=== PATIENT | female | born 1945 | race Caucasian/White ===

== ENCOUNTER 2016-07-29 09:40 | Emergency (ER) | payer OTHER ==
[~2016-07-29] VITALS: Ht 160 cm; Wt 66.3 kg
[~2016-07-29 09:40] MED LIST changes: -ACET-1256 PO; -ASPI81TA28 PO; -ATV5X PO; -CALC0.2510 PO; -CALC1TAB23 PO; -CARV25TA2 PO; -CEPH500C PO; -CHOL2000 PO; -CRD200 PO; -CTP1CL PO; -CYAN100020 PO; -DMD20 PO; -HYDR100T3 PO; -INSDGIPEN SQ; -LORA10TA5 PO; -LPT40 PO; -LXP10 PO; -MULT-603 PO; -NVLGI/PEN SC; -POLY335019 PO; -PROB1TAB16 PO; -PYRI100T4 PO; -RANI150T2 PO; -WARF-283 PO
[2016-07-29 09:44] VITALS: TEMP 36.5; Ht 160 cm; Wt 66.3 kg
[2016-07-29] MEDS ORDERED: SODIUM CHLORIDE 0.9% 1000ML 500 ML IV STA (10:21)
[2016-07-29 11:09] VITALS: O2SAT 96
--- NOTE | 2016-07-29 11:10 | DIAGNOSTIC IMAGING REPORT ---
CT HEAD WITHOUT CONTRAST (CT) CLINICAL HISTORY: Altered mental status. Weakness. COMPARISON STUDY: 07/16/2015 TECHNIQUE: Axial CT of the brain is performed from the vertex to the skull base. IV contrast was not administered for this examination. CT DOSE: 720.95 mGycm FINDINGS: No intra or extra-axial mass lesions are visualized. There is no CT evidence of acute cortical infarction. There is no evidence of midline shift. There is no acute hemorrhage. No calvarial fractures are visualized. There are moderate white matter hypodensities likely on a small vessel basis. There is no evidence of pathologic ventricular dilatation. There is no evidence of acute sinusitis Bilateral basal ganglia calcifications and cerebellar calcifications remain stable. IMPRESSION: No acute intracranial findings Electronically signed by: Tex Sanders M.D. 07/29/2016 11:08 AM Dictated Date/Time: 07/29/2016 11:07 AM
--- NOTE | 2016-07-29 11:21 | DIAGNOSTIC IMAGING REPORT ---
CT OF THE CERVICAL SPINE CLINICAL HISTORY: Neck pain status post trauma COMPARISON STUDY: 07/16/2015 CT DOSE: 518.47 mGycm TECHNIQUE: CT scan of the cervical spine was performed from the skull base to the thoracic inlet. Images are reviewed in the axial, sagittal, and coronal planes. IV contrast was not administered for this examination. FINDINGS: There is a multinodular thyroid gland with nodules measuring up to 5 mm in diameter. There is no pneumothorax. There is a small chronic right mastoid effusion. The prevertebral soft tissues are normal. No fractures or subluxations are visualized. There are moderate multilevel degenerative changes. There is a stable sclerotic lesion within the base of the T1 spinous process. IMPRESSION: No evidence of acute fracture or traumatic subluxation. Electronically signed by: Tex Sanders M.D. 07/29/2016 11:20 AM Dictated Date/Time: 07/29/2016 11:14 AM
[2016-07-29 11:36] LABS: BASO % 0.6 %; BASO ABS # 0.03 K/uL (0-0.2); COMPLETE YES; EOS % 3.6 %; HEMATOCRIT 36.5 % (37-47); IG% 0.2 %; LYMPH % 14.2 %; LYMPH ABS # 0.68 K/uL (1.2-3.4); MEAN CELL VOLUME 92.2 fL (80-100); MEAN CORPUSCULAR HEMOGLOBIN 31.8 pg (25-34); MEAN CORPUSCULAR HGB CONC 34.5 g/dl (32-36); MEAN PLATELET VOLUME 10.9 fL (7.4-10.4); MONO % 12.8 %; NEUT % 68.6 %; PLATELET COUNT 105 K/uL (130-400); RED BLOOD COUNT 3.96 M/uL (4.2-5.4); WHITE BLOOD COUNT 4.78 K/uL (4.8-10.8)
[2016-07-29 11:46] LABS: INR 1.8 (0.9-1.1); PARTIAL THROMBOPLASTIN RATIO 1.2; PROTHROMBIN TIME (PATIENT) 19.4 SECONDS (9.0-12.0)
[2016-07-29 11:56] LABS: ALT/SGPT 28 U/L (12-78); AST/SGOT 26 U/L (15-37); BLOOD UREA NITROGEN 25 mg/dl (7-18); BUN/CREATININE RATIO 8.3 (10-20); CALCIUM 9.5 mg/dl (8.5-10.1); CARBON DIOXIDE 28 mmol/L (21-32); CHLORIDE 101 mmol/L (98-107); GLUCOSE 238 mg/dl (70-99); POTASSIUM 4.3 mmol/L (3.5-5.1); SODIUM 137 mmol/L (136-145)
[2016-07-29 12:01] LABS: ALB/GLOB RATIO 1.2 (0.9-2); ALKALINE PHOSPHATASE 93 U/L (45-117)
[2016-07-29 12:33] VITALS: BP 195/85; PULSE 60; O2SAT 96
--- NOTE | 2016-07-29 14:19 | EMERGENCY ROOM VISIT NOTE ---
History Report prepared by Maurisio: Sharee Emery Under the Supervision of: Dr. Colten Mckenna M.D. First contact with patient: 10:14 Chief Complaint: FALL Stated Complaint: FALL, HEAD PAIN History of Present Illness The patient is a 71 year old female who presents to the Emergency Room with complaints of increased pain to the back of her head and neck since suffering a fall last evening. Currently, she has a mild headache, but she states that she feels the most pain in the back of her neck, and she rates her discomfort as a 7 /10. At the time of onset, the patient was helping her in the shower when she turned around to get something and tripped, hitting the back of her head and neck on the door as she fell to the ground. The patient did not lose consciousness during the episode, but she states that she has had a mild headache since that time. Patient denies suffering pain or injuries to her back , chest, abdomen, pelvis or lower extremities, however, she noticed that her bilateral arms felt weak and painful this morning. The patient states that she has been prepping for a colonoscopy procedure this morning, and she was unsure if her arm pain/weakness was secondary to not eating anything in preparation for the procedure, or due to the position she landed in when she fell last evening. The patient did go to her colonoscopy appointment this morning, but was then referred to the ED for further evaluation as her blood pressure was found to be elevated, and they wanted to make sure that there were no other complications before continuing with the procedure. Patient states does have a history of hypertension and took her Coreg, clonidine and amiodarone as prescribed this morning, but did not take her normal dose of Hydralazine yet this morning as GI instructed her not to take it before the procedure. She currently has a pacemaker in place. Patient denies recent fevers, chills, chest pain, shortness of breath, abdominal pain, nausea, vomiting, diarrhea or urinary symptoms above baseline. Patient is currently on dialysis (Friday, , Friday), but still makes urine. Source of History: patient Onset: last evening Position: head, neck Symptom Intensity: 7/10 Timing: other (current) Associated Symptoms: + headache, + weakness (bilateral arms), No LOC, No SOB , No abdominal pain, No chest pain, No chills, No diarrhea, No fevers, No nausea , No urinary symptoms, No vomiting Review of Systems See HPI for pertinent positives & negatives. A total of 10 systems reviewed and were otherwise negative. 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 (13) Gastroesophageal reflux disease (14) Gram-positive bacteremia (15) Heart failure (16) Hematoma of arm (17) Hypertensive urgency (18) Hypertensive urgency (19) Hypertensive urgency (20) Hysterectomy (21) ICD (22) Left bundle branch block (23) Weakness Family History Diabetes mellitus Heart disease Social History Smoking Status: Never Smoker Alcohol Use: none Drug Use: none Marital Status: Housing Status: lives with family Occupation Status: retired Current/Historical Medications Scheduled Amiodarone Hcl (Cordarone), 200 MG PO QAM Aspirin (Aspirin Ec), 81 MG PO QAM Carvedilol (Carvedilol), 50 MG PO BID Cholecalciferol (Vitamin D3), 4,000 UNITS PO QAM Clonidine HCl (Clonidine HCl), 0.1 MG PO BID Cyanocobalamin (Vitamin B12 500MCG), 1,000 MCG PO QAM Escitalopram (Lexapro), 10 MG PO QAM Hydralazine HCl (Hydralazine HCl), 100 MG PO Q8 Insulin Aspart (Novolog Flexpen), 1 DOSE SC DIRECTED Insulin Glargine (Lantus Solostar), 10 UNITS SQ HS Loratadine (Claritin), 10 MG PO QAM Multiple Vitamin (Multivitamin), 1 TAB PO QAM Probiotic Product (Probiotic), 1 TAB PO QAM Ranitidine (Zantac), 150 MG PO BID Torsemide (Demadex), 10 MG PO QAM Warfarin Sod (Coumadin), 4 MG PO DAILY Allergies Coded Allergies: Diphenhydramine (Verified Allergy, Mild, VERY WEAK, CHF, 07/29/16) Sulfa Antibiotics (Verified Allergy, Mild, "KNOCKS ME OUT", 07/29/16) Adhesives (Verified Allergy, Unknown, RXN TO ADHESIVE ON NITRO PATCH, 07/29) [place] (Verified Allergy, Unknown, UNKNOWN, 07/29/16) DESIREE Inhibitors (Verified Adverse Reaction, Mild, COUGH, 07/29/16) CAUSES COUGH Lisinopril (Verified Adverse Reaction, Mild, COUGH, 07/29/16) Nitroglycerin (Verified Adverse Reaction, Mild, HEADACHE/NAUSEA, 07/29/16) Amlodipine (Verified Adverse Reaction, Unknown, RETAIN FLUID , 07/29/16) Physical Exam Vital Signs Date Time Temp Pulse Resp B/P Pulse Ox O2 Delivery O2 Flow Rate FiO2 07/29/16 12:33 60 16 195/85 96 Room Air 07/29/16 11:09 96 Room Air 07/29/16 11:09 60 16 204/85 95 Room Air 07/29/16 10:38 60 07/29/16 09:44 36.5 60 18 206/91 98 Room Air Physical Exam GENERAL: Patient is in no acute distress. HEENT: No acute trauma, normocephalic atraumatic, mucous membranes moist, no nasal congestion, no scleral icterus. NECK: Stiff collar in place. LUNGS: Clear to auscultation bilaterally, no wheeze, no rhonchi, breath sounds equal. HEART: 3/6 systolic murmur with a regular rate and rhythm. ABDOMEN: Soft, nontender, bowel sounds positive, no hernias, no peritonitis. EXTREMITIES: No cyanosis or edema, full range of motion of all the joints without pain or difficulty, no signs for acute trauma. NEUROLOGIC: Oriented x 3, no acute motor or sensory deficits, no focal weakness. SKIN: No rash, no jaundice, no diaphoresis. Medical Decision & Procedures ER Provider Diagnostic Interpretation: CT results as stated below per my review and radiologist interpretation: CT HEAD WITHOUT CONTRAST (CT) CLINICAL HISTORY: Altered mental status. Weakness. COMPARISON STUDY: 07/16/2015 TECHNIQUE: Axial CT of the brain is performed from the vertex to the skull base. IV contrast was not administered for this examination. CT DOSE: 720.95 mGycm FINDINGS: No intra or extra-axial mass lesions are visualized. There is no CT evidence of acute cortical infarction. There is no evidence of midline shift. There is no acute hemorrhage. No calvarial fractures are visualized. There are moderate white matter hypodensities likely on a small vessel basis. There is no evidence of pathologic ventricular dilatation. There is no evidence of acute sinusitis Bilateral basal ganglia calcifications and cerebellar calcifications remain stable. IMPRESSION: No acute intracranial findings Electronically signed by: Tex Sanders M.D. 07/29/2016 11:08 AM Dictated Date/Time: 07/29/2016 11:[address] OF THE CERVICAL SPINE CLINICAL HISTORY: Neck pain status post trauma COMPARISON STUDY: 07/16/2015 CT DOSE: 518.47 mGycm TECHNIQUE: CT scan of the cervical spine was performed from the skull base to the thoracic inlet. Images are reviewed in the axial, sagittal, and coronal planes. IV contrast was not administered for this examination. FINDINGS: There is a multinodular thyroid gland with nodules measuring up to 5 mm in diameter. There is no pneumothorax. There is a small chronic right mastoid effusion. The prevertebral soft tissues are normal. No fractures or subluxations are visualized. There are moderate multilevel degenerative changes. There is a stable sclerotic lesion within the base of the T1 spinous process. IMPRESSION: No evidence of acute fracture or traumatic subluxation. Electronically signed by: Tex Sanders M.D. 07/29/2016 11:20 AM Dictated Date/Time: 07/29/2016 11:14 AM Laboratory Results 07/29/16 11:20 Red Blood Count 3.96, Mean Corpuscular Volume 92.2, Mean Corpuscular Hemoglobin 31.8, Mean Corpuscular Hemoglobin Concent 34.5, Mean Platelet Volume 10.9, Neutrophils (%) (Auto) 68.6, Lymphocytes (%) (Auto) 14.2, Monocytes (%) (Auto) 12.8, Eosinophils (%) (Auto) 3.6, Basophils (%) (Auto) 0.6, Neutrophils # (Auto ) 3.28, Lymphocytes # (Auto) 0.68, Monocytes # (Auto) 0.61, Eosinophils # (Auto ) 0.17, Basophils # (Auto) 0.03 07/29/16 11:20 Test 07/29/16 11:20 White Blood Count 4.78 K/uL (4.8-10.8) Red Blood Count 3.96 M/uL (4.2-5.4) Hemoglobin 12.6 g/dL (12.0-16.0) Hematocrit 36.5 % (37-47) Mean Corpuscular Volume 92.2 fL (80-100) Mean Corpuscular Hemoglobin 31.8 pg (25-34) Mean Corpuscular Hemoglobin Concent 34.5 g/dl (32-36) Platelet Count 105 K/uL (130-400) Mean Platelet Volume 10.9 fL (7.4-10.4) Neutrophils (%) (Auto) 68.6 % Lymphocytes (%) (Auto) 14.2 % Monocytes (%) (Auto) 12.8 % Eosinophils (%) (Auto) 3.6 % Basophils (%) (Auto) 0.6 % Neutrophils # (Auto) 3.28 K/uL (1.4-6.5) Lymphocytes # (Auto) 0.68 K/uL (1.2-3.4) Monocytes # (Auto) 0.61 K/uL (0.11-0.59) Eosinophils # (Auto) 0.17 K/uL (0-0.5) Basophils # (Auto) 0.03 K/uL (0-0.2) RDW Standard Deviation 49.1 fL (36.4-46.3) RDW Coefficient of Variation 14.5 % (11.5-14.5) Immature Granulocyte % (Auto) 0.2 % Immature Granulocyte # (Auto) 0.01 K/uL (0.00-0.02) Prothrombin Time 19.4 SECONDS (9.0-12.0) Prothromb Time International Ratio 1.8 (0.9-1.1) Activated Partial Thromboplast Time 31.3 SECONDS (21.0-31.0) Partial Thromboplastin Ratio 1.2 Anion Gap 8.0 mmol/L (3-11) Est Creatinine Clear Calc Drug Dose 15.7 ml/min Estimated GFR () 17.4 Estimated GFR (Non- 15.0 BUN/Creatinine Ratio 8.3 (10-20) Calcium Level 9.5 mg/dl (8.5-10.1) Total Bilirubin 0.8 mg/dl (0.2-1) Aspartate Amino Transf (AST/SGOT) 26 U/L (15-37) Alanine Aminotransferase (ALT/SGPT) 28 U/L (12-78) Alkaline Phosphatase 93 U/L (45-117) Troponin I < 0.015 ng/ml (0-0.045) Total Protein 6.9 gm/dl (6.4-8.2) Albumin 3.7 gm/dl (3.4-5.0) Globulin 3.2 gm/dl (2.5-4.0) Albumin/Globulin Ratio 1.2 (0.9-2) Laboratory results reviewed by me. Medications Administered Medications (Trade) Dose Ordered Sig/Rayna Route Start Time Stop Time Status Last Admin Dose Admin Hydralazine HCl (Apresoline Tab) 100 mg NOW STAT PO 07/29/16 10:21 07/29/16 10:29 DC 07/29/16 10:44 100 MG ECG Indication: weakness Rate (beats per minute): 60 Rhythm: other (AV dual paced) Findings: no acute ischemic change Change: no significant change (when compared to EKG from 04/08/16.) ED Course 1016: The patient was evaluated in room C9. A complete history and physical exam was performed. 1021: Hydralazine HCl 100 mg PO and NSS bolus IV were ordered. 1216: Upon reevaluation, the patient was doing well and appeared to be resting comfortably. I updated her on the results of her radiology reports and lab tests. Stiff c-collar was removed without complications. Discharge instructions were also discussed. She verbalized her understanding and agreement with the treatment plan, and she is now ready for disposition. Medical Decision The patient is a 71 year old female who presents to the ED with complaints of increased pain to the back of her head and neck since suffering a fall last evening. Differential diagnoses considered include intracranial bleeding, skull fracture, cervical spine fracture, cervical cord contusion, cervical strain, anemia, electrolyte imbalance, infection. There is no leukocytosis or worrisome anemia. Renal panel testing shows a high creatinine consistent with her dialysis use. No significant electrolyte abnormality requiring correction. There was no hepatitis. INR is elevated at 1.8 consistent with her Coumadin use. Brain CT shows no skull fracture or acute bleeding. C-spine CT shows no acute fracture. On exam, the patient had no focal neurologic deficits. Her collar was eventually removed, she felt better with the cervical collar off, her neck motion was full without significant pain. The patient received IV saline, as she had not received her oral hydralazine this morning, this dose was given. The patient was reassured by her findings. She has suffered some head trauma and a cervical strain. She can be discharged. She will return for worsening symptoms. Impression Primary Impression: Head pain Additional Impressions: Head trauma Neck pain Fall Scribe Attestation The scribe's documentation has been prepared under my direction and personally reviewed by me in its entirety. I confirm that the note above accurately reflects all work, treatment, procedures, and medical decision making performed by me. Departure Information Dispostion Home / Self-Care Referrals Luh Hargrove M.D. (PCP) Forms HOME CARE DOCUMENTATION FORM, IMPORTANT VISIT INFORMATION Patient Instructions My [facility] Additional Instructions tylenol for pain ice to the sore areas return for worsening symptoms or weakness imaging today was all ok Problem Qualifiers
[2016-12-24] MEDS ORDERED: INSDGIPEN SQ (17:00)
[2017-02-28] MEDS ORDERED: CHOL2000 PO (14:46)
== END 2016-07-29 12:45 | disposition home or self-care (01) ==
LOC: EDBD 09:40 → C.EDC 09:41
DX: R51 Headache (principal); S09.90XA Unspecified injury of head, initial encounter; M54.2 Cervicalgia; W01.0XXA Fall on same level from slipping, tripping and stumbling without subsequent striking against object, initial encounter; Y92.012 Bathroom of single-family (private) house as the place of occurrence of the external cause; I12.9 Hypertensive chronic kidney disease with stage 1 through stage 4 chronic kidney disease, or unspecified chronic kidney disease; N18.3 Chronic kidney disease, stage 3 (moderate); E11.9 Type 2 diabetes mellitus without complications; I48.91 Unspecified atrial fibrillation; E78.5 Hyperlipidemia, unspecified; I50.9 Heart failure, unspecified; Z95.0 Presence of cardiac pacemaker; D64.9 Anemia, unspecified; K21.9 Gastro-esophageal reflux disease without esophagitis; F32.9 Major depressive disorder, single episode, unspecified; Z79.82 Long term (current) use of aspirin; Z79.4 Long term (current) use of insulin; Z79.899 Other long term (current) drug therapy; Z12.11 Encounter for screening for malignant neoplasm of colon; Z53.8 Procedure and treatment not carried out for other reasons; Z79.01 Long term (current) use of 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; Z86.73 Personal history of transient ischemic attack (TIA), and cerebral infarction without residual deficits; G40.909 Epilepsy, unspecified, not intractable, without status epilepticus

== ENCOUNTER → 2016-07-29 | Day surgery (SDC) | payer OTHER ==
[2016-07-25 14:48] VITALS: Ht 162.6 cm; Wt 68.2 kg
[~2016-07-29] VITALS: Ht 162.6 cm; Wt 68.2 kg
[~2016-07-29] MED LIST: ACET-1256 PO; AMIO200T4 PO; APR50 PO; ASPI81TA28 PO; ATV5X PO; CALC0.2510 PO; CALC1TAB23 PO; CARV25TA2 PO; CEPH500C PO; CHOL2000 PO; CMD4 PO; CRD200 PO; CRG25 PO; CTP1 PO; CTP1CL PO; CYAN100020 PO; CYAN500T13 PO; DMD20 PO; ESCI10TA17 PO; HYDR100T3 PO; INSDGIPEN SQ; LORA10TA5 PO; LPT40 PO; LXP10 PO; MULT-603 PO; MULTTAB58 PO; NVLGI/PEN SC; POLY335019 PO; PROB1TAB16 PO; PYRI100T4 PO; RANI150T2 PO; TORS20TA2 PO; WARF-283 PO; ZNTT/150 PO
[2016-07-29 09:32] VITALS: BP 205/92; PULSE 60; TEMP 36.5; O2SAT 99
--- NOTE | 2016-07-29 09:39 | Endo History and Physical ---
History & Physical Date of Service: Jul 29, 2016. Chief Complaint: Screening Referring Physician: Dr. Sallei Hargrove History of Present Illness Patient here for screening colonoscopy. Patient fell today helping her and hit her head. She is on Coumadin and her BP is significantly elevated. After discussion with Anesthesia, the case was cancelled and patient was sent to ER for evaluation. Message was sent to reschedule at a later date. Past Medical History Diabetes, Arthritis, Pacemaker, Anxiety, Seizure Disorder, CHF, Hypertension, CVA/TIA, Depression Past Surgical History Hx Cardiac Surgery: Yes (HEART CATH (AT LEAST 2 TIMES)-NO STENTS) Hx Internal Defibrillator: Yes (PACEMAKER/DEFIB) Hx Pacemaker: Yes (PACEMAKER/DEFIB) Hx Abdominal Surgery: Yes (APPY, PARTIAL HYSTERECTOMY, D&C) Hx of Implantable Prosthesis: No Hx Post-Op Nausea and Vomiting: Yes Hx Cancer Surgery: No Hx Thoracic Surgery: Yes (PERICARDIAL WINDOW (INCISION OF HEART SAC FOR FLUID IN HEART)) Hx Orthopedic: No Hx Urinary Tract Surgery: No Family History None Social History Smoking Status: Never Smoker Hx Substance Use: No Hx Alcohol Use: No Allergies Coded Allergies: Diphenhydramine (Verified Allergy, Mild, VERY WEAK, CHF, 07/29/16) Sulfa Antibiotics (Verified Allergy, Mild, "KNOCKS ME OUT", 07/29/16) Adhesives (Verified Allergy, Unknown, RXN TO ADHESIVE ON NITRO PATCH, 07/29) [place] (Verified Allergy, Unknown, UNKNOWN, 07/29/16) DESIREE Inhibitors (Verified Adverse Reaction, Mild, COUGH, 07/29/16) CAUSES COUGH Lisinopril (Verified Adverse Reaction, Mild, COUGH, 07/29/16) Nitroglycerin (Verified Adverse Reaction, Mild, HEADACHE/NAUSEA, 07/29/16) Amlodipine (Verified Adverse Reaction, Unknown, RETAIN FLUID , 07/29/16) Current Medications Reported Home Medications Medications Dose Route/Sig Max Daily Dose Days Date Category Dose Instructions Vitamin B12 500MCG (Cyanocobalamin) 500 Mcg Tab 2 Tab PO QAM 07/25/16 Reported Vitamin D3 (Cholecalciferol) 2,000 Unit Cap 2 Cap PO QAM 90 07/25/16 Reported Cordarone (Amiodarone Hcl) 200 Mg Tab 200 Mg PO QAM 07/25/16 Reported Demadex (Torsemide) 20 Mg Tab 10 Mg PO QAM 07/25/16 Reported Probiotic (Probiotic Product) 1 Tab Tab 1 Tab PO QAM 04/08/16 Reported Lantus Solostar (Insulin Glargine) 100 Unit/Ml Inj 10 Units SQ HS 04/08/16 Reported Lexapro (Escitalopram Oxalate) 10 Mg Tab 10 Mg PO QAM 04/08/16 Reported Hydralazine HCl 50 Mg Tab 100 Mg PO Q8 30 07/26/15 Rx Clonidine HCl 0.1 Mg Tab 0.1 Mg PO BID 30 07/26/15 Rx Carvedilol 25 Mg Tab 50 Mg PO BID 30 07/26/15 Rx Zantac (Ranitidine HCl) 150 Mg Tab 150 Mg PO BID 07/16/15 Reported Coumadin (Warfarin Sod) 4 Mg Tab 4 Mg PO DAILY 07/16/15 Reported Aspirin Ec (Aspirin) 81 Mg Tab 81 Mg PO QAM 05/29/15 Reported Novolog Flexpen (Insulin Aspart) 100 Units/Ml Inj 1 Dose SC DIRECTED 07/06/14 Reported SLIDING SCALE Multivitamin (Multiple Vitamin) 1 Tab Tab 1 Tab PO QAM 04/28/12 Reported Claritin (Loratadine) 10 Mg Tab 10 Mg PO QAM 11/07/11 Reported Vital Signs Weight (Kilograms): 68.18 Height (Feet): 5 Height (Inches): 4 Date Time Temp Pulse Resp B/P Pulse Ox O2 Delivery O2 Flow Rate FiO2 07/29/16 09:32 36.5 60 20 205/92 99 Room Air Physical Exam General Appearance: no apparent distress (several small bruises on body) Respiratory/Chest: Auscultation: breath sounds normal Cardiovascular: Heart Auscultation: RRR (with ectopy) Abdomen: Inspection & Palpation: soft, no masses Assessment and Plan colonoscopy cancelled.
--- NOTE | 2016-07-29 10:32 | Anesthesiology Progress Note ---
Anesthesia Progress Note Date of Service Jul 29, 2016. Progress Notes Patient presented this am for colonoscopy.Pt is taking warfarin.Pt admitted to having a fall last evening of07/28/2015 and hitting her head.I have discussed this with Dr Luther. He agrees that the patient should go to ER and be evaluated. We both feel that it's best to cancel the procedure as the risks outweigh the benefits.
== END | disposition home or self-care (01) ==
LOC: C.GI 08:39
PROVIDERS: ATTEND Internal Medicine Gastroenterology
DX: Z12.11 Encounter for screening for malignant neoplasm of colon (principal); I10 Essential (primary) hypertension; Z53.8 Procedure and treatment not carried out for other reasons; Z79.01 Long term (current) use of 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; E11.9 Type 2 diabetes mellitus without complications; Z86.73 Personal history of transient ischemic attack (TIA), and cerebral infarction without residual deficits; G40.909 Epilepsy, unspecified, not intractable, without status epilepticus; Z95.810 Presence of automatic (implantable) cardiac defibrillator

== ENCOUNTER 2016-12-24 21:52 | Emergency (ER) | payer OTHER ==
[~2016-12-24] VITALS: Ht 160 cm; Wt 48.0 kg
[~2016-12-24 21:52] MED LIST changes: +INSDGIPEN SQ
[2016-12-24 21:56] VITALS: TEMP 36.6; Ht 160 cm; Wt 48.0 kg
--- NOTE | 2016-12-24 22:54 | DIAGNOSTIC IMAGING REPORT ---
CHEST ONE VIEW PORTABLE CLINICAL HISTORY: Atypical chest pain. COMPARISON STUDY: 04/09/2016 FINDINGS: There is a left subclavian pacer/defibrillator present. There is a dual-lumen left subclavian central venous catheter. The heart is enlarged. There is no overt failure. There is no lobar consolidation. There are linear atelectatic changes within the left lower lung zone.[ IMPRESSION: Cardiomegaly. Left middle and lower lung zone atelectatic change. Electronically signed by: Tex Sanders M.D. 12/24/2016 10:52 PM Dictated Date/Time: 12/24/2016 10:52 PM
--- NOTE | 2016-12-24 22:55 | DIAGNOSTIC IMAGING REPORT ---
LEFT HAND MIN 3 VIEWS ROUTINE CLINICAL HISTORY: Left hand pain status post trauma COMPARISON: None. DISCUSSION: The bones are osteopenic. There are no acute fractures or dislocations. There are osteoarthritic changes most pronounced the level the first carpometacarpal joint, and distal interphalangeal joint of the index finger. IMPRESSION: Degenerative change. No acute fractures are visualized. Electronically signed by: Tex Sanders M.D. 12/24/2016 10:53 PM Dictated Date/Time: 12/24/2016 10:53 PM
--- NOTE | 2016-12-24 22:56 | DIAGNOSTIC IMAGING REPORT ---
RIGHT KNEE 1 OR 2 VIEWS ROUTINE CLINICAL HISTORY: RIGHT KNEE PAIN STATUS POST TRAUMA COMPARISON: None. DISCUSSION: There are moderate degenerative changes with moderate medial joint compartment narrowing. There are medial and lateral joint compartment osteophytic spurs. There is a dorsal patellar spur. No acute fractures or dislocations are visualized. There is no radiographic evidence of a significant joint effusion. IMPRESSION: Moderate osteoarthritic change. No acute fractures. Electronically signed by: Tex Sanders M.D. 12/24/2016 10:55 PM Dictated Date/Time: 12/24/2016 10:54 PM
[2016-12-24 23:17] LABS: BASO % 0.3 %; BASO ABS # 0.02 K/uL (0-0.2); COMPLETE YES; EOS % 1.9 %; HEMATOCRIT 33.4 % (37-47); IG% 0.6 %; LYMPH ABS # 1.02 K/uL (1.2-3.4); MEAN CELL VOLUME 95.2 fL (80-100); MEAN CORPUSCULAR HEMOGLOBIN 30.8 pg (25-34); MEAN CORPUSCULAR HGB CONC 32.3 g/dl (32-36); MEAN PLATELET VOLUME 10.7 fL (7.4-10.4); NEUT % 71.2 %; PLATELET COUNT 117 K/uL (130-400); RED BLOOD COUNT 3.51 M/uL (4.2-5.4); WHITE BLOOD COUNT 6.82 K/uL (4.8-10.8)
[2016-12-24 23:33] LABS: INR 2.3 (0.9-1.1); PARTIAL THROMBOPLASTIN RATIO 1.3; PROTHROMBIN TIME (PATIENT) 25.9 SECONDS (9.0-12.0)
[2016-12-24 23:41] LABS: BUN/CREATININE RATIO 11.2 (10-20); CALCIUM 8.6 mg/dl (8.5-10.1); CREATININE 3.1 mg/dl (0.60-1.20); POTASSIUM 4.4 mmol/L (3.5-5.1)
[2016-12-24 23:50] LABS: BETA-HYDROXYBUTYRATE 1.66 mg/dL (0.2-2.81)
[2016-12-25 01:01] VITALS: BP 189/76; PULSE 60; O2SAT 96
--- NOTE | 2016-12-25 01:07 | EMERGENCY ROOM VISIT NOTE ---
History Report prepared by Maurisio: Linda Wray Under the Supervision of: Dr. Rodolfo Bo M.D. First contact with patient: 22:21 Chief Complaint: FALL Stated Complaint: FELL, HAVE BUMP ON HEAD History of Present Illness The patient is a 71 year old female who presents to the Emergency Room with complaints of a fall at 1930 today. She was walking back into her house and was not looking where she was going when she fell. She hit her head on a post, injured her right knee, and cut her finger. She could feel a bump forming on her head right after she fell. She has a headache. Her cousin reports no confusion after the fall. She denies any bloody stools, vision changes, chest pain, SOB, numbness, weakness, abdominal pain, neck pain, or face pain. She has been feeling well recently. She has a history of diabetes and her sugars have been running high recently. She is on Coumadin. She is a dialysis patient. Source of History: patient Onset: 1929 today Position: other (global) Quality: other (fall) Timing: other (episodic) Associated Symptoms: + headache, No neck pain, No chest pain, No SOB, No abdominal pain, No hematochezia, No weakness, No numbness Note: Pt reports finger pain, right knee pain. Pt denies vision changes. Review of Systems See HPI for pertinent positives & negatives. A total of 10 systems reviewed and were otherwise negative. 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 Nurse's notes were reviewed and I agree with. She gets dialysis on Friday and received dialysis today. Family History Diabetes mellitus Heart disease Social History Smoking Status: Never Smoker Alcohol Use: none Drug Use: none Marital Status: Housing Status: lives with family Occupation Status: retired Current/Historical Medications Scheduled Amiodarone HCl (Amiodarone HCl), 200 MG PO DAILY Aspirin (Aspirin Ec), 81 MG PO QAM Carvedilol (Coreg), 50 MG PO BIDM Cholecalciferol (Vitamin D3), 4,000 INTER.UNIT PO QAM Clonidine Hcl (Catapres), 0.1 MG PO BID Cyanocobalamin (Vitamin B12), 1,000 MCG PO QAM Escitalopram Oxalate (Escitalopram Oxalate), 10 MG PO QAM Hydralazine HCl (Hydralazine HCl), 100 MG PO Q8 Insulin Aspart (Novolog Flexpen), 1 DOSE SC UD Insulin Glargine (Lantus Solostar), 20 UNITS SQ HS Multiple Vitamins W/ Minerals (Womens Multi Vitamin & Mi), 1 TAB PO DAILY Probiotic Product (Probiotic), 1 TAB PO QAM Pyridoxine (Vitamin B6), 100 MG PO DAILY Ranitidine HCl (Ranitidine HCl), 150 MG PO BID Torsemide (Torsemide), 10 MG PO QAM Warfarin Sodium (Warfarin Sodium), 4 MG PO 5XWK Warfarin Sodium (Warfarin Sodium), 6 MG PO 2XWK Scheduled PRN Acetaminophen (Tylenol), 500 MG PO UD PRN for Pain or Fever Loratadine (Claritin), 10 MG PO QAM PRN for Allergy Symptoms Allergies Coded Allergies: Diphenhydramine (Verified Allergy, Mild, VERY WEAK, CHF, 07/29/16) Sulfa Antibiotics (Verified Allergy, Mild, "KNOCKS ME OUT", 07/29/16) Adhesives (Verified Allergy, Unknown, RXN TO ADHESIVE ON NITRO PATCH, 07/29) [place] (Verified Allergy, Unknown, UNKNOWN, 07/29/16) DESIREE Inhibitors (Verified Adverse Reaction, Mild, COUGH, 07/29/16) CAUSES COUGH Lisinopril (Verified Adverse Reaction, Mild, COUGH, 07/29/16) Nitroglycerin (Verified Adverse Reaction, Mild, HEADACHE/NAUSEA, 07/29/16) Amlodipine (Verified Adverse Reaction, Unknown, RETAIN FLUID , 07/29/16) Physical Exam Vital Signs Date Time Temp Pulse Resp B/P (MAP) Pulse Ox O2 Delivery O2 Flow Rate FiO2 12/25/16 01:01 60 20 189/76 96 Room Air 12/24/16 23:23 60 20 189/66 93 Room Air 12/24/16 21:56 36.6 61 18 180/69 97 Room Air Physical Exam General: Non ill appearing older female. Well developed well nourished in no acute distress, breathing comfortably on room air. Normal speech. HEENT: Large hematoma in right forehead, no laceration. Pupils are equal round and reactive to light. Extraocular movements are intact. Oropharynx is pink with moist mucous membranes. No swelling of the mouth lips or tongue. Neck: Supple with a midline trachea. No meningeal signs or stiffness, no JVD or bruits. No Stridor. Chest: Clear to auscultation bilaterally. No wheezes or rhonchi. No increased work of breathing. Catheter in left chest. Heart: regular rate and rhythm. Abdomen: Soft nontender, nondistended without rebound guarding or rigidity. Extremities: No cyanosis clubbing or edema. No calf tenderness or assymetry. Fistula in left arm. Minimal bruising of the left thumb. Mild bruising of the right knee. Spine/Back. Non tender to palpation. No CVA tenderness Skin: Good turgor without rashes. Neurologic exam: Cranial nerves two through 12 are intact. Motor and sensation are intact and symmetrical throughout. GCS of 15. Medical Decision & Procedures ER Provider Diagnostic Interpretation: X-ray results as stated below per interpretation by me and the radiologist. Radiology results as stated below per my review and [facility] radiologist interpretation: RIGHT KNEE 1 OR 2 VIEWS ROUTINE CLINICAL HISTORY: RIGHT KNEE PAIN STATUS POST TRAUMA COMPARISON: None. DISCUSSION: There are moderate degenerative changes with moderate medial joint compartment narrowing. There are medial and lateral joint compartment osteophytic spurs. There is a dorsal patellar spur. No acute fractures or dislocations are visualized. There is no radiographic evidence of a significant joint effusion. IMPRESSION: Moderate osteoarthritic change. No acute fractures. Electronically signed by: Tex Sanders M.D. 12/24/2016 10:55 PM Dictated Date/Time: 12/24/2016 10:54 PM CHEST ONE VIEW PORTABLE CLINICAL HISTORY: Atypical chest pain. COMPARISON STUDY: 04/09/2016 FINDINGS: There is a left subclavian pacer/defibrillator present. There is a dual-lumen left subclavian central venous catheter. The heart is enlarged. There is no overt failure. There is no lobar consolidation. There are linear atelectatic changes within the left lower lung zone.[ IMPRESSION: Cardiomegaly. Left middle and lower lung zone atelectatic change. Electronically signed by: Tex Sanders M.D. 12/24/2016 10:52 PM Dictated Date/Time: 12/24/2016 10:52 PM LEFT HAND MIN 3 VIEWS ROUTINE CLINICAL HISTORY: Left hand pain status post trauma COMPARISON: None. DISCUSSION: The bones are osteopenic. There are no acute fractures or dislocations. There are osteoarthritic changes most pronounced the level the first carpometacarpal joint, and distal interphalangeal joint of the index finger. IMPRESSION: Degenerative change. No acute fractures are visualized. Electronically signed by: Tex Sanders M.D. 12/24/2016 10:53 PM Dictated Date/Time: 12/24/2016 10:[address] Head: Comparison: 07/29/2016 No evidence of acute infarct, hemorrhage, mass, or edema. Chronic small vessel ischemic disease and senescent changes. Moderate-sized frontal right scalp hematoma. The sinuses are patent. Laboratory Results 12/24/16 23:00 Red Blood Count 3.51, Mean Corpuscular Volume 95.2, Mean Corpuscular Hemoglobin 30.8, Mean Corpuscular Hemoglobin Concent 32.3, Mean Platelet Volume 10.7, Neutrophils (%) (Auto) 71.2, Lymphocytes (%) (Auto) 15.0, Monocytes (%) (Auto) 11.0, Eosinophils (%) (Auto) 1.9, Basophils (%) (Auto) 0.3, Neutrophils # (Auto ) 4.86, Lymphocytes # (Auto) 1.02, Monocytes # (Auto) 0.75, Eosinophils # (Auto ) 0.13, Basophils # (Auto) 0.02 12/24/16 23:00 Test 12/24/16 23:00 White Blood Count 6.82 K/uL (4.8-10.8) Red Blood Count 3.51 M/uL (4.2-5.4) Hemoglobin 10.8 g/dL (12.0-16.0) Hematocrit 33.4 % (37-47) Mean Corpuscular Volume 95.2 fL (80-100) Mean Corpuscular Hemoglobin 30.8 pg (25-34) Mean Corpuscular Hemoglobin Concent 32.3 g/dl (32-36) Platelet Count 117 K/uL (130-400) Mean Platelet Volume 10.7 fL (7.4-10.4) Neutrophils (%) (Auto) 71.2 % Lymphocytes (%) (Auto) 15.0 % Monocytes (%) (Auto) 11.0 % Eosinophils (%) (Auto) 1.9 % Basophils (%) (Auto) 0.3 % Neutrophils # (Auto) 4.86 K/uL (1.4-6.5) Lymphocytes # (Auto) 1.02 K/uL (1.2-3.4) Monocytes # (Auto) 0.75 K/uL (0.11-0.59) Eosinophils # (Auto) 0.13 K/uL (0-0.5) Basophils # (Auto) 0.02 K/uL (0-0.2) RDW Standard Deviation 49.6 fL (36.4-46.3) RDW Coefficient of Variation 14.4 % (11.5-14.5) Immature Granulocyte % (Auto) 0.6 % Immature Granulocyte # (Auto) 0.04 K/uL (0.00-0.02) Prothrombin Time 25.9 SECONDS (9.0-12.0) Prothromb Time International Ratio 2.3 (0.9-1.1) Activated Partial Thromboplast Time 34.8 SECONDS (21.0-31.0) Partial Thromboplastin Ratio 1.3 Anion Gap 10.0 mmol/L (3-11) Est Creatinine Clear Calc Drug Dose 12.6 ml/min Estimated GFR () 16.7 Estimated GFR (Non- 14.4 BUN/Creatinine Ratio 11.2 (10-20) Calcium Level 8.6 mg/dl (8.5-10.1) Total Bilirubin 0.5 mg/dl (0.2-1) Direct Bilirubin 0.1 mg/dl (0-0.2) Aspartate Amino Transf (AST/SGOT) 20 U/L (15-37) Alanine Aminotransferase (ALT/SGPT) 29 U/L (12-78) Alkaline Phosphatase 111 U/L (45-117) Total Protein 7.0 gm/dl (6.4-8.2) Albumin 3.7 gm/dl (3.4-5.0) Lipase 150 U/L (73-393) Beta-Hydroxybutyric Acid 1.66 mg/dL (0.2-2.81) Laboratory studies as stated above per my review. ECG Indication: other (fall) Rate (beats per minute): 60 Rhythm: other (dual paced AV pacemaker) Findings: no acute ischemic change Comparison ECG Date: 29-Jul-2016 Change: no significant change ED Course 2222: Past medical records reviewed. The patient was evaluated in room C11B, and a complete history and physical examination were performed. 0055: Upon reevaluation, the patient is resting comfortably. I discussed the results and treatment plan with her. I offered her admission for observation, but she declines and would like to go home. She verbalized agreement of the treatment plan. The patient was discharged home. Medical Decision Differentials include, but are not limited to; intracranial hemorrhage, skull fracture, arrhythmia, anticoagulated, orthopedic injury, electrolyte or metabolic abnormality. Medication Reconciliation: I attest that I have personally reviewed the patient' s current medication list. Blood pressure Screening: Patient was found to have an elevated blood pressure, likely related to trauma, and was referred to their primary doctor for recheck and further treatment. This patient comes in as described above. She was placed room C 11. She suffered mechanical fall and has a large hematoma to her right forehead. She looks well besides this however. She has a normal neurologic exam and besides having a mild headache, she has no other complaints. She denies syncope but says this was a mechanical fall. She does have significant medical history however with the fact that she is on Coumadin and she's also dialysis patient. Multiple blood testing was obtained. IV access was established and she has no acute electrolyte or metabolic abnormality. She does have baseline renal failure but no issues with her potassium acutely. CAT scan of her head was unremarkable. Her INR is in the low 2 range. EKG does not suggest acute coronary syndrome or arrhythmia. She looks good and desires to go home. I talked to the patient as well as her family member about possibly observing her given the fact that she hit her head has a large hematoma and is on Coumadin and dialysis. I told her there is a small chance she could have a delayed bleed. She aknowledges but does not want to stay in the hospital. Given her negative CAT scan is reasonable follow-up with her doctor tomorrow and return to ER in the meantime if she has headache, vomiting, not acting like self, worsening of symptoms, any new problems or concerns. Should ice this intermittently. She was happy with the plan and will be discharged to home. Impression Primary Impression: Concussion Additional Impressions: Forehead contusion Anticoagulated on Coumadin ESRD (end stage renal disease) Scribe Attestation The scribe's documentation has been prepared under my direction and personally reviewed by me in its entirety. I confirm that the note above accurately reflects all work, treatment, procedures, and medical decision making performed by me. Departure Information Dispostion Home / Self-Care Referrals Luh Hargrove M.D. (PCP) Forms HOME CARE DOCUMENTATION FORM, IMPORTANT VISIT INFORMATION Patient Instructions My [facility] Additional Instructions Rest. Ice intermittently. Follow-up with your doctor tomorrow for recheck Return if: increasing pain, headache, worsening of symptoms, not acting like self, numbness or weakness, any new problems or concerns Problem Qualifiers
--- NOTE | 2016-12-25 07:16 | DIAGNOSTIC IMAGING REPORT ---
HEAD CT NONCONTRAST CT DOSE: 537.48 mGy.cm HISTORY: eval for trauma TECHNIQUE: Multiaxial CT images of the head were performed without the use of intravenous contrast. Automated exposure control was utilized for this study. Comparison: Head CT 07/29/2016. Findings: The paranasal sinuses and mastoid air cells are clear. The calvarium and skull base are intact. There is no mass, hematoma, midline shift, acute infarct. White matter hypodensity is nonspecific but suggestive of microvascular ischemic change. The ventricles and sulci are within normal limits. Bilateral basal ganglia calcifications and cerebellar calcifications are again noted. Right frontal scalp hematoma. Impression: No acute intracranial abnormality. Right frontal scalp injury. Electronically signed by: Cristian Renteria M.D. 12/25/2016 7:14 AM Dictated Date/Time: 12/25/2016 7:13 AM
[2017-02-28] MEDS ORDERED: CHOL2000 PO (14:46)
== END 2016-12-25 01:13 | disposition home or self-care (01) ==
LOC: C.EDB 21:52 → C.EDC 12-25 01:13
DX: S06.0X0A Concussion without loss of consciousness, initial encounter (principal); S00.83XA Contusion of other part of head, initial encounter; W19.XXXA Unspecified fall, initial encounter; Y92.019 Unspecified place in single-family (private) house as the place of occurrence of the external cause; N18.6 End stage renal disease; Z79.01 Long term (current) use of 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; Z99.2 Dependence on renal dialysis; E11.9 Type 2 diabetes mellitus without complications; I48.91 Unspecified atrial fibrillation; F32.9 Major depressive disorder, single episode, unspecified; E78.5 Hyperlipidemia, unspecified; K21.9 Gastro-esophageal reflux disease without esophagitis; I50.9 Heart failure, unspecified; Z83.3 Family history of diabetes mellitus; Z82.49 Family history of ischemic heart disease and other diseases of the circulatory system; Z79.82 Long term (current) use of aspirin; Z79.4 Long term (current) use of insulin; Z79.899 Other long term (current) drug therapy

== ENCOUNTER 2017-02-28 15:42 | Emergency (ER) | payer OTHER ==
[~2017-02-28 15:42] MED LIST changes: -AMIO200T4 PO; -APR50 PO; +CHOL2000 PO; -CMD4 PO; -CRG25 PO; -CTP1 PO; -CYAN500T13 PO; -ESCI10TA17 PO; -MULTTAB58 PO; -TORS20TA2 PO; -ZNTT/150 PO
[2017-02-28 15:53] VITALS: TEMP 36.6
--- NOTE | 2017-02-28 16:36 | DIAGNOSTIC IMAGING REPORT ---
SINGLE VIEW CHEST CLINICAL HISTORY: Generalized weakness. FINDINGS: An AP, portable, upright chest radiograph is compared to study dated 12/24/2016. The examination is degraded by portable technique and patient rotation. A left subclavian central venous catheter is unchanged in position, as is a 3-lead cardiac AICD which largely obscures the left upper chest. The heart is enlarged and there is atherosclerotic calcification of the thoracic aorta. The pulmonary vascular is noncongested. Chronic interstitial thickening is similar to previous. Linear atelectasis versus scarring is seen in the left lower lung. No airspace consolidation, large pleural effusion, or pneumothorax is seen. The skeletal structures are osteopenic. The bony thorax is grossly intact. IMPRESSION: 1. Cardiomegaly and AICD. There is no radiographic evidence of congestive failure. 2. There is no airspace consolidation or large pleural effusion. Electronically signed by: Colten Jacinto M.D. 02/28/2017 4:35 PM Dictated Date/Time: 02/28/2017 4:34 PM
[2017-02-28 16:41] LABS: BASO % 0.4 %; BASO ABS # 0.03 K/uL (0-0.2); COMPLETE YES; EOS % 1.9 %; HEMATOCRIT 37.8 % (37-47); IG% 0.4 %; LYMPH % 12.9 %; LYMPH ABS # 0.89 K/uL (1.2-3.4); MEAN CELL VOLUME 96.9 fL (80-100); MEAN CORPUSCULAR HEMOGLOBIN 33.6 pg (25-34); MEAN CORPUSCULAR HGB CONC 34.7 g/dl (32-36); MEAN PLATELET VOLUME 10.8 fL (7.4-10.4); MONO % 7.7 %; NEUT % 76.7 %; PLATELET COUNT 120 K/uL (130-400); WHITE BLOOD COUNT 6.89 K/uL (4.8-10.8)
[2017-02-28] MEDS ORDERED: POLY335019 PO (16:43)
[2017-02-28] MEDS ORDERED: LPT40 PO (16:43)
[2017-02-28] MEDS ORDERED: CALC0.2510 PO (16:43)
[2017-02-28] MEDS ORDERED: ATV5X PO (16:43)
[2017-02-28] MEDS ORDERED: CALC1TAB23 PO (16:43)
--- NOTE | 2017-02-28 16:49 | EMERGENCY ROOM VISIT NOTE ---
History Report prepared by Maurisio: Todd Pardo Under the Supervision of: Dr. Guanakito Sanchez D.O. 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 At this time, the patient was sitting in her chair and got up to go to her bedroom. She was walking down her hallway when she suddenly felt weak, miss judged her footing, and fell forward. She did not hit her head or lose consciousness. She experienced one episode of vomiting after the fall. This sudden feeling of weakness has happened to her in the past , 3 times in the past two weeks. Her doctor believes that it is from her blood pressure being low at times. 1 month ago the patient had her Clonidine cut back from 1 pill twice a day to 0.5 pill twice a day. She also receives dialysis on Friday, , Friday. She notes that she does not take her medications on those days. Pt denies headache, change in vision, fevers, chest pain, shortness of breath, nausea, diarrhea, pain with urination, melena, or weakness/ numbness in her extremities. She has a pacemaker/defibrillator in place. She is on Coumadin for a past medical history of atrial fibrillation. 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 A total of 10 systems reviewed and were otherwise negative. 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 (13) Gastroesophageal reflux disease (14) Gram-positive bacteremia (15) Heart failure (16) Hematoma of arm (17) Hypertensive urgency (18) Hypertensive urgency (19) Hypertensive urgency (20) Hysterectomy (21) ICD (22) Left bundle branch block (23) Weakness Family History Diabetes mellitus Heart disease Social History Smoking Status: Never Smoker Alcohol Use: none Drug Use: none Marital Status: Housing Status: lives with family Occupation Status: retired Current/Historical Medications Scheduled Amiodarone HCl (Amiodarone HCl), 200 MG PO DAILY Aspirin (Aspirin Ec), 81 MG PO QAM Atorvastatin (Atorvastatin Calcium), 40 MG PO DAILY Calcitriol (Rocaltrol Cap), 0.25 MCG PO MWF Calcium Acetate (Phosphate Bin (Calcium Acetate), 1 TAB PO TID Carvedilol (Coreg), 50 MG PO BIDM Cephalexin Monohydrate (Keflex), 500 MG PO TID Cholecalciferol (Vitamin D3), 2,000 INTER.UNIT PO QAM Clonidine Hcl (Catapres), 0.1 MG PO BID Cyanocobalamin (Vitamin B12), 1,000 MCG PO QAM Escitalopram Oxalate (Escitalopram Oxalate), 10 MG PO QAM Hydralazine HCl (Hydralazine HCl), 100 MG PO Q8 Insulin Aspart (Novolog Flexpen), 1 DOSE SC TIDM Insulin Glargine (Lantus Solostar), 24 UNITS SQ HS Multiple Vitamins W/ Minerals (Womens Multi Vitamin & Mi), 1 TAB PO DAILY Polyethylene Glycol 3350 (Miralax), 17 GM PO BID Probiotic Product (Probiotic), 1 TAB PO QAM Pyridoxine (Vitamin B6), 100 MG PO DAILY Ranitidine HCl (Ranitidine HCl), 150 MG PO BID Torsemide (Torsemide), 10 MG PO QAM Warfarin Sodium (Warfarin Sodium), 4 MG PO 5XWK Warfarin Sodium (Warfarin Sodium), 6 MG PO 2XWK Scheduled PRN Acetaminophen (Tylenol), 500 MG PO UD PRN for Pain or Fever Loratadine (Claritin), 10 MG PO QAM PRN for Allergy Symptoms Lorazepam (Lorazepam), 0.5 MG PO TID PRN for Anxiety Allergies Coded Allergies: Diphenhydramine (Verified Allergy, Mild, VERY WEAK, CHF, 07/29/16) Sulfa Antibiotics (Verified Allergy, Mild, "KNOCKS ME OUT", 07/29/16) Adhesives (Verified Allergy, Unknown, RXN TO ADHESIVE ON NITRO PATCH, 07/29) Pettus (Verified Allergy, Unknown, UNKNOWN, 07/29/16) DESIREE Inhibitors (Verified Adverse Reaction, Mild, COUGH, 07/29/16) CAUSES COUGH Lisinopril (Verified Adverse Reaction, Mild, COUGH, 07/29/16) Nitroglycerin (Verified Adverse Reaction, Mild, HEADACHE/NAUSEA, 07/29/16) Amlodipine (Verified Adverse Reaction, Unknown, RETAIN FLUID , 07/29/16) Physical Exam Vital Signs Date Time Temp Pulse Resp B/P (MAP) Pulse Ox O2 Delivery O2 Flow Rate FiO2 02/28/17 20:00 207/95 02/28/17 19:59 195/82 02/28/17 19:55 60 12 97 02/28/17 19:40 60 17 98 02/28/17 19:30 202/80 02/28/17 19:27 194/81 02/28/17 19:25 60 16 99 02/28/17 19:10 61 12 98 02/28/17 19:09 60 97 02/28/17 19:05 207/83 02/28/17 18:22 60 20 184/81 100 Room Air 02/28/17 17:13 60 20 138/74 99 02/28/17 16:26 60 166/72 70 130/65 60 132/85 02/28/17 16:16 Room Air 02/28/17 15:53 36.6 60 12 108/84 99 Room Air Physical Exam GENERAL: alert, well appearing, well nourished, no distress, non-toxic, sitting up in bed HEAD: normal cephalic, old contusion to the right forehead. EYE EXAM: normal conjunctiva, PERRL and EOM's grossly intact OROPHARYNX: no exudate, no erythema, lips, buccal mucosa, and tongue normal and mucous membranes are moist EARS: TMs clear b/l NECK: supple, no nuchal rigidity, no adenopathy, non-tender CHEST: stable to compression anteriorly and posteriorly, central line in left chest wall with pacemaker in place. LUNGS: clear to auscultation. Normal chest wall mechanics HEART: no murmurs, S1 normal and S2 normal ABDOMEN: abdomen soft, non-tender, normo-active bowel sounds, no masses, no rebound or guarding. PELVIS: stable to compression anteriorly and posteriorly BACK: Back is symmetrical on inspection and there is no deformity, no midline tenderness, no CVA tenderness. UPPER EXTREMITIES: full active and passive range of motion of all joints without tenderness to palpation LOWER EXTREMITIES: full active and passive range of motion of all joints without tenderness to palpation NEURO EXAM: Normal sensorium, cranial nerves II-XII intact, normal speech, no weakness of arms, no weakness of legs. GCS: 15. No pronator drift. Finger to nose intact. Medical Decision & Procedures ER Provider Diagnostic Interpretation: Radiology results as stated below per my review and the radiologist's interpretation: HEAD WITHOUT CONTRAST (CT) CLINICAL HISTORY: 71 years-old Female presenting with fall, neck pain . TECHNIQUE: Multidetector CT imaging of the head was performed without the use of intravenous contrast. IV contrast: None. A dose lowering technique was used consistent with the principles of ALARA (as low as reasonably achievable). COMPARISON: 12/24/2016. CT DOSE (mGy.cm): The estimated cumulative dose is 911.89 mGy.cm. FINDINGS: [employer] topogram: Unremarkable. Ventricles and sulci normal in size. Periventricular and subcortical white matter hypoattenuation similar to prior exam, nonspecific but likely chronic small vessel ischemic change. Basal ganglia calcification noted. Calcification in the cerebellar folia also noted. No mass effect or midline shift. No hemorrhage or acute territorial infarct. No extra-axial fluid collection. Paranasal sinuses and mastoid air cells clear. Interval resolution of right frontal contusion and subgaleal hematoma. Likely surgical material noted at the lateral aspect of the globes bilaterally. Calvarium intact. IMPRESSION: 1. No acute intracranial pathology. Electronically signed by: Enrrique Davies M.D. 02/28/2017 4:52 PM Dictated Date/Time: 02/28/2017 4:49 PM SINGLE VIEW CHEST CLINICAL HISTORY: Generalized weakness. FINDINGS: An AP, portable, upright chest radiograph is compared to study dated 12/24/2016. The examination is degraded by portable technique and patient rotation. A left subclavian central venous catheter is unchanged in position, as is a 3-lead cardiac AICD which largely obscures the left upper chest. The heart is enlarged and there is atherosclerotic calcification of the thoracic aorta. The pulmonary vascular is noncongested. Chronic interstitial thickening is similar to previous. Linear atelectasis versus scarring is seen in the left lower lung. No airspace consolidation, large pleural effusion, or pneumothorax is seen. The skeletal structures are osteopenic. The bony thorax is grossly intact. IMPRESSION: 1. Cardiomegaly and AICD. There is no radiographic evidence of congestive failure. 2. There is no airspace consolidation or large pleural effusion. Electronically signed by: Colten Jacinto M.D. 02/28/2017 4:35 PM Dictated Date/Time: 02/28/2017 4:[address] SCAN OF THE CERVICAL SPINE CLINICAL HISTORY: Fall. Neck pain. COMPARISON STUDY: CT scan of the cervical spine dated 07/29/2016. TECHNIQUE: CT scan of the cervical spine is performed from the skull base to the upper thoracic spine. Images are reviewed in the axial, sagittal, and coronal planes. IV contrast was not administered for this examination. A dose lowering technique was utilized adhering to the principles of ALARA. FINDINGS: Skeletal structures: The skeletal structures are osteopenic. There is no evidence of fracture or subluxation involving the cervical spine. Vertebral body height and alignment are maintained. The odontoid process and lateral masses are intact. The atlantoaxial articulation is preserved noting productive degenerative change. The spinous processes appear intact. Large anterior osteophytes are seen throughout. A bone island is incidentally noted in the spinous process of T1. There is moderate to advanced multilevel cervical spondylosis. Uncovertebral and facet arthropathy contribute to neural foraminal narrowing at most levels. Intervertebral discs: There is advanced disc space narrowing seen at C6-C7. Mild to moderate disc space narrowing is seen at the remaining cervical levels. Central canal: Large posterior disc osteophyte complexes at C2-C3, C3-C4, and C6-C7 likely contribute to acquired compromise of the central canal. Soft tissues: The prevertebral and paraspinous soft tissues are within normal limits. There is atherosclerotic calcification of the carotid bulbs. Pacemaker leads and a central venous catheter are partially imaged in the left axillary region. Subcentimeter nodules are noted in the left thyroid lobe. Calvarium: The visualized calvarium at the skull base appears intact. Brain parenchyma: Partially visualized brain parenchyma the skull base is within normal limits. Sinuses and mastoids: The visualized paranasal sinuses are clear. There is a large right mastoid effusion. The left mastoid air cells are well pneumatized. Lung apices: Clear as visualized. IMPRESSION: 1. There is no evidence of fracture or subluxation involving the cervical spine. 2. Osteopenia and spondylotic change as above. 3. Right mastoid effusion. Electronically signed by: Colten Jacinto M.D. 02/28/2017 4:55 PM Dictated Date/Time: 02/28/2017 4:51 PM Laboratory Results 02/28/17 16:26 Red Blood Count 3.90, Mean Corpuscular Volume 96.9, Mean Corpuscular Hemoglobin 33.6, Mean Corpuscular Hemoglobin Concent 34.7, Mean Platelet Volume 10.8, Neutrophils (%) (Auto) 76.7, Lymphocytes (%) (Auto) 12.9, Monocytes (%) (Auto) 7.7, Eosinophils (%) (Auto) 1.9, Basophils (%) (Auto) 0.4, Neutrophils # (Auto) 5.28, Lymphocytes # (Auto) 0.89, Monocytes # (Auto) 0.53, Eosinophils # (Auto) 0.13, Basophils # (Auto) 0.03 02/28/17 16:26 Test 02/28/17 16:15 02/28/17 16:26 02/28/17 17:20 02/28/17 18:31 Bedside Glucose 125 mg/dl (70-90) White Blood Count 6.89 K/uL (4.8-10.8) Red Blood Count 3.90 M/uL (4.2-5.4) Hemoglobin 13.1 g/dL (12.0-16.0) Hematocrit 37.8 % (37-47) Mean Corpuscular Volume 96.9 fL (80-100) Mean Corpuscular Hemoglobin 33.6 pg (25-34) Mean Corpuscular Hemoglobin Concent 34.7 g/dl (32-36) Platelet Count 120 K/uL (130-400) Mean Platelet Volume 10.8 fL (7.4-10.4) Neutrophils (%) (Auto) 76.7 % Lymphocytes (%) (Auto) 12.9 % Monocytes (%) (Auto) 7.7 % Eosinophils (%) (Auto) 1.9 % Basophils (%) (Auto) 0.4 % Neutrophils # (Auto) 5.28 K/uL (1.4-6.5) Lymphocytes # (Auto) 0.89 K/uL (1.2-3.4) Monocytes # (Auto) 0.53 K/uL (0.11-0.59) Eosinophils # (Auto) 0.13 K/uL (0-0.5) Basophils # (Auto) 0.03 K/uL (0-0.2) RDW Standard Deviation 50.1 fL (36.4-46.3) RDW Coefficient of Variation 14.3 % (11.5-14.5) Immature Granulocyte % (Auto) 0.4 % Immature Granulocyte # (Auto) 0.03 K/uL (0.00-0.02) Prothrombin Time 26.5 SECONDS (9.0-12.0) Prothromb Time International Ratio 2.4 (0.9-1.1) Anion Gap 4.0 mmol/L (3-11) Estimated GFR () 16.1 Estimated GFR (Non- 13.9 BUN/Creatinine Ratio 13.0 (10-20) Calcium Level 9.4 mg/dl (8.5-10.1) Total Bilirubin 0.7 mg/dl (0.2-1) Direct Bilirubin mg/dl (0-0.2) Aspartate Amino Transf (AST/SGOT) 27 U/L (15-37) Alanine Aminotransferase (ALT/SGPT) 31 U/L (12-78) Alkaline Phosphatase 128 U/L (45-117) Total Protein 7.8 gm/dl (6.4-8.2) Albumin 3.9 gm/dl (3.4-5.0) Thyroid Stimulating Hormone (TSH) 1.360 uIu/ml (0.300-4.500) Chemistry Specimen Hemolysis Urine Color YELLOW Urine Appearance CLOUDY (CLEAR) Urine pH 6.0 (4.5-7.5) Urine Specific [place] 1.016 (1.000-1.030) Urine Protein 3+ (NEG) Urine Glucose (UA) TRACE (NEG) Urine Ketones NEG (NEG) Urine Occult Blood TRACE (NEG) Urine Nitrite NEG (NEG) Urine Bilirubin NEG (NEG) Urine Urobilinogen NEG (NEG) Urine Leukocyte Esterase MODERATE (NEG) Urine WBC (Auto) >30 /hpf (0-5) Urine RBC (Auto) 0-4 /hpf (0-4) Urine Hyaline Casts (Auto) 5-10 /lpf (0-5) Urine Epithelial Cells (Auto) >30 /lpf (0-5) Urine Bacteria (Auto) NEG (NEG) Troponin I < 0.015 ng/ml (0-0.045) Laboratory results per my review. Medications Administered Medications (Trade) Dose Ordered Sig/Rayna Route Start Time Stop Time Status Last Admin Dose Admin Clonidine HCl (Catapres Tab) 0.1 mg NOW ONCE PO 02/28/17 19:30 02/28/17 19:31 DC 02/28/17 19:54 0.1 MG Carvedilol (Coreg Tab) 50 mg NOW ONCE PO 02/28/17 19:30 02/28/17 19:31 DC 02/28/17 19:55 50 MG Cephalexin Monohydrate (Keflex Cap) 500 mg NOW ONCE PO 02/28/17 19:45 02/28/17 19:46 DC 02/28/17 19:57 500 MG ECG Indication: weakness Rate (beats per minute): 60 Rhythm: other (AV paced) Findings: LBBB, left axis deviation Comparison ECG Date: 24 December 2016 Change: no significant change ED Course ED COURSE: Vital signs were reviewed and showed normal vitals. The patients medical record was reviewed The above diagnostic studies were performed and reviewed. ED treatments and interventions as stated above. 1550: The patient was evaluated in room A11B. A complete history and physical examination was performed. 1620: I reevaluated the patient at this time. We will do orthostatic testing. I also told her that her pacemaker is from [employer]. She has no complaints at this time. 1710: [employer] analyzed the pacemaker and said she has no abnormal rhythms. 1738: She is feeling better at this time. 1929: She did not take her night time medications. At this time, I also spoke with Dr. Campos of Cardiology. We discussed the patient's case. He agrees that the patient can be discharged and follow up with him in the near future. 1930: Ordered Coreg Tab 50 mg PO, Catapres Tab 0.1 mg PO 5: Ordered Keflex Cap 500 mg PO 1999: Upon reevaluation, the patient is resting. I discussed my findings with the patient and she understands and agrees with the treatment plan. Based on the patients age, coexisting illnesses, exam and lab findings the decision to treat as an outpatient was made. The patient remained stable while under my care. The patient appeared well at the time of discharge. Medical Decision Differential Diagnosis includes but is not limited to dehydration, stroke, anemia, hypoglycemia, hyponatremia, hypernatremia, urinary tract infection, pneumonia, bronchitis, sepsis, gastroenteritis, additional abdominal pathology, metabolic abnormalities and infections. Patient is a 71-year-old female who presents the ER following feeling very weak and tripping on the walkway. Patient was brought in by EMS. She feels completely back to baseline. Patient has no other complaints at this time. She has a history of nonischemic cardiomyopathy with previous cath last in 2005 per report was unremarkable, clots on long-term warfarin, diabetes and dialysis dependent on Friday, , Friday. Patient currently feels at her baseline. Vitals were unremarkable. She is in fact hypertensive on the ER and believe this is secondary to her not taking her p.m. medications which she was given. She has no other complaints. EKG unremarkable. Troponins were negative 2. INR was therapeutic and consequently I did not obtain a d-dimer. Creatinine was around her baseline at 3.2. UA did suggest a possible UTI and since she does urinate about 3 times a day did feel is reasonable to treat her for this with Keflex. Recommended checking INR in 4 days with antibiotics. Interrogation of pacemaker shows no abnormal events. It did show that her heart rate never goes above 70 and question if she needs a rate responsive this could be the reason why she feels very weak when moving. I discussed the case with cardiology and they agree with follow-up as an outpatient. Discussed with Pt concerning signs and symptoms to watch out for. Pt was instructed to follow up with their PCP and discussed with the patient their option to return to the ED at anytime for persistent or worsening symptoms. The appropriate anticipatory guidance and out-patient management, including indications for return to the emergency department, were explained at length to the patient and understood. Head Trauma GCS Score: 15 Medication Reconcilliation Current Medication List: was personally reviewed by me Blood Pressure Screening Patient's blood pressure: Normal blood pressure Blood pressure disposition: Did not require urgent referral Consults Time Called: 1924 Consulting Physician: Dr. Campos - Cardiology Returned Call: 1928 We discussed the patient's case. He agrees that the patient can be discharged and follow up with him in the near future. Impression Primary Impression: Fall Additional Impressions: Weakness CKD (chronic kidney disease) UTI (urinary tract infection) Scribe Attestation The scribe's documentation has been prepared under my direction and personally reviewed by me in its entirety. I confirm that the note above accurately reflects all work, treatment, procedures, and medical decision making performed by me. Departure Information Dispostion Home / Self-Care Prescriptions Cephalexin Monohydrate (Keflex) 500 Mg Cap 500 MG PO TID for 7 Days, CAP Prov: Guanakito Sanchez, DO 02/28/17 Referrals Luh Hargrove M.D. (PCP) Forms HOME CARE DOCUMENTATION FORM, IMPORTANT VISIT INFORMATION Patient Instructions ED HTN Established, ED Weakness [facility], My [facility] Additional Instructions Please follow up with your primary care doctor with in the next 24 hours. Any worsening of your symptoms, please return to the ED immediately. This includes any fevers greater than 100.4, worsening pain, chest pain, shortness breath, persistent nausea, vomiting, unable to eat or drink, or any other concerning signs or symptoms from your standpoint. You were found to have a blood pressure greater than 120 systolic over 90 diastolic. Due to the new Medicare guidelines, we are now recommending that you follow up with your primary care doctor in regards to this elevated blood pressure. Problem Qualifiers Primary Impression: Fall Encounter type: initial encounter Qualified Codes: W19.XXXA - Unspecified fall, initial encounter Additional Impressions: CKD (chronic kidney disease) Chronic kidney disease stage: on chronic dialysis Qualified Codes: N18.6 - End stage renal disease; Z99.2 - Dependence on renal dialysis UTI (urinary tract infection) Urinary tract infection type: acute cystitis Hematuria presence: with hematuria Qualified Codes: N30.01 - Acute cystitis with hematuria
--- NOTE | 2017-02-28 16:53 | DIAGNOSTIC IMAGING REPORT ---
HEAD WITHOUT CONTRAST (CT) CLINICAL HISTORY: 71 years-old Female presenting with fall, neck pain . TECHNIQUE: Multidetector CT imaging of the head was performed without the use of intravenous contrast. IV contrast: None. A dose lowering technique was used consistent with the principles of ALARA (as low as reasonably achievable). COMPARISON: 12/24/2016. CT DOSE (mGy.cm): The estimated cumulative dose is 911.89 mGy.cm. FINDINGS: [employer] Benefits [employer] topogram: Unremarkable. Ventricles and sulci normal in size. Periventricular and subcortical white matter hypoattenuation similar to prior exam, nonspecific but likely chronic small vessel ischemic change. Basal ganglia calcification noted. Calcification in the cerebellar folia also noted. No mass effect or midline shift. No hemorrhage or acute territorial infarct. No extra-axial fluid collection. Paranasal sinuses and mastoid air cells clear. Interval resolution of right frontal contusion and subgaleal hematoma. Likely surgical material noted at the lateral aspect of the globes bilaterally. Calvarium intact. IMPRESSION: 1. No acute intracranial pathology. Electronically signed by: Enrrique Davies M.D. 02/28/2017 4:52 PM Dictated Date/Time: 02/28/2017 4:49 PM
[2017-02-28 16:54] LABS: INR 2.4 (0.9-1.1); PROTHROMBIN TIME (PATIENT) 26.5 SECONDS (9.0-12.0)
--- NOTE | 2017-02-28 16:57 | DIAGNOSTIC IMAGING REPORT ---
CT SCAN OF THE CERVICAL SPINE CLINICAL HISTORY: Fall. Neck pain. COMPARISON STUDY: CT scan of the cervical spine dated 07/29/2016. TECHNIQUE: CT scan of the cervical spine is performed from the skull base to the upper thoracic spine. Images are reviewed in the axial, sagittal, and coronal planes. IV contrast was not administered for this examination. A dose lowering technique was utilized adhering to the principles of ALARA. FINDINGS: Skeletal structures: The skeletal structures are osteopenic. There is no evidence of fracture or subluxation involving the cervical spine. Vertebral body height and alignment are maintained. The odontoid process and lateral masses are intact. The atlantoaxial articulation is preserved noting productive degenerative change. The spinous processes appear intact. Large anterior osteophytes are seen throughout. A bone island is incidentally noted in the spinous process of T1. There is moderate to advanced multilevel cervical spondylosis. Uncovertebral and facet arthropathy contribute to neural foraminal narrowing at most levels. Intervertebral discs: There is advanced disc space narrowing seen at C6-C7. Mild to moderate disc space narrowing is seen at the remaining cervical levels. Central canal: Large posterior disc osteophyte complexes at C2-C3, C3-C4, and C6-C7 likely contribute to acquired compromise of the central canal. Soft tissues: The prevertebral and paraspinous soft tissues are within normal limits. There is atherosclerotic calcification of the carotid bulbs. Pacemaker leads and a central venous catheter are partially imaged in the left axillary region. Subcentimeter nodules are noted in the left thyroid lobe. Calvarium: The visualized calvarium at the skull base appears intact. Brain parenchyma: Partially visualized brain parenchyma the skull base is within normal limits. Sinuses and mastoids: The visualized paranasal sinuses are clear. There is a large right mastoid effusion. The left mastoid air cells are well pneumatized. Lung apices: Clear as visualized. IMPRESSION: 1. There is no evidence of fracture or subluxation involving the cervical spine. 2. Osteopenia and spondylotic change as above. 3. Right mastoid effusion. Electronically signed by: Colten Jacinto M.D. 02/28/2017 4:55 PM Dictated Date/Time: 02/28/2017 4:51 PM
[2017-02-28] MEDS ORDERED: PROB1TAB16 PO (17:00)
[2017-02-28 17:30] LABS: ALKALINE PHOSPHATASE 128 U/L (45-117); ALT/SGPT 31 U/L (12-78); AST/SGOT 27 U/L (15-37); BLOOD UREA NITROGEN 42 mg/dl (7-18); CALCIUM 9.4 mg/dl (8.5-10.1); CARBON DIOXIDE 31 mmol/L (21-32); CHLORIDE 102 mmol/L (98-107); GLUCOSE 120 mg/dl (70-99); POTASSIUM 4.2 mmol/L (3.5-5.1); SODIUM 137 mmol/L (136-145)
[2017-02-28 18:08] LABS: URINE APPEARANCE CLOUDY (CLEAR); URINE BILIRUBIN NEG (NEG); URINE COLOR YELLOW; URINE EPITHELIAL CELL AUTO >30 /lpf (0-5); URINE NITRITE NEG (NEG); URINE SPECIFIC GRAVITY 1.016 (1.000-1.030); UROBILINOGEN NEG (NEG)
[2017-02-28 18:11] LABS: MANUAL MICROSCOPIC REQUIRED? NO; REVIEW REQ? NO
[2017-02-28] MEDS ORDERED: ASPI81TA28 PO (19:04)
[2017-02-28] MEDS ORDERED: CLONIDINE HCL 0.1 MG TAB PO ONE (19:30)
[2017-02-28] MEDS ORDERED: CARVEDILOL 25 MG TAB PO ONE (19:30)
[2017-02-28] MEDS ORDERED: CEPH500C PO (19:41)
[2017-02-28] MEDS ORDERED: CEPHALEXIN MONOHYDRATE 250 MG CAP PO ONE (19:45)
[2017-02-28 19:55] VITALS: PULSE 60; O2SAT 97
[2017-02-28 20:00] VITALS: BP 207/95
[2017-02-28] MEDS ORDERED: LORA10TA5 PO (20:12)
[2017-02-28] MEDS ORDERED: NVLGI/PEN SC (22:01)
[2017-02-28] MEDS ORDERED: CTP1CL PO (22:30)
[2017-02-28] MEDS ORDERED: HYDR100T3 PO (22:30)
[2017-02-28] MEDS ORDERED: RANI150T2 PO (22:30)
[2017-02-28] MEDS ORDERED: LXP10 PO (22:30)
[2017-02-28] MEDS ORDERED: CRD200 PO (22:30)
[2017-02-28] MEDS ORDERED: DMD20 PO (22:30)
[2017-02-28] MEDS ORDERED: CARV25TA2 PO (22:30)
[2017-02-28] MEDS ORDERED: MULT-603 PO (22:35)
[2017-02-28] MEDS ORDERED: CYAN100020 PO (22:35)
[2017-02-28] MEDS ORDERED: WARF-283 PO ×2 (22:40)
[2017-02-28] MEDS ORDERED: PYRI100T4 PO (22:42)
[2017-02-28] MEDS ORDERED: ACET-1256 PO (22:42)
== END 2017-02-28 20:05 | disposition home or self-care (01) ==
LOC: EDBD 15:42 → C.EDA 15:43
DX: R29.6 Repeated falls (principal); R53.1 Weakness; N18.6 End stage renal disease; N30.01 Acute cystitis with hematuria; I48.91 Unspecified atrial fibrillation; D64.9 Anemia, unspecified; J30.9 Allergic rhinitis, unspecified; I51.7 Cardiomegaly; F32.9 Major depressive disorder, single episode, unspecified; E11.9 Type 2 diabetes mellitus without complications; E78.5 Hyperlipidemia, unspecified; K21.9 Gastro-esophageal reflux disease without esophagitis; I44.7 Left bundle-branch block, unspecified; Z99.2 Dependence on renal dialysis; Z79.01 Long term (current) use of 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; Z79.82 Long term (current) use of aspirin; Z79.4 Long term (current) use of insulin; Z90.710 Acquired absence of both cervix and uterus; Z95.0 Presence of cardiac pacemaker; Z83.3 Family history of diabetes mellitus

== ENCOUNTER 2017-06-15 14:59 | Inpatient (IN) | payer OTHER ==
[~2017-06-15] VITALS: Ht 160 cm; Wt 71.7 kg
[~2017-06-15 14:59] MED LIST changes: +ACET-1256 PO; +ASPI81TA28 PO; +ATV5X PO; +CALC0.2510 PO; +CALC1TAB23 PO; +CARV25TA2 PO; +CRD200 PO; +CTP1CL PO; +CYAN100020 PO; +DMD20 PO; +HYDR100T3 PO; +LORA10TA6 PO; +LPT40 PO; +LXP10 PO; +MULT-603 PO; +NVLGI/PEN SC; +POLY335019 PO; +PROB1TAB16 PO; +PYRI100T4 PO; +RANI150T2 PO; +WARF-283 PO
[2017-06-15] MEDS ORDERED: FENTANYL CITRATE INJ 50 MCG/1 ML 2 ML VIAL IV ONE ×2 (15:30→17:15)
--- NOTE | 2017-06-15 16:06 | EMERGENCY ROOM VISIT NOTE ---
History Report prepared by Maurisio: Edouard Diaz Under the Supervision of: Dr. Bhargav Mccarthy M.D. First contact with patient: 15:03 Stated Complaint: FALL/ L-HIP PAIN History of Present Illness The patient is a 71 year old white female with a past medical history of MARGOT, anemia, Diabetes, who presents to the ED with a cc of a constant left hip pain starting prior to arrival. She rates her pain as a 10/10 in severity. Positive left hip pain. Negative syncope, chest pain, abdominal pain. The patient states that she went to turn around on her left side when she suddenly fell and landed on her left side. She states that she landed on a carpet, but reports that she hit her head on a chair. The patient admits that she is on Coumadin and her last Coumadin check showed that her blood was too thin. She reports that she also noticed an odor to her urine and blood in her stool recently. The patient states that she is on dialysis, with her last one done yesterday. 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 A total of ten systems were reviewed and were otherwise negative. 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 (13) Gastroesophageal reflux disease (14) Gram-positive bacteremia (15) Heart failure (16) Hematoma of arm (17) Hip fracture, left (18) Hip fracture, left (19) Hypertensive urgency (20) Hypertensive urgency (21) Hypertensive urgency (22) Hysterectomy (23) ICD (24) Left bundle branch block (25) Weakness Family History Diabetes mellitus Heart disease Social History Smoking Status: Never Smoker Alcohol Use: none Drug Use: none Marital Status: Housing Status: lives with family Occupation Status: retired Current/Historical Medications Scheduled Amiodarone HCl (Amiodarone HCl), 200 MG PO QAM Aspirin (Aspirin Ec), 81 MG PO QAM Atorvastatin (Atorvastatin Calcium), 40 MG PO DAILY Calcium Acetate (Phosphate Bin (Calcium Acetate), 1 TAB PO TIDM Carvedilol (Coreg), 50 MG PO BIDM Cholecalciferol (Vitamin D3), 2,000 INTER.UNIT PO QAM Cyanocobalamin (Vitamin B12), 1,000 MCG PO QAM Escitalopram Oxalate (Lexapro), 1 TAB PO DAILY Insulin Aspart (Novolog Flexpen), 1 DOSE SC TIDM Insulin Glargine (Lantus Solostar), 24 UNITS SQ HS Multiple Vitamins W/ Minerals (Womens Multi Vitamin & Mi), 1 TAB PO DAILY Probiotic Product (Probiotic), 1 TAB PO QAM Pyridoxine (Vitamin B6), 100 MG PO DAILY Ranitidine HCl (Ranitidine HCl), 150 MG PO BID Torsemide (Torsemide), 10 MG PO QAM Warfarin Sodium (Warfarin Sodium), 4 MG PO 6XWK Warfarin Sodium (Warfarin Sodium), 6 MG PO WK Scheduled PRN Acetaminophen (Tylenol), 500 MG PO UD PRN for Pain or Fever Loratadine (Claritin), 10 MG PO QAM PRN for Allergy Symptoms Lorazepam (Ativan), 0.5 MG PO TID PRN for Anxiety/Agitation Allergies Coded Allergies: Diphenhydramine (Verified Allergy, Mild, VERY WEAK, CHF, 06/15/17) Sulfa Antibiotics (Verified Allergy, Mild, "KNOCKS ME OUT", 06/15/17) Adhesives (Verified Allergy, Unknown, RXN TO ADHESIVE ON NITRO PATCH, 06/15) [place] (Verified Allergy, Unknown, UNKNOWN, 06/15/17) DESIREE Inhibitors (Verified Adverse Reaction, Mild, COUGH, 06/15/17) CAUSES COUGH Lisinopril (Verified Adverse Reaction, Mild, COUGH, 06/15/17) Nitroglycerin (Verified Adverse Reaction, Mild, HEADACHE/NAUSEA, 06/15/17) Amlodipine (Verified Adverse Reaction, Unknown, RETAIN FLUID , 06/15/17) Physical Exam Vital Signs Date Time Temp Pulse Resp B/P (MAP) Pulse Ox O2 Delivery O2 Flow Rate FiO2 06/15/17 17:00 60 18 163/69 100 Room Air 06/15/17 15:34 63 06/15/17 15:11 36.6 61 20 147/59 100 Room Air Physical Exam GENERAL: Awake, alert, well-appearing, NAD HENT: Normocephalic, atraumatic. EYES: Normal conjunctiva. Sclera non-icteric. NECK: Supple. No nuchal rigidity. FROM. RESPIRATORY: CTAB, no rhonchi, wheezing, crackles CARDIAC: RRR, no MRG CHEST: PermCath on left side. Site looks CDI. ABDOMEN: Soft, NTND, BS+ MSK: No chest wall TTP, no LE edema, significant proximal thigh pain but is NVI distally. SP/DP/tib nerves and DP pulse present. Complains of mild left frontal head pain but no obvious ecchymosis. No midline C spine tenderness. Enlarged left upper extremity. NEURO: GCS 15, CN 2-12 intact, moves all 4s on command SKIN: No rash or jaundice noted. Bruising to the right hand. Prior surgical scars consistent with prior fistulas. Medical Decision & Procedures ER Provider Diagnostic Interpretation: Radiology results as stated below per my review and radiologist interpretation: SINGLE VIEW PELVIS; 2 VIEWS RIGHT FEMUR CLINICAL HISTORY: Fall with left hip pain. FINDINGS: 2 AP pelvic radiographs with AP and crosstable lateral views of the left femur are correlated with pelvic radiograph dated 07/17/2015. The skeletal structures are osteopenic. There is an impacted subcapital fracture of the left femur. The remainder of the left femur appears intact. The bony pelvis and the right hip appear intact. Mild arthritic change and joint space narrowing is seen in the hips. Lumbosacral spondylosis is partially visualized. Soft tissue edema is noted in the left upper thigh. There is a nonobstructed abdominal bowel gas pattern. Pelvic phleboliths are observed. There is atherosclerotic calcification of the left femoral artery. IMPRESSION: 1. Osteopenia with an impacted fracture of the subcapital left femur. 2. The remainder of the left femur appears intact. 3. The bony pelvis and right hip appear preserved. Electronically signed by: Colten Jacinto M.D. 06/15/2017 4:44 PM Dictated Date/Time: 06/15/2017 4:[address] SCAN OF THE BRAIN WITHOUT IV CONTRAST CLINICAL HISTORY: Fall. Anticoagulated patient. COMPARISON STUDY: Prior CT scans of the brain, most recently dated 02/28/2017. TECHNIQUE: Unenhanced axial CT scan of the brain is performed from the vertex to the skull base. FINDINGS: Brain parenchyma: There are age-related involutional changes noting moderate to advanced subcortical and periventricular microangiopathic change. There is no hemorrhage, mass effect, or evidence of acute territorial ischemia by CT criteria. Cutler-white matter is preserved. No extra-axial fluid collection is seen. Mineralization is noted in the basal ganglia. This is similar to previous. Ventricles, sulci, cisterns: Prominent secondary to involutional change. Intracranial vasculature: There is atherosclerotic calcification of the cavernous carotid and vertebral arteries. Calvarium: The skeletal structures are osteopenic. No depressed calvarial fracture is seen. Sinuses and mastoids: The visualized paranasal sinuses are clear. The mastoid air cells are well pneumatized. Orbits: The bony orbits are grossly intact. There are bilateral ocular lens implants. IMPRESSION: Senescent changes as above with no hemorrhage, mass effect, or evidence of acute territorial ischemia by CT criteria. Electronically signed by: Colten Jacinto M.D. 06/15/2017 4:14 PM Dictated Date/Time: 06/15/2017 4:12 PM SINGLE VIEW PELVIS; 2 VIEWS RIGHT FEMUR CLINICAL HISTORY: Fall with left hip pain. FINDINGS: 2 AP pelvic radiographs with AP and crosstable lateral views of the left femur are correlated with pelvic radiograph dated 07/17/2015. The skeletal structures are osteopenic. There is an impacted subcapital fracture of the left femur. The remainder of the left femur appears intact. The bony pelvis and the right hip appear intact. Mild arthritic change and joint space narrowing is seen in the hips. Lumbosacral spondylosis is partially visualized. Soft tissue edema is noted in the left upper thigh. There is a nonobstructed abdominal bowel gas pattern. Pelvic phleboliths are observed. There is atherosclerotic calcification of the left femoral artery. IMPRESSION: 1. Osteopenia with an impacted fracture of the subcapital left femur. 2. The remainder of the left femur appears intact. 3. The bony pelvis and right hip appear preserved. Electronically signed by: Colten Jacinto M.D. 06/15/2017 4:44 PM Dictated Date/Time: 06/15/2017 4:[address] SCAN OF THE CERVICAL SPINE CLINICAL HISTORY: Fall. COMPARISON STUDY: CT scan of the cervical spine dated 02/28/2017. TECHNIQUE: CT scan of the cervical spine is performed from the skull base to the upper thoracic spine. Images are reviewed in the axial, sagittal, and coronal planes. IV contrast was not administered for this examination. A dose lowering technique was utilized adhering to the principles of ALARA. CT DOSE: 976.23 mGy.cm FINDINGS: Skeletal structures: The skeletal structures are osteopenic. There is no evidence of fracture or subluxation involving the cervical spine. Vertebral body height and alignment are maintained. There is straightening of the cervical lordosis. The odontoid process and lateral masses are intact. The atlantoaxial articulation is preserved noting productive degenerative change. The spinous processes appear intact. Large anterior osteophytes are seen throughout. A bone island is incidentally noted in the spinous process of T1. There is moderate to advanced multilevel cervical spondylosis. Uncovertebral and facet arthropathy contribute to neural foraminal narrowing at most levels. Intervertebral discs: There is advanced disc space narrowing seen at C6-C7. Mild to moderate disc space narrowing is seen at the remaining cervical levels. Central canal: Large posterior disc osteophyte complexes at C2-C3, C3-C4, and C6-C7 likely contribute to acquired compromise of the central canal. Soft tissues: The prevertebral and paraspinous soft tissues are within normal limits. There is atherosclerotic calcification of the carotid bulbs. Pacemaker leads and a central venous catheter are partially imaged in the left axillary region. Subcentimeter nodules are noted in the left thyroid lobe. Calvarium: The visualized calvarium at the skull base appears intact. Brain parenchyma: Partially visualized brain parenchyma the skull base is within normal limits. Sinuses and mastoids: The visualized paranasal sinuses are clear. There is a large right mastoid effusion. The left mastoid air cells are well pneumatized. Lung apices: Clear as visualized. IMPRESSION: 1. There is no evidence of fracture or subluxation involving the cervical spine. 2. Osteopenia and spondylotic change as above. 3. Right mastoid effusion. Electronically signed by: Colten Jacinto M.D. 06/15/2017 4:20 PM Dictated Date/Time: 06/15/2017 4:18 PM Laboratory Results 06/15/17 15:45 Red Blood Count 3.20, Mean Corpuscular Volume 98.1, Mean Corpuscular Hemoglobin 33.1, Mean Corpuscular Hemoglobin Concent 33.8, Mean Platelet Volume 11.8, Neutrophils (%) (Auto) 78.9, Lymphocytes (%) (Auto) 10.0, Monocytes (%) (Auto) 9.5, Eosinophils (%) (Auto) 0.8, Basophils (%) (Auto) 0.1, Neutrophils # (Auto) 6.84, Lymphocytes # (Auto) 0.87, Monocytes # (Auto) 0.82, Eosinophils # (Auto) 0.07, Basophils # (Auto) 0.01 06/15/17 15:45 Test 06/15/17 15:05 06/15/17 15:45 White Blood Count 8.67 K/uL (4.8-10.8) Red Blood Count 3.20 M/uL (4.2-5.4) Hemoglobin 10.6 g/dL (12.0-16.0) Hematocrit 31.4 % (37-47) Mean Corpuscular Volume 98.1 fL (80-100) Mean Corpuscular Hemoglobin 33.1 pg (25-34) Mean Corpuscular Hemoglobin Concent 33.8 g/dl (32-36) Platelet Count 99 K/uL (130-400) Mean Platelet Volume 11.8 fL (7.4-10.4) Neutrophils (%) (Auto) 78.9 % Lymphocytes (%) (Auto) 10.0 % Monocytes (%) (Auto) 9.5 % Eosinophils (%) (Auto) 0.8 % Basophils (%) (Auto) 0.1 % Neutrophils # (Auto) 6.84 K/uL (1.4-6.5) Lymphocytes # (Auto) 0.87 K/uL (1.2-3.4) Monocytes # (Auto) 0.82 K/uL (0.11-0.59) Eosinophils # (Auto) 0.07 K/uL (0-0.5) Basophils # (Auto) 0.01 K/uL (0-0.2) RDW Standard Deviation 49.6 fL (36.4-46.3) RDW Coefficient of Variation 13.9 % (11.5-14.5) Immature Granulocyte % (Auto) 0.7 % Immature Granulocyte # (Auto) 0.06 K/uL (0.00-0.02) Dohle Bodies 1+ Platelet Estimate DECREASED Prothrombin Time 30.6 SECONDS (9.0-12.0) Prothromb Time International Ratio 2.7 (0.9-1.1) Activated Partial Thromboplast Time 45.7 SECONDS (21.0-31.0) Partial Thromboplastin Ratio 1.8 Anion Gap 8.0 mmol/L (3-11) Estimated GFR () 11.8 Estimated GFR (Non- 10.2 BUN/Creatinine Ratio 7.5 (10-20) Calcium Level 9.1 mg/dl (8.5-10.1) Magnesium Level 2.1 mg/dl (1.8-2.4) Total Bilirubin 0.8 mg/dl (0.2-1) Direct Bilirubin 0.2 mg/dl (0-0.2) Aspartate Amino Transf (AST/SGOT) 15 U/L (15-37) Alanine Aminotransferase (ALT/SGPT) 24 U/L (12-78) Alkaline Phosphatase 133 U/L (45-117) Total Protein 7.2 gm/dl (6.4-8.2) Albumin 3.6 gm/dl (3.4-5.0) Lipase 134 U/L (73-393) Beta-Hydroxybutyric Acid 0.76 mg/dL (0.2-2.81) Laboratory results reviewed by me Medications Administered Medications (Trade) Dose Ordered Sig/Rayna Route Start Time Stop Time Status Last Admin Dose Admin Fentanyl Citrate (Fentanyl Inj) 25 mcg NOW ONCE IV 06/15/17 15:30 06/15/17 15:31 DC 06/15/17 15:47 25 MCG ECG Indication: other (fall) Rate (beats per minute): 60 Rhythm: other (AV dual paced rhythm) Findings: LBBB, Q waves (inferior, anterior, lateral), other (Wide WRS, Prolong QTC) ED Course 1509: The patient was evaluated in room B11A. A complete history and physical exam was performed. 1707: I discussed the patient's case with Dr. Ricketts, [facility] Hospitalist. She understands the patient's condition and agrees to accept the patient. The patient will be further evaluated. 1720: I discussed the patient's case with Dr. Mars, [facility] Orthoped[facility]. He agrees with the plan. Medical Decision Triage Nursing notes reviewed. The patient is a 71 year old white female with a past medical history of MARGOT, anemia, Diabetes, ESRD T/Th/Sa last HD Sa (yesterday) for full length of time ( 3.5 hrs) who presents to the ED with a cc of a constant left hip pain starting prior to arrival. The patient's presentation and history were concerning for fracture, strain, sprain, dislocation, coagulopathy, ICH, and UTI. Patient was seen and evaluated the bedside. Patient does have a lengthy medical history and does take Coumadin for A. fib. Of note the patient had a mechanical fall earlier today. Patient states that she turned felt to her left side and had pain in the left hip. Patient also states that she did strike the left forehead. Patient denies any numbness, tingling, or weakness. Patient is a and O 3 although somewhat hard of hearing. Patient has a GCS of 15 and follows commands properly. Patient's left lower extremity is a limited second to pain but is otherwise neurovascularly intact. Patient did have blood work that was completed along with a urinalysis and CTs of the head and neck and plain films of the left lower extremity and a plain pelvis. Patient CTs of the head and neck were negative acute. Patient urinalysis negative for infection. Patient Coumadin 2.7. Patient does have noted pseudohyponatremia secondary to elevated glucose. I did speak with the hospitalist who agreed to admit and further evaluate the patient. Also discuss case with the orthopedist stated that she may be able to be operatively fixated tomorrow pending medical clearance. Medication Reconcilliation Current Medication List: was personally reviewed by me Blood Pressure Screening Patient's blood pressure: Elevated blood pressure Blood pressure disposition: Referred to PCP Consults Time Called: 1707 Consulting Physician: Viviane Herrmann Hospitalist Returned Call: 1707 I discussed the patient's case with Viviane Herrmann Hospitalist. She understands the patient's condition and agrees to accept the patient. The patient will be further evaluated. Additional Consults: Time Called: 1720 Consulted Physician: Dr. Mars, [facility] Returned Call: 1720 Additional Comments: I discussed the patient's case with Dr. Mars, [facility]. He agrees with the plan. Impression Primary Impression: Hip fracture, left Additional Impressions: Fall Hyperglycemia Anticoagulated on Coumadin Scribe Attestation The scribe's documentation has been prepared under my direction and personally reviewed by me in its entirety. I confirm that the note above accurately reflects all work, treatment, procedures, and medical decision making performed by me. Departure Information Dispostion Being Evaluated By Hospitalist Referrals Luh Hargrove M.D. (PCP) Problem Qualifiers Primary Impression: Hip fracture, left Encounter type: initial encounter Fracture type: closed Qualified Codes: S72.002A - Fracture of unspecified part of neck of left femur, initial encounter for closed fracture Additional Impressions: Fall Encounter type: initial encounter Qualified Codes: W19.XXXA - Unspecified fall, initial encounter
--- NOTE | 2017-06-15 16:15 | DIAGNOSTIC IMAGING REPORT ---
CT SCAN OF THE BRAIN WITHOUT IV CONTRAST CLINICAL HISTORY: Fall. Anticoagulated patient. COMPARISON STUDY: Prior CT scans of the brain, most recently dated 02/28/2017. TECHNIQUE: Unenhanced axial CT scan of the brain is performed from the vertex to the skull base. FINDINGS: Brain parenchyma: There are age-related involutional changes noting moderate to advanced subcortical and periventricular microangiopathic change. There is no hemorrhage, mass effect, or evidence of acute territorial ischemia by CT criteria. Cutler-white matter is preserved. No extra-axial fluid collection is seen. Mineralization is noted in the basal ganglia. This is similar to previous. Ventricles, sulci, cisterns: Prominent secondary to involutional change. Intracranial vasculature: There is atherosclerotic calcification of the cavernous carotid and vertebral arteries. Calvarium: The skeletal structures are osteopenic. No depressed calvarial fracture is seen. Sinuses and mastoids: The visualized paranasal sinuses are clear. The mastoid air cells are well pneumatized. Orbits: The bony orbits are grossly intact. There are bilateral ocular lens implants. IMPRESSION: Senescent changes as above with no hemorrhage, mass effect, or evidence of acute territorial ischemia by CT criteria. Electronically signed by: Colten Jacinto M.D. 06/15/2017 4:14 PM Dictated Date/Time: 06/15/2017 4:12 PM
--- NOTE | 2017-06-15 16:21 | DIAGNOSTIC IMAGING REPORT ---
CT SCAN OF THE CERVICAL SPINE CLINICAL HISTORY: Fall. COMPARISON STUDY: CT scan of the cervical spine dated 02/28/2017. TECHNIQUE: CT scan of the cervical spine is performed from the skull base to the upper thoracic spine. Images are reviewed in the axial, sagittal, and coronal planes. IV contrast was not administered for this examination. A dose lowering technique was utilized adhering to the principles of ALARA. CT DOSE: 976.23 mGy.cm FINDINGS: Skeletal structures: The skeletal structures are osteopenic. There is no evidence of fracture or subluxation involving the cervical spine. Vertebral body height and alignment are maintained. There is straightening of the cervical lordosis. The odontoid process and lateral masses are intact. The atlantoaxial articulation is preserved noting productive degenerative change. The spinous processes appear intact. Large anterior osteophytes are seen throughout. A bone island is incidentally noted in the spinous process of T1. There is moderate to advanced multilevel cervical spondylosis. Uncovertebral and facet arthropathy contribute to neural foraminal narrowing at most levels. Intervertebral discs: There is advanced disc space narrowing seen at C6-C7. Mild to moderate disc space narrowing is seen at the remaining cervical levels. Central canal: Large posterior disc osteophyte complexes at C2-C3, C3-C4, and C6-C7 likely contribute to acquired compromise of the central canal. Soft tissues: The prevertebral and paraspinous soft tissues are within normal limits. There is atherosclerotic calcification of the carotid bulbs. Pacemaker leads and a central venous catheter are partially imaged in the left axillary region. Subcentimeter nodules are noted in the left thyroid lobe. Calvarium: The visualized calvarium at the skull base appears intact. Brain parenchyma: Partially visualized brain parenchyma the skull base is within normal limits. Sinuses and mastoids: The visualized paranasal sinuses are clear. There is a large right mastoid effusion. The left mastoid air cells are well pneumatized. Lung apices: Clear as visualized. IMPRESSION: 1. There is no evidence of fracture or subluxation involving the cervical spine. 2. Osteopenia and spondylotic change as above. 3. Right mastoid effusion. Electronically signed by: Colten Jacinto M.D. 06/15/2017 4:20 PM Dictated Date/Time: 06/15/2017 4:18 PM
[2017-06-15 16:25] LABS: ALKALINE PHOSPHATASE 133 U/L (45-117); ALT/SGPT 24 U/L (12-78); AST/SGOT 15 U/L (15-37); BLOOD UREA NITROGEN 31 mg/dl (7-18); BUN/CREATININE RATIO 7.5 (10-20); CALCIUM 9.1 mg/dl (8.5-10.1); CARBON DIOXIDE 29 mmol/L (21-32); CHLORIDE 92 mmol/L (98-107); CREATININE 4.13 mg/dl (0.60-1.20); MAGNESIUM 2.1 mg/dl (1.8-2.4); POTASSIUM 3.9 mmol/L (3.5-5.1); SODIUM 129 mmol/L (136-145)
[2017-06-15 16:26] LABS: GLUCOSE 433 mg/dl (70-99); HEMATOCRIT 31.4 % (37-47); MEAN CELL VOLUME 98.1 fL (80-100); MEAN CORPUSCULAR HEMOGLOBIN 33.1 pg (25-34); MEAN CORPUSCULAR HGB CONC 33.8 g/dl (32-36); WHITE BLOOD COUNT 8.67 K/uL (4.8-10.8)
[2017-06-15 16:34] LABS: BASO % 0.1 %; BASO ABS # 0.01 K/uL (0-0.2); COMPLETE YES; DOHLE BODIES 1+; EOS % 0.8 %; IG% 0.7 %; INR 2.7 (0.9-1.1); LYMPH ABS # 0.87 K/uL (1.2-3.4); MEAN PLATELET VOLUME 11.8 fL (7.4-10.4); MONO % 9.5 %; NEUT % 78.9 %; PARTIAL THROMBOPLASTIN RATIO 1.8; PLATELET COUNT 99 K/uL (130-400); PLT ESTIMATE DECREASED; PROTHROMBIN TIME (PATIENT) 30.6 SECONDS (9.0-12.0)
[2017-06-15 16:38] LABS: BETA-HYDROXYBUTYRATE 0.76 mg/dL (0.2-2.81)
--- NOTE | 2017-06-15 16:45 | DIAGNOSTIC IMAGING REPORT ---
SINGLE VIEW PELVIS; 2 VIEWS RIGHT FEMUR CLINICAL HISTORY: Fall with left hip pain. FINDINGS: 2 AP pelvic radiographs with AP and crosstable lateral views of the left femur are correlated with pelvic radiograph dated 07/17/2015. The skeletal structures are osteopenic. There is an impacted subcapital fracture of the left femur. The remainder of the left femur appears intact. The bony pelvis and the right hip appear intact. Mild arthritic change and joint space narrowing is seen in the hips. Lumbosacral spondylosis is partially visualized. Soft tissue edema is noted in the left upper thigh. There is a nonobstructed abdominal bowel gas pattern. Pelvic phleboliths are observed. There is atherosclerotic calcification of the left femoral artery. IMPRESSION: 1. Osteopenia with an impacted fracture of the subcapital left femur. 2. The remainder of the left femur appears intact. 3. The bony pelvis and right hip appear preserved. Electronically signed by: Colten Jacinto M.D. 06/15/2017 4:44 PM Dictated Date/Time: 06/15/2017 4:41 PM
[2017-06-15 18:00] VITALS: BP 163/90; PULSE 18; PULSE 61; TEMP 37.4; O2SAT 95; BMI 26.9
[2017-06-15] MEDS ORDERED: SODIUM CHLORIDE 0.9% 1000ML 1,000 ML IV SCH (18:45)
[2017-06-15] MEDS ORDERED: PHARMACY GLYCEMIC MGMT CONSULT PRN (18:56)
[2017-06-15] MEDS ORDERED: SODIUM CHLORIDE 0.9% 500ML 500 ML IV SCH (19:00)
[2017-06-15] MEDS ORDERED: ONDANSETRON INJ 2 MG/ML 2 ML VIAL IV PRN (19:15)
[2017-06-15] MEDS ORDERED: BISACODYL 10 MG SUPP PR PRN (19:15)
[2017-06-15] MEDS ORDERED: POLYETHYLENE (MIRALAX) 17 GM PACK PO PRN (19:15)
[2017-06-15] MEDS ORDERED: DEXTROSE 50% 50 ML SYR IV PRN (19:30)
[2017-06-15] MEDS ORDERED: GLUCOSE 10 TABS/TUBE PO PRN (19:30)
[2017-06-15] MEDS ORDERED: GLUCOSE 40% GEL 15 GM TUBE PO PRN (19:30)
[2017-06-15] MEDS ORDERED: GLUCAGON FOR INJ 1 MG VIAL SQ PRN (19:30)
[2017-06-15] MEDS ORDERED: LORA-741 PO (19:35)
[2017-06-15] MEDS ORDERED: ESCI1TAB18 PO (19:35)
[2017-06-15] MEDS ORDERED: HYDROmorphone INJ 0.5 MG/0.5 ML SYR IV ONE (19:45)
[2017-06-15] MEDS ORDERED: LORATADINE 10 MG TAB PO PRN (19:45)
[2017-06-15] MEDS ORDERED: LORAZEPAM 0.5 MG TAB PO PRN (19:45)
--- NOTE | 2017-06-15 20:06 | History and Physical ---
History & Physical Date & Time of Service: Jun 15, 2017 at 19:37 Chief Complaint: Hip Fracture, Left Primary Care Physician: No Doctor, Assigned History of Present Illness Source: patient, clinic records, hospital records 71 yo diabetic female s/p ICD on hemodialysis presents to the ER with L hip pain after a mechanical fall earlier this evening. She turned quickly to sit on her couch and landed on the floor on her left side instead. Workup in the ER reveals an impacted L subcapital femoral fracture. She reports that at baseline she can ambulate without a cane or walker, and states that she has not had any chest pain or shortness of breath with exertion recently. She is able to wash her dishes and reports that she can climb a flight of stairs without stopping she just has to move sideways. She denies any fevers, chills, cough, congestion, headaches. She reports some dysuria a few days ago and some gross hematuria was noticed by her in the last few days which has seemed to lighten up somewhat. She has suprapubic discomfort on exam. She was noted to have an blood sugar 433 in the ER. She states that she didn't take her insulin last night after coming home from dialysis as she didn't feel well. She then forgot to take it prior to going to [place] this morning and shortly after had the fall so missed her insulin today, too. She reports uncontrolled pain in the hip right now. She denies any numbness or tingling, denies blood in her stool and denies nausea, vomiting or diarrhea. She does report loose stool a few days ago but this was in response to a laxative and has since cleared up. She has a history of atrial fibrillation on coumadin and amiodarone and Coreg. She reports having a blood clot just after delivering her son 50 years ago that was in her leg. She has a h/o idiopathic cardiomyopathy with NYHA Class III systolic CHF s/p Bi-V ICD, h/o pericardial effusion s/p window Mar 2015, vegetation on pacemaker lead seeded from [employer] viridans s/p IV ceftriaxone and oral amoxicillin (post-treatment blood cultures were negative), cardiac cath in January 2006 with normal coronary arteries, h/o of apical LV thrombus, h /o TIA, and h/o MINAL with refusal of CPAP therapy. Past Medical/Surgical History Medical Problems: (1) Anxiety Status: Chronic (2) AV graft malfunction Status: Chronic (3) Biventricular ICD (implantable cardioverter-defibrillator) in place Status: Chronic (4) CHF NYHA class III Status: Chronic (5) Degenerative cervical disc Status: Chronic (6) Depression Status: Chronic (7) Diabetes mellitus type 2 Status: Chronic (8) ESRD (end stage renal disease) on dialysis Status: Chronic (9) Facial palsy Status: Resolved (10) H/O TIA (transient ischemic attack) and stroke Status: Chronic (11) Hyperparathyroidism Status: Chronic (12) Hysterectomy Status: Resolved (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: 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 (14) Pericardial effusion Status: Chronic (15) Proteinuria Status: Chronic (16) PVD (peripheral vascular disease) Status: Chronic (17) Slow transit constipation Status: Chronic Surgical Problems: (1) H/O dilation and curettage Status: Chronic (2) S/P appy Status: Chronic (3) S/P pericardial surgery Status: Chronic Family History Diabetes mellitus Heart disease Social History Smoking Status: Never Smoker Smokeless Tobacco Use: No Alcohol Use: none Drug Use: none Marital Status: Housing status: lives with family Occupational Status: retired Immunizations History of Influenza Vaccine: Yes Influenza Vaccine Date: Apr 08, 2017 History of Tetanus Vaccine?: utd Tetanus Immunization Date: Feb 16, 2008 History of Pneumococcal: Yes Pneumococcal Date: November 23, 2015 History of Hepatitis B Vaccine: No Multi-Drug Resistant Organisms History of MDRO: No Allergies Coded Allergies: Diphenhydramine (Verified Allergy, Mild, VERY WEAK, CHF, 06/15/17) Sulfa Antibiotics (Verified Allergy, Mild, "KNOCKS ME OUT", 06/15/17) Adhesives (Verified Allergy, Unknown, RXN TO ADHESIVE ON NITRO PATCH, 06/15) [place] (Verified Allergy, Unknown, UNKNOWN, 06/15/17) DESIREE Inhibitors (Verified Adverse Reaction, Mild, COUGH, 06/15/17) CAUSES COUGH Lisinopril (Verified Adverse Reaction, Mild, COUGH, 06/15/17) Nitroglycerin (Verified Adverse Reaction, Mild, HEADACHE/NAUSEA, 06/15/17) Amlodipine (Verified Adverse Reaction, Unknown, RETAIN FLUID , 06/15/17) Home Medications Scheduled Amiodarone HCl (Amiodarone HCl), 200 MG PO QAM Aspirin (Aspirin Ec), 81 MG PO QAM Atorvastatin (Atorvastatin Calcium), 40 MG PO DAILY Calcium Acetate (Phosphate Bin (Calcium Acetate), 1 TAB PO TIDM Carvedilol (Coreg), 50 MG PO BIDM Cholecalciferol (Vitamin D3), 2,000 INTER.UNIT PO QAM Cyanocobalamin (Vitamin B12), 1,000 MCG PO QAM Escitalopram Oxalate (Lexapro), 1 TAB PO DAILY Insulin Aspart (Novolog Flexpen), 1 DOSE SC TIDM Insulin Glargine (Lantus Solostar), 24 UNITS SQ HS Multiple Vitamins W/ Minerals (Womens Multi Vitamin & Mi), 1 TAB PO DAILY Probiotic Product (Probiotic), 1 TAB PO QAM Pyridoxine (Vitamin B6), 100 MG PO DAILY Ranitidine HCl (Ranitidine HCl), 150 MG PO BID Torsemide (Torsemide), 10 MG PO QAM Warfarin Sodium (Warfarin Sodium), 4 MG PO [id number] Warfarin Sodium (Warfarin Sodium), 6 MG PO WK Scheduled PRN Acetaminophen (Tylenol), 500 MG PO UD PRN for Pain or Fever Loratadine (Claritin), 10 MG PO QAM PRN for Allergy Symptoms Lorazepam (Ativan), 0.5 MG PO TID PRN for Anxiety/Agitation Review of Systems At least ten systems reviewed and negative except as indicated in HPI. Physical Exam Vital Signs Date Time Temp Pulse Resp B/P (MAP) Pulse Ox O2 Delivery O2 Flow Rate FiO2 06/15/17 17:42 61 18 164/63 100 06/15/17 17:00 60 18 163/69 100 Room Air 06/15/17 15:34 63 06/15/17 15:11 36.6 61 20 147/59 100 Room Air General Appearance: WD/WN, + moderate distress Head: normocephalic, atraumatic Eyes: normal inspection, PERRL, sclerae normal ENT: hearing grossly normal, pharynx normal Neck: supple, no JVD, trachea midline Respiratory/Chest: lungs clear, normal breath sounds, no respiratory distress, no accessory muscle use, + pertinent finding (tunneled catheter in place just above ICD -L anterior chest wall) Cardiovascular: regular rate, rhythm, no edema, no gallop, no JVD, no murmur Abdomen/GI: normal bowel sounds, soft, + tenderness (suprapubic) Back: + pertinent finding (could not be examined 2/2 severe pain with minimal movement. ) Extremities/Musculoskelatal: normal inspection, no pedal edema, + pertinent finding (decreased ROM of lower extremities 2/2 pain from fracture. 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 ) Skin: normal color, warm/dry, no rash Diagnostics Laboratory Results 06/15/17 15:45 Red Blood Count 3.20, Mean Corpuscular Volume 98.1, Mean Corpuscular Hemoglobin 33.1, Mean Corpuscular Hemoglobin Concent 33.8, Mean Platelet Volume 11.8, Neutrophils (%) (Auto) 78.9, Lymphocytes (%) (Auto) 10.0, Monocytes (%) (Auto) 9.5, Eosinophils (%) (Auto) 0.8, Basophils (%) (Auto) 0.1, Neutrophils # (Auto) 6.84, Lymphocytes # (Auto) 0.87, Monocytes # (Auto) 0.82, Eosinophils # (Auto) 0.07, Basophils # (Auto) 0.01 06/15/17 15:45 Test 06/15/17 15:05 06/15/17 15:45 06/15/17 18:18 White Blood Count 8.67 K/uL (4.8-10.8) Red Blood Count 3.20 M/uL (4.2-5.4) Hemoglobin 10.6 g/dL (12.0-16.0) Hematocrit 31.4 % (37-47) Mean Corpuscular Volume 98.1 fL (80-100) Mean Corpuscular Hemoglobin 33.1 pg (25-34) Mean Corpuscular Hemoglobin Concent 33.8 g/dl (32-36) Platelet Count 99 K/uL (130-400) Mean Platelet Volume 11.8 fL (7.4-10.4) Neutrophils (%) (Auto) 78.9 % Lymphocytes (%) (Auto) 10.0 % Monocytes (%) (Auto) 9.5 % Eosinophils (%) (Auto) 0.8 % Basophils (%) (Auto) 0.1 % Neutrophils # (Auto) 6.84 K/uL (1.4-6.5) Lymphocytes # (Auto) 0.87 K/uL (1.2-3.4) Monocytes # (Auto) 0.82 K/uL (0.11-0.59) Eosinophils # (Auto) 0.07 K/uL (0-0.5) Basophils # (Auto) 0.01 K/uL (0-0.2) RDW Standard Deviation 49.6 fL (36.4-46.3) RDW Coefficient of Variation 13.9 % (11.5-14.5) Immature Granulocyte % (Auto) 0.7 % Immature Granulocyte # (Auto) 0.06 K/uL (0.00-0.02) Dohle Bodies 1+ Platelet Estimate DECREASED Prothrombin Time 30.6 SECONDS (9.0-12.0) Prothromb Time International Ratio 2.7 (0.9-1.1) Activated Partial Thromboplast Time 45.7 SECONDS (21.0-31.0) Partial Thromboplastin Ratio 1.8 Anion Gap 8.0 mmol/L (3-11) Estimated GFR () 11.8 Estimated GFR (Non- 10.2 BUN/Creatinine Ratio 7.5 (10-20) Calcium Level 9.1 mg/dl (8.5-10.1) Magnesium Level 2.1 mg/dl (1.8-2.4) Total Bilirubin 0.8 mg/dl (0.2-1) Direct Bilirubin 0.2 mg/dl (0-0.2) Aspartate Amino Transf (AST/SGOT) 15 U/L (15-37) Alanine Aminotransferase (ALT/SGPT) 24 U/L (12-78) Alkaline Phosphatase 133 U/L (45-117) Total Protein 7.2 gm/dl (6.4-8.2) Albumin 3.6 gm/dl (3.4-5.0) Lipase 134 U/L (73-393) Beta-Hydroxybutyric Acid 0.76 mg/dL (0.2-2.81) Bedside Glucose 387 mg/dl (70-90) Results Past 24 Hours Test 06/15/17 15:05 06/15/17 15:45 Range/Units White Blood Count 8.67 4.8-10.8 K/uL Red Blood Count 3.20 4.2-5.4 M/uL Hemoglobin 10.6 12.0-16.0 g/dL Hematocrit 31.4 37-47 % Mean Corpuscular Volume 98.1 80-100 fL Mean Corpuscular Hemoglobin 33.1 25-34 pg Mean Corpuscular Hemoglobin Concent 33.8 32-36 g/dl Platelet Count 99 130-400 K/uL Mean Platelet Volume 11.8 7.4-10.4 fL Neutrophils (%) (Auto) 78.9 % Lymphocytes (%) (Auto) 10.0 % Monocytes (%) (Auto) 9.5 % Eosinophils (%) (Auto) 0.8 % Basophils (%) (Auto) 0.1 % Neutrophils # (Auto) 6.84 1.4-6.5 K/uL Lymphocytes # (Auto) 0.87 1.2-3.4 K/uL Monocytes # (Auto) 0.82 0.11-0.59 K/uL Eosinophils # (Auto) 0.07 0-0.5 K/uL Basophils # (Auto) 0.01 0-0.2 K/uL RDW Standard Deviation 49.6 36.4-46.3 fL RDW Coefficient of Variation 13.9 11.5-14.5 % Immature Granulocyte % (Auto) 0.7 % Immature Granulocyte # (Auto) 0.06 0.00-0.02 K/uL Dohle Bodies 1+ Platelet Estimate DECREASED Prothrombin Time 30.6 9.0-12.0 SECONDS Prothromb Time International Ratio 2.7 0.9-1.1 Activated Partial Thromboplast Time 45.7 21.0-31.0 SECONDS Partial Thromboplastin Ratio 1.8 Sodium Level 129 136-145 mmol/L Potassium Level 3.9 3.5-5.1 mmol/L Chloride Level 92 98-107 mmol/L Carbon Dioxide Level 29 21-32 mmol/L Anion Gap 8.0 3-11 mmol/L Blood Urea Nitrogen 31 7-18 mg/dl Creatinine 4.13 0.60-1.20 mg/dl Estimated GFR () 11.8 Estimated GFR (Non- 10.2 BUN/Creatinine Ratio 7.5 10-20 Random Glucose 433 70-99 mg/dl Calcium Level 9.1 8.5-10.1 mg/dl Magnesium Level 2.1 1.8-2.4 mg/dl Total Bilirubin 0.8 0.2-1 mg/dl Direct Bilirubin 0.2 0-0.2 mg/dl Aspartate Amino Transf (AST/SGOT) 15 15-37 U/L Alanine Aminotransferase (ALT/SGPT) 24 12-78 U/L Alkaline Phosphatase 133 45-117 U/L Total Protein 7.2 6.4-8.2 gm/dl Albumin 3.6 3.4-5.0 gm/dl Lipase 134 73-393 U/L Beta-Hydroxybutyric Acid 0.76 0.2-2.81 mg/dL Diagnostic Radiology CT SCAN OF THE CERVICAL SPINE CLINICAL HISTORY: Fall. COMPARISON STUDY: CT scan of the cervical spine dated 02/28/2017. TECHNIQUE: CT scan of the cervical spine is performed from the skull base to the upper thoracic spine. Images are reviewed in the axial, sagittal, and coronal planes. IV contrast was not administered for this examination. A dose lowering technique was utilized adhering to the principles of ALARA. CT DOSE: 976.23 mGy.cm FINDINGS: Skeletal structures: The skeletal structures are osteopenic. There is no evidence of fracture or subluxation involving the cervical spine. Vertebral body height and alignment are maintained. There is straightening of the cervical lordosis. The odontoid process and lateral masses are intact. The atlantoaxial articulation is preserved noting productive degenerative change. The spinous processes appear intact. Large anterior osteophytes are seen throughout. A bone island is incidentally noted in the spinous process of T1. There is moderate to advanced multilevel cervical spondylosis. Uncovertebral and facet arthropathy contribute to neural foraminal narrowing at most levels. Intervertebral discs: There is advanced disc space narrowing seen at C6-C7. Mild to moderate disc space narrowing is seen at the remaining cervical levels. Central canal: Large posterior disc osteophyte complexes at C2-C3, C3-C4, and C6-C7 likely contribute to acquired compromise of the central canal. Soft tissues: The prevertebral and paraspinous soft tissues are within normal limits. There is atherosclerotic calcification of the carotid bulbs. Pacemaker leads and a central venous catheter are partially imaged in the left axillary region. Subcentimeter nodules are noted in the left thyroid lobe. Calvarium: The visualized calvarium at the skull base appears intact. Brain parenchyma: Partially visualized brain parenchyma the skull base is within normal limits. Sinuses and mastoids: The visualized paranasal sinuses are clear. There is a large right mastoid effusion. The left mastoid air cells are well pneumatized. Lung apices: Clear as visualized. IMPRESSION: 1. There is no evidence of fracture or subluxation involving the cervical spine. 2. Osteopenia and spondylotic change as above. 3. Right mastoid effusion. SINGLE VIEW PELVIS; 2 VIEWS RIGHT FEMUR CLINICAL HISTORY: Fall with left hip pain. FINDINGS: 2 AP pelvic radiographs with AP and crosstable lateral views of the left femur are correlated with pelvic radiograph dated 07/17/2015. The skeletal structures are osteopenic. There is an impacted subcapital fracture of the left femur. The remainder of the left femur appears intact. The bony pelvis and the right hip appear intact. Mild arthritic change and joint space narrowing is seen in the hips. Lumbosacral spondylosis is partially visualized. Soft tissue edema is noted in the left upper thigh. There is a nonobstructed abdominal bowel gas pattern. Pelvic phleboliths are observed. There is atherosclerotic calcification of the left femoral artery. IMPRESSION: 1. Osteopenia with an impacted fracture of the subcapital left femur. 2. The remainder of the left femur appears intact. 3. The bony pelvis and right hip appear preserved CT SCAN OF THE BRAIN WITHOUT IV CONTRAST CLINICAL HISTORY: Fall. Anticoagulated patient. COMPARISON STUDY: Prior CT scans of the brain, most recently dated 02/28/2017. TECHNIQUE: Unenhanced axial CT scan of the brain is performed from the vertex to the skull base. FINDINGS: Brain parenchyma: There are age-related involutional changes noting moderate to advanced subcortical and periventricular microangiopathic change. There is no hemorrhage, mass effect, or evidence of acute territorial ischemia by CT criteria. Cutler-white matter is preserved. No extra-axial fluid collection is seen. Mineralization is noted in the basal ganglia. This is similar to previous. Ventricles, sulci, cisterns: Prominent secondary to involutional change. Intracranial vasculature: There is atherosclerotic calcification of the cavernous carotid and vertebral arteries. Calvarium: The skeletal structures are osteopenic. No depressed calvarial fracture is seen. Sinuses and mastoids: The visualized paranasal sinuses are clear. The mastoid air cells are well pneumatized. Orbits: The bony orbits are grossly intact. There are bilateral ocular lens implants. IMPRESSION: Senescent changes as above with no hemorrhage, mass effect, or evidence of acute territorial ischemia by CT criteria. SINGLE VIEW PELVIS; 2 VIEWS RIGHT FEMUR CLINICAL HISTORY: Fall with left hip pain. FINDINGS: 2 AP pelvic radiographs with AP and crosstable lateral views of the left femur are correlated with pelvic radiograph dated 07/17/2015. The skeletal structures are osteopenic. There is an impacted subcapital fracture of the left femur. The remainder of the left femur appears intact. The bony pelvis and the right hip appear intact. Mild arthritic change and joint space narrowing is seen in the hips. Lumbosacral spondylosis is partially visualized. Soft tissue edema is noted in the left upper thigh. There is a nonobstructed abdominal bowel gas pattern. Pelvic phleboliths are observed. There is atherosclerotic calcification of the left femoral artery. IMPRESSION: 1. Osteopenia with an impacted fracture of the subcapital left femur. 2. The remainder of the left femur appears intact. 3. The bony pelvis and right hip appear preserved. EKG AV dual paced rhythm, 60 bpm Impression Assessment and Plan 71 yo F with multiple chronic medical problems presents with L hip fracture s/p mechanical fall at home. 1. L hip pain 2/2 impacted subcapital fracture s/p mechanical fall at home. Ortho was consulted. Pain control including scheduled Tylenol and PRN IV narcotics. Preop consultation requested from Cardiology service. 2. Hyperglycemia in setting of diabetic on insulin with reported noncompliance- pt reports not taking her insulin in last 24 hours for various reasons and BS was 433. Small amount of IVF was given with repeat BS 358. She was started on ISS with carb coverage and BID Lantus. Pharmacy consult was initiated and case with discussed with glycemic pharmacist cotton washer overnight. 3. ESRD on HD-recent HD session was yesterday. She is a T/R/Sat schedule. She has an accessed tunneled catheter as a prior fistula and AV graft are malfunctioning. She was scheduled for a fistulogram on 06/20 as an outpatient by Vascular Surgery. Consulted Nephrology for assistance with inpatient HD while admitted. 4. Pseudohyponatremia-likely 2/2 hyperglycemia. Corrected sodium is 137 5. Gross hematuria-poss 2/2 infection vs stone vs malignancy as a few possible causes. With some suprapubic tenderness on exam will screen urine to start. Sher is in place. She is also notable on coumadin with an INR at goal. 6. PAF-amio, Coreg. Coumadin held in light of possible procedure 7. NYHA Class III chronic heart failure-compensated. No evidence of volume overload. Cardiology for preop assessment. Cont torsemide, Coreg, ASA 81, Lipitor. 8. Depression-Lexapro recently increased from 10mg to 20mg in the last month. Stable symptoms. 9. Anemia of chronic disease- chronic, at baseline. DVT proph: SCDs in light of upcoming procedure. Pt is therapeutic on coumadin at this time. Coum held. Full Code Dispo-inpatient, med/surg DO [facility] Hospitalist Level of Care Med/Surg Resuscitation Status FULL RESUSCITATION VTE Prophylaxis VTE Risk Assessment Done? Y/N: Yes Risk Level: Moderate Given or contraindicated: SCD's
[2017-06-15] MEDS ORDERED: NURSING VERBAL MED ORDER ONE (20:30)
[2017-06-15] MEDS: CARVEDILOL 25 MG TAB PO SCH (21:00)
[2017-06-15] MEDS ORDERED: INSULIN ASPART 100 UNITS/ML 3 ML PEN SC SCH (21:00)
[2017-06-15] MEDS: DOCUSATE SODIUM/SENNA 50/8.6MG TAB PO SCH (21:00)
[2017-06-15] MEDS ORDERED: INSULIN GLARGINE SOLOSTAR 100 UNITS/ML 3 ML PEN SC SCH ×2 (21:00)
--- NOTE | 2017-06-15 21:37 | Anesthesiology Progress Note ---
Anesthesia Progress Note Date of Service Jun 15, 2017. Progress Notes Patient on coumadin due to A Fib hx - will need to correct prior to surgery. Also she has a pacer/ICD due to an idiopathic cardiomyopathy - please obtain the info for her AICD prior to surgery. Blood sugars very high on arrival and should be corrected before surgery. She is on dialysis and her sodium is low if that can be slowly corrected as well.
[2017-06-15 21:49] VITALS: BP 121/58; PULSE 60
[2017-06-15] MEDS: ESCITALOPRAM OXALATE 20 MG TAB PO SCH (21:52)
[2017-06-15] MEDS: ATORVASTATIN 40 MG TAB PO SCH (21:52)
[2017-06-15] MEDS: RANITIDINE HCL 150 MG TAB PO SCH (21:52)
[2017-06-15 23:05] LABS: URINE APPEARANCE CLOUDY (CLEAR); URINE BILIRUBIN NEG (NEG); URINE EPITHELIAL CELL AUTO >30 /lpf (0-5); URINE NITRITE NEG (NEG); URINE PH 5.5 (4.5-7.5); URINE SPECIFIC GRAVITY 1.019 (1.000-1.030); UROBILINOGEN NEG (NEG)
[2017-06-15 23:07] LABS: MANUAL MICROSCOPIC REQUIRED? NO; REVIEW REQ? YES; ZZURINE CULT IF INDIC CATH YES
[2017-06-15 23:08] LABS: URINE COLOR RED
[2017-06-15 23:45] VITALS: BP 128/62; PULSE 65; TEMP 37.2; O2SAT 96
[2017-06-16] VITALS (22 sets, daily range): BP systolic 87–133; BP diastolic 42–71; PULSE 59–63; TEMP 36.3–37.5; O2SAT 92–100; BMI 27.9
[2017-06-16] MEDS ORDERED: INSULIN HUMAN REGULAR IV BOLUS 5 UNIT in SYRINGE 0 ML IV SCH
[2017-06-16] MEDS ORDERED: INSULIN ASPART 100 UNITS/ML 3 ML PEN SC SCH ×2
[2017-06-16] MEDS: MoRPHine SULFATE 4 MG/ML 1 ML CARP\\VIAL IV PRN ×5 (02:12→12:17)
[2017-06-16] MEDS: INSULIN ASPART 100 UNITS/ML 3 ML PEN SC SCH ×4 (05:58→23:48)
[2017-06-16] MEDS ORDERED: CEFAZOLIN IV 2,000 MG in DEXTROSE 5% 50ML 50 ML IV SCH (06:00)
[2017-06-16] MEDS ORDERED: CEFAZOLIN 2000MG IV PUSH 10 ML IV SCH (06:00)
--- NOTE | 2017-06-16 07:16 | ORTHOPEDIC CONSULTATION ---
Patient requested [facility] MTDD
[2017-06-16 08:00] LABS: HEMATOCRIT 30.3 % (37-47); MEAN CELL VOLUME 98.1 fL (80-100); MEAN CORPUSCULAR HEMOGLOBIN 31.4 pg (25-34); RED BLOOD COUNT 3.09 M/uL (4.2-5.4); WHITE BLOOD COUNT 7.69 K/uL (4.8-10.8)
[2017-06-16 08:05] LABS: INR 2.9 (0.9-1.1); PROTHROMBIN TIME (PATIENT) 32.8 SECONDS (9.0-12.0)
[2017-06-16 08:28] LABS: BUN/CREATININE RATIO 8.6 (10-20); CALCIUM 8.8 mg/dl (8.5-10.1); CREATININE 4.42 mg/dl (0.60-1.20); POTASSIUM 3.8 mmol/L (3.5-5.1)
[2017-06-16] MEDS ORDERED: CARVEDILOL 25 MG TAB PO SCH (08:30)
[2017-06-16] MEDS: CALCIUM ACETATE 667MG GELCAP PO SCH ×3 (08:30→19:23)
[2017-06-16] MEDS: CARVEDILOL 25 MG TAB PO SCH ×2 (08:31→21:00)
[2017-06-16] MEDS: AMIODARONE 200 MG TAB PO SCH (08:32)
[2017-06-16] MEDS: TORSEMIDE 20 MG TAB PO SCH (08:32)
[2017-06-16] MEDS: RANITIDINE HCL 150 MG TAB PO SCH ×2 (08:32→21:52)
[2017-06-16] MEDS: CHOLECALCIFEROL 1000 INTER.UNIT TAB PO SCH (08:33)
[2017-06-16] MEDS: CYANOCOBALAMIN 500 MCG TAB (VIT B-12) PO SCH (08:34)
[2017-06-16 08:44] LABS: ESTIMATED AVERAGE GLUCOSE 183 mg/dl; HA1C FLAG Normal (Normal)
[2017-06-16 08:50] LABS: MEAN PLATELET VOLUME 11.7 fL (7.4-10.4); PLATELET COUNT 92 K/uL (130-400)
[2017-06-16] MEDS ORDERED: ASPIRIN 81 MG ECTAB PO SCH (09:00)
[2017-06-16] MEDS ORDERED: ESCITALOPRAM OXALATE 20 MG TAB PO SCH (09:00)
[2017-06-16] MEDS ORDERED: EPOETIN ALFA 10,000 UNITS/ML VIAL IV. SCH (09:00)
[2017-06-16] MEDS ORDERED: ATORVASTATIN 40 MG TAB PO SCH (09:00)
--- NOTE | 2017-06-16 09:13 | NEPHROLOGY CONSULTATION ---
DATE OF CONSULTATION: 06/16/2017 ATTENDING OF RECORD: Dr. Ricketts. REASON FOR CONSULTATION: ESRD. HISTORY OF PRESENT ILLNESS: This is a 71-year-old female who dialyzes Tuesdays, , Saturdays at the [facility], last dialysis treatment was Friday. The patient was at home and fell onto her left side and ended up having a left femoral fracture. The patient did have a fistula placed recently by vascular surgery in [place] and was scheduled this week for repeat fistulogram to help with the patient's chronic lymphedema of her left arm. The patient's pain is well controlled on morphine and otherwise doing well. PAST MEDICAL HISTORY: Cervical disc disease, type 2 diabetes, end-stage renal disease, peripheral vascular disease. PAST SURGICAL HISTORY: Fistula placement, tunnel dialysis catheter placement, appendectomy and D&C. SOCIAL HISTORY: No smoking, no alcohol, no drugs. Lives at home. FAMILY HISTORY: No renal disease in family CURRENT MEDICATIONS: 1. Amiodarone 200 mg a day. 2. Aspirin 81 mg a day. 3. Torsemide 10 mg daily. 4. Vitamin D 2000 units daily. 5. Vitamin B12 1000 mcg daily. 6. PhosLo 1 p.o. t.i.d. with meals. 7. Senna 2 tabs at night. 8. Zantac 150 mg p.o. b.i.d. 9. Coreg 50 mg p.o. b.i.d. 10. Lipitor 40 mg at night. 11. Lexapro 20 mg at night. 12. Lantus 25 units at night. REVIEW OF SYSTEMS: No headaches, no blurry vision. Positive shortness of breath with over exertion. No chest pain. No nausea or vomiting, no diarrhea or constipation. Does still urinate some. Does suffer from chronic left arm lymphedema following fistula placement. Currently with left hip pain which is well controlled. All other review of systems otherwise negative. PHYSICAL EXAMINATION: VITAL SIGNS: Temperature 36.6, pulse 60, respiratory rate 16, blood pressure is 122/63, satting 96% on room air. GENERAL: Awake, alert, oriented x3. EYES: No scleral icterus. ENT: Moist mucous membranes. NECK: Supple. PULMONARY: Clear to auscultation. CARDIAC: [place]. ABDOMEN: Bowel sounds positive, soft, nontender. EXTREMITIES: Left arm lymphedema, left hip pain. NEUROLOGICAL: Nonfocal. DERMATOLOGIC: No rash or ulcers noted. LABORATORY DATA: White count 7, H&H 9.7 and 30.3, platelet count is pending, yesterday's was 99. Sodium level is 134, potassium 3.8, chloride is 97, bicarb is 29, BUN is 38, creatinine is 4.4, glucose is 100, calcium is 8.8. INR is 2.9. UA with a pH of 5.5, specific gravity 1.019, 3+ protein, 2+ glucose, greater than 30 WBCs, greater than 30 RBCs. Urine culture is pending. IMPRESSION AND PLAN: 1. End-stage renal disease. Volume status and electrolytes are stable. The patient tentatively scheduled for surgery tomorrow morning, so we will proactively do dialysis today on a 3K bath with an attempt to remove 2 liters as blood pressure tolerates. 2. Anemia of renal failure. Hemoglobin level goal is 10-11. We will go ahead and re-dose Procrit today on dialysis. 3. Renal osteodystrophy. The patient is currently on vitamin D 2000 units a day as well as PhosLo 1 p.o. t.i.d. with meals. We will continue the current meds and follow phosphorus levels intermittently while in-house. 4. Access. The patient was scheduled as an outpatient for a fistulogram secondary to chronic lymphedema after fistula placement. We will discuss with our in-house vascular surgeon to see if possible to do it as an inpatient since transportation is difficult. I appreciate consultation. ISSA
--- NOTE | 2017-06-16 10:10 | DIAGNOSTIC IMAGING REPORT ---
CHEST ONE VIEW PORTABLE HISTORY: 71 years-old Female pre-op evaluation preoperative exam. Left hip fracture. COMPARISON: Chest radiograph 02/28/2017 TECHNIQUE: Portable AP view of the chest FINDINGS: Cardiac silhouette is moderately enlarged, unchanged. Left pectoral pacer/AICD appears unchanged. Left subclavian dual lumen hemodialysis catheter is unchanged with distal tip in the region of the right atrium. Atherosclerosis of the aorta. There are calcifications of the tracheobronchial tree. No pneumothorax or pleural effusion. Linear subsegmental left basilar opacities are unchanged compatible with scarring/atelectasis. No lobar airspace consolidations. Degenerative changes are seen within the spine and shoulders. IMPRESSION: Cardiomegaly without acute cardiopulmonary process. The above report was generated using voice recognition software. It may contain grammatical, syntax or spelling errors. Electronically signed by: Elvis Camacho M.D. 06/16/2017 10:09 AM Dictated Date/Time: 06/16/2017 10:07 AM
--- NOTE | 2017-06-16 10:14 | Progress Note ---
Medicine Progress Note Date & Time of Visit: Jun 16, 2017 at 10:04. Subjective seen resting in bed, comfortable pleasant states left hip is sore, pain medications relieving the anderson denies chest pain, dyspnea, dizziness, nausea had 1-2 episodes of hematuria at home, hazel cath output this morning is yellow , no abdominal pain denies other symptoms Objective Last 8 Hrs Date Time Temp Pulse Resp B/P (MAP) Pulse Ox O2 Delivery O2 Flow Rate FiO2 06/16/17 07:31 36.6 60 16 122/63 (82) 96 Room Air Physical Exam: General- oriented x3, not in distress, speaks in sentences with no efforgt Head- atraumatic Eyes- PERRL, EOMI, anicteric ENT- oropharynx clear Neck- supple, no JVD, no adenopathy, no thyromegaly; carotids +2/2 Lungs- clear breath sounds bilaterally, no rales/wheezes Heart- regular rhythm; no murmur, normal rate Abdomen- normal bowel sounds, soft, nontender Extremities- (+) edema on the left arm- chronic as per patient left lower extremity: externally rotated no pretibial edema, no calf tenderness; peripheral pulses intact Neuro- alert, oriented x 3; PERRL, EOMI; no facial palsy; no dysarthria; motor 5 /5 bilaterally; sensation 100% no other gross focal deficits Skin- warm & dry Laboratory Results: Last 24 Hours Test 06/15/17 15:45 06/15/17 18:18 06/15/17 20:35 06/15/17 21:24 White Blood Count 8.67 K/uL Red Blood Count 3.20 M/uL Hemoglobin 10.6 g/dL Hematocrit 31.4 % Mean Corpuscular Volume 98.1 fL Mean Corpuscular Hemoglobin 33.1 pg Mean Corpuscular Hemoglobin Concent 33.8 g/dl Platelet Count 99 K/uL Mean Platelet Volume 11.8 fL Neutrophils (%) (Auto) 78.9 % Lymphocytes (%) (Auto) 10.0 % Monocytes (%) (Auto) 9.5 % Eosinophils (%) (Auto) 0.8 % Basophils (%) (Auto) 0.1 % Neutrophils # (Auto) 6.84 K/uL Lymphocytes # (Auto) 0.87 K/uL Monocytes # (Auto) 0.82 K/uL Eosinophils # (Auto) 0.07 K/uL Basophils # (Auto) 0.01 K/uL RDW Standard Deviation 49.6 fL RDW Coefficient of Variation 13.9 % Immature Granulocyte % (Auto) 0.7 % Immature Granulocyte # (Auto) 0.06 K/uL Dohle Bodies 1+ Platelet Estimate DECREASED Prothrombin Time 30.6 SECONDS Prothromb Time International Ratio 2.7 Activated Partial Thromboplast Time 45.7 SECONDS Partial Thromboplastin Ratio 1.8 Sodium Level 129 mmol/L Potassium Level 3.9 mmol/L Chloride Level 92 mmol/L Carbon Dioxide Level 29 mmol/L Anion Gap 8.0 mmol/L Blood Urea Nitrogen 31 mg/dl Creatinine 4.13 mg/dl Estimated GFR () 11.8 Estimated GFR (Non- 10.2 BUN/Creatinine Ratio 7.5 Random Glucose 433 mg/dl Calcium Level 9.1 mg/dl Magnesium Level 2.1 mg/dl Total Bilirubin 0.8 mg/dl Direct Bilirubin 0.2 mg/dl Aspartate Amino Transf (AST/SGOT) 15 U/L Alanine Aminotransferase (ALT/SGPT) 24 U/L Alkaline Phosphatase 133 U/L Total Protein 7.2 gm/dl Albumin 3.6 gm/dl Lipase 134 U/L Beta-Hydroxybutyric Acid 0.76 mg/dL Bedside Glucose 387 mg/dl 358 mg/dl Urine Color RED Urine Appearance CLOUDY Urine pH 5.5 Urine Specific [place] 1.019 Urine Protein 3+ Urine Glucose (UA) 2+ Urine Ketones TRACE Urine Occult Blood 3+ Urine Nitrite NEG Urine Bilirubin NEG Urine Urobilinogen NEG Urine Leukocyte Esterase LARGE Urine WBC (Auto) >30 /hpf Urine RBC (Auto) >30 /hpf Urine Hyaline Casts (Auto) 0 /lpf Urine Epithelial Cells (Auto) >30 /lpf Urine Bacteria (Auto) 3+ Urine Renal Epithelial Cells 5-10 /lpf Urine Pathogenic Casts /lpf Urine Yeast (Auto) Test 06/15/17 23:45 06/16/17 02:08 06/16/17 05:39 06/16/17 07:09 Bedside Glucose 314 mg/dl 117 mg/dl 84 mg/dl White Blood Count 7.69 K/uL Red Blood Count 3.09 M/uL Hemoglobin 9.7 g/dL Hematocrit 30.3 % Mean Corpuscular Volume 98.1 fL Mean Corpuscular Hemoglobin 31.4 pg Mean Corpuscular Hemoglobin Concent 32.0 g/dl RDW Standard Deviation 49.6 fL RDW Coefficient of Variation 14.0 % Platelet Count 92 K/uL Mean Platelet Volume 11.7 fL Prothrombin Time 32.8 SECONDS Prothromb Time International Ratio 2.9 Sodium Level 134 mmol/L Potassium Level 3.8 mmol/L Chloride Level 97 mmol/L Carbon Dioxide Level 29 mmol/L Anion Gap 8.0 mmol/L Blood Urea Nitrogen 38 mg/dl Creatinine 4.42 mg/dl Est Creatinine Clear Calc Drug Dose 10.9 ml/min Estimated GFR () 10.9 Estimated GFR (Non- 9.4 BUN/Creatinine Ratio 8.6 Random Glucose 100 mg/dl Estimated Average Glucose 183 mg/dl Hemoglobin A1c 8.0 % Calcium Level 8.8 mg/dl 25-Hydroxy Vitamin D Total 38.0 ng/ml Date/Time Source Procedure Growth Status 06/15/17 20:15 Nasal MRSA DNA Surveillance Screen - Final Specimen Negative for MRSA by DNA Probe Complete 06/15/17 21:24 Urine,Catheterized Urine Culture Pending Received Assessment & Plan 71 yo F with multiple chronic medical problems presents with L hip fracture s/p mechanical fall at home. 1. Impacted subcapital fracture s/p mechanical fall at home - Ortho on board plan for hemiarthroplasty after medical pre-op evaluation possible Spinal vs. General Anesthesia pending Anesthesia eval - Pre Op eval: Cardiac: history of CHF, A fib on coumadin denies cardiac symptoms, euvolemic, INR 2.9 - on coumadin for A fib Cont torsemide, Coreg, ASA 81, Lipitor. awaiting Cardiology evaluation Renal: history of ESRD for HD today as per Dr. Cynthia Marie will discuss with Dr. العراقي re: possible Fistulogram while admitted (previously scheduled 06/20 in [place]) Endo: history of DM 2 hyperglycemia resolved, now on Insulin and Lantus Gross hematuria-poss 2/2 infection vs stone vs malignancy as a few possible causes. - in the setting of Aspirin and Coumadin use - states episodes started last Friday Hazel inserted on admission, now clear - urine culture: pending UA: possible UTI - will start Ceftriaxone IV pending urine cultures will consult Urology Depression-Lexapro recently increased from 10mg to 20mg in the last month. Anemia of chronic disease- chronic, at baseline. DVT proph: SCDs in light of upcoming procedure. Pt is therapeutic on coumadin at this time. Coum held. Full Code Dispo pending transition to Rehab when cleared medically and by Ortho Current Inpatient Medications: Current Inpatient Medications Medications (Trade) Dose Ordered Sig/Rayna Route Start Time Stop Time Status Last Admin Dose Admin Miscellaneous Information (Consult Glycemic Management Pharmacy) 1 ea UD PRN N/A 06/15/17 18:56 07/15/17 18:55 Ondansetron HCl (Zofran Inj) 4 mg Q6H PRN IV 06/15/17 19:15 07/15/17 19:14 Acetaminophen (Tylenol Tab) 650 mg Q6H PRN PO 06/15/17 19:15 07/15/17 19:14 Oxycodone HCl (Roxicodone Immediate Rel Tab) 5 mg Q4H PRN PO 06/15/17 19:15 06/29/17 19:14 Morphine Sulfate (MoRPHine SULFATE INJ) 4 mg Q2H PRN IV 06/15/17 19:15 06/29/17 19:14 06/16/17 09:41 4 MG Naloxone HCl (Narcan Inj) 0.1 mg PRN PRN IV 06/15/17 19:15 07/15/17 19:14 Senna/Docusate Sodium (Senokot S Tab) 2 tab HS PO 06/15/17 21:00 07/15/17 20:59 Polyethylene (Miralax Powder Packet) 17 gm DAILY PRN PO 06/15/17 19:15 07/15/17 19:14 Bisacodyl (Dulcolax Supp) 10 mg DAILY PRN NE 06/15/17 19:15 07/15/17 19:14 Glucose (Glucose 40% Gel) 15-30 GRAMS 15 GRAMS... UD PRN PO 06/15/17 19:30 07/15/17 19:29 Glucose (Glucose Chew Tab) 4-8 Tablets 4 Tabl... UD PRN PO 06/15/17 19:30 07/15/17 19:29 Dextrose (Dextrose 50% 50ML Syringe) 25-50ML OF 50% DW IV FOR... UD PRN IV 06/15/17 19:30 07/15/17 19:29 Glucagon (Glucagon Inj) 1 mg UD PRN SQ 06/15/17 19:30 07/15/17 19:29 Amiodarone HCl (Cordarone Tab) 200 mg QAM PO 06/16/17 09:00 07/16/17 08:59 06/16/17 08:32 200 MG Aspirin (Ecotrin Tab) 81 mg QAM PO 06/16/17 09:00 07/16/17 08:59 Loratadine (Claritin Tab) 10 mg QAM PRN PO 06/15/17 19:45 07/15/17 19:44 06/16/17 08:32 10 MG Lorazepam (Ativan Tab) 0.5 mg TID PRN PO 06/15/17 19:45 07/15/17 19:44 Ranitidine HCl (zANTac TAB) 150 mg BID PO 06/15/17 21:00 07/15/17 20:59 06/16/17 08:32 150 MG Torsemide (Demadex Tab) 10 mg QAM PO 06/16/17 09:00 07/16/17 08:59 06/16/17 08:32 10 MG Calcium Acetate (Phoslo Cap) 667 mg TIDM PO 06/16/17 08:30 07/16/17 08:29 Cholecalciferol (Vitamin D Tab) 2,000 inter.unit QAM PO 06/16/17 09:00 07/16/17 08:59 06/16/17 08:33 2,000 INTER.UNIT Cyanocobalamin (Vitamin B-12 Tab) 1,000 mcg QAM PO 06/16/17 09:00 07/16/17 08:59 Cefazolin Sodium 10 ml @ 2.5 mls/min PREOP IV 06/16/17 06:00 06/16/17 18:00 Carvedilol (Coreg Tab) 50 mg BID PO 06/15/17 21:00 07/15/17 20:59 06/16/17 08:31 50 MG Atorvastatin Calcium (Lipitor Tab) 40 mg HS PO 06/15/17 21:00 07/15/17 20:59 06/15/17 21:52 40 MG Escitalopram Oxalate (Lexapro Tab) 20 mg HS PO 06/15/17 21:00 07/15/17 20:59 06/15/17 21:52 20 MG Insulin Glargine (Lantus Solostar Pen) 25 units HS SC 06/15/17 21:00 07/15/17 20:59 06/15/17 21:46 25 UNITS Insulin Aspart (novoLOG ASPART) SLIDING SCALE If C... Q6 SC 06/16/17 06:00 07/16/17 05:59 Epoetin Aubrey (Procrit Inj) 10,000 units TODAY@0900 IV. 06/16/17 09:00 06/16/17 18:00
[2017-06-16] MEDS ORDERED: ROCEPHIN~PHARMACY CONSULT IN PROGRESS PRN (10:30)
--- NOTE | 2017-06-16 11:10 | Cardiology Consultation ---
Cardiology Consultation Date of Service Jun 16, 2017. (Starr Hannon, MUKUL) Cardiology Consultation Requesting Physician: Dr. Ricketts Attending Production Recorder: Dr. Campos History of Present Illness: Ellie Villar is a markedly complex 71 year old female who is well known to [facility] Cardiology service, history described below. She states she was in normal state of health yesterday when she was re- arranging pictures on a table/desk. She turned around to go across the room and reports she lost her balance, falling onto her right side. She states fall was mechanical in nature. She denies associated dizziness, syncope or near syncope with the fall. No ICD therapies. IN ER she was found to have acute left hip fracture. She was admitted for plans for ORIF of the left hip At time of consult, patient slightly drowsy from pain therapy. She is currently in dialysis. She offers no acute cardiac complaints. No recent episodes of chest pain at rest or with exertion, fluid status has been well controlled with dialysis, no recent concerns of worsening SOB. No dizziness, syncope or near syncope. No orthopnea, PND or edema. No cough, fever, chills. Other than feeling "tired" and mild left hip discomfort, she has no complaints. Past Medical/Surgical History: 1. Idiopathic cardiomyopathy with NYHA Class III systolic congestive heart failure status post Bi-ventricular ICD implantation. EF 40-45%. 2. History of pericardial effusion status post window in March 2015, post procedure pleuritis, resolved. 3. Hospitalization in Aug 2015 with sepsis, gram-positive bacteremia, Aerococcus Viridans. Resting echocardiography performed on August 30, 2015 demonstrated a normal size left ventricle with moderate concentric LVH, mild to moderate global hypokinesis, apical wall motion abnormality possibly reflecting pacemaker activation, EF 40 to 45%. The aortic valve was described as mildly sclerotic without significant stenosis. The mitral valve leaflets were noted to be thickened but opened well. On September 04, 2015 she underwent transesophageal echocardiography by Dr. Donovan Avlies which revealed a long, thin, linear lesion attached to the pacemaker lead in the atrium that was described as highly mobile, consistent with vegetation. A right upper extremity PICC line was placed with patient discharged to complete 4 weeks of IV ceftriaxone followed by a course of oral amoxicillin until January. 4. Diagnostic cardiac catheterization in [place] ~ 2002 as well as January 2006 at [facility] both documented normal epicardial coronary arteries. 5. History of LV apical thrombus. 6. Supraventricular tachycardia and paroxysmal atrial fibrillation, prescribed amiodarone and chronic Coumadin anticoagulation. 7. Hypertension, hypertensive heart disease 8. Multiple admission with hypertensive urgency 9. Type II diabetes mellitus 10. Anemia of chronic disease and iron deficiency 11. Stage IV chronic renal insufficiency. 12. History of TIA. 13. Hyperlipidemia 14. Obstructive sleep apnea with prior sleep testing many years ago in [place] with refusal of CPAP therapy 15. [place] Palsy 16. Depression 17. Anxiety 18. Degenerative cervical disc 19. Slow transit constipation 20. Peripheral vascular disease 21. Hyperparathyroidism, secondary renal 22. Removal of appendix 23. Breast biopsy, fibroid 24. Total hysterectomy 25. Bilateral cataract extractions Family History: Father with lung cancer, CAD. Mother with CAD and DM. Brother with throat cancer. Social History: Nonsmoker. No smokeless tobacco abuse. No alcohol. No illegal drug use. Two children. Review of patient's allergies indicates: Allergen Reactions Strawberries [Food (See Comments)] Edema face/lips/tongue Quan Inhibitors Other (Please comment) SOB,weakness,nausea Diphenhydramine Hcl Neuro complications (Please comment) " I get very weak and I went into CHF" Norvasc [Amlodipine Besylate] Other (Please comment) "I retained too much fluid" Current Outpatient Prescriptions Reported Home Medications Medications Dose Route/Sig Max Daily Dose Days Date Category Dose Instructions Ativan (Lorazepam) 0.5 Mg Tab 0.5 Mg PO TID PRN 06/15/17 Reported Lexapro (Escitalopram Oxalate) 20 Mg Tab 1 Tab PO DAILY 90 06/15/17 Reported Atorvastatin Calcium (Atorvastatin) 40 Mg Tab 40 Mg PO DAILY 02/28/17 Reported Calcium Acetate (Calcium Acetate (Phosphate Bin) 667 Mg Tab 1 Tab PO TIDM 02/28/17 Reported Tylenol (Acetaminophen) 500 Mg Tab 500 Mg PO UD PRN 12/24/16 Reported TAKE PER PACKAGE DIRECTIONS Vitamin B6 (Pyridoxine HCl) 100 Mg Tab 100 Mg PO DAILY 12/24/16 Reported Warfarin Sodium 4 Mg Tab 6 Mg PO WK 12/24/16 Reported TAKES ON SATURDAYS ONLY, OR OTHERWISE DIRECTED TO TAKE BY ANTICOAGULATION CLINIC/MD Warfarin Sodium 4 Mg Tab 4 Mg PO 6XWK 12/24/16 Reported TAKES EVERY DAY EXCEPT SATURDAYS, OR OTHERWISE DIRECTED TO TAKE BY ANTICOAGULATION CLINIC/MD Vitamin B12 (Cyanocobalamin) 1,000 Mcg Tab 1,000 Mcg PO QAM 12/24/16 Reported Womens Multi Vitamin & Mi (Multiple Vitamins W/ Minerals) 1 Tab Tab 1 Tab PO DAILY 12/24/16 Reported Ranitidine HCl 150 Mg Tab 150 Mg PO BID 12/24/16 Reported Torsemide 20 Mg Tab 10 Mg PO QAM 12/24/16 Reported TAKE HALF A TABLET (10 MG) DAILY, MAY INCREASE TO WHOLE TABLET (20 MG) FOR INCREASED EDEMA Coreg (Carvedilol) 25 Mg Tab 50 Mg PO BIDM 12/24/16 Reported TAKE THIS MEDICATION WITH MORNING AND EVENING MEALS Amiodarone HCl 200 Mg Tab 200 Mg PO QAM 12/24/16 Reported Vitamin D3 (Cholecalciferol) 2,000 Unit Cap 2,000 Inter.unit PO QAM 07/25/16 Reported Probiotic (Probiotic Product) 1 Tab Tab 1 Tab PO QAM 04/08/16 Reported Lantus Solostar (Insulin Glargine) 100 Unit/Ml Inj 24 Units SQ HS 04/08/16 Reported Aspirin Ec (Aspirin) 81 Mg Tab 81 Mg PO QAM 05/29/15 Reported Novolog Flexpen (Insulin Aspart) 100 Units/Ml Inj 1 Dose SC TIDM 07/06/14 Reported COVERAGE DIRECTED BY SLIDING SCALE Claritin (Loratadine) 10 Mg Tab 10 Mg PO QAM PRN 11/07/11 Reported PHYSICAL EXAMINATION: Last 8 Hrs Date Time Temp Pulse Resp B/P (MAP) Pulse Ox O2 Delivery O2 Flow Rate FiO2 06/16/17 07:31 36.6 60 16 122/63 (82) 96 Room Air GEN: A+Ox3. NAD HEENT: Normocephalic. Atraumatic. Conjunctiva pink, no scleral icterus. Neck: No carotid bruits. Normal JVP. Chest: There is a tunneled catheter just superior and lateral to the device pocket. Heart: RRR. Grade II/ holosystolic murmur at the apex and LLSB. S3 gallop. No rub. Lungs: Clear. Abdomen: +BS. Soft. No obvious mass or organomegaly. Extremities: No edema. No clubbing. No cyanosis. Pulses: Radial 2/4, posterior tibial 1/4. Data: Chest xray on admission - no acute cardiopulmonary process EKG on admission - AV sequential pacing Prior DATA: Device interrogation 06/02/17 demonstrates appropriate function. Battery voltage was 2.64 V with a LUCAS of 2.63 V. Biventricular paced 99.9% of the time. No arrhythmias. Device interrogation to be performed on 06/23/17 July 24, 2016 TTE Interpretation Summary (as per Dr. Trujillo): The left ventricular cavity size is normal. The LV wall thickness is severely increased ( concentric). The septal motion is abnormal consistent with right ventricular pacemaker. There is mild diffuse left ventricular hypokinesis. Calculated LV ejection Fraction = 45% (biplane method of discs). The left ventricular diastolic function is abnormal. The left atrium is moderately enlarged (4248 ml/ m^2). The right atrium is moderately enlarged. Moderate tricuspid regurgitation is present. Mild pulmonary hypertension is present. No pericardial effusion is noted. Labs: Last 24 Hours Test 06/15/17 15:45 06/15/17 18:18 06/15/17 20:35 06/15/17 21:24 White Blood Count 8.67 K/uL Red Blood Count 3.20 M/uL Hemoglobin 10.6 g/dL Hematocrit 31.4 % Mean Corpuscular Volume 98.1 fL Mean Corpuscular Hemoglobin 33.1 pg Mean Corpuscular Hemoglobin Concent 33.8 g/dl Platelet Count 99 K/uL Mean Platelet Volume 11.8 fL Neutrophils (%) (Auto) 78.9 % Lymphocytes (%) (Auto) 10.0 % Monocytes (%) (Auto) 9.5 % Eosinophils (%) (Auto) 0.8 % Basophils (%) (Auto) 0.1 % Neutrophils # (Auto) 6.84 K/uL Lymphocytes # (Auto) 0.87 K/uL Monocytes # (Auto) 0.82 K/uL Eosinophils # (Auto) 0.07 K/uL Basophils # (Auto) 0.01 K/uL RDW Standard Deviation 49.6 fL RDW Coefficient of Variation 13.9 % Immature Granulocyte % (Auto) 0.7 % Immature Granulocyte # (Auto) 0.06 K/uL Dohle Bodies 1+ Platelet Estimate DECREASED Prothrombin Time 30.6 SECONDS Prothromb Time International Ratio 2.7 Activated Partial Thromboplast Time 45.7 SECONDS Partial Thromboplastin Ratio 1.8 Sodium Level 129 mmol/L Potassium Level 3.9 mmol/L Chloride Level 92 mmol/L Carbon Dioxide Level 29 mmol/L Anion Gap 8.0 mmol/L Blood Urea Nitrogen 31 mg/dl Creatinine 4.13 mg/dl Estimated GFR () 11.8 Estimated GFR (Non- 10.2 BUN/Creatinine Ratio 7.5 Random Glucose 433 mg/dl Calcium Level 9.1 mg/dl Magnesium Level 2.1 mg/dl Total Bilirubin 0.8 mg/dl Direct Bilirubin 0.2 mg/dl Aspartate Amino Transf (AST/SGOT) 15 U/L Alanine Aminotransferase (ALT/SGPT) 24 U/L Alkaline Phosphatase 133 U/L Total Protein 7.2 gm/dl Albumin 3.6 gm/dl Lipase 134 U/L Beta-Hydroxybutyric Acid 0.76 mg/dL Bedside Glucose 387 mg/dl 358 mg/dl Urine Color RED Urine Appearance CLOUDY Urine pH 5.5 Urine Specific Craig 1.019 Urine Protein 3+ Urine Glucose (UA) 2+ Urine Ketones TRACE Urine Occult Blood 3+ Urine Nitrite NEG Urine Bilirubin NEG Urine Urobilinogen NEG Urine Leukocyte Esterase LARGE Urine WBC (Auto) >30 /hpf Urine RBC (Auto) >30 /hpf Urine Hyaline Casts (Auto) 0 /lpf Urine Epithelial Cells (Auto) >30 /lpf Urine Bacteria (Auto) 3+ Urine Renal Epithelial Cells 5-10 /lpf Urine Pathogenic Casts /lpf Urine Yeast (Auto) Test 06/15/17 23:45 06/16/17 02:08 06/16/17 05:39 06/16/17 07:09 Bedside Glucose 314 mg/dl 117 mg/dl 84 mg/dl White Blood Count 7.69 K/uL Red Blood Count 3.09 M/uL Hemoglobin 9.7 g/dL Hematocrit 30.3 % Mean Corpuscular Volume 98.1 fL Mean Corpuscular Hemoglobin 31.4 pg Mean Corpuscular Hemoglobin Concent 32.0 g/dl RDW Standard Deviation 49.6 fL RDW Coefficient of Variation 14.0 % Platelet Count 92 K/uL Mean Platelet Volume 11.7 fL Prothrombin Time 32.8 SECONDS Prothromb Time International Ratio 2.9 Sodium Level 134 mmol/L Potassium Level 3.8 mmol/L Chloride Level 97 mmol/L Carbon Dioxide Level 29 mmol/L Anion Gap 8.0 mmol/L Blood Urea Nitrogen 38 mg/dl Creatinine 4.42 mg/dl Est Creatinine Clear Calc Drug Dose 10.9 ml/min Estimated GFR () 10.9 Estimated GFR (Non- 9.4 BUN/Creatinine Ratio 8.6 Random Glucose 100 mg/dl Estimated Average Glucose 183 mg/dl Hemoglobin A1c 8.0 % Calcium Level 8.8 mg/dl 25-Hydroxy Vitamin D Total 38.0 ng/ml ASSESSMENT 1. Preoperative cardiology evaluation and risk assessment prior to planned ORIF of the left hip, possibly later today. -Stable cardiac signs/symptoms -Appears euvolemic -No recent arrhythmias -no recent chest pain -continue home medications including Amiodarone 200 mg daily with carvedilol , atorvastatin. ASA 81 mg on hold this AM for surgery. 2. Idiopathic cardiomyopathy with NYHA Class III systolic congestive heart failure status post Bi-ventricular ICD implantation. EF 45% Normal epicardial coronary arteries by cardiac catheterization in 2002 and January 2006 Volume status controlled on hemodialysis. No acute CHF concerns Two episodes of ventricular tachycardia on May 18, 2016 treated with ATP and one 25J shock. No recurrent arrhythmias on recent device interrogation Dwindling battery longevity noted on device interrogation, completed 06/02/17 and next scheduled device check on 06/23/17. Monthly checks recommended. 2. Supraventricular tachycardia and paroxysmal atrial fibrillation Amiodarone initiated 05/2015 Continue amiodarone 200 mg/day for the supraventricular as well as ventricular arrhythmias (See #1). Anticoagulation on hold for surgery. 3. Status post March 2015 pericardial window. Stable. No recurrence per last echo in 2016 4. Possible infected pacemaker lead wire noted in 08/2015. Patient completed 4 weeks of IV ceftriaxone via RUE PICC line followed by a course of oral amoxicillin Follow-up blood cultures negative on 04/03/2016 and 2015 5. Labile hypertension. Stable. -continue home medications Patient with past intolerance to ACEI, ARB, nitrates ( headaches), and amlodipine (fluid retention). 6. Chronic kidney disease, end stage, on hemodialysis, followed by Dr. Verena Marie. Case discussed with Dr. Campos. Stable cardiac signs/symptoms. No further cardiac testing warranted prior to planned ORIF. Continue amiodarone and carvedilol without interruption to control atrial arrhythmias in the perioperative period. Resume coumadin in the post op setting. Fluid status monitored with dialysis. Will follow. (Starr Hannon, PA-C) Cardiology attending physician: Patient seen and examined at the bedside. She is somewhat sleepy after hemodialysis and narcotic pain medication. Answers questions appropriately. Consuming her midday meal. Reports hip discomfort. Denies chest pain or unusual shortness of breath. No recent change in functional capacity, orthopnea , PND, or lower extremity edema. Eyes palpitations, lightheaded, dizziness, syncope or near-syncope. Fracture related to mechanical fall. She offers no other complaints at this time. PE: VSS. Gen: NAD, AAO x 3. Heart: Regular, Normal S1S2. 2/6 holosystolic murmur heard best at the apex. Lungs: Clear bilateral, no rales, rhonchi, wheeze. Abdomen: Soft, nontender, no rebound or guarding. Extremity: No clubbing, cyanosis, or edema. Neurologic: No focal motor deficit. A/P: Agree with above MUKUL history, physical exam, assessment and plan. Patient appears euvolemic, compensated without recent unstable dysrhythmia or acute coronary syndrome. She is considered moderate perioperative cardiovascular risk. No further cardiac testing or intervention would lower her risk at this time. Recommend amiodarone, beta martine, and statin therapy be continued uninterrupted perioperatively. Anticoagulation and aspirin on hold with plans for surgery in the a.m. We will continue to follow during hospitalization. Thank you for allow me to participate in the care of your patient. Cristian Campos DO, [facility] (Jase Campos DO)
--- NOTE | 2017-06-16 11:28 | ORTHOPEDIC CONSULTATION REPORT ---
DATE OF CONSULTATION: 06/16/2017 REASON FOR CONSULT: Left displaced femoral neck fracture. HISTORY OF PRESENT ILLNESS: The patient is a 71-year-old white female who resides at home and lives with family. Apparently, she was trying to arrange a picture frame,turned quickly and she lost her balance and fell on to her left side. She had immediate pain in the hip and groin and was brought to the Emergency Room. She had x-rays taken and it was found that she had a left displaced femoral neck fracture and was admitted by the medical service for further care. PAST MEDICAL HISTORY: Anxiety, biventricular ICD implantation, CHF, cervical disc disease, depression, diabetes mellitus type 2, end-stage renal disease on dialysis, history of TIA in the past, hyperparathyroidism, history of atrial fibrillation and chronic anticoagulation with Coumadin, history of pericardial effusion, peripheral vascular disease, history of DVT in the lower extremity after delivering her son 50 years ago, history of idiopathic cardiomyopathy, history of apical LV thrombus, obstructive sleep apnea with refusal of CPAP therapy, history of vegetations on pacemaker lead in the past treated with ceftriaxone. PAST SURGICAL HISTORY: As noted above biventricular ICD implantation, pericardial window in 2014. She has had multiple surgeries on both right and left upper extremities for fistula formation for dialysis, history D&C, appendectomy in the past. FAMILY HISTORY: Diabetes mellitus, heart disease. SOCIAL HISTORY: The patient is a nonsmoker, does not use alcohol and is and lives with family. MEDICATIONS: Amiodarone 200 mg p.o. q.a.m., aspirin 81 mg p.o. q.a.m., atorvastatin 40 mg p.o. every day, calcium acetate 1 tab p.o. t.i.d. at meals, carvedilol 50 mg p.o. b.i.d., vitamin D3 2000 international units p.o. q.a.m., vitamin B12 1000 mcg p.o. q.a.m., Lexapro 1 tab p.o. daily, insulin aspartame 1 dose subQ t.i.d., insulin glargine 24 units subQ at bedtime, multivitamin 1 tab p.o. daily, probiotic 1 tab p.o. q.a.m., pyridoxine 100 mg p.o. daily, ranitidine 150 mg p.o. b.i.d., torsemide 10 mg p.o. q.a.m., warfarin 4 mg p.o. 6 times a week and 6 mg on the 7th day, acetaminophen 500 mg p.o. as directed p.r.n., Claritin 10 mg p.o. q.a.m. p.r.n. and lorazepam 0.5 mg p.o. t.i.d. p.r.n. ALLERGIES: DIPHENHYDRAMINE; SULFA ANTIBIOTICS; ADHESIVES; STRAWBERRY; DESIREE INHIBITORS, WHICH CAUSE COUGH; NITROGLYCERIN; AMLODIPINE; LISINOPRIL. REVIEW OF SYSTEMS: As per admitting history and physical. PHYSICAL EXAMINATION: VITAL SIGNS: This morning 36.6, pulse 60, respirations 16, BP 122/63 and pulse ox 96 on room air. GENERAL: The patient is a well-developed, well-nourished white female who is alert and oriented x3 in no acute distress, pleasant and cooperative. EXTREMITIES: On examination of her left lower extremity, it is shortened and externally rotated compared to the right. She does have pain with attempted movement of the left hip just with even gentle log rolling. She is nontender at the left knee and ankle. Right lower extremity is essentially benign and has a good range of motion. There is no pain in the right hip, knee and ankle. She has no areas of abrasions, lacerations, or bruising over the left hip, but is tender on palpation. Upper extremities are essentially benign at this time other than she does have chronic swelling of the left upper extremity due to previous graft placement of the forearm and previous fistula formation in the past. She is nontender in the shoulders, elbows and wrists and has good range of motion at this time. She is nontender on palpation of her neck and has good range of motion of the neck at this time as well. She denies any thoracic or low back pain at this time. She has no gross motor or sensory loss at this time other than not moving her left hip due to fracture. ASSESSMENT: Left displaced femoral neck fracture. PLAN: I have spoken to Dr. Mccarthy this morning. The patient's INR is 2.9. She will need to have that brought down to at least 1.5 for general anesthesia and less for spinal anesthesia more than likely. She has been slated for dialysis this morning. She is yet to be seen by cardiology for their input as well. Dr. Mccarthy and I discussed whether they will decide to bring her INR down slowly versus more quickly with vitamin K depending on her history. Of note, the patient is a household ambulator. She states that she does have a walker at home that she does not use it very often due to the fact that she has a narrow space that she ambulates through and is able to hold on to many things. She no longer drives and is not a community ambulator per se. She will go out and do some shopping trips and either uses a scooter or sometimes she is able to ambulate with a shopping cart. She will likely be slated for either bipolar hemiarthroplasty and/or total hip arthroplasty, pending surgeon's choice and discussion with the patient. We will await medical clearance from nephrology, cardiology and medicine service and plan for the above noted surgery when they feel she is ready. ISSA
--- NOTE | 2017-06-16 11:53 | Pharmacy Progress Note ---
Glycemic Control Intl Consult Date of Service Jun 16, 2017. Scope Glycemic Pharmacist consulted by Dr Ricketts on 06/15/17 for glycemic control and to write orders per [facility] inpatient glycemic control protocol Objective Weight (Kilograms): 72.300 Accuchecks BSG (last 24hrs): Test 06/15/17 15:45 06/15/17 18:18 06/15/17 20:35 06/15/17 23:45 Random Glucose 433 mg/dl (70-99) Bedside Glucose 387 mg/dl (70-90) 358 mg/dl (70-90) 314 mg/dl (70-90) Test 06/16/17 02:08 06/16/17 05:39 06/16/17 07:09 Bedside Glucose 117 mg/dl (70-90) 84 mg/dl (70-90) Random Glucose 100 mg/dl (70-99) Laboratory Data (last 24hrs) Test 06/15/17 15:45 06/16/17 07:09 Anion Gap 8.0 mmol/L 8.0 mmol/L BUN/Creatinine Ratio 7.5 8.6 Blood Urea Nitrogen 31 mg/dl 38 mg/dl Creatinine 4.13 mg/dl 4.42 mg/dl Potassium Level 3.9 mmol/L 3.8 mmol/L Sodium Level 129 mmol/L 134 mmol/L White Blood Count 8.67 K/uL 7.69 K/uL Red Blood Count 3.20 M/uL Hemoglobin 10.6 g/dL Hematocrit 31.4 % Mean Corpuscular Volume 98.1 fL Mean Corpuscular Hemoglobin 33.1 pg Mean Corpuscular Hemoglobin Concent 33.8 g/dl Platelet Count 99 K/uL Mean Platelet Volume 11.8 fL Neutrophils (%) (Auto) 78.9 % Lymphocytes (%) (Auto) 10.0 % Monocytes (%) (Auto) 9.5 % Eosinophils (%) (Auto) 0.8 % Basophils (%) (Auto) 0.1 % Neutrophils # (Auto) 6.84 K/uL Lymphocytes # (Auto) 0.87 K/uL Monocytes # (Auto) 0.82 K/uL Eosinophils # (Auto) 0.07 K/uL Basophils # (Auto) 0.01 K/uL Hemoglobin A1c 8.0 % HbA1c Test 06/16/17 07:09 Hemoglobin A1c 8.0 % (4.5-5.6) H Recent Pertinent Medications Outpatient Anti-diabetic Regimen: * Lantus 24 units HS * Novolog 10 units with breakfast, 14 units with lunch and dinner * A1c = 7.8 % date The patient is currently receiving: * Basal insulin: Lantus 25 units every 24 hours * Correctional Insulin: Novolog Correction per scale ACHS Goal Range: Low 110 mg/dL - High 140 mg/dL Correction Factor: 30 mg/dL/unit * Prandial insulin: Per carb ratio of 1 unit per 10 grams CHO consumed Risk Factors for Insulin Resistance: * Recent Surgery: will go to ortho surgery for hip fx * Diet:NPO Assessment & Plan ASSESSMENT: * Patient is a 71 YO ESRD patient admitted for hip fracture after fall. * Blood sugars elevated on admission, but noted that patient missed last 2 dose of insulin. * Patient was started on lantus 25 units HS and a weight based stress of 3 correction factor/carb ratio, but this was later loosened. * Given pre-prandial level of 84 this morning and NPO status, will implement a lantus scale for tonight's dose based on sugar * Will continue correction factor/carb ratio as patient is NPO but required about 60% of total daily insulin dose as bolus as an outpatient. PLAN FOR INPATIENT GLYCEMIC CONTROL: * Basal insulin with LANTUS 25 units SQ (IF BSG >100) and 15 units (IF BSG < 100 ) * Correctional Insulin with NOVOLOG / REGULAR per scale ACHS or Q6hrs while NPO * Goal Range: Low 110 mg/dL - High 140 mg/dL * Correction Factor: 30 mg/dL/unit * Nutritional / Prandial insulin per carb ratio of 1 unit per 10 grams CHO consumed * Please note that the plan above was derived based on current level of insulin resistance and hospital stress. These recommendations are appropriate for inpatient admission only. Plan of care upon discharge will need to be reassessed to avoid potential outpatient hypo/hyperglycemia. Thank you.
[2017-06-16] MEDS: CEFTRIAXONE SOD INJ 1000 MG in DEXTROSE 5% 50ML IV SCH (13:53)
[2017-06-16] MEDS: NALOXONE HCL 0.4 MG/1 ML VIAL/CARP IV PRN ×2 (16:06→16:43)
[2017-06-16] MEDS ORDERED: PHYTONADIONE 5 MG TAB PO STA (18:48)
[2017-06-16] MEDS ORDERED: PHYTONADIONE INJ 5 MG in SODIUM CHLORIDE 0.9% 50ML 50 ML IV ONE (19:45)
[2017-06-16] MEDS ORDERED: INSULIN GLARGINE SOLOSTAR 100 UNITS/ML 3 ML PEN SC SCH ×2 (21:00)
[2017-06-16] MEDS: DOCUSATE SODIUM/SENNA 50/8.6MG TAB PO SCH (21:00)
--- NOTE | 2017-06-16 21:41 | Urology Consultation ---
History General Date of Service: Jun 16, 2017. Chief Complaint: gross hematuria Primary Care Physician: No Doctor, Assigned Pt seen a urologist before?: No History of Present Illness I am asked by Dr Ricketts to evaluate and treat patient for gross hematuria. She notes gross blood in urine at dialysis Friday 2 days ago. She makes little urine about 2 voids per day both small. She had a fall and a left hip fracture and currently has a hazel as the nurses did not think she could tolerate a bedpan. She has made hardly any urine since hazel was placed. She never smoked. I do not see any recent renal or bladder imaging. Laboratory Results Past 24 Hours Test 06/15/17 23:45 06/16/17 02:08 06/16/17 05:39 06/16/17 07:09 Range/Units Bedside Glucose 314 117 84 70-90 mg/dl White Blood Count 7.69 4.8-10.8 K/uL Red Blood Count 3.09 4.2-5.4 M/uL Hemoglobin 9.7 12.0-16.0 g/dL Hematocrit 30.3 37-47 % Mean Corpuscular Volume 98.1 80-100 fL Mean Corpuscular Hemoglobin 31.4 25-34 pg Mean Corpuscular Hemoglobin Concent 32.0 32-36 g/dl RDW Standard Deviation 49.6 36.4-46.3 fL RDW Coefficient of Variation 14.0 11.5-14.5 % Platelet Count 92 130-400 K/uL Mean Platelet Volume 11.7 7.4-10.4 fL Prothrombin Time 32.8 9.0-12.0 SECONDS Prothromb Time International Ratio 2.9 0.9-1.1 Sodium Level 134 136-145 mmol/L Potassium Level 3.8 3.5-5.1 mmol/L Chloride Level 97 98-107 mmol/L Carbon Dioxide Level 29 21-32 mmol/L Anion Gap 8.0 3-11 mmol/L Blood Urea Nitrogen 38 7-18 mg/dl Creatinine 4.42 0.60-1.20 mg/dl Est Creatinine Clear Calc Drug Dose 10.9 ml/min Estimated GFR () 10.9 Estimated GFR (Non- 9.4 BUN/Creatinine Ratio 8.6 10-20 Random Glucose 100 70-99 mg/dl Estimated Average Glucose 183 mg/dl Hemoglobin A1c 8.0 4.5-5.6 % Calcium Level 8.8 8.5-10.1 mg/dl 25-Hydroxy Vitamin D Total 38.0 30-100 ng/ml Test 06/16/17 11:48 06/16/17 16:55 06/16/17 20:35 Range/Units Bedside Glucose 100 125 114 70-90 mg/dl Labs were reviewed and are within normal limits unless listed below. Labs are available in the chart and at [facility] Problem List Medical Problems: (1) Acute renal failure Status: Acute (2) Anticoagulated on Coumadin Status: Acute (3) Anticoagulated on Coumadin Status: Acute (4) CKD (chronic kidney disease) Status: Acute (5) Concussion Status: Acute (6) Dehydration Status: Acute (7) ESRD (end stage renal disease) Status: Acute (8) Fall Status: Acute (9) Febrile illness Status: Acute (10) Forehead contusion Status: Acute (11) Head pain Status: Acute (12) Headache Status: Acute (13) Hyperglycemia Status: Acute (14) Hyperglycemia Status: Acute (15) Hyperglycemia Status: Acute (16) Malignant hypertension Status: Acute (17) Right arm cellulitis Status: Acute (18) Vomiting Status: Acute (19) Weakness Status: Acute (20) Weakness Status: Acute (21) Worsening renal function Status: Acute Past History A Fib, congestive heart failure, coronary artery disease, diabetes, dialysis, heart disease, high cholesterol, hypertension, PSVT, renal disease Past Surgical History: appendectomy, vasectomy (many fistulas grafts and interventions for access), other (D and C, has icd) Family History Diabetes mellitus Heart disease Social History Hx Tobacco Use In Past Year?: No Smoking: non-smoker Alcohol: never Drug use: none Marital status: , Housing status: lives with family Occupation status: retired Immunizations History of Influenza Vaccine: Yes Influenza Vaccine Date: Apr 08, 2017 History of Tetanus Vaccine?: utd Tetanus Immunization Date: Feb 16, 2008 History of Pneumococcal: Yes Pneumococcal Date: November 23, 2015 History of Hepatitis B Vaccine: No History of MDRO No Allergies Coded Allergies: Adhesives (Verified Allergy, Unknown, RXN TO ADHESIVE ON NITRO PATCH, 06/15) [place] (Verified Allergy, Unknown, UNKNOWN, 06/15/17) DESIREE Inhibitors (Verified Adverse Reaction, Mild, COUGH, 06/15/17) CAUSES COUGH Diphenhydramine (Verified Adverse Reaction, Mild, VERY WEAK, CHF, 06/16/17) Lisinopril (Verified Adverse Reaction, Mild, COUGH, 06/15/17) Nitroglycerin (Verified Adverse Reaction, Mild, HEADACHE/NAUSEA, 06/15/17) Sulfa Antibiotics (Verified Adverse Reaction, Mild, "KNOCKS ME OUT", ) Amlodipine (Verified Adverse Reaction, Unknown, RETAIN FLUID , 06/15/17) Medications Home Medications: Home Meds and Scripts Medications Dose Route/Sig Max Daily Dose Days Date Category Dose Instructions Ativan (Lorazepam) 0.5 Mg Tab 0.5 Mg PO TID PRN 06/15/17 Reported Lexapro (Escitalopram Oxalate) 20 Mg Tab 1 Tab PO DAILY 90 06/15/17 Reported Atorvastatin Calcium (Atorvastatin) 40 Mg Tab 40 Mg PO DAILY 02/28/17 Reported Calcium Acetate (Calcium Acetate (Phosphate Bin) 667 Mg Tab 1 Tab PO TIDM 02/28/17 Reported Tylenol (Acetaminophen) 500 Mg Tab 500 Mg PO UD PRN 12/24/16 Reported TAKE PER PACKAGE DIRECTIONS Vitamin B6 (Pyridoxine HCl) 100 Mg Tab 100 Mg PO DAILY 12/24/16 Reported Warfarin Sodium 4 Mg Tab 6 Mg PO WK 12/24/16 Reported TAKES ON SATURDAYS ONLY, OR OTHERWISE DIRECTED TO TAKE BY ANTICOAGULATION CLINIC/MD Warfarin Sodium 4 Mg Tab 4 Mg PO 6XWK 12/24/16 Reported TAKES EVERY DAY EXCEPT SATURDAYS, OR OTHERWISE DIRECTED TO TAKE BY ANTICOAGULATION CLINIC/MD Vitamin B12 (Cyanocobalamin) 1,000 Mcg Tab 1,000 Mcg PO QAM 12/24/16 Reported Womens Multi Vitamin & Mi (Multiple Vitamins W/ Minerals) 1 Tab Tab 1 Tab PO DAILY 12/24/16 Reported Ranitidine HCl 150 Mg Tab 150 Mg PO BID 12/24/16 Reported Torsemide 20 Mg Tab 10 Mg PO QAM 12/24/16 Reported TAKE HALF A TABLET (10 MG) DAILY, MAY INCREASE TO WHOLE TABLET (20 MG) FOR INCREASED EDEMA Coreg (Carvedilol) 25 Mg Tab 50 Mg PO BIDM 12/24/16 Reported TAKE THIS MEDICATION WITH MORNING AND EVENING MEALS Amiodarone HCl 200 Mg Tab 200 Mg PO QAM 12/24/16 Reported Vitamin D3 (Cholecalciferol) 2,000 Unit Cap 2,000 Inter.unit PO QAM 07/25/16 Reported Probiotic (Probiotic Product) 1 Tab Tab 1 Tab PO QAM 04/08/16 Reported Lantus Solostar (Insulin Glargine) 100 Unit/Ml Inj 24 Units SQ HS 04/08/16 Reported Aspirin Ec (Aspirin) 81 Mg Tab 81 Mg PO QAM 05/29/15 Reported Novolog Flexpen (Insulin Aspart) 100 Units/Ml Inj 1 Dose SC TIDM 07/06/14 Reported COVERAGE DIRECTED BY SLIDING SCALE Claritin (Loratadine) 10 Mg Tab 10 Mg PO QAM PRN 11/07/11 Reported Inpatient Medications: Current Inpatient Medications Medications (Trade) Dose Ordered Sig/Rayna Route Start Time Stop Time Status Last Admin Dose Admin Miscellaneous Information (Consult Glycemic Management Pharmacy) 1 ea UD PRN N/A 06/15/17 18:56 07/15/17 18:55 Ondansetron HCl (Zofran Inj) 4 mg Q6H PRN IV 06/15/17 19:15 07/15/17 19:14 Acetaminophen (Tylenol Tab) 650 mg Q6H PRN PO 06/15/17 19:15 07/15/17 19:14 Oxycodone HCl (Roxicodone Immediate Rel Tab) 5 mg Q4H PRN PO 06/15/17 19:15 06/29/17 19:14 Naloxone HCl (Narcan Inj) 0.1 mg PRN PRN IV 06/15/17 19:15 07/15/17 19:14 06/16/17 16:43 0.1 MG Senna/Docusate Sodium (Senokot S Tab) 2 tab HS PO 06/15/17 21:00 07/15/17 20:59 Polyethylene (Miralax Powder Packet) 17 gm DAILY PRN PO 06/15/17 19:15 07/15/17 19:14 Bisacodyl (Dulcolax Supp) 10 mg DAILY PRN KS 06/15/17 19:15 07/15/17 19:14 Glucose (Glucose 40% Gel) 15-30 GRAMS 15 GRAMS... UD PRN PO 06/15/17 19:30 07/15/17 19:29 Glucose (Glucose Chew Tab) 4-8 Tablets 4 Tabl... UD PRN PO 06/15/17 19:30 07/15/17 19:29 Dextrose (Dextrose 50% 50ML Syringe) 25-50ML OF 50% DW IV FOR... UD PRN IV 06/15/17 19:30 07/15/17 19:29 Glucagon (Glucagon Inj) 1 mg UD PRN SQ 06/15/17 19:30 07/15/17 19:29 Amiodarone HCl (Cordarone Tab) 200 mg QAM PO 06/16/17 09:00 07/16/17 08:59 06/16/17 08:32 200 MG Loratadine (Claritin Tab) 10 mg QAM PRN PO 06/15/17 19:45 07/15/17 19:44 06/16/17 08:32 10 MG Lorazepam (Ativan Tab) 0.5 mg TID PRN PO 06/15/17 19:45 07/15/17 19:44 Ranitidine HCl (zANTac TAB) 150 mg BID PO 06/15/17 21:00 07/15/17 20:59 06/16/17 08:32 150 MG Torsemide (Demadex Tab) 10 mg QAM PO 06/16/17 09:00 07/16/17 08:59 06/16/17 08:32 10 MG Calcium Acetate (Phoslo Cap) 667 mg TIDM PO 06/16/17 08:30 07/16/17 08:29 06/16/17 19:23 667 MG Cholecalciferol (Vitamin D Tab) 2,000 inter.unit QAM PO 06/16/17 09:00 07/16/17 08:59 06/16/17 08:33 2,000 INTER.UNIT Cyanocobalamin (Vitamin B-12 Tab) 1,000 mcg QAM PO 06/16/17 09:00 07/16/17 08:59 Carvedilol (Coreg Tab) 50 mg BID PO 06/15/17 21:00 07/15/17 20:59 06/16/17 08:31 50 MG Atorvastatin Calcium (Lipitor Tab) 40 mg HS PO 06/15/17 21:00 07/15/17 20:59 06/15/17 21:52 40 MG Escitalopram Oxalate (Lexapro Tab) 20 mg HS PO 06/15/17 21:00 07/15/17 20:59 06/15/17 21:52 20 MG Insulin Aspart (novoLOG ASPART) SLIDING SCALE If C... Q6 SC 06/16/17 06:00 07/16/17 05:59 06/16/17 14:15 2 UNITS Miscellaneous Information 1 ea UD PRN N/A 06/16/17 10:30 07/16/17 10:29 Ceftriaxone Sodium 1 gm/ Dextrose 50 ml @ 100 mls/hr Q24H IV 06/16/17 11:00 06/26/17 10:59 06/16/17 13:53 100 MLS/HR Insulin Glargine (Lantus Solostar Pen) SEE PROTOCOL HS SC 06/16/17 21:00 07/16/17 20:59 Tramadol HCl (Ultram Tab) 50 mg Q12H PRN PO 06/16/17 14:30 07/16/17 14:29 Review of Systems Review of Systems Constitutional: No fever, No chills Neurological: + dizzy, No passing out Gastrointestinal: No abdominal pain, No indigestion, No nausea, No vomiting, No constipation Cardiovascular: + swelling ankles/feet, No chest pain, No palpitations Respiratory: No chronic cough Musculoskeletal: + joint pain, + problem reported (thigh pain ) Female : + blood in urine Physical Exam Vital Signs: Vital Signs Past 12 Hours Date Time Temp Pulse Resp B/P (MAP) Pulse Ox O2 Delivery O2 Flow Rate FiO2 06/16/17 20:31 37.5 60 16 133/71 (91) 100 Nasal Cannula 2.0 06/16/17 15:45 92 Nasal Cannula 2.0 06/16/17 15:27 36.3 63 18 102/55 (71) 92 Nasal Cannula 2.0 06/16/17 13:56 37.1 63 16 117/54 (75) 94 Room Air 06/16/17 13:54 36.6 60 116/51 (72) 06/16/17 13:00 60 105/44 06/16/17 12:45 60 114/52 06/16/17 12:15 60 96/42 06/16/17 12:00 60 87/43 06/16/17 11:45 60 95/45 06/16/17 11:30 61 91/49 06/16/17 11:15 60 89/45 06/16/17 11:00 60 89/44 06/16/17 10:45 60 94/44 06/16/17 10:30 60 95/45 06/16/17 10:16 60 113/51 06/16/17 10:07 37.0 63 110/51 (70) Physical Exam: General Appearance: WD/WN, no apparent distress, + obese Eyes: bilateral eyes normal inspection ENT: hearing grossly normal Neck: no adenopathy, no JVD, trachea midline Respiratory/Chest: no respiratory distress, no accessory muscle use Cardiovascular: + irregularly irregular Extremities: + pedal edema, + pertinent finding (left thigh deformed by fracture) Neurologic/Psychiatric: alert, normal mood/affect, oriented x 3 Assessment & Plan Assessment & Plan gross hematuria non smoker so doubt bladder pathology suggest hazel be removed aviva after surgery she makes hardly any urine so she does not need it and it is a nidus for infection SHe needs a renal and bladder ultrasound as outpatient she will get a cysto in about 3 moths once she is recovered from the hip surgery
[2017-06-16] MEDS: ATORVASTATIN 40 MG TAB PO SCH (21:52)
[2017-06-16] MEDS: ESCITALOPRAM OXALATE 20 MG TAB PO SCH (21:52)
[2017-06-17] VITALS (8 sets, daily range): BP systolic 100–145; BP diastolic 53–72; PULSE 59–71; TEMP 36.5–37.1; O2SAT 94–100
[2017-06-17] MEDS: INSULIN ASPART 100 UNITS/ML 3 ML PEN SC SCH ×4 (05:58→21:39)
[2017-06-17] MEDS ORDERED: ROPIVACAINE 5MG/ML 30 ML 150 MG, BUPIVACAINE 0.5% MPF INJ 30 ML, EpINEphrine HCL INJ 0.... INFIL SCH ×8 (06:00)
--- NOTE | 2017-06-17 07:24 | Orthopedic Progress Note ---
Orthopedic Progress Note Date of Service Jun 17, 2017. Subjective Additional Notes: Patient seen at bedside this morning, comfortably, pain controlled, no acute issues overnight Objective AOx3, NAD LLE NVSI +EHL/FHL/TA/GS SILT grossly, CR< 2 seconds, compartments soft, skin intact, leg short and externally rotated. Date Time Temp Pulse Resp B/P (MAP) Pulse Ox O2 Delivery O2 Flow Rate FiO2 06/16/17 23:53 Nasal Cannula 2.0 06/16/17 23:35 36.7 60 18 128/58 (81) 100 Nasal Cannula 2.0 06/16/17 21:48 59 122/56 (78) 06/16/17 21:20 37.2 62 16 122/60 (80) 100 Nasal Cannula 2.0 06/16/17 20:46 36.7 61 16 124/60 (81) 100 Nasal Cannula 2.0 06/16/17 20:31 37.5 60 16 133/71 (91) 100 Nasal Cannula 2.0 06/16/17 15:45 92 Nasal Cannula 2.0 06/16/17 15:27 36.3 63 18 102/55 (71) 92 Nasal Cannula 2.0 06/16/17 13:56 37.1 63 16 117/54 (75) 94 Room Air 06/16/17 13:54 36.6 60 116/51 (72) 06/16/17 13:00 60 105/44 06/16/17 12:45 60 114/52 06/16/17 12:15 60 96/42 06/16/17 12:00 60 87/43 06/16/17 11:45 60 95/45 06/16/17 11:30 61 91/49 06/16/17 11:15 60 89/45 06/16/17 11:00 60 89/44 06/16/17 10:45 60 94/44 06/16/17 10:30 60 95/45 06/16/17 10:16 60 113/51 06/16/17 10:07 37.0 63 110/51 (70) 06/16/17 07:31 36.6 60 16 122/63 (82) 96 Room Air 06/16/17 07:30 Room Air Laboratory Results 24 Hours: Test 06/17/17 07:09 Assessment & Plan Assessment: Left displaced femoral neck fracture Elevated INR Plan: 71 yo Female with displaced left femoral neck fracture sustained after a fall. The patient was medically stabilized on 06/17/17. I indicated the patient for left hip hemiarthroplasty. The patient was informed of the risks and benefits of surgery, which included but not limited to infection, bleeding, blood clots, damage to nerves, vessels, bone and soft tissue, dislocation, leg length discrepancy, need for additional surgery and . The patient chose to move forward with surgical intervention and informed consent was obtained. Will plan for left hip hemiarthroplasty today. Medical clearance Follow up am INR NPO Bedrest Pain controlled
[2017-06-17] MEDS ORDERED: BUPIVACAINE 0.5 % 5 MG/1 ML PF 10ML VIAL ONE (07:30)
[2017-06-17 07:36] LABS: MEAN CORPUSCULAR HEMOGLOBIN 32.4 pg (25-34); RED BLOOD COUNT 3.06 M/uL (4.2-5.4); WHITE BLOOD COUNT 8.96 K/uL (4.8-10.8)
[2017-06-17 07:38] LABS: PLATELET COUNT 95 K/uL (130-400)
[2017-06-17 07:42] LABS: INR 1.3 (0.9-1.1); PROTHROMBIN TIME (PATIENT) 13.8 SECONDS (9.0-12.0)
[2017-06-17 08:06] LABS: BUN/CREATININE RATIO 7.5 (10-20); CREATININE 4.19 mg/dl (0.60-1.20); POTASSIUM 4.4 mmol/L (3.5-5.1)
[2017-06-17 08:17] LABS: HEPATITIS B AB POS
[2017-06-17] MEDS: CALCIUM ACETATE 667MG GELCAP PO SCH ×3 (08:30→18:44)
[2017-06-17] MEDS: AMIODARONE 200 MG TAB PO SCH (08:35)
[2017-06-17] MEDS: CARVEDILOL 25 MG TAB PO SCH ×2 (08:36→20:49)
[2017-06-17] MEDS: CYANOCOBALAMIN 500 MCG TAB (VIT B-12) PO SCH (08:37)
[2017-06-17] MEDS: TORSEMIDE 20 MG TAB PO SCH (08:37)
[2017-06-17] MEDS: CHOLECALCIFEROL 1000 INTER.UNIT TAB PO SCH (08:38)
[2017-06-17] MEDS: RANITIDINE HCL 150 MG TAB PO SCH ×2 (08:38→20:45)
[2017-06-17] MEDS ORDERED: PROPOFOL IV EMULSION 10 MG/ML 20 ML VIAL IV ONE ×2 (09:11→12:14)
[2017-06-17] MEDS ORDERED: MIDAZOLAM HCL 1 MG/ML 2ML VIAL ONE (09:12)
[2017-06-17] MEDS ORDERED: FENTANYL CITRATE INJ 50 MCG/1 ML 2 ML VIAL ONE (09:12)
[2017-06-17] MEDS ORDERED: ATROPINE SULFATE 0.1 MG/ML 5ML SYR IV PRN ×2 (10:00→11:00)
[2017-06-17] MEDS ORDERED: ONDANSETRON INJ 2 MG/ML 2 ML VIAL IV PRN ×3 (10:00→12:45)
[2017-06-17] MEDS ORDERED: EpHEDrine SULFATE INJ 50 MG/ML AMP IV PRN ×2 (10:00→11:00)
[2017-06-17] MEDS ORDERED: FENTANYL CITRATE INJ 50 MCG/1 ML 2 ML VIAL IV PRN ×2 (10:00→11:00)
[2017-06-17] MEDS ORDERED: BACITRACIN 50000 UNIT VIAL ONE (10:05)
[2017-06-17] MEDS ORDERED: POVIDONE-IODINE OP SOLN 30 ML BTL ONE (10:06)
[2017-06-17] MEDS ORDERED: CEFAZOLIN SOD 1 GM VIAL ONE (12:14)
[2017-06-17] MEDS ORDERED: OXYCODONE HCL IR 5 MG TAB (IMMEDIATE RELEASE) PO PRN (12:45)
[2017-06-17] MEDS ORDERED: NALOXONE HCL 0.4 MG/1 ML VIAL/CARP IV PRN (12:45)
[2017-06-17] MEDS ORDERED: COUGH DROP (SUGAR FREE) LOZ 24 LOZ/1 BOX PO PRN (12:45)
[2017-06-17] MEDS ORDERED: ACETAMINOPHEN 325 MG TAB PO PRN (12:45)
--- NOTE | 2017-06-17 13:09 | [facility] Operative Report ---
Operative Report Operative Date Jun 17, 2017. Pre-Operative Diagnosis Left displaced femoral neck fracture Post-Operative Diagnosis Same as preoperative diagnosis Procedure(s) Performed Left hip hemiarthroplasty, cemented, with cable Surgeon Dr. Culver Dramatic Teacher Surgeon(s) Torin Carlos PA-C Estimated Blood Loss 75 cc Findings see dictated op note Specimens A: left femoral head Drains none Anesthesia spinal Complication(s) None Disposition Recovery Room / PACU Indications 71 yo Female with displaced left femoral neck fracture sustained after a fall. The patient was medically stabilized on 06/17/2017. I indicated the patient for left hip hemiarthroplasty. The patient was informed of the risks and benefits of surgery, which included but not limited to infection, bleeding, blood clots, damage to nerves, vessels, bone and soft tissue, dislocation, leg length discrepancy, need for additional surgery and . The patient collectively chose to move forward with surgical intervention and informed consent was obtained. Description of Procedure Following induction of adequate anesthesia, the patient was transferred to the OR table and placed in the lateral decubitus position with right hip down. The left hip was prepped and draped in usual sterile manner. A posterior incision was made. Subcutaneous tissue was sharply dissected. Electro cautery was used for hemostasis. Fascia was incised throughout the length of the wound and the piriformis was identified. A #1 Vicryl suture was used to tage the piriformis. The short external rotators were divided from the posterior aspect of the femur and a capsulotomy was performed. A second #1 Vicryl suture was used to tag the capsule. Next, I turned my attention to the femoral neck fracture. The fracture was relatively low on the calcar and decision was made to proceed with the oscillating saw and create the calcar osteotomy. This bone fragment was removed. Prophylactically a cable was placed around the medial calcar. Following this, tenaculum and cob elevater was utilized to remove the femoral head. The head was measured on the back table and the 45 mm femoral head was chosen as the size to be used. Next, attention was turned to the acetabulum which was found to have no significant arthritis. All bony debris was removed. A sponge was placed in the acetabulum. Attention was then turned to the proximal femur where box osteotome was used to gain access to the femoral canal. A canal finder and power lateralizing reamer were utilized to further open. Sequential reaming was performed starting at size 9 mm and carried up to a 14mm and sequential raspings were taken up to a size 14, which was sunk completely and trial reduction was carried out and a 28 mm femoral head was chosen the size to be used with the 45 bipolar cup. Following a trial reduction, the hip was found to be stable to 45 degrees of internal rotation and 90 degrees of flexion with equal leg lengths. The calcar reamer was utilized to smooth the calcar and the instruments and trial components were removed. The hip was thoroughly irrigated with pulsatile irrigation. The canal was irrigated and dried, cement restrictor was placed and [place] cement was mixed. The size 14 low demand fracture stem was placed with a large centralizer and this was held in position well. All excess cement was removed and cement hardened. Following insertion of final stem component another trial reduction was carried out and again a +3.5 neck size was chosen as the size to be used. The final head and neck was impacted into position and the hip was reduced and stablity assess and was found to be stable to 45 degrees of internal rotation and 90 degrees of flexion. The wound was again irrigated. The [facility] joint mix was injected throughout the hip and the capsule was repaired using 5 fiberwire sutures through drill holes. Following this, the short external rotators were reapproximated to the posterior aspect of the femur also through drill holes and these were tied. Once again the wound was copiously irrigated with sterile saline solution. Fascia was closed using #1 Vicryl [id number] sutures, subcutaneous tissue was closed using 2- 0 vicryl, and skin was closed with lbiia. Sterile dressings xeroform, 4x4's, abd's, foam tape were applied and abduction pillow placed between the legs. The patient tolerated the procedure well and was taken to recovery room in stable condition. Due to the complex nature of the procedure, the entire surgery was performed with the operational assistance of Aby Carlos PA-C. The ssn/ssbn assistant navigator, under direct supervision, was involved in the actual performance of all aspects of the surgical procedure including hemostasis, tissue retraction and incision, instrument management, patient positioning, and wound closure. I attest to the content of the Intraoperative Record and any orders documented therein. Any exceptions are noted below. I attest to the content of the Intraoperative Record and any orders documented therein. Any exceptions are noted below.
--- NOTE | 2017-06-17 13:47 | Anesthesiology Progress Note ---
Anesthesia Post Op Note Date & Time Jun 17, 2017 at 13:46 Vital Signs Pain Intensity: 0 Vital Signs Past 12 Hours Date Time Temp Pulse Resp B/P (MAP) Pulse Ox O2 Delivery O2 Flow Rate FiO2 06/17/17 13:40 37.2 60 16 111/58 96 Nasal Cannula 2 06/17/17 13:30 37.2 60 16 117/51 99 Nasal Cannula 2 06/17/17 13:20 60 16 116/42 97 Nasal Cannula 2 06/17/17 13:10 60 16 129/53 97 Nasal Cannula 2 06/17/17 13:00 60 16 130/48 97 Nasal Cannula 2 06/17/17 12:51 36.5 61 16 123/53 94 Nasal Cannula 2 06/17/17 07:30 100 Nasal Cannula 2.0 06/17/17 07:13 37.1 60 16 145/67 (93) 100 2.0 Notes Mental Status: alert / awake / arousable, participated in evaluation Pt Amnestic to Procedure: Yes Nausea / Vomiting: adequately controlled Pain: adequately controlled Airway Patency, RR, SpO2: stable & adequate BP & HR: stable & adequate Hydration State: stable & adequate Neuraxial Anesthesia: was administered, sensory block is resolving Anesthetic Complications: no major complications apparent
--- NOTE | 2017-06-17 13:50 | DIAGNOSTIC IMAGING REPORT ---
L HIP UNILATERAL 2 VIEWS CLINICAL HISTORY: Post op left hip hemiarthroplasty COMPARISON: Pelvis and left femur radiographs June 15, 2017 2 FINDINGS: Alignment of the left hip arthroplasty is anatomic. There is no periprosthetic fracture or unexpected radiopaque foreign body. A cerclage wire of the proximal left femur is noted as well as skin libia. IMPRESSION: Expected findings following left hip arthroplasty. Electronically signed by: Orlando Patterson M.D. 06/17/2017 1:49 PM Dictated Date/Time: 06/17/2017 1:48 PM
[2017-06-17] MEDS: CEFTRIAXONE SOD INJ 1000 MG in DEXTROSE 5% 50ML IV SCH (14:21)
--- NOTE | 2017-06-17 15:03 | PROGRESS NOTE ---
DATE: 06/17/2017 SUBJECTIVE: The patient is seen and examined at the bedside. The patient underwent hip surgery earlier today without complication. She is feeling much better. Pain is well controlled. Denies chest pain or shortness of breath. Tolerating her evening meal. Offers no complaints at this time. REVIEW OF SYSTEMS: Pertinent positives noted above. A 4-system review including cardiovascular, pulmonary, gastroenterology, neurologic system is otherwise negative. TELEMETRY: The patient is currently not on telemetry. LABORATORY DATA: White blood cell count 8.96, hemoglobin is 9.9, platelet count 95. INR 1.3. Sodium 132, potassium 4.4, chloride 99, CO2 22, BUN 31, creatinine 4.19. MEDICATIONS: Reviewed via EMR. Please see list for details. PHYSICAL EXAMINATION: VITAL SIGNS: Temperature is 37.2 degrees centigrade, pulse 59 beats per minute and regular, respiratory rate is 16 breaths per minute, blood pressure 109/53, SaO2 98% on 2 liters. GENERAL: NAD, awake, alert and oriented x3. HEENT: Mucous membranes moist. No scleral icterus. Conjunctivae pink. NECK: Supple without JVD or HJR. No carotid bruit. HEART: Regular with a normal S1 and S2; 1-2/6 holosystolic murmur heard best at the apex. LUNGS: Clear without rales, rhonchi or wheeze. ABDOMEN: Soft, nontender. No rebound or guarding. Normal bowel sounds. EXTREMITIES: Warm and dry. There is no clubbing, cyanosis, or edema. NEUROLOGIC: Demonstrates no focal motor deficit. FINAL IMPRESSION: 1. Postoperative day 0, left hip open reduction and internal fixation. No complications reported. 2. Chronic compensated heart failure with mild left ventricular systolic dysfunction. 3. Paroxysmal atrial fibrillation maintained in sinus rhythm on amiodarone and chronically anticoagulated with warfarin. 4. History of normal epicardial coronary arteries in the past. 5. History of pericardial effusion status post window in 2014. 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 6. Labile hypertension -- controlled. 7. End-stage renal disease on hemodialysis followed by Dr. Marie. PLAN AND RECOMMENDATIONS: Coumadin will be restarted today. Continue amiodarone and carvedilol without interruptions. Monitor H&H postoperatively. The patient may participate in physical therapy. No further cardiac testing at this time. We will continue to follow during hospitalization.
--- NOTE | 2017-06-17 16:45 | Orthopedic Progress Note ---
Orthopedic Progress Note Date of Service Jun 17, 2017. Subjective Additional Notes: Post op progress note Patient seen at bedside eating lunch, comfortable, lower extremities still have decreased sensation from spinal block. Denies pain, N/V/SOB/CP Objective NAD, AOX3 LLE Compartments soft NT, dressing cdi, +2 DP pulse, SCDs in place. +spinal block, limiting exam Date Time Temp Pulse Resp B/P (MAP) Pulse Ox O2 Delivery O2 Flow Rate FiO2 06/17/17 15:52 36.5 61 18 103/65 (78) 98 Nasal Cannula 2.0 06/17/17 14:27 59 16 109/53 (71) 98 2.0 06/17/17 14:00 Nasal Cannula 2.0 06/17/17 13:40 37.2 60 16 111/58 96 Nasal Cannula 2 06/17/17 13:30 37.2 60 16 117/51 99 Nasal Cannula 2 06/17/17 13:20 60 16 116/42 97 Nasal Cannula 2 06/17/17 13:10 60 16 129/53 97 Nasal Cannula 2 06/17/17 13:00 60 16 130/48 97 Nasal Cannula 2 06/17/17 12:51 36.5 61 16 123/53 94 Nasal Cannula 2 06/17/17 07:30 100 Nasal Cannula 2.0 06/17/17 07:13 37.1 60 16 145/67 (93) 100 2.0 06/16/17 23:53 Nasal Cannula 2.0 06/16/17 23:35 36.7 60 18 128/58 (81) 100 Nasal Cannula 2.0 06/16/17 21:48 59 122/56 (78) 06/16/17 21:20 37.2 62 16 122/60 (80) 100 Nasal Cannula 2.0 06/16/17 20:46 36.7 61 16 124/60 (81) 100 Nasal Cannula 2.0 06/16/17 20:31 37.5 60 16 133/71 (91) 100 Nasal Cannula 2.0 Laboratory Results 24 Hours: Test 06/17/17 07:09 Hematocrit 30.0 % Hemoglobin 9.9 g/dL Prothromb Time International Ratio 1.3 Prothrombin Time 13.8 SECONDS Assessment & Plan Assessment: s/p Left Hip Hemiarthroplasty for Left displaced femoral neck fracture Plan: -Ancef x 24 -Restart patient's home dose Warfarin for DVT PPX, first dose tonight -Pain controlled -IV fluids x 24 -PO XR - well aligned, well fixed cemented hip hemiarthroplasty, no fracture/ dislocation. -WBAT LLE -Posterior hip precautions -PT/OT -Am labs
--- NOTE | 2017-06-17 18:52 | Progress Note ---
Medicine Progress Note Date & Time of Visit: Jun 17, 2017 at 18:31. Subjective Pt was seen and examined Lying in bed with no distress Pt said that she feels fine Denies any chest pain, palpitation and SOB Objective Last 8 Hrs Date Time Temp Pulse Resp B/P (MAP) Pulse Ox O2 Delivery O2 Flow Rate FiO2 06/17/17 17:00 36.5 60 18 100/53 (69) 99 Nasal Cannula 2.0 06/17/17 15:52 36.5 61 18 103/65 (78) 98 Nasal Cannula 2.0 06/17/17 15:40 Room Air 06/17/17 14:27 59 16 109/53 (71) 98 2.0 06/17/17 14:00 Nasal Cannula 2.0 06/17/17 13:40 37.2 60 16 111/58 96 Nasal Cannula 2 06/17/17 13:30 37.2 60 16 117/51 99 Nasal Cannula 2 06/17/17 13:20 60 16 116/42 97 Nasal Cannula 2 06/17/17 13:10 60 16 129/53 97 Nasal Cannula 2 06/17/17 13:00 60 16 130/48 97 Nasal Cannula 2 06/17/17 12:51 36.5 61 16 123/53 94 Nasal Cannula 2 Physical Exam: General- No acute distress Head- atraumatic Eyes- PERRL, EOMI ENT- oropharynx Neck- supple, no JVD Lungs-No wheezing Heart- regular rhythm; +murmur Abdomen- normal bowel sounds, soft Extremities- no calf tenderness Neuro- alert, oriented x 3; PERRL, EOMI Skin- warm & dry Laboratory Results: Last 24 Hours Test 06/16/17 20:35 06/16/17 23:38 06/17/17 05:51 06/17/17 07:09 Bedside Glucose 114 mg/dl 132 mg/dl 129 mg/dl White Blood Count 8.96 K/uL Red Blood Count 3.06 M/uL Hemoglobin 9.9 g/dL Hematocrit 30.0 % Mean Corpuscular Volume 98.0 fL Mean Corpuscular Hemoglobin 32.4 pg Mean Corpuscular Hemoglobin Concent 33.0 g/dl RDW Standard Deviation 51.3 fL RDW Coefficient of Variation 14.3 % Platelet Count 95 K/uL Mean Platelet Volume 11.0 fL Prothrombin Time 13.8 SECONDS Prothromb Time International Ratio 1.3 Sodium Level 132 mmol/L Potassium Level 4.4 mmol/L Chloride Level 99 mmol/L Carbon Dioxide Level 22 mmol/L Anion Gap 11.0 mmol/L Blood Urea Nitrogen 31 mg/dl Creatinine 4.19 mg/dl Est Creatinine Clear Calc Drug Dose 11.7 ml/min Estimated GFR () 11.6 Estimated GFR (Non- 10.0 BUN/Creatinine Ratio 7.5 Random Glucose 133 mg/dl Calcium Level 9.0 mg/dl Hepatitis B Surface Antigen NEG Hepatitis B Surface Antibody POS Test 06/17/17 08:22 06/17/17 13:00 Bedside Glucose 131 mg/dl 135 mg/dl Assessment & Plan 71 yo F with multiple chronic medical problems presents with L hip fracture s/p mechanical fall at home. Left Hip fracture Pelvis xray showed Impacted subcapital fracture due to mechanical fall Was medically cleared by Cardio S/P Left hip hemiarthroplasty, cemented, with cable Ortho on board Pain control Monitor H/H Incentive spirometry Will need placement PT/OT A fib Rate is controlled Coumadin resumed today Continue coreg and amiodarone stable ESRD ON HD Had HD done yesterday Plan to have Fistulogram while admitting (previously scheduled 06/20 in [facility]) stable DM 2 Recent Hba1c 8 on 06/16 On lantus Insulin coverage Gross hematuria poss 2/2 infection vs stone vs malignancy as a few possible causes. Urology on board Recommended to D/C Sher aviva Will need a cysto in about 3 moths once stable UTI Urine cx grew Ecoli Received IV Ceftriaxone On Ancef now Afebrile, No leukocytosis Depression On Lexapro 20mg stable Anemia of chronic disease hgb stable Continue monitor cbc DVT px SCDs Coumadin resume Full Code Disposition Will need Rehab when cleared medically and by Ortho Consultants: Ortho Cardio Current Inpatient Medications: Current Inpatient Medications Medications (Trade) Dose Ordered Sig/Rayna Route Start Time Stop Time Status Last Admin Dose Admin Miscellaneous Information (Consult Glycemic Management Pharmacy) 1 ea UD PRN N/A 06/15/17 18:56 07/15/17 18:55 Ondansetron HCl (Zofran Inj) 4 mg Q6H PRN IV 06/15/17 19:15 07/15/17 19:14 Acetaminophen (Tylenol Tab) 650 mg Q6H PRN PO 06/15/17 19:15 07/15/17 19:14 Oxycodone HCl (Roxicodone Immediate Rel Tab) 5 mg Q4H PRN PO 06/15/17 19:15 06/29/17 19:14 Senna/Docusate Sodium (Senokot S Tab) 2 tab HS PO 06/15/17 21:00 07/15/17 20:59 Polyethylene (Miralax Powder Packet) 17 gm DAILY PRN PO 06/15/17 19:15 07/15/17 19:14 Bisacodyl (Dulcolax Supp) 10 mg DAILY PRN MD 06/15/17 19:15 07/15/17 19:14 Glucose (Glucose 40% Gel) 15-30 GRAMS 15 GRAMS... UD PRN PO 06/15/17 19:30 07/15/17 19:29 Glucose (Glucose Chew Tab) 4-8 Tablets 4 Tabl... UD PRN PO 06/15/17 19:30 07/15/17 19:29 Dextrose (Dextrose 50% 50ML Syringe) 25-50ML OF 50% DW IV FOR... UD PRN IV 06/15/17 19:30 07/15/17 19:29 Glucagon (Glucagon Inj) 1 mg UD PRN SQ 06/15/17 19:30 07/15/17 19:29 Amiodarone HCl (Cordarone Tab) 200 mg QAM PO 06/16/17 09:00 07/16/17 08:59 06/17/17 08:35 200 MG Loratadine (Claritin Tab) 10 mg QAM PRN PO 06/15/17 19:45 07/15/17 19:44 06/16/17 08:32 10 MG Lorazepam (Ativan Tab) 0.5 mg TID PRN PO 06/15/17 19:45 07/15/17 19:44 Ranitidine HCl (zANTac TAB) 150 mg BID PO 06/15/17 21:00 07/15/17 20:59 06/17/17 08:38 150 MG Torsemide (Demadex Tab) 10 mg QAM PO 06/16/17 09:00 07/16/17 08:59 06/17/17 08:37 10 MG Calcium Acetate (Phoslo Cap) 667 mg TIDM PO 06/16/17 08:30 07/16/17 08:29 06/17/17 14:10 667 MG Cholecalciferol (Vitamin D Tab) 2,000 inter.unit QAM PO 06/16/17 09:00 07/16/17 08:59 06/17/17 08:38 2,000 INTER.UNIT Cyanocobalamin (Vitamin B-12 Tab) 1,000 mcg QAM PO 06/16/17 09:00 07/16/17 08:59 06/17/17 08:37 1,000 MCG Carvedilol (Coreg Tab) 50 mg BID PO 06/15/17 21:00 07/15/17 20:59 06/17/17 08:36 50 MG Atorvastatin Calcium (Lipitor Tab) 40 mg HS PO 06/15/17 21:00 07/15/17 20:59 06/16/17 21:52 40 MG Escitalopram Oxalate (Lexapro Tab) 20 mg HS PO 06/15/17 21:00 07/15/17 20:59 06/16/17 21:52 20 MG Miscellaneous Information 1 ea UD PRN N/A 06/16/17 10:30 07/16/17 10:29 Ceftriaxone Sodium 1 gm/ Dextrose 50 ml @ 100 mls/hr Q24H IV 06/16/17 11:00 06/26/17 10:59 06/17/17 14:21 100 MLS/HR Tramadol HCl (Ultram Tab) 50 mg Q12H PRN PO 06/16/17 14:30 07/16/17 14:29 Cefazolin Sodium 1000 mg/Syringe 5 ml @ 100 mls/hr Q8H IV 06/17/17 20:00 06/18/17 04:02 Morphine Sulfate (MoRPHine SULFATE INJ) 4 mg Q4 PRN IV 06/17/17 12:45 07/01/17 12:44 Naloxone HCl (Narcan Inj) 0.4 mg Q1M PRN IV 06/17/17 12:45 07/17/17 12:44 Menthol (Nice Linwood) 1 linwood Q2H PRN PO 06/17/17 12:45 07/17/17 12:44 Warfarin Sodium (Coumadin Tab) 5 mg DAILY@16 PO 06/17/17 20:00 07/17/17 19:59 Insulin Aspart (novoLOG ASPART) SLIDING SCALE If C... ACHS DE 06/17/17 13:15 07/17/17 13:14 06/17/17 14:20 4 UNITS Insulin Glargine (Lantus Solostar Pen) 25 units HS DE 06/17/17 21:00 07/17/17 20:59
[2017-06-17] MEDS ORDERED: WARFARIN SOD 5 MG TAB PO SCH (20:00)
[2017-06-17] MEDS: DOCUSATE SODIUM/SENNA 50/8.6MG TAB PO SCH (20:45)
[2017-06-17] MEDS: ESCITALOPRAM OXALATE 20 MG TAB PO SCH (20:45)
[2017-06-17] MEDS: ATORVASTATIN 40 MG TAB PO SCH (20:45)
[2017-06-17] MEDS ORDERED: INSULIN GLARGINE SOLOSTAR 100 UNITS/ML 3 ML PEN SC SCH (21:00)
[2017-06-17] MEDS ORDERED: DOCUSATE SODIUM/SENNA 50/8.6MG TAB PO SCH (21:00)
[2017-06-17] MEDS: CEFAZOLIN IV 1,000 MG in SYRINGE 0 ML IV SCH (21:31)
[2017-06-17] MEDS: ACETAMINOPHEN 325 MG TAB PO PRN (22:36)
[2017-06-18] MEDS: CEFAZOLIN IV 1,000 MG in SYRINGE 0 ML IV SCH (03:55)
[2017-06-18 04:00] VITALS: BP 127/66; PULSE 60; TEMP 36.9; O2SAT 94
[2017-06-18] MEDS ORDERED: INSULIN ASPART 100 UNITS/ML 3 ML PEN SC SCH ×2 (04:00)
[2017-06-18] MEDS ORDERED: ROPIVACAINE 5MG/ML 30 ML 150 MG, BUPIVACAINE/EPINEPHR 0.5% MPF 30 ML, KETOROLAC TROMETH... INFIL SCH ×7 (06:00)
[2017-06-18 06:38] VITALS: BP 136/70; PULSE 60; TEMP 36.7; O2SAT 97
[2017-06-18 07:26] VITALS: BP 154/69; PULSE 60; TEMP 36.5; O2SAT 95
[2017-06-18] MEDS: CALCIUM ACETATE 667MG GELCAP PO SCH ×3 (07:59→17:56)
[2017-06-18] MEDS: INSULIN ASPART 100 UNITS/ML 3 ML PEN SC SCH ×4 (08:04→22:15)
[2017-06-18 08:15] LABS: HEMATOCRIT 28.6 % (37-47); MEAN CELL VOLUME 97.3 fL (80-100); MEAN CORPUSCULAR HEMOGLOBIN 32.3 pg (25-34); MEAN CORPUSCULAR HGB CONC 33.2 g/dl (32-36); MEAN PLATELET VOLUME 10.9 fL (7.4-10.4); PLATELET COUNT 114 K/uL (130-400); RED BLOOD COUNT 2.94 M/uL (4.2-5.4); WHITE BLOOD COUNT 14.66 K/uL (4.8-10.8)
[2017-06-18 08:24] LABS: INR 1.1 (0.9-1.1)
[2017-06-18] MEDS ORDERED: INSULIN GLARGINE SOLOSTAR 100 UNITS/ML 3 ML PEN SC ONE (08:30)
[2017-06-18] MEDS: AMIODARONE 200 MG TAB PO SCH (08:31)
[2017-06-18] MEDS: CARVEDILOL 25 MG TAB PO SCH ×2 (08:32→22:11)
[2017-06-18] MEDS: TORSEMIDE 20 MG TAB PO SCH (08:32)
[2017-06-18] MEDS: CYANOCOBALAMIN 500 MCG TAB (VIT B-12) PO SCH (08:33)
[2017-06-18] MEDS: CHOLECALCIFEROL 1000 INTER.UNIT TAB PO SCH (08:33)
[2017-06-18] MEDS: RANITIDINE HCL 150 MG TAB PO SCH ×2 (08:33→22:11)
[2017-06-18] MEDS: ACETAMINOPHEN 325 MG TAB PO PRN ×2 (08:36→22:42)
--- NOTE | 2017-06-18 08:40 | Nephrology Progress Note ---
Nephrology Progress Note Date of Service: Jun 18, 2017. Subjective 71 yo female who dialyzes t/h/s-had dialysis on friday since had surgery on her hip yesterday. went well. pt did have gross hematuria with the hazel and urology was consulted. recommended removing hazel as soon as possible and plan on cysto in 3 months. pt doing well. no complaints. pain is well controlled. in good spirits. Objective Date Time Temp Pulse Resp B/P (MAP) Pulse Ox O2 Delivery O2 Flow Rate FiO2 06/18/17 07:26 36.5 60 16 154/69 (97) 95 Room Air 06/18/17 06:38 36.7 60 18 136/70 (92) 97 Room Air 06/18/17 04:00 36.9 60 16 127/66 (86) 94 Room Air 06/18/17 00:10 Room Air 06/17/17 23:35 36.7 60 20 108/56 (73) 94 Room Air 06/17/17 21:00 71 109/62 (78) 06/17/17 20:12 123/72 (89) 06/17/17 17:00 36.5 60 18 100/53 (69) 99 Nasal Cannula 2.0 06/17/17 15:52 36.5 61 18 103/65 (78) 98 Nasal Cannula 2.0 06/17/17 15:40 Room Air 06/17/17 14:27 59 16 109/53 (71) 98 2.0 06/17/17 14:00 Nasal Cannula 2.0 06/17/17 13:40 37.2 60 16 111/58 96 Nasal Cannula 2 06/17/17 13:30 37.2 60 16 117/51 99 Nasal Cannula 2 06/17/17 13:20 60 16 116/42 97 Nasal Cannula 2 06/17/17 13:10 60 16 129/53 97 Nasal Cannula 2 06/17/17 13:00 60 16 130/48 97 Nasal Cannula 2 06/17/17 12:51 36.5 61 16 123/53 94 Nasal Cannula 2 Physical Exam: General-aaox3 Eyes-no scleral icterus ENT-mmm Neck-supple Lungs-cta Heart-rrr Abdomen-bs+ s/nt/nd Extremities-no c/c/e Neuro-nonfocal Current Inpatient Medications Medications (Trade) Dose Ordered Sig/Rayna Route Start Time Stop Time Status Last Admin Dose Admin Miscellaneous Information (Consult Glycemic Management Pharmacy) 1 ea UD PRN N/A 06/15/17 18:56 07/15/17 18:55 Ondansetron HCl (Zofran Inj) 4 mg Q6H PRN IV 06/15/17 19:15 07/15/17 19:14 Acetaminophen (Tylenol Tab) 650 mg Q6H PRN PO 06/15/17 19:15 07/15/17 19:14 06/17/17 22:36 650 MG Oxycodone HCl (Roxicodone Immediate Rel Tab) 5 mg Q4H PRN PO 06/15/17 19:15 06/29/17 19:14 Senna/Docusate Sodium (Senokot S Tab) 2 tab HS PO 06/15/17 21:00 07/15/17 20:59 06/17/17 20:45 2 TAB Polyethylene (Miralax Powder Packet) 17 gm DAILY PRN PO 06/15/17 19:15 07/15/17 19:14 Bisacodyl (Dulcolax Supp) 10 mg DAILY PRN NM 06/15/17 19:15 07/15/17 19:14 Glucose (Glucose 40% Gel) 15-30 GRAMS 15 GRAMS... UD PRN PO 06/15/17 19:30 07/15/17 19:29 Glucose (Glucose Chew Tab) 4-8 Tablets 4 Tabl... UD PRN PO 06/15/17 19:30 07/15/17 19:29 Dextrose (Dextrose 50% 50ML Syringe) 25-50ML OF 50% DW IV FOR... UD PRN IV 06/15/17 19:30 07/15/17 19:29 Glucagon (Glucagon Inj) 1 mg UD PRN SQ 06/15/17 19:30 07/15/17 19:29 Amiodarone HCl (Cordarone Tab) 200 mg QAM PO 06/16/17 09:00 07/16/17 08:59 06/17/17 08:35 200 MG Loratadine (Claritin Tab) 10 mg QAM PRN PO 06/15/17 19:45 07/15/17 19:44 06/16/17 08:32 10 MG Lorazepam (Ativan Tab) 0.5 mg TID PRN PO 06/15/17 19:45 07/15/17 19:44 Ranitidine HCl (zANTac TAB) 150 mg BID PO 06/15/17 21:00 07/15/17 20:59 06/17/17 20:45 150 MG Torsemide (Demadex Tab) 10 mg QAM PO 06/16/17 09:00 07/16/17 08:59 06/17/17 08:37 10 MG Calcium Acetate (Phoslo Cap) 667 mg TIDM PO 06/16/17 08:30 07/16/17 08:29 06/18/17 07:59 667 MG Cholecalciferol (Vitamin D Tab) 2,000 inter.unit QAM PO 06/16/17 09:00 07/16/17 08:59 06/17/17 08:38 2,000 INTER.UNIT Cyanocobalamin (Vitamin B-12 Tab) 1,000 mcg QAM PO 06/16/17 09:00 07/16/17 08:59 06/17/17 08:37 1,000 MCG Carvedilol (Coreg Tab) 50 mg BID PO 06/15/17 21:00 07/15/17 20:59 06/17/17 08:36 50 MG Atorvastatin Calcium (Lipitor Tab) 40 mg HS PO 06/15/17 21:00 07/15/17 20:59 06/17/17 20:45 40 MG Escitalopram Oxalate (Lexapro Tab) 20 mg HS PO 06/15/17 21:00 07/15/17 20:59 06/17/17 20:45 20 MG Miscellaneous Information 1 ea UD PRN N/A 06/16/17 10:30 07/16/17 10:29 Ceftriaxone Sodium 1 gm/ Dextrose 50 ml @ 100 mls/hr Q24H IV 06/16/17 11:00 06/26/17 10:59 06/17/17 14:21 100 MLS/HR Tramadol HCl (Ultram Tab) 50 mg Q12H PRN PO 06/16/17 14:30 07/16/17 14:29 Morphine Sulfate (MoRPHine SULFATE INJ) 4 mg Q4 PRN IV 06/17/17 12:45 07/01/17 12:44 Naloxone HCl (Narcan Inj) 0.4 mg Q1M PRN IV 06/17/17 12:45 07/17/17 12:44 Menthol (Nice Linwood) 1 linwood Q2H PRN PO 06/17/17 12:45 07/17/17 12:44 06/17/17 22:36 1 LINWOOD Warfarin Sodium (Coumadin Tab) 5 mg DAILY@16 PO 06/17/17 20:00 07/17/17 19:59 06/17/17 20:45 5 MG Insulin Aspart (novoLOG ASPART) SLIDING SCALE If C... ACHS SC 06/17/17 13:15 07/17/17 13:14 06/18/17 08:04 14 UNITS Insulin Glargine (Lantus Solostar Pen) 30 units HS SC 06/18/17 21:00 07/18/17 20:59 Last 24 Hours Test 06/17/17 13:00 06/17/17 17:04 06/17/17 20:53 06/17/17 23:35 Bedside Glucose 135 mg/dl 188 mg/dl 348 mg/dl 381 mg/dl Test 06/18/17 03:49 06/18/17 06:31 06/18/17 07:51 Bedside Glucose 274 mg/dl 282 mg/dl White Blood Count 14.66 K/uL Red Blood Count 2.94 M/uL Hemoglobin 9.5 g/dL Hematocrit 28.6 % Mean Corpuscular Volume 97.3 fL Mean Corpuscular Hemoglobin 32.3 pg Mean Corpuscular Hemoglobin Concent 33.2 g/dl RDW Standard Deviation 50.7 fL RDW Coefficient of Variation 14.3 % Platelet Count 114 K/uL Mean Platelet Volume 10.9 fL Prothrombin Time 12.0 SECONDS Prothromb Time International Ratio 1.1 Assessment & Plan ESRD-had dialysis on friday. usually t/h/s. electrolytes are stable. volume status acceptable. plan on dialysis again on . Access-will consult rosalind for possible fistulagram. hold on restarting coumadin. did get one dose last night.
[2017-06-18 09:03] LABS: CREATININE 5.81 mg/dl (0.60-1.20)
[2017-06-18 09:04] LABS: BUN/CREATININE RATIO 9.4 (10-20); CALCIUM 8.8 mg/dl (8.5-10.1); POTASSIUM 4.8 mmol/L (3.5-5.1)
--- NOTE | 2017-06-18 09:41 | Pharmacy Progress Note ---
Pharmacy Glycemic Short Note 2 Date of Service Jun 18, 2017. OUTPATIENT ANTIDIABETIC REGIMEN: * Lantus 24 units qHS * Novolog 12-14 units with meals ASSESSMENT: * Ms. Villar's BSGs have increased significantly over the past 24 hours. I suspect this is due to increased po intake and not enough carb coverage. * She received 56 units of insulin yesterday, including 16 units of correctional insulin overnight, with a fasting BSG of 298 mg/dL this AM * CF/CR just tightened last evening so I will continue with this for now * Since her outpatient regimen is ~60 units/day, will increase the current basal dose to be more of a 50/50 split. Will give extra this AM since we are dosing it in the evening. PLAN FOR INPATIENT GLYCEMIC CONTROL: * Increase Lantus to 30 units qHS, give 5 additional this AM for elevated fasting * Continue Novolog ACHS - will tighten parameters later today if BSGs do not improve * Goal 110-140 * CF 25 * CR 8 PLAN FOR DISCHARGE: * Continue outpatient regimen and f/u with [facility] clinic as appropriate
--- NOTE | 2017-06-18 10:05 | Surgery Consultation ---
Consultation Date of Service Jun 18, 2017. Chief Complaint ESRD on HD, LUE AVG History of Present Illness The patient is a 71 year old female with multiple medical problems, including ESRD on HD, admitted for L hip fx which underwent surgical repair yesterday in OR, seen in consultation today for LUE edema and difficulty with HD. Pt states she had L forearm AV graft placed at [place] by Dr العراقي about 4 months ago and has had edema in L arm since that time. Was scheduled to undergo fistulagram at [place], however, has difficulty with transportation there. Also noted to have L chest pacemaker/defibrillator. Denies LIMA, fever, chills, chest pain, SOB, abd pain, N/V, rest pain, claudication, other complaints. Vitals Vital Signs Past 12 Hours Date Time Temp Pulse Resp B/P (MAP) Pulse Ox O2 Delivery O2 Flow Rate FiO2 06/18/17 07:26 36.5 60 16 154/69 (97) 95 Room Air 06/18/17 06:38 36.7 60 18 136/70 (92) 97 Room Air 06/18/17 04:00 36.9 60 16 127/66 (86) 94 Room Air 06/18/17 00:10 Room Air 06/17/17 23:35 36.7 60 20 108/56 (73) 94 Room Air Allergies Coded Allergies: Adhesives (Verified Allergy, Unknown, RXN TO ADHESIVE ON NITRO PATCH, 06/15) [place] (Verified Allergy, Unknown, UNKNOWN, 06/15/17) DESIREE Inhibitors (Verified Adverse Reaction, Mild, COUGH, 06/15/17) CAUSES COUGH Diphenhydramine (Verified Adverse Reaction, Mild, VERY WEAK, CHF, 06/16/17) Lisinopril (Verified Adverse Reaction, Mild, COUGH, 06/15/17) Nitroglycerin (Verified Adverse Reaction, Mild, HEADACHE/NAUSEA, 06/15/17) Sulfa Antibiotics (Verified Adverse Reaction, Mild, "KNOCKS ME OUT", ) Amlodipine (Verified Adverse Reaction, Unknown, RETAIN FLUID , 06/17/17) Home Medications Scheduled Amiodarone HCl (Amiodarone HCl), 200 MG PO QAM Aspirin (Aspirin Ec), 81 MG PO QAM Atorvastatin (Atorvastatin Calcium), 40 MG PO DAILY Calcium Acetate (Phosphate Bin (Calcium Acetate), 1 TAB PO TIDM Carvedilol (Coreg), 50 MG PO BIDM Cholecalciferol (Vitamin D3), 2,000 INTER.UNIT PO QAM Cyanocobalamin (Vitamin B12), 1,000 MCG PO QAM Escitalopram Oxalate (Lexapro), 1 TAB PO DAILY Insulin Aspart (Novolog Flexpen), 12-14 UNITS SC TIDM Insulin Glargine (Lantus Solostar), 24 UNITS SQ HS Multiple Vitamins W/ Minerals (Womens Multi Vitamin & Mi), 1 TAB PO DAILY Probiotic Product (Probiotic), 1 TAB PO QAM Pyridoxine (Vitamin B6), 100 MG PO DAILY Ranitidine HCl (Ranitidine HCl), 150 MG PO BID Torsemide (Torsemide), 10 MG PO QAM Warfarin Sodium (Warfarin Sodium), 4 MG PO [id number] Warfarin Sodium (Warfarin Sodium), 6 MG PO WK Scheduled PRN Acetaminophen (Tylenol), 500 MG PO UD PRN for Pain or Fever Loratadine (Claritin), 10 MG PO QAM PRN for Allergy Symptoms Lorazepam (Ativan), 0.5 MG PO TID PRN for Anxiety/Agitation Problem List Medical Problems: (1) MARGOT (acute kidney injury) (2) Allergic rhinitis (3) Anemia (4) Anxiety (5) Atrial fibrillation (6) AV graft malfunction (7) Bacteremia (8) Biventricular ICD (implantable cardioverter-defibrillator) in place (9) Cardiomegaly (10) CHF NYHA class III (11) Chronic kidney disease stage 3 (12) Degenerative cervical disc (13) Depression (14) Depressive disorder (15) Diabetes mellitus type 2 (16) Dyslipidemia (17) Elevated troponin (18) ESRD (end stage renal disease) on dialysis (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 (20) Gastroesophageal reflux disease (21) Gram-positive bacteremia (22) H/O TIA (transient ischemic attack) and stroke (23) Heart failure (24) Hematoma of arm (25) Hip fracture, left (26) Hip fracture, left (27) Hyperparathyroidism (28) Hypertensive urgency (29) Hypertensive urgency (30) Hypertensive urgency (31) Hysterectomy (32) ICD (33) Left bundle branch block (34) emt intermediate (current) use of 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 (35) Pericardial effusion (36) Proteinuria (37) PVD (peripheral vascular disease) (38) Slow transit constipation (39) Weakness Surgical Problems: (1) H/O dilation and curettage (2) S/P appy (3) S/P pericardial surgery Surgical / Medical History Hx Cardiac Surgery: Yes (HEART CATH (AT LEAST 2 TIMES)-NO STENTS) Hx Abdominal Surgery: Yes (APPY, PARTIAL HYSTERECTOMY, D&C) Hx Cancer Surgery: No Hx Thoracic Surgery: Yes (PERICARDIAL WINDOW (INCISION OF HEART SAC FOR FLUID IN HEART)) Hx Orthopedic: No Hx Urinary Tract Surgery: No Past Medical/Surgical History: CHF, Diabetes, Heart Disease, High Cholesterol, Hypertension, Kidney Disease Family History Diabetes mellitus Heart disease Social History Smoking Status: Never Smoker Hx Tobacco Use In Past Year?: No Hx Alcohol Use - Type & Amnt: No Hx Substance Use -Type & Amnt: No Review of Systems Constitutional: No chills, No fever, No malaise Skin: No change in color Eyes: No visual changes ENMT: No throat swelling Respiratory: No HARRIS, No hemoptysis, No short of breath Cardiovascular: + edema (L arm), No chest pain, No palpitations, No syncope, No intermittent claudication Gastrointestinal: No abdominal pain, No diarrhea, No nausea, No vomiting Genitourinary - Female: No dysuria, No hematuria Neurologic: No headache, No lethargy Physical Exam Constitutional: General Apperance: well-nourished, well-developed Level of Distress: NAD, chronically ill Psychiatric: Mental Status: active & alert, normal mood, normal affect Orientation: oriented except where noted, to time, to place, to person Memory: recent memory normal, remote memory normal Head: normocephalic, atraumatic Eyes: EOM: EOMI ENMT: normal ENT inspection, hearing grossly normal Neck: supple, trachea midline Lungs: Respiratory effort: no dyspnea Auscultation: no rales/crackles, no rhonchi Cardiovascular: Apical Impulse: not displaced Heart Auscultation: no rubs, no gallops, pertinent finding (irregular) Peripheral Pulses: Pulses: full and equal, in all extremities except if noted Bruits: none appreciated, pertinent finding (L forearm AV graft with + thrill/bruit, weaker than vein AVF d/t it being a graft) Carotid Pulse: normal on the left, normal on the right Brachial Pulses: normal on the left, normal on the right Radial Pulse: normal on the left, normal on the right Femoral Pulse: pertinent finding (Not checked d/t recent L hip surgery and sitting in chair) Posterior Tibialis Pulse: decreased on the left, decreased on the right Dorsalis Pedis Pulse: decreased on the left, decreased on the right Abdomen: Bowel Sounds: normal Inspection & Palpation: soft, non-distended, no tenderness, guarding & rebound Musculoskeletal: normal strength (5/5 throughout), normal tone Extremities: Upper Right: no cyanosis, no edema, no varicosities Upper Left: no cyanosis, no varicosities, no palpable cord, edema Lower Right: no cyanosis, no varicosities, no palpable cord Lower Left: no cyanosis, no varicosities, no palpable cord, edema Neurologic: Cranial Nerves: grossly intact Sensation: grossly intact Assessment and Plan ASSESSMENT and PLAN: ESRD on HD L arm edema/ L forearm AV graft Pt for fistulagram by Dr De La Paz, timing TBD. Could possibly have central venous stenosis contributing to the edema. Per pt, has already undergone unsuccessful AVF creation in past in R arm as well as L upper arm.
[2017-06-18] MEDS: CEFTRIAXONE SOD INJ 1000 MG in DEXTROSE 5% 50ML IV SCH (10:40)
--- NOTE | 2017-06-18 14:23 | Anesthesiology Progress Note ---
Anesthesia Post Op Note Date & Time Jun 18, 2017 at 14:22 Vital Signs Vital Signs Past 12 Hours Date Time Temp Pulse Resp B/P (MAP) Pulse Ox O2 Delivery O2 Flow Rate FiO2 06/18/17 07:50 Room Air 06/18/17 07:26 36.5 60 16 154/69 (97) 95 Room Air 06/18/17 06:38 36.7 60 18 136/70 (92) 97 Room Air 06/18/17 04:00 36.9 60 16 127/66 (86) 94 Room Air Notes Mental Status: alert / awake / arousable, participated in evaluation Pt Amnestic to Procedure: Yes Nausea / Vomiting: adequately controlled Pain: adequately controlled Airway Patency, RR, SpO2: stable & adequate BP & HR: stable & adequate Hydration State: stable & adequate Neuraxial Anesthesia: was administered, sensory block resolved Anesthetic Complications: no major complications apparent
[2017-06-18 15:36] VITALS: BP 119/64; PULSE 66; TEMP 36.7; O2SAT 96
--- NOTE | 2017-06-18 15:39 | Cardiology Follow-Up ---
Subjective General Date of Service: Jun 18, 2017. Chief Complaint: gross hematuria Pt evaluation today including: conversation w/ patient, physical exam, chart review, lab review, review of studies, review of inpatient medication list History of Present Illness The patient is a 71 year old female seen in follow-up. Left upper extremity swelling noted. Patient was seen by vascular surgery earlier today regarding fistulogram. Denies chest pain or shortness of breath. Hip pain is controlled. Offers no other complaints at this time. Allergies Coded Allergies: Adhesives (Verified Allergy, Unknown, RXN TO ADHESIVE ON NITRO PATCH, 06/15) [place] (Verified Allergy, Unknown, UNKNOWN, 06/15/17) DESIREE Inhibitors (Verified Adverse Reaction, Mild, COUGH, 06/15/17) CAUSES COUGH Diphenhydramine (Verified Adverse Reaction, Mild, VERY WEAK, CHF, 06/16/17) Lisinopril (Verified Adverse Reaction, Mild, COUGH, 06/15/17) Nitroglycerin (Verified Adverse Reaction, Mild, HEADACHE/NAUSEA, 06/15/17) Sulfa Antibiotics (Verified Adverse Reaction, Mild, "KNOCKS ME OUT", ) Amlodipine (Verified Adverse Reaction, Unknown, RETAIN FLUID , 06/17/17) Social History Smoking Status: Never Smoker Hx Tobacco Use In Past Year?: No Hx Alcohol Use - Type And Amou: No Hx Substance Use - Type And Am: No Problem List Medical Problems: (1) Acute renal failure Status: Acute (2) Anticoagulated on Coumadin Status: Acute (3) Anticoagulated on Coumadin Status: Acute (4) CKD (chronic kidney disease) Status: Acute (5) Concussion Status: Acute (6) Dehydration Status: Acute (7) ESRD (end stage renal disease) Status: Acute (8) Fall Status: Acute (9) Febrile illness Status: Acute (10) Forehead contusion Status: Acute (11) Head pain Status: Acute (12) Headache Status: Acute (13) Hyperglycemia Status: Acute (14) Hyperglycemia Status: Acute (15) Hyperglycemia Status: Acute (16) Malignant hypertension Status: Acute (17) Right arm cellulitis Status: Acute (18) Vomiting Status: Acute (19) Weakness Status: Acute (20) Weakness Status: Acute (21) Worsening renal function Status: Acute Review of Systems Respiratory: No cough, No sputum, No wheezing, No shortness of breath, No dyspnea on exertion, No dyspnea at rest, No hemoptysis Cardiac: + edema, No chest pain, No orthopnea, No PND, No claudication, No palpitations Physical Exam Vital Signs Last Vital Signs Documentation Date Time Temp Pulse Resp B/P (MAP) Pulse Ox O2 Delivery O2 Flow Rate FiO2 06/18/17 07:50 Room Air 06/18/17 07:26 36.5 60 16 154/69 (97) 95 06/17/17 17:00 2.0 Physical Exam Constitutional: General Apperance: well-nourished, well-developed Level of Distress: NAD, chronically ill Psychiatric: Mental Status: active & alert, normal mood, normal affect Orientation: oriented except where noted, to time, to place, to person Memory: recent memory normal, remote memory normal Head: normocephalic, atraumatic Eyes: EOM: EOMI Neck: supple, trachea midline Lungs: Respiratory effort: no dyspnea Auscultation: no rales/crackles, no rhonchi Cardiovascular: Apical Impulse: not displaced Peripheral Pulses: Bruits: none appreciated, pertinent finding (L forearm AV graft with + thrill/bruit, weaker than vein AVF d/t it being a graft) Carotid Pulse: normal on the left, normal on the right Radial Pulse: normal on the left, normal on the right Femoral Pulse: pertinent finding (Not checked d/t recent L hip surgery and sitting in chair) Dorsalis Pedis Pulse: decreased on the left, decreased on the right Abdomen: Bowel Sounds: normal Inspection & Palpation: soft, non-distended, no tenderness, guarding & rebound Musculoskeletal: normal strength (5/5 throughout), normal tone Extremities: edema (left upper extremity edema. No palpable thrill) Neurologic: Cranial Nerves: grossly intact Sensation: grossly intact Assessment and Plan Assessment and Plan FINAL IMPRESSION: 1. Postoperative day 1, left hip open reduction and internal fixation. 2. Chronic compensated heart failure with mild left ventricular systolic dysfunction. 3. Paroxysmal atrial fibrillation maintained in sinus rhythm on amiodarone and chronically anticoagulated with warfarin. -Coumadin on hold pending fistulogram tomorrow 4. History of normal epicardial coronary arteries 5. History of pericardial effusion status post window in 2015. 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 6. Labile hypertension -- controlled. 7. End-stage renal disease on hemodialysis followed by Dr. Marie. PLAN AND RECOMMENDATIONS: Coumadin will remain on hold pending vascular surgery recommendations. Resume Coumadin when able. No need for heparin or Lovenox bridging at this time. Continue other cardiovascular medications as listed above. PT/OT as tolerated. Will continue to follow during hospitalization. Laboratory Results Last 24 Hours Test 06/17/17 17:04 06/17/17 20:53 06/17/17 23:35 06/18/17 03:49 Bedside Glucose 188 mg/dl 348 mg/dl 381 mg/dl 274 mg/dl Test 06/18/17 06:31 06/18/17 07:51 Bedside Glucose 282 mg/dl White Blood Count 14.66 K/uL Red Blood Count 2.94 M/uL Hemoglobin 9.5 g/dL Hematocrit 28.6 % Mean Corpuscular Volume 97.3 fL Mean Corpuscular Hemoglobin 32.3 pg Mean Corpuscular Hemoglobin Concent 33.2 g/dl RDW Standard Deviation 50.7 fL RDW Coefficient of Variation 14.3 % Platelet Count 114 K/uL Mean Platelet Volume 10.9 fL Prothrombin Time 12.0 SECONDS Prothromb Time International Ratio 1.1 Sodium Level 126 mmol/L Potassium Level 4.8 mmol/L Chloride Level 94 mmol/L Carbon Dioxide Level 20 mmol/L Anion Gap 12.0 mmol/L Blood Urea Nitrogen 54 mg/dl Creatinine 5.81 mg/dl Est Creatinine Clear Calc Drug Dose 8.4 ml/min Estimated GFR () 7.8 Estimated GFR (Non- 6.7 BUN/Creatinine Ratio 9.4 Random Glucose 298 mg/dl Calcium Level 8.8 mg/dl
[2017-06-18] MEDS ORDERED: INSULIN GLARGINE SOLOSTAR 100 UNITS/ML 3 ML PEN SC SCH ×2 (17:15→21:00)
--- NOTE | 2017-06-18 20:08 | Progress Note ---
Medicine Progress Note Date & Time of Visit: Jun 18, 2017 at 19:55. Subjective Pt was seen and examined Lying in bed with no distress Pt said that she feels good Denies any chest pain, palpitation, dizziness and SOB Objective Last 8 Hrs Date Time Temp Pulse Resp B/P (MAP) Pulse Ox O2 Delivery O2 Flow Rate FiO2 06/18/17 15:36 36.7 66 16 119/64 (82) 96 Room Air Physical Exam: General- No acute distress Head- atraumatic Eyes- PERRL, EOMI ENT- oropharynx Neck- supple, no JVD Lungs-No wheezing Heart- regular rhythm; +murmur Abdomen- normal bowel sounds, soft Extremities- no calf tenderness Neuro- alert, oriented x 3; PERRL, EOMI Skin- warm & dry Laboratory Results: Last 24 Hours Test 06/17/17 20:53 06/17/17 23:35 06/18/17 03:49 06/18/17 06:31 Bedside Glucose 348 mg/dl 381 mg/dl 274 mg/dl 282 mg/dl Test 06/18/17 07:51 06/18/17 12:09 06/18/17 17:00 White Blood Count 14.66 K/uL Red Blood Count 2.94 M/uL Hemoglobin 9.5 g/dL Hematocrit 28.6 % Mean Corpuscular Volume 97.3 fL Mean Corpuscular Hemoglobin 32.3 pg Mean Corpuscular Hemoglobin Concent 33.2 g/dl RDW Standard Deviation 50.7 fL RDW Coefficient of Variation 14.3 % Platelet Count 114 K/uL Mean Platelet Volume 10.9 fL Prothrombin Time 12.0 SECONDS Prothromb Time International Ratio 1.1 Sodium Level 126 mmol/L Potassium Level 4.8 mmol/L Chloride Level 94 mmol/L Carbon Dioxide Level 20 mmol/L Anion Gap 12.0 mmol/L Blood Urea Nitrogen 54 mg/dl Creatinine 5.81 mg/dl Est Creatinine Clear Calc Drug Dose 8.4 ml/min Estimated GFR () 7.8 Estimated GFR (Non- 6.7 BUN/Creatinine Ratio 9.4 Random Glucose 298 mg/dl Calcium Level 8.8 mg/dl Bedside Glucose 365 mg/dl 315 mg/dl Assessment & Plan 71 yo F with multiple chronic medical problems presents with L hip fracture s/p mechanical fall at home. Left Hip fracture Pelvis xray showed Impacted subcapital fracture due to mechanical fall Was medically cleared by Cardio S/P day 1 Left hip hemiarthroplasty, cemented, with cable Ortho on board Pain control Hbg stable Monitor H/H Incentive spirometry Will need placement PT/OT A fib Rate is controlled Coumadin on hold for the fistulogram Continue coreg and amiodarone stable ESRD ON HD Had HD done on Friday Plan to get HD tomorrow Vascular on board Scheduled for Fistulogram on 06/20 in [facility] Plan to have Fistulogram during this admission DM 2 Recent Hba1c 8 on 06/16 Elevated BS Lantus increase to 30 units Insulin coverage continue monitor BS Gross hematuria poss 2/2 infection vs stone vs malignancy as a few possible causes. Urology on board Recommended to D/C Sher aviva Will need a cysto in about 3 moths once stable UTI Urine cx grew Ecoli Received IV Ceftriaxone On Ancef now Afebrile, No leukocytosis Depression On Lexapro 20mg stable Anemia of chronic disease hgb stable Continue monitor cbc DVT px SCDs Coumadin on hold Consider to start on subq heparin Full Code Disposition Will need Rehab when cleared medically and by Ortho Consultants: Ortho Cardio Current Inpatient Medications: Current Inpatient Medications Medications (Trade) Dose Ordered Sig/Rayna Route Start Time Stop Time Status Last Admin Dose Admin Miscellaneous Information (Consult Glycemic Management Pharmacy) 1 ea UD PRN N/A 06/15/17 18:56 07/15/17 18:55 Ondansetron HCl (Zofran Inj) 4 mg Q6H PRN IV 06/15/17 19:15 07/15/17 19:14 Acetaminophen (Tylenol Tab) 650 mg Q6H PRN PO 06/15/17 19:15 07/15/17 19:14 06/18/17 08:36 650 MG Oxycodone HCl (Roxicodone Immediate Rel Tab) 5 mg Q4H PRN PO 06/15/17 19:15 06/29/17 19:14 Senna/Docusate Sodium (Senokot S Tab) 2 tab HS PO 06/15/17 21:00 07/15/17 20:59 06/17/17 20:45 2 TAB Polyethylene (Miralax Powder Packet) 17 gm DAILY PRN PO 06/15/17 19:15 07/15/17 19:14 Bisacodyl (Dulcolax Supp) 10 mg DAILY PRN IA 06/15/17 19:15 07/15/17 19:14 Glucose (Glucose 40% Gel) 15-30 GRAMS 15 GRAMS... UD PRN PO 06/15/17 19:30 07/15/17 19:29 Glucose (Glucose Chew Tab) 4-8 Tablets 4 Tabl... UD PRN PO 06/15/17 19:30 07/15/17 19:29 Dextrose (Dextrose 50% 50ML Syringe) 25-50ML OF 50% DW IV FOR... UD PRN IV 06/15/17 19:30 07/15/17 19:29 Glucagon (Glucagon Inj) 1 mg UD PRN SQ 06/15/17 19:30 07/15/17 19:29 Amiodarone HCl (Cordarone Tab) 200 mg QAM PO 06/16/17 09:00 07/16/17 08:59 06/18/17 08:31 200 MG Loratadine (Claritin Tab) 10 mg QAM PRN PO 06/15/17 19:45 07/15/17 19:44 06/16/17 08:32 10 MG Lorazepam (Ativan Tab) 0.5 mg TID PRN PO 06/15/17 19:45 07/15/17 19:44 Ranitidine HCl (zANTac TAB) 150 mg BID PO 06/15/17 21:00 07/15/17 20:59 06/18/17 08:33 150 MG Torsemide (Demadex Tab) 10 mg QAM PO 06/16/17 09:00 07/16/17 08:59 06/18/17 08:32 10 MG Calcium Acetate (Phoslo Cap) 667 mg TIDM PO 06/16/17 08:30 07/16/17 08:29 06/18/17 17:56 667 MG Cholecalciferol (Vitamin D Tab) 2,000 inter.unit QAM PO 06/16/17 09:00 07/16/17 08:59 06/18/17 08:33 2,000 INTER.UNIT Cyanocobalamin (Vitamin B-12 Tab) 1,000 mcg QAM PO 06/16/17 09:00 07/16/17 08:59 06/18/17 08:33 1,000 MCG Carvedilol (Coreg Tab) 50 mg BID PO 06/15/17 21:00 07/15/17 20:59 06/18/17 08:32 50 MG Atorvastatin Calcium (Lipitor Tab) 40 mg HS PO 06/15/17 21:00 07/15/17 20:59 06/17/17 20:45 40 MG Escitalopram Oxalate (Lexapro Tab) 20 mg HS PO 06/15/17 21:00 07/15/17 20:59 06/17/17 20:45 20 MG Miscellaneous Information 1 ea UD PRN N/A 06/16/17 10:30 07/16/17 10:29 Ceftriaxone Sodium 1 gm/ Dextrose 50 ml @ 100 mls/hr Q24H IV 06/16/17 11:00 06/26/17 10:59 06/18/17 10:40 100 MLS/HR Tramadol HCl (Ultram Tab) 50 mg Q12H PRN PO 06/16/17 14:30 07/16/17 14:29 Morphine Sulfate (MoRPHine SULFATE INJ) 4 mg Q4 PRN IV 06/17/17 12:45 07/01/17 12:44 Naloxone HCl (Narcan Inj) 0.4 mg Q1M PRN IV 06/17/17 12:45 07/17/17 12:44 Menthol ([place]) 1 [place] Q2H PRN PO 06/17/17 12:45 07/17/17 12:44 06/17/17 22:36 1 LINWOOD Insulin Aspart (novoLOG ASPART) SLIDING SCALE If C... ACHS SC 06/17/17 13:15 07/17/17 13:14 06/18/17 19:38 23 UNITS Cefazolin Sodium 5 ml @ 1.667 mls/ min PREOP IV 06/19/17 06:00 06/19/17 18:00 Insulin Glargine (Lantus Solostar Pen) 30 units HS SC 06/18/17 17:15 07/18/17 17:14 06/18/17 17:56 30 UNITS
[2017-06-18] MEDS: DOCUSATE SODIUM/SENNA 50/8.6MG TAB PO SCH (21:00)
[2017-06-18 22:06] VITALS: BP 128/66; PULSE 62
[2017-06-18] MEDS: ESCITALOPRAM OXALATE 20 MG TAB PO SCH (22:11)
[2017-06-18] MEDS: ATORVASTATIN 40 MG TAB PO SCH (22:11)
[2017-06-18 23:04] VITALS: BP 122/67; PULSE 59; TEMP 36.8; O2SAT 95
[2017-06-19] VITALS (19 sets, daily range): BP systolic 114–152; BP diastolic 40–74; PULSE 60–68; TEMP 36.5–37.5; O2SAT 93–95; BMI 29.2
[2017-06-19] MEDS ORDERED: INSULIN ASPART 100 UNITS/ML 3 ML PEN SC SCH
[2017-06-19] MEDS: MoRPHine SULFATE 4 MG/ML 1 ML CARP\\VIAL IV PRN (05:27)
[2017-06-19] MEDS ORDERED: CEFAZOLIN 1000MG IV PUSH 5 ML IV SCH (06:00)
[2017-06-19] MEDS: INSULIN ASPART 100 UNITS/ML 3 ML PEN SC SCH ×4 (06:00→21:00)
[2017-06-19 06:09] LABS: HEMATOCRIT 26.3 % (37-47); MEAN CORPUSCULAR HEMOGLOBIN 32.8 pg (25-34); MEAN CORPUSCULAR HGB CONC 34.2 g/dl (32-36); RED BLOOD COUNT 2.74 M/uL (4.2-5.4)
[2017-06-19 06:22] LABS: INR 1.4 (0.9-1.1); PROTHROMBIN TIME (PATIENT) 14.3 SECONDS (9.0-12.0)
[2017-06-19 06:45] LABS: MEAN PLATELET VOLUME 11.1 fL (7.4-10.4); PLATELET COUNT 96 K/uL (130-400)
[2017-06-19 07:10] LABS: BUN/CREATININE RATIO 10.9 (10-20); CALCIUM 8.6 mg/dl (8.5-10.1); CREATININE 6.41 mg/dl (0.60-1.20); POTASSIUM 4.3 mmol/L (3.5-5.1)
--- NOTE | 2017-06-19 07:44 | Orthopedic Progress Note ---
Orthopedic Progress Note Date of Service Jun 19, 2017. Subjective Additional Notes: Patient seen at bedside, comfortable, had complaints of acid reflux this morning. Currently denies symptoms, denies CP/SOB/F/Chills/N/V Objective NAD, AO x3 LLE NVSI +EHL/FHL/TA/GS SILT grossly, CR< 2 seconds, compartments soft NT, dressing cdi Date Time Temp Pulse Resp B/P (MAP) Pulse Ox O2 Delivery O2 Flow Rate FiO2 06/19/17 00:23 Room Air 06/18/17 23:04 36.8 59 16 122/67 (85) 95 Room Air 06/18/17 22:06 62 128/66 (86) 06/18/17 16:30 Room Air 06/18/17 15:36 36.7 66 16 119/64 (82) 96 Room Air 06/18/17 07:50 Room Air Laboratory Results 24 Hours: Test 06/18/17 07:51 06/19/17 05:57 Hematocrit 28.6 % 26.3 % Hemoglobin 9.5 g/dL 9.0 g/dL Prothromb Time International Ratio 1.1 1.4 Prothrombin Time 12.0 SECONDS 14.3 SECONDS Assessment & Plan Assessment: s/p Left Hip Hemiarthroplasty for Left displaced femoral neck fracture Plan: -Dressing change today -Restart patient's home dose Warfarin for DVT PPX -Pain controlled -WBAT LLE -Posterior hip precautions -PT/OT -Am labs
[2017-06-19] MEDS: CYANOCOBALAMIN 500 MCG TAB (VIT B-12) PO SCH (07:55)
[2017-06-19] MEDS: CHOLECALCIFEROL 1000 INTER.UNIT TAB PO SCH (07:56)
[2017-06-19] MEDS: RANITIDINE HCL 150 MG TAB PO SCH ×2 (07:56→21:12)
[2017-06-19] MEDS: AMIODARONE 200 MG TAB PO SCH (07:57)
[2017-06-19] MEDS: CALCIUM ACETATE 667MG GELCAP PO SCH ×3 (07:59→18:31)
[2017-06-19] MEDS ORDERED: EPOETIN ALFA 10,000 UNITS/ML VIAL IV. ONE (09:00)
--- NOTE | 2017-06-19 09:00 | Consultant Recommendations ---
Overlock Elastic Attacher Recommendations Date of Service Jun 19, 2017. Overlock Elastic Attacher Recommendations ACTIVITY RECOMMENDATIONS: SELF CARE INSTRUCTIONS AFTER BIPOLAR HEMIARTHROPLASTY HIP REPLACEMENT Until the incision and soft tissues around your hip have healed, there is a possibility that the hip prosthesis could dislocate. A. Observe the following precautions to prevent dislocation: 1. Don't bend your hip greater than 90 degrees. 2. Avoid crossing your legs or ankles while standing or lying. 3. Sit with your feet placed 6 inches apart. 4. When sitting, keep your knees below your hips. Sit on a firm surface, avoid deep, soft chairs and couches. Use an elevated toilet seat in the bathroom. 5. Don't bend over at the waist. Use a long handled shoehorn and a sock aid to help you put on your shoes and socks. A administrative assistant receptionist can help you leaf size picker objects that are too high or too low to reach. 6. Keep car riding to a minimum for at least one month after surgery. B. Your balance may be shaky for a while. Use crutches or a walker until directed by your doctor. C. Use hand rails when walking on stairs. D. Wear low heeled shoes with non-slip soles. E. Be sure that your floors are free of things that could trip you - throw rugs , electrical cords, small objects. Avoid wet and waxed floors, especially with crutches and canes. F. Try to walk several times a day with rest periods between. G. Continue with all the exercises taught to you in the hospital. Again, make walking a part of your daily routine. SPECIAL CARE INSTRUCTIONS: VERY IMPORTANT TO READ AND REVIEW A. You may still be at risk for phlebitis and blood clots. 1. Wear surgical stockings (JENNIE hose) for 2 weeks after surgery to improve circulation and reduce swelling. 2. Take Aspirin 81mg twice daily for 4 weeks or as directed by your doctor. This is your blood thinner. 3. High risk patients may be prescribed a stronger blood thinner if necessary. 4. If you are on Coumadin normally, your family doctor/humidifier maintenance worker should monitor your blood work. Expect a phone call the day of or the day after bloodwork is drawn to adjust your dosage. B. You must take antibiotics before having dental work, bladder, bowel and other surgery. Your doctor will provide you with a permanent card to carry describing precautions. C. Call [facility] if you have a fever, redness or swelling around the incision, cloudy drainage from incision, or sudden increase in pain in your hip, not relieved by your regular pain medication. D. Please call the office at if you have any concerns or questions about your operation or recovery. * YOU MAY SHOWER, NO TUB BATHS UNTIL CLEARED BY YOUR DOCTOR. * WEAR JENNIE HOSE 20 HOURS PER DAY FOR 2 WEEKS. * YOU SHOULD USE A WALKER OR CRUTCHES FOR 2-4 WEEKS. THIS WILL HELP PREVENT STRAIN ON YOUR HIP MUSCLE AND ALLOW IT TO HEAL PROPERLY. YOU MAY WEAN TO A CANE TOLERATED. * MOST PATIENTS WILL HAVE HOME NURSING FOR THERAPY. IF YOU DECIDE TO DO OUTPATIENT PHYSICAL THERAPY, PLEASE SCHEDULE THIS 3 TIMES PER WEEK. * CHANGE DRESSING DAILY. KEEP WOUND COVERED UNTIL SEEN BACK IN THE OFFICE. CALL WITH ANY QUESTIONS ABOUT THE WOUND . FOLLOW UP VISIT: If appointment is not already scheduled: Please call [facility] to make a follow-up appointment for 2 weeks after your surgery at .
--- NOTE | 2017-06-19 10:20 | Pharmacy Progress Note ---
Pharmacy Glycemic Short Note 2 Date of Service Jun 19, 2017. OUTPATIENT ANTIDIABETIC REGIMEN: * Lantus 24 units qHS * Novolog 12-14 units with meals ASSESSMENT: 06/18/17 * Ms. Villar's BSGs have increased significantly over the past 24 hours. I suspect this is due to increased po intake and not enough carb coverage. * She received 56 units of insulin yesterday, including 16 units of correctional insulin overnight, with a fasting BSG of 298 mg/dL this AM * CF/CR just tightened last evening so I will continue with this for now * Since her outpatient regimen is ~60 units/day, will increase the current basal dose to be more of a 50/50 split. Will give extra this AM since we are dosing it in the evening. 06/19/17 * Ms. Villar received 105 units of insulin yesterday with BSGs improving significantly this AM, however, she is now NPO for a fistulogram * I believe her BSGs were so elevated yesterday because her po intake had improved and she was just not getting enough prandial coverage * Anticipating TDD is about 60-75 units/day - similar to her outpatient TDD * Will plan to continue the tightened CF/CR but order a smaller dose of Lantus tonight if BSGs are below goal, in case her being NPO and having dialysis today lowers her BSGs PLAN FOR INPATIENT GLYCEMIC CONTROL: * Continue Lantus 30 units qHS (25 units if BSG less than 140) * Continue Novolog q6h or ACHS once eating * Goal 110-140 * CF 10 * CR 4
--- NOTE | 2017-06-19 10:26 | Procedure Note ---
Pre-Mod Sedation Assessment General Date of Moderate Sedation: Jun 19, 2017. Vital Signs: Vital Signs Past 12 Hours Date Time Temp Pulse Resp B/P (MAP) Pulse Ox O2 Delivery O2 Flow Rate FiO2 06/19/17 10:15 60 135/62 06/19/17 10:00 60 142/59 06/19/17 09:45 60 131/60 06/19/17 09:30 60 125/57 06/19/17 09:15 60 125/55 06/19/17 09:00 60 130/53 06/19/17 08:45 60 123/58 06/19/17 08:37 60 136/66 06/19/17 08:30 37.1 63 140/65 (90) 06/19/17 07:45 36.8 62 16 130/69 (89) 93 Room Air 06/19/17 00:23 Room Air 06/18/17 23:04 36.8 59 16 122/67 (85) 95 Room Air Pre-Sedation Airway Assessment Oral Cavity: Dentures Smoking Status: Never Smoker Mallampati Classification: Class I ASA Classification: Class III Notes The planned sedation has been discussed with the patient and consent obtained. I have identified the patient, determined the appropriateness of sedation and have assessed the patient immediately prior to the procedure. All medicine(s) and interventions are by my order.
--- NOTE | 2017-06-19 10:26 | Progress Note ---
Progress Note Date of Service Jun 19, 2017. Progress Note Patient for fistulogram with possible intervention today. I have discussed the risks options and benefits of the procedure with the patient. The patient understands the risks options and benefits and agrees to the procedure. I have examined the patient, reviewed the History & Physical and in the interval since the performance of the History & Physical I have noted the following changes of clinical significance: No changes noted
[2017-06-19] MEDS ORDERED: CEFAZOLIN IV 1,000 MG in DEXTROSE 5% 50ML 50 ML IV ONE (12:00)
[2017-06-19] MEDS: CEFTRIAXONE SOD INJ 1000 MG in DEXTROSE 5% 50ML IV SCH (12:08)
[2017-06-19] MEDS: TORSEMIDE 20 MG TAB PO SCH (12:14)
[2017-06-19] MEDS: CARVEDILOL 25 MG TAB PO SCH ×2 (12:15→21:12)
--- NOTE | 2017-06-19 13:15 | Procedure Note ---
Pre-Mod Sedation Assessment General Date of Moderate Sedation: Jun 19, 2017. Vital Signs: Vital Signs Past 12 Hours Date Time Temp Pulse Resp B/P (MAP) Pulse Ox O2 Delivery O2 Flow Rate FiO2 06/19/17 12:00 36.7 68 18 144/74 (97) 94 Room Air 06/19/17 11:56 37.1 60 152/62 (92) 06/19/17 11:15 61 147/61 06/19/17 11:00 61 143/63 06/19/17 10:45 60 132/40 06/19/17 10:30 60 143/63 06/19/17 10:15 60 135/62 06/19/17 10:00 60 142/59 06/19/17 09:45 60 131/60 06/19/17 09:30 60 125/57 06/19/17 09:15 60 125/55 06/19/17 09:00 60 130/53 06/19/17 08:45 60 123/58 06/19/17 08:37 60 136/66 06/19/17 08:30 37.1 63 140/65 (90) 06/19/17 07:50 Room Air 06/19/17 07:45 36.8 62 16 130/69 (89) 93 Room Air Pre-Sedation Airway Assessment Oral Cavity: Dentures Smoking Status: Never Smoker Mallampati Classification: Class I ASA Classification: Class III Notes The planned sedation has been discussed with the patient and consent obtained. I have identified the patient, determined the appropriateness of sedation and have assessed the patient immediately prior to the procedure. All medicine(s) and interventions are by my order.
[2017-06-19] MEDS ORDERED: FENTANYL CITRATE INJ 50 MCG/1 ML 2 ML VIAL ONE (13:39)
[2017-06-19] MEDS ORDERED: MIDAZOLAM HCL 1 MG/ML 2ML VIAL ONE (13:39)
[2017-06-19] MEDS ORDERED: LIDOCAINE HCL 1% 20 ML VIAL INJ ONE (14:12)
[2017-06-19] MEDS ORDERED: FENTANYL CITRATE INJ 50 MCG/1 ML 2 ML VIAL IV ONE (14:23)
--- NOTE | 2017-06-19 15:22 | [facility] Operative Report ---
Operative Report Operative Date Jun 19, 2017. Pre-Operative Diagnosis Malfunctioning Fistula Post-Operative Diagnosis Same Procedure(s) Performed Fistulogram Percutaneous Transluminal Angioplasty Central Venous 6x8 and 7x8 Percutaneous Transluminal Angioplasty Peripheral Venous 7x8 Surgeon Malcom Chipping Machine Operator Surgeon(s) None Estimated Blood Loss 3 Findings stenosis of venous anastomosis and occluded subclavian and innominate veins Specimens None Anesthesia Local Complication(s) None Disposition Indications This is a 71-year-old female had a left forearm loop fistula created. She developed swelling of the entire left arm. She does have an ACD and PermCath on the left side. A fistulogram and intervention was recommended. I have discussed the risks options and benefits of the procedure with the patient. The patient understands the risks options and benefits and agrees to the procedure. Description of Procedure The patient was taken to the angiogram suite and placed in the supine position. The left arm was then prepped and draped in a sterile manner. Local anesthetic was administered and a percutaneous puncture was then made of the proximal portion of the left arm AV fistula using micropuncture technique. Micropuncture wire and sheath were then inserted. A fistulogram was then performed. Fistulogram showed a tight stenosis at the venous anastomosis of the forearm loop fistula. There is also occlusion of the subclavian and innominate vein at the entrance site of the PermCath and leads for the ACD. We then placed a wire and exchanged the micropuncture sheath to a 6 Colombian sheath. Using an 035 angled glidewire and catheter the lesion of the occluded subclavian and innominate veins was crossed. We then exchanged the wire to an 035 stiffened Glidewire. 6 x 8 balloon was used to dialte the venous anastomosis. There was no residual stenosis seen. We then used the 6 x 8 followed by a 7 x 80 balloon on the innominate and subclavian vein on the left side. We did get flow through the vein seen. Being that it was a total occlusion in the area of the leads and the PermCath insertion site into these veins, I decided not to stretch to any further at this time. I was a concerned about possible rupture if we overdistended the veins. Most likely she will need re-angioplasty in the near future. The sheath was then pulled and pressure was applied. Adequate hemostasis was obtained. The patient left the angiogram suite in good condition and tolerated the procedure well. I attest to the content of the Intraoperative Record and any orders documented therein. Any exceptions are noted below.
--- NOTE | 2017-06-19 15:24 | Nephrology Progress Note ---
Nephrology Progress Note Date of Service: Jun 19, 2017. Subjective 71 yo female who dialyzes t/h/s-underwent hip surgery on friday. seen this am prior to dialysis. plan was dialysis and then to have fistulagram. did have chest pain this morning but troponins are negative. Objective Date Time Temp Pulse Resp B/P (MAP) Pulse Ox O2 Delivery O2 Flow Rate FiO2 06/19/17 14:58 59 18 144/71 100 Mask 4 06/19/17 13:39 36.7 68 18 144/74 94 Room Air 2.0 06/19/17 12:00 36.7 68 18 144/74 (97) 94 Room Air 06/19/17 11:56 37.1 60 152/62 (92) 06/19/17 11:15 61 147/61 06/19/17 11:00 61 143/63 06/19/17 10:45 60 132/40 06/19/17 10:30 60 143/63 06/19/17 10:15 60 135/62 06/19/17 10:00 60 142/59 06/19/17 09:45 60 131/60 06/19/17 09:30 60 125/57 06/19/17 09:15 60 125/55 06/19/17 09:00 60 130/53 06/19/17 08:45 60 123/58 06/19/17 08:37 60 136/66 06/19/17 08:30 37.1 63 140/65 (90) 06/19/17 07:50 Room Air 06/19/17 07:45 36.8 62 16 130/69 (89) 93 Room Air 06/19/17 00:23 Room Air 06/18/17 23:04 36.8 59 16 122/67 (85) 95 Room Air 06/18/17 22:06 62 128/66 (86) 06/18/17 16:30 Room Air 06/18/17 15:36 36.7 66 16 119/64 (82) 96 Room Air Physical Exam: General-aaox3 Eyes-no scleral icterus ENT-mmm Neck-supple Lungs-clear Heart-regular Abdomen-bs+ s/nt/nd Extremities-no c/c/e Neuro-nonfocal Current Inpatient Medications Medications (Trade) Dose Ordered Sig/Rayna Route Start Time Stop Time Status Last Admin Dose Admin Miscellaneous Information (Consult Glycemic Management Pharmacy) 1 ea UD PRN N/A 06/15/17 18:56 07/15/17 18:55 Ondansetron HCl (Zofran Inj) 4 mg Q6H PRN IV 06/15/17 19:15 07/15/17 19:14 Acetaminophen (Tylenol Tab) 650 mg Q6H PRN PO 06/15/17 19:15 07/15/17 19:14 06/18/17 22:42 650 MG Oxycodone HCl (Roxicodone Immediate Rel Tab) 5 mg Q4H PRN PO 06/15/17 19:15 06/29/17 19:14 Senna/Docusate Sodium (Senokot S Tab) 2 tab HS PO 06/15/17 21:00 07/15/17 20:59 06/17/17 20:45 2 TAB Polyethylene (Miralax Powder Packet) 17 gm DAILY PRN PO 06/15/17 19:15 07/15/17 19:14 Bisacodyl (Dulcolax Supp) 10 mg DAILY PRN UT 06/15/17 19:15 07/15/17 19:14 Glucose (Glucose 40% Gel) 15-30 GRAMS 15 GRAMS... UD PRN PO 06/15/17 19:30 07/15/17 19:29 Glucose (Glucose Chew Tab) 4-8 Tablets 4 Tabl... UD PRN PO 06/15/17 19:30 07/15/17 19:29 Dextrose (Dextrose 50% 50ML Syringe) 25-50ML OF 50% DW IV FOR... UD PRN IV 06/15/17 19:30 07/15/17 19:29 Glucagon (Glucagon Inj) 1 mg UD PRN SQ 06/15/17 19:30 07/15/17 19:29 Amiodarone HCl (Cordarone Tab) 200 mg QAM PO 06/16/17 09:00 07/16/17 08:59 06/19/17 07:57 200 MG Loratadine (Claritin Tab) 10 mg QAM PRN PO 06/15/17 19:45 07/15/17 19:44 06/16/17 08:32 10 MG Lorazepam (Ativan Tab) 0.5 mg TID PRN PO 06/15/17 19:45 07/15/17 19:44 Ranitidine HCl (zANTac TAB) 150 mg BID PO 06/15/17 21:00 07/15/17 20:59 06/19/17 07:56 150 MG Torsemide (Demadex Tab) 10 mg QAM PO 06/16/17 09:00 07/16/17 08:59 06/19/17 12:14 10 MG Calcium Acetate (Phoslo Cap) 667 mg TIDM PO 06/16/17 08:30 07/16/17 08:29 06/18/17 17:56 667 MG Cholecalciferol (Vitamin D Tab) 2,000 inter.unit QAM PO 06/16/17 09:00 07/16/17 08:59 06/19/17 07:56 2,000 INTER.UNIT Cyanocobalamin (Vitamin B-12 Tab) 1,000 mcg QAM PO 06/16/17 09:00 07/16/17 08:59 06/19/17 07:55 1,000 MCG Carvedilol (Coreg Tab) 50 mg BID PO 06/15/17 21:00 07/15/17 20:59 06/19/17 12:15 50 MG Atorvastatin Calcium (Lipitor Tab) 40 mg HS PO 06/15/17 21:00 07/15/17 20:59 06/18/17 22:11 40 MG Escitalopram Oxalate (Lexapro Tab) 20 mg HS PO 06/15/17 21:00 07/15/17 20:59 06/18/17 22:11 20 MG Miscellaneous Information 1 ea UD PRN N/A 06/16/17 10:30 07/16/17 10:29 Ceftriaxone Sodium 1 gm/ Dextrose 50 ml @ 100 mls/hr Q24H IV 06/16/17 11:00 06/26/17 10:59 06/19/17 12:08 100 MLS/HR Tramadol HCl (Ultram Tab) 50 mg Q12H PRN PO 06/16/17 14:30 07/16/17 14:29 Morphine Sulfate (MoRPHine SULFATE INJ) 4 mg Q4 PRN IV 06/17/17 12:45 07/01/17 12:44 06/19/17 05:27 4 MG Naloxone HCl (Narcan Inj) 0.4 mg Q1M PRN IV 06/17/17 12:45 07/17/17 12:44 Menthol (Nice Shavonne) 1 shavonne Q2H PRN PO 06/17/17 12:45 07/17/17 12:44 06/17/17 22:36 1 SHAVONNE Cefazolin Sodium 5 ml @ 1.667 mls/ min PREOP IV 06/19/17 06:00 06/19/17 18:00 06/19/17 13:50 1.667 MLS/MIN Insulin Aspart (novoLOG ASPART) SLIDING SCALE If C... Q6 SC 06/19/17 06:00 07/19/17 05:59 Insulin Glargine (Lantus Solostar Pen) SEE PROTOCOL TEXT HS OR 06/19/17 21:00 07/19/17 20:59 Last 24 Hours Test 06/18/17 17:00 06/18/17 21:32 06/19/17 00:04 06/19/17 02:01 Bedside Glucose 315 mg/dl 260 mg/dl 109 mg/dl 105 mg/dl Test 06/19/17 05:39 06/19/17 05:57 06/19/17 12:10 06/19/17 13:15 Bedside Glucose 141 mg/dl 127 mg/dl White Blood Count 11.70 K/uL Red Blood Count 2.74 M/uL Hemoglobin 9.0 g/dL Hematocrit 26.3 % Mean Corpuscular Volume 96.0 fL Mean Corpuscular Hemoglobin 32.8 pg Mean Corpuscular Hemoglobin Concent 34.2 g/dl RDW Standard Deviation 49.3 fL RDW Coefficient of Variation 14.3 % Platelet Count 96 K/uL Mean Platelet Volume 11.1 fL Prothrombin Time 14.3 SECONDS Prothromb Time International Ratio 1.4 Sodium Level 128 mmol/L Potassium Level 4.3 mmol/L Chloride Level 94 mmol/L Carbon Dioxide Level 22 mmol/L Anion Gap 11.0 mmol/L Blood Urea Nitrogen 69 mg/dl Creatinine 6.41 mg/dl Est Creatinine Clear Calc Drug Dose 7.6 ml/min Estimated GFR () 6.9 Estimated GFR (Non- 6.0 BUN/Creatinine Ratio 10.9 Random Glucose 139 mg/dl Calcium Level 8.6 mg/dl Troponin I 0.015 ng/ml < 0.015 ng/ml Assessment & Plan ESRD-had dialysis on friday. for dialysis this morning to help improve hyponatremia and clear toxins. pt will then go for fistulagram. anemia-hg below goal and continue procrit on dialysis to help optimize hg with a goal of 10 to 11.
[2017-06-19] MEDS ORDERED: NURSING DECISION MEDICATION ORDER SCH (16:15)
[2017-06-19] MEDS: ACETAMINOPHEN 325 MG TAB PO PRN (17:19)
--- NOTE | 2017-06-19 18:18 | Progress Note ---
Medicine Progress Note Date & Time of Visit: Jun 19, 2017 at 18:05. Subjective Pt was seen and examined Sitting in chair comfortable with no distress Pt had the fistulogram done today She said that she feels good Denies any chest pain, palpitation, dizziness and SOB Objective Last 8 Hrs Date Time Temp Pulse Resp B/P (MAP) Pulse Ox O2 Delivery O2 Flow Rate FiO2 06/19/17 15:25 95 Room Air 06/19/17 15:25 37.5 62 18 148/51 (83) 95 Room Air 06/19/17 14:58 59 18 144/71 100 Mask 4 06/19/17 13:39 36.7 68 18 144/74 94 Room Air 2.0 06/19/17 12:00 36.7 68 18 144/74 (97) 94 Room Air 06/19/17 11:56 37.1 60 152/62 (92) 06/19/17 11:15 61 147/61 06/19/17 11:00 61 143/63 06/19/17 10:45 60 132/40 06/19/17 10:30 60 143/63 06/19/17 10:15 60 135/62 Physical Exam: General- No acute distress Head- atraumatic Eyes- PERRL, EOMI ENT- oropharynx Neck- supple, no JVD Lungs-No wheezing Heart- regular rhythm; +murmur Abdomen- normal bowel sounds, soft Extremities- no calf tenderness Neuro- alert, oriented x 3; PERRL, EOMI Skin- warm & dry Laboratory Results: Last 24 Hours Test 06/18/17 21:32 06/19/17 00:04 06/19/17 02:01 06/19/17 05:39 Bedside Glucose 260 mg/dl 109 mg/dl 105 mg/dl 141 mg/dl Test 06/19/17 05:57 06/19/17 12:10 06/19/17 13:15 06/19/17 15:08 White Blood Count 11.70 K/uL Red Blood Count 2.74 M/uL Hemoglobin 9.0 g/dL Hematocrit 26.3 % Mean Corpuscular Volume 96.0 fL Mean Corpuscular Hemoglobin 32.8 pg Mean Corpuscular Hemoglobin Concent 34.2 g/dl RDW Standard Deviation 49.3 fL RDW Coefficient of Variation 14.3 % Platelet Count 96 K/uL Mean Platelet Volume 11.1 fL Prothrombin Time 14.3 SECONDS Prothromb Time International Ratio 1.4 Sodium Level 128 mmol/L Potassium Level 4.3 mmol/L Chloride Level 94 mmol/L Carbon Dioxide Level 22 mmol/L Anion Gap 11.0 mmol/L Blood Urea Nitrogen 69 mg/dl Creatinine 6.41 mg/dl Est Creatinine Clear Calc Drug Dose 7.6 ml/min Estimated GFR () 6.9 Estimated GFR (Non- 6.0 BUN/Creatinine Ratio 10.9 Random Glucose 139 mg/dl Calcium Level 8.6 mg/dl Troponin I 0.015 ng/ml < 0.015 ng/ml Bedside Glucose 127 mg/dl 186 mg/dl Assessment & Plan 71 yo F with multiple chronic medical problems presents with L hip fracture s/p mechanical fall at home. Left Hip fracture Pelvis xray showed Impacted subcapital fracture due to mechanical fall Was medically cleared by Cardio S/P day 2 Left hip hemiarthroplasty, cemented, with cable Ortho on board Pain control Hbg stable Incentive spirometry Continue PT/OT has been accepted to [facility] Will discharge tomorrow A fib Rate is controlled Coumadin on hold for the fistulogram Continue Coreg and amiodarone stable ESRD ON HD Had HD done on Friday HD done today Vascular on board Had Fistulogram done today by Dr. 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 Urology on board Recommended to D/C Sher aviva Will need a cysto in about 3 moths once stable UTI Urine cx grew Ecoli Received IV Ceftriaxone On Ancef now and day 5 IV abx will change to PO Afebrile, No leukocytosis Depression On Lexapro 20mg stable Anemia of chronic disease hgb stable Continue monitor cbc DVT px SCDs Will resume coumadin Full Code Disposition Will discharge to [facility] tomorrow Consultants: Ortho Cardio Current Inpatient Medications: Current Inpatient Medications Medications (Trade) Dose Ordered Sig/Rayna Route Start Time Stop Time Status Last Admin Dose Admin Miscellaneous Information (Consult Glycemic Management Pharmacy) 1 ea UD PRN N/A 06/15/17 18:56 07/15/17 18:55 Ondansetron HCl (Zofran Inj) 4 mg Q6H PRN IV 06/15/17 19:15 07/15/17 19:14 Acetaminophen (Tylenol Tab) 650 mg Q6H PRN PO 06/15/17 19:15 07/15/17 19:14 06/19/17 17:19 650 MG Oxycodone HCl (Roxicodone Immediate Rel Tab) 5 mg Q4H PRN PO 06/15/17 19:15 06/29/17 19:14 Senna/Docusate Sodium (Senokot S Tab) 2 tab HS PO 06/15/17 21:00 07/15/17 20:59 06/17/17 20:45 2 TAB Polyethylene (Miralax Powder Packet) 17 gm DAILY PRN PO 06/15/17 19:15 07/15/17 19:14 Bisacodyl (Dulcolax Supp) [address] 06/15/17 19:15 07/15/17 19:14 Glucose (Glucose 40% Gel) 15-30 GRAMS 15 GRAMS... UD PRN PO 06/15/17 19:30 07/15/17 19:29 Glucose (Glucose Chew Tab) 4-8 Tablets 4 Tabl... UD PRN PO 06/15/17 19:30 07/15/17 19:29 Dextrose (Dextrose 50% 50ML Syringe) 25-50ML OF 50% DW IV FOR... UD PRN IV 06/15/17 19:30 07/15/17 19:29 Glucagon (Glucagon Inj) 1 mg UD PRN SQ 06/15/17 19:30 07/15/17 19:29 Amiodarone HCl (Cordarone Tab) 200 mg QAM PO 06/16/17 09:00 07/16/17 08:59 06/19/17 07:57 200 MG Loratadine (Claritin Tab) 10 mg QAM PRN PO 06/15/17 19:45 07/15/17 19:44 06/16/17 08:32 10 MG Lorazepam (Ativan Tab) 0.5 mg TID PRN PO 06/15/17 19:45 07/15/17 19:44 Ranitidine HCl (zANTac TAB) 150 mg BID PO 06/15/17 21:00 07/15/17 20:59 06/19/17 07:56 150 MG Torsemide (Demadex Tab) 10 mg QAM PO 06/16/17 09:00 07/16/17 08:59 06/19/17 12:14 10 MG Calcium Acetate (Phoslo Cap) 667 mg TIDM PO 06/16/17 08:30 07/16/17 08:29 06/18/17 17:56 667 MG Cholecalciferol (Vitamin D Tab) 2,000 inter.unit QAM PO 06/16/17 09:00 07/16/17 08:59 06/19/17 07:56 2,000 INTER.UNIT Cyanocobalamin (Vitamin B-12 Tab) 1,000 mcg QAM PO 06/16/17 09:00 07/16/17 08:59 06/19/17 07:55 1,000 MCG Carvedilol (Coreg Tab) 50 mg BID PO 06/15/17 21:00 07/15/17 20:59 06/19/17 12:15 50 MG Atorvastatin Calcium (Lipitor Tab) 40 mg HS PO 06/15/17 21:00 07/15/17 20:59 06/18/17 22:11 40 MG Escitalopram Oxalate (Lexapro Tab) 20 mg HS PO 06/15/17 21:00 07/15/17 20:59 06/18/17 22:11 20 MG Miscellaneous Information 1 ea UD PRN N/A 06/16/17 10:30 07/16/17 10:29 Ceftriaxone Sodium 1 gm/ Dextrose 50 ml @ 100 mls/hr Q24H IV 06/16/17 11:00 06/26/17 10:59 06/19/17 12:08 100 MLS/HR Tramadol HCl (Ultram Tab) 50 mg Q12H PRN PO 06/16/17 14:30 07/16/17 14:29 Morphine Sulfate (MoRPHine SULFATE INJ) 4 mg Q4 PRN IV 06/17/17 12:45 07/01/17 12:44 06/19/17 05:27 4 MG Naloxone HCl (Narcan Inj) 0.4 mg Q1M PRN IV 06/17/17 12:45 07/17/17 12:44 Menthol (Nice [place]) 1 linwood Q2H PRN PO 06/17/17 12:45 07/17/17 12:44 06/17/17 22:36 1 LINWOOD Insulin Glargine (Lantus Solostar Pen) SEE PROTOCOL TEXT HS SC 06/19/17 21:00 07/19/17 20:59 Insulin Aspart (novoLOG ASPART) SLIDING SCALE If C... ACHS SC 06/19/17 17:15 07/19/17 05:59
[2017-06-19] MEDS ORDERED: WARFARIN SOD 4 MG TAB PO ONE (18:30)
[2017-06-19] MEDS: TRAMADOL HCL 50 MG TAB PO PRN (19:23)
[2017-06-19] MEDS: DOCUSATE SODIUM/SENNA 50/8.6MG TAB PO SCH (21:00)
[2017-06-19] MEDS: ESCITALOPRAM OXALATE 20 MG TAB PO SCH (21:12)
[2017-06-19] MEDS: ATORVASTATIN 40 MG TAB PO SCH (21:12)
[2017-06-19] MEDS: INSULIN GLARGINE SOLOSTAR 100 UNITS/ML 3 ML PEN SC SCH (21:20)
[2017-06-20 03:31] VITALS: BP 111/54; PULSE 63; TEMP 36.8; O2SAT 96
[2017-06-20] MEDS: ACETAMINOPHEN 325 MG TAB PO PRN (07:01)
[2017-06-20 07:16] VITALS: BP 144/53; PULSE 61; TEMP 36.6; O2SAT 96
[2017-06-20] MEDS: CALCIUM ACETATE 667MG GELCAP PO SCH ×3 (07:41→17:57)
[2017-06-20] MEDS: CHOLECALCIFEROL 1000 INTER.UNIT TAB PO SCH (07:41)
[2017-06-20] MEDS: CYANOCOBALAMIN 500 MCG TAB (VIT B-12) PO SCH (07:42)
[2017-06-20] MEDS: CARVEDILOL 25 MG TAB PO SCH ×2 (07:42→20:57)
[2017-06-20] MEDS: RANITIDINE HCL 150 MG TAB PO SCH ×2 (07:42→20:59)
[2017-06-20] MEDS: AMIODARONE 200 MG TAB PO SCH (07:42)
[2017-06-20] MEDS: TORSEMIDE 20 MG TAB PO SCH (07:43)
[2017-06-20 08:26] LABS: INR 1.4 (0.9-1.1); PROTHROMBIN TIME (PATIENT) 14.4 SECONDS (9.0-12.0)
--- NOTE | 2017-06-20 08:26 | Orthopedic Progress Note ---
Orthopedic Progress Note Date of Service Jun 20, 2017. Subjective Post OP Day: 3 Reports: feeling well, Denies: chest pain, SOB, nausea / vomiting, light headedness, calf pain Additional Notes: States her hip is tender when getting OOB etc. No other complaints. Objective calves soft nontender, N/V intact, hip located, incision C/D/I, toes mobile Date Time Temp Pulse Resp B/P (MAP) Pulse Ox O2 Delivery O2 Flow Rate FiO2 06/20/17 07:16 36.6 61 18 144/53 (83) 96 Room Air 06/20/17 03:31 36.8 63 15 111/54 (73) 96 Room Air 06/20/17 00:00 Room Air 06/19/17 23:06 36.5 61 16 114/57 (76) 95 Room Air 06/19/17 15:25 95 Room Air 06/19/17 15:25 37.5 62 18 148/51 (83) 95 Room Air 06/19/17 14:58 59 18 144/71 100 Mask 4 06/19/17 13:39 36.7 68 18 144/74 94 Room Air 2.0 06/19/17 12:00 36.7 68 18 144/74 (97) 94 Room Air 06/19/17 11:56 37.1 60 152/62 (92) 06/19/17 11:15 61 147/61 06/19/17 11:00 61 143/63 06/19/17 10:45 60 132/40 06/19/17 10:30 60 143/63 06/19/17 10:15 60 135/62 06/19/17 10:00 60 142/59 06/19/17 09:45 60 131/60 06/19/17 09:30 60 125/57 06/19/17 09:15 60 125/55 06/19/17 09:00 60 130/53 06/19/17 08:45 60 123/58 06/19/17 08:37 60 136/66 06/19/17 08:30 37.1 63 140/65 (90) Laboratory Results 24 Hours: Test 06/20/17 08:03 Assessment & Plan Assessment: POD 3 s/p Left Hip Hemiarthroplasty for Left displaced femoral neck fracture Plan: -WBAT LLE -Posterior hip precautions -PT/OT Ortho will sign off for now. Please call with any questions. [place] to be dc' d in 14 days from surgery. Hip instructions placed in EMR. Inhouse Planning Pain Management: Ultram, Morphine, Oxy IR DVT Prophylaxis: TEDs, SCDs, Coumadin
[2017-06-20 08:44] LABS: CREATININE 5.14 mg/dl (0.60-1.20)
[2017-06-20 08:45] LABS: BUN/CREATININE RATIO 9.7 (10-20); CALCIUM 8.4 mg/dl (8.5-10.1); POTASSIUM 3.9 mmol/L (3.5-5.1)
[2017-06-20] MEDS: INSULIN ASPART 100 UNITS/ML 3 ML PEN SC SCH ×4 (09:12→21:08)
[2017-06-20] MEDS: MoRPHine SULFATE 4 MG/ML 1 ML CARP\\VIAL IV PRN (09:49)
[2017-06-20] MEDS: CEFTRIAXONE SOD INJ 1000 MG in DEXTROSE 5% 50ML IV SCH (10:26)
[2017-06-20] MEDS: OXYCODONE HCL IR 5 MG TAB (IMMEDIATE RELEASE) PO PRN ×2 (10:27→20:10)
[2017-06-20 10:52] VITALS: BP 109/57; PULSE 60; TEMP 36.5; O2SAT 96
[2017-06-20 12:12] LABS: HEMATOCRIT 27.4 % (37-47); MEAN CELL VOLUME 97.5 fL (80-100); MEAN CORPUSCULAR HEMOGLOBIN 32.7 pg (25-34); MEAN CORPUSCULAR HGB CONC 33.6 g/dl (32-36); MEAN PLATELET VOLUME 11.4 fL (7.4-10.4); PLATELET COUNT 126 K/uL (130-400); RED BLOOD COUNT 2.81 M/uL (4.2-5.4); WHITE BLOOD COUNT 9.75 K/uL (4.8-10.8)
--- NOTE | 2017-06-20 14:39 | Cardiology Follow-Up ---
Subjective General Date of Service: Jun 20, 2017. Chief Complaint: gross hematuria Pt evaluation today including: conversation w/ patient, physical exam, chart review, lab review, review of studies, review of inpatient medication list History of Present Illness The patient is a 71 year old female seen in follow-up. Denies chest pain or shortness of breath. Pain controlled. Offers no complaints this time. Allergies Coded Allergies: Adhesives (Verified Allergy, Unknown, RXN TO ADHESIVE ON NITRO PATCH, 06/15) [place] (Verified Allergy, Unknown, UNKNOWN, 06/15/17) DESIREE Inhibitors (Verified Adverse Reaction, Mild, COUGH, 06/15/17) CAUSES COUGH Diphenhydramine (Verified Adverse Reaction, Mild, VERY WEAK, CHF, 06/16/17) Lisinopril (Verified Adverse Reaction, Mild, COUGH, 06/15/17) Nitroglycerin (Verified Adverse Reaction, Mild, HEADACHE/NAUSEA, 06/15/17) Sulfa Antibiotics (Verified Adverse Reaction, Mild, "KNOCKS ME OUT", ) Amlodipine (Verified Adverse Reaction, Unknown, RETAIN FLUID , 06/17/17) Social History Smoking Status: Never Smoker Hx Tobacco Use In Past Year?: No Hx Alcohol Use - Type And Amou: No Hx Substance Use - Type And Am: No Problem List Medical Problems: (1) Acute renal failure Status: Acute (2) Anticoagulated on Coumadin Status: Acute (3) Anticoagulated on Coumadin Status: Acute (4) CKD (chronic kidney disease) Status: Acute (5) Concussion Status: Acute (6) Dehydration Status: Acute (7) ESRD (end stage renal disease) Status: Acute (8) Fall Status: Acute (9) Febrile illness Status: Acute (10) Forehead contusion Status: Acute (11) Head pain Status: Acute (12) Headache Status: Acute (13) Hyperglycemia Status: Acute (14) Hyperglycemia Status: Acute (15) Hyperglycemia Status: Acute (16) Malignant hypertension Status: Acute (17) Right arm cellulitis Status: Acute (18) Vomiting Status: Acute (19) Weakness Status: Acute (20) Weakness Status: Acute (21) Worsening renal function Status: Acute Review of Systems Respiratory: No cough, No sputum, No wheezing, No shortness of breath, No dyspnea at rest Cardiac: No chest pain, No orthopnea, No PND, No edema, No palpitations Physical Exam Vital Signs Last Vital Signs Documentation Date Time Temp Pulse Resp B/P (MAP) Pulse Ox O2 Delivery O2 Flow Rate FiO2 06/20/17 10:52 36.5 60 16 109/57 (74) 96 Room Air 06/19/17 14:58 4 Physical Exam Constitutional: General Apperance: well-nourished, well-developed Level of Distress: NAD, chronically ill Psychiatric: Mental Status: active & alert, normal mood, normal affect Orientation: oriented except where noted, to time, to place, to person Memory: recent memory normal, remote memory normal Head: normocephalic, atraumatic Eyes: EOM: EOMI Neck: supple, trachea midline Lungs: Respiratory effort: no dyspnea Auscultation: no rales/crackles, no rhonchi Cardiovascular: Apical Impulse: not displaced Peripheral Pulses: Bruits: none appreciated, pertinent finding (L forearm AV graft with + thrill/bruit, weaker than vein AVF d/t it being a graft) Carotid Pulse: normal on the left, normal on the right Radial Pulse: normal on the left, normal on the right Femoral Pulse: pertinent finding (Not checked d/t recent L hip surgery and sitting in chair) Dorsalis Pedis Pulse: decreased on the left, decreased on the right Abdomen: Bowel Sounds: normal Inspection & Palpation: soft, non-distended, no tenderness, guarding & rebound Musculoskeletal: normal strength (5/5 throughout), normal tone Extremities: no edema, no clubbing, no ulcers Neurologic: Cranial Nerves: grossly intact Sensation: grossly intact Assessment and Plan Assessment and Plan FINAL IMPRESSION: 1. Postoperative day 3, left hip open reduction and internal fixation. 2. Chronic compensated heart failure with mild left ventricular systolic dysfunction. 3. Paroxysmal atrial fibrillation maintained in sinus rhythm on amiodarone and chronically anticoagulated with warfarin. -Coumadin restarted -INR subtherapeutic 4. History of normal epicardial coronary arteries 5. History of pericardial effusion status post window in 2014. 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 6. Labile hypertension -- controlled. 7. End-stage renal disease on hemodialysis followed by Dr. Marie. -Recent vascular procedure uncomplicated PLAN AND RECOMMENDATIONS: Dose of Coumadin daily for goal INR of 2.0-3.0. Continue current cardiovascular medications. No further inpatient cardiac testing at this time. PT/OT as tolerated. Cardiology will sign off. Please call with questions. Laboratory Results Last 24 Hours Test 06/19/17 15:08 06/19/17 17:03 06/19/17 20:49 06/20/17 08:03 Bedside Glucose 186 mg/dl 185 mg/dl 131 mg/dl White Blood Count 9.75 K/uL Red Blood Count 2.81 M/uL Hemoglobin 9.2 g/dL Hematocrit 27.4 % Mean Corpuscular Volume 97.5 fL Mean Corpuscular Hemoglobin 32.7 pg Mean Corpuscular Hemoglobin Concent 33.6 g/dl RDW Standard Deviation 50.8 fL RDW Coefficient of Variation 14.4 % Platelet Count 126 K/uL Mean Platelet Volume 11.4 fL Nucleated RBC Absolute Count (auto) 0.07 K/uL Nucleated Red Blood Cells % 0.8 % Prothrombin Time 14.4 SECONDS Prothromb Time International Ratio 1.4 Sodium Level 129 mmol/L Potassium Level 3.9 mmol/L Chloride Level 95 mmol/L Carbon Dioxide Level 25 mmol/L Anion Gap 10.0 mmol/L Blood Urea Nitrogen 50 mg/dl Creatinine 5.14 mg/dl Est Creatinine Clear Calc Drug Dose 9.9 ml/min Estimated GFR () 9.1 Estimated GFR (Non- 7.8 BUN/Creatinine Ratio 9.7 Random Glucose 130 mg/dl Calcium Level 8.4 mg/dl Test 06/20/17 08:06 06/20/17 09:45 Bedside Glucose 126 mg/dl 193 mg/dl
--- NOTE | 2017-06-20 14:39 | Pharmacy Progress Note ---
Glycemic Control Progress Note Date of Service Jun 20, 2017. Scope Glycemic Pharmacist consulted for glycemic control to write orders per [facility] inpatient glycemic control protocol. Objective Accuchecks BSG (last 24hrs): Test 06/19/17 15:08 06/19/17 17:03 06/19/17 20:49 06/20/17 08:03 Bedside Glucose 186 mg/dl (70-90) 185 mg/dl (70-90) 131 mg/dl (70-90) Random Glucose 130 mg/dl (70-99) Test 06/20/17 08:06 06/20/17 09:45 Bedside Glucose 126 mg/dl (70-90) 193 mg/dl (70-90) HbA1c: Test 06/16/17 07:09 Hemoglobin A1c 8.0 % (4.5-5.6) H Recent Pertinent Medications The patient is currently receiving: * Basal insulin: Lantus Q HS; 25 units if BSG 140 or less, 30 units if BSG above 140 * Correctional Insulin: Novolog Correction per scale ACHS Goal Range: Low 110 mg/dL - High 140 mg/dL Correction Factor: 10 mg/dL/unit * Prandial insulin: Per carb ratio of 1 unit per 4 grams CHO consumed * Oral Agents: None Outpatient Anti-Diabetic Meds Lantus 24 units qHS Novolog 12-14 units with meals Assessment & Plan ASSESSMENT: 06/20/17 * Fasting BSG at goal this AM, 126 with 25 units of Lantus on board * Post-prandial BSGs mostly at goal yesterday using current CR. Pre-lunch BSG elevated today however. Given current pattern, will not react to the single post-prandial elevation. * Patient's BSGs did look much better overall yesterday, however she had also received a larger dose of Lantus yesterday and was dialyzed which often improves insulin sensitivity. She may benefit from a slightly larger dosed of Lantus. Will adjust the Lantus scale to allow for a larger HS dose. PLAN FOR INPATIENT GLYCEMIC CONTROL: * Changing Lantus SQ Q HS to: * 25 units if BSG 110 or less * 30 units if BSG above 110 * Continuing correction factor of 10 mg/dl/unit * Continuing carb ratio of 1 unit per 4 grams CHO consumed * Continuing goal range of Low 110 mg/dL - High 140 mg/dL RECOMMENDATIONS FOR DISCHARGE: * * Please note that the plan above was derived based on current level of insulin resistance and hospital stress. These recommendations are appropriate for inpatient admission only. Plan of care upon discharge will need to be reassessed to avoid potential outpatient hypo/hyperglycemia. Thank you.
[2017-06-20 15:02] VITALS: BP 110/75; PULSE 61; TEMP 36.7; O2SAT 97
--- NOTE | 2017-06-20 15:49 | Progress Note ---
Medicine Progress Note Date & Time of Visit: Jun 20, 2017 at 15:38. Subjective Pt was seen and examined Sitting in bed with no distress Pt said that she felt dizzy this morning when pt came to work with her She said that she is not feeling good today Talked to foster care case manager, pt will need update PT for insurance authorization Since pt was not able to participate with physical therapy today, would not be able to get ins authorization for discharge today denies any chest pain, palpitation, dizziness and SOB Objective Last 8 Hrs Date Time Temp Pulse Resp B/P (MAP) Pulse Ox O2 Delivery O2 Flow Rate FiO2 06/20/17 15:02 36.7 61 18 110/75 (87) 97 Room Air 06/20/17 10:52 36.5 60 16 109/57 (74) 96 Room Air 06/20/17 08:00 Room Air Physical Exam: General- No acute distress Head- atraumatic Eyes- PERRL, EOMI ENT- oropharynx Neck- supple, no JVD Lungs-No wheezing Heart- regular rhythm; +murmur Abdomen- normal bowel sounds, soft Extremities- no calf tenderness Neuro- alert, oriented x 3; PERRL, EOMI Skin- warm & dry Laboratory Results: Last 24 Hours Test 06/19/17 17:03 06/19/17 20:49 06/20/17 08:03 06/20/17 08:06 Bedside Glucose 185 mg/dl 131 mg/dl 126 mg/dl White Blood Count 9.75 K/uL Red Blood Count 2.81 M/uL Hemoglobin 9.2 g/dL Hematocrit 27.4 % Mean Corpuscular Volume 97.5 fL Mean Corpuscular Hemoglobin 32.7 pg Mean Corpuscular Hemoglobin Concent 33.6 g/dl RDW Standard Deviation 50.8 fL RDW Coefficient of Variation 14.4 % Platelet Count 126 K/uL Mean Platelet Volume 11.4 fL Nucleated RBC Absolute Count (auto) 0.07 K/uL Nucleated Red Blood Cells % 0.8 % Prothrombin Time 14.4 SECONDS Prothromb Time International Ratio 1.4 Sodium Level 129 mmol/L Potassium Level 3.9 mmol/L Chloride Level 95 mmol/L Carbon Dioxide Level 25 mmol/L Anion Gap 10.0 mmol/L Blood Urea Nitrogen 50 mg/dl Creatinine 5.14 mg/dl Est Creatinine Clear Calc Drug Dose 9.9 ml/min Estimated GFR () 9.1 Estimated GFR (Non- 7.8 BUN/Creatinine Ratio 9.7 Random Glucose 130 mg/dl Calcium Level 8.4 mg/dl Test 06/20/17 09:45 Bedside Glucose 193 mg/dl Assessment & Plan 71 yo F with multiple chronic medical problems presents with L hip fracture s/p mechanical fall at home. Left Hip fracture Pelvis xray showed Impacted subcapital fracture due to mechanical fall Was medically cleared by Cardio S/P day 2 Left hip hemiarthroplasty, cemented, with cable Ortho on board Pain control Hbg stable Incentive spirometry Continue PT/OT has been accepted to [facility] Stable from ortho standpoint will need update PT for ins authorization waiting for placement for discharge A fib Rate is controlled Coumadin resumed Continue Coreg and amiodarone stable ESRD ON HD Had HD done on Friday HD on Fri//Fri Vascular on board Had Fistulogram done yesterday by Dr. 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 Urology on board Recommended to D/C [facility] Will need a cysto in about 3 moths once stable UTI Urine cx grew Ecoli Received IV Ceftriaxone On Ancef now and day 6 IV abx Will complete course tomorrow Afebrile, No leukocytosis Depression On Lexapro 20mg stable Anemia of chronic disease hgb stable Continue monitor cbc DVT px SCDs On coumadin (INR 1.4 Full Code Disposition Waiting for ins authorization to discharge to [facility] Consultants: Ortho Cardio Current Inpatient Medications: Current Inpatient Medications Medications (Trade) Dose Ordered Sig/Rayna Route Start Time Stop Time Status Last Admin Dose Admin Miscellaneous Information (Consult Glycemic Management Pharmacy) 1 ea UD PRN N/A 06/15/17 18:56 07/15/17 18:55 Ondansetron HCl (Zofran Inj) 4 mg Q6H PRN IV 06/15/17 19:15 07/15/17 19:14 Acetaminophen (Tylenol Tab) 650 mg Q6H PRN PO 06/15/17 19:15 07/15/17 19:14 06/20/17 07:01 650 MG Oxycodone HCl (Roxicodone Immediate Rel Tab) 5 mg Q4H PRN PO 06/15/17 19:15 06/29/17 19:14 06/20/17 10:27 5 MG Senna/Docusate Sodium (Senokot S Tab) 2 tab HS PO 06/15/17 21:00 07/15/17 20:59 06/17/17 20:45 2 TAB Polyethylene (Miralax Powder Packet) 17 gm DAILY PRN PO 06/15/17 19:15 07/15/17 19:14 06/20/17 09:12 17 GM Bisacodyl (Dulcolax Supp) 10 mg DAILY PRN [place] 06/15/17 19:15 07/15/17 19:14 Glucose (Glucose 40% Gel) 15-30 GRAMS 15 GRAMS... UD PRN PO 06/15/17 19:30 07/15/17 19:29 Glucose (Glucose Chew Tab) 4-8 Tablets 4 Tabl... UD PRN PO 06/15/17 19:30 07/15/17 19:29 Dextrose (Dextrose 50% 50ML Syringe) 25-50ML OF 50% DW IV FOR... UD PRN IV 06/15/17 19:30 07/15/17 19:29 Glucagon (Glucagon Inj) 1 mg UD PRN SQ 06/15/17 19:30 07/15/17 19:29 Amiodarone HCl (Cordarone Tab) 200 mg QAM PO 06/16/17 09:00 07/16/17 08:59 06/20/17 07:42 200 MG Loratadine (Claritin Tab) 10 mg QAM PRN PO 06/15/17 19:45 07/15/17 19:44 06/16/17 08:32 10 MG Lorazepam (Ativan Tab) 0.5 mg TID PRN PO 06/15/17 19:45 07/15/17 19:44 Ranitidine HCl (zANTac TAB) 150 mg BID PO 06/15/17 21:00 07/15/17 20:59 06/20/17 07:42 150 MG Torsemide (Demadex Tab) 10 mg QAM PO 06/16/17 09:00 07/16/17 08:59 06/20/17 07:43 10 MG Calcium Acetate (Phoslo Cap) 667 mg TIDM PO 06/16/17 08:30 07/16/17 08:29 06/20/17 12:02 667 MG Cholecalciferol (Vitamin D Tab) 2,000 inter.unit QAM PO 06/16/17 09:00 07/16/17 08:59 06/20/17 07:41 2,000 INTER.UNIT Cyanocobalamin (Vitamin B-12 Tab) 1,000 mcg QAM PO 06/16/17 09:00 07/16/17 08:59 06/20/17 07:42 1,000 MCG Carvedilol (Coreg Tab) 50 mg BID PO 06/15/17 21:00 07/15/17 20:59 06/20/17 07:42 50 MG Atorvastatin Calcium (Lipitor Tab) 40 mg HS PO 06/15/17 21:00 07/15/17 20:59 06/19/17 21:12 40 MG Escitalopram Oxalate (Lexapro Tab) 20 mg HS PO 06/15/17 21:00 07/15/17 20:59 06/19/17 21:12 20 MG Miscellaneous Information 1 ea UD PRN N/A 06/16/17 10:30 07/16/17 10:29 Ceftriaxone Sodium 1 gm/ Dextrose 50 ml @ 100 mls/hr Q24H IV 06/16/17 11:00 06/26/17 10:59 06/20/17 10:26 100 MLS/HR Tramadol HCl (Ultram Tab) 50 mg Q12H PRN PO 06/16/17 14:30 07/16/17 14:29 06/19/17 19:23 50 MG Morphine Sulfate (MoRPHine SULFATE INJ) 4 mg Q4 PRN IV 06/17/17 12:45 07/01/17 12:44 06/20/17 09:49 4 MG Naloxone HCl (Narcan Inj) 0.4 mg Q1M PRN IV 06/17/17 12:45 07/17/17 12:44 Menthol (Nice [place]) 1 [place] Q2H PRN PO 06/17/17 12:45 07/17/17 12:44 06/17/17 22:36 1 LINWOOD Insulin Glargine (Lantus Solostar Pen) SEE PROTOCOL TEXT HS [place] 06/19/17 21:00 07/19/17 20:59 06/19/17 21:20 25 UNITS Insulin Aspart (novoLOG ASPART) SLIDING SCALE If C... ACHS [place] 06/19/17 17:15 07/19/17 05:59 06/20/17 13:05 11 UNITS
[2017-06-20] MEDS: WARFARIN SOD 5 MG TAB PO SCH (16:56)
--- NOTE | 2017-06-20 18:30 | Nephrology Progress Note ---
Nephrology Progress Note Date of Service: Jun 20, 2017. Subjective 71 yo female who dialyzes t/h/s-underwent hip surgery on friday. underwent fistulagram on . had dialysis on . pt is tired and sleepy from the pain meds. Objective Date Time Temp Pulse Resp B/P (MAP) Pulse Ox O2 Delivery O2 Flow Rate FiO2 06/20/17 15:02 36.7 61 18 110/75 (87) 97 Room Air 06/20/17 10:52 36.5 60 16 109/57 (74) 96 Room Air 06/20/17 08:00 Room Air 06/20/17 07:16 36.6 61 18 144/53 (83) 96 Room Air 06/20/17 03:31 36.8 63 15 111/54 (73) 96 Room Air 06/20/17 00:00 Room Air 06/19/17 23:06 36.5 61 16 114/57 (76) 95 Room Air Physical Exam: General-aaox3, sleepy Eyes-no scleral icterus ENT-mmm Neck-supple Lungs-cta Heart-rrr Abdomen-bs+ s/nt/nd Extremities-no c/c/, +significant edema in the left arm Neuro-nonfocal Current Inpatient Medications Medications (Trade) Dose Ordered Sig/Rayna Route Start Time Stop Time Status Last Admin Dose Admin Miscellaneous Information (Consult Glycemic Management Pharmacy) 1 ea UD PRN N/A 06/15/17 18:56 07/15/17 18:55 Ondansetron HCl (Zofran Inj) 4 mg Q6H PRN IV 06/15/17 19:15 07/15/17 19:14 Acetaminophen (Tylenol Tab) 650 mg Q6H PRN PO 06/15/17 19:15 07/15/17 19:14 06/20/17 07:01 650 MG Oxycodone HCl (Roxicodone Immediate Rel Tab) 5 mg Q4H PRN PO 06/15/17 19:15 06/29/17 19:14 06/20/17 10:27 5 MG Senna/Docusate Sodium (Senokot S Tab) 2 tab HS PO 06/15/17 21:00 07/15/17 20:59 06/17/17 20:45 2 TAB Polyethylene (Miralax Powder Packet) 17 gm DAILY PRN PO 06/15/17 19:15 07/15/17 19:14 06/20/17 09:12 17 GM Bisacodyl (Dulcolax Supp) 10 mg DAILY PRN [place] 06/15/17 19:15 07/15/17 19:14 Glucose (Glucose 40% Gel) 15-30 GRAMS 15 GRAMS... UD PRN PO 06/15/17 19:30 07/15/17 19:29 Glucose (Glucose Chew Tab) 4-8 Tablets 4 Tabl... UD PRN PO 06/15/17 19:30 07/15/17 19:29 Dextrose (Dextrose 50% 50ML Syringe) 25-50ML OF 50% DW IV FOR... UD PRN IV 06/15/17 19:30 07/15/17 19:29 Glucagon (Glucagon Inj) 1 mg UD PRN SQ 06/15/17 19:30 07/15/17 19:29 Amiodarone HCl (Cordarone Tab) 200 mg QAM PO 06/16/17 09:00 07/16/17 08:59 06/20/17 07:42 200 MG Loratadine (Claritin Tab) 10 mg QAM PRN PO 06/15/17 19:45 07/15/17 19:44 06/16/17 08:32 10 MG Lorazepam (Ativan Tab) 0.5 mg TID PRN PO 06/15/17 19:45 07/15/17 19:44 Ranitidine HCl (zANTac TAB) 150 mg BID PO 06/15/17 21:00 07/15/17 20:59 06/20/17 07:42 150 MG Torsemide (Demadex Tab) 10 mg QAM PO 06/16/17 09:00 07/16/17 08:59 06/20/17 07:43 10 MG Calcium Acetate (Phoslo Cap) 667 mg TIDM PO 06/16/17 08:30 07/16/17 08:29 06/20/17 17:57 667 MG Cholecalciferol (Vitamin D Tab) 2,000 inter.unit QAM PO 06/16/17 09:00 07/16/17 08:59 06/20/17 07:41 2,000 INTER.UNIT Cyanocobalamin (Vitamin B-12 Tab) 1,000 mcg QAM PO 06/16/17 09:00 07/16/17 08:59 06/20/17 07:42 1,000 MCG Carvedilol (Coreg Tab) 50 mg BID PO 06/15/17 21:00 07/15/17 20:59 06/20/17 07:42 50 MG Atorvastatin Calcium (Lipitor Tab) 40 mg HS PO 06/15/17 21:00 07/15/17 20:59 06/19/17 21:12 40 MG Escitalopram Oxalate (Lexapro Tab) 20 mg HS PO 06/15/17 21:00 07/15/17 20:59 06/19/17 21:12 20 MG Miscellaneous Information 1 ea UD PRN N/A 06/16/17 10:30 07/16/17 10:29 Ceftriaxone Sodium 1 gm/ Dextrose 50 ml @ 100 mls/hr Q24H IV 06/16/17 11:00 06/26/17 10:59 06/20/17 10:26 100 MLS/HR Tramadol HCl (Ultram Tab) 50 mg Q12H PRN PO 06/16/17 14:30 07/16/17 14:29 06/19/17 19:23 50 MG Morphine Sulfate (MoRPHine SULFATE INJ) 4 mg Q4 PRN IV 06/17/17 12:45 07/01/17 12:44 06/20/17 09:49 4 MG Naloxone HCl (Narcan Inj) 0.4 mg Q1M PRN IV 06/17/17 12:45 07/17/17 12:44 Menthol (Nice [place]) 1 [place]avonne Q2H PRN PO 06/17/17 12:45 07/17/17 12:44 06/17/17 22:36 1 [place] Insulin Glargine (Lantus Solostar Pen) SEE PROTOCOL TEXT HS [place] 06/19/17 21:00 07/19/17 20:59 06/19/17 21:20 25 UNITS Insulin Aspart (novoLOG ASPART) SLIDING SCALE If C... ACHS [place] 06/19/17 17:15 07/19/17 05:59 06/20/17 13:05 11 UNITS Warfarin Sodium (Coumadin Tab) 5 mg DAILY@16 PO 06/20/17 16:00 07/20/17 15:59 06/20/17 16:56 5 MG Last 24 Hours Test 06/19/17 20:49 06/20/17 08:03 06/20/17 08:06 06/20/17 09:45 Bedside Glucose 131 mg/dl 126 mg/dl 193 mg/dl White Blood Count 9.75 K/uL Red Blood Count 2.81 M/uL Hemoglobin 9.2 g/dL Hematocrit 27.4 % Mean Corpuscular Volume 97.5 fL Mean Corpuscular Hemoglobin 32.7 pg Mean Corpuscular Hemoglobin Concent 33.6 g/dl RDW Standard Deviation 50.8 fL RDW Coefficient of Variation 14.4 % Platelet Count 126 K/uL Mean Platelet Volume 11.4 fL Nucleated RBC Absolute Count (auto) 0.07 K/uL Nucleated Red Blood Cells % 0.8 % Prothrombin Time 14.4 SECONDS Prothromb Time International Ratio 1.4 Sodium Level 129 mmol/L Potassium Level 3.9 mmol/L Chloride Level 95 mmol/L Carbon Dioxide Level 25 mmol/L Anion Gap 10.0 mmol/L Blood Urea Nitrogen 50 mg/dl Creatinine 5.14 mg/dl Est Creatinine Clear Calc Drug Dose 9.9 ml/min Estimated GFR () 9.1 Estimated GFR (Non- 7.8 BUN/Creatinine Ratio 9.7 Random Glucose 130 mg/dl Calcium Level 8.4 mg/dl Test 06/20/17 11:58 Bedside Glucose 205 mg/dl Assessment & Plan ESRD-continue dialysis on t/h/s. plan on dialysis again tomorrow. anemia-hg below goal and continue procrit on dialysis to help optimize hg with a goal of 10 to 11. access-had edema in the left arm, underwent fistulagram to help with stenosis.
[2017-06-20] MEDS: ATORVASTATIN 40 MG TAB PO SCH (20:59)
[2017-06-20] MEDS: ESCITALOPRAM OXALATE 20 MG TAB PO SCH (20:59)
[2017-06-20] MEDS: DOCUSATE SODIUM/SENNA 50/8.6MG TAB PO SCH (20:59)
[2017-06-20] MEDS: INSULIN GLARGINE SOLOSTAR 100 UNITS/ML 3 ML PEN SC SCH (21:09)
[2017-06-20 23:02] VITALS: BP 130/81; PULSE 70; TEMP 37.3; O2SAT 95
[2017-06-21] VITALS (18 sets, daily range): BP systolic 95–119; BP diastolic 43–67; PULSE 60–64; TEMP 36.9–37.7; O2SAT 92–99
[2017-06-21 06:36] LABS: INR 1.6 (0.9-1.1); PROTHROMBIN TIME (PATIENT) 16.2 SECONDS (9.0-12.0)
[2017-06-21 07:13] LABS: BUN/CREATININE RATIO 9.6 (10-20); CALCIUM 8.3 mg/dl (8.5-10.1); CREATININE 6.57 mg/dl (0.60-1.20); POTASSIUM 4.1 mmol/L (3.5-5.1)
[2017-06-21] MEDS: CARVEDILOL 25 MG TAB PO SCH ×2 (07:37→20:58)
[2017-06-21] MEDS: CALCIUM ACETATE 667MG GELCAP PO SCH ×3 (07:38→18:49)
[2017-06-21] MEDS: CYANOCOBALAMIN 500 MCG TAB (VIT B-12) PO SCH (07:38)
[2017-06-21] MEDS: TORSEMIDE 20 MG TAB PO SCH (07:38)
[2017-06-21] MEDS: AMIODARONE 200 MG TAB PO SCH (07:38)
[2017-06-21] MEDS: CHOLECALCIFEROL 1000 INTER.UNIT TAB PO SCH (07:38)
[2017-06-21] MEDS: RANITIDINE HCL 150 MG TAB PO SCH ×2 (07:39→21:07)
[2017-06-21] MEDS: INSULIN ASPART 100 UNITS/ML 3 ML PEN SC SCH ×4 (08:17→21:00)
[2017-06-21] MEDS: OXYCODONE HCL IR 5 MG TAB (IMMEDIATE RELEASE) PO PRN (09:36)
[2017-06-21] MEDS: CEFTRIAXONE SOD INJ 1000 MG in DEXTROSE 5% 50ML IV SCH ×2 (11:00→17:04)
[2017-06-21] MEDS ORDERED: EPOETIN ALFA 10,000 UNITS/ML VIAL IV. SCH (11:00)
--- NOTE | 2017-06-21 12:19 | Dialysis Progress Note ---
Nephrology Dialysis Note Date of Service: Jun 21, 2017. Subjective c/o hip pain >> pain med en route to dialysis; no n/v, no dypsnea Objective Date Time Temp Pulse Resp B/P (MAP) Pulse Ox O2 Delivery O2 Flow Rate FiO2 06/21/17 11:30 60 118/52 06/21/17 11:15 60 119/49 06/21/17 11:00 60 107/52 06/21/17 10:45 60 110/64 06/21/17 10:30 61 99/43 06/21/17 10:15 60 113/45 06/21/17 10:00 60 112/50 06/21/17 09:45 60 119/51 06/21/17 09:30 60 96/45 06/21/17 09:15 60 106/46 06/21/17 09:05 37.7 60 118/60 (79) 06/21/17 09:00 60 112/49 06/21/17 08:46 60 119/58 06/21/17 07:59 37.5 60 17 105/54 (71) 92 Room Air 06/21/17 07:20 Room Air 06/21/17 00:50 Room Air 06/20/17 23:02 37.3 70 15 130/81 (97) 95 Room Air 06/20/17 19:45 Room Air 06/20/17 15:02 36.7 61 18 110/75 (87) 97 Room Air Physical Exam: General-aaox3, sleepy, on RA Eyes-no scleral icterus; healing/old ecchymosis R brow ENT-mmm Neck-supple Lungs-cta Heart-rrr Abdomen-bs+ s/nt/nd Extremities-no c/c/, +significant edema in the left arm Neuro-bustamante, fluent speech Current Inpatient Medications Medications (Trade) Dose Ordered Sig/Rayna Route Start Time Stop Time Status Last Admin Dose Admin Miscellaneous Information (Consult Glycemic Management Pharmacy) 1 ea UD PRN N/A 06/15/17 18:56 07/15/17 18:55 Ondansetron HCl (Zofran Inj) 4 mg Q6H PRN IV 06/15/17 19:15 07/15/17 19:14 Acetaminophen (Tylenol Tab) 650 mg Q6H PRN PO 06/15/17 19:15 07/15/17 19:14 06/20/17 07:01 650 MG Oxycodone HCl (Roxicodone Immediate Rel Tab) 5 mg Q4H PRN PO 06/15/17 19:15 06/29/17 19:14 06/21/17 09:36 5 MG Senna/Docusate Sodium (Senokot S Tab) 2 tab HS PO 06/15/17 21:00 07/15/17 20:59 06/20/17 20:59 2 TAB Polyethylene (Miralax Powder Packet) 17 gm DAILY PRN PO 06/15/17 19:15 07/15/17 19:14 06/20/17 09:12 17 GM Bisacodyl (Dulcolax Supp) 10 mg DAILY PRN ND 06/15/17 19:15 07/15/17 19:14 Glucose (Glucose 40% Gel) 15-30 GRAMS 15 GRAMS... UD PRN PO 06/15/17 19:30 07/15/17 19:29 Glucose (Glucose Chew Tab) 4-8 Tablets 4 Tabl... UD PRN PO 06/15/17 19:30 07/15/17 19:29 Dextrose (Dextrose 50% 50ML Syringe) 25-50ML OF 50% DW IV FOR... UD PRN IV 06/15/17 19:30 07/15/17 19:29 Glucagon (Glucagon Inj) 1 mg UD PRN SQ 06/15/17 19:30 07/15/17 19:29 Amiodarone HCl (Cordarone Tab) 200 mg QAM PO 06/16/17 09:00 07/16/17 08:59 06/21/17 07:38 200 MG Loratadine (Claritin Tab) 10 mg QAM PRN PO 06/15/17 19:45 07/15/17 19:44 06/16/17 08:32 10 MG Lorazepam (Ativan Tab) 0.5 mg TID PRN PO 06/15/17 19:45 07/15/17 19:44 Ranitidine HCl (zANTac TAB) 150 mg BID PO 06/15/17 21:00 07/15/17 20:59 06/21/17 07:39 150 MG Torsemide (Demadex Tab) 10 mg QAM PO 06/16/17 09:00 07/16/17 08:59 06/21/17 07:38 10 MG Calcium Acetate (Phoslo Cap) 667 mg TIDM PO 06/16/17 08:30 07/16/17 08:29 06/21/17 07:38 667 MG Cholecalciferol (Vitamin D Tab) 2,000 inter.unit QAM PO 06/16/17 09:00 07/16/17 08:59 06/21/17 07:38 2,000 INTER.UNIT Cyanocobalamin (Vitamin B-12 Tab) 1,000 mcg QAM PO 06/16/17 09:00 07/16/17 08:59 06/21/17 07:38 1,000 MCG Carvedilol (Coreg Tab) 50 mg BID PO 06/15/17 21:00 07/15/17 20:59 06/21/17 07:37 50 MG Atorvastatin Calcium (Lipitor Tab) 40 mg HS PO 06/15/17 21:00 07/15/17 20:59 06/20/17 20:59 40 MG Escitalopram Oxalate (Lexapro Tab) 20 mg HS PO 06/15/17 21:00 07/15/17 20:59 06/20/17 20:59 20 MG Miscellaneous Information 1 ea UD PRN N/A 06/16/17 10:30 07/16/17 10:29 Ceftriaxone Sodium 1 gm/ Dextrose 50 ml @ 100 mls/hr Q24H IV 06/16/17 11:00 06/26/17 10:59 06/20/17 10:26 100 MLS/HR Tramadol HCl (Ultram Tab) 50 mg Q12H PRN PO 06/16/17 14:30 07/16/17 14:29 06/19/17 19:23 50 MG Morphine Sulfate (MoRPHine SULFATE INJ) 4 mg Q4 PRN IV 06/17/17 12:45 07/01/17 12:44 06/20/17 09:49 4 MG Naloxone HCl (Narcan Inj) 0.4 mg Q1M PRN IV 06/17/17 12:45 07/17/17 12:44 Menthol (Nice Linwood) 1 linwood Q2H PRN PO 06/17/17 12:45 07/17/17 12:44 06/17/17 22:36 1 LINWOOD Insulin Glargine (Lantus Solostar Pen) SEE PROTOCOL TEXT HS NE 06/19/17 21:00 07/19/17 20:59 06/20/17 21:09 30 UNITS Insulin Aspart (novoLOG ASPART) SLIDING SCALE If C... ACHS NE 06/19/17 17:15 07/19/17 05:59 06/21/17 08:17 9 UNITS Warfarin Sodium (Coumadin Tab) 5 mg DAILY@16 PO 06/20/17 16:00 07/20/17 15:59 06/20/17 16:56 5 MG Epoetin Aubrey (Procrit Inj) 10,000 units TODAY@1100 IV. 06/21/17 11:00 06/21/17 18:00 06/21/17 10:48 10,000 UNITS Last 24 Hours Test 06/20/17 17:00 06/20/17 20:21 06/21/17 05:44 06/21/17 07:45 Bedside Glucose 161 mg/dl 186 mg/dl 109 mg/dl Prothrombin Time 16.2 SECONDS Prothromb Time International Ratio 1.6 Sodium Level 127 mmol/L Potassium Level 4.1 mmol/L Chloride Level 93 mmol/L Carbon Dioxide Level 24 mmol/L Anion Gap 10.0 mmol/L Blood Urea Nitrogen 63 mg/dl Creatinine 6.57 mg/dl Est Creatinine Clear Calc Drug Dose 7.7 ml/min Estimated GFR () 6.7 Estimated GFR (Non- 5.8 BUN/Creatinine Ratio 9.6 Random Glucose 105 mg/dl Calcium Level 8.3 mg/dl Test 06/21/17 12:06 Bedside Glucose 113 mg/dl Assessment & Plan 71 yo female who dialyzes t/h/s-underwent hip surgery on friday. underwent fistulagram on . pt is tired and sleepy from the pain meds; still working on pain control. ESRD-continue dialysis on t/h/s. next HD on 06/24 or as clinical condition dictates anemia-hg below goal and continue procrit on dialysis to help optimize hg with a goal of 10 to 11. access-had edema in the left arm, underwent fistulagram to help with stenosis.
[2017-06-21] MEDS: TRAMADOL HCL 50 MG TAB PO PRN (14:10)
[2017-06-21] MEDS: WARFARIN SOD 5 MG TAB PO SCH (16:01)
--- NOTE | 2017-06-21 19:11 | Progress Note ---
Medicine Progress Note Date & Time of Visit: Jun 21, 2017 at 14:03. Subjective Pt was seen and examined Lying in bed with no distress Pt said that she feels tired since she just got back from HD Denies any chest pain, palpitation dizziness and SOB Objective Last 8 Hrs Date Time Temp Pulse Resp B/P (MAP) Pulse Ox O2 Delivery O2 Flow Rate FiO2 06/21/17 15:05 Room Air 06/21/17 14:53 37.2 64 18 108/51 (70) 99 Room Air 06/21/17 12:15 36.9 60 112/44 (66) 06/21/17 11:30 60 118/52 06/21/17 11:15 60 119/49 Physical Exam: General- No acute distress Head- atraumatic Eyes- PERRL, EOMI ENT- oropharynx Neck- supple, no JVD Lungs-No wheezing Heart- regular rhythm; +murmur Abdomen- normal bowel sounds, soft Extremities- no calf tenderness Neuro- alert, oriented x 3; PERRL, EOMI Skin- warm & dry Laboratory Results: Last 24 Hours Test 06/20/17 20:21 06/21/17 05:44 06/21/17 07:45 06/21/17 12:06 Bedside Glucose 186 mg/dl 109 mg/dl 113 mg/dl Prothrombin Time 16.2 SECONDS Prothromb Time International Ratio 1.6 Sodium Level 127 mmol/L Potassium Level 4.1 mmol/L Chloride Level 93 mmol/L Carbon Dioxide Level 24 mmol/L Anion Gap 10.0 mmol/L Blood Urea Nitrogen 63 mg/dl Creatinine 6.57 mg/dl Est Creatinine Clear Calc Drug Dose 7.7 ml/min Estimated GFR () 6.7 Estimated GFR (Non- 5.8 BUN/Creatinine Ratio 9.6 Random Glucose 105 mg/dl Calcium Level 8.3 mg/dl Test 06/21/17 16:59 Bedside Glucose 195 mg/dl Assessment & Plan 71 yo F with multiple chronic medical problems presents with L hip fracture s/p mechanical fall at home. Left Hip fracture Pelvis xray showed Impacted subcapital fracture due to mechanical fall Was medically cleared by Cardio S/P day 2 Left hip hemiarthroplasty, cemented, with cable Ortho on board Pain control Hbg stable Incentive spirometry Continue PT/OT has been accepted to [facility] Stable from ortho standpoint will need update PT for ins authorization waiting for placement for discharge A fib Rate is controlled Coumadin resumed Continue Coreg and amiodarone stable ESRD ON HD Had HD done on Friday HD on Fri//Sat Vascular on board Had Fistulogram done yesterday by Dr. 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 العراقي, the perm-cath can be removed Will need re-angioplasty in the next few weeks as per Vascular ( will need to arrange as an outpatient in [place]) DM 2 Recent Hba1c 8 on 06/16 Continue Lantus 30 units Insulin coverage continue monitor BS Hyponatremia Na 127 today Monitor BMP Gross hematuria poss 2/2 infection vs stone vs malignancy as a few possible causes. Urology on board [facility] as per urology recommendation Will need a cysto in about 3 moths once stable UTI Urine cx grew Ecoli Will complete IV abx course tomorrow Afebrile, No leukocytosis Depression On Lexapro 20mg stable Anemia of chronic disease hgb stable Continue monitor cbc DVT px SCDs On coumadin (INR 1.6) Full Code Disposition Waiting for ins authorization to discharge to [facility] Consultants: Ortho Cardio Procedures: Fistulogram done by vascular surgeon Dr. العراقي Current Inpatient Medications: Current Inpatient Medications Medications (Trade) Dose Ordered Sig/Rayna Route Start Time Stop Time Status Last Admin Dose Admin Miscellaneous Information (Consult Glycemic Management Pharmacy) 1 ea UD PRN N/A 06/15/17 18:56 07/15/17 18:55 Ondansetron HCl (Zofran Inj) 4 mg Q6H PRN IV 06/15/17 19:15 07/15/17 19:14 Acetaminophen (Tylenol Tab) 650 mg Q6H PRN PO 06/15/17 19:15 07/15/17 19:14 06/20/17 07:01 650 MG Oxycodone HCl (Roxicodone Immediate Rel Tab) 5 mg Q4H PRN PO 06/15/17 19:15 06/29/17 19:14 06/21/17 09:36 5 MG Senna/Docusate Sodium (Senokot S Tab) 2 tab HS PO 06/15/17 21:00 07/15/17 20:59 06/20/17 20:59 2 TAB Polyethylene (Miralax Powder Packet) 17 gm DAILY PRN PO 06/15/17 19:15 07/15/17 19:14 06/20/17 09:12 17 GM Bisacodyl (Dulcolax Supp) 10 mg DAILY PRN ND 06/15/17 19:15 07/15/17 19:14 Glucose (Glucose 40% Gel) 15-30 GRAMS 15 GRAMS... UD PRN PO 06/15/17 19:30 07/15/17 19:29 Glucose (Glucose Chew Tab) 4-8 Tablets 4 Tabl... UD PRN PO 06/15/17 19:30 07/15/17 19:29 Dextrose (Dextrose 50% 50ML Syringe) 25-50ML OF 50% DW IV FOR... UD PRN IV 06/15/17 19:30 07/15/17 19:29 Glucagon (Glucagon Inj) 1 mg UD PRN SQ 06/15/17 19:30 07/15/17 19:29 Amiodarone HCl (Cordarone Tab) 200 mg QAM PO 06/16/17 09:00 07/16/17 08:59 06/21/17 07:38 200 MG Loratadine (Claritin Tab) 10 mg QAM PRN PO 06/15/17 19:45 07/15/17 19:44 06/16/17 08:32 10 MG Lorazepam (Ativan Tab) 0.5 mg TID PRN PO 06/15/17 19:45 07/15/17 19:44 Ranitidine HCl (zANTac TAB) 150 mg BID PO 06/15/17 21:00 07/15/17 20:59 06/21/17 07:39 150 MG Torsemide (Demadex Tab) 10 mg QAM PO 06/16/17 09:00 07/16/17 08:59 06/21/17 07:38 10 MG Calcium Acetate (Phoslo Cap) 667 mg TIDM PO 06/16/17 08:30 07/16/17 08:29 06/21/17 18:49 667 MG Cholecalciferol (Vitamin D Tab) 2,000 inter.unit QAM PO 06/16/17 09:00 07/16/17 08:59 06/21/17 07:38 2,000 INTER.UNIT Cyanocobalamin (Vitamin B-12 Tab) 1,000 mcg QAM PO 06/16/17 09:00 07/16/17 08:59 06/21/17 07:38 1,000 MCG Carvedilol (Coreg Tab) 50 mg BID PO 06/15/17 21:00 07/15/17 20:59 06/21/17 07:37 50 MG Atorvastatin Calcium (Lipitor Tab) 40 mg HS PO 06/15/17 21:00 07/15/17 20:59 06/20/17 20:59 40 MG Escitalopram Oxalate (Lexapro Tab) 20 mg HS PO 06/15/17 21:00 07/15/17 20:59 06/20/17 20:59 20 MG Miscellaneous Information 1 ea UD PRN N/A 06/16/17 10:30 07/16/17 10:29 Ceftriaxone Sodium 1 gm/ Dextrose 50 ml @ 100 mls/hr Q24H IV 06/16/17 11:00 06/22/17 23:59 06/21/17 17:04 100 MLS/HR Tramadol HCl (Ultram Tab) 50 mg Q12H PRN PO 06/16/17 14:30 07/16/17 14:29 06/21/17 14:10 50 MG Morphine Sulfate (MoRPHine SULFATE INJ) 4 mg Q4 PRN IV 06/17/17 12:45 07/01/17 12:44 06/20/17 09:49 4 MG Naloxone HCl (Narcan Inj) 0.4 mg Q1M PRN IV 06/17/17 12:45 07/17/17 12:44 Menthol (Nice Linwood) 1 linwood Q2H PRN PO 06/17/17 12:45 07/17/17 12:44 06/17/17 22:36 1 LINWOOD Insulin Glargine (Lantus Solostar Pen) SEE PROTOCOL TEXT HS SC 06/19/17 21:00 07/19/17 20:59 06/20/17 21:09 30 UNITS Insulin Aspart (novoLOG ASPART) SLIDING SCALE If C... ACHS SC 06/19/17 17:15 07/19/17 05:59 06/21/17 18:51 11 UNITS Warfarin Sodium (Coumadin Tab) 5 mg DAILY@16 PO 06/20/17 16:00 07/20/17 15:59 06/21/17 16:01 5 MG
[2017-06-21] MEDS: ESCITALOPRAM OXALATE 20 MG TAB PO SCH (21:07)
[2017-06-21] MEDS: ATORVASTATIN 40 MG TAB PO SCH (21:07)
[2017-06-21] MEDS: DOCUSATE SODIUM/SENNA 50/8.6MG TAB PO SCH (21:07)
[2017-06-21] MEDS: INSULIN GLARGINE SOLOSTAR 100 UNITS/ML 3 ML PEN SC SCH (21:14)
[2017-06-21] MEDS: ACETAMINOPHEN 325 MG TAB PO PRN (22:17)
[2017-06-22 07:00] LABS: INR 1.5 (0.9-1.1); PROTHROMBIN TIME (PATIENT) 15.7 SECONDS (9.0-12.0)
[2017-06-22 07:15] VITALS: BP 97/59; PULSE 59; TEMP 36.7; O2SAT 99
[2017-06-22 07:44] LABS: BUN/CREATININE RATIO 7.6 (10-20); CALCIUM 8.3 mg/dl (8.5-10.1); CREATININE 5.27 mg/dl (0.60-1.20)
[2017-06-22] MEDS: CALCIUM ACETATE 667MG GELCAP PO SCH ×3 (08:46→17:59)
[2017-06-22] MEDS: TORSEMIDE 20 MG TAB PO SCH (08:49)
[2017-06-22] MEDS: INSULIN ASPART 100 UNITS/ML 3 ML PEN SC SCH ×4 (08:49→20:52)
[2017-06-22] MEDS: CHOLECALCIFEROL 1000 INTER.UNIT TAB PO SCH (08:50)
[2017-06-22] MEDS: CARVEDILOL 25 MG TAB PO SCH ×2 (08:50→20:51)
[2017-06-22] MEDS: AMIODARONE 200 MG TAB PO SCH (08:50)
[2017-06-22] MEDS: CYANOCOBALAMIN 500 MCG TAB (VIT B-12) PO SCH (08:50)
[2017-06-22] MEDS: RANITIDINE HCL 150 MG TAB PO SCH ×2 (08:50→20:54)
[2017-06-22] MEDS: CEFTRIAXONE SOD INJ 1000 MG in DEXTROSE 5% 50ML IV SCH (10:50)
--- NOTE | 2017-06-22 14:36 | Pharmacy Progress Note ---
Pharmacy Glycemic Short Note 2 Date of Service Jun 22, 2017. OUTPATIENT ANTIDIABETIC REGIMEN: * Lantus 24 units qHS * Novolog 12-14 units with meals ASSESSMENT: * Patient received 50 units of insulin on 06/21 with BSGs of 109, 113, 195, 136 mg/dL * Last HD session was 06/21. Next HD is scheduled for Friday. * Current insulin regimen appropriate PLAN FOR INPATIENT GLYCEMIC CONTROL: * Basal insulin * Lantus 30 units SQ qHS * Bolus insulin * Novolog ACHS * Continuing correction factor of 10 mg/dl/unit * Continuing carb ratio of 1 unit per 4 grams CHO consumed * Continuing goal range of Low 110 mg/dL - High 140 mg/dL thank you.
[2017-06-22] MEDS: ACETAMINOPHEN 325 MG TAB PO PRN (15:03)
[2017-06-22 15:21] VITALS: BP 126/56; PULSE 62; TEMP 37.2; O2SAT 100
[2017-06-22] MEDS: WARFARIN SOD 5 MG TAB PO SCH (16:07)
--- NOTE | 2017-06-22 17:46 | Progress Note ---
Medicine Progress Note Date & Time of Visit: Jun 22, 2017 at 15:41. Subjective Pt was seen and examined Sitting in bed with no distress Pt said that she feels bored She denies any chest pain, palpitation, dizziness and sob Objective Last 8 Hrs Date Time Temp Pulse Resp B/P (MAP) Pulse Ox O2 Delivery O2 Flow Rate FiO2 06/22/17 15:21 37.2 62 16 126/56 (79) 100 Room Air 06/22/17 15:00 Room Air Physical Exam: General- No acute distress Head- atraumatic Eyes- PERRL, EOMI ENT- oropharynx Neck- supple, no JVD Lungs-No wheezing Heart- regular rhythm; +murmur Abdomen- normal bowel sounds, soft Extremities- no calf tenderness Neuro- alert, oriented x 3; PERRL, EOMI Skin- warm & dry Laboratory Results: Last 24 Hours Test 06/21/17 20:47 06/22/17 06:35 06/22/17 08:09 06/22/17 12:04 Bedside Glucose 136 mg/dl 83 mg/dl 127 mg/dl Prothrombin Time 15.7 SECONDS Prothromb Time International Ratio 1.5 Sodium Level 133 mmol/L Potassium Level 4.0 mmol/L Chloride Level 98 mmol/L Carbon Dioxide Level 26 mmol/L Anion Gap 9.0 mmol/L Blood Urea Nitrogen 40 mg/dl Creatinine 5.27 mg/dl Est Creatinine Clear Calc Drug Dose 9.3 ml/min Estimated GFR () 8.8 Estimated GFR (Non- 7.6 BUN/Creatinine Ratio 7.6 Random Glucose 82 mg/dl Calcium Level 8.3 mg/dl Test 06/22/17 17:03 Bedside Glucose 240 mg/dl Assessment & Plan 71 yo F with multiple chronic medical problems presents with L hip fracture s/p mechanical fall at home. Left Hip fracture Pelvis xray showed Impacted subcapital fracture due to mechanical fall Was medically cleared by Cardio S/P day 5 Left hip hemiarthroplasty, cemented, with cable Ortho on board Pain control Hbg stable Incentive spirometry Continue PT/OT has been accepted to [facility] Stable from ortho standpoint will need update PT for ins authorization waiting for placement for discharge A fib Rate is controlled Continue Coumadin Continue Coreg and amiodarone stable ESRD ON HD Had HD done on Friday HD on Fri//Sat Vascular on board Had Fistulogram done yesterday by Dr. 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 العراقي, the perm-cath can be removed Will need re-angioplasty in the next few weeks as per Vascular ( will need to arrange as an outpatient in [place]) DM 2 Recent Hba1c 8 on 06/16 Continue Lantus 30 units Insulin coverage continue monitor BS Hyponatremia Na 130 today Monitor BMP Gross hematuria poss 2/2 infection vs stone vs malignancy as a few possible causes. Urology on board [facility] as per urology recommendation Will need a cysto in about 3 moths once stable UTI Urine cx grew Ecoli Completed course of Abx Afebrile, No leukocytosis Depression On Lexapro 20mg stable Anemia of chronic disease hgb stable Continue monitor cbc DVT px SCDs On coumadin (INR 1.5) Full Code Disposition Waiting for ins authorization to discharge to [facility] Consultants: Ortho Cardio Procedures: Fistulogram done by vascular surgeon Dr. العراقي Current Inpatient Medications: Current Inpatient Medications Medications (Trade) Dose Ordered Sig/Rayna Route Start Time Stop Time Status Last Admin Dose Admin Miscellaneous Information (Consult Glycemic Management Pharmacy) 1 ea UD PRN N/A 06/15/17 18:56 07/15/17 18:55 Ondansetron HCl (Zofran Inj) 4 mg Q6H PRN IV 06/15/17 19:15 07/15/17 19:14 Acetaminophen (Tylenol Tab) 650 mg Q6H PRN PO 06/15/17 19:15 07/15/17 19:14 06/22/17 15:03 650 MG Oxycodone HCl (Roxicodone Immediate Rel Tab) 5 mg Q4H PRN PO 06/15/17 19:15 06/29/17 19:14 06/21/17 09:36 5 MG Senna/Docusate Sodium (Senokot S Tab) 2 tab HS PO 06/15/17 21:00 07/15/17 20:59 06/21/17 21:07 2 TAB Polyethylene (Miralax Powder Packet) 17 gm DAILY PRN PO 06/15/17 19:15 07/15/17 19:14 06/20/17 09:12 17 GM Bisacodyl (Dulcolax Supp) 10 mg DAILY PRN LA 06/15/17 19:15 07/15/17 19:14 Glucose (Glucose 40% Gel) 15-30 GRAMS 15 GRAMS... UD PRN PO 06/15/17 19:30 07/15/17 19:29 Glucose (Glucose Chew Tab) 4-8 Tablets 4 Tabl... UD PRN PO 06/15/17 19:30 07/15/17 19:29 Dextrose (Dextrose 50% 50ML Syringe) 25-50ML OF 50% DW IV FOR... UD PRN IV 06/15/17 19:30 07/15/17 19:29 Glucagon (Glucagon Inj) 1 mg UD PRN SQ 06/15/17 19:30 07/15/17 19:29 Amiodarone HCl (Cordarone Tab) 200 mg QAM PO 06/16/17 09:00 07/16/17 08:59 06/22/17 08:50 200 MG Loratadine (Claritin Tab) 10 mg QAM PRN PO 06/15/17 19:45 07/15/17 19:44 06/16/17 08:32 10 MG Lorazepam (Ativan Tab) 0.5 mg TID PRN PO 06/15/17 19:45 07/15/17 19:44 06/22/17 00:32 0.5 MG Ranitidine HCl (zANTac TAB) 150 mg BID PO 06/15/17 21:00 07/15/17 20:59 06/22/17 08:50 150 MG Torsemide (Demadex Tab) 10 mg QAM PO 06/16/17 09:00 07/16/17 08:59 06/22/17 08:49 10 MG Calcium Acetate (Phoslo Cap) 667 mg TIDM PO 06/16/17 08:30 07/16/17 08:29 06/22/17 13:01 667 MG Cholecalciferol (Vitamin D Tab) 2,000 inter.unit QAM PO 06/16/17 09:00 07/16/17 08:59 06/22/17 08:50 2,000 INTER.UNIT Cyanocobalamin (Vitamin B-12 Tab) 1,000 mcg QAM PO 06/16/17 09:00 07/16/17 08:59 06/22/17 08:50 1,000 MCG Carvedilol (Coreg Tab) 50 mg BID PO 06/15/17 21:00 07/15/17 20:59 06/21/17 07:37 50 MG Atorvastatin Calcium (Lipitor Tab) 40 mg HS PO 06/15/17 21:00 07/15/17 20:59 06/21/17 21:07 40 MG Escitalopram Oxalate (Lexapro Tab) 20 mg HS PO 06/15/17 21:00 07/15/17 20:59 06/21/17 21:07 20 MG Miscellaneous Information 1 ea UD PRN N/A 06/16/17 10:30 07/16/17 10:29 Ceftriaxone Sodium 1 gm/ Dextrose 50 ml @ 100 mls/hr Q24H IV 06/16/17 11:00 06/22/17 23:59 06/22/17 10:50 100 MLS/HR Tramadol HCl (Ultram Tab) 50 mg Q12H PRN PO 06/16/17 14:30 07/16/17 14:29 06/21/17 14:10 50 MG Morphine Sulfate (MoRPHine SULFATE INJ) 4 mg Q4 PRN IV 06/17/17 12:45 07/01/17 12:44 06/20/17 09:49 4 MG Naloxone HCl (Narcan Inj) 0.4 mg Q1M PRN IV 06/17/17 12:45 07/17/17 12:44 Menthol (Nice Linwood) 1 linwood Q2H PRN PO 06/17/17 12:45 07/17/17 12:44 06/17/17 22:36 1 LINWOOD Insulin Aspart (novoLOG ASPART) SLIDING SCALE If C... ACHS SC 06/19/17 17:15 07/19/17 05:59 06/22/17 13:04 6 UNITS Warfarin Sodium (Coumadin Tab) 5 mg DAILY@16 PO 06/20/17 16:00 07/20/17 15:59 06/22/17 16:07 5 MG Insulin Glargine (Lantus Solostar Pen) 30 units HS SC 06/22/17 21:00 07/22/17 20:59
[2017-06-22 20:49] VITALS: BP 117/63; PULSE 60; O2SAT 97
[2017-06-22] MEDS: DOCUSATE SODIUM/SENNA 50/8.6MG TAB PO SCH (20:50)
[2017-06-22] MEDS: ESCITALOPRAM OXALATE 20 MG TAB PO SCH (20:54)
[2017-06-22] MEDS: ATORVASTATIN 40 MG TAB PO SCH (20:56)
[2017-06-22] MEDS ORDERED: INSULIN GLARGINE SOLOSTAR 100 UNITS/ML 3 ML PEN SC SCH (21:00)
[2017-06-22 22:54] VITALS: BP 104/60; PULSE 60; TEMP 36.5; O2SAT 96
[2017-06-23 06:49] VITALS: BP 113/69; PULSE 63; TEMP 36.6; O2SAT 94
[2017-06-23 07:53] VITALS: BP 120/70; PULSE 65; TEMP 36.3; O2SAT 100
[2017-06-23 07:57] VITALS: O2SAT 100
[2017-06-23 08:05] LABS: INR 1.9 (0.9-1.1); PROTHROMBIN TIME (PATIENT) 19.7 SECONDS (9.0-12.0)
[2017-06-23 08:46] VITALS: BP 109/61; PULSE 73; O2SAT 100
[2017-06-23 08:47] LABS: BUN/CREATININE RATIO 9.1 (10-20); CALCIUM 8.7 mg/dl (8.5-10.1); CREATININE 6.44 mg/dl (0.60-1.20); POTASSIUM 3.9 mmol/L (3.5-5.1)
[2017-06-23] MEDS: INSULIN ASPART 100 UNITS/ML 3 ML PEN SC SCH ×2 (09:20→13:15)
[2017-06-23] MEDS: CYANOCOBALAMIN 500 MCG TAB (VIT B-12) PO SCH (09:22)
[2017-06-23] MEDS: CARVEDILOL 25 MG TAB PO SCH (09:22)
[2017-06-23] MEDS: ACETAMINOPHEN 325 MG TAB PO PRN ×2 (09:22→16:26)
[2017-06-23] MEDS: CALCIUM ACETATE 667MG GELCAP PO SCH ×2 (09:22→13:12)
[2017-06-23] MEDS: CHOLECALCIFEROL 1000 INTER.UNIT TAB PO SCH (09:23)
[2017-06-23] MEDS: AMIODARONE 200 MG TAB PO SCH (09:23)
[2017-06-23] MEDS: TORSEMIDE 20 MG TAB PO SCH (09:23)
[2017-06-23] MEDS: RANITIDINE HCL 150 MG TAB PO SCH (09:23)
--- NOTE | 2017-06-23 10:59 | Pharmacy Progress Note ---
Pharmacy Glycemic Short Note 2 Date of Service Jun 23, 2017. OUTPATIENT ANTIDIABETIC REGIMEN: * Lantus 24 units qHS * Novolog 12-14 units with meals ASSESSMENT: * Pt with LOW BSG last evening of 58 mg/dl d/t insulin stacking/over-correcting BSG. Dinner insulin and HS insulin given too close together. NovoLog from dinnertime coverage did not have enough time to work and therefore HS BSG was over-corrected. * Time; Event * 1703; BSG = 240mg/dl {pre-dinner BSG} * 1911; NovoLog, 19 units, dinner coverage administered (this is almost 2 hrs after the initial BSG taken) * 2024; BSG = 243mg/dl {HS BSG} * 2051; NovoLog, 11 units of correctional insulin coverage administered * 6; BSG = 58mg/dl * AM fasting BSG in goal range. No changes need to basal insulin * Other than insulin stacking, NovoLog parameters are appropriate when given at correct intervals PLAN FOR INPATIENT GLYCEMIC CONTROL: No changes needed at this time * Basal insulin * Lantus 30 units SQ HS * Bolus insulin * NovoLog per scale ACHS or Q6hrs while NPO * Goal Range: Low 110 mg/dL - High 140 mg/dL * Correction Factor: 10 mg/dL/unit * Nutritional / Prandial insulin per carb ratio of 1 unit per 4 grams CHO consumed
[2017-06-23 15:26] VITALS: BP 103/63; PULSE 60; TEMP 36.9; O2SAT 99
[2017-06-23 16:00] VITALS: Ht 160 cm; Wt 71.7 kg
[2017-06-23] MEDS: WARFARIN SOD 5 MG TAB PO SCH (16:25)
--- NOTE | 2017-06-23 16:29 | Progress Note ---
Medicine Progress Note Date & Time of Visit: Jun 23, 2017 at 16:23. Subjective Pt was seen and examined Sitting in chair comfortable already dressed and getting ready to leave Pt said that she is still having some pain in the left hip Denies any chest pain, palpitation, dizziness and SOB Objective Last 8 Hrs Date Time Temp Pulse Resp B/P (MAP) Pulse Ox O2 Delivery O2 Flow Rate FiO2 06/23/17 15:26 36.9 60 18 103/63 (76) 99 Room Air 06/23/17 08:46 73 100 Physical Exam: General- No acute distress Head- atraumatic Eyes- PERRL, EOMI ENT- oropharynx Neck- supple, no JVD Lungs-No wheezing Heart- regular rhythm; +murmur Abdomen- normal bowel sounds, soft Extremities- no calf tenderness, left hip tenderness Neuro- alert, oriented x 3; PERRL, EOMI Skin- warm & dry Laboratory Results: Last 24 Hours Test 06/22/17 17:03 06/22/17 20:25 06/22/17 23:54 06/23/17 00:16 Bedside Glucose 240 mg/dl 243 mg/dl 55 mg/dl 58 mg/dl Test 06/23/17 00:44 06/23/17 03:03 06/23/17 06:18 06/23/17 07:33 Bedside Glucose 123 mg/dl 82 mg/dl 114 mg/dl Prothrombin Time 19.7 SECONDS Prothromb Time International Ratio 1.9 Sodium Level 133 mmol/L Potassium Level 3.9 mmol/L Chloride Level 97 mmol/L Carbon Dioxide Level 25 mmol/L Anion Gap 11.0 mmol/L Blood Urea Nitrogen 59 mg/dl Creatinine 6.44 mg/dl Est Creatinine Clear Calc Drug Dose 7.6 ml/min Estimated GFR () 6.9 Estimated GFR (Non- 6.0 BUN/Creatinine Ratio 9.1 Random Glucose 121 mg/dl Calcium Level 8.7 mg/dl Test 06/23/17 11:47 Bedside Glucose 135 mg/dl Assessment & Plan 71 yo F with multiple chronic medical problems presents with L hip fracture s/p mechanical fall at home. Left Hip fracture Pelvis xray showed Impacted subcapital fracture due to mechanical fall Was medically cleared by Cardio S/P day 6 Left hip hemiarthroplasty, cemented, with cable by Dr. Culver Ortho on board Pain control Hbg stable Incentive spirometry Continue PT/OT has been accepted to [facility] Stable from ortho standpoint Follow up with orthopedic [place] to be removed in 14 days from surgery. A fib Rate is controlled Continue Coumadin INR 1.9 today Continue Coreg and amiodarone stable ESRD ON HD HD on Fri//Fri Vascular on board Had Fistulogram done by Dr. 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 العراقي and ok to use the fistula If fistula is working fine as per Dr. العراقي, the perm-cath can be removed Will need re-angioplasty in the next few weeks as per Vascular (Please call to arrange as an outpatient in [place]) DM 2 Recent Hba1c 8 on 06/16 Continue Lantus 30 units Insulin coverage continue monitor BS Hyponatremia Na 133 today Monitor BMP Gross hematuria poss 2/2 infection vs stone vs malignancy as a few possible causes. Urology on board [facility] as per urology recommendation Will need a renal and bladder U/S pelvis as an outpatient Will need a cysto in about 3 moths once stable UTI Urine cx grew Ecoli Completed course of Abx Afebrile, No leukocytosis Depression On Lexapro 20mg stable Anemia of chronic disease hgb stable Continue monitor cbc DVT px SCDs On coumadin (INR 1.9) Full Code Disposition Discharge to [facility] today Consultants: Ortho Cardio Procedures: Fistulogram done by vascular surgeon Dr. العراقي Current Inpatient Medications: Current Inpatient Medications Medications (Trade) Dose Ordered Sig/Rayna Route Start Time Stop Time Status Last Admin Dose Admin Miscellaneous Information (Consult Glycemic Management Pharmacy) 1 ea UD PRN N/A 06/15/17 18:56 07/15/17 18:55 Ondansetron HCl (Zofran Inj) 4 mg Q6H PRN IV 06/15/17 19:15 07/15/17 19:14 Acetaminophen (Tylenol Tab) 650 mg Q6H PRN PO 06/15/17 19:15 07/15/17 19:14 06/23/17 09:22 650 MG Oxycodone HCl (Roxicodone Immediate Rel Tab) 5 mg Q4H PRN PO 06/15/17 19:15 06/29/17 19:14 06/21/17 09:36 5 MG Senna/Docusate Sodium (Senokot S Tab) 2 tab HS PO 06/15/17 21:00 07/15/17 20:59 06/22/17 20:50 2 TAB Polyethylene (Miralax Powder Packet) 17 gm DAILY PRN PO 06/15/17 19:15 07/15/17 19:14 06/20/17 09:12 17 GM Bisacodyl (Dulcolax Supp) 10 mg DAILY PRN TN 06/15/17 19:15 07/15/17 19:14 Glucose (Glucose 40% Gel) 15-30 GRAMS 15 GRAMS... UD PRN PO 06/15/17 19:30 07/15/17 19:29 06/23/17 00:00 15 GM Glucose (Glucose Chew Tab) 4-8 Tablets 4 Tabl... UD PRN PO 06/15/17 19:30 07/15/17 19:29 Dextrose (Dextrose 50% 50ML Syringe) 25-50ML OF 50% DW IV FOR... UD PRN IV 06/15/17 19:30 07/15/17 19:29 06/23/17 00:24 25 ML Glucagon (Glucagon Inj) 1 mg UD PRN SQ 06/15/17 19:30 07/15/17 19:29 Amiodarone HCl (Cordarone Tab) 200 mg QAM PO 06/16/17 09:00 07/16/17 08:59 06/23/17 09:23 200 MG Loratadine (Claritin Tab) 10 mg QAM PRN PO 06/15/17 19:45 07/15/17 19:44 06/16/17 08:32 10 MG Lorazepam (Ativan Tab) 0.5 mg TID PRN PO 06/15/17 19:45 07/15/17 19:44 06/22/17 00:32 0.5 MG Ranitidine HCl (zANTac TAB) 150 mg BID PO 06/15/17 21:00 07/15/17 20:59 06/23/17 09:23 150 MG Torsemide (Demadex Tab) 10 mg QAM PO 06/16/17 09:00 07/16/17 08:59 06/23/17 09:23 10 MG Calcium Acetate (Phoslo Cap) 667 mg TIDM PO 06/16/17 08:30 07/16/17 08:29 06/23/17 13:12 667 MG Cholecalciferol (Vitamin D Tab) 2,000 inter.unit QAM PO 06/16/17 09:00 07/16/17 08:59 06/23/17 09:23 2,000 INTER.UNIT Cyanocobalamin (Vitamin B-12 Tab) 1,000 mcg QAM PO 06/16/17 09:00 07/16/17 08:59 06/23/17 09:22 1,000 MCG Carvedilol (Coreg Tab) 50 mg BID PO 06/15/17 21:00 07/15/17 20:59 06/23/17 09:22 50 MG Atorvastatin Calcium (Lipitor Tab) 40 mg HS PO 06/15/17 21:00 07/15/17 20:59 06/22/17 20:56 40 MG Escitalopram Oxalate (Lexapro Tab) 20 mg HS PO 06/15/17 21:00 07/15/17 20:59 06/22/17 20:54 20 MG Tramadol HCl (Ultram Tab) 50 mg Q12H PRN PO 06/16/17 14:30 07/16/17 14:29 06/21/17 14:10 50 MG Morphine Sulfate (MoRPHine SULFATE INJ) 4 mg Q4 PRN IV 06/17/17 12:45 07/01/17 12:44 06/20/17 09:49 4 MG Naloxone HCl (Narcan Inj) 0.4 mg Q1M PRN IV 06/17/17 12:45 07/17/17 12:44 Menthol (Nice Linwood) 1 linwood Q2H PRN PO 06/17/17 12:45 07/17/17 12:44 06/17/17 22:36 1 LINWOOD Insulin Aspart (novoLOG ASPART) SLIDING SCALE If C... ACHS SC 06/19/17 17:15 07/19/17 05:59 06/23/17 13:15 12 UNITS Warfarin Sodium (Coumadin Tab) 5 mg DAILY@16 PO 06/20/17 16:00 07/20/17 15:59 06/22/17 16:07 5 MG Insulin Glargine (Lantus Solostar Pen) 30 units HS SC 06/22/17 21:00 07/22/17 20:59 06/22/17 20:53 30 UNITS Heparin Sodium (Porcine) (Heparin Iv Bolus) 1,000 unit TODAY@0800 IV 06/24/17 08:00 06/24/17 08:01 Heparin Sodium (Porcine) (Heparin Iv Bolus) 400 unit Q1H IV 06/24/17 08:00 06/24/17 10:01 Epoetin Aubrey (Procrit Inj) 10,000 units TODAY@0800 IV. 06/24/17 08:00 06/24/17 13:59
[2017-06-23] MEDS ORDERED: ULT50X PO ×2 (16:37→16:54)
--- NOTE | 2017-06-23 16:47 | Discharge Instructions ---
Discharge Instructions Date of Service Jun 23, 2017. Admission Reason for Admission: Hip Fracture, Left Discharge Discharge Diagnosis / Problem: Left Hip fracture, Afib, DM type 2, ESRD on HD, Hematuria, UTI Discharge Goals Goal(s): Decrease discomfort, Improve function, Improve disease control Activity Recommendations Activity Limitations: resume your previous activity (as tolerated) . Instructions / Follow-Up Instructions / Follow-Up Please follow up with your primary care provider once discharge from rehab Call to schedule follow up appointment with Ortho in 2 weeks from the day of the surgery (Surgery date was 06/17) Schedule follow up appointment with urology for the hematuria Will need renal and bladder ultrasound as outpatient in the next few months Will need to get a cysto in about 3 moths once she is recovered from the hip surgery Follow orthopedic recommendations Ok to removed the suture after 14 days from the date of the surgery CHANGE DRESSING DAILY. KEEP WOUND COVERED UNTIL SEEN BACK IN THE OFFICE. CALL WITH ANY QUESTIONS ABOUT THE WOUND . Continue physical therapy Fall precaution Continue dialysis on //Sat Ok to use the fistula in the left arm for dialysis ( If fistula is working fine , please arrange for the perm-cath to remove) Will need re-angioplasty in the next few weeks as per Vascular (Please call to arrange as an outpatient in [place]) Continue monitor INR Follow up with speech if continue to have sore throat Monitor Blood sugar closely Current Hospital Diet Patient's current hospital diet: Diabetes Type 2 Diet, Renal Diet Discharge Diet Recommended Diet: Diabetes Type 2 Diet, Renal Diet Procedures Procedures Performed: Fistulogram Percutaneous Transluminal Angioplasty Central Venous 6x8 and 7x8 Percutaneous Transluminal Angioplasty Peripheral Venous 7x8 Pending Studies Studies pending at discharge: no Laboratory Results Hemoglobin A1c Test 06/16/17 07:09 Range/Units Estimated Average Glucose 183 mg/dl Hemoglobin A1c 8.0 H 4.5-5.6 % Medical Emergencies . Who to Call and When: Medical Emergencies: If at any time you feel your situation is an emergency, please call 911 immediately. . Non-Emergent Contact Non-Emergency issues call your: Primary Care Provider Call Non-Emergent contact if: your pain is not controlled, your pain is worsening, wound has increased drainage, wound has increased redness, you have any medication questions . . "Provider Documentation" section prepared by [employer]. . Mobility Architect Manager Recommendations Mobility Architect Manager Recommendations: ACTIVITY RECOMMENDATIONS: SELF CARE INSTRUCTIONS AFTER BIPOLAR HEMIARTHROPLASTY HIP REPLACEMENT Until the incision and soft tissues around your hip have healed, there is a possibility that the hip prosthesis could dislocate. A. Observe the following precautions to prevent dislocation: 1. Don't bend your hip greater than 90 degrees. 2. Avoid crossing your legs or ankles while standing or lying. 3. Sit with your feet placed 6 inches apart. 4. When sitting, keep your knees below your hips. Sit on a firm surface, avoid deep, soft chairs and couches. Use an elevated toilet seat in the bathroom. 5. Don't bend over at the waist. Use a long handled shoehorn and a sock aid to help you put on your shoes and socks. A shoe parts caser can help you pick pulling machine tender objects that are too high or too low to reach. 6. Keep car riding to a minimum for at least one month after surgery. B. Your balance may be shaky for a while. Use crutches or a walker until directed by your doctor. C. Use hand rails when walking on stairs. D. Wear low heeled shoes with non-slip soles. E. Be sure that your floors are free of things that could trip you - throw rugs , electrical cords, small objects. Avoid wet and waxed floors, especially with crutches and canes. F. Try to walk several times a day with rest periods between. G. Continue with all the exercises taught to you in the hospital. Again, make walking a part of your daily routine. SPECIAL CARE INSTRUCTIONS: VERY IMPORTANT TO READ AND REVIEW A. You may still be at risk for phlebitis and blood clots. 1. Wear surgical stockings (JENNIE hose) for 2 weeks after surgery to improve circulation and reduce swelling. 2. Take Aspirin 81mg twice daily for 4 weeks or as directed by your doctor. This is your blood thinner. 3. High risk patients may be prescribed a stronger blood thinner if necessary. 4. If you are on Coumadin normally, your family doctor/world language teacher should monitor your blood work. Expect a phone call the day of or the day after bloodwork is drawn to adjust your dosage. B. You must take antibiotics before having dental work, bladder, bowel and other surgery. Your doctor will provide you with a permanent card to carry describing precautions. C. Call [facility] [place] if you have a fever, redness or swelling around the incision, cloudy drainage from incision, or sudden increase in pain in your hip, not relieved by your regular pain medication. D. Please call the office at if you have any concerns or questions about your operation or recovery. * YOU MAY SHOWER, NO TUB BATHS UNTIL CLEARED BY YOUR DOCTOR. * WEAR JENNIE HOSE 20 HOURS PER DAY FOR 2 WEEKS. * YOU SHOULD USE A WALKER OR CRUTCHES FOR 2-4 WEEKS. THIS WILL HELP PREVENT STRAIN ON YOUR HIP MUSCLE AND ALLOW IT TO HEAL PROPERLY. YOU MAY WEAN TO A CANE TOLERATED. * MOST PATIENTS WILL HAVE HOME NURSING FOR THERAPY. IF YOU DECIDE TO DO OUTPATIENT PHYSICAL THERAPY, PLEASE SCHEDULE THIS 3 TIMES PER WEEK. * CHANGE DRESSING DAILY. KEEP WOUND COVERED UNTIL SEEN BACK IN THE OFFICE. CALL WITH ANY QUESTIONS ABOUT THE WOUND . FOLLOW UP VISIT: If appointment is not already scheduled: Please call [facility] to make a follow-up appointment for 2 weeks after your surgery at . VTE Core Measure Inpt VTE Proph given/why not?: Warfarin (Coumadin), SCD's [place] Drug Monitoring Program Search Results: no issues identified
[2017-06-23 16:49] VITALS: BP 103/63; PULSE 60; TEMP 36.9; O2SAT 99
--- NOTE | 2017-06-23 17:04 | Discharge Summary ---
Discharge Summary Date of Service Jun 23, 2017. Discharge Summary Admission Date: Jun 15, 2017 at 17:13 Discharge Date: Jun 23, 2017 Discharge Disposition: care home facility Principal Diagnosis: Left Hip fracture Secondary Diagnoses/Problems: A fib ESRD on HD DM type 2 UTI Hematuria Anemia of chronic disease Hyponatremia Depression Procedures: S/P Fistulogram done by vascular surgeon Dr. العراقي S/P Left hip hemiarthroplasty, cemented, with cable Consultations: Ortho Cardio Medication Reconciliation New Medications: Tramadol HCl (Tramadol HCl) 50 Mg Tab 25-50 MG PO Q12H PRN for Pain for 5 Days, #10 TAB hold for drowsiness Continued Medications: Acetaminophen (Tylenol) 500 Mg Tab 500 MG PO UD PRN for Pain or Fever, TAB TAKE PER PACKAGE DIRECTIONS Amiodarone HCl (Amiodarone HCl) 200 Mg Tab 200 MG PO QAM Aspirin (Aspirin Ec) 81 Mg Tab 81 MG PO QAM Atorvastatin (Atorvastatin Calcium) 40 Mg Tab 40 MG PO DAILY, #30 Calcium Acetate (Phosphate Bin (Calcium Acetate) 667 Mg Tab 1 TAB PO TIDM, #360 Carvedilol (Coreg) 25 Mg Tab 50 MG PO BIDM, TAB TAKE THIS MEDICATION WITH MORNING AND EVENING MEALS Cholecalciferol (Vitamin D3) 2,000 Unit Cap 2000 INTER.UNIT PO QAM, CAP Cyanocobalamin (Vitamin B12) 1,000 Mcg Tab 1000 MCG PO QAM Escitalopram Oxalate (Lexapro) 20 Mg Tab 1 TAB PO DAILY for 90 Days, #90 TAB 3 Refills Insulin Aspart (Novolog Flexpen) 100 Units/Ml Inj 12-14 UNITS SC TIDM COVERAGE DIRECTED BY SLIDING SCALE Insulin Glargine (Lantus Solostar) 100 Unit/Ml Inj 24 UNITS SQ HS Loratadine (Claritin) 10 Mg Tab 10 MG PO QAM PRN for Allergy Symptoms Lorazepam (Ativan) 0.5 Mg Tab 0.5 MG PO TID PRN for Anxiety/Agitation, TAB Multiple Vitamins W/ Minerals (Womens Multi Vitamin & Mi) 1 Tab Tab 1 TAB PO DAILY Probiotic Product (Probiotic) 1 Tab Tab 1 TAB PO QAM Pyridoxine (Vitamin B6) 100 Mg Tab 100 MG PO DAILY, TAB Ranitidine HCl (Ranitidine HCl) 150 Mg Tab 150 MG PO BID Torsemide (Torsemide) 20 Mg Tab 10 MG PO QAM TAKE HALF A TABLET (10 MG) DAILY, MAY INCREASE TO WHOLE TABLET (20 MG) FOR INCREASED EDEMA Warfarin Sodium (Warfarin Sodium) 4 Mg Tab 4 MG PO 6XWK, TAB TAKES EVERY DAY EXCEPT SATURDAYS, OR OTHERWISE DIRECTED TO TAKE BY ANTICOAGULATION CLINIC/MD Warfarin Sodium (Warfarin Sodium) 4 Mg Tab 6 MG PO WK, TAB TAKES ON SATURDAYS ONLY, OR OTHERWISE DIRECTED TO TAKE BY ANTICOAGULATION CLINIC/MD Admission Information HPI (per Admitting provider): 71 yo diabetic female s/p ICD on hemodialysis presents to the ER with L hip pain after a mechanical fall earlier this evening. She turned quickly to sit on her couch and landed on the floor on her left side instead. Workup in the ER reveals an impacted L subcapital femoral fracture. She reports that at baseline she can ambulate without a cane or walker, and states that she has not had any chest pain or shortness of breath with exertion recently. She is able to wash her dishes and reports that she can climb a flight of stairs without stopping she just has to move sideways. She denies any fevers, chills, cough, congestion, headaches. She reports some dysuria a few days ago and some gross hematuria was noticed by her in the last few days which has seemed to lighten up somewhat. She has suprapubic discomfort on exam. She was noted to have an blood sugar 433 in the ER. She states that she didn't take her insulin last night after coming home from dialysis as she didn't feel well. She then forgot to take it prior to going to [employer]ondoism this morning and shortly after had the fall so missed her insulin today, too. She reports uncontrolled pain in the hip right now. She denies any numbness or tingling, denies blood in her stool and denies nausea, vomiting or diarrhea. She does report loose stool a few days ago but this was in response to a laxative and has since cleared up. She has a history of atrial fibrillation on coumadin and amiodarone and Coreg. She reports having a blood clot just after delivering her son 50 years ago that was in her leg. She has a h/o idiopathic cardiomyopathy with NYHA Class III systolic CHF s/p Bi-V ICD, h/o pericardial effusion s/p window Mar 2015, vegetation on pacemaker lead seeded from [employer] viridans s/p IV ceftriaxone and oral amoxicillin (post-treatment blood cultures were negative), cardiac cath in January 2006 with normal coronary arteries, h/o of apical LV thrombus, h /o TIA, and h/o MINAL with refusal of CPAP therapy. Physical Exam (per Admitting): General Appearance: WD/WN, + moderate distress Head: normocephalic, atraumatic Eyes: normal inspection, PERRL, sclerae normal ENT: hearing grossly normal, pharynx normal Neck: supple, no JVD, trachea midline Respiratory/Chest: lungs clear, normal breath sounds, no respiratory distress, no accessory muscle use, + pertinent finding (tunneled catheter in place just above ICD -L anterior chest wall) Cardiovascular: regular rate, rhythm, no edema, no gallop, no JVD, no murmur Abdomen/GI: normal bowel sounds, soft, + tenderness (suprapubic) Back: + pertinent finding (could not be examined 2/2 severe pain with minimal movement. ) Extremities/Musculoskelatal: normal inspection, no pedal edema, + pertinent finding (decreased ROM of lower extremities 2/2 pain from fracture. 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 ) Skin: normal color, warm/dry, no rash Hospital Course 71 yo F with multiple chronic medical problems presents with L hip fracture s/p mechanical fall at home. Left Hip fracture Pelvis xray showed Impacted subcapital fracture due to mechanical fall Was medically cleared by Cardio S/P day 6 Left hip hemiarthroplasty, cemented, with cable by Dr. Culver Ortho on board Pain control Hbg stable Incentive spirometry Continue PT/OT has been accepted to [facility] Stable from ortho standpoint Follow up with orthopedic Liguori to be removed in 14 days from surgery. A fib Rate is controlled Continue Coumadin INR 1.9 today Continue Coreg and amiodarone stable ESRD ON HD HD on Fri//Fri Vascular on board Had Fistulogram done by Dr. 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 العراقي and ok to use the fistula If fistula is working fine as per Dr. العراقي, the perm-cath can be removed Will need re-angioplasty in the next few weeks as per Vascular (Please call to arrange as an outpatient in [place]) DM 2 Recent Hba1c 8 on 06/16 Continue Lantus 30 units Insulin coverage continue monitor BS Hyponatremia Na 133 today Monitor BMP Gross hematuria poss 2/2 infection vs stone vs malignancy as a few possible causes. Urology on board Sher D/Sky as per urology recommendation Will need a renal and bladder U/S pelvis as an outpatient Will need a cysto in about 3 moths once stable UTI Urine cx grew Ecoli Completed course of Abx Afebrile, No leukocytosis Depression On Lexapro 20mg stable Anemia of chronic disease hgb stable Continue monitor cbc DVT px SCDs On coumadin (INR 1.9) Full Code Disposition Discharge to [facility] today Total time spent on discharge = 40 minutes This includes examination of the patient, discharge planning, medication reconciliation, and communication with other providers. Discharge Instructions Discharge Instructions Date of Service Jun 23, 2017. Admission Reason for Admission: Hip Fracture, Left Discharge Discharge Diagnosis / Problem: Left Hip fracture, Afib, DM type 2, ESRD on HD, Hematuria, UTI Discharge Goals Goal(s): Decrease discomfort, Improve function, Improve disease control Activity Recommendations Activity Limitations: resume your previous activity (as tolerated) . Instructions / Follow-Up Instructions / Follow-Up Please follow up with your primary care provider once discharge from rehab Call [phone] to schedule follow up appointment with Ortho in 2 weeks from the day of the surgery (Surgery date was 06/17) Schedule follow up appointment with urology for the hematuria Will need renal and bladder ultrasound as outpatient in the next few months Will need to get a cysto in about 3 moths once she is recovered from the hip surgery Follow orthopedic recommendations Ok to removed the suture after 14 days from the date of the surgery CHANGE DRESSING DAILY. KEEP WOUND COVERED UNTIL SEEN BACK IN THE OFFICE. CALL WITH ANY QUESTIONS ABOUT THE WOUND . Continue physical therapy Fall precaution Continue dialysis on //Sat Ok to use the fistula in the left arm for dialysis ( If fistula is working fine , please arrange for the perm-cath to remove) Will need re-angioplasty in the next few weeks as per Vascular (Please call to arrange as an outpatient in [place]) Continue monitor INR Follow up with speech if continue to have sore throat Monitor Blood sugar closely Current Hospital Diet Patient's current hospital diet: Diabetes Type 2 Diet, Renal Diet Discharge Diet Recommended Diet: Diabetes Type 2 Diet, Renal Diet Procedures Procedures Performed: Fistulogram Percutaneous Transluminal Angioplasty Central Venous 6x8 and 7x8 Percutaneous Transluminal Angioplasty Peripheral Venous 7x8 Pending Studies Studies pending at discharge: no Laboratory Results Hemoglobin A1c Test 06/16/17 07:09 Range/Units Estimated Average Glucose 183 mg/dl Hemoglobin A1c 8.0 H 4.5-5.6 % Medical Emergencies . Who to Call and When: Medical Emergencies: If at any time you feel your situation is an emergency, please call 911 immediately. . Non-Emergent Contact Non-Emergency issues call your: Primary Care Provider Call Non-Emergent contact if: your pain is not controlled, your pain is worsening, wound has increased drainage, wound has increased redness, you have any medication questions . . "Provider Documentation" section prepared by Nico Mclaughlin. . Licensed Tax Consultant Recommendations Licensed Tax Consultant Recommendations: ACTIVITY RECOMMENDATIONS: SELF CARE INSTRUCTIONS AFTER BIPOLAR HEMIARTHROPLASTY HIP REPLACEMENT Until the incision and soft tissues around your hip have healed, there is a possibility that the hip prosthesis could dislocate. A. Observe the following precautions to prevent dislocation: 1. Don't bend your hip greater than 90 degrees. 2. Avoid crossing your legs or ankles while standing or lying. 3. Sit with your feet placed 6 inches apart. 4. When sitting, keep your knees below your hips. Sit on a firm surface, avoid deep, soft chairs and couches. Use an elevated toilet seat in the bathroom. 5. Don't bend over at the waist. Use a long handled shoehorn and a sock aid to help you put on your shoes and socks. A program/music director can help you order picker/assembler objects that are too high or too low to reach. 6. Keep car riding to a minimum for at least one month after surgery. B. Your balance may be shaky for a while. Use crutches or a walker until directed by your doctor. C. Use hand rails when walking on stairs. D. Wear low heeled shoes with non-slip soles. E. Be sure that your floors are free of things that could trip you - throw rugs , electrical cords, small objects. Avoid wet and waxed floors, especially with crutches and canes. F. Try to walk several times a day with rest periods between. G. Continue with all the exercises taught to you in the hospital. Again, make walking a part of your daily routine. SPECIAL CARE INSTRUCTIONS: VERY IMPORTANT TO READ AND REVIEW A. You may still be at risk for phlebitis and blood clots. 1. Wear surgical stockings (JENNIE hose) for 2 weeks after surgery to improve circulation and reduce swelling. 2. Take Aspirin 81mg twice daily for 4 weeks or as directed by your doctor. This is your blood thinner. 3. High risk patients may be prescribed a stronger blood thinner if necessary. 4. If you are on Coumadin normally, your family doctor/crinkling machine operator should monitor your blood work. Expect a phone call the day of or the day after bloodwork is drawn to adjust your dosage. B. You must take antibiotics before having dental work, bladder, bowel and other surgery. Your doctor will provide you with a permanent card to carry describing precautions. C. Call [facility] if you have a fever, redness or swelling around the incision, cloudy drainage from incision, or sudden increase in pain in your hip, not relieved by your regular pain medication. D. Please call the office at if you have any concerns or questions about your operation or recovery. * YOU MAY SHOWER, NO TUB BATHS UNTIL CLEARED BY YOUR DOCTOR. * WEAR JENNIE HOSE 20 HOURS PER DAY FOR 2 WEEKS. * YOU SHOULD USE A WALKER OR CRUTCHES FOR 2-4 WEEKS. THIS WILL HELP PREVENT STRAIN ON YOUR HIP MUSCLE AND ALLOW IT TO HEAL PROPERLY. YOU MAY WEAN TO A CANE TOLERATED. * MOST PATIENTS WILL HAVE HOME NURSING FOR THERAPY. IF YOU DECIDE TO DO OUTPATIENT PHYSICAL THERAPY, PLEASE SCHEDULE THIS 3 TIMES PER WEEK. * CHANGE DRESSING DAILY. KEEP WOUND COVERED UNTIL SEEN BACK IN THE OFFICE. CALL WITH ANY QUESTIONS ABOUT THE WOUND . FOLLOW UP VISIT: If appointment is not already scheduled: Please call [facility] to make a follow-up appointment for 2 weeks after your surgery at . VTE Core Measure Inpt VTE Proph given/why not?: Warfarin (Coumadin), SCD's [place] Drug Monitoring Program Search Results: no issues identified
[2017-06-24] MEDS ORDERED: HEPARIN SOD (PORCINE) 1000 UNIT/ML 10 ML VIAL IV SCH ×2 (08:00)
[2017-06-24] MEDS ORDERED: EPOETIN ALFA 10,000 UNITS/ML VIAL IV. SCH (08:00)
== END 2017-06-23 17:20 | DRG 469 ==
LOC: EDBD 14:59 → C.EDB 15:00 → C.MSN 17:13 → ENRESERV 17:26
PROVIDERS: ADMIT Hospitalist; ATTEND Internal Medicine
PROC: 0SRS0J9 Replacement of Left Hip Joint, Femoral Surface with Synthetic Substitute, Cemented, Open Approach (ICD-10-PCS; principal; 2017-06-17 09:45)
PROC: 03W Upper Arteries, Revision (ICD-10-PCS; 2017-06-19)
DX: S72.012A Unspecified intracapsular fracture of left femur, initial encounter for closed fracture (principal); N18.6 End stage renal disease; I42.9 Cardiomyopathy, unspecified; I50.22 Chronic systolic (congestive) heart failure; N39.0 Urinary tract infection, site not specified; I13.2 Hypertensive heart and chronic kidney disease with heart failure and with stage 5 chronic kidney disease, or end stage renal disease; T82.858A Stenosis of other vascular prosthetic devices, implants and grafts, initial encounter; E87.1 Hypo-osmolality and hyponatremia; I48.0 Paroxysmal atrial fibrillation; E11.22 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 diabetic chronic kidney disease; E78.5 Hyperlipidemia, unspecified; F32.9 Major depressive disorder, single episode, unspecified; K21.9 Gastro-esophageal reflux disease without esophagitis; E11.65 Type 2 diabetes mellitus with hyperglycemia; R31.0 Gross hematuria; D63.1 Anemia in chronic kidney disease; B96.20 Unspecified Escherichia coli [E. coli] as the cause of diseases classified elsewhere; Z79.01 Long term (current) use of 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; Z79.4 Long term (current) use of insulin; Z79.82 Long term (current) use of aspirin; Z79.899 Other long term (current) drug therapy; Z83.3 Family history of diabetes mellitus; Z88.2 Allergy status to sulfonamides; Z99.2 Dependence on renal dialysis; Z86.73 Personal history of transient ischemic attack (TIA), and cerebral infarction without residual deficits; W18.30XA Fall on same level, unspecified, initial encounter; Z95.0 Presence of cardiac pacemaker; Y83.2 Surgical operation with anastomosis, bypass or graft as the cause of abnormal reaction of the patient, or of later complication, without mention of misadventure at the time of the procedure

== ENCOUNTER 2017-07-12 14:26 | Emergency (ER) | payer OTHER ==
[~2017-07-12] VITALS: Ht 162.6 cm; Wt 76.0 kg
[~2017-07-12 14:26] MED LIST changes: -ATV5X PO; -CALC0.2510 PO; -CTP1CL PO; -DMD20 PO; +ESCI1TAB18 PO; -HYDR100T3 PO; +LORA-741 PO; -LXP10 PO; -POLY335019 PO; +TORS20TA3 PO; +ULT50X PO
[2017-07-12] MEDS ORDERED: GELATIN SPONGE 12-7MM ONE ×2 (14:33)
[2017-07-12 14:57] VITALS: Ht 162.6 cm; Wt 76.0 kg
[2017-07-12] MEDS ORDERED: MOUTLIQ83 PO (15:04)
[2017-07-12] MEDS ORDERED: TRAM-10 PO (15:24)
[2017-07-12] MEDS ORDERED: BENZ1LOZ PO (15:26)
[2017-07-12] MEDS ORDERED: IPRA-64 INH (15:29)
[2017-07-12] MEDS ORDERED: SACC250C PO (16:00)
[2017-07-12] MEDS ORDERED: MED PASS SUPPLEMENT PO (16:05)
[2017-07-12] MEDS ORDERED: ZINC40OI13 TOP (16:15)
[2017-07-12 16:28] LABS: CALCIUM 8.9 mg/dl (8.5-10.1); CREATININE 3.13 mg/dl (0.60-1.20)
[2017-07-12 16:53] LABS: BASO % 0.6 %; BASO ABS # 0.04 K/uL (0-0.2); EOS % 2.3 %; EOS ABS # 0.15 K/uL (0-0.5); HEMATOCRIT 28.4 % (37-47); HEMOGLOBIN 9.3 g/dL (12.0-16.0); IG# 0.03 K/uL (0.00-0.02); LYMPH ABS # 0.85 K/uL (1.2-3.4); MEAN CELL VOLUME 95.6 fL (80-100); MEAN CORPUSCULAR HEMOGLOBIN 31.3 pg (25-34); MEAN CORPUSCULAR HGB CONC 32.7 g/dl (32-36); MONO % 10.4 %; MONO ABS # 0.68 K/uL (0.11-0.59); NEUT % 73.2 %; NEUT ABS # 4.78 K/uL (1.4-6.5); PLATELET COUNT 180 K/uL (130-400); RED CELL DISTRIBUTION WIDTH CV 14.8 % (11.5-14.5); RED CELL DISTRIBUTION WIDTH SD 51.5 fL (36.4-46.3); WHITE BLOOD COUNT 6.53 K/uL (4.8-10.8)
[2017-07-12 18:07] LABS: INR 2.4 (0.9-1.1)
[2017-07-12 18:11] LABS: PTT PATIENT 80.7 SECONDS (21.0-31.0)
--- NOTE | 2017-07-12 20:11 | DIAGNOSTIC IMAGING REPORT ---
DUPLEX HEMODIALYSIS ACCESS CLINICAL HISTORY: 71 years-old Female presenting with LUE bleeding from graft . TECHNIQUE: Real-time grayscale ultrasound imaging of the left upper extremity dialysis graft was performed. Color and spectral Doppler were also performed. COMPARISON: 04/08/2016. FINDINGS: A dialysis graft is noted in the left upper extremity. The graft is patent. The arterial inflow vessel is patent beyond the anastomosis. The venous outflow is patent. At the arterial inflow, peak systolic velocity within the graft measures 422 cm/s. In the midportion of the graft, peak systolic velocity measures 172-179 cm/s. In the distal portion of the graft, peak systolic velocity measures 137-160 cm/s. At the venous outflow velocity measures 46-74 cm/s with arterialized waveforms. In the antecubital fossa immediately superficial to the graft is a complex partially hypoechoic partially anechoic collection. The anechoic portion does not demonstrate color Doppler flow. This avascular collection extends into the proximal forearm and is consistent with hematoma. IMPRESSION: 1. Hematoma in the antecubital fossa superficial to the graft. No pseudoaneurysm. 2. Mild arterial inflow stenosis, which is of uncertain significance. No significant venous outflow stenosis. Electronically signed by: Enrrique Davies M.D. 07/12/2017 8:10 PM Dictated Date/Time: 07/12/2017 7:51 PM
[2017-07-12 20:40] VITALS: BP 125/58; PULSE 60; TEMP 37.1; O2SAT 96
--- NOTE | 2017-07-12 20:52 | EMERGENCY ROOM VISIT NOTE ---
History Report prepared by Maurisio: Nuris Singh Under the Supervision of: Dr. Guanakito Sanchez D.O. First contact with patient: 14:29 Stated Complaint: BLEEDING FROM DIALYSIS PORT History of Present Illness The patient is a 71 year old female who presents to the Emergency Room with complaints of persistent bleeding from the dialysis port on her left arm that began a little over an hour ago. She notes that she had been receiving dialysis prior to her bleeding. The patient states that she had a graft put in place 5 months ago, noting she started using it 2 weeks ago. She has no pain. She notes she gets on dialysis and had just got home from the halfway. The bleeding started at that point. She placed a bandage over top and called 911. EMS arrived and placed a pressure dressing and transferred her to the ER. Pt denies headache, change in vision, fevers, chest pain, shortness of breath, nausea, vomiting, diarrhea, pain with urination, and melena. Source of History: patient Onset: a little over an hour Position: arm (left) Quality: other (bleeding) Timing: other (persistent) Review of Systems See HPI for pertinent positives & negatives. A total of 10 systems reviewed and were otherwise negative. 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 (20) Gastroesophageal reflux disease (21) Gram-positive bacteremia (22) H/O TIA (transient ischemic attack) and stroke (23) Heart failure (24) Hematoma of arm (25) Hip fracture, left (26) Hip fracture, left (27) Hyperparathyroidism (28) Hypertensive urgency (29) Hypertensive urgency (30) Hypertensive urgency (31) Hysterectomy (32) ICD (33) Left bundle branch block (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 (35) Pericardial effusion (36) Proteinuria (37) PVD (peripheral vascular disease) (38) Slow transit constipation (39) Weakness Surgical Problems: (1) H/O dilation and curettage (2) S/P appy (3) S/P pericardial surgery Family History Diabetes mellitus Heart disease Social History Smoking Status: Never Smoker Alcohol Use: none Drug Use: none Marital Status: , Housing Status: lives with family Occupation Status: retired Current/Historical Medications Scheduled Amiodarone HCl (Amiodarone HCl), 200 MG PO QAM Aspirin (Aspirin Ec), 81 MG PO QAM Atorvastatin (Atorvastatin Calcium), 40 MG PO DAILY Calcium Acetate (Phosphate Bin (Calcium Acetate), 1 TAB PO TID Carvedilol (Coreg), 50 MG PO BIDM Cholecalciferol (Vitamin D3), 2,000 INTER.UNIT PO QAM Cyanocobalamin (Vitamin B12), 1,000 MCG PO QAM Escitalopram Oxalate (Lexapro), 20 MG PO DAILY Insulin Aspart (Novolog Flexpen), 12 UNITS SC TIDM Insulin Glargine (Lantus Solostar), 24 UNITS SQ HS Mouthwashes (Biotene Dry Mouth Oral Ri), 15 ML PO QID Multiple Vitamins W/ Minerals (Womens Multi Vitamin & Mi), 1 TAB PO DAILY Pyridoxine (Vitamin B6), 100 MG PO DAILY Ranitidine HCl (Ranitidine HCl), 150 MG PO BID Saccharomyces Boulardii (Florastor), 250 MG PO DAILY Torsemide (Torsemide), 10 MG PO QAM Warfarin Sodium (Warfarin Sodium), 4 MG PO DAILY Zinc Oxide (Topical) (Desitin), 1 APPLN TOP UD [Med Pass Supplement], 90 ML PO UD Scheduled PRN Acetaminophen (Tylenol), 500 MG PO Q6H PRN for Pain or Fever Ipratropium-Albuterol (Duoneb), 1 TREATMENT INH Q4H PRN for Wheezing Lorazepam (Ativan), 0.5 MG PO TID PRN for Anxiety/Agitation Tramadol (Ultram), 25-75 MG PO Q12 PRN for Pain Allergies Coded Allergies: Adhesives (Verified Allergy, Unknown, RXN TO ADHESIVE ON NITRO PATCH, ) Bell Buckle (Verified Allergy, Unknown, UNKNOWN, 07/12/17) DESIREE Inhibitors (Verified Adverse Reaction, Mild, COUGH, 07/12/17) CAUSES COUGH Diphenhydramine (Verified Adverse Reaction, Mild, VERY WEAK, CHF, 07/12/17 ) Lisinopril (Verified Adverse Reaction, Mild, COUGH, 07/12/17) Nitroglycerin (Verified Adverse Reaction, Mild, HEADACHE/NAUSEA, 07/12/17) Sulfa Antibiotics (Verified Adverse Reaction, Mild, "KNOCKS ME OUT", 07/12) Amlodipine (Verified Adverse Reaction, Unknown, RETAIN FLUID , 07/12/17) Physical Exam Vital Signs Date Time Temp Pulse Resp B/P (MAP) Pulse Ox O2 Delivery O2 Flow Rate FiO2 07/12/17 20:40 37.1 60 14 125/58 96 07/12/17 20:09 60 14 125/58 96 Room Air 07/12/17 18:33 66 20 121/50 94 Room Air 07/12/17 16:58 61 20 121/49 96 Room Air 07/12/17 14:57 37.1 66 20 138/62 100 Room Air Physical Exam GENERAL: Sitting up in bed, covered in blood on left side, alert, chronically ill- appearing, well nourished, no distress, non-toxic EYE EXAM: normal conjunctiva. OROPHARYNX: no exudate, no erythema, lips, buccal mucosa, and tongue normal and mucous membranes are moist NECK: supple, no nuchal rigidity, no adenopathy, non-tender LUNGS: Clear to auscultation. Normal chest wall mechanics HEART: no murmurs, S1 normal and S2 normal CHEST: Central access over left subclavian is clean, dry, and intact. ABDOMEN: abdomen soft, non-tender, normo-active bowel sounds, no masses, no rebound or guarding. BACK: Back is symmetrical on inspection and there is no deformity, no midline tenderness, no CVA tenderness. SKIN: no rashes and no bruising UPPER EXTREMITIES: Left forearm with large bandage in place was removed, pulsatile bleeding from local spot. No bleeding with pressure. Upper extremities are grossly normal. Positive thrill. Positive bruit. LOWER EXTREMITIES: No pitting edema. NEURO EXAM: Normal sensorium, cranial nerves II-XII grossly intact, normal speech, no gross weakness of arms, no gross weakness of legs. Medical Decision & Procedures ER Provider Diagnostic Interpretation: Radiology results as stated below per my review and the radiologist's interpretation: DUPLEX HEMODIALYSIS ACCESS CLINICAL HISTORY: 71 years-old Female presenting with LUE bleeding from graft . TECHNIQUE: Real-time grayscale ultrasound imaging of the left upper extremity dialysis graft was performed. Color and spectral Doppler were also performed. COMPARISON: 04/08/2016. FINDINGS: A dialysis graft is noted in the left upper extremity. The graft is patent. The arterial inflow vessel is patent beyond the anastomosis. The venous outflow is patent. At the arterial inflow, peak systolic velocity within the graft measures 422 cm/s. In the midportion of the graft, peak systolic velocity measures 172-179 cm/s. In the distal portion of the graft, peak systolic velocity measures 137-160 cm/s. At the venous outflow velocity measures 46-74 cm/s with arterialized waveforms. In the antecubital fossa immediately superficial to the graft is a complex partially hypoechoic partially anechoic collection. The anechoic portion does not demonstrate color Doppler flow. This avascular collection extends into the proximal forearm and is consistent with hematoma. IMPRESSION: 1. Hematoma in the antecubital fossa superficial to the graft. No pseudoaneurysm. 2. Mild arterial inflow stenosis, which is of uncertain significance. No significant venous outflow stenosis. Electronically signed by: Enrrique Davies M.D. 07/12/2017 8:10 PM Dictated Date/Time: 07/12/2017 7:51 PM Laboratory Results 07/12/17 16:43 Red Blood Count 2.97, Mean Corpuscular Volume 95.6, Mean Corpuscular Hemoglobin 31.3, Mean Corpuscular Hemoglobin Concent 32.7, Mean Platelet Volume 10.0, Neutrophils (%) (Auto) 73.2, Lymphocytes (%) (Auto) 13.0, Monocytes (%) (Auto) 10.4, Eosinophils (%) (Auto) 2.3, Basophils (%) (Auto) 0.6, Neutrophils # (Auto ) 4.78, Lymphocytes # (Auto) 0.85, Monocytes # (Auto) 0.68, Eosinophils # (Auto ) 0.15, Basophils # (Auto) 0.04 07/12/17 15:19 07/12/17 16:43 Test 07/12/17 15:19 07/12/17 16:43 07/12/17 17:32 Anion Gap 8.0 mmol/L (3-11) Est Creatinine Clear Calc Drug Dose 16.5 ml/min Estimated GFR () 16.5 Estimated GFR (Non- 14.3 BUN/Creatinine Ratio 10.3 (10-20) Calcium Level 8.9 mg/dl (8.5-10.1) White Blood Count 6.53 K/uL (4.8-10.8) Red Blood Count 2.97 M/uL (4.2-5.4) Hemoglobin 9.3 g/dL (12.0-16.0) Hematocrit 28.4 % (37-47) Mean Corpuscular Volume 95.6 fL (80-100) Mean Corpuscular Hemoglobin 31.3 pg (25-34) Mean Corpuscular Hemoglobin Concent 32.7 g/dl (32-36) Platelet Count 180 K/uL (130-400) Mean Platelet Volume 10.0 fL (7.4-10.4) Neutrophils (%) (Auto) 73.2 % Lymphocytes (%) (Auto) 13.0 % Monocytes (%) (Auto) 10.4 % Eosinophils (%) (Auto) 2.3 % Basophils (%) (Auto) 0.6 % Neutrophils # (Auto) 4.78 K/uL (1.4-6.5) Lymphocytes # (Auto) 0.85 K/uL (1.2-3.4) Monocytes # (Auto) 0.68 K/uL (0.11-0.59) Eosinophils # (Auto) 0.15 K/uL (0-0.5) Basophils # (Auto) 0.04 K/uL (0-0.2) RDW Standard Deviation 51.5 fL (36.4-46.3) RDW Coefficient of Variation 14.8 % (11.5-14.5) Immature Granulocyte % (Auto) 0.5 % Immature Granulocyte # (Auto) 0.03 K/uL (0.00-0.02) Prothrombin Time 24.5 SECONDS (9.0-12.0) Prothromb Time International Ratio 2.4 (0.9-1.1) Activated Partial Thromboplast Time 80.7 SECONDS (21.0-31.0) Partial Thromboplastin Ratio 3.1 Laboratory results per my review. ED Course ED COURSE: Vital signs were reviewed and showed normal vitals. The patients medical record was reviewed The above diagnostic studies were performed and reviewed. ED treatments and interventions as stated above. 1428: The patient was evaluated in room C5. A complete history and physical examination was performed. 1433: Ordered Gelatin 2ea. 1517: I reevaluated the patient, who was resting with no active bleeding. 1547: I reviewed the patient's case with Dr.Oncu [facility] [place]. He will evaluate the patient for further management. 1627: I reevaluated the patient, who is resting with no active bleeding. Removed dressing completely. Left hand is slightly larger and swollen than right , was redressed with non-constrictive dressing. 1730: I reevaluated the patient, she started bleeding again. 1833: I reevaluated the patient, who was resting. Her bleeding stopped. 1950: I reevaluated the patient, she is no longer bleeding and is feeling significantly better. 2014: Upon reevaluation, the patient is resting.I discussed my findings with the patient and she understands and agrees with the treatment plan. She was discharged home. Medical Decision The patient is a 71 year old female who presents to the ED with complaints of persistent bleeding from dialysis port. Patient had dialysis earlier this morning and around 1 PM her access site started bleeding. Upon my evaluation she is bleeding from the needle insertion site. Pressure was held. Dressing was placed and we initially obtained hemostasis. Just prior to discharge she did start bleeding again. Dressing was replaced. Labs resulted and she has a therapeutic INR 2.2. PTT was elevated. Hemoglobin stable with previous. Ultrasound shows no significant abnormality of the graft site. She rested in the ER for an additional 2 hours without any active bleeding following the ultrasound. I did leave the quick clot in place with a loose dressing. Patient was discharged following strict instructions on how to take this off tomorrow and the follow-up as an outpatient with her PCP. Discussed with Pt concerning signs and symptoms to watch out for. Pt was instructed to follow up with their PCP and discussed with the patient their option to return to the ED at anytime for persistent or worsening symptoms. The appropriate anticipatory guidance and out-patient management, including indications for return to the emergency department, were explained at length to the patient and understood. Medication Reconcilliation Current Medication List: was personally reviewed by me Impression Primary Impression: Bleeding from dialysis shunt Scribe Attestation The scribe's documentation has been prepared under my direction and personally reviewed by me in its entirety. I confirm that the note above accurately reflects all work, treatment, procedures, and medical decision making performed by me. Departure Information Dispostion Home / Self-Care Referrals No Doctor, Assigned (PCP) Forms HOME CARE DOCUMENTATION FORM, IMPORTANT VISIT INFORMATION, WORK / SCHOOL INSTRUCTIONS Additional Instructions Please follow up with your primary care doctor with in the next 24 hours. Any worsening of your symptoms, please return to the ED immediately. This includes any recurrence of bleeding, redness around the site, numbness in your arm, increased swelling in your arm, passing out, dizziness, lightheadedness, fevers greater than 100.4, worsening pain, or any other concerning signs or symptoms from your standpoint. Tomorrow midday please remove the dressing on her left arm slowly. He can apply a little water if it is sticking to your arm. If this does rebleed please hold pressure at the site where it is bleeding. At that time please return immediately to the ER if you're unable to control the bleeding. Problem Qualifiers Primary Impression: Bleeding from dialysis shunt Encounter type: initial encounter Qualified Codes: T82.838A - Hemorrhage due to vascular prosthetic devices, implants and grafts, initial encounter
== END 2017-07-12 20:41 | disposition home or self-care (01) ==
LOC: EDBD 14:26 → C.EDC 14:27
DX: T82.838A Hemorrhage due to vascular prosthetic devices, implants and grafts, initial encounter (principal); X58.XXXA Exposure to other specified factors, initial encounter; N17.9 Acute kidney failure, unspecified; D64.9 Anemia, unspecified; F41.9 Anxiety disorder, unspecified; I48.91 Unspecified atrial fibrillation; I50.9 Heart failure, unspecified; N18.3 Chronic kidney disease, stage 3 (moderate); F32.9 Major depressive disorder, single episode, unspecified; E11.9 Type 2 diabetes mellitus without complications; E78.5 Hyperlipidemia, unspecified; N18.6 End stage renal disease; Z99.2 Dependence on renal dialysis; K21.9 Gastro-esophageal reflux disease without esophagitis; I10 Essential (primary) hypertension; E21.3 Hyperparathyroidism, unspecified; Z79.01 Long term (current) use of 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; Z51.81 Encounter for therapeutic drug level monitoring; I73.9 Peripheral vascular disease, unspecified; Z83.3 Family history of diabetes mellitus; Z82.49 Family history of ischemic heart disease and other diseases of the circulatory system; Z79.82 Long term (current) use of aspirin; Z79.4 Long term (current) use of insulin

== ENCOUNTER 2017-07-19 14:11 | Emergency (ER) | payer OTHER ==
[~2017-07-19] VITALS: Ht 160 cm; Wt 69.2 kg
[~2017-07-19 14:11] MED LIST changes: +DMD20 PO; +IPRASOL4 INH; -LORA10TA6 PO; +MED PASS SUPPLEMENT PO; +MOUTLIQ83 PO; -PROB1TAB16 PO; +SACC250C PO; -TORS20TA3 PO; +TRAM-10 PO; -ULT50X PO; +ZINC40OI13 TOP
[2017-07-19 14:27] VITALS: Ht 160 cm; Wt 69.2 kg
--- NOTE | 2017-07-19 14:53 | EMERGENCY ROOM VISIT NOTE ---
History Report prepared by Maurisio: Loraine Price Under the Supervision of: Dr. Zeyad Spear M.D. First contact with patient: 14:35 Chief Complaint: ABNORMAL LABS Stated Complaint: BLOOD COUNT LOW History of Present Illness The patient is a 72 year old female who presents to the Emergency Room with complaints of an episode of abnormal labs occurring yesterday. The patient states she was at dialysis yesterday when she had her normal labs checked and was told her hemoglobin level was low. The patient reports her hemoglobin level was 7.2 yesterday. The patient's hemoglobin was 6.5 today, per emergency department referral sheet from the patient's dialysis call in sheet. The patient reports feeling fatigued and weak. She also notes some abdominal pain but denies any lightheadedness or blood in urine. She reports having her full dialysis today. The patient reports she was given a "hemoglobin shot" yesterday. The patient reports she was in the ED last week because her fistula graft was bleeding. She states the bleeding eventually stopped by putting pressure on it. She reports a history of a broken hip. She notes she is currently going through in-home rehab for her broken hip. Source of History: patient Position: other (generalized) Quality: other (abnormal labs) Timing: other (episode) Modifying Factors (Relieving): other (none) Associated Symptoms: + abdominal pain, + fatigue, + weakness, No urinary symptoms Review of Systems See HPI for pertinent positives and negatives. A total of ten systems were reviewed and were otherwise negative. 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 (20) Gastroesophageal reflux disease (21) Gram-positive bacteremia (22) H/O TIA (transient ischemic attack) and stroke (23) Heart failure (24) Hematoma of arm (25) Hip fracture, left (26) Hip fracture, left (27) Hyperparathyroidism (28) Hypertensive urgency (29) Hypertensive urgency (30) Hypertensive urgency (31) Hysterectomy (32) ICD (33) Left bundle branch block (34) shelter (current) use of 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 (35) Pericardial effusion (36) Proteinuria (37) PVD (peripheral vascular disease) (38) Slow transit constipation (39) Weakness Surgical Problems: (1) H/O dilation and curettage (2) S/P appy (3) S/P pericardial surgery Family History Diabetes mellitus Heart disease Social History Smoking Status: Never Smoker Alcohol Use: none Drug Use: none Marital Status: , Housing Status: lives with family Occupation Status: retired Current/Historical Medications Scheduled Amiodarone HCl (Amiodarone HCl), 200 MG PO QAM Aspirin (Aspirin Ec), 81 MG PO QAM Atorvastatin (Atorvastatin Calcium), 40 MG PO DAILY Calcium Acetate (Phosphate Bin (Calcium Acetate), 1 TAB PO TID Carvedilol (Coreg), 50 MG PO BIDM Cholecalciferol (Vitamin D3), 2,000 INTER.UNIT PO QAM Cyanocobalamin (Vitamin B12), 1,000 MCG PO QAM Enteral Nutrition Formula (Boost Breeze), 1 CAN PO DIRECTED Escitalopram Oxalate (Lexapro), 20 MG PO DAILY Insulin Aspart (Novolog Flexpen), 12 UNITS SC TIDM Insulin Glargine (Lantus Solostar), 24 UNITS SQ HS Mouthwashes (Biotene Dry Mouth Oral Ri), 15 ML PO QID Multiple Vitamins W/ Minerals (Womens Multi Vitamin & Mi), 1 TAB PO DAILY Pyridoxine (Vitamin B6), 100 MG PO DAILY Ranitidine HCl (Ranitidine HCl), 150 MG PO BID Saccharomyces Boulardii (Florastor), 250 MG PO DAILY Torsemide (Torsemide), 10 MG PO QAM Warfarin Sodium (Warfarin Sodium), 4 MG PO DAILY Zinc Oxide (Topical) (Desitin), 1 APPLN TOP UD Scheduled PRN Acetaminophen (Tylenol), 500 MG PO Q6H PRN for Pain or Fever Ipratropium-Albuterol (Duoneb), 1 TREATMENT INH Q4H PRN for Wheezing Lorazepam (Ativan), 0.5 MG PO TID PRN for Anxiety/Agitation Tramadol (Ultram), 25-75 MG PO Q12 PRN for Pain Allergies Coded Allergies: Adhesives (Verified Allergy, Unknown, RXN TO ADHESIVE ON NITRO PATCH, ) [place] (Verified Allergy, Unknown, UNKNOWN, 07/19/17) DESIREE Inhibitors (Verified Adverse Reaction, Mild, COUGH, 07/19/17) CAUSES COUGH Diphenhydramine (Verified Adverse Reaction, Mild, VERY WEAK, CHF, 07/19/17) Lisinopril (Verified Adverse Reaction, Mild, COUGH, 07/19/17) Nitroglycerin (Verified Adverse Reaction, Mild, HEADACHE/NAUSEA, 07/19/17) Sulfa Antibiotics (Verified Adverse Reaction, Mild, "KNOCKS ME OUT", ) Amlodipine (Verified Adverse Reaction, Unknown, RETAIN FLUID , 07/19/17) Physical Exam Vital Signs Date Time Temp Pulse Resp B/P (MAP) Pulse Ox O2 Delivery O2 Flow Rate FiO2 07/19/17 19:11 60 18 140/58 98 Room Air 07/19/17 18:49 60 18 164/65 98 Room Air 07/19/17 18:12 36.8 60 18 170/70 99 07/19/17 17:39 37.2 60 18 157/56 98 07/19/17 17:25 37.4 60 18 150/64 98 07/19/17 17:09 37.3 60 20 157/57 98 07/19/17 16:16 60 22 159/60 95 Room Air 07/19/17 14:46 71 07/19/17 14:27 37.1 64 20 182/96 100 Room Air Physical Exam GENERAL: Awake, alert, well-appearing, in no distress HENT: Normocephalic, atraumatic. Dry MM. Oropharynx unremarkable. EYES: Normal conjunctiva. Sclera non-icteric. NECK: Supple. No nuchal rigidity. FROM. No JVD. RESPIRATORY: Clear to auscultation. CARDIAC: Regular rate, normal rhythm. Extremities warm and well perfused. Pulses equal. ABDOMEN: Soft, non-distended. No tenderness to palpation. No rebound or guarding. No masses. RECTAL: Brown stool, guaiac negative. MUSCULOSKELETAL: Left forearm AV fistula with palpable bruit. Chest examination reveals no tenderness. The back is symmetrical on inspection without obvious abnormality. There is no CVA tenderness to palpation. No joint edema. LOWER EXTREMITIES: Calves are equal size bilaterally and non-tender. No edema. No discoloration. NEURO: Normal sensorium. No sensory or motor deficits noted. SKIN: Pale, no rash or jaundice noted. Medical Decision & Procedures Laboratory Results 07/19/17 15:11 Red Blood Count 2.39, Mean Corpuscular Volume 98.7, Mean Corpuscular Hemoglobin 32.2, Mean Corpuscular Hemoglobin Concent 32.6, Mean Platelet Volume 9.1, Neutrophils (%) (Auto) 75.5, Lymphocytes (%) (Auto) 12.8, Monocytes (%) (Auto) 7.7, Eosinophils (%) (Auto) 3.2, Basophils (%) (Auto) 0.3, Neutrophils # (Auto) 4.91, Lymphocytes # (Auto) 0.83, Monocytes # (Auto) 0.50, Eosinophils # (Auto) 0.21, Basophils # (Auto) 0.02 07/19/17 15:10 Test 07/19/17 15:10 07/19/17 15:11 07/19/17 15:25 Prothrombin Time 29.5 SECONDS (9.0-12.0) Prothromb Time International Ratio 2.9 (0.9-1.1) Activated Partial Thromboplast Time 35.2 SECONDS (21.0-31.0) Partial Thromboplastin Ratio 1.4 Anion Gap 5.0 mmol/L (3-11) Est Creatinine Clear Calc Drug Dose 20.9 ml/min Estimated GFR () 24.2 Estimated GFR (Non- 20.9 BUN/Creatinine Ratio 5.6 (10-20) Calcium Level 8.7 mg/dl (8.5-10.1) Phosphorus Level 2.0 mg/dl (2.5-4.9) Magnesium Level 2.0 mg/dl (1.8-2.4) Total Bilirubin 0.6 mg/dl (0.2-1) Direct Bilirubin 0.2 mg/dl (0-0.2) Aspartate Amino Transf (AST/SGOT) 14 U/L (15-37) Alanine Aminotransferase (ALT/SGPT) 17 U/L (12-78) Alkaline Phosphatase 136 U/L (45-117) Lactate Dehydrogenase 249 U/L (84-246) Total Protein 6.8 gm/dl (6.4-8.2) Albumin 3.1 gm/dl (3.4-5.0) Lipase 95 U/L (73-393) White Blood Count 6.50 K/uL (4.8-10.8) Red Blood Count 2.39 M/uL (4.2-5.4) Hemoglobin 7.7 g/dL (12.0-16.0) Hematocrit 23.6 % (37-47) Mean Corpuscular Volume 98.7 fL (80-100) Mean Corpuscular Hemoglobin 32.2 pg (25-34) Mean Corpuscular Hemoglobin Concent 32.6 g/dl (32-36) Platelet Count 151 K/uL (130-400) Mean Platelet Volume 9.1 fL (7.4-10.4) Neutrophils (%) (Auto) 75.5 % Lymphocytes (%) (Auto) 12.8 % Monocytes (%) (Auto) 7.7 % Eosinophils (%) (Auto) 3.2 % Basophils (%) (Auto) 0.3 % Neutrophils # (Auto) 4.91 K/uL (1.4-6.5) Lymphocytes # (Auto) 0.83 K/uL (1.2-3.4) Monocytes # (Auto) 0.50 K/uL (0.11-0.59) Eosinophils # (Auto) 0.21 K/uL (0-0.5) Basophils # (Auto) 0.02 K/uL (0-0.2) RDW Standard Deviation 55.1 fL (36.4-46.3) RDW Coefficient of Variation 16.4 % (11.5-14.5) Immature Granulocyte % (Auto) 0.5 % Immature Granulocyte # (Auto) 0.03 K/uL (0.00-0.02) Polychromasia 1+ Anisocytosis PRESENT Tear Drop Cells OCCASIONAL Urine Color DK YELLOW Urine Appearance CLEAR (CLEAR) Urine pH >= 9.0 (4.5-7.5) Urine Specific Bruno 1.015 (1.000-1.030) Urine Protein 2+ (NEG) Urine Glucose (UA) NEG (NEG) Urine Ketones NEG (NEG) Urine Occult Blood NEG (NEG) Urine Nitrite NEG (NEG) Urine Bilirubin NEG (NEG) Urine Urobilinogen NEG (NEG) Urine Leukocyte Esterase TRACE (NEG) Urine WBC (Auto) 1-5 /hpf (0-5) Urine RBC (Auto) 0-4 /hpf (0-4) Urine Hyaline Casts (Auto) 5-10 /lpf (0-5) Urine Epithelial Cells (Auto) >30 /lpf (0-5) Urine Bacteria (Auto) NEG (NEG) Laboratory results reviewed by me ED Course 1437: The patient was evaluated in room C7. A complete history and physical exam was performed. 162: The patient is resting comfortably. 1626: I discussed the patient with Dr. Zaragoza-Scientific Specialist - He recommends giving the patient a unit of blood and sending her home. 1911:I reevaluated the patient. Discussed results and discharge instructions: She verbalized understanding and agreement. The patient is ready for discharge. Medical Decision I reviewed the patient's past medical history, medications, and the nursing notes as described above. Differential diagnoses include: anemia, chronic disease, hemolytic anemia, anemia due to blood loss. The patient is a 70-year-old woman with a past medical history of end-stage renal disease on HD who presents emergency department after having labs after completing dialysis showing a hemoglobin of 6.5 which is down from 7.2 last week per history of present illness. Patient reports fatigue denies any lightheadedness chest pain or shortness of breath. Patient arrives afebrile with stable vital signs. Rectal exam with brown stool guaiac negative. Labs here notable for hemoglobin of 7.7, likely related to hemoconcentration postdialysis. I discussed with Dr. Zaragoza, nephrology high school admissions representative, who agrees that patient would benefit from a transfusion of 1 unit given that she likely is hovering around a hemoglobin of 7 waxing and waning with dialysis. Patient successfully transfused one unit PRBC. Findings and plan for follow-up reviewed with patient. Patient agreeable and d/c'd per discharge instructions. Medication Reconcilliation Current Medication List: was personally reviewed by me Blood Pressure Screening Patient's blood pressure: Elevated blood pressure Blood pressure disposition: Elevated BP felt to be situational Consults Time Called: 1624 Consulting Physician: Dr. Zaragoza-Scientific Specialist Returned Call: 1626 I discussed the patient with Dr. Zaragoza-Scientific Specialist - He recommends giving the patient a unit of blood and sending her home. Impression Primary Impression: Anemia Scribe Attestation The scribe's documentation has been prepared under my direction and personally reviewed by me in its entirety. I confirm that the note above accurately reflects all work, treatment, procedures, and medical decision making performed by me. Departure Information Dispostion Home / Self-Care Referrals No Doctor, Assigned (PCP) Forms HOME CARE DOCUMENTATION FORM, IMPORTANT VISIT INFORMATION, WORK / SCHOOL INSTRUCTIONS Patient Instructions Anemia, Anemia and Kidney Disease, My [facility] Additional Instructions Please follow up with your primary care physician on Friday for re-evaluation. You were transfused 1 unit of packed red blood cells 4 your low hemoglobin which has been fluctuating between 6.5 and 7.7. Otherwise, your exam, EKG, and lab results did not show signs of an emergent condition at this time. Return to the emergency department for worsening symptoms as described in the accompanying instructions.
[2017-07-19] MEDS ORDERED: NUTR-1197 PO (15:18)
[2017-07-19 15:22] LABS: BASO % 0.3 %; BASO ABS # 0.02 K/uL (0-0.2); EOS % 3.2 %; EOS ABS # 0.21 K/uL (0-0.5); HEMATOCRIT 23.6 % (37-47); HEMOGLOBIN 7.7 g/dL (12.0-16.0); IG# 0.03 K/uL (0.00-0.02); LYMPH % 12.8 %; LYMPH ABS # 0.83 K/uL (1.2-3.4); MEAN CELL VOLUME 98.7 fL (80-100); MEAN CORPUSCULAR HEMOGLOBIN 32.2 pg (25-34); MEAN CORPUSCULAR HGB CONC 32.6 g/dl (32-36); MEAN PLATELET VOLUME 9.1 fL (7.4-10.4); MONO % 7.7 %; NEUT % 75.5 %; NEUT ABS # 4.91 K/uL (1.4-6.5); PLATELET COUNT 151 K/uL (130-400); RED CELL DISTRIBUTION WIDTH CV 16.4 % (11.5-14.5); RED CELL DISTRIBUTION WIDTH SD 55.1 fL (36.4-46.3)
[2017-07-19 15:31] LABS: INR 2.9 (0.9-1.1); PTT PATIENT 35.2 SECONDS (21.0-31.0)
[2017-07-19 15:39] LABS: ALBUMIN 3.1 gm/dl (3.4-5.0); CALCIUM 8.7 mg/dl (8.5-10.1); CREATININE 2.27 mg/dl (0.60-1.20)
[2017-07-19 15:43] LABS: TOTAL PROTEIN 6.8 gm/dl (6.4-8.2)
[2017-07-19 17:09] VITALS: BP 157/57; PULSE 60; TEMP 37.3; O2SAT 98
[2017-07-19 17:25] VITALS: BP 150/64; PULSE 60; TEMP 37.4; O2SAT 98
[2017-07-19 17:39] VITALS: BP 157/56; PULSE 60; TEMP 37.2; O2SAT 98
[2017-07-19 18:12] VITALS: BP 170/70; PULSE 60; TEMP 36.8; O2SAT 99
[2017-07-19 19:11] VITALS: BP 140/58; PULSE 60; O2SAT 98
== END 2017-07-19 19:29 | disposition home or self-care (01) ==
LOC: C.EDB 14:12 → C.EDC 19:29
DX: D64.9 Anemia, unspecified (principal); I12.0 Hypertensive chronic kidney disease with stage 5 chronic kidney disease or end stage renal disease; N18.6 End stage renal disease; I48.91 Unspecified atrial fibrillation; E11.9 Type 2 diabetes mellitus without complications; E78.5 Hyperlipidemia, unspecified; K21.9 Gastro-esophageal reflux disease without esophagitis; I51.9 Heart disease, unspecified; E21.3 Hyperparathyroidism, unspecified; I73.9 Peripheral vascular disease, unspecified; F41.9 Anxiety disorder, unspecified; Z86.73 Personal history of transient ischemic attack (TIA), and cerebral infarction without residual deficits; Z90.710 Acquired absence of both cervix and uterus; Z98.890 Other specified postprocedural states; Z79.4 Long term (current) use of insulin; Z79.01 Long term (current) use of 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; Z79.82 Long term (current) use of aspirin; Z79.899 Other long term (current) drug therapy; Z83.3 Family history of diabetes mellitus; Z82.49 Family history of ischemic heart disease and other diseases of the circulatory system

== ENCOUNTER 2017-08-19 05:39 | Day surgery (SDC) | payer OTHER ==
[~2017-08-19] VITALS: Ht 160 cm; Wt 70.0 kg
[2017-08-19] VITALS (9 sets, daily range): BP systolic 145–171; BP diastolic 53–68; PULSE 60–63; TEMP 36.5–36.7; O2SAT 93–98; Ht 160 cm; Wt 70.0 kg
[~2017-08-19 05:39] MED LIST changes: -MED PASS SUPPLEMENT PO; +NUTR-1197 PO
[2017-08-19] MEDS ORDERED: CEFAZOLIN 2000MG IV PUSH 15 ML IV SCH (06:00)
[2017-08-19] MEDS ORDERED: LACTATED RINGER'S 1000ML IV SCH (06:00)
[2017-08-19] MEDS ORDERED: NURSING VERBAL MED ORDER ONE (07:15)
[2017-08-19 07:42] LABS: HEMATOCRIT 32.8 % (37-47); HEMOGLOBIN 10.9 g/dL (12.0-16.0); MEAN CELL VOLUME 96.8 fL (80-100); MEAN CORPUSCULAR HEMOGLOBIN 32.2 pg (25-34); RED CELL DISTRIBUTION WIDTH CV 16.4 % (11.5-14.5); RED CELL DISTRIBUTION WIDTH SD 57.3 fL (36.4-46.3); WHITE BLOOD COUNT 4.46 K/uL (4.8-10.8)
[2017-08-19 07:50] LABS: INR 1.9 (0.9-1.1)
[2017-08-19 08:06] LABS: MEAN CORPUSCULAR HGB CONC 32.1 g/dl (32-36); MEAN PLATELET VOLUME 10.8 fL (7.4-10.4); PLATELET COUNT 106 K/uL (130-400)
[2017-08-19 08:07] LABS: CALCIUM 9.1 mg/dl (8.5-10.1); CREATININE 2.72 mg/dl (0.60-1.20); POTASSIUM 3.7 mmol/L (3.5-5.1)
--- NOTE | 2017-08-19 08:39 | History & Physical Bridge Note ---
H&P Re-Evaluation Bridge Note: I have examined the patient, reviewed the History & Physical and in the interval since the performance of the History & Physical I have noted the following changes of clinical significance: No changes noted
--- NOTE | 2017-08-19 08:40 | Pre Sedation Assessment ---
Pre Sedation Assessment General Date of Sedation: Aug 19, 2017. Vital Signs Past 12 Hours Date Time Temp Pulse Resp B/P (MAP) Pulse Ox O2 Delivery O2 Flow Rate FiO2 08/19/17 07:36 36.7 63 20 171/68 (102) 98 Room Air Review Cardiovascular: regular rate, rhythm Lungs: lungs clear Pre-Sedation Airway Assessment Smoking Status: Never Smoker Hx of Sleep Apnea: No Hx of difficult intubation: No Short Thick Neck: No Thyro-mental Distance: < or =3 Finger Breadths Oral Cavity: WNL Mallampati Classification: Class II ASA Classification: Class II NPO Status Date of Last Intake of Fluids: Aug 19, 2017 Time of Last Intake of Fluids: 0445 Date of Last Intake of Solids: Aug 18, 2017 Time of Last Intake of Solids: 1700 Procedure Planning Contraindications for Sedation: None Current Medications Reviewed: Yes Notes The planned sedation has been discussed with the patient. Informed Consent was obtained. I have identified the patient, determined the appropriateness of sedation and have assessed the patient immediately prior to the procedure. All medicine(s) and interventions are by my order.
[2017-08-19] MEDS ORDERED: BUPIVACAINE 0.5 % 5 MG/1 ML MPF 30ML VIAL ONE (08:49)
[2017-08-19] MEDS ORDERED: LIDOCAINE HCL 1% 20 ML VIAL ONE (08:49)
[2017-08-19] MEDS ORDERED: BACITRACIN 50000 UNIT VIAL ONE (08:49)
[2017-08-19] MEDS ORDERED: FENTANYL CITRATE INJ 50 MCG/1 ML 2 ML VIAL ONE (09:00)
[2017-08-19] MEDS ORDERED: MIDAZOLAM HCL 5 MG/ML 1 ML VIAL ONE (09:00)
--- NOTE | 2017-08-19 10:08 | Post Sedation Assessment ---
Post Sedation Assessment General Date of Sedation Aug 19, 2017. Vital Signs: Vital Signs Past 12 Hours Date Time Temp Pulse Resp B/P (MAP) Pulse Ox O2 Delivery O2 Flow Rate FiO2 08/19/17 09:55 60 15 131/57 (81) 98 Room Air 08/19/17 07:36 36.7 63 20 171/68 (102) 98 Room Air Post Procedure Recovery Score Activity: (2) Moves 4 extremities * Respiration: (2) Deep breath/cough Circulation: (2) +/-20% PreAnes Value Consciousness: (2) Fully Awake Oxygen Saturation: (2) > 92% On Room Air Post Anesthesia Score: 10 Discharge Sedation Level of Care: Fast Track Phase II Post Sedation Plan On clinical assessment, the patient appears to have tolerated the sedation without complications. Patient is recovering as anticipated. Patient will continue to be monitored by nursing and may be discharged when sedation discharge criteria are met per below protocol. Upon Completions of procedure and additional 15 minutes continue every 5 minute vital signs and the P.A.R. score; then discharge to a Phase I or Fast Track to Phase II per the following guidelines: * Discharge Patient to appropriate Phase II area if PAR is 8 or greater or return to pre- procedure baseline. The post - procedure orders will be as directed. * If PAR score is less than 8 or not return to pre-procedure baseline then patient will follow Phase I monitoring till PAR is reached for Phase II. The Phase I may be done in procedure room or may call to secure a Phase I area. * If naloxone or flumazenil are used for reversal, hold in Phase I for an additional 60 -120 minutes before discharge to Phase II. Please call the Sedation Physician to re-evaluate and complete post-note for discharge to Phase II area. Do NOT discharge from procedure sedation or Phase 1 until post- sedation evaluation note is complete by procedure /sedation MD Sedation Discharge Instructions to be given to the patient at discharge to home.
--- NOTE | 2017-08-19 10:10 | [facility] Post Operative Brief Note ---
Immediate Operative Summary Operative Date Aug 19, 2017. Pre-Operative Diagnosis [facility] Post-Operative Diagnosis same Procedure(s) Performed biventricular defibrillator generator change Surgeon renetta rodriguez Fire Investigation Lieutenant Surgeon(s) none Estimated Blood Loss <5cc Findings See Below see offiical report Fluids (cc crystalloids) 100cc Specimens none Drains None Anesthesia Type IV Sedat Cons RN Only Complication(s) none Disposition Disposition: same day surgery
--- NOTE | 2017-08-19 10:12 | Discharge Instructions ---
Discharge Instructions Date of Service Aug 19, 2017. Visit Reason for Visit: Cardiomyopathy Discharge Discharge Diagnosis / Problem: BIV ICD at [facility] Discharge Goals Goal(s): Improve function Activity Recommendations Activity Limitations: as noted below Lifting Limitations: no more than 10 pounds (do not lift more than 10 pounds with the left arm for 2 weeks) Shower/Bathe: may shower/bathe in 3 days Driving or Machine Use: resume 3 days after discharge leave pressure dressing on for 2 days Anesthesia . Post Anesthesia Instructions: If you have had General Anesthesia or IV Sedation: * Do not drive today. * Resume driving when surgeon permits. * Do not make important decisions or sign legal documents today. * Call surgeon for: 1. Temperature elevations greater than 101 degrees F. 2. Uncontrollable pain. 3. Excessive bleeding. 4. Persistent nausea and vomiting. 5. Medication intolerance (nausea, vomiting or rash). * For nausea and vomiting use only clear liquids such as: tea, soda, bouillon until nausea subsides, then gradually increase diet as tolerated. * If you have any concerns or questions, call your surgeon's office. If physician is unavailable and it is an emergency, call 911 or go to the nearest emergency room. . Instructions / Follow-Up Instructions / Follow-Up ACTIVITY RECOMMENDATIONS: * Do not lift more than 10 pounds with the left arm for 2 weeks SPECIAL CARE INSTRUCTIONS: * If bleeding occurs, apply direct pressure to area for 5 minutes. * Call your doctor if you have severe pain, fever, drainage or bleeding at site. * Keep dressing on and dry for 48 hours then remove. * Keep any scheduled doctor's appointment. * Implant Card - hand held device with website information given. SKIN IRRITATION: * You may experience some redness and/or swelling in the area where radiation was administered. If any skin irritation occurs, please contact your family physician. FOLLOW UP VISIT: Keep any scheduled doctor appointments. Diet Recommendations Recommended Home Diet: resume previous diet Procedures Procedures Performed: biventricular defibrillator generator change Pending Studies Studies pending at discharge: no Medical Emergencies . Who to Call and When: Medical Emergencies: If at any time you feel your situation is an emergency, please call 911 immediately. . Non-Emergent Contact Non-Emergency issues call your: W[employer] Molder . . "Provider Documentation" section prepared by Trish Arellano. .
--- NOTE | 2017-08-19 11:26 | OPERATIVE REPORT ---
DATE OF OPERATION: 08/19/2017 PREOPERATIVE DIAGNOSES: Biventricular defibrillator at elective replacement interval, nonischemic cardiomyopathy, ventricular tachycardia. POSTOPERATIVE DIAGNOSES: Same. PROCEDURE: Biventricular rate responsive implantable cardiac defibrillator generator change. SURGEON: Dr. Trish Arellano. MARKETING CO OP: None. ANESTHESIA: Monitored conscious sedation administered under my supervision by Michell Le. Start time 9:10 and end time 9:55 with a total of 3 mg of Versed and 75 mcg of fentanyl. INTRAVENOUS FLUIDS: 100 mL. ANTIBIOTICS: Two grams of Ancef. ESTIMATED BLOOD LOSS: Less than 5 mL. COMPLICATIONS: None. FINDINGS: See below. URINE OUTPUT: Not applicable. SPECIMENS: None. INDICATIONS: This is a 72-year-old female with past medical history for nonischemic cardiomyopathy. 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 At her most recent generator change, she was found to hit LUCAS and was recommended a generator change. CONSENT: Consent was obtained prior to the patient going into the electrophysiology lab. The patient was informed of risks, benefits, alternatives to the procedure. Risks include but not limited to sudden cardiac , cardiac arrhythmias, cerebrovascular accident, myocardial infarction, bleeding and infection. The patient understood these risks and agreed to the procedure as planned. DESCRIPTION OF PROCEDURE: The patient was brought into the electrophysiology lab in a fasting state. She was connected to continuous monitor and storage bin tender. A timeout was performed to ensure patient's identity and procedure correctly. The patient was prepped and draped over the left infraclavicular space in normal surgical center fashion. Moderate conscious sedation was given throughout the procedure for patient's comfort level. [place] precautions were maintained throughout the procedure. 20 mL of 1% lidocaine, bupivacaine mixture were given over the prior surgical incision. An incision was made over the prior surgical incision and blunt dissection was performed down to the prior generator. The capsule was then disrupted using iris scissors and the generator was ultimately freed from the capsule and removed from the body. The leads were tested intraoperatively, see below for results. The leads were then attached to the new generator making sure that the pins were in appropriate position, passed the set screw and the set screws were all tightened. The capsule was disrupted inferiorly and caudally to allow for new blood flow. The pocket was then flushed with copious amounts of bacitracin saline wash and inspected for hemostasis. The device was then placed in an antibiotic pouch and then placed in the pocket, making sure that the leads were lying flat beneath the device. Roni stat was placed in the pocket as the patient is on Coumadin and we did not want to have any further bleeding problems. The incision was then closed in a 3-layer fashion using a 2-0 Vicryl interrupted suture followed by a 3-0 Vicryl interrupted suture followed by a 4-0 Monocryl running stitch and Dermabond was applied. EQUIPMENT: 1. Explanted generator is a [employer] [id number], serial #[id number], implanted 01/13/2012. Voltage of 2.62 volts, LUCAS 07/19/2017. 2. The new device generator is a [employer] MRI CERTIFIED OPTICIAN-D SureScan, [id number], serial #[id number]. 3. Right atrial lead - model #5076 - 45 cm, serial number [id number] - implanted 01/13/2012. 4. Right ventricular lead - model #6935 - 58 cm, serial #[id number]. 5. Left ventricular lead - model #4296 - 88 cm, serial [id number], implanted 01/13/2012. INTRAOPERATIVE TESTIN. Right atrial lead: P-wave 2.1 millivolts, impedance 390 ohms, threshold 0.6 volts at 1.3 milliamps. 2. Right ventricular lead: R-wave 27.2 millivolts, impedance 505 ohms, threshold 0.6 volts at 1 milliamp. 3. Left ventricular lead programmed LV ring to RV coil, impedance 372 ohms, threshold 0.9 volts at 2.4 milliamps. FINAL MEASUREMENTS THROUGH THE DEVICE: 1. Right atrial lead: P-wave 1.9 millivolts, impedance 342 ohms, threshold 0.75 volts at 0.4 milliseconds. 2. Right ventricular lead: R-wave 20 millivolts, impedance 456 ohms, threshold 0.75 volts at 0.4 milliseconds. 3. Left ventricular lead programmed LV ring to RV coil, impedance 342 ohms, threshold 1.25 volts at 0.4 milliseconds. 4. RV coil 56 ohms. FINAL PARAMETERS: DDDR 60/130, right atrial and right ventricular amplitude 1.5 volts, pulse width 0.4 milliseconds, sensitivity 0.3 millivolts. The left ventricular amplitude 1.75 volts, pulse width 0.4 milliseconds. The VF zone at 188 for 24 at 32 detections, a VT monitor zone at 140, 28 detection intervals, ET and ES therapies were turned on. IMPRESSION: Successful biventricular rate responsive implantable cardiac defibrillator generator change secondary to nonischemic cardiomyopathy and device at elective replacement interval. PLAN: Monitor patient post-sedation. She can continue her home medications. She should lave the pressure dressing on for 2 days. She should not do any heavy lifting with the left arm for 2 weeks. She should follow up in our [facility] device clinic in 7-10 days for device and wound check. I attest to the content of the Intraoperative Record and any orders documented therein. Any exception s are noted below.
== END 2017-08-19 12:45 | disposition home or self-care (01) ==
LOC: C.ACU 05:39
PROVIDERS: ATTEND Internal Medicine
DX: Z95.810 Presence of automatic (implantable) cardiac defibrillator (principal); I13.2 Hypertensive heart and chronic kidney disease with heart failure and with stage 5 chronic kidney disease, or end stage renal disease; N18.6 End stage renal disease; I42.9 Cardiomyopathy, unspecified; I50.22 Chronic systolic (congestive) heart failure; I47.2 Ventricular tachycardia; D69.6 Thrombocytopenia, unspecified; E78.5 Hyperlipidemia, unspecified; I44.7 Left bundle-branch block, unspecified; F33.1 Major depressive disorder, recurrent, moderate; K21.9 Gastro-esophageal reflux disease without esophagitis; I73.9 Peripheral vascular disease, unspecified; G47.33 Obstructive sleep apnea (adult) (pediatric); E11.9 Type 2 diabetes mellitus without complications; Z99.2 Dependence on renal dialysis; Z86.718 Personal history of other venous thrombosis and embolism; Z86.73 Personal history of transient ischemic attack (TIA), and cerebral infarction without residual deficits; Z79.4 Long term (current) use of insulin; Z79.01 Long term (current) use of 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; Z90.49 Acquired absence of other specified parts of digestive tract; Z90.710 Acquired absence of both cervix and uterus; Z88.2 Allergy status to sulfonamides; Z83.3 Family history of diabetes mellitus; Z82.49 Family history of ischemic heart disease and other diseases of the circulatory system

== ENCOUNTER 2017-10-14 14:05 | Emergency (ER) | payer OTHER ==
[~2017-10-14] VITALS: Ht 160 cm; Wt 70.4 kg
[2017-10-14 14:05] VITALS: TEMP 36.8; Ht 160 cm; Wt 70.4 kg
[~2017-10-14 14:05] MED LIST changes: -MOUTLIQ83 PO
[2017-10-14] MEDS ORDERED: ACETAMINOPHEN 500 MG TAB PO STA (14:15)
[2017-10-14] MEDS ORDERED: SODIUM CHLORIDE 0.9% 500ML 500 ML IV STA (14:15)
--- NOTE | 2017-10-14 14:37 | DIAGNOSTIC IMAGING REPORT ---
SINGLE VIEW CHEST CLINICAL HISTORY: Weakness. Change in mental status. FINDINGS: An AP, portable, upright chest radiograph is compared to study dated 06/16/2017. The examination is degraded by portable technique and patient rotation. A 3-lead cardiac AICD is unchanged in position and largely obscures the left upper chest. The heart is enlarged and there is atherosclerotic calcification of the thoracic aorta. The pulmonary vascular is noncongested. Chronic interstitial thickening is similar to previous. Linear atelectasis versus scarring is again seen in the left lower lung. No airspace consolidation, large pleural effusion, or pneumothorax is identified. The skeletal structures are osteopenic. The bony thorax is grossly intact. IMPRESSION: 1. Cardiomegaly and AICD. There is no radiographic evidence of congestive failure. 2. There is no airspace consolidation or large pleural effusion. Electronically signed by: Colten Jacinto M.D. 10/14/2017 2:35 PM Dictated Date/Time: 10/14/2017 2:34 PM
[2017-10-14] MEDS ORDERED: WARF-283 PO (14:41)
[2017-10-14 14:47] VITALS: O2SAT 96
[2017-10-14 15:07] LABS: HEMATOCRIT 34.8 % (37-47); HEMOGLOBIN 11.8 g/dL (12.0-16.0); MEAN CELL VOLUME 93.3 fL (80-100); MEAN CORPUSCULAR HEMOGLOBIN 31.6 pg (25-34); MEAN CORPUSCULAR HGB CONC 33.9 g/dl (32-36); RED CELL DISTRIBUTION WIDTH CV 15.2 % (11.5-14.5); RED CELL DISTRIBUTION WIDTH SD 51.7 fL (36.4-46.3); WHITE BLOOD COUNT 5.12 K/uL (4.8-10.8)
[2017-10-14 15:14] LABS: INR 3.1 (0.9-1.1); PTT PATIENT 34.8 SECONDS (21.0-31.0)
--- NOTE | 2017-10-14 15:33 | DIAGNOSTIC IMAGING REPORT ---
CT SCAN OF THE BRAIN WITHOUT IV CONTRAST CLINICAL HISTORY: Weakness. Change in mental status. COMPARISON STUDY: CT of the brain dated 06/15/2017. TECHNIQUE: Unenhanced axial CT scan of the brain is performed from the vertex to the skull base. A dose lowering technique was utilized adhering to the principles of ALARA. CT DOSE: 690.05 mGycm FINDINGS: Brain parenchyma: There are age-related involutional changes noting moderate subcortical and periventricular microangiopathic change. There is no hemorrhage, mass effect, or evidence of acute territorial ischemia by CT criteria. Cutler-white matter is preserved. No extra-axial fluid collection is seen. Calcifications are noted in the nasal ganglia and cerebellar hemispheres. Ventricles, sulci, cisterns: Prominent secondary to involutional change. Intracranial vasculature: There is atherosclerotic calcification of the cavernous carotid and vertebral arteries. Calvarium: Unremarkable. Sinuses and mastoids: The visualized paranasal sinuses are clear. There is a trace right mastoid effusion. The left mastoid air cells are well pneumatized. Orbits: The bony orbits are grossly intact. There are bilateral ocular lens implants. IMPRESSION: There is no hemorrhage, mass effect, or evidence of acute territorial ischemia by CT criteria. Electronically signed by: Colten Jacinto M.D. 10/14/2017 3:32 PM Dictated Date/Time: 10/14/2017 3:30 PM
[2017-10-14 15:37] LABS: BASO % 0.4 %; BASO ABS # 0.02 K/uL (0-0.2); EOS % 2.7 %; EOS ABS # 0.14 K/uL (0-0.5); IG# 0.02 K/uL (0.00-0.02); LYMPH % 17.2 %; LYMPH ABS # 0.88 K/uL (1.2-3.4); MEAN PLATELET VOLUME 11.8 fL (7.4-10.4); MONO % 6.4 %; MONO ABS # 0.33 K/uL (0.11-0.59); NEUT % 72.9 %; NEUT ABS # 3.73 K/uL (1.4-6.5); PLATELET COUNT 97 K/uL (130-400)
[2017-10-14 15:39] LABS: ALBUMIN 3.8 gm/dl (3.4-5.0); CALCIUM 8.8 mg/dl (8.5-10.1); CREATININE 1.46 mg/dl (0.60-1.20); POTASSIUM 3.3 mmol/L (3.5-5.1)
[2017-10-14 16:12] VITALS: BP 197/73; PULSE 60; O2SAT 93
--- NOTE | 2017-10-14 16:15 | EMERGENCY ROOM VISIT NOTE ---
History Report prepared by Maurisio: Mg Abdi Under the Supervision of: Dr. Toro Xavier D.O. First contact with patient: 14:08 Stated Complaint: NEAR SYNCOPE History of Present Illness The patient is a 72 year old female who presents to the Emergency Room by EMS with complaints of a near syncopal episode occurring just prior to arrival. Her episode occurred while at dialysis today. The patent received the full treatment before her episode occurred. She states that the episode involved her left arm shaking. She states that she was laid down, and her symptoms improved. The patient notes that her blood pressure was 200/90 at this time. Her blood pressure lowered while en route. She also complains of fatigue and intermittent headaches. The patient denies any abdominal pain. She has been eating and drinking normally. She notes her knees began aching en route. Source of History: patient Onset: Just prior to arrival Quality: other (near-syncope) Timing: other (episode) Modifying Factors (Relieving): other (laying down) Associated Symptoms: + headache (intermittent), + fatigue, No abdominal pain Review of Systems See HPI for pertinent positives & negatives. A total of 10 systems reviewed and were otherwise negative. 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 (20) Gastroesophageal reflux disease (21) Gram-positive bacteremia (22) H/O TIA (transient ischemic attack) and stroke (23) Heart failure (24) Hematoma of arm (25) Hip fracture, left (26) Hip fracture, left (27) Hyperparathyroidism (28) Hypertensive urgency (29) Hypertensive urgency (30) Hypertensive urgency (31) Hysterectomy (32) ICD (33) Left bundle branch block (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 (35) Pericardial effusion (36) Proteinuria (37) PVD (peripheral vascular disease) (38) Slow transit constipation (39) Weakness Surgical Problems: (1) H/O dilation and curettage (2) S/P appy (3) S/P pericardial surgery Family History Diabetes mellitus Heart disease Social History Smoking Status: Never Smoker Alcohol Use: none Drug Use: none Marital Status: , Housing Status: lives with family Occupation Status: retired Current/Historical Medications Scheduled Amiodarone HCl (Amiodarone HCl), 200 MG PO QAM Aspirin (Aspirin Ec), 81 MG PO QAM Atorvastatin (Lipitor), 40 MG PO DAILY Calcium Acetate (Phosphate Bin (Calcium Acetate), 1 TAB PO TID Carvedilol (Coreg), 50 MG PO BIDM Cholecalciferol (Vitamin D3), 2,000 INTER.UNIT PO QAM Cyanocobalamin (Vitamin B12), 1,000 MCG PO QAM Enteral Nutrition Formula (Boost Breeze), 1 CAN PO DIRECTED Escitalopram Oxalate (Lexapro), 20 MG PO DAILY Insulin Aspart (Novolog Flexpen), UNITS SC TIDM Insulin Glargine (Lantus Solostar), 24 UNITS SQ HS Multiple Vitamins W/ Minerals (Womens Multi Vitamin & Mi), 1 TAB PO DAILY Pyridoxine (Vitamin B6), 100 MG PO DAILY Ranitidine HCl (Ranitidine HCl), 150 MG PO BID Saccharomyces Boulardii (Florastor), 250 MG PO DAILY Torsemide (Torsemide), 10 MG PO QAM Warfarin Sodium (Warfarin Sodium), 4 MG PO DIRECTED Warfarin Sodium (Warfarin Sodium), 6 MG PO DAILY ON FRIDAY Zinc Oxide (Topical) (Desitin), 1 APPLN TOP UD Scheduled PRN Acetaminophen (Tylenol), 500 MG PO Q6H PRN for Pain or Fever Ipratropium-Albuterol (Duoneb), 1 TREATMENT INH Q4H PRN for Wheezing Lorazepam (Ativan), 0.5 MG PO TID PRN for Anxiety/Agitation Allergies Coded Allergies: Adhesives (Verified Allergy, Unknown, RXN TO ADHESIVE ON NITRO PATCH, ) [place] (Verified Allergy, Unknown, UNKNOWN, 08/19/17) DESIREE Inhibitors (Verified Adverse Reaction, Mild, COUGH, 08/19/17) CAUSES COUGH Diphenhydramine (Verified Adverse Reaction, Mild, VERY WEAK, CHF, 08/19/17) Lisinopril (Verified Adverse Reaction, Mild, COUGH, 08/19/17) Nitroglycerin (Verified Adverse Reaction, Mild, HEADACHE/NAUSEA, 08/19/17) Sulfa Antibiotics (Verified Adverse Reaction, Mild, "KNOCKS ME OUT", ) Amlodipine (Verified Adverse Reaction, Unknown, RETAIN FLUID , 08/19/17) Physical Exam Vital Signs Date Time Temp Pulse Resp B/P (MAP) Pulse Ox O2 Delivery O2 Flow Rate FiO2 10/14/17 16:12 60 16 197/73 93 Room Air 10/14/17 15:07 60 16 204/78 96 Room Air 59 202/77 67 183/74 10/14/17 15:05 60 16 183/74 96 Room Air 10/14/17 14:47 Room Air 10/14/17 14:47 96 Room Air 10/14/17 14:19 64 10/14/17 14:05 98 Room Air 10/14/17 14:05 36.8 64 15 186/77 98 Room Air Physical Exam GENERAL: Patient is awake, alert, and in no acute distress. Patient is resting comfortably and showing no signs of anxiety EYES: The conjunctivae are clear. The pupils are round and reactive. EARS, NOSE, MOUTH AND THROAT: The nose is without any evidence of any deformity. Mucous membranes are moist tongue is midline NECK: The neck is nontender and supple. RESPIRATORY: Rales at both bases but no tachypnea or conversational dyspnea noted. CARDIOVASCULAR: Regular rate and rhythm. Systolic murmur suggested. GASTROINTESTINAL: The abdomen is soft. Bowel sounds are present in all quadrants. Abdomen is nontender PELVIS: The Pelvis is stable. No tenderness to palpation is noted. BACK: No midline tenderness or or step-off noted range of motion in flexion extension as well as rotation no signs of muscle spasm noted MUSCULOSKELETAL/EXTREMITIES: There is no evidence of gross deformity full range of motion is noted in the hips and shoulders SKIN: There is no obvious evidence of any rash. There are no petechiae, pallor or cyanosis noted. Pedal edema bilaterally. Dialysis fistula in left forearm. Bruit noted to auscultation. Palpable thrill. NEUROLOGIC: Patient is awake alert and oriented x3 strength is symmetric patellar reflexes are 2+ bilaterally Medical Decision & Procedures ER Provider Diagnostic Interpretation: Radiology results as stated below per my review and radiologist interpretation: CT SCAN OF THE BRAIN WITHOUT IV CONTRAST FINDINGS: Brain parenchyma: There are age-related involutional changes noting moderate subcortical and periventricular microangiopathic change. There is no hemorrhage, mass effect, or evidence of acute territorial ischemia by CT criteria. Cutler-white matter is preserved. No extra-axial fluid collection is seen. Calcifications are noted in the nasal ganglia and cerebellar hemispheres. Ventricles, sulci, cisterns: Prominent secondary to involutional change. Intracranial vasculature: There is atherosclerotic calcification of the cavernous carotid and vertebral arteries. Calvarium: Unremarkable. Sinuses and mastoids: The visualized paranasal sinuses are clear. There is a trace right mastoid effusion. The left mastoid air cells are well pneumatized. Orbits: The bony orbits are grossly intact. There are bilateral ocular lens implants. IMPRESSION: There is no hemorrhage, mass effect, or evidence of acute territorial ischemia by CT criteria. Electronically signed by: Colten Jacinto M.D. 10/14/2017 3:32 PM SINGLE VIEW CHEST FINDINGS: An AP, portable, upright chest radiograph is compared to study dated 06/16/2017. The examination is degraded by portable technique and patient rotation. A 3-lead cardiac AICD is unchanged in position and largely obscures the left upper chest. The heart is enlarged and there is atherosclerotic calcification of the thoracic aorta. The pulmonary vascular is noncongested. Chronic interstitial thickening is similar to previous. Linear atelectasis versus scarring is again seen in the left lower lung. No airspace consolidation, large pleural effusion, or pneumothorax is identified. The skeletal structures are osteopenic. The bony thorax is grossly intact. IMPRESSION: 1. Cardiomegaly and AICD. There is no radiographic evidence of congestive failure. 2. There is no airspace consolidation or large pleural effusion. Electronically signed by: Colten Jacinto M.D. 10/14/2017 2:35 PM Laboratory Results 10/14/17 14:50 Red Blood Count 3.73, Mean Corpuscular Volume 93.3, Mean Corpuscular Hemoglobin 31.6, Mean Corpuscular Hemoglobin Concent 33.9, Mean Platelet Volume 11.8, Neutrophils (%) (Auto) 72.9, Lymphocytes (%) (Auto) 17.2, Monocytes (%) (Auto) 6.4, Eosinophils (%) (Auto) 2.7, Basophils (%) (Auto) 0.4, Neutrophils # (Auto) 3.73, Lymphocytes # (Auto) 0.88, Monocytes # (Auto) 0.33, Eosinophils # (Auto) 0.14, Basophils # (Auto) 0.02 10/14/17 14:50 Test 10/14/17 14:50 White Blood Count 5.12 K/uL (4.8-10.8) Red Blood Count 3.73 M/uL (4.2-5.4) Hemoglobin 11.8 g/dL (12.0-16.0) Hematocrit 34.8 % (37-47) Mean Corpuscular Volume 93.3 fL (80-100) Mean Corpuscular Hemoglobin 31.6 pg (25-34) Mean Corpuscular Hemoglobin Concent 33.9 g/dl (32-36) Platelet Count 97 K/uL (130-400) Mean Platelet Volume 11.8 fL (7.4-10.4) Neutrophils (%) (Auto) 72.9 % Lymphocytes (%) (Auto) 17.2 % Monocytes (%) (Auto) 6.4 % Eosinophils (%) (Auto) 2.7 % Basophils (%) (Auto) 0.4 % Neutrophils # (Auto) 3.73 K/uL (1.4-6.5) Lymphocytes # (Auto) 0.88 K/uL (1.2-3.4) Monocytes # (Auto) 0.33 K/uL (0.11-0.59) Eosinophils # (Auto) 0.14 K/uL (0-0.5) Basophils # (Auto) 0.02 K/uL (0-0.2) RDW Standard Deviation 51.7 fL (36.4-46.3) RDW Coefficient of Variation 15.2 % (11.5-14.5) Immature Granulocyte % (Auto) 0.4 % Immature Granulocyte # (Auto) 0.02 K/uL (0.00-0.02) Platelet Estimate DECREASED Red Blood Cell Morphology Unremarkable Prothrombin Time 32.2 SECONDS (9.0-12.0) Prothromb Time International Ratio 3.1 (0.9-1.1) Activated Partial Thromboplast Time 34.8 SECONDS (21.0-31.0) Partial Thromboplastin Ratio 1.3 Anion Gap 6.0 mmol/L (3-11) Est Creatinine Clear Calc Drug Dose 32.8 ml/min Estimated GFR () 41.2 Estimated GFR (Non- 35.6 BUN/Creatinine Ratio 7.7 (10-20) Calcium Level 8.8 mg/dl (8.5-10.1) Magnesium Level 2.1 mg/dl (1.8-2.4) Total Bilirubin 0.8 mg/dl (0.2-1) Direct Bilirubin 0.2 mg/dl (0-0.2) Aspartate Amino Transf (AST/SGOT) 20 U/L (15-37) Alanine Aminotransferase (ALT/SGPT) 27 U/L (12-78) Alkaline Phosphatase 103 U/L (45-117) Troponin I 0.025 ng/ml (0-0.045) Total Protein 7.0 gm/dl (6.4-8.2) Albumin 3.8 gm/dl (3.4-5.0) Thyroid Stimulating Hormone (TSH) 2.840 uIu/ml (0.300-4.500) Laboratory results per my review. Medications Administered Medications (Trade) Dose Ordered Sig/Rayna Route Start Time Stop Time Status Last Admin Dose Admin Sodium Chloride 500 ml @ 999 mls/hr Q31M STAT IV 10/14/17 14:15 10/14/17 14:45 DC 10/14/17 15:02 999 MLS/HR Acetaminophen (Tylenol Tab) 1,000 mg NOW STAT PO 10/14/17 14:15 10/14/17 14:17 DC 10/14/17 15:02 1,000 MG ECG Per My Interpretation Indication: syncope (near) Rate (beats per minute): 60 Rhythm: other (Dual Chamber Pacemaker) Findings: other (No [place] beats. No PVCs. ) Comparison ECG Date: 07/19/2017 Change: no significant change ED Course 1412: The patient was evaluated in room C11A. A complete history and physical examination were performed. 1415: Ordered Tylenol Tab 1000 mg PO, NSS 500 ml @ 999 mls/hr IV. 1607: Upon reevaluation, the patient is resting comfortably. I discussed the results and treatment plan with her. She verbalized agreement of the treatment plan. The patient was discharged home. Medical Decision Differential diagnosis: Etiologies such as vasovagal event, infection, hypoglycemia, electrolyte abnormalities, cardiac sources, intracerebral event, toxicologic, neurologic, as well as others were entertained. Nursing notes reviewed. The patient is a 72-year-old female who had a near syncopal episode after dialysis. Initially her blood pressure was reported as low but upon evaluation her blood pressure was found to be elevated. The patient was treated with a small fluid bolus in the emergency department. At this time I feel her presentation is most likely consistent with fluid shifting related to her dialysis. I discussed patient's laboratory and radiographic studies with her. She was encouraged to rest and avoid any strenuous activity. She is also encouraged to continue all medications as prescribed and follow-up with her family doctor this week for reevaluation. Otherwise she was encouraged to return to the emergency department immediately if symptoms change worsen or the need arises. Medication Reconcilliation Current Medication List: was personally reviewed by me Blood Pressure Screening Patient's blood pressure: Elevated blood pressure Blood pressure disposition: Referred to PCP Impression Primary Impression: Near syncope Scribe Attestation The scribe's documentation has been prepared under my direction and personally reviewed by me in its entirety. I confirm that the note above accurately reflects all work, treatment, procedures, and medical decision making performed by me. Departure Information Dispostion Home / Self-Care Referrals Isabel Amezcua D.O. (PCP) Forms HOME CARE DOCUMENTATION FORM, IMPORTANT VISIT INFORMATION Patient Instructions My [facility], Syncope Additional Instructions Continue all medications as prescribed. Rest and avoid any strenuous activity. Follow-up with your family doctor this week for reevaluation.
== END 2017-10-14 16:43 | disposition home or self-care (01) ==
LOC: EDBD 14:05 → C.EDC 14:06
DX: R55 Syncope and collapse (principal); N17.9 Acute kidney failure, unspecified; D64.9 Anemia, unspecified; J30.9 Allergic rhinitis, unspecified; F41.9 Anxiety disorder, unspecified; I48.91 Unspecified atrial fibrillation; Z95.810 Presence of automatic (implantable) cardiac defibrillator; I51.7 Cardiomegaly; N18.3 Chronic kidney disease, stage 3 (moderate); E11.9 Type 2 diabetes mellitus without complications; F32.9 Major depressive disorder, single episode, unspecified; Z99.2 Dependence on renal dialysis; E78.5 Hyperlipidemia, unspecified; N18.6 End stage renal disease; K21.9 Gastro-esophageal reflux disease without esophagitis; Z86.73 Personal history of transient ischemic attack (TIA), and cerebral infarction without residual deficits; I50.9 Heart failure, unspecified; I73.9 Peripheral vascular disease, unspecified; Z83.3 Family history of diabetes mellitus; Z82.49 Family history of ischemic heart disease and other diseases of the circulatory system; Z79.82 Long term (current) use of aspirin; Z79.4 Long term (current) use of insulin; Z79.01 Long term (current) use of 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; Z79.899 Other long term (current) drug therapy; Z91.048 Other nonmedicinal substance allergy status; Z91.018 Allergy to other foods; Z88.8 Allergy status to other drugs, medicaments and biological substances; Z88.2 Allergy status to sulfonamides

== ENCOUNTER 2017-11-04 17:43 | Emergency (ER) | payer OTHER ==
[~2017-11-04] VITALS: Ht 160 cm; Wt 69.0 kg
[~2017-11-04 17:43] MED LIST changes: -TRAM-10 PO
[2017-11-04 17:57] VITALS: TEMP 36.9; Ht 160 cm; Wt 69.0 kg
[2017-11-04] MEDS ORDERED: THROMBIN 5000 UNITS KIT EXT ONE (18:15)
[2017-11-04 18:54] LABS: BASO % 0.2 %; BASO ABS # 0.01 K/uL (0-0.2); EOS % 2.5 %; EOS ABS # 0.13 K/uL (0-0.5); HEMATOCRIT 33.3 % (37-47); HEMOGLOBIN 11.1 g/dL (12.0-16.0); IG# 0.02 K/uL (0.00-0.02); LYMPH % 17.8 %; LYMPH ABS # 0.94 K/uL (1.2-3.4); MEAN CELL VOLUME 94.3 fL (80-100); MEAN CORPUSCULAR HEMOGLOBIN 31.4 pg (25-34); MEAN CORPUSCULAR HGB CONC 33.3 g/dl (32-36); MEAN PLATELET VOLUME 11.4 fL (7.4-10.4); MONO % 7.6 %; NEUT % 71.5 %; NEUT ABS # 3.79 K/uL (1.4-6.5); PLATELET COUNT 102 K/uL (130-400); RED CELL DISTRIBUTION WIDTH SD 51.6 fL (36.4-46.3); WHITE BLOOD COUNT 5.29 K/uL (4.8-10.8)
[2017-11-04 19:10] LABS: ALBUMIN 3.5 gm/dl (3.4-5.0); CALCIUM 8.9 mg/dl (8.5-10.1); CREATININE 1.71 mg/dl (0.60-1.20); POTASSIUM 3.7 mmol/L (3.5-5.1)
[2017-11-04 19:12] LABS: INR 2.5 (0.9-1.1); PTT PATIENT 33.2 SECONDS (21.0-31.0)
[2017-11-04 19:13] LABS: TOTAL PROTEIN 6.8 gm/dl (6.4-8.2)
[2017-11-04 19:43] VITALS: BP 197/79; PULSE 66; O2SAT 98
--- NOTE | 2017-11-04 19:52 | EMERGENCY ROOM VISIT NOTE ---
History Report prepared by Maurisio: Mg Abdi Under the Supervision of: Dr. Bhargav Mccarthy M.D. First contact with patient: 17:47 Chief Complaint: BLEEDING Stated Complaint: BLEEDING History of Present Illness The patient is a 72 year old white female with a past medical history of A-fib, cardiomegaly, ICD placement, ESRD (on dialysis), CHF, HLD, diabetes, GERD, TIA, CVA, hyperparathyroidism, HTN, hysterectomy, PVD, anxiety and depression who presents to the ED with a cc of constant left forearm bleeding beginning 2.5 hours ago. Patient was seen today for her dialysis treatment. Her bleeding began when her IV was removed from her fistula after completion of dialysis. She is on Warfarin. Patient has a history of similar episodes of bleeding occurring multiple times in the past. Positive: headache. Source of History: patient Onset: 2.5 hours ago Position: arm (left forearm) Quality: other (bleeding) Timing: constant Review of Systems See HPI for pertinent positives and negatives. A total of ten systems were reviewed and were otherwise negative. 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 (20) Gastroesophageal reflux disease (21) Gram-positive bacteremia (22) H/O TIA (transient ischemic attack) and stroke (23) Heart failure (24) Hematoma of arm (25) Hip fracture, left (26) Hip fracture, left (27) Hyperparathyroidism (28) Hypertensive urgency (29) Hypertensive urgency (30) Hypertensive urgency (31) Hysterectomy (32) ICD (33) Left bundle branch block (34) long term (current) use of 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 (35) Pericardial effusion (36) Proteinuria (37) PVD (peripheral vascular disease) (38) Slow transit constipation (39) Weakness Surgical Problems: (1) H/O dilation and curettage (2) S/P appy (3) S/P pericardial surgery Family History Diabetes mellitus Heart disease Social History Smoking Status: Never Smoker Alcohol Use: none Drug Use: none Marital Status: , Housing Status: lives with family Occupation Status: retired Current/Historical Medications Scheduled Amiodarone HCl (Amiodarone HCl), 200 MG PO QAM Aspirin (Aspirin Ec), 81 MG PO QAM Atorvastatin (Lipitor), 40 MG PO DAILY Calcium Acetate (Phosphate Bin (Calcium Acetate), 1 TAB PO TID Carvedilol (Coreg), 50 MG PO BIDM Cholecalciferol (Vitamin D3), 2,000 INTER.UNIT PO QAM Cyanocobalamin (Vitamin B12), 1,000 MCG PO QAM Enteral Nutrition Formula (Boost Breeze), 1 CAN PO DIRECTED Escitalopram Oxalate (Lexapro), 20 MG PO DAILY Insulin Aspart (Novolog Flexpen), UNITS SC TIDM Insulin Glargine (Lantus Solostar), 24 UNITS SQ HS Multiple Vitamins W/ Minerals (Womens Multi Vitamin & Mi), 1 TAB PO DAILY Pyridoxine (Vitamin B6), 100 MG PO DAILY Ranitidine HCl (Ranitidine HCl), 150 MG PO BID Saccharomyces Boulardii (Florastor), 250 MG PO DAILY Torsemide (Torsemide), 10 MG PO QAM Warfarin Sodium (Warfarin Sodium), 4 MG PO DIRECTED Warfarin Sodium (Warfarin Sodium), 6 MG PO DAILY ON FRIDAY Zinc Oxide (Topical) (Desitin), 1 APPLN TOP UD Scheduled PRN Acetaminophen (Tylenol), 500 MG PO Q6H PRN for Pain or Fever Ipratropium-Albuterol (Duoneb), 1 TREATMENT INH Q4H PRN for Wheezing Lorazepam (Ativan), 0.5 MG PO TID PRN for Anxiety/Agitation Allergies Coded Allergies: Adhesives (Verified Allergy, Unknown, RXN TO ADHESIVE ON NITRO PATCH, ) [place] (Verified Allergy, Unknown, UNKNOWN, 08/19/17) DESIREE Inhibitors (Verified Adverse Reaction, Mild, COUGH, 08/19/17) CAUSES COUGH Diphenhydramine (Verified Adverse Reaction, Mild, VERY WEAK, CHF, 08/19/17) Lisinopril (Verified Adverse Reaction, Mild, COUGH, 08/19/17) Nitroglycerin (Verified Adverse Reaction, Mild, HEADACHE/NAUSEA, 08/19/17) Sulfa Antibiotics (Verified Adverse Reaction, Mild, "KNOCKS ME OUT", ) Amlodipine (Verified Adverse Reaction, Unknown, RETAIN FLUID , 08/19/17) Physical Exam Vital Signs Date Time Temp Pulse Resp B/P (MAP) Pulse Ox O2 Delivery O2 Flow Rate FiO2 11/04/17 19:43 66 18 197/79 98 Room Air 11/04/17 18:38 61 20 197/79 98 Room Air 11/04/17 17:57 36.9 69 20 205/97 98 Room Air Physical Exam GENERAL: Awake, alert, well-appearing, NAD HENT: Normocephalic, atraumatic. EYES: Normal conjunctiva. Sclera non-icteric. PERRL. No anisocoria. NECK: Supple. No nuchal rigidity. FROM. RESPIRATORY: CTAB, no rhonchi, wheezing, crackles CARDIAC: RRR, no MRG ABDOMEN: Soft, NTND, BS+ MSK: No chest wall TTP, no LE edema. LUE swelling. Pulsatile bleeding over the fistula site. NVI distally. Compression bandage was applied. NEURO: GCS 15, CN 2-12 intact, moves all 4s on command SKIN: No rash or jaundice noted. Medical Decision & Procedures Laboratory Results 11/04/17 18:36 Red Blood Count 3.53, Mean Corpuscular Volume 94.3, Mean Corpuscular Hemoglobin 31.4, Mean Corpuscular Hemoglobin Concent 33.3, Mean Platelet Volume 11.4, Neutrophils (%) (Auto) 71.5, Lymphocytes (%) (Auto) 17.8, Monocytes (%) (Auto) 7.6, Eosinophils (%) (Auto) 2.5, Basophils (%) (Auto) 0.2, Neutrophils # (Auto) 3.79, Lymphocytes # (Auto) 0.94, Monocytes # (Auto) 0.40, Eosinophils # (Auto) 0.13, Basophils # (Auto) 0.01 11/04/17 18:36 Test 11/04/17 18:36 White Blood Count 5.29 K/uL (4.8-10.8) Red Blood Count 3.53 M/uL (4.2-5.4) Hemoglobin 11.1 g/dL (12.0-16.0) Hematocrit 33.3 % (37-47) Mean Corpuscular Volume 94.3 fL (80-100) Mean Corpuscular Hemoglobin 31.4 pg (25-34) Mean Corpuscular Hemoglobin Concent 33.3 g/dl (32-36) Platelet Count 102 K/uL (130-400) Mean Platelet Volume 11.4 fL (7.4-10.4) Neutrophils (%) (Auto) 71.5 % Lymphocytes (%) (Auto) 17.8 % Monocytes (%) (Auto) 7.6 % Eosinophils (%) (Auto) 2.5 % Basophils (%) (Auto) 0.2 % Neutrophils # (Auto) 3.79 K/uL (1.4-6.5) Lymphocytes # (Auto) 0.94 K/uL (1.2-3.4) Monocytes # (Auto) 0.40 K/uL (0.11-0.59) Eosinophils # (Auto) 0.13 K/uL (0-0.5) Basophils # (Auto) 0.01 K/uL (0-0.2) RDW Standard Deviation 51.6 fL (36.4-46.3) RDW Coefficient of Variation 15.0 % (11.5-14.5) Immature Granulocyte % (Auto) 0.4 % Immature Granulocyte # (Auto) 0.02 K/uL (0.00-0.02) Prothrombin Time 25.3 SECONDS (9.0-12.0) Prothromb Time International Ratio 2.5 (0.9-1.1) Activated Partial Thromboplast Time 33.2 SECONDS (21.0-31.0) Partial Thromboplastin Ratio 1.3 Anion Gap 3.0 mmol/L (3-11) Est Creatinine Clear Calc Drug Dose 27.7 ml/min Estimated GFR () 34.1 Estimated GFR (Non- 29.4 BUN/Creatinine Ratio 9.2 (10-20) Calcium Level 8.9 mg/dl (8.5-10.1) Total Bilirubin 1.0 mg/dl (0.2-1) Direct Bilirubin 0.2 mg/dl (0-0.2) Aspartate Amino Transf (AST/SGOT) 17 U/L (15-37) Alanine Aminotransferase (ALT/SGPT) 26 U/L (12-78) Alkaline Phosphatase 103 U/L (45-117) Total Protein 6.8 gm/dl (6.4-8.2) Albumin 3.5 gm/dl (3.4-5.0) Laboratory results reviewed by me ED Course 1747: The patient was evaluated in room A4B. A complete history and physical exam was performed. 1931: I reevaluated the patient. Discussed results and discharge instructions: she verbalized understanding and agreement. The patient is ready for discharge. Medical Decision Nursing notes reviewed. Ancillary studies and prior records reviewed. The patient is a 72 year old white female with a past medical history of A-fib, cardiomegaly, ICD placement, ESRD (on dialysis), CHF, HLD, diabetes, GERD, TIA, CVA, hyperparathyroidism, HTN, hysterectomy, PVD, anxiety and depression who presents to the ED with a cc of constant left forearm bleeding beginning 2.5 hours ago. Differential diagnosis: Etiologies such as coagulopathy, medication side effect, post-dialysis complication, anemia, as well as others were entertained. Patient was seen and evaluated the bedside. Patient does have a history of ESRD Friday and Friday and recently completed her hemodialysis but has had some persistent bleeding for her HD site in her left upper extremity. Patient does take Coumadin for A. fib. The patient states that she completed her full session. On exam the patient does have some pulsatile bleeding from the left forearm. The patient is neuro intact distally. She did have blood work completed and a compression bandage is placed over the site of bleeding. I initially did discuss topical thrombin with the pharmacy which was sent up. Decided to continue compression and then to reevaluate. Upon reevaluation the pressure bandage was removed and the patient had no evidence of any bleeding. This was hemostatic. Patient still did have a palpable thrill over the left upper extremity. The patient was neurovascularly intact distally. I did place 2 small dabs of skin glue over possible sites that had been bleeding prior. Patient otherwise is well-appearing. The patient 's blood work showed that she has some chronic kidney disease but was fairly unchanged from prior. Patient has some chronic but stable anemia. Patient does have some relative thrombocytopenia but this is chronic. Patient's INR is therapeutic. Given that the patient is hemodynamically stable without acute changes in lab abnormalities and the bleeding is now controlled the patient was told she may follow-up as needed as an outpatient. A light bandage was placed over the site. The patient was told that she can use gentle soap and water which not pick the skin glue. Patient was told to return if she any worsening symptoms. Medication Reconcilliation Current Medication List: was personally reviewed by me Blood Pressure Screening Patient's blood pressure: Elevated blood pressure Blood pressure disposition: Referred to PCP Impression Primary Impression: Bleeding from dialysis shunt Additional Impressions: Elevated INR Anemia ESRD (end stage renal disease) on dialysis Scribe Attestation The scribe's documentation has been prepared under my direction and personally reviewed by me in its entirety. I confirm that the note above accurately reflects all work, treatment, procedures, and medical decision making performed by me. Departure Information Dispostion Home / Self-Care Referrals Isabel Amezcua D.O. (PCP) Patient Instructions First Aid Bleeding, My [facility] Additional Instructions Please return to the emergency department if you have worsening or recurrent symptoms not amenable to at-home treatment. Please call for a follow-up appointment with her primary care physician. Please take your medications as prescribed. If you have other concerns and/or complaints please feel free to also call your primary care physician's office or return the ED for further evaluation, management, and treatment. You were found to have an elevated blood pressure today (>120 sytolic or >90 diastolic). Per medicare guidelines, you need to follow up with this blood pressure screening with your Primary Care Physician (PCP). For a new PCP call [phone]. Take your medications as prescribed. Please follow-up with your specialist as well as her PCP as needed. Please continue to keep your site wrapped with a light bandage. Please do not pick at the skin glue. Please return if you have worsening bleeding. You may apply gentle soap and water to the area when bathing. You have been examined and treated today on an emergency basis only. This is not a substitute for, or an effort to provide, complete comprehensive medical care. It is impossible to recognize and treat all injuries or illnesses in a single emergency department visit. It is therefore important that you follow up closely with [facility], your PCP, and/or your specialist(s). Call as soon as possible for an appointment. Thank you for your time and consideration. I look forward to speaking with you again soon. Please don't hesitate to call us if you have any questions. Problem Qualifiers Primary Impression: Bleeding from dialysis shunt Encounter type: initial encounter Qualified Codes: T82.838A - Hemorrhage due to vascular prosthetic devices, implants and grafts, initial encounter Additional Impressions: Anemia Anemia type: due to chronic kidney disease Chronic kidney disease stage: on chronic dialysis Qualified Codes: N18.6 - End stage renal disease; D63.1 - Anemia in chronic kidney disease; Z99.2 - Dependence on renal dialysis
== END 2017-11-04 20:14 | disposition home or self-care (01) ==
LOC: EDBD 17:43 → C.EDA 17:45
DX: T82.9XXA Unspecified complication of cardiac and vascular prosthetic device, implant and graft, initial encounter (principal); Y82.8 Other medical devices associated with adverse incidents; R58 Hemorrhage, not elsewhere classified; R79.1 Abnormal coagulation profile; D64.9 Anemia, unspecified; I13.2 Hypertensive heart and chronic kidney disease with heart failure and with stage 5 chronic kidney disease, or end stage renal disease; E11.22 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 diabetic chronic kidney disease; N18.6 End stage renal disease; F41.9 Anxiety disorder, unspecified; I48.91 Unspecified atrial fibrillation; Z95.810 Presence of automatic (implantable) cardiac defibrillator; Z99.2 Dependence on renal dialysis; Z86.73 Personal history of transient ischemic attack (TIA), and cerebral infarction without residual deficits; Z82.49 Family history of ischemic heart disease and other diseases of the circulatory system; Z79.82 Long term (current) use of aspirin; Z79.4 Long term (current) use of insulin; Z79.01 Long term (current) use of 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; Z79.899 Other long term (current) drug therapy; Z91.018 Allergy to other foods; Z88.8 Allergy status to other drugs, medicaments and biological substances

== ENCOUNTER 2018-10-30 12:28 | Inpatient (IN) ==
[2018-10-30] MEDS ORDERED: SODIUM CHLORIDE 0.9% 1000ML 1,000 ML IV SCH (13:00)
[2018-10-30] MEDS ORDERED: SODIUM CHLORIDE 0.9% 500 ML IV SCH (13:00)
[2018-10-30 13:28] LABS: Albumin Globulin Ratio 1.2 (0.9-2); Albumin Level 3.6 gm/dl (3.4-5.0); BUN Creatinine Ratio 9.8 (10-20); Bilirubin,Total 1.3 mg/dl (0.2-1); Creatinine Clr Calc Pharmacy 6.5 ml/min; Est GFR (African American) 6.1; Est GFR (Non-African American) 5.3; Magnesium 2.2 mg/dl (1.8-2.4); Potassium 4.1 mmol/L (3.5-5.1); Total Protein 6.6 gm/dl (6.4-8.2); Troponin I 0.124 ng/ml (0-0.045)
[2018-10-30 13:36] LABS: Hematocrit (blood only) 30.6 % (37-47); Hemoglobin 10.5 g/dL (12.0-16.0); Immature Granulocytes # (auto) 0.02 K/uL (0.00-0.02); Immature Granulocytes % (auto) 0.2 %; Lymphocytes # (auto) 0.42 K/uL (1.2-3.4); Lymphocytes % (auto) 4.9 %; Mean Corpuscular Hgb Conc 34.3 g/dL (32-36); Mean Corpuscular Volume 94.7 fL (80-100); Mean Platelet Volume 13.7 fL (7.4-10.4); Monocytes # (auto) 0.57 K/uL (0.11-0.59); Monocytes % (auto) 6.6 %; Neutrophils # (auto) 7.57 K/uL (1.4-6.5); Neutrophils % (auto) 88.3 %; Platelet Count 50 K/uL (130-400); Platelet Estimate Decreased (Normal); RDW Coefficient of Variation 13.8 % (11.5-14.5); RDW Standard Deviation 48.2 fL (36.4-46.3); Red Blood Count 3.23 M/uL (4.2-5.4); White Blood Count 8.58 K/uL (4.8-10.8)
[2018-10-30] MEDS ORDERED: ONDANSETRON INJ 2 MG/ML 2 ML VIAL IV STA (13:46)
--- NOTE | 2018-10-30 15:19 | CT Scan Report ---
CT abd pelvis wo con CT DOSE: 669.01 mGycm HISTORY: Nausea. Vomiting. vomiting, elevated LFTs TECHNIQUE: Multiaxial CT images of the abdomen and pelvis were performed without contrast. A dose lo wering technique was utilized adhering to the principles of ALARA. COMPARISON STUDY: 05/23/2012 FINDINGS: Scattered bibasilar atelectatic change. Trace pleural fluid right lung base. Small amount o f perihepatic ascites. Gravel and/or small gallstones within the gallbladder lumen. Trace ascites wit hin the paracolic gutter regions bilaterally. Moderate free fluid within the pelvic cul-de-sac. Bladder is midline. Small fat-containing nonobstruc tive periumbilical hernia. Slight increase in perinephric infiltrative changes bilaterally. Kidneys a re negative for hydronephrosis. IMPRESSION: 1. Mild scattered bibasilar atelectatic and/or infiltrative change. 2. Trace pleural fluid right base. 3. Small amount of abdominal and pelvic ascites. 4. Several gallstones. 5. Nonobstructive bowel pattern. The above report was generated using voice recognition software. It may contain grammatical, syntax or spelling errors. Electronically signed by: Isaac Marr M.D. 10/30/2018 3:17 PM
[2018-10-30 17:28] LABS: INR 2.3 (0.9-1.1); Prothrombin Time 21.9 Seconds (9.0-12.0)
--- NOTE | 2018-10-30 17:29 | History & Physical Report ---
Date of Service October 30, 2018 Assessment & Plan (1) Nausea, vomiting and diarrhea: (2) Abdominal pain: Pt is 73 y/o F with PMH idiopathic cardiomyopathy, systolic heart failure s/p ICD, SVT and paroxysmal atrial fibrillation on amiodarone and Coumadin, h/o pericardial window in 2014, h/o paroxysmal VT/torsades in setting of sepsis, insulin-dependent DM II, ESRD on HD, labile HTN, HLD, h/o TIA, MINAL refused CPAP, PVD, hyperparathyroidism, depression, anxiety not currently on medication, GERD presented to ER with complaints of N/V/D. Pt presented to ER with c/o vomiting and diarrhea x 3 days. Reports black color stools. Also complaining of lower abdominal pain described as constant aching. In ER pt afebrile, P: 74, R: 18, BP: 140/95, 98% on RA. WBC: 8, Hgb: 10.5 (at baseline), Na: 125, K: 4.1, Cl: 8.9, CO2: 24, glucose: 276, INR: 2.3, procalcitonin: 17, TSH: 2.9 -In ER received zofran, total of 1L NSS CT ABD/PELVIS: 1. Mild scattered bibasilar atelectatic and/or infiltrative change. 2. Trace pleural fluid right base. 3. Small amount of abdominal and pelvic ascites. 4. Several gallstones. 5. Nonobstructive bowel pattern. -pending lactic acid -pending c-diff, stool cultures -melena, pending hemoccult stool -monitor H&H -consult GI if Hgb dropping -will hold on further IVF at this time, as BP and pulse stable and pt on HD and missed yesterday, try to avoid fluid overload. Discussed IVF with application performance engineer nephro -monitor CBC, BMP (3) Ascites: (4) Elevated LFTs: CT ABD/PELVIS: Small amount of abdominal and pelvic ascites -pt is on amiodarone -repeat LFTs in am -U/S liver -may need to consider GI consult (5) Weakness: Reported generalized weakness Probable secondary to illness as above -monitor -PT/OT when appropriate (6) Cough: Reported non-productive cough x 1 week Negative influenza PCR CXR:1. Mild interstitial pulmonary edema and trace bilateral pleural effusions. 2. Cardiomegaly. -pt will need HD (7) Elevated troponin: Troponin: 0.124 Denies CP. Chronic renal disease. Paced rhythm on EKG -trend troponin -resting echo -continue statin, carvedilol (8) End-stage renal disease (ESRD): On HD on , Sat Missed Dialysis yesterday 10/29/18 -nephrology consult, assistance with HD (9) Idiopathic cardiomyopathy: S/P ICD Echo: 04/2018: EF: 40%, mild concentric LVH, moderate dilated RV, severely dilated R atrium, moderate tricupsid regurgitation (10) Paroxysmal atrial fibrillation: (11) Hx of supraventricular tachycardia: INR: 2.3 -continue amiodarone, coumadin, carvedilol -monitor INR (12) Diabetes mellitus, type II: Insulin dependent A1c: 8.7 on 03/2018 -Lantus, Novolog sliding scale -glycemic pharmacy consult (13) HTN (hypertension): Hx labile HTN Currently BP stable -continue carvedilol, hydralazine with holding parameters, torsemide (14) GERD (gastroesophageal reflux disease): -hold oral H2 martine and converted to IV for now with GI symptoms DVT Prophylaxis -On couamdin, INR therapeutic Full Code as per discussion with pt, however she reports would not want on prolonged life support if poor prognosis Follows with Dr Amezcua for routine care Pt was seen with Dr Dougherty. See addendum History of Present Illness Chief Complaint: N/V/D Primary Care Provider: Isabel Amezcua, DO Pt is 73 y/o F with PMH idiopathic cardiomyopathy, systolic heart failure s/p ICD, SVT and paroxysmal atrial fibrillation on amiodarone and Coumadin, h/o pericardial window in 2014, h/o paroxysmal VT/torsades in setting of sepsis, insulin-dependent DM II, ESRD on HD, labile HTN, HLD, h/o TIA, MINAL refused CPAP, PVD, hyperparathyroidism, depression, anxiety not currently on medication, GERD presented to ER with complaints of N/V/D. Patient states 2 days ago started with vomiting a couple of times a day and vomiting with any attempt of eating. Also reports multiple episodes of diarrhea which she describes as initially soft then liquid and reports it is black in color. Patient also complaining of lower abdominal pain described as aching which is constant. She states was producing small amount of urine however does not believe she has been urinating past 2 days. Patient states past couple days has been feeling very lethargic and generalized weakness. Patient states her blood sugar this morning was 574. Patient on Friday, , Friday dialysis schedule. Reports missed dialysis yesterday secondary to feeling ill. Patient states past week has had a nonproductive cough. States today noticed when she laid flat in the ambulance she became short of breath. Also noted orthopnea today while in ER when he was lying supine for CT abdomen. States has been sleeping in recliner past couple of days secondary to GI illness. Patient denies chest pain, palpitations, ICD firing. Denies ill contacts with similar symptoms. Denies recent antibiotic use, recent travel. Denies hematemesis. Feeling chills, unsure if she has had a fever. Patient states 2 days ago was trying to get out of bed and lost her balance and was able to slide herself to the floor. She denies hitting her head or any loss of consciousness. Denies diaphoresis, LIMA, dizziness, syncope, vision changes, neck pain, palpitations, hemoptysis, sore throat, choking, otalgia, rhinorrhea, paresthesias, extremity edema, rashes. History echo 04/2018: EF 40%, mild concentric LVH, moderate dilated RV, severely dilated right atrium, moderate tricuspid regurgitation Allergies Allergy/AdvReac Type Severity Reaction Status Date / Time adhesive Allergy Unknown RXN TO Verified 10/30/18 14:04 ADHESIVE ON NITRO PATCH strawberry Allergy Unknown UNKNOWN Verified 10/30/18 14:04 DESIREE Inhibitors AdvReac Mild COUGH Verified 10/30/18 14:04 diphenhydramine AdvReac Mild VERY WEAK, Verified 10/30/18 14:04 CHF lisinopril AdvReac Mild COUGH Verified 10/30/18 14:04 nitroglycerin AdvReac Mild HEADACHE/NA Verified 10/30/18 14:04 USEA Sulfa (Sulfonamide AdvReac Mild "KNOCKS ME Verified 10/30/18 14:04 Antibiotics) OUT" amlodipine AdvReac Unknown RETAIN Verified 10/30/18 14:04 FLUID Home Medications Home Medications Medication Instructions Recorded Confirmed Type amiodarone 200 mg PO DAILY 10/30/18 10/30/18 History aspirin 81 mg PO DAILY 10/30/18 10/30/18 History atorvastatin 40 mg PO HS 10/30/18 10/30/18 History calcium acetate 2 cap PO UD 10/30/18 10/30/18 History carvedilol 50 mg PO BID 10/30/18 10/30/18 History hydralazine 25 mg PO BID 10/30/18 10/30/18 History insulin aspart U-100 [Novolog 0 unit SUBCUT UD 10/30/18 10/30/18 History Flexpen U-100 Insulin] insulin glargine [Lantus Solostar 20 units SUBCUT PM 10/30/18 10/30/18 History U-100 Insulin] ranitidine HCl 150 mg PO BID 10/30/18 10/30/18 History torsemide 20 mg PO DAILY 10/30/18 10/30/18 History warfarin 4 mg PO PM 10/30/18 10/30/18 History Past Med/Surg History Medical History GERD (gastroesophageal reflux disease) (Chronic) Diabetes mellitus, type II (Chronic) Hx of supraventricular tachycardia (Chronic) Paroxysmal atrial fibrillation (Chronic) Idiopathic cardiomyopathy (Chronic) History of hysterectomy (Chronic) 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) Hypothermia (Resolved 07/24/13) Hypertensive urgency (Resolved) Bacteremia (Resolved) CHF NYHA class III (Chronic) Gram-positive bacteremia (Resolved) Depression (Chronic) Anxiety (Chronic) jail (current) use of 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 (Chronic) Degenerative cervical disc (Chronic) Slow transit constipation (Chronic) PVD (peripheral vascular disease) (Chronic) Proteinuria (Chronic) Hyperparathyroidism (Chronic) Biventricular ICD (implantable cardioverter-defibrillator) in place (Chronic) H/O TIA (transient ischemic attack) and stroke (Chronic) ESRD (end stage renal disease) on dialysis (Chronic) Hip fracture, left (Resolved) AV graft malfunction (Resolved) Bleeding from dialysis shunt (Resolved) Cardiomegaly (Chronic 11/07/11) MARGOT (acute kidney injury) (Acute) CKD (chronic kidney disease) (Chronic) HTN (hypertension) (Chronic) Surgical History History of appendectomy (Chronic) S/P pericardial surgery (Chronic) H/O dilation and curettage (Chronic) Family History Other Coronary heart disease Diabetes Social History Preferred Language: Bhutanese Mri Tech Required: No Beliefs That Will Affect Care: None Current Living Situation: Family Current Living Situation Comment: Cousin lives with her-Guillaume Other Information That Helps Us Care for You: Yes (see note) Feels Safe at Home: Yes Safety Concerns: Feels Safe At This Time Smoking Status: Never smoker Hx Alcohol Use: No Hx Substance Use: No Review of Systems Review of Systems: All systems reviewed & are unremarkable except as noted in HPI & below Physical Exam Physical Exam: General: no acute distress, overweight, chronic ill appearance, non-toxic appearing Head: normocephalic, atraumatic Eyes: PERRL, EOM's intact, conjunctiva non-injected, anicteric ENT: normal inspection external ears, nose, mucous membranes mildly dry Neck: supple, trachea midline Lungs: clear, no respiratory distress, no wheezing/rhonchi/rales CV: RRR, systolic murmur, no JVD, no pretibial edema Abd: hypoactive BS, soft, diffuse tenderness to palpation entire abdomen without rebound or guarding Ext: no cyanosis, no calf tenderness, +thrill left arm Neuro: A&O x 3, no focal deficits noted, normal affect Skin: warm, dry Results & Data Vital Signs (Past 12 Hours) Vital Signs Temp Pulse Pulse Resp BP BP Pulse Ox 10/30/18 17:01 63 18 120/55 L 95 10/30/18 15:28 63 18 108/53 L 94 10/30/18 14:17 60 18 109/55 L 94 10/30/18 12:50 96 10/30/18 12:43 36.7 C 74 18 140/95 98 Laboratory Results Short CBC 10/30/18 Range/Units 12:40 WBC 8.58 (4.8-10.8) K/uL Hgb 10.5 L (12.0-16.0) g/dL Hct 30.6 L (37-47) % Plt Count 50 L (130-400) K/uL BMP 10/30/18 12:40 Sodium 125 L Potassium 4.1 Chloride 89 L Carbon Dioxide 24 BUN 69 H Creatinine 7.05 H* Glucose 276 H Calcium 9.0 Cardiac Enzymes 10/30/18 Range/Units 12:40 Troponin I 0.124 H* (0-0.045) ng/ml Liver Function 10/30/18 Range/Units 12:40 Total Bilirubin 1.3 H (0.2-1) mg/dl AST 158 H (15-37) U/L ALT 135 H (12-78) U/L Alkaline Phosphatase 115 (45-117) U/L Albumin 3.6 (3.4-5.0) gm/dl Diagnostic Findings CT ABD/PELVIS: IMPRESSION: 1. Mild scattered bibasilar atelectatic and/or infiltrative change. 2. Trace pleural fluid right base. 3. Small amount of abdominal and pelvic ascites. 4. Several gallstones. 5. Nonobstructive bowel pattern. CXR: IMPRESSION: 1. Mild interstitial pulmonary edema and trace bilateral pleural effusions. This has progressed. 2. Cardiomegaly. ECG Findings: + paced rhythm Supervising Physician Co-Signing Physician Notes Attending addendum: Patient seen and examined care coordinated with Heather Ornelas PA-C This is a 73-year-old female with complicated past medical history of end-stage renal disease on dialysis, idiopathic cardiomyopathy, systolic heart failure EF of 40%, status post AICD, history of SVT and paroxysmal A. fib on amiodarone and Coumadin, history of pericardial window in 2014, history of paroxysmal VT torsade in the setting of sepsis, insulin-dependent type 2 diabetes, labile hypertension, Presented to ER today with complaint of ongoing nausea vomiting diarrhea, with black stool, and constant lower abdominal aching pain Her symptoms has been ongoing for the past 3-4 days, Unable to keep any food down, Missed dialysis today secondary to severe illness In the ER noted to have a chronically ill-appearing female, appears to be dehydrated, dry oral mucosa poor skin turgor Able to answer questions appropriately Blood work revealed pro-calcitonin elevated at 17, lactic acid 2.1, CT abdomen pelvis shows no evidence of acute pathology Patient is admitted to telemetry, started on broad-spectrum antibiotic with IV Vanco, cefepime, renally dosed Patient was given 1 L IV fluid in ER, will continue with gentle hydration as patient appears to be clinically dehydrated Nephrology consult placed for dialysis management Abnormal LFTs, Has ongoing nausea, poor appetite, no complaint of vomiting, No right upper quadrant tenderness Will hold amiodarone, statin, order for liver ultrasound Given the findings will consider GI consult if needed CODE STATUS: Discussed with patient, full code DVT prophylaxis: On Coumadin INR therapeutic Disposition: Presents with generalized weakness fatigue, also reports of falling at home/ patient uses walker at baseline PT OT evaluation will be ordered Social service consulted for discharge planning assistance Please refer to further documentation by Tory Ornelas PA-C for discussion of other chronic issues Kateryna Dougherty MD
[2018-10-30 17:59] LABS: Influenza A virus by PCR Neg for Influ A (Neg); Influenza B virus by PCR Neg for Influ B (Neg)
--- NOTE | 2018-10-30 17:59 | Emergency Department Note ---
Entered by Ivone Meek acting as a scribe for Phil Hearn MD ED Provider Note CHIEF COMPLAINT: Nausea and Vomiting HISTORY OF PRESENT ILLNESS: The patient is a 73 year old female who presents to the Emergency Room with complaints of nausea and vomiting the last 2 days. She states that she been vo miting right after she eats. She also reports having diarrhea. She states that she was supposed to have dialysis yesterday but was unable to go. The patient states that she has not eaten anything unusual and has not been around anyone sick. No medication taken for her symptoms. Family states that she has not been doing well at home. Nursing staff states that the patient's BSG was in the 500s en route per EMS but states that the patient's BSG was in the 200s here. Pt denies LOC, headache, fevers, chills, diaphoresis, visual changes, neck pain, chest pain, breathing difficulties, back pain, melena, hematochezia, urinary symptoms, numbness, lymphadenopathy, rash, or other complaints. REVIEW OF SYSTEMS: See HPI for pertinent positives and negatives. A total of ten systems were reviewed and were otherwise negative. PMHx/PSHx: ESRD, UTI, CKD, TIA, Appendectomy, Depression SOCIAL HISTORY: Patient lives at home with cousin. PHYSICAL EXAM: GENERAL: Awake, alert, uncomfortable-appearing, in no distress HENT: Normocephalic, atraumatic. Oropharynx unremarkable. Dry mucous membranes. EYES: Normal conjunctiva. Sclera non-icteric. NECK: Inspection normal. Non-tender. Supple. No nuchal rigidity. FROM. No masses. RESPIRATORY: Clear to auscultation. No wheezes. No rales. Normal respiratory effort. CARDIAC: Normal rate. Normal rhythm. No murmurs. No rubs. Extremities warm and well perfused. Pulses equal. No JVD. GI: Soft, non-distended. No tenderness to palpation. No rebound or guarding. No masses. RECTAL: Deferred. MUSCULOSKELETAL: Atraumatic. Chest examination reveals no tenderness. The back is symmetrical on inspection without obvious abnormality. There is no CVA te nderness to palpation. No joint edema. LOWER EXTREMITIES: Calves are equal size bilaterally and non-tender. No edema. No discoloration. NEURO: Normal sensorium. No sensory or motor deficits noted. SKIN: No rash or jaundice noted. EMERGENCY DEPARTMENT COURSE: 1301: The patient was evaluated in room A4A, and a complete history and physical examination were performed. 1518: I updated the patient who verbalized agreement and understanding of the treatment plan. 1539: I discussed the patient's case with Nataly Pan who will evaluate the patient for further management. MEDICAL DECISION MAKING: Triage Nursing notes reviewed. The patient's presentation and history were concerning for nausea, vomiting, and diarrhea with a history of end-stage renal disease. Etiologies such as gastroenteritis, food borne illness, infections, obstruction, pancreatitis, appendicitis, diverticulitis, inflammatory bowel disease, GI bleed, biliary pathology, toxicologic as well as others were entertained. the patient was evaluated. She was examined as above. An IV was established and she was gently hydrated. She was given Zofran and feels somewhat better with this. Her blood work revealed elevated LFTs, hyponatremia, and an elevated troponin. The patient's creatinine is significantly elevated compared to prior. She did miss dialysis. Patient has had a normal troponin in the past. ECG showed a paced rhythm. She had a CT imaging performed and this did show that she had cholelithiasis but no clear evidence of cholecystitis by CT criteria. No other pathology was noted. A consultation was made with the [facility] service. The patient was evaluated in the ER for further management. IMPRESSION: Nausea/Vomiting/Diarrhea, hyponatremia, ESRD, elevated trop, elevated LFTs PLAN: Admitted The scribe's documentation has been prepared under my direction and personally reviewed by me in its entirety. I confirm that the note above accurately reflects all work, treatment, procedures, and medical decision making performed by me. Impression & Plan Nausea, vomiting and diarrhea, End-stage renal disease (ESRD), Elevated troponin, Hyponatremia, Elevated LFTs Past Med/Surg History Medical History MARGOT (acute kidney injury) (Acute) CKD (chronic kidney disease) (Chronic) HTN (hypertension) (Chronic) Social History Feels Safe at Home: Yes Smoking Status: Former smoker Results & Data Vital Signs Vital Signs - 24 hr 10/30/18 12:43 10/30/18 12:50 10/30/18 14:17 Temperature 36.7 C Temperature Source Oral Sepsis Recent Fever Within 48 Hours No Sepsis Action Taken by Nursing No Action Required Pulse Rate 74 Pulse Rate [Left Finger] 60 Respiratory Rate 18 18 Blood Pressure 140/95 Blood Pressure [Right Arm] 109/55 L Blood Pressure Mean 110 Blood Pressure Mean [Right Arm] 73 Pulse Oximetry 98 96 94 Oxygen Delivery Method Room Air 10/30/18 15:28 10/30/18 17:01 Temperature Temperature Source Sepsis Recent Fever Within 48 Hours Sepsis Action Taken by Nursing Pulse Rate Pulse Rate [Left Finger] 63 63 Respiratory Rate 18 18 Blood Pressure Blood Pressure [Right Arm] 108/53 L 120/55 L Blood Pressure Mean Blood Pressure Mean [Right Arm] 71 76 Pulse Oximetry 94 95 Oxygen Delivery Method Home Medications Current Medication List: was personally reviewed by me Laboratory Data Attestation: I reviewed the patient's lab results. Result diagrams: 10/30/18 12:40 10/30/18 12:40 Lab Results 10/30/18 10/30/18 10/30/18 Range/Units 12:40 12:40 12:40 WBC 8.58 (4.8-10.8) K/uL RBC 3.23 L (4.2-5.4) M/uL Hgb 10.5 L (12.0-16.0) g/dL Hct 30.6 L (37-47) % MCV 94.7 (80-100) fL MCH 32.5 (25-34) pg MCHC 34.3 (32-36) g/dL RDW Std Deviation 48.2 H (36.4-46.3) fL RDW Coeff of Jacobo 13.8 (11.5-14.5) % Plt Count 50 L (130-400) K/uL MPV 13.7 H (7.4-10.4) fL Immature Gran % (Auto) 0.2 % Neut % (Auto) 88.3 % Lymph % (Auto) 4.9 % Meade % (Auto) 6.6 % Eos % (Auto) 0.0 % Baso % (Auto) 0.0 % Immature Gran # (Auto) 0.02 (0.00-0.02) K/uL Neut # (Auto) 7.57 H (1.4-6.5) K/uL Lymph # (Auto) 0.42 L (1.2-3.4) K/uL Meade # (Auto) 0.57 (0.11-0.59) K/uL Eos # (Auto) 0.00 (0-0.5) K/uL Baso # (Auto) 0.00 (0-0.2) K/uL Platelet Estimate Decreased (Normal) PT (9.0-12.0) Seconds INR (0.9-1.1) Sodium 125 L (136-145) mmol/L Potassium 4.1 (3.5-5.1) mmol/L Chloride 89 L (98-107) mmol/L Carbon Dioxide 24 (21-32) mmol/L Anion Gap 12.0 H (3-11) BUN 69 H (7-18) mg/dl Creatinine 7.05 H* (0.6-1.2) mg/dl Est Cr Clr Drug Dosing 6.5 ml/min Est GFR ( Amer) 6.1 Est GFR (Non-Af Amer) 5.3 BUN/Creatinine Ratio 9.8 L (10-20) Glucose 276 H (70-99) mg/dl Calcium 9.0 (8.5-10.1) mg/dl Magnesium 2.2 (1.8-2.4) mg/dl Total Bilirubin 1.3 H (0.2-1) mg/dl AST 158 H (15-37) U/L ALT 135 H (12-78) U/L Alkaline Phosphatase 115 (45-117) U/L Troponin I 0.124 H* (0-0.045) ng/ml Total Protein 6.6 (6.4-8.2) gm/dl Albumin 3.6 (3.4-5.0) gm/dl Globulin 3.0 (2.5-4.0) gm/dl Albumin/Globulin Ratio 1.2 (0.9-2) Procalcitonin 17.92 H (0-0.5) ng/ml TSH 2.950 (0.300-4.500) uIu/ml Influenza Type A Ag Influenza Type B Ag 10/30/18 10/30/18 Range/Units 12:40 17:04 WBC (4.8-10.8) K/uL RBC (4.2-5.4) M/uL Hgb (12.0-16.0) g/dL Hct (37-47) % MCV (80-100) fL MCH (25-34) pg MCHC (32-36) g/dL RDW Std Deviation (36.4-46.3) fL RDW Coeff of Jacobo (11.5-14.5) % Plt Count (130-400) K/uL MPV (7.4-10.4) fL Immature Gran % (Auto) % Neut % (Auto) % Lymph % (Auto) % Meade % (Auto) % Eos % (Auto) % Baso % (Auto) % Immature Gran # (Auto) (0.00-0.02) K/uL Neut # (Auto) (1.4-6.5) K/uL Lymph # (Auto) (1.2-3.4) K/uL Meade # (Auto) (0.11-0.59) K/uL Eos # (Auto) (0-0.5) K/uL Baso # (Auto) (0-0.2) K/uL Platelet Estimate (Normal) PT 21.9 H (9.0-12.0) Seconds INR 2.3 H (0.9-1.1) Sodium (136-145) mmol/L Potassium (3.5-5.1) mmol/L Chloride (98-107) mmol/L Carbon Dioxide (21-32) mmol/L Anion Gap (3-11) BUN (7-18) mg/dl Creatinine (0.6-1.2) mg/dl Est Cr Clr Drug Dosing ml/min Est GFR ( Amer) Est GFR (Non-Af Amer) BUN/Creatinine Ratio (10-20) Glucose (70-99) mg/dl Calcium (8.5-10.1) mg/dl Magnesium (1.8-2.4) mg/dl Total Bilirubin (0.2-1) mg/dl AST (15-37) U/L ALT (12-78) U/L Alkaline Phosphatase (45-117) U/L Troponin I (0-0.045) ng/ml Total Protein (6.4-8.2) gm/dl Albumin (3.4-5.0) gm/dl Globulin (2.5-4.0) gm/dl Albumin/Globulin Ratio (0.9-2) Procalcitonin (0-0.5) ng/ml TSH (0.300-4.500) uIu/ml Influenza Type A Ag Cancelled Influenza Type B Ag Cancelled Administered Medications Sodium Chloride (Nss 1000ml) 1,000 mls @ 125 mls/hr IV .Q8H DANY Stop: 10/30/18 20:59 Last Admin: 10/30/18 13:31 Dose: 125 mls/hr Documented by: [id number] Discontinued Medications Sodium Chloride (Nss) 500 mls @ 999 mls/hr IV .Q31M DANY Stop: 10/30/18 13:30 Last Infusion: 10/30/18 14:05 Dose: 0 mls/hr Documented by: [id number] Admin: 10/30/18 13:31 Dose: 999 mls/hr Documented by: [id number] Ondansetron HCl (Zofran) 4 mg IV NOW STA Stop: 10/30/18 13:47 Last Admin: 10/30/18 15:00 Dose: Not Given Documented by: [id number] Imaging Data Radiologist's Impression: Radiology results as stated below per my review and the radiologist's interpretation: CT abd pelvis wo con CT DOSE: 669.01 mGycm HISTORY: Nausea. Vomiting. vomiting, elevated LFTs TECHNIQUE: Multiaxial CT images of the abdomen and pelvis were performed without contrast. A dose lowering technique was utilized adhering to the principles of ALARA. COMPARISON STUDY: 05/23/2012 FINDINGS: Scattered bibasilar atelectatic change. Trace pleural fluid right lung base. Small amount of perihepatic ascites. Gravel and/or small gallstones within the gallbladder lumen. Trace ascites within the paracolic gutter regions bilaterally. Moderate free fluid within the pelvic cul-de-sac. Bladder is midline. Small fat-containing nonobstructive periumbilical hernia. Slight increase in perinephric infiltrative changes bilaterally. Kidneys are negative for hydronephrosis. IMPRESSION: 1. Mild scattered bibasilar atelectatic and/or infiltrative change. 2. Trace pleural fluid right base. 3. Small amount of abdominal and pelvic ascites. 4. Several gallstones. 5. Nonobstructive bowel pattern. The above report was generated using voice recognition software. It may contain grammatical, syntax or spelling errors. Electronically signed by: Isaac Marr M.D. 10/30/2018 3:17 PM ECG Data Attestation: I personally reviewed and interpreted this ECG as follows: Indication: vomiting Rate (beats per minute): 61 Rhythm: other (paced rhythm) Findings: no PVC and no ST elevation Blood Pressure Blood Pressure Findings: Normal blood pressure Discharge Plan Visit Data Chief Complaint: Hyperglycemia Other Complaint: Illness ED Provider: Phil Hearn Discharge Problem: Nausea, vomiting and diarrhea, End-stage renal disease (ESRD), Elevated troponin, Hyponatremia, Elevated LFTs Patient Disposition: Being Evaluated by Hospitalist Discharge Instructions Interventions: ED Discharge Assessment Last Done: 10/30/18 17:38 Forms Stand Alone Forms: My [facility] [employer] Prescriptions Prescriptions: No Action atorvastatin 40 mg tablet 40 mg PO HS RF: 0 carvedilol 25 mg tablet 50 mg PO BID RF: 0 torsemide 20 mg tablet 20 mg PO DAILY RF: 0 amiodarone 200 mg tablet 200 mg PO DAILY RF: 0 hydralazine 25 mg tablet 25 mg PO BID RF: 0 warfarin 4 mg tablet 4 mg PO PM RF: 0 ranitidine HCl 150 mg tablet 150 mg PO BID RF: 0 Novolog Flexpen U-100 Insulin 100 unit/mL (3 mL) Insulin Pen SUBCUT UD RF: 0 calcium acetate 667 mg capsule 2 cap PO UD RF: 0 Lantus Solostar U-100 Insulin 100 unit/mL (3 mL) insulin pen 20 units subcut PM RF: 0 aspirin 81 mg Tablet,Delayed Release (Dr/Ec) 81 mg PO DAILY RF: 0 Referrals Referrals: Isabel Amezcua DO [Primary Care Provider] - The scribe's documentation has been prepared under my direction and personally reviewed by me in its entirety. I confirm that the note above accurately reflects all work, treatment, procedures, and medical decision making performed by me.
--- NOTE | 2018-10-30 18:10 | XRay Report ---
XR chest 2V routine HISTORY: cough COMPARISON: Chest 10/14/2017. FINDINGS: Left-sided pacemaker/defibrillator. The heart remains enlarged. There is progressive inters titial and basilar thickening consistent with mild pulmonary edema. No pneumothorax. Trace bilateral pleural effusions. Mild elevation of the right hemidiaphragm, unchanged. Nodular density within the r ight lung base persists and favors a pulmonary vessel. No significant abnormality on the same day abd omen and pelvis CT at this location. Bibasilar linear densities favor scarring or atelectasis. IMPRESSION: 1. Mild interstitial pulmonary edema and trace bilateral pleural effusions. This has progressed. 2. Cardiomegaly. Electronically signed by: Cristian Renteria M.D. 10/30/2018 6:09 PM
[2018-10-30] MEDS ORDERED: LIDOCAINE/PRILOCAINE 2.5% EA CRM EXT PRN (18:21)
[2018-10-30] MEDS ORDERED: POLYETHYLENE (MIRALAX) 17 GM PACK PO PRN (18:21)
[2018-10-30] MEDS ORDERED: PHARMACY GLYCEMIC MGMT CONSULT PRN (18:53)
[2018-10-30] MEDS ORDERED: FAMOTIDINE 20MG/5ML IV PUSH IV SCH (19:00)
[2018-10-30] MEDS ORDERED: CALCIUM ACETATE 667 MG CAP PO SCH (19:00)
[2018-10-30] MEDS ORDERED: DEXTROSE 50% 50 ML SYRINGE IV PRN (19:15)
[2018-10-30] MEDS ORDERED: GLUCAGON FOR INJ 1 MG VIAL IM PRN (19:15)
[2018-10-30] MEDS ORDERED: GLUCOSE 40% GEL 15 GM TUBE PO PRN (19:15)
[2018-10-30] MEDS ORDERED: CARBOHYDRATES FOR HYPOGLYCEMIA PO PRN (19:15)
[2018-10-30] MEDS ORDERED: GLUCOSE 10 TABS/TUBE PO PRN (19:15)
[2018-10-30] MEDS ORDERED: INSULIN GLARGINE SOLOSTAR 100 UNITS/ML 3 ML PEN SQ SCH (19:30)
[2018-10-30 19:38] LABS: Troponin I 0.095 ng/ml (0-0.045)
[2018-10-30] MEDS ORDERED: LACTATED RINGER'S 500 ML IV ONE (20:05)
[2018-10-30] MEDS ORDERED: VANCOMYCIN CONSULT ACTIVE PRN (20:06)
[2018-10-30] MEDS ORDERED: CEFEPIME CONSULT ACTIVE PRN (20:40)
[2018-10-30] MEDS ORDERED: ATORVASTATIN 40 MG TAB PO SCH (21:00)
[2018-10-30] MEDS ORDERED: CEFEPIME 1,000 MG in SYRINGE 0 ML IV ONE (21:00)
[2018-10-30] MEDS ORDERED: VANCOMYCIN HCL 1,500 MG in SODIUM CHLORIDE 0.9% 500 ML IV ONE (21:00)
[2018-10-30] MEDS: WARFARIN SOD 4 MG TAB PO SCH (21:41)
[2018-10-30] MEDS: INSULIN ASPART 100 UNITS/ML 3 ML PEN SC SCH ×3 (21:45→23:43)
[2018-10-30] MEDS: CARVEDILOL 25 MG TAB PO SCH (21:46)
[2018-10-30] MEDS: FAMOTIDINE 20 MG in SYRINGE 3 ML IV SCH (21:51)
[2018-10-30] MEDS: ACETAMINOPHEN 325 MG TAB PO PRN (21:51)
[2018-10-30] MEDS: LACTATED RINGER'S 1,000 ML IV SCH (21:55)
[2018-10-31 00:55] LABS: Hematocrit (blood only) 27.8 % (37-47); Hemoglobin 9.6 g/dL (12.0-16.0)
[2018-10-31] MEDS: LACTATED RINGER'S 1,000 ML IV SCH (04:11)
[2018-10-31] MEDS: INSULIN ASPART 100 UNITS/ML 3 ML PEN SC SCH ×4 (04:14→21:49)
[2018-10-31] MEDS: ACETAMINOPHEN 325 MG TAB PO PRN (04:56)
--- NOTE | 2018-10-31 06:28 | Ultrasound Report ---
BILIARY ULTRASOUND CLINICAL HISTORY: elevated liver functions, ascites COMPARISON STUDY: CT scan dated 10/30/2018 FINDINGS: The liver measures 20 cm. No focal hepatic masses are visualized. There is no intrahepatic biliary ductal dilatation. The common bile duct is borderline dilated measuring 7 mm. The gallbladder is contracted and contains nonshadowing calculi/sludge. There is mild gallbladder wal l thickening which measures 4 mm. There is no right-sided hydronephrosis. There is a 12 mm right renal cyst. There is low volume ascites. The pancreatic duct is the upper limits of normal diameter measuring 3 mm. No pancreatic masses are v isualized. IMPRESSION: 1. Contracted gallbladder containing sludge/gravel. Mild wall thickening measuring 4 mm 2. No focal hepatic masses. 3. 7 mm common bile duct 4. Low volume ascites Electronically signed by: Tex Sanders M.D. 10/31/2018 6:26 AM
[2018-10-31] MEDS: CALCIUM ACETATE 667 MG CAP PO SCH (07:45)
[2018-10-31] MEDS ORDERED: CALCIUM ACETATE 667 MG CAP PO SCH (08:00)
[2018-10-31] MEDS: CARVEDILOL 25 MG TAB PO SCH ×3 (08:02→20:48)
[2018-10-31] MEDS: AMIODARONE 200 MG TAB PO SCH (08:02)
[2018-10-31] MEDS: TORSEMIDE 10 MG TAB PO SCH (08:02)
[2018-10-31 08:12] LABS: Prothrombin Time 39.7 Seconds (9.0-12.0)
[2018-10-31 08:15] LABS: INR 4.3 (0.9-1.1)
[2018-10-31 08:31] LABS: Hemoglobin 9.3 g/dL (12.0-16.0); Mean Corpuscular Hgb Conc 34.4 g/dL (32-36); Mean Corpuscular Volume 94.1 fL (80-100); Mean Platelet Volume 12.8 fL (7.4-10.4); Platelet Count 45 K/uL (130-400); Platelet Estimate Decreased (Normal); RDW Coefficient of Variation 13.7 % (11.5-14.5); RDW Standard Deviation 47.3 fL (36.4-46.3); Red Blood Count 2.87 M/uL (4.2-5.4); White Blood Count 6.89 K/uL (4.8-10.8)
[2018-10-31 08:35] LABS: Albumin Globulin Ratio 1.2 (0.9-2); Albumin Level 3.1 gm/dl (3.4-5.0); BUN Creatinine Ratio 10.9 (10-20); Bilirubin Direct 0.5 mg/dl (0-0.2); Bilirubin,Total 1.2 mg/dl (0.2-1); Calcium 8.2 mg/dl (8.5-10.1); Creatinine Clr Calc Pharmacy 6.6 ml/min; Est GFR (Non-African American) 5.2; Globulin 2.6 gm/dl (2.5-4.0); Potassium 3.8 mmol/L (3.5-5.1); Total Protein 5.7 gm/dl (6.4-8.2)
[2018-10-31] MEDS ORDERED: LACTATED RINGER'S 250 ML IV ONE (09:39)
[2018-10-31] MEDS ORDERED: PIPERACILL/TAZOBAC CONSULT ACTIVE PRN (10:03)
[2018-10-31] MEDS ORDERED: PIPERACILLIN/TAZOBACTAM 2.25 GM in DEXTROSE 5% 100 ML IV ONE (10:15)
--- NOTE | 2018-10-31 10:22 | Hospitalist Progress Note ---
Date of Service October 31, 2018 Assessment & Plan (1) Gram-positive cocci bacteremia: Severe sepsis: Blood culture drawn yesterday 10/30/2018: Grams positive cocci in chain Patient is already on IV vancomycin, Zosyn Discussed report of blood culture with Dr. Valderrama We will continue IV vancomycin and Zosyn for 24 hours Waiting for isolation and sensitivity report Ordered for repeat blood culture (2) Sepsis: Meets criteria for sepsis, patient found to be hypotensive, elevated lactic acid, elevated pro-calcitonin level more than 16 Gram-positive bacteremia: Blood culture 10/30/2018: Gram-positive cocci in chain Patient has approximate 10 cm scratch/cut connor on left buttock area-possible source of infection patient reports of falling, Hitting her walker 2 days back Presents with ongoing nausea vomiting, diarrhea for for 5 days Stool C. difficile negative Complaints worsening of mid abdominal pain CT abdomen pelvis noncontrast done yesterday 10/30/2018 Showed no evidence of colitis or obstruction IMPRESSION: - Small amount of abdominal and pelvic ascites. -Several gallstones. -Nonobstructive bowel pattern. Developed worsening of abdominal pain, with nausea, Profuse diarrhea leading to stool incontinence Ordered for CT abdomen pelvis with IV contrast, patient will get dialysis afterwards Radiology updated with the reason for repeat CT scan Patient empirically started with IV vancomycin, renally dosed, IV Zosyn for anaerobic coverage ID eval requested, case briefly discussed with Dr. Valderrama Ordered for repeat pro-calcitonin, lactic acid Discussed with nephrology, given end-stage renal disease, dialysis dependent, severe cardiomyopathy with EF of 30%, chest x-ray already shows evidence of pulmonary congestion If patient developed hypotension, recommends pressors instead of IV fluids Continue hemodynamic monitoring in PCU, very low threshold to transfer to ICU with any decline of hemodynamic parameters/need for IV pressure support Present on Admission?: Yes (3) EKG abnormality: Admission EKG shows prolonged QTC 575 Ordered to hold amiodarone, Need to keep magnesium > 2:, potassium level > 4 History of V. tach, torsade the setting of sepsis Ordered for daily EKG We will avoid medications, antibiotics which can cause worsening of QTC prolongation Telemetry monitoring Present on Admission?: Yes (4) Nausea, vomiting and diarrhea: Symptom has been ongoing for the past 4- 5 days Diarrhea worsened since admission, multiple liquids bowel movement overnight this morning, At present incontinent of liquid stool stool studies: Stool culture, C. difficile toxin assay Ordered Stool C. difficile negative We will do a repeat CT abdomen pelvis to rule out evidence of developing colitis given persistently elevated pro-calcitonin level Present on Admission?: Yes (5) Abdominal pain: CT ABD/PELVIS: 1. Mild scattered bibasilar atelectatic and/or infiltrative change. 2. Trace pleural fluid right base. 3. Small amount of abdominal and pelvic ascites. 4. Several gallstones. 5. Nonobstructive bowel pattern. Lactic acid was 2.1 on admission, improved to 1.4 with IV fluid Pro-calcitonin 16, Gram-positive bacteremia noted CT abdomen pelvis repeat with IV contrast to rule out any evidence of Present on Admission?: Yes (6) Elevated LFTs: Possibly secondary to sepsis? CT ABD/PELVIS: Small amount of abdominal and pelvic ascites -pt is on amiodarone-ordered to kept on hold -repeat LFTs in am: She has persistently elevated LFTs, normal alkaline phosphatase -U/S liver mild gallbladder wall thickening 4 mm no evidence of acute cholecystitis: Order to statin to be kept on hold Continue to follow daily LFT Present on Admission?: Yes (7) Weakness: Reported generalized weakness Probable secondary sepsis/infection/dehydration for ongoing GI loss nausea vomiting diarrhea Treatment of sepsis as outlined above, PT OT evaluation when appropriate Present on Admission?: Yes (8) Elevated troponin: troponin: 0.124 Secondary to sepsis, in the setting of end-stage renal disease, poor renal clearance Denies chest pain or shortness of breath, chronic renal disease. Paced rhythm on EKG -resting echo ordered -Continue Coreg, statin discontinued for abnormal liver enzymes Present on Admission?: Yes (9) End-stage renal disease (ESRD): On HD on , Sat Missed Dialysis 10/29/18 -nephrology consult, assistance with HD -Plan of care discussed with on-call rocket scientist, appreciate input Will have dialysis today without any volume/fluid removal: Sepsis, hypotension, dehydration recommend to minimize IV fluid resuscitation For sepsis, hypotension Patient is anuric-does not make any urine at all idiopathic cardiomyopathy with Poor ejection fraction, chest x-ray already shows evidence of pulmonary congestion Recommends IV pressor support if needed for hypotension to maintain organ perfusion in the setting of/sepsis Present on Admission?: Yes (10) Idiopathic cardiomyopathy: S/P ICD Echo: 04/2018: EF: 40%, mild concentric LVH, moderate dilated RV, severely dilated R atrium, moderate tricupsid regurgitation Present on Admission?: Yes (11) Paroxysmal atrial fibrillation: Continue on Coreg, Amiodarone kept on hold secondary to elevated liver enzymes On Coumadin, kept on hold INR more than 3 (12) Hx of supraventricular tachycardia: -Continue on Coreg, INR therapeutic, Coumadin kept on hold -monitor INR (13) Diabetes mellitus, type II: Insulin dependent A1c: 8.7 on 03/2018 -Lantus, Novolog sliding scale -glycemic pharmacy consult Present on Admission?: Yes (14) HTN (hypertension): Became hypotensive Presents with sepsis, gram-positive bacteremia, ongoing GI loss, profuse watery diarrhea Order to hold torsemide, hydralazine Coreg continued with holding parameters (15) GERD (gastroesophageal reflux disease): -hold oral H2 martine and converted to IV for now with GI symptoms DVT Prophylaxis - INR therapeutic Full Code as per discussion with pt, however she reports would not want on prolonged life support if poor prognosis Follows with Dr Amezcua for routine care Continue to monitor in PCU Subjective Patient mentions that she feels worse today, ongoing nausea, developed abdominal pain after clear liquid diet this morning, multiple bouts of Liquid diarrhea throughout the night and this morning Feels completely wiped out /worsening of weakness and fatigue abdomen pain mostly localized at midabdomen periumbilical area blood pressure is borderline low Systolic in the 100s, a.m. hydralazine dose kept on hold Physical Exam Constitutional: + ill appearing Very pale appearing, generalized weakness, fatigue Eyes: PERRL, conjunctivae normal, anicteric sclerae ENMT: Mouth: + oral mucosal abnormality (dry oral mucosa) Neck: trachea midline, no thyromegaly Respiratory: normal respiratory effort, lungs clear to auscultation Auscultation: no crackles, no rales and no wheezes Cardiovascular: Rate/Rhythm: regular rate and regular rhythm Trace bilateral pedal edema Gastrointestinal (Abdomen): Inspection/Auscultation: + abdomen distended and normal bowel sounds Percussion/Palpation: + abdomen tender (Mostly in central abdomen area,) and abdomen soft; no guarding and abdomen not rigid No right upper quadrant tenderness Musculoskeletal: Approximately 8 inches of scratch/cut connor on left buttock area, Patient reports of falling 2 days ago Skin: Appears to be Neurologic: PERRL, EOMI, accommodation nl, no face palsy, no dysarthria , Occasional confusion noted Psychiatric: Orientation: alert Affect: + flat affect Results & Data Vital Signs (Past 12 Hours) Vital Signs Temp Pulse Pulse Resp BP Pulse Ox 10/31/18 07:27 36.4 C L 60 16 100/59 L 95 10/31/18 04:02 36.5 C 62 19 105/61 99 10/31/18 00:56 60 10/30/18 22:54 37.2 C 63 18 113/63 94 (1) Diabetes mellitus, type II Diabetes mellitus mcc insulin use: unspecified mcc insulin use status Diabetes mellitus complication status: with kidney complications Diabetes mellitus complication detail: with chronic kidney disease Chronic kidney disease stage: on chronic dialysis Qualified Code(s): E11.22 - 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 diabetic chronic kidney disease; N18.6 - End stage renal disease; Z99.2 - Dependence on renal dialysis (2) Sepsis Sepsis type: sepsis due to unspecified organism Qualified Code(s): A41.9 - Sepsis, unspecified organism (3) GERD (gastroesophageal reflux disease) Esophagitis presence: esophagitis presence not specified Qualified Code(s): K21.9 - Gastro-esophageal reflux disease without esophagitis (4) Abdominal pain Abdominal location: periumbilical Qualified Code(s): R10.33 - Periumbilical pain (5) HTN (hypertension) Hypertension type: unspecified Qualified Code(s): I10 - Essential (primary) hypertension
--- NOTE | 2018-10-31 10:36 | XRay Report ---
XR chest 1V portable CLINICAL HISTORY: Congestive failure COMPARISON STUDY: 10/30/2018 FINDINGS: The heart remains enlarged. There is a left subclavian pacer/defibrillator present. There i s slight improvement in the mild pulmonary vascular congestion. There are linear opacities at both ranjit ng bases likely representing subsegmental atelectasis.[ There is suspected left shoulder calcific ten dinitis. IMPRESSION: 1. Cardiomegaly and improving mild pulmonary vascular congestion 2. Linear opacities at both lung bases, likely representing subsegmental atelectasis Electronically signed by: Tex Sanders M.D. 10/31/2018 10:34 AM
[2018-10-31 10:53] LABS: Hepatitis B Surface Antibody Non-Immune
[2018-10-31 11:03] LABS: Hepatitis B Surface Antigen Neg (Neg)
[2018-10-31] MEDS ORDERED: IOVERSOL 100ml IV PRN (11:31)
--- NOTE | 2018-10-31 11:37 | Infectious Disease Consult ---
Date of Consultation October 31, 2018 Assessment & Plan (1) Gram positive sepsis: 73-year-old female with gram-positive sepsis, suspect streptococcal given Gram stain findings. Potential sources buttock abrasion. Will continue on current antibiotics pending final identification and sensitivities. Will follow. History of Present Illness Reason for Consultation: Sepsis Attending Physician: Kateryna Dougherty MD History of Present Illness 73-year-old female with complicated medical history including diabetes mellitus, paroxysmal atrial fibrillation, idiopathic cardiomyopathy, end-stage renal disease, status post AICD, who was admitted to the hospital with 3-4 days of progressively worsening nausea, vomiting, and diarrhea. Complaining of diffuse abdominal discomfort. Was brought to the ER with signs of sepsis with elevated pro-calcitonin, but CT scan and x-rays did not show obvious source of infection. Started empirically on vancomycin and Zosyn, now blood cultures reported positive for gram-positive cocci in chains. Patient reports fall suffering an injury to her buttock recently. Denies any significant cough, no rash, no joint complaints. Allergies Allergy/AdvReac Type Severity Reaction Status Date / Time adhesive Allergy Unknown RXN TO Verified 10/30/18 14:04 ADHESIVE ON NITRO PATCH strawberry Allergy Unknown UNKNOWN Verified 10/30/18 14:04 DESIREE Inhibitors AdvReac Mild COUGH Verified 10/30/18 14:04 diphenhydramine AdvReac Mild VERY WEAK, Verified 10/30/18 14:04 CHF lisinopril AdvReac Mild COUGH Verified 10/30/18 14:04 nitroglycerin AdvReac Mild HEADACHE/NA Verified 10/30/18 14:04 USEA Sulfa (Sulfonamide AdvReac Mild "KNOCKS ME Verified 10/30/18 14:04 Antibiotics) OUT" amlodipine AdvReac Unknown RETAIN Verified 10/30/18 14:04 FLUID Home Medications Home Medications Medication Instructions Recorded Confirmed Type amiodarone 200 mg PO DAILY 10/30/18 10/30/18 History aspirin 81 mg PO DAILY 10/30/18 10/30/18 History atorvastatin 40 mg PO HS 10/30/18 10/30/18 History calcium acetate 2 cap PO UD 10/30/18 10/30/18 History carvedilol 50 mg PO BID 10/30/18 10/30/18 History hydralazine 25 mg PO BID 10/30/18 10/30/18 History insulin aspart U-100 [Novolog 0 unit SUBCUT UD 10/30/18 10/30/18 History Flexpen U-100 Insulin] insulin glargine [Lantus Solostar 20 units SUBCUT PM 10/30/18 10/30/18 History U-100 Insulin] ranitidine HCl 150 mg PO BID 10/30/18 10/30/18 History torsemide 20 mg PO DAILY 10/30/18 10/30/18 History warfarin 4 mg PO PM 10/30/18 10/30/18 History Patient History Medical History GERD (gastroesophageal reflux disease) (Chronic) Diabetes mellitus, type II (Chronic) Hx of supraventricular tachycardia (Chronic) Paroxysmal atrial fibrillation (Chronic) Idiopathic cardiomyopathy (Chronic) History of hysterectomy (Chronic) 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) Hypothermia (Resolved 07/24/13) Hypertensive urgency (Resolved) Bacteremia (Resolved) CHF NYHA class III (Chronic) Gram-positive bacteremia (Resolved) Depression (Chronic) 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) Degenerative cervical disc (Chronic) Slow transit constipation (Chronic) PVD (peripheral vascular disease) (Chronic) Proteinuria (Chronic) Hyperparathyroidism (Chronic) Biventricular ICD (implantable cardioverter-defibrillator) in place (Chronic) H/O TIA (transient ischemic attack) and stroke (Chronic) ESRD (end stage renal disease) on dialysis (Chronic) Hip fracture, left (Resolved) AV graft malfunction (Resolved) Bleeding from dialysis shunt (Resolved) Cardiomegaly (Chronic 11/07/11) MARGOT (acute kidney injury) (Acute) CKD (chronic kidney disease) (Chronic) HTN (hypertension) (Chronic) Surgical History History of appendectomy (Chronic) S/P pericardial surgery (Chronic) H/O dilation and curettage (Chronic) Family History Other Coronary heart disease Diabetes Social History Preferred Language: Omani Communication Ability: Effective Java Web User Interface Developer Required: No Beliefs That Will Affect Care: None Current Living Situation: Family Current Living Situation Comment: Cousin lives with her-Guillaume Other Information That Helps Us Care for You: Yes (see note) Feels Safe at Home: Yes Safety Concerns: Feels Safe At This Time Smoking Status: Never smoker Hx Alcohol Use: No Hx Substance Use: No Review of Systems Review of Systems: All systems reviewed & are unremarkable except as noted in HPI & below Physical Exam Constitutional: WD/WN, vitals as above + ill appearing and comfortable; no acute distress Eyes: PERRL, conjunctivae normal, anicteric sclerae ENMT: external ear and nose normal, oropharynx normal Neck: trachea midline, no thyromegaly neck nontender Respiratory: normal respiratory effort, lungs clear to auscultation normal percussion; does not use accessory muscles Cardiovascular: Rate/Rhythm: regular rate and regular rhythm Heart Sounds: normal S1 and normal S2; no gallop, no murmur and no cardiac rub Vessels: normal peripheral pulses; no JVD Gastrointestinal (Abdomen): Inspection/Auscultation: abdomen normal to inspection and + abdomen distended Percussion/Palpation: + abdomen tender; no hepatosplenomegaly and no abdominal mass Musculoskeletal: no cyanosis or clubbing, extremities motor strength 5/5 Spine: thoracic spine normal to inspection and lumbar spine normal to inspection; no cervical spinal tenderness Skin: no rashes, warm and dry normal turgor; no lesions Neurologic: patellar DTR's 2+ bilat, sensation intact no focal motor deficits Psychiatric: A+Ox3, euthymic affect Orientation: cooperative Lymphatic: no cervical or axillary lymphadenopathy no inguinal lympha denopathy Results & Data Vital Signs (Past 12 Hours) Vital Signs Temp Pulse Pulse Resp BP Pulse Ox 10/31/18 10:47 121/67 10/31/18 07:27 36.4 C L 60 16 100/59 L 95 10/31/18 04:02 36.5 C 62 19 105/61 99 10/31/18 00:56 60 Laboratory Results Short CBC 10/30/18 10/31/18 10/31/18 Range/Units 12:40 00:47 07:05 WBC 8.58 6.89 (4.8-10.8) K/uL Hgb 10.5 L 9.6 L 9.3 L (12.0-16.0) g/dL Hct 30.6 L 27.8 L 27.0 L (37-47) % Plt Count 50 L 45 L (130-400) K/uL BMP 10/30/18 10/31/18 12:40 07:05 Sodium 125 L 127 L Potassium 4.1 3.8 Chloride 89 L 93 L Carbon Dioxide 24 23 BUN 69 H 77 H Creatinine 7.05 H* 7.12 H* Glucose 276 H 174 H Calcium 9.0 8.2 L Cardiac Enzymes 10/30/18 10/30/18 10/31/18 Range/Units 12:40 18:54 00:47 Troponin I 0.124 H* 0.095 H* 0.075 H* (0-0.045) ng/ml Liver Function 10/30/18 10/31/18 Range/Units 12:40 07:05 Total Bilirubin 1.3 H 1.2 H (0.2-1) mg/dl Direct Bilirubin 0.5 H (0-0.2) mg/dl AST 158 H 160 H (15-37) U/L ALT 135 H 166 H (12-78) U/L Alkaline Phosphatase 115 93 (45-117) U/L Albumin 3.6 3.1 L (3.4-5.0) gm/dl Diagnostic Findings Microbiology 10/30/18 20:34 Blood Blood Culture - Preliminary Gram positive cocci in chains 10/30/18 20:43 Blood Blood Culture - Preliminary Gram positive cocci in chains XR chest 1V portable CLINICAL HISTORY: Congestive failure COMPARISON STUDY: 10/30/2018 FINDINGS: The heart remains enlarged. There is a left subclavian pacer/defibrillator present. There is slight improvement in the mild pulmonary vascular congestion. There are linear opacities at both lung bases likely representing subsegmental atelectasis.[ There is suspected left shoulder calcific tendinitis. IMPRESSION: 1. Cardiomegaly and improving mild pulmonary vascular congestion 2. Linear opacities at both lung bases, likely representing subsegmental atelectasis Electronically signed by: Tex Sanders M.D.
[2018-10-31] MEDS ORDERED: POTASSIUM CHLORIDE 10 MEQ TABCR PO STA (11:41)
--- NOTE | 2018-10-31 11:49 | CT Scan Report ---
CT abd pelvis IV con only CLINICAL HISTORY: SEPSIS /ABDOMINAL PAIN COMPARISON STUDY: 10/30/2018 TECHNIQUE: The patient was scanned in a dynamic helical fashion during intravenous administration of 94 cc of Optiray 320. A dose lowering technique was utilized adhering to the principles of ALARA. CT DOSE: 376.21 mGy.cm FINDINGS: Lower chest: There are small bilateral pleural effusions. Basilar airspace opacities, are likely atel ectatic. The heart is enlarged. There is a small pericardial effusion. Liver: There is slightly heterogeneous hepatic enhancement. No focal masses are visualized. Portal ve in appears patent. The liver appears mildly enlarged measuring 19 cm. Gallbladder: The gallbladder is contracted. Gallstones are visualized. Spleen: Spleen is the upper limits of normal in size. There is a nonspecific 6 mm splenic hypodensity Pancreas: The pancreas appears atrophic. There is no ductal dilatation. No pancreatic masses are visu alized. Adrenal glands: Unremarkable. Kidneys: No focal renal masses are visualized. There is no hydronephrosis. Bowel: There is a rectal catheter present. There are no transition zones indicate bowel obstruction. There is mild diffuse colonic wall thickening. This could indicate a mild pancolitis. There is howeve r ascites and heterogeneous hepatic enhancement. Colonic wall edema can also be seen in the setting o f hepatocellular disease. Peritoneum: There is low volume ascites. No free intraperitoneal air is visualized. Vasculature: The abdominal aorta is normal in course and caliber. Adenopathy: None. Pelvic viscera: The uterus appears surgically absent. There is borderline bladder wall thickening. Skeletal structures: Degenerative changes are present within the spine. There is a bipolar left hip p rosthesis. IMPRESSION: 1. No evidence of bowel obstruction. No evidence of free air 2. Mild hepatomegaly, low volume ascites, and heterogeneous hepatic enhancement. Clinical correlation in regards to hepatocellular disease is recommended 3. Mild diffuse colonic wall thickening. Likely diagnostic considerations include a diffuse colitis, or bowel wall thickening secondary to hepatocellular disease. 4. Minor bladder wall thickening. Correlation with urinalysis is recommended to exclude a cystitis 5. Small bilateral pleural effusions. Basilar opacities statistically atelectatic Electronically signed by: Tex Sanders M.D. 10/31/2018 11:48 AM
[2018-10-31] MEDS: FAMOTIDINE 20 MG in SYRINGE 3 ML IV SCH (11:59)
--- NOTE | 2018-10-31 12:20 | Consultation Report ---
DATE OF CONSULTATION: 10/31/2018 NEPHROLOGY CONSULTATION HISTORY OF PRESENT ILLNESS: The patient is a 73-year-old female with extensive medical problems including end-stage renal disease on hemodialysis Friday, , Friday as well as extensive cardiac problems, insulin-dependent diabetes, who presented to the hospital with nausea, vomiting, diarrhea for 3 days. She was also very weak. She missed her last dialysis on . Workup so far has revealed that she is septic with gram-positive bacteremia. She did have elevated lactic acid at the time of presentation. She did get IV fluid yesterday as a bolus as well as ongoing maintenance until this morning. The patient's blood pressure was somewhat lower than usual. Today is her dialysis day and she is getting ready to have dialysis at this time. Lactic acid has normalized. She does have elevated LFT also. As of now, she has not required any pressors. She is having lot of diarrhea and it is negative for C. diff. REVIEW OF SYSTEMS: As detailed in HPI unless stated otherwise, 12 systems reviewed and negative. ALLERGIES: Reviewed. HOME MEDICATIONS: List was reviewed. PAST MEDICAL AND SURGICAL HISTORY: Extensive list and reviewed as per the H and P. PHYSICAL EXAMINATION: GENERAL: Elderly white female who is awake, alert, oriented. She looks weak and tired, but was able to answer all my questions. She is lying down flat at this time. VITAL SIGNS: Blood pressure 121/67, 95% on room air. HEENT: Mucous membrane is moist. NECK: Supple. Jugular venous distention is present. CHEST: Bilateral occasional basal crackles. CARDIOVASCULAR: S1 and S2, regular. Soft systolic murmur heard. ABDOMEN: Soft and diffusely tender. EXTREMITIES: Shows trace edema bilaterally. SKIN: No rashes noted. LABORATORY TESTS: Reviewed in full detail. Blood work from this morning show sodium 127, potassium 3.8, BUN 77, creatinine 7.12. Lactic acid has normalized, elevated LFT. Procalcitonin 16.26. Blood culture is positive for gram-positive cocci in chains. ASSESSMENT AND PLAN: A 73-year-old female with end-stage renal disease, on chronic hemodialysis Friday, , Friday as well as very extensive list of medical problems, both cardiac as well as pulmonary, presenting with nausea, vomiting, diarrhea and belly pain for the last 3-4 days. She was found to be bacteremic with gram-positive cocci in chains: 1. End-stage renal disease: She has not had dialysis since Friday. We will do dialysis today mainly for clearance. I did discuss with the primary service that even though she has had diarrhea for many days, she is actually in some degree of congestive heart failure based on her chest x-ray as well as her symptomatology. She has already received enough fluid since admission and I would not give more IV fluid, but on the same hand, I would not be taking any fluid off today with dialysis. Her blood pressure at this time is acceptable for somebody with dialysis and poor cardiac status. Cut down the dose of carvedilol to 25 twice daily and have hold parameters for blood pressure less than 100. If her blood pressure does drop, I would consider putting her on a pressors as opposed to more IV fluid. 2. Sepsis/bacteremia. Treatment as per primary service. . MTDD
[2018-10-31 12:39] LABS: Hematocrit (blood only) 28.5 % (37-47); Hemoglobin 9.9 g/dL (12.0-16.0)
--- NOTE | 2018-10-31 15:18 | Pharmacy Report ---
Glycemic Control Consultation - Date of Service October 31, 2018 - Scope Scope: Glycemic Pharmacist consulted for glycemic control and to write orders per [facility] ED inpatient glycemic control protocol - Objective Weight: 72.3 kg Accuchecks BSG (last 24hrs): 10/30/18 10/30/18 10/30/18 12:37 19:16 19:17 Glucose POC Glucose 276 H 240 H 257 H 10/30/18 10/30/18 10/31/18 21:27 23:40 04:12 Glucose POC Glucose 250 H 228 H 165 H 10/31/18 10/31/18 10/31/18 07:04 07:05 11:09 Glucose 174 H POC Glucose 185 H 251 H 10/31/18 14:43 Glucose POC Glucose 125 H Laboratory Data (last 24hrs): 10/31/18 07:05 Potassium 3.8 Carbon Dioxide 23 Anion Gap 11.0 Creatinine 7.12 H* Est Cr Clr Drug Dosing 6.6 - Recent Pertinent Medications Outpatient Anti-diabetic Regimen: * Lantus 20 units qPM * Novolog 12 units TIDM * A1c not ordered 2nd hx HD The patient is currently receiving: * Basal insulin: Lantus 20 units x1 on 10/30 PM * Correctional Insulin: Novolog Correction per scale ACHS Goal Range: Low 110 mg/dL - High 140 mg/dL Correction Factor: 20 mg/dL/unit * Prandial insulin: Per carb ratio of 1 unit per 8 grams CHO consumed Risk Factors for Insulin Resistance: * Infection * Diet: Clear liquid changed to NPO this AM after breakfast - Assessment & Plan Assessment & Plan: ASSESSMENT: * 73 yo F with T2DM admitted with sepsis/GPC bacteremia 2nd possible GI or SST infection * BSG's in 200's yesterday and trended down, now 125 mg/dL prior to lunch BSG. Patient is now also NPO * Will change Novolog to q6h for NPO status, increase goal range and loosen parameters to prevent hypoglycemia * Will decrease Lantus dose and base on BSG tonight PLAN FOR INPATIENT GLYCEMIC CONTROL: * Basal insulin: Lantus HS based on BSG * 10 units for BSG < 120 mg/dL * 15 units for BSG 120-180 mg/dL * 20 units for BSG > 180 mg/dL * Bolus insulin * NovoLog per scale ACHS or Q6hrs while NPO * Goal Range: Low 120 mg/dL - High 160 mg/dL * Correction Factor: 30 mg/dL/unit * Nutritional / Prandial insulin per carb ratio of 1 unit per 10 grams CHO consumed * Please note that the plan above was derived based on current level of insulin resistance and hospital stress. These recommendations are appropriate for inpatient admission only. Plan of care upon discharge will need to be reassessed to avoid potential outpatient hypo/hyperglycemia. Thank you.
[2018-10-31] MEDS ORDERED: VANCOMYCIN HCL 750 MG in SODIUM CHLORIDE 0.9% 250 ML IV SCH (16:00)
[2018-10-31] MEDS: MAGNESIUM SULFATE / D5W 1 GM/100 ML BAG IV SCH ×2 (17:13→18:46)
[2018-10-31] MEDS ORDERED: INSULIN ASPART 100 UNITS/ML 3 ML PEN SC SCH (18:00)
[2018-10-31 18:41] LABS: BUN Creatinine Ratio 7.6 (10-20); Calcium 8.5 mg/dl (8.5-10.1); Creatinine Clr Calc Pharmacy 12.4 ml/min; Est GFR (African American) 13.1; Est GFR (Non-African American) 11.3; Magnesium 2.2 mg/dl (1.8-2.4); Potassium 3.6 mmol/L (3.5-5.1)
[2018-10-31] MEDS: PIPERACILLIN/TAZOBACTAM 3.375 GM in DEXTROSE 5% 100 ML IV SCH (20:47)
[2018-10-31] MEDS ORDERED: CEFEPIME 1,000 MG in SYRINGE 0 ML IV SCH (21:00)
[2018-10-31] MEDS: INSULIN GLARGINE SOLOSTAR 100 UNITS/ML 3 ML PEN SQ SCH (21:49)
[2018-10-31] MEDS: ACETAMINOPHEN 1,000 MG/100 ML VIAL IV PRN (21:56)
[2018-11-01] MEDS: PIPERACILLIN/TAZOBACTAM 3.375 GM in DEXTROSE 5% 100 ML IV SCH ×2 (06:06→17:47)
[2018-11-01] MEDS: CALCIUM ACETATE 667 MG CAP PO SCH ×3 (08:09→17:43)
[2018-11-01] MEDS: CARVEDILOL 25 MG TAB PO SCH ×2 (08:09→19:34)
[2018-11-01] MEDS: INSULIN ASPART 100 UNITS/ML 3 ML PEN SC SCH ×4 (08:12→21:36)
[2018-11-01] MEDS: FAMOTIDINE 20 MG in SYRINGE 3 ML IV SCH (08:18)
[2018-11-01] MEDS ORDERED: INSULIN GLARGINE SOLOSTAR 100 UNITS/ML 3 ML PEN SQ ONE (09:00)
[2018-11-01 09:06] LABS: Hematocrit (blood only) 28.9 % (37-47); Hemoglobin 9.8 g/dL (12.0-16.0); Mean Corpuscular Hgb Conc 33.9 g/dL (32-36); Mean Corpuscular Volume 95.4 fL (80-100); Mean Platelet Volume 13.7 fL (7.4-10.4); Platelet Count 44 K/uL (130-400); RDW Coefficient of Variation 13.8 % (11.5-14.5); RDW Standard Deviation 47.7 fL (36.4-46.3); Red Blood Count 3.03 M/uL (4.2-5.4); White Blood Count 4.91 K/uL (4.8-10.8)
[2018-11-01 09:07] LABS: Platelet Estimate Decreased (Normal)
[2018-11-01 09:18] LABS: Prothrombin Time 40.4 Seconds (9.0-12.0)
[2018-11-01 09:23] LABS: BUN Creatinine Ratio 6.9 (10-20); Bilirubin Direct 0.5 mg/dl (0-0.2); Bilirubin,Total 1.2 mg/dl (0.2-1); Calcium 8.1 mg/dl (8.5-10.1); Creatinine Clr Calc Pharmacy 9.9 ml/min; Est GFR (African American) 9.8; Est GFR (Non-African American) 8.4; Potassium 3.8 mmol/L (3.5-5.1); Total Protein 5.9 gm/dl (6.4-8.2)
--- NOTE | 2018-11-01 09:26 | Pharmacy Report ---
Pharmacy Glycemic Short Note 2 - Date of Service November 01, 2018 - Glycemic Short BSG Results (Last 24 hours): 10/31/18 10/31/18 10/31/18 11:09 14:43 17:59 Glucose POC Glucose 251 H 125 H 163 H 10/31/18 10/31/18 11/01/18 18:17 20:57 07:12 Glucose 156 H POC Glucose 229 H 200 H Outpatient Anti-diabetic Regimen: * Lantus 20 units qPM * Novolog 12 units TIDM * A1c not ordered 2nd hx HD Risk Factors for Insulin Resistance: * Infection * Diet: Clear liquid changed to NPO briefly on 10/31 afternoon, now back to clear liquid since 10/31 @ dinner ASSESSMENT: * 73 yo F with T2DM admitted with sepsis/GPC bacteremia 2nd possible GI or SST infection * BSG's better controlled yesterday. Was elevated to 229 mg/dL at HS, but ? if patient consumed CHO when diet was ordered @ dinner time and CHO not covered. Novolog already ordered at relatively tight parameters for weight. Will slightly tighten today 2nd persistent post-prandial elevation to 219 mg/dL at lunch today * AM fasting BSG elevated to 200 mg/dL - will give one time dose of 10 units this AM and continue with scale in PM PLAN FOR INPATIENT GLYCEMIC CONTROL: * Basal insulin: Lantus 10 units x1 now then HS based on BSG * 10 units for BSG < 120 mg/dL * 15 units for BSG 120-180 mg/dL * 20 units for BSG > 180 mg/dL * Bolus insulin * NovoLog per scale ACHS or Q6hrs while NPO * Goal Range: Low 120 mg/dL - High 160 mg/dL * Correction Factor: 25 mg/dL/unit * Nutritional / Prandial insulin per carb ratio of 1 unit per 9 grams CHO consumed
[2018-11-01 09:53] LABS: INR 4.4 (0.9-1.1)
[2018-11-01] MEDS ORDERED: LOPERAMIDE HCL 2 MG CAP PO STA (11:38)
--- NOTE | 2018-11-01 11:47 | Hospitalist Progress Note ---
Date of Service November 01, 2018 Assessment & Plan (1) Gram-positive cocci bacteremia: Blood culture shows gram-positive bacteremia, Continue on Zosyn, ID eval requested Repeat blood culture ordered (2) Sepsis: Due to the above, Vitals improved, patient is afebrile Continue broad-spectrum antibiotic, Follow repeat blood cultures MULTIPLE AICD SHOCK AICD interrogation shows frequent ventricular fibrillation with multiple AICD shock on Friday prior to patient's admission Patient does not recall feeling pain or shock and chest Continue monitor telemetry Cardiology consult requested (3) Nausea, vomiting and diarrhea: Symptom has been ongoing for the past 4- 5 days Diarrhea worsened since admission, multiple liquids bowel movement overnight this morning, At present incontinent of liquid stool stool studies: Stool culture, C. difficile toxin assay Ordered Stool C. difficile negative We will do a repeat CT abdomen pelvis to rule out evidence of developing colitis given persistently elevated pro-calcitonin level (4) Abdominal pain: CT ABD/PELVIS: 1. Mild scattered bibasilar atelectatic and/or infiltrative change. 2. Trace pleural fluid right base. 3. Small amount of abdominal and pelvic ascites. 4. Several gallstones. 5. Nonobstructive bowel pattern. Lactic acid was 2.1 on admission, improved to 1.4 with IV fluid Pro-calcitonin 16, Gram-positive bacteremia noted CT abdomen pelvis repeat with IV contrast to rule out any evidence of (5) Ascites: (6) Elevated LFTs: Possibly secondary to sepsis? CT ABD/PELVIS: Small amount of abdominal and pelvic ascites -pt is on amiodarone-ordered to kept on hold -repeat LFTs in am: She has persistently elevated LFTs, normal alkaline phosphatase -U/S liver mild gallbladder wall thickening 4 mm no evidence of acute cholecystitis: Order to statin to be kept on hold Continue to follow daily LFT (7) Weakness: Reported generalized weakness Probable secondary sepsis/infection/dehydration for ongoing GI loss nausea vomiting diarrhea Treatment of sepsis as outlined above, PT OT evaluation when appropriate (8) Cough: Reported non-productive cough x 1 week Negative influenza PCR CXR:1. Mild interstitial pulmonary edema and trace bilateral pleural effusions. 2. Cardiomegaly. -pt will need HD (9) Elevated troponin: troponin: 0.124 Secondary to sepsis, in the setting of end-stage renal disease, poor renal clearance Denies chest pain or shortness of breath, chronic renal disease. Paced rhythm on EKG -resting echo ordered -Continue Coreg, statin discontinued for abnormal liver enzymes (10) End-stage renal disease (ESRD): On HD on , Sat Missed Dialysis 10/29/18 -nephrology consult, assistance with HD -Plan of care discussed with on-call crossing watchman, appreciate input Will have dialysis today without any volume/fluid removal: Sepsis, hypotension, dehydration recommend to minimize IV fluid resuscitation For sepsis, hypotension Patient is anuric-does not make any urine at all idiopathic cardiomyopathy with Poor ejection fraction, chest x-ray already shows evidence of pulmonary congestion Recommends IV pressor support if needed for hypotension to maintain organ perfusion in the setting of/sepsis (11) Idiopathic cardiomyopathy: S/P ICD Echo: 04/2018: EF: 40%, mild concentric LVH, moderate dilated RV, severely dilated R atrium, moderate tricupsid regurgitation (12) Paroxysmal atrial fibrillation: Continue on Coreg, Amiodarone kept on hold secondary to elevated liver enzymes On Coumadin, kept on hold INR more than 3 (13) Hx of supraventricular tachycardia: -Continue on Coreg, INR therapeutic, Coumadin kept on hold -monitor INR (14) Diabetes mellitus, type II: Insulin dependent A1c: 8.7 on 03/2018 -Lantus, Novolog sliding scale -glycemic pharmacy consult (15) HTN (hypertension): Became hypotensive Presents with sepsis, gram-positive bacteremia, ongoing GI loss, profuse watery diarrhea Order to hold torsemide, hydralazine Coreg continued with holding parameters (16) GERD (gastroesophageal reflux disease): -hold oral H2 martine and converted to IV for now with GI symptoms DVT Prophylaxis - INR therapeutic Full Code as per discussion with pt, however she reports would not want on prolonged life support if poor prognosis Follows with Dr Amezcua for routine care Continue to monitor in PCU Subjective Diet advanced to clears, developed nausea vomiting afterwards, continues to have diarrhea, no complaint abdomen pain, no fever chill Physical Exam Constitutional: + ill appearing Eyes: PERRL, conjunctivae normal, anicteric sclerae ENMT: Mouth: + oral mucosal abnormality (dry oral mucosa) Neck: trachea midline, no thyromegaly Respiratory: normal respiratory effort, lungs clear to auscultation Auscultation: no crackles, no rales and no wheezes Cardiovascular: Rate/Rhythm: regular rate and regular rhythm Gastrointestinal (Abdomen): Inspection/Auscultation: + abdomen distended and normal bowel sounds Percussion/Palpation: + abdomen tender (Mostly in central abdomen area,) and abdomen soft; no guarding and abdomen not rigid Neurologic: PERRL, EOMI, accommodation nl, no face palsy, no dysarthria Psychiatric: Orientation: alert Affect: + flat affect Results & Data Vital Signs (Past 12 Hours) Vital Signs Temp Pulse Pulse Resp BP Pulse Ox 11/01/18 10:23 36.5 C 60 18 117/64 99 11/01/18 07:00 36.4 C L 60 16 131/67 96 11/01/18 03:22 36.7 C 61 18 124/67 97 10/31/18 23:51 37.1 C 62 18 115/64 91 (1) Diabetes mellitus, type II Chronic kidney disease stage: on chronic dialysis Diabetes mellitus complication detail: with chronic kidney disease Diabetes mellitus complication status: with kidney complications Diabetes mellitus long term care administrator insulin use: unspecified long term care administrator insulin use status Qualified Code(s): E11.22 - 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 diabetic chronic kidney disease; N18.6 - End stage renal disease; Z99.2 - Dependence on renal dialysis (2) Ascites Ascites type: other type Qualified Code(s): R18.8 - Other ascites (3) GERD (gastroesophageal reflux disease) Esophagitis presence: esophagitis presence not specified Qualified Code(s): K21.9 - Gastro-esophageal reflux disease without esophagitis (4) Abdominal pain Abdominal location: periumbilical Qualified Code(s): R10.33 - Periumbilical pain (5) HTN (hypertension) Hypertension type: unspecified Qualified Code(s): I10 - Essential (primary) hypertension (6) Sepsis Sepsis type: Streptococcus, other Qualified Code(s): A40.8 - Other streptococcal sepsis
[2018-11-01 15:38] LABS: BUN Creatinine Ratio 6.8 (10-20); Calcium 8.1 mg/dl (8.5-10.1); Creatinine Clr Calc Pharmacy 9.2 ml/min; Est GFR (African American) 8.9; Est GFR (Non-African American) 7.7; Magnesium 2.5 mg/dl (1.8-2.4); Potassium 3.7 mmol/L (3.5-5.1)
[2018-11-01] MEDS ORDERED: PROMETHAZINE HCL 12.5 MG in SODIUM CHLORIDE 0.9% 50 ML IV PRN (18:22)
[2018-11-01] MEDS: INSULIN GLARGINE SOLOSTAR 100 UNITS/ML 3 ML PEN SQ SCH (21:37)
[2018-11-02 05:24] LABS: Appearance Urine Turbid (Clear); Bacteria Urine Automated Negative (Negative); Bilirubin Urine Negative (Negative); Blood Urine 3+ (Negative); Color Urine Dark Yellow; Epithelial Cell Urine Auto >30 /lpf (0-5); Glucose Urine UA Trace (Negative); Ketones Urine Trace (Negative); Leukocyte Esterase Urine 3+ (Negative); Nitrite Urine Positive (Negative); Protein Urine 2+ (Negative); Specific Gravity Urine 1.022 (1.000-1.030); Urobilinogen Urine Negative (Negative); WBC Urine Automated >30 /hpf (0-5)
[2018-11-02] MEDS: PIPERACILLIN/TAZOBACTAM 3.375 GM in DEXTROSE 5% 100 ML IV SCH (05:25)
[2018-11-02 05:34] LABS: RBC Urine Automated 0-4 /hpf (0-4)
[2018-11-02 07:56] LABS: Mean Corpuscular Hgb Conc 33.9 g/dL (32-36)
[2018-11-02 08:04] LABS: Hematocrit (blood only) 29.8 % (37-47); Hemoglobin 10.1 g/dL (12.0-16.0); Mean Corpuscular Volume 96.8 fL (80-100); RDW Coefficient of Variation 13.8 % (11.5-14.5); RDW Standard Deviation 48.3 fL (36.4-46.3); Red Blood Count 3.08 M/uL (4.2-5.4); White Blood Count 7.51 K/uL (4.8-10.8)
[2018-11-02 08:05] LABS: INR 3.2 (0.9-1.1); Prothrombin Time 29.9 Seconds (9.0-12.0)
[2018-11-02 08:22] LABS: Platelet Count 47 K/uL (130-400)
[2018-11-02] MEDS: CALCIUM ACETATE 667 MG CAP PO SCH ×3 (08:26→17:24)
[2018-11-02] MEDS: INSULIN ASPART 100 UNITS/ML 3 ML PEN SC SCH ×4 (08:26→21:37)
[2018-11-02] MEDS: CARVEDILOL 25 MG TAB PO SCH ×2 (08:26→21:35)
[2018-11-02 08:41] LABS: Albumin Level 3.1 gm/dl (3.4-5.0); BUN Creatinine Ratio 6.5 (10-20); Bilirubin Direct 0.4 mg/dl (0-0.2); Bilirubin,Total 1.1 mg/dl (0.2-1); Calcium 8.5 mg/dl (8.5-10.1); Est GFR (African American) 7.6; Est GFR (Non-African American) 6.5; Potassium 3.5 mmol/L (3.5-5.1)
--- NOTE | 2018-11-02 09:22 | Cardiology Consultation ---
Date of Consultation November 02, 2018 Assessment & Plan (1) Gram-positive cocci bacteremia: The patient has a previous history of endocarditis which was treated conservatively with several weeks of antibiotics in 2016. She is a very complex patient and I believe we should have infectious disease consultation. We will order a transthoracic echocardiogram to look for vegetations. (2) Idiopathic cardiomyopathy: Stable past several years. Previous heart catheterizations have shown normal coronaries. (3) End-stage renal disease (ESRD): Missed dialysis over the weekend due to her illness. Electrolytes are not unreasonable. (4) Biventricular ICD (implantable cardioverter-defibrillator) in place: Interrogation of her device indicates multiple therapies delivered on Friday and Friday when her illness started. She was not able to take her medications. She heard an alarm going off but does not recall being shocked. She did have multiple falls on Friday? Nothing significant on telemetry since admission. (5) Nausea, vomiting and diarrhea: CT of the abdomen indicates thickening and possibly colitis which may be an etiology of her nausea, vomiting and diarrhea. History of Present Illness Attending Physician: Kateryna Dougherty MD History of Present Illness This is a 73-year-old female with a very complex past medical history as outlined below. She has been receiving dialysis 3 days a week. She developed nausea, vomiting and diarrhea and on Friday missed her dialysis. She was not able to take her medications including amiodarone. She then was admitted to the hospital for further care. She has no new cardiac complaints today. Her ICD was interrogated this admission and according to the downloaded data, she has had 14 shock therapies delivered by the device starting on October 28 until she was admitted on the October 30. She has been asymptomatic, but did note that she had an alarm going off most of Friday before she was admitted. If she was getting shocked, she is not aware. She does recall that she fell a few times. She is currently on a dye expert and since admission she has had no significant ventricular tachycardia. On admission she had blood cultures drawn 2 out of 2 are growing strep. In the past she has had endocarditis which was treated with several weeks of antibiotics. I will have ID see her. Past Medical/Surgical History: 1. Idiopathic cardiomyopathy with NYHA Class III systolic congestive heart failure status post Bi-ventricular ICD implantation. EF 40-45%. 2. History of pericardial effusion status post window in March 2015, post procedure pleuritis, resolved. 3. Hospitalization in Aug 2015 with sepsis, gram-positive bacteremia, Aerococcus Viridans. Resting echocardiography performed on August 30, 2015 demonstrated a normal size left ventricle with moderate concentric LVH, mild to moderate global hypokinesis, apical wall motion abnormality possibly reflecting pacemaker activation, EF 40 to 45%. The aortic valve was described as mildly sclerotic without significant stenosis. The mitral valve leaflets were noted to be thickened but opened well. On September 04, 2015 she underwent transesophageal echocardiography by Dr. Donovan Aviles which revealed a long, thin, linear lesion attached to the pacemaker lead in the atrium that was described as highly mobile, consistent with vegetation. A right upper extremity PICC line was placed with patient discharged to complete 4 weeks of IV ceftriaxone followed by a course of oral amoxicillin until January. 4. Diagnostic cardiac catheterization in [place] ~ 2002 as well as January 2006 at [facility] both documented normal epicardial coronary arteries. 5. History of LV apical thrombus. 6. Supraventricular tachycardia and paroxysmal atrial fibrillation, prescribed amiodarone and chronic coumadin anticoagulation. 7. Paroxysmal VT/torsades in setting of urosepsis. 8. Hypertension, hypertensive heart disease 9. Multiple admission with hypertensive urgency 10. Type II diabetes mellitus 11. Anemia of chronic disease and iron deficieincy 12. Stage IV chronic renal insufficiency. 13. History of TIA. 14. Hyperlipidemia 15. Obstructive sleep apnea with prior sleep testing many years ago in [place] with refusal of CPAP therapy 16. [place] Palsy 17. Depression 18. Anxiety 19. Degenerative cervical disc 20. Slow transit constipation 21. Peripheral vascular disease 22. Hyperparathyroidism, secondary renal 23. Removal of appendix 24. Breast biopsy, fibroid 25. Total hysterectomy 26. Bilateral cataract extractions Allergies Allergy/AdvReac Type Severity Reaction Status Date / Time adhesive Allergy Unknown RXN TO Verified 10/30/18 14:04 ADHESIVE ON NITRO PATCH strawberry Allergy Unknown UNKNOWN Verified 10/30/18 14:04 DESIREE Inhibitors AdvReac Mild COUGH Verified 10/30/18 14:04 diphenhydramine AdvReac Mild VERY WEAK, Verified 10/30/18 14:04 CHF lisinopril AdvReac Mild COUGH Verified 10/30/18 14:04 nitroglycerin AdvReac Mild HEADACHE/NA Verified 10/30/18 14:04 USEA Sulfa (Sulfonamide AdvReac Mild "KNOCKS ME Verified 10/30/18 14:04 Antibiotics) OUT" amlodipine AdvReac Unknown RETAIN Verified 10/30/18 14:04 FLUID Home Medications Home Medications Medication Instructions Recorded Confirmed Type amiodarone 200 mg PO DAILY 10/30/18 10/30/18 History aspirin 81 mg PO DAILY 10/30/18 10/30/18 History atorvastatin 40 mg PO HS 10/30/18 10/30/18 History calcium acetate 2 cap PO UD 10/30/18 10/30/18 History carvedilol 50 mg PO BID 10/30/18 10/30/18 History hydralazine 25 mg PO BID 10/30/18 10/30/18 History insulin aspart U-100 [Novolog 0 unit SUBCUT UD 10/30/18 10/30/18 History Flexpen U-100 Insulin] insulin glargine [Lantus Solostar 20 units SUBCUT PM 10/30/18 10/30/18 History U-100 Insulin] ranitidine HCl 150 mg PO BID 10/30/18 10/30/18 History torsemide 20 mg PO DAILY 10/30/18 10/30/18 History warfarin 4 mg PO PM 10/30/18 10/30/18 History Patient History Medical History GERD (gastroesophageal reflux disease) (Chronic) Diabetes mellitus, type II (Chronic) Hx of supraventricular tachycardia (Chronic) Paroxysmal atrial fibrillation (Chronic) Idiopathic cardiomyopathy (Chronic) History of hysterectomy (Chronic) 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) Hypothermia (Resolved 07/24/13) Hypertensive urgency (Resolved) Bacteremia (Resolved) CHF NYHA class III (Chronic) Gram-positive bacteremia (Resolved) Depression (Chronic) Anxiety (Chronic) manager long term care (current) use of 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 (Chronic) Degenerative cervical disc (Chronic) Slow transit constipation (Chronic) PVD (peripheral vascular disease) (Chronic) Proteinuria (Chronic) Hyperparathyroidism (Chronic) Biventricular ICD (implantable cardioverter-defibrillator) in place (Chronic) H/O TIA (transient ischemic attack) and stroke (Chronic) ESRD (end stage renal disease) on dialysis (Chronic) Hip fracture, left (Resolved) AV graft malfunction (Resolved) Bleeding from dialysis shunt (Resolved) Cardiomegaly (Chronic 11/07/11) MARGOT (acute kidney injury) (Acute) CKD (chronic kidney disease) (Chronic) HTN (hypertension) (Chronic) Surgical History History of appendectomy (Chronic) S/P pericardial surgery (Chronic) H/O dilation and curettage (Chronic) Family History Other Coronary heart disease Diabetes Social History Preferred Language: Kinyarwanda Communication Ability: Effective Court Magistrate Required: No Beliefs That Will Affect Care: None Current Living Situation: Family Current Living Situation Comment: Cousin lives with her-Guillaume Other Information That Helps Us Care for You: Yes (see note) Feels Safe at Home: Yes Safety Concerns: Feels Safe At This Time Smoking Status: Never smoker Hx Alcohol Use: No Hx Substance Use: No Review of Systems Review of Systems: Review of Systems: See HPI for pertinent positives. All other 10 point review of systems are negative. Physical Exam Physical Exam: General: no acute distress and stated age Head: normocephalic, no masses, lesions, tenderness or abnormalities Eyes: conjunctiva are pink and non-injected, sclera clear Neck: supple, no adenopathy, no bruits, normal jugular venous pulse, no hepatojugular reflux Chest: normal shape and normal respiratory effort Lungs: clear to auscultation and percussion Cardiac Exam: - regular rate & rhythm, no murmurs gallops or rubs - normal S1, normal S2 Pulses: 2(+) throughout Abdomen: abdomen soft, non-tender, no abnormal masses and no hepatosplenomegaly Musculoskeletal: no gait disturbance, no joint inflammation, no deforming arthritis Extremities: no edema and no cyanosis Neuro: grossly normal exam Results & Data Vital Signs (Past 12 Hours) Vital Signs Temp Pulse Resp BP Pulse Ox 11/02/18 06:56 37.0 C 65 17 158/72 H 95 11/02/18 03:08 36.8 C 66 17 131/65 98 11/01/18 23:04 36.9 C 63 18 110/64 96 Laboratory Results Laboratory Results - last 24 hr 11/01/18 11/01/18 11/01/18 11:39 14:41 16:10 WBC RBC Hgb Hct MCV MCH MCHC RDW Std Deviation RDW Coeff of Jacobo Plt Count PT INR Sodium 131 L Potassium 3.7 Chloride 95 L Carbon Dioxide 25 Anion Gap 11.0 BUN 35 H Creatinine 5.15 H* D Est Cr Clr Drug Dosing 9.2 Est GFR ( Amer) 8.9 Est GFR (Non-Af Amer) 7.7 BUN/Creatinine Ratio 6.8 L Glucose 213 H POC Glucose 219 H 156 H Calcium 8.1 L Magnesium 2.5 H Total Bilirubin Direct Bilirubin AST ALT Alkaline Phosphatase Total Protein Albumin Procalcitonin Urine Color Urine Appearance Urine pH Ur Specific [place] Urine Protein Urine Glucose (UA) Urine Ketones Urine Blood Urine Nitrite Urine Bilirubin Urine Urobilinogen Ur Leukocyte Esterase Urine WBC (Auto) Urine RBC (Auto) U Hyaline Cast (Auto) U Epithel Cells (Auto) Urine Bacteria (Auto) Urine Yeast 11/01/18 11/02/18 11/02/18 20:39 05:00 07:02 WBC RBC Hgb Hct MCV MCH MCHC RDW Std Deviation RDW Coeff of Jacobo Plt Count PT INR Sodium Potassium Chloride Carbon Dioxide Anion Gap BUN Creatinine Est Cr Clr Drug Dosing Est GFR ( Amer) Est GFR (Non-Af Amer) BUN/Creatinine Ratio Glucose POC Glucose 140 H 113 H Calcium Magnesium Total Bilirubin Direct Bilirubin AST ALT Alkaline Phosphatase Total Protein Albumin Procalcitonin Urine Color Dark Yellow Urine Appearance Turbid H Urine pH 5.0 Ur Specific [place] 1.022 Urine Protein 2+ H Urine Glucose (UA) Trace H Urine Ketones Trace H Urine Blood 3+ H Urine Nitrite Positive H Urine Bilirubin Negative Urine Urobilinogen Negative Ur Leukocyte Esterase 3+ H Urine WBC (Auto) >30 H Urine RBC (Auto) 0-4 U Hyaline Cast (Auto) 1-5 U Epithel Cells (Auto) >30 H Urine Bacteria (Auto) Negative Urine Yeast Not Reportable 11/02/18 11/02/18 11/02/18 07:44 07:44 07:44 WBC 7.51 RBC 3.08 L Hgb 10.1 L Hct 29.8 L MCV 96.8 MCH 32.8 MCHC 33.9 RDW Std Deviation 48.3 H RDW Coeff of Jacobo 13.8 Plt Count 47 L PT 29.9 H INR 3.2 H Sodium 129 L Potassium 3.5 Chloride 93 L Carbon Dioxide 24 Anion Gap 12.0 H BUN 39 H Creatinine 5.91 H* D Est Cr Clr Drug Dosing 8.0 Est GFR ( Amer) 7.6 Est GFR (Non-Af Amer) 6.5 BUN/Creatinine Ratio 6.5 L Glucose 103 H POC Glucose Calcium 8.5 Magnesium Total Bilirubin 1.1 H Direct Bilirubin 0.4 H AST 59 H ALT 122 H Alkaline Phosphatase 92 Total Protein 6.0 L Albumin 3.1 L Procalcitonin Urine Color Urine Appearance Urine pH Ur Specific [place] Urine Protein Urine Glucose (UA) Urine Ketones Urine Blood Urine Nitrite Urine Bilirubin Urine Urobilinogen Ur Leukocyte Esterase Urine WBC (Auto) Urine RBC (Auto) U Hyaline Cast (Auto) U Epithel Cells (Auto) Urine Bacteria (Auto) Urine Yeast 11/02/18 07:44 WBC RBC Hgb Hct MCV MCH MCHC RDW Std Deviation RDW Coeff of Jacobo Plt Count PT INR Sodium Potassium Chloride Carbon Dioxide Anion Gap BUN Creatinine Est Cr Clr Drug Dosing Est GFR ( Amer) Est GFR (Non-Af Amer) BUN/Creatinine Ratio Glucose POC Glucose Calcium Magnesium Total Bilirubin Direct Bilirubin AST ALT Alkaline Phosphatase Total Protein Albumin Procalcitonin 6.74 H Urine Color Urine Appearance Urine pH Ur Specific [place] Urine Protein Urine Glucose (UA) Urine Ketones Urine Blood Urine Nitrite Urine Bilirubin Urine Urobilinogen Ur Leukocyte Esterase Urine WBC (Auto) Urine RBC (Auto) U Hyaline Cast (Auto) U Epithel Cells (Auto) Urine Bacteria (Auto) Urine Yeast Medications Administered Current Inpatient Medications Amiodarone HCl (Cordarone) 200 mg PO DAILY [facility] Stop: 11/30/18 08:59 Last Admin: 10/31/18 08:02 Dose: 200 mg Documented by: Calcium Acetate (Phoslo) 1,334 mg PO TIDM DANY Stop: 11/30/18 07:59 Last Admin: 11/02/18 08:26 Dose: 1,334 mg Documented by: Carvedilol (Coreg) 25 mg PO BID [facility] Stop: 11/30/18 08:59 Last Admin: 11/02/18 08:26 Dose: 25 mg Documented by: Dextrose (Dextrose 50%) 25 - 50 ml IV UD PRN; Protocol PRN Reason: Hypoglycemia Protocol Stop: 11/29/18 19:14 Glucagon (Glucagen) 1 mg IM UD PRN; Protocol PRN Reason: Hypoglycemia Protocol Stop: 11/29/18 19:14 Glucose (Glucose 40%) 15 - 30 gm PO UD PRN; Protocol PRN Reason: Hypoglycemia Protocol Stop: 11/29/18 19:14 Glucose (Dex4 Glucose) 4 - 8 tabs PO UD PRN; Protocol PRN Reason: Hypoglycemia Protocol Stop: 11/29/18 19:14 Hydralazine HCl (Apresoline) 25 mg PO BID DANY Stop: 11/29/18 20:59 Last Admin: 10/31/18 10:55 Dose: Not Given Documented by: Acetaminophen (Ofirmev) 1,000 mg in 100 mls @ 400 mls/hr IV Q8H PRN PRN Reason: Pain Stop: 11/30/18 09:44 Last Infusion: 10/31/18 22:23 Dose: Infused Documented by: Piperacillin Sod/Tazobactam (Sod 3.375 gm/ Dextrose) 115 mls @ 28.75 mls/hr IV Q12H [facility]; Protocol Stop: 11/10/18 17:59 Last Infusion: 11/02/18 09:30 Dose: Infused Documented by: Promethazine HCl 12.5 mg/ (Sodium Chloride) 50.5 mls @ 202 mls/hr IV Q6H PRN PRN Reason: Nausea And Vomiting Stop: 12/01/18 18:21 Last Infusion: 11/01/18 19:15 Dose: Infused Documented by: Insulin Aspart (Novolog Flexpen) 0 units SC ACHS [facility]; Protocol Stop: 11/30/18 21:44 Last Admin: 11/02/18 08:26 Dose: 2 units Documented by: Insulin Glargine (Lantus Solostar Pen) 0 units SQ QPM [facility]; Protocol Stop: 11/30/18 20:59 Last Admin: 11/01/18 21:37 Dose: 15 units Documented by: Ioversol (Optiray 320 100ml) 94 ml IV ONCE PRN PRN Reason: Interaction Checking Stop: 11/04/18 11:30 Last Admin: 10/31/18 11:31 Dose: 94 ml Documented by: Lidocaine/Prilocaine (Emla 2.5%) 1 ea EXT PRN PRN PRN Reason: DIALYSIS Stop: 11/29/18 18:20 Miscellaneous (Carbohydrates For Hypoglycemia) 15 - 30 gm PO UD PRN PRN Reason: Hypoglycemia Treatment Stop: 11/29/18 19:14 Miscellaneous Information (Consult Glycemic Management Pharmacy) 1 ea N/A UD PRN PRN Reason: Consult Stop: 11/29/18 18:52 Miscellaneous Information (Consult) 1 ea N/A UD PRN PRN Reason: Consult Stop: 11/30/18 10:02 Morphine Sulfate (Morphine Sulfate) 0.5 mg IV Q4H PRN PRN Reason: Pain Stop: 11/13/18 18:20 Ranitidine HCl (Zantac) 150 mg PO BID [facility] Stop: 12/01/18 20:59 Last Admin: 11/02/18 08:26 Dose: 150 mg Documented by: Torsemide (Demadex) 20 mg PO DAILY [facility] Stop: 11/30/18 08:59 Last Admin: 10/31/18 08:02 Dose: 20 mg Documented by: Warfarin Sodium (Coumadin) 4 mg PO DAILY@1600 [facility] Stop: 11/29/18 18:59 Last Admin: 10/30/18 21:41 Dose: 4 mg Documented by:
--- NOTE | 2018-11-02 10:28 | Nephrology Progress Note ---
Date of Service November 02, 2018 Assessment & Plan (1) End-stage renal disease (ESRD): Patient with ESRD on dialysis Friday. Her last dialysis was on Friday which was uneventful. We will dialyze her tomorrow for 4 hours to get UF of 3 L. (2) Gram-positive cocci bacteremia: Due to Streptococcus species. Patient is receiving Zosyn per primary team. Renally dose medications for GFR less than 20. (3) Anemia of renal disease: Patient with anemia due to renal disease. Hemoglobin of 9.8. We will continue Epogen with dialysis. (4) HTN (hypertension): Her blood pressure is above target today. Continue current regimen. Anticipate improvement with dialysis. Subjective Patient with ESRD seen in follow-up this morning. She reports mild shortness of breath. No lower extremity swelling. She had episodes of vomiting last night. No vomiting this morning. Her last dialysis was on Friday. Review of Systems Review of Systems: All systems reviewed & are unremarkable except as noted in HPI & below Physical Exam Physical Exam: General exam: Appears comfortable, no acute distress HEENT: Pupils are equal and reactive to light Neck: No JVD, neck is supple trachea is midline Respiratory system: Clear breath sounds bilaterally. Gastrointestinal: Abdomen is soft, non distended, non tender, bowel sounds are present CVS: Regular rate and rhythm. No murmurs, rubs or gallops Musculoskeletal: No joint or muscle tenderness Extremities: Non tender, no edema, peripheral pulses are present Neuro: Oriented, no tremors, no focal neurological deficits Skin: No rashes Access: Left forearm AV fistula with good bruit Results & Data Vital Signs (Past 12 Hours) Vital Signs Temp Pulse Pulse Resp BP Pulse Ox 11/02/18 09:32 61 11/02/18 06:56 37.0 C 65 17 158/72 H 95 11/02/18 03:08 36.8 C 66 17 131/65 98 11/01/18 23:04 36.9 C 63 18 110/64 96 Laboratory Results Hemoglobin 9.8 (1) HTN (hypertension) Hypertension type: unspecified Qualified Code(s): I10 - Essential (primary) hypertension
[2018-11-02] MEDS ORDERED: PERFLUTREN LIPID MICROSPHERE (DEFINITY) IV ONE (10:37)
--- NOTE | 2018-11-02 13:35 | Cardiology Progress Note ---
Date of Service November 02, 2018 Subjective full EP consult dictated-device reprogrammed to shorten VF detection from 30 to 24 intervals. She had appropriate multiple ICD shocks due to VF from electrolyte disturbances. She is bacteremic. Most likely will need a MANISH to get a better image of the device leads. her underlying rhythm is SB 30-40s so lets hope we do not need to extract the device as it is going to be significantly high risk and poor prognosis. Results & Data Vital Signs (Past 12 Hours) Vital Signs Temp Pulse Pulse Pulse Resp BP Pulse Ox 11/02/18 10:49 36.7 C 61 22 152/78 H 96 11/02/18 09:32 61 11/02/18 06:56 37.0 C 65 17 158/72 H 95 11/02/18 03:08 36.8 C 66 17 131/65 98
--- NOTE | 2018-11-02 14:43 | Hospitalist Progress Note ---
Date of Service November 02, 2018 Assessment & Plan (1) Sepsis: Sepsis secondary to gram-positive bacteremia Streptococcus bovis On Rocephin, ID eval appreciated VENTRICULAR FIBRILLATION STATUS POST AICD SHOCK Appreciate input from cardiology Possible arrhythmia secondary to electrolyte derangement, sepsis EP cardiology input appreciated AICD interrogation done Given gram-positive Streptococcus bacteremia Patient may need MANISH (2) Streptococcus bovis infection: Blood culture gram-positive bacteremia, Streptococcus bovis, pansensitive Started with Rocephin ID eval appreciated Highly suspicion for GI malignancy Using a GI consult (3) Nausea, vomiting and diarrhea: Symptoms mildly improved Orders for full liquid diet Stool C. difficile negative (4) Abdominal pain: Improved CT ABD/PELVIS: 1. Mild scattered bibasilar atelectatic and/or infiltrative change. 2. Trace pleural fluid right base. 3. Small amount of abdominal and pelvic ascites. 4. Several gallstones. 5. Nonobstructive bowel pattern. (5) Elevated LFTs: Possibly secondary to sepsis?-Improving CT ABD/PELVIS: Small amount of abdominal and pelvic ascites -pt is on amiodarone-ordered to kept on hold -repeat LFTs in am: She has persistently elevated LFTs, normal alkaline phosphatase -U/S liver mild gallbladder wall thickening 4 mm no evidence of acute cholecystitis: Order to statin to be kept on hold Continue to follow daily LFT (6) Weakness: Reported generalized weakness Probable secondary sepsis/infection/dehydration for ongoing GI loss nausea vomiting diarrhea PT OT evaluation ordered (7) Cough: Reported non-productive cough x 1 week Negative influenza PCR CXR:1. Mild interstitial pulmonary edema and trace bilateral pleural effusions. 2. Cardiomegaly. (8) Elevated troponin: troponin: 0.124 Secondary to sepsis, in the setting of end-stage renal disease, poor renal clearance Denies chest pain or shortness of breath, chronic renal disease. Paced rhythm on EKG -resting echo ordered -Continue Coreg, statin discontinued for abnormal liver enzymes (9) End-stage renal disease (ESRD): On HD on , Sat Missed Dialysis 10/29/18 -nephrology consult, assistance with HD (10) Idiopathic cardiomyopathy: S/P ICD Echo: 04/2018: EF: 40%, mild concentric LVH, moderate dilated RV, severely dilated R atrium, moderate tricupsid regurgitation (11) Paroxysmal atrial fibrillation: Continue on Coreg, Amiodarone kept on hold secondary to elevated liver enzymes For INR more than 3 (12) Hx of supraventricular tachycardia: -Continue on Coreg, (13) Diabetes mellitus, type II: Insulin dependent A1c: 8.7 on 03/2018 -Lantus, Novolog sliding scale -glycemic pharmacy consult (14) HTN (hypertension): BP stable, resumed outpatient meds (15) GERD (gastroesophageal reflux disease): -hold oral H2 martine and converted to IV for now with GI symptoms DVT Prophylaxis - INR therapeutic Full Code as per discussion with pt, however she reports would not want on prolonged life support if poor prognosis Follows with Dr Amezcua for routine care Continue to monitor in PCU Subjective Still having nausea vomiting, intermittent diarrhea Afebrile Blood culture growing Streptococcus bovis, highly suspicious for GI malignancy Gastroenterology team consulted Physical Exam Constitutional: + ill appearing; no acute distress Eyes: + anicteric sclerae ENMT: external ear and nose normal, oropharynx normal Neck: trachea midline, no thyromegaly Respiratory: normal respiratory effort, lungs clear to auscultation Cardiovascular: RRR, no murmur, no edema Gastrointestinal (Abdomen): Inspection/Auscultation: + abdomen distended Percussion/Palpation: abdomen soft; abdomen nontender Musculoskeletal: no cyanosis or clubbing, extremities motor strength 5/5 Skin: no rashes, warm and dry Neurologic: PERRL, EOMI, accommodation nl, no face palsy, no dysarthria Psychiatric: A+Ox3, euthymic affect Results & Data Vital Signs (Past 12 Hours) Vital Signs Temp Pulse Pulse Pulse Resp BP Pulse Ox 11/02/18 10:49 36.7 C 61 22 152/78 H 96 11/02/18 09:32 61 11/02/18 06:56 37.0 C 65 17 158/72 H 95 11/02/18 03:08 36.8 C 66 17 131/65 98 (1) Diabetes mellitus, type II Chronic kidney disease stage: on chronic dialysis Diabetes mellitus complication detail: with chronic kidney disease Diabetes mellitus complication status: with kidney complications Diabetes mellitus nursing home insulin use: unspecified intermediate card tender insulin use status Qualified Code(s): E11.22 - 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 diabetic chronic kidney disease; N18.6 - End stage renal disease; Z99.2 - Dependence on renal dialysis (2) GERD (gastroesophageal reflux disease) Esophagitis presence: esophagitis presence not specified Qualified Code(s): K21.9 - Gastro-esophageal reflux disease without esophagitis (3) Abdominal pain Abdominal location: periumbilical Qualified Code(s): R10.33 - Periumbilical pain (4) HTN (hypertension) Hypertension type: unspecified Qualified Code(s): I10 - Essential (primary) hypertension (5) Sepsis Sepsis type: Streptococcus, other Qualified Code(s): A40.8 - Other strept ococcal sepsis
--- NOTE | 2018-11-02 15:36 | Infectious Disease Progress Nt ---
Date of Service November 02, 2018 Assessment & Plan (1) Streptococcus bovis infection: Patient with strep bovis bacteremia/sepsis. Significant association with GI malignancies, would recommend GI consult. Will change patient to IV ceftriaxone. Will follow. Subjective Patient seen in follow-up for streptococcal bacteremia. Patient still complaining of diarrhea, slightly better. Still feels miserable. No fever. Blood culture identified as Streptococcus bovis. Review of Systems Review of Systems: All systems reviewed & are unremarkable except as noted in HPI & below Physical Exam Constitutional: WD/WN, vitals as above comfortable; no acute distress Eyes: PERRL, conjunctivae normal, anicteric sclerae ENMT: external ear and nose normal, oropharynx normal Neck: trachea midline, no thyromegaly neck nontender Respiratory: normal respiratory effort, lungs clear to auscultation normal percussion; no respiratory distress Cardiovascular: Rate/Rhythm: regular rate and regular rhythm Heart Sounds: normal S1 and normal S2; no gallop, no murmur and no cardiac rub Gastrointestinal (Abdomen): normal bowel sounds, soft, nontender, no hepatosplenomegaly Musculoskeletal: no cyanosis or clubbing, extremities motor strength 5/5 No spinal tenderness, no joint swelling or erythema Skin: no rashes, warm and dry no lesions Neurologic: moves all extremities and awake; no focal motor deficits Motor/Sensory: no sensory deficit Psychiatric: A+Ox3, euthymic affect Lymphatic: no cervical or axillary lymphadenopathy no inguinal lymphadenopathy Results & Data Vital Signs (Past 12 Hours) Vital Signs Temp Pulse Pulse Pulse Resp BP Pulse Ox 11/02/18 15:10 36.7 C 67 20 136/73 97 11/02/18 10:49 36.7 C 61 22 152/78 H 96 11/02/18 09:32 61 11/02/18 06:56 37.0 C 65 17 158/72 H 95 Laboratory Results Microbiology Short CBC 11/02/18 Range/Units 07:44 WBC 7.51 (4.8-10.8) K/uL Hgb 10.1 L (12.0-16.0) g/dL Hct 29.8 L (37-47) % Plt Count 47 L (130-400) K/uL BMP 11/01/18 11/02/18 14:41 07:44 Sodium 131 L 129 L Potassium 3.7 3.5 Chloride 95 L 93 L Carbon Dioxide 25 24 BUN 35 H 39 H Creatinine 5.15 H* D 5.91 H* D Glucose 213 H 103 H Calcium 8.1 L 8.5 Liver Function 11/02/18 Range/Units 07:44 Total Bilirubin 1.1 H (0.2-1) mg/dl Direct Bilirubin 0.4 H (0-0.2) mg/dl AST 59 H (15-37) U/L ALT 122 H (12-78) U/L Alkaline Phosphatase 92 (45-117) U/L Albumin 3.1 L (3.4-5.0) gm/dl Urine 11/02/18 Range/Units 05:00 Urine Color Dark Yellow Urine Appearance Turbid H (Clear) Urine pH 5.0 (4.5-7.5) Ur Specific [place] 1.022 (1.000-1.030) Urine Protein 2+ H (Negative) Urine Glucose (UA) Trace H (Negative) Diagnostic Findings Microbiology 10/30/18 20:43 Blood Blood Culture - Final Streptococcus bovis 10/30/18 20:34 Blood Blood Culture - Final Streptococcus bovis 10/31/18 06:40 Stool Shiga Toxin Test - Preliminary 10/31/18 06:40 Stool Stool Culture - Preliminary No Salmonella isolated to date, No Shigella isolated to date, No Campylobacter jejuni isolated to date. 10/31/18 12:26 Blood Blood Culture - Preliminary No growth to date. 10/31/18 12:23 Blood Blood Culture - Preliminary No growth to date.
--- NOTE | 2018-11-02 15:45 | Pharmacy Report ---
Pharmacy Glycemic Short Note 2 - Date of Service November 02, 2018 - Glycemic Short BSG Results (Last 24 hours): 11/01/18 11/01/18 11/02/18 16:10 20:39 07:02 Glucose POC Glucose 156 H 140 H 113 H 11/02/18 11/02/18 07:44 11:29 Glucose 103 H POC Glucose 132 H ASSESSMENT: 11-02: * Patient received total of 35 units of insulin yesterday, of which 25 units were basal * Fasting this am within range at 113 mg/dL - will continue scale for tonight as that is when patient takes insulin at home * BSGs w/in range - continue same CF/CR -: * 73 yo F with T2DM admitted with sepsis/GPC bacteremia 2nd possible GI or SST infection * BSG's better controlled yesterday. Was elevated to 229 mg/dL at HS, but ? if patient consumed CHO when diet was ordered @ dinner time and CHO not covered. Novolog already ordered at relatively tight parameters for weight. Will slightly tighten today 2nd persistent post-prandial elevation to 219 mg/dL at lunch today * AM fasting BSG elevated to 200 mg/dL - will give one time dose of 10 units this AM and continue with scale in PM PLAN FOR INPATIENT GLYCEMIC CONTROL: * Basal insulin: Lantus HS based on BSG * 15 units for BSG < 160 mg/dL * 20 units for BSG 160 - 200 mg/dL * 25 units for BSG > 200 mg/dL * Bolus insulin - no change * NovoLog per scale ACHS or Q6hrs while NPO * Goal Range: Low 120 mg/dL - High 160 mg/dL * Correction Factor: 25 mg/dL/unit * Nutritional / Prandial insulin per carb ratio of 1 unit per 9 grams CHO consumed
[2018-11-02] MEDS: cefTRIAXone SODIUM 2,000 MG in DEXTROSE 5% 50 ML IV SCH (17:25)
[2018-11-02] MEDS ORDERED: LORazepam 0.5 MG TAB PO PRN (17:50)
[2018-11-02] MEDS: INSULIN GLARGINE SOLOSTAR 100 UNITS/ML 3 ML PEN SQ SCH (21:35)
--- NOTE | 2018-11-03 01:53 | Consultation Report ---
DATE OF CONSULTATION: 11/02/2018 ELECTROPHYSIOLOGY CONSULT REFERRING PHYSICIAN: Dr. Silva. REASON FOR CONSULTATION: Multiple ICD shocks. HISTORY OF PRESENT ILLNESS: This is a 73-year-old female who was admitted to [facility] on 10/30/2018 secondary to persistent nausea, vomiting, diarrhea and multiple ICD shocks. The patient apparently was having 3 days of nausea, vomiting and diarrhea prior to presentation. She was supposedly also at dialysis on Friday, the day of admission and possibly passed out and sent to admission to the Emergency Room. Her lactic acid was elevated and she had a potassium of 3.3. Magnesium was not drawn. Her defibrillator was beeping and this prompted defibrillator check which showed multiple ICD shocks secondary to ventricular fibrillation, this prompted Electrophysiology consult. The patient reports that Friday and with all the diarrhea, nausea and vomiting she was "falling a lot" and maybe she did actually pass out. She did not recall feeling any of the ICD shocks. During the course of her hospitalization, she did grow out strep bovine bacteremia. She has a history of endocarditis in the remote past as well. She denies any chest pains. She has her usual shortness of breath. Denied any fevers or chills. She says her diarrhea, nausea and vomiting have improved, thinks her weight has been relatively stable and no significant change in her lower extremity edema. PAST MEDICAL HISTORY: Significant for nonischemic cardiomyopathy with ejection fraction of 40-45%, history of a biventricular ICD in January 2012 with a generator change in August of 2017, history of pericardial effusion, status post pericardial window in March of 2015. 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 MANISH on 09/04/2015 revealed a long thin linear lesion attached to the pacemaker lead in the right atrium, that was described as highly mobile consistent with possible vegitation. Her right upper extremity PICC line was also placed and she was discharged on 4 weeks of IV ceftriaxone following an oral course of amoxicillin for 4 months, chronic systolic heart failure, [place] Heart Association class 3, cardiac catheterization [facility] [place] revealed normal coronaries, peripheral vascular disease, diabetes, end-stage renal disease on dialysis Friday, and Saturdays, history of left ventricular apical thrombus, paroxysmal atrial fibrillation on Coumadin and amiodarone, paroxysmal ventricular tachycardia, hyperlipidemia, CVA, hypertension with multiple histories of admissions for hypertensive urgency, obstructive sleep apnea, noncompliant with CPAP, diabetes, anemia of chronic disease and iron deficiency anemia, Valderrama's palsy, hyperparathyroidism secondary to renal disease, depression, anxiety, degenerative cervical disc and slow transit constipation. PAST SURGICAL HISTORY: Biventricular ICD as well as generator change as listed above. Cardiac catheterization as listed above, appendectomy, cataracts, hip fracture with fixation, total abdominal hysterectomy with removal of tubes, a left upper extremity AV graft, biopsy of fibroid of the right and left breast. ALLERGIES: STRAWBERRIES, DESIREE INHIBITORS, DIPHENHYDRAMINE, SULFA ANTIBIOTICS, and NORVASC. HOME MEDICATIONS: Include carvedilol 25 mg twice a day, Lantus, Lipitor, Zoloft, Zantac, insulin, Coumadin, amiodarone 200 mg daily, Demadex, Flonase, hydralazine. REVIEW OF SYSTEMS: All other 10 point review of systems reviewed at this time and are essentially negative. See HPI for pertinent positives. FAMILY HISTORY: Positive for heart disease and diabetes as well as some cancer. SOCIAL HISTORY: She is , never smoked. PHYSICAL EXAMINATION: VITAL SIGNS: Blood pressure 152/78, heart rate 61, respirations 22, temperature 36.7 degrees Celsius, oxygen saturation 96% on room air. GENERAL: She is awake, alert, oriented x3 in no acute distress. She is walking around the room with physical therapy and a walker. HEENT: Normocephalic, atraumatic. Extraocular muscles are intact. Sclerae are nonicteric. Mucous membranes moist. NECK: Supple, no carotid bruits. No JVD. Carotid upstrokes normal. CARDIOVASCULAR: Normal S1, S2, regular rate and rhythm, no significant murmur appreciated. The ICD left pectoral area is intact. No threatened erosion. PULMONARY: Clear to auscultation bilaterally. No wheezes, rales or rhonchi. ABDOMEN: Positive bowel sounds, soft, nontender, nondistended. EXTREMITIES: No clubbing, cyanosis in bilateral fingers. No edema bilateral lower extremities, left arm AV graft is noted. Pulses, carotid, radial and dorsalis pedis are intact. NEUROLOGIC: Grossly intact. SKIN: Grossly intact. PERTINENT TESTING: A 12-lead ECG on admission, atrial and biventricular paced. Current Chemistry: Sodium 129, potassium 3.5, chloride 93, carbon dioxide 24, BUN 39, creatinine 5.91, glucose 103, calcium 8.5, total bilirubin 1.1, direct bilirubin 0.4, AST 59, ALT 122, alkaline phosphatase is 92, albumin 3.1, total protein 6. PT 29.9, INR 3.2. Hematology: WBC 7.51, hemoglobin 10.1, hematocrit 29.8, platelets 47. Chest x-ray improved vascular congestion. Blood cultures from 10/30/2018 are positive for strep bovis. Echo is still pending from today. ICD interrogation today performed independently reviewed by myself today. She has a [employer] device that was initially implanted, leads are from 01/13/2012 and the device gen changes from 08/19/2017, lead testing was all stable and within normal limits. Her presenting rhythm is A paced and BiV paced. Her underlying rhythm though is A sensed and V sensed in the 30s and 40s. In review of the arrhythmia log, she had very fine ventricular fibrillations and even some ventricular flutter with #6 ICD shocks on 10/28/2018 and 9 on 10/29/2018. Today, we did reprogram her device to shorten the NID detections for her ventricular fibrillation zone from 30 to 24. IMPRESSION: 1. Appropriate multiple ICD shocks secondary to ventricular fibrillation. 2. Nausea, vomiting, diarrhea prior to the ventricular fibrillation for days. 3. Bacteremic with strep bovine. 4. Underlying sinus bradycardia. 5. Thrombocytopenia. 6. Nonischemic cardiomyopathy, ejection fraction 40-45%, status post a biventricular ICD in January of 2012 with gen change in August 2017. 7. 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 8. Chronic systolic heart failure, [place] Heart Association class 3. 9. Peripheral vascular disease. 10. Diabetes. 11. End-stage renal disease, on dialysis. 12. Paroxysmal atrial fibrillation, on Coumadin and amiodarone. 13. Paroxysmal ventricular tachycardia. 14. Hyperlipidemia. 15. CVA. 16. Hypertension. 17. Obstructive sleep apnea, noncompliant with CPAP. 18. Diabetes. 19. Normal coronary cardiac catheterization in 2005. 20. Hyperparathyroidism secondary to renal disease. 21. Depression. 22. Anxiety. 23. Degenerative cervical disc. 24. Slow transit constipation. PLAN: Her device was interrogated today and reprogrammed as outlined above to shorten the detection interval for her ventricular fibrillation. There was also appropriate ICD shocks, most likely secondary to acute electrolyte disturbances between the nausea, vomiting, diarrhea for 3 days and her dialysis. The more concerning part is the bacteremia strep bovine in the hopes that this is not attached and causing infectious endocarditis because if we do need to remove the device being that it was implanted over 10 years ago, we would need laser extraction and the morbidity and mortality is high in addition to the fact that she has underlying significant bradycardia, so she would need probably some type of a temporary pacing wire and will be monitored in the hospital since she does have also history of ventricular tachycardia and ventricular fibrillation. Echocardiogram transthoracic done today results are still pending, probably will ultimately need a transesophageal echocardiogram if the repeat blood cultures remain positive; she does have a history of one in August 2015 that showed something on the right atrial lead, so we would need to definitely take close look at the pacing leads. Otherwise, continue to monitor on telemetry, continue the amiodarone. I would not do any other antiarrhythmic at this juncture as I think this has all prompted due to her acute illness and I do not think there is a need for any ischemic evaluation either at this juncture. ISSA
[2018-11-03 07:11] LABS: Prothrombin Time 28.7 Seconds (9.0-12.0)
[2018-11-03 07:22] LABS: Hematocrit (blood only) 29.3 % (37-47); Mean Corpuscular Hgb Conc 34.1 g/dL (32-36); Mean Corpuscular Volume 95.4 fL (80-100); Platelet Estimate Decreased (Normal); RDW Coefficient of Variation 13.8 % (11.5-14.5); RDW Standard Deviation 47.7 fL (36.4-46.3); Red Blood Count 3.07 M/uL (4.2-5.4); White Blood Count 7.67 K/uL (4.8-10.8)
[2018-11-03 07:35] LABS: Mean Platelet Volume 12.7 fL (7.4-10.4); Platelet Count 55 K/uL (130-400)
[2018-11-03] MEDS: INSULIN ASPART 100 UNITS/ML 3 ML PEN SC SCH ×4 (07:48→21:20)
[2018-11-03] MEDS: CALCIUM ACETATE 667 MG CAP PO SCH ×3 (07:49→16:58)
[2018-11-03 07:54] LABS: BUN Creatinine Ratio 6.6 (10-20); Bilirubin Direct 0.3 mg/dl (0-0.2); Bilirubin,Total 0.7 mg/dl (0.2-1); Calcium 8.4 mg/dl (8.5-10.1); Creatinine Clr Calc Pharmacy 7.1 ml/min; Est GFR (African American) 6.5; Est GFR (Non-African American) 5.6; Magnesium 2.6 mg/dl (1.8-2.4); Potassium 3.6 mmol/L (3.5-5.1); Total Protein 5.9 gm/dl (6.4-8.2)
[2018-11-03] MEDS ORDERED: SODIUM CHLORIDE 0.9% 1000ML 1,000 ML IV PRN (08:12)
--- NOTE | 2018-11-03 09:08 | Cardiology Progress Note ---
Date of Service November 03, 2018 Assessment & Plan (1) Gram-positive cocci bacteremia: The patient has a previous history of endocarditis which was treated conservatively with several weeks of antibiotics in 2016. Infectious disease and electrophysiology consults appreciated. I reviewed the transthoracic echocardiogram myself along with Dr. Aviles. The patient has heavily calcified valvular annulus formation which is not unexpected in a dialysis patient. Ultrasound whether by transthoracic or transesophageal will unfortunately provide limited information. I would recommend treating for endocarditis at this point with several weeks of antibiotics. She is a very complex patient and if the device requires removal, it will be a very high risk procedure. GI consult is pending, agree with infectious disease that GI malignancy should be excluded. (2) Idiopathic cardiomyopathy: Stable past several years. Previous heart catheterizations have shown normal coronaries. (3) End-stage renal disease (ESRD): Receiving dialysis today (4) Biventricular ICD (implantable cardioverter-defibrillator) in place: Electrophysiology consult appreciated. The patient did have multiple shocks related to ventricular fibrillation/flutter. (5) Nausea, vomiting and diarrhea: CT of the abdomen indicates thickening and possibly colitis which may be an etiology of her nausea, vomiting and diarrhea. GI consult pending. Patient had strep bovis bacteremia which is associated to GI malignancies. Subjective The patient is leaving for dialysis. No new complaints today. Telemetry over the past 24 hours has indicated only a paced rhythm. No other significant arrhythmias. [employer] notes appreciated. Review of Systems Review of Systems: All systems reviewed & are unremarkable except as noted in HPI & below No change in the review of systems from the H&P. Physical Exam Physical Exam: General: no acute distress and stated age Head: normocephalic, no masses, lesions, tenderness or abnormalities Eyes: conjunctiva are pink and non-injected, sclera clear Neck: supple, no adenopathy, no bruits, normal jugular venous pulse, no hepatojugular reflux Chest: normal shape and normal respiratory effort Lungs: clear to auscultation and percussion Cardiac Exam: - regular rate & rhythm, no murmurs gallops or rubs - normal S1, normal S2 Pulses: 2(+) throughout Abdomen: abdomen soft, non-tender, no abnormal masses and no hepatosplenomegaly Musculoskeletal: no gait disturbance, no joint inflammation, no deforming arthritis Extremities: no edema and no cyanosis Neuro: grossly normal exam Results & Data Vital Signs (Past 12 Hours) Vital Signs Temp Pulse Resp BP Pulse Ox 11/03/18 07:43 36.4 C L 74 23 112/72 96 11/03/18 07:02 37.0 C 68 20 148/75 H 97 11/03/18 03:34 37.3 C 60 20 156/71 H 97 11/02/18 23:11 37.0 C 65 19 157/74 H 96 Laboratory Results Current Inpatient Medications Amiodarone HCl (Cordarone) 200 mg PO DAILY DANY Stop: 11/30/18 08:59 Last Admin: 10/31/18 08:02 Dose: 200 mg Documented by: Calcium Acetate (Phoslo) 1,334 mg PO TIDM DANY Stop: 11/30/18 07:59 Last Admin: 11/03/18 07:49 Dose: 1,334 mg Documented by: Carvedilol (Coreg) 25 mg PO BID DANY Stop: 11/30/18 08:59 Last Admin: 11/02/18 21:35 Dose: 25 mg Documented by: Dextrose (Dextrose 50%) 25 - 50 ml IV UD PRN; Protocol PRN Reason: Hypoglycemia Protocol Stop: 11/29/18 19:14 Glucagon (Glucagen) 1 mg IM UD PRN; Protocol PRN Reason: Hypoglycemia Protocol Stop: 11/29/18 19:14 Glucose (Glucose 40%) 15 - 30 gm PO UD PRN; Protocol PRN Reason: Hypoglycemia Protocol Stop: 11/29/18 19:14 Glucose (Dex4 Glucose) 4 - 8 tabs PO UD PRN; Protocol PRN Reason: Hypoglycemia Protocol Stop: 11/29/18 19:14 Hydralazine HCl (Apresoline) 25 mg PO BID DANY Stop: 11/29/18 20:59 Last Admin: 10/31/18 10:55 Dose: Not Given Documented by: Acetaminophen (Ofirmev) 1,000 mg in 100 mls @ 400 mls/hr IV Q8H PRN PRN Reason: Pain Stop: 11/30/18 09:44 Last Infusion: 10/31/18 22:23 Dose: Infused Documented by: Promethazine HCl 12.5 mg/ (Sodium Chloride) 50.5 mls @ 202 mls/hr IV Q6H PRN PRN Reason: Nausea And Vomiting Stop: 12/01/18 18:21 Last Infusion: 11/01/18 19:15 Dose: Infused Documented by: Ceftriaxone Sodium 2,000 mg/ (Dextrose) 70 mls @ 100 mls/hr IV DAILY@1800 [facility]; Protocol Stop: 11/16/18 17:59 Last Infusion: 11/02/18 18:23 Dose: Infused Documented by: Sodium Chloride (Nss 1000ml) 1,000 mls @ 0 mls/hr IV .Q0M PRN PRN Reason: For Hemodialysis Use ONLY Stop: 11/03/18 14:11 Insulin Aspart (Novolog Flexpen) 0 units SC ACHS [facility]; Protocol Stop: 11/30/18 21:44 Last Admin: 11/03/18 07:48 Dose: 4 units Documented by: Insulin Glargine (Lantus Solostar Pen) 0 units SQ QPM [facility]; Protocol Stop: 11/30/18 20:59 Last Admin: 11/02/18 21:35 Dose: 15 units Documented by: Ioversol (Optiray 320 100ml) 94 ml IV ONCE PRN PRN Reason: Interaction Checking Stop: 11/04/18 11:30 Last Admin: 10/31/18 11:31 Dose: 94 ml Documented by: Lidocaine/Prilocaine (Emla 2.5%) 1 ea EXT PRN PRN PRN Reason: DIALYSIS Stop: 11/29/18 18:20 Lorazepam (Ativan) 0.5 mg PO Q8 PRN PRN Reason: Anxiety Stop: 12/02/18 17:49 Miscellaneous (Carbohydrates For Hypoglycemia) 15 - 30 gm PO UD PRN PRN Reason: Hypoglycemia Treatment Stop: 11/29/18 19:14 Miscellaneous Information (Consult Glycemic Management Pharmacy) 1 ea N/A UD PRN PRN Reason: Consult Stop: 11/29/18 18:52 Morphine Sulfate (Morphine Sulfate) 0.5 mg IV Q4H PRN PRN Reason: Pain Stop: 11/13/18 18:20 Ranitidine HCl (Zantac) 150 mg PO BID [facility] Stop: 12/01/18 20:59 Last Admin: 11/03/18 07:48 Dose: 150 mg Documented by: Torsemide (Demadex) 20 mg PO DAILY [facility] Stop: 11/30/18 08:59 Last Admin: 10/31/18 08:02 Dose: 20 mg Documented by: Warfarin Sodium (Coumadin) 4 mg PO DAILY@1600 [facility] Stop: 11/29/18 18:59 Last Admin: 10/30/18 21:41 Dose: 4 mg Documented by: Medications Administered Current Inpatient Medications Amiodarone HCl (Cordarone) 200 mg PO DAILY [facility] Stop: 11/30/18 08:59 Last Admin: 10/31/18 08:02 Dose: 200 mg Documented by: Calcium Acetate (Phoslo) 1,334 mg PO TIDM [facility]ANY Stop: 11/30/18 07:59 Last Admin: 11/03/18 07:49 Dose: 1,334 mg Documented by: Carvedilol (Coreg) 25 mg PO BID [facility] Stop: 11/30/18 08:59 Last Admin: 11/02/18 21:35 Dose: 25 mg Documented by: Dextrose (Dextrose 50%) 25 - 50 ml IV UD PRN; Protocol PRN Reason: Hypoglycemia Protocol Stop: 11/29/18 19:14 Glucagon (Glucagen) 1 mg IM UD PRN; Protocol PRN Reason: Hypoglycemia Protocol Stop: 11/29/18 19:14 Glucose (Glucose 40%) 15 - 30 gm PO UD PRN; Protocol PRN Reason: Hypoglycemia Protocol Stop: 11/29/18 19:14 Glucose (Dex4 Glucose) 4 - 8 tabs PO UD PRN; Protocol PRN Reason: Hypoglycemia Protocol Stop: 11/29/18 19:14 Hydralazine HCl (Apresoline) 25 mg PO BID [facility] Stop: 11/29/18 20:59 Last Admin: 10/31/18 10:55 Dose: Not Given Documented by: Acetaminophen (Ofirmev) 1,000 mg in 100 mls @ 400 mls/hr IV Q8H PRN PRN Reason: Pain Stop: 11/30/18 09:44 Last Infusion: 10/31/18 22:23 Dose: Infused Documented by: Promethazine HCl 12.5 mg/ (Sodium Chloride) 50.5 mls @ 202 mls/hr IV Q6H PRN PRN Reason: Nausea And Vomiting Stop: 12/01/18 18:21 Last Infusion: 11/01/18 19:15 Dose: Infused Documented by: Ceftriaxone Sodium 2,000 mg/ (Dextrose) 70 mls @ 100 mls/hr IV DAILY@1800 [facility]; Protocol Stop: 11/16/18 17:59 Last Infusion: 11/02/18 18:23 Dose: Infused Documented by: Sodium Chloride (Nss 1000ml) 1,000 mls @ 0 mls/hr IV .Q0M PRN PRN Reason: For Hemodialysis Use ONLY Stop: 11/03/18 14:11 Insulin Aspart (Novolog Flexpen) 0 units SC ACHS [facility]; Protocol Stop: 11/30/18 21:44 Last Admin: 11/03/18 07:48 Dose: 4 units Documented by: Insulin Glargine (Lantus Solostar Pen) 0 units SQ QPM [facility]; Protocol Stop: 11/30/18 20:59 Last Admin: 11/02/18 21:35 Dose: 15 units Documented by: Ioversol (Optiray 320 100ml) 94 ml IV ONCE PRN PRN Reason: Interaction Checking Stop: 11/04/18 11:30 Last Admin: 10/31/18 11:31 Dose: 94 ml Documented by: Lidocaine/Prilocaine (Emla 2.5%) 1 ea EXT PRN PRN PRN Reason: DIALYSIS Stop: 11/29/18 18:20 Lorazepam (Ativan) 0.5 mg PO Q8 PRN PRN Reason: Anxiety Stop: 12/02/18 17:49 Miscellaneous (Carbohydrates For Hypoglycemia) 15 - 30 gm PO UD PRN PRN Reason: Hypoglycemia Treatment Stop: 11/29/18 19:14 Miscellaneous Information (Consult Glycemic Management Pharmacy) 1 ea N/A UD PRN PRN Reason: Consult Stop: 11/29/18 18:52 Morphine Sulfate (Morphine Sulfate) 0.5 mg IV Q4H PRN PRN Reason: Pain Stop: 11/13/18 18:20 Ranitidine HCl (Zantac) 150 mg PO BID [facility] Stop: 12/01/18 20:59 Last Admin: 11/03/18 07:48 Dose: 150 mg Documented by: Torsemide (Demadex) 20 mg PO DAILY [facility] Stop: 11/30/18 08:59 Last Admin: 10/31/18 08:02 Dose: 20 mg Documented by: Warfarin Sodium (Coumadin) 4 mg PO DAILY@1600 [facility] Stop: 11/29/18 18:59 Last Admin: 10/30/18 21:41 Dose: 4 mg Documented by:
--- NOTE | 2018-11-03 10:48 | Gastrointestinal Consultation ---
Date of Consultation November 03, 2018 Assessment & Plan (1) Streptococcus bovis infection: 73 year old female w/ ESRD on dialysis, AFIB on coumadin and amiodarone, systolic HF s/p biventricular ICD who presents with N/V/D and sepsis, blood culture + strep bovine. She has gallstones, GB sludge, mild ascites on recent imaging however no formal diagnosis of liver disease. She has chronic thrombocytonpenia and elevated INR secondary to coumadin. Her LFTs were mildly elevated at admission but have been trending down. We did discuss association between blood cultures and GI tract malignancy. Endoscopic evaluation w/ EGD and colonoscopy was recommended. As of now, she is uncertain how she wish to proceed. - EGD and colonoscopy was recommended - She is unsure how she wish to proceed - Optimize clinical status prior to endoscopy - ? MANISH prior to endoscopic evaluation - Appreciate ongoing cardiology and ID consultation - Trend LFTs - OP Fibroscan - Would continue IV ABX Thank you for allowing us to participate in the care of this patient. Please call with any acute changes, questions or concerns. Please see addendum below with additional recommendation from my supervising physician. Present on Admission?: Yes History of Present Illness Reason for Consultation: + strep bovis Requesting Physician: Farhat Attending Physician: Kateryna Dougherty MD History of Present Illness 73 year old female with history of T2DM, dyslipidemia, afib on coumadin and amiodarone, systolic HF s/p ICD, ESRD on dialysis, MINAL, TIA history of pacer who presented to the ED w/ GI illness (N/V/D) found to have positive blood cultures (strep bovis) - GI is asked to evaluate to rule out malignancy. Pt was seen and evaluated, chart reviewed. She is in dialysis. Denies any complaints. Feels well today. No abd pain. No longer has nausea, vomiting. Does have looser stools but notes today stool was starting to form up. Prior was having dark, black stools but today endorses a brown BM. No fever, chills, CP, SOB. She notes she is overdue for colonoscopy. She had a colonoscopy scheduled in 2016 for this. Notes she prepped for the procedure however when she arrived, she was sent to the ED for hypotension and colonoscopy was not performed. stool occult: negative c.diff: negative stool culture: negative CT: No evidence of bowel obstruction. No evidence of free airMild hepatomegaly, low volume ascites, and heterogeneous hepatic enhancement. Clinical correlation in regards to hepatocellular disease is recommendedMild diffuse colonic wall thickening. Likely diagnostic considerations include a diffuse colitis, or bowel wall thickening secondary to hepatocellular disease. Minor bladder wall thickening. Correlation with urinalysis is recommended to exclude a cystitisSmall bilateral pleural effusions. Basilar opacities statistically atelectatic Liver US: Contracted gallbladder containing sludge/gravel. Mild wall thickening measuring 4 mmNo focal hepatic masses. 7 mm common bile duct Low volume ascites CT: Mild scattered bibasilar atelectatic and/or infiltrative change.Trace pleural fluid right base. Small amount of abdominal and pelvic ascites.Several gallstones. Nonobstructive bowel pattern. EGD 2007: Normal esophagus. Z-line regular, 40 cm from the incisors.Hiatus hernia. Normal stomach. Colonoscopy 2005: One 3 mm polyp in the proximal ascending colon. Resectedand retrieved.The exam was otherwise normal to the cecum. Allergies Allergy/AdvReac Type Severity Reaction Status Date / Time adhesive Allergy Unknown RXN TO Verified 10/30/18 14:04 ADHESIVE ON NITRO PATCH strawberry Allergy Unknown UNKNOWN Verified 10/30/18 14:04 DESIREE Inhibitors AdvReac Mild COUGH Verified 10/30/18 14:04 diphenhydramine AdvReac Mild VERY WEAK, Verified 10/30/18 14:04 CHF lisinopril AdvReac Mild COUGH Verified 10/30/18 14:04 nitroglycerin AdvReac Mild HEADACHE/NA Verified 10/30/18 14:04 USEA Sulfa (Sulfonamide AdvReac Mild "KNOCKS ME Verified 10/30/18 14:04 Antibiotics) OUT" amlodipine AdvReac Unknown RETAIN Verified 10/30/18 14:04 FLUID Home Medications Home Medications Medication Instructions Recorded Confirmed Type amiodarone 200 mg PO DAILY 10/30/18 10/30/18 History aspirin 81 mg PO DAILY 10/30/18 10/30/18 History atorvastatin 40 mg PO HS 10/30/18 10/30/18 History calcium acetate 2 cap PO UD 10/30/18 10/30/18 History carvedilol 50 mg PO BID 10/30/18 10/30/18 History hydralazine 25 mg PO BID 10/30/18 10/30/18 History insulin aspart U-100 [Novolog 0 unit SUBCUT UD 10/30/18 10/30/18 History Flexpen U-100 Insulin] insulin glargine [Lantus Solostar 20 units SUBCUT PM 10/30/18 10/30/18 History U-100 Insulin] ranitidine HCl 150 mg PO BID 10/30/18 10/30/18 History torsemide 20 mg PO DAILY 10/30/18 10/30/18 History warfarin 4 mg PO PM 10/30/18 10/30/18 History Patient History Medical History GERD (gastroesophageal reflux disease) (Chronic) Diabetes mellitus, type II (Chronic) Hx of supraventricular tachycardia (Chronic) Paroxysmal atrial fibrillation (Chronic) Idiopathic cardiomyopathy (Chronic) History of hysterectomy (Chronic) 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) Hypothermia (Resolved 07/24/13) Hypertensive urgency (Resolved) Bacteremia (Resolved) CHF NYHA class III (Chronic) Gram-positive bacteremia (Resolved) Depression (Chronic) Anxiety (Chronic) manager terminal (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) use of 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 (Chronic) Degenerative cervical disc (Chronic) Slow transit constipation (Chronic) PVD (peripheral vascular disease) (Chronic) Proteinuria (Chronic) Hyperparathyroidism (Chronic) Biventricular ICD (implantable cardioverter-defibrillator) in place (Chronic) H/O TIA (transient ischemic attack) and stroke (Chronic) ESRD (end stage renal disease) on dialysis (Chronic) Hip fracture, left (Resolved) AV graft malfunction (Resolved) Bleeding from dialysis shunt (Resolved) Cardiomegaly (Chronic 11/07/11) MARGOT (acute kidney injury) (Acute) CKD (chronic kidney disease) (Chronic) HTN (hypertension) (Chronic) Surgical History History of appendectomy (Chronic) S/P pericardial surgery (Chronic) H/O dilation and curettage (Chronic) Family History Other Coronary heart disease Diabetes Social History Preferred Language: Citizen Of [place] Communication Ability: Effective Photographic Supervisor Required: No Beliefs That Will Affect Care: None Current Living Situation: Family Current Living Situation Comment: Cousin lives with her-[place] Other Information That Helps Us Care for You: Yes (see note) Feels Safe at Home: Yes Safety Concerns: Feels Safe At This Time Smoking Status: Never smoker Hx Alcohol Use: No Hx Substance Use: No Review of Systems Constitutional: no fever, no body aches and no weakness Respiratory: no cough, no dyspnea, no snoring and no wheezing Cardiovascular: no chest pain, no radiating jaw, neck or arm pain, no dyspnea on exertion and no palpitations Gastrointestinal: + change in stools (diarrhea, dark stools); no abdominal pain, no early satiety, no vomiting, no coffee ground emesis, no pain with swallowing, no dysphagia, no excessive flatulence, no change in bowel habits, no diarrhea/loose stools, no blood in stools and no melena Physical Exam Constitutional: well developed, cooperative and comfortable; no acute distress Respiratory: normal respiratory effort, lungs clear to auscultation Cardiovascular: RRR, no murmur, no edema Gastrointestinal (Abdomen): normal bowel sounds, soft, nontender, no hepatosplenomegaly Skin: no rashes, warm and dry Results & Data Vital Signs (Past 12 Hours) Vital Signs Temp Pulse Pulse Resp BP BP Pulse Ox 11/03/18 10:40 62 191/86 H 11/03/18 10:20 61 182/83 H 11/03/18 10:00 60 174/88 H 11/03/18 09:40 60 178/83 H 11/03/18 09:20 60 161/84 H 11/03/18 08:51 36.5 C 66 11/03/18 07:43 36.4 C L 74 23 112/72 96 11/03/18 07:02 37.0 C 68 20 148/75 H 97 11/03/18 03:34 37.3 C 60 20 156/71 H 97 11/02/18 23:11 37.0 C 65 19 157/74 H 96 Laboratory Results 11/03/18 11/03/18 11/03/18 Range/Units 07:15 06:24 06:24 WBC 7.67 (4.8-10.8) K/uL RBC 3.07 L (4.2-5.4) M/uL Hgb 10.0 L (12.0-16.0) g/dL Hct 29.3 L (37-47) % MCV 95.4 (80-100) fL MCH 32.6 (25-34) pg MCHC 34.1 (32-36) g/dL RDW Std Deviation 47.7 H (36.4-46.3) fL RDW Coeff of Jacobo 13.8 (11.5-14.5) % Plt Count 55 L (130-400) K/uL MPV 12.7 H (7.4-10.4) fL Platelet Estimate Decreased (Normal) PT 28.7 H (9.0-12.0) Seconds INR 3.0 H (0.9-1.1) Sodium (136-145) mmol/L Potassium (3.5-5.1) mmol/L Chloride (98-107) mmol/L Carbon Dioxide (21-32) mmol/L Anion Gap (3-11) BUN (7-18) mg/dl Creatinine (0.6-1.2) mg/dl Est Cr Clr Drug Dosing ml/min Est GFR ( Amer) Est GFR (Non-Af Amer) BUN/Creatinine Ratio (10-20) Glucose (70-99) mg/dl POC Glucose 120 H (70-99) Calcium (8.5-10.1) mg/dl Magnesium (1.8-2.4) mg/dl Total Bilirubin (0.2-1) mg/dl Direct Bilirubin (0-0.2) mg/dl AST (15-37) U/L ALT (12-78) U/L Alkaline Phosphatase (45-117) U/L Total Protein (6.4-8.2) gm/dl Albumin (3.4-5.0) gm/dl 11/03/18 11/02/18 11/02/18 Range/Units 06:24 20:26 15:54 WBC (4.8-10.8) K/uL RBC (4.2-5.4) M/uL Hgb (12.0-16.0) g/dL Hct (37-47) % MCV (80-100) fL MCH (25-34) pg MCHC (32-36) g/dL RDW Std Deviation (36.4-46.3) fL RDW Coeff of Jacobo (11.5-14.5) % Plt Count (130-400) K/uL MPV (7.4-10.4) fL Platelet Estimate (Normal) PT (9.0-12.0) Seconds INR (0.9-1.1) Sodium 129 L (136-145) mmol/L Potassium 3.6 (3.5-5.1) mmol/L Chloride 92 L (98-107) mmol/L Carbon Dioxide 24 (21-32) mmol/L Anion Gap 13.0 H (3-11) BUN 46 H (7-18) mg/dl Creatinine 6.73 H* D (0.6-1.2) mg/dl Est Cr Clr Drug Dosing 7.1 ml/min Est GFR ( Amer) 6.5 Est GFR (Non-Af Amer) 5.6 BUN/Creatinine Ratio 6.6 L (10-20) Glucose 106 H (70-99) mg/dl POC Glucose 141 H 102 H (70-99) Calcium 8.4 L (8.5-10.1) mg/dl Magnesium 2.6 H (1.8-2.4) mg/dl Total Bilirubin 0.7 (0.2-1) mg/dl Direct Bilirubin 0.3 H (0-0.2) mg/dl AST 31 (15-37) U/L ALT 89 H (12-78) U/L Alkaline Phosphatase 89 (45-117) U/L Total Protein 5.9 L (6.4-8.2) gm/dl Albumin 3.0 L (3.4-5.0) gm/dl 11/02/18 Range/Units 11:29 WBC (4.8-10.8) K/uL RBC (4.2-5.4) M/uL Hgb (12.0-16.0) g/dL Hct (37-47) % MCV (80-100) fL MCH (25-34) pg MCHC (32-36) g/dL RDW Std Deviation (36.4-46.3) fL RDW Coeff of Jacobo (11.5-14.5) % Plt Count (130-400) K/uL MPV (7.4-10.4) fL Platelet Estimate (Normal) PT (9.0-12.0) Seconds INR (0.9-1.1) Sodium (136-145) mmol/L Potassium (3.5-5.1) mmol/L Chloride (98-107) mmol/L Carbon Dioxide (21-32) mmol/L Anion Gap (3-11) BUN (7-18) mg/dl Creatinine (0.6-1.2) mg/dl Est Cr Clr Drug Dosing ml/min Est GFR ( Amer) Est GFR (Non-Af Amer) BUN/Creatinine Ratio (10-20) Glucose (70-99) mg/dl POC Glucose 132 H (70-99) Calcium (8.5-10.1) mg/dl Magnesium (1.8-2.4) mg/dl Total Bilirubin (0.2-1) mg/dl Direct Bilirubin (0-0.2) mg/dl AST (15-37) U/L ALT (12-78) U/L Alkaline Phosphatase (45-117) U/L Total Protein (6.4-8.2) gm/dl Albumin (3.4-5.0) gm/dl
--- NOTE | 2018-11-03 16:48 | Nephrology Progress Note ---
Date of Service November 03, 2018 Assessment & Plan (1) End-stage renal disease (ESRD): Patient with ESRD on dialysis Friday. Her last dialysis was on Friday which was uneventful. She tolerated HD well today for 4 hours and net UF of 3.5 L. Next HD will be on . (2) Gram-positive cocci bacteremia: Due to Streptococcus bovis. Patient is receiving ceftriaxone per primary team and ID. Renally dose medications for GFR less than 20. (3) Anemia of renal disease: Patient with anemia due to renal disease. Hemoglobin of 10, no need for MARCELLA. (4) HTN (hypertension): Her blood pressure is above target today. Continue current regimen. BP meds were held pre HD, ok to resume after dialysis Subjective ESRD Patient seen and examined on dialysis. She feels well, denies any SOB. No leg swelling. Her BP is high. She continues antibiotics for strep bovis bacteremia Review of Systems Review of Systems: All systems reviewed & are unremarkable except as noted in HPI & below Physical Exam Physical Exam: General exam: Appears comfortable, no acute distress HEENT: Pupils are equal and reactive to light Neck: No JVD, neck is supple trachea is midline Respiratory system: Clear breath sounds bilaterally. Gastrointestinal: Abdomen is soft, non distended, non tender, bowel sounds are present CVS: Regular rate and rhythm. No murmurs, rubs or gallops Musculoskeletal: No joint or muscle tenderness Extremities: Non tender, no edema, peripheral pulses are present Neuro: Oriented, no tremors, no focal neurological deficits Skin: No rashes Access: AVF Results & Data Vital Signs (Past 12 Hours) Vital Signs Temp Pulse Pulse Pulse Resp BP BP 11/03/18 14:54 36.7 C 67 20 164/66 H 11/03/18 13:15 36.6 C 61 177/87 H 11/03/18 12:40 60 199/84 H 11/03/18 12:20 61 189/81 H 11/03/18 12:00 60 187/83 H 11/03/18 11:40 60 171/81 H 11/03/18 11:20 60 191/84 H 11/03/18 11:00 61 189/84 H 11/03/18 10:40 62 191/86 H 11/03/18 10:20 61 182/83 H 11/03/18 10:00 60 174/88 H 11/03/18 09:40 60 178/83 H 11/03/18 09:20 60 161/84 H 11/03/18 08:51 36.5 C 66 11/03/18 07:43 36.4 C L 74 23 112/72 11/03/18 07:02 37.0 C 68 20 148/75 H Pulse Ox 11/03/18 14:54 98 11/03/18 13:15 11/03/18 12:40 11/03/18 12:20 11/03/18 12:00 11/03/18 11:40 11/03/18 11:20 11/03/18 11:00 11/03/18 10:40 11/03/18 10:20 11/03/18 10:00 11/03/18 09:40 11/03/18 09:20 11/03/18 08:51 11/03/18 07:43 96 11/03/18 07:02 97 (1) HTN (hypertension) Hypertension type: unspecified Qualified Code(s): I10 - Essential (primary) hypertension
[2018-11-03] MEDS: cefTRIAXone SODIUM 2,000 MG in DEXTROSE 5% 50 ML IV SCH (17:01)
--- NOTE | 2018-11-03 17:35 | Infectious Disease Progress Nt ---
Date of Service November 03, 2018 Assessment & Plan (1) Streptococcus bovis infection: Patient with strep bovis bacteremia/sepsis. Significant association with GI malignancies, await decision regarding further GI evaluation. Continue present antibiotics. Will follow. Subjective Patient is here to follow-up for strep bovis bacteremia. Offers no new specific complaints. Agree with colonoscopy. Remains afebrile. Tolerating antibiotic without apparent difficulty. Review of Systems Review of Systems: All systems reviewed & are unremarkable except as noted in HPI & below Physical Exam Constitutional: WD/WN, vitals as above + ill appearing and comfortable; no acute distress Eyes: PERRL, conjunctivae normal, anicteric sclerae ENMT: external ear and nose normal, oropharynx normal Neck: trachea midline, no thyromegaly neck nontender Respiratory: normal respiratory effort, lungs clear to auscultation normal percussion; no respiratory distress and does not use accessory muscles Cardiovascular: Rate/Rhythm: regular rate and regular rhythm Heart Sounds: normal S1 and normal S2; no gallop, no murmur and no cardiac rub Vessels: normal peripheral pulses; no JVD Gastrointestinal (Abdomen): normal bowel sounds, soft, nontender, no hepatosplenomegaly Inspection/Auscultation: abdomen normal to inspection and + abdomen distended Percussion/Palpation: + abdomen tender; no hepatosplenomegaly and no abdominal mass Musculoskeletal: no cyanosis or clubbing, extremities motor strength 5/5 Spine: thoracic spine normal to inspection and lumbar spine normal to inspection; no cervical spinal tenderness Skin: no rashes, warm and dry normal turgor; no lesions Neurologic: patellar DTR's 2+ bilat, sensation intact moves all extremities and awake; no focal motor deficits Motor/Sensory: no sensory deficit Psychiatric: A+Ox3, euthymic affect Orientation: cooperative Lymphatic: no cervical or axillary lymphadenopathy no inguinal lymphadenopathy Results & Data Vital Signs (Past 12 Hours) Vital Signs Temp Pulse Pulse Pulse Resp BP BP 11/03/18 14:54 36.7 C 67 20 164/66 H 11/03/18 13:15 36.6 C 61 177/87 H 11/03/18 12:40 60 199/84 H 11/03/18 12:20 61 189/81 H 11/03/18 12:00 60 187/83 H 11/03/18 11:40 60 171/81 H 11/03/18 11:20 60 191/84 H 11/03/18 11:00 61 189/84 H 11/03/18 10:40 62 191/86 H 11/03/18 10:20 61 182/83 H 11/03/18 10:00 60 174/88 H 11/03/18 09:40 60 178/83 H 11/03/18 09:20 60 161/84 H 11/03/18 08:51 36.5 C 66 11/03/18 07:43 36.4 C L 74 23 112/72 11/03/18 07:02 37.0 C 68 20 148/75 H Pulse Ox 11/03/18 14:54 98 11/03/18 13:15 11/03/18 12:40 11/03/18 12:20 11/03/18 12:00 11/03/18 11:40 11/03/18 11:20 11/03/18 11:00 11/03/18 10:40 11/03/18 10:20 11/03/18 10:00 11/03/18 09:40 11/03/18 09:20 11/03/18 08:51 11/03/18 07:43 96 11/03/18 07:02 97 Laboratory Results Short CBC 11/03/18 Range/Units 06:24 WBC 7.67 (4.8-10.8) K/uL Hgb 10.0 L (12.0-16.0) g/dL Hct 29.3 L (37-47) % Plt Count 55 L (130-400) K/uL BMP 11/03/18 06:24 Sodium 129 L Potassium 3.6 Chloride 92 L Carbon Dioxide 24 BUN 46 H Creatinine 6.73 H* D Glucose 106 H Calcium 8.4 L Liver Function 11/03/18 Range/Units 06:24 Total Bilirubin 0.7 (0.2-1) mg/dl Direct Bilirubin 0.3 H (0-0.2) mg/dl AST 31 (15-37) U/L ALT 89 H (12-78) U/L Alkaline Phosphatase 89 (45-117) U/L Albumin 3.0 L (3.4-5.0) gm/dl Diagnostic Findings Microbiology 11/02/18 05:00 Urine,Clean Catch Urine Culture - Preliminary No growth - Less than 1,000 colonies/mL, Final report to follow. 10/31/18 06:40 Stool Shiga Toxin Test - Final 10/31/18 06:40 Stool Stool Culture - Final No Salmonella isolated, No Shigella isolated, No Campylobacter jejuni isolated. 10/30/18 20:43 Blood Blood Culture - Final Streptococcus bovis 10/30/18 20:34 Blood Blood Culture - Final Streptococcus bovis 10/31/18 12:26 Blood Blood Culture - Preliminary No growth to date. 10/31/18 12:23 Blood Blood Culture - Preliminary No growth to date.
[2018-11-03] MEDS: INSULIN GLARGINE SOLOSTAR 100 UNITS/ML 3 ML PEN SQ SCH (21:18)
[2018-11-03] MEDS: CARVEDILOL 25 MG TAB PO SCH (21:19)
[2018-11-03] MEDS: MoRPHine SULFATE 2 MG/ML CARP IV PRN (21:42)
[2018-11-03] MEDS ORDERED: Nursing to Pharmacy Communication ONE (21:52)
--- NOTE | 2018-11-03 22:09 | Hospitalist Progress Note ---
Date of Service November 03, 2018 Assessment & Plan (1) Gram-positive cocci bacteremia: Blood culture shows gram-positive bacteremia-Streptococcus Bovis -high likelihood of GI malignancy ID eval apprecaited Abx adjusted to IV rocephin GI eval requested pt is agreeable to inpatient EGD and Colonoscopy will need cardiology clearance for anesthesia need INR < 1.5 ordered to hold coumadin cardiology consult monitor showing paced rhythm , no other arrythmia noted AICD device interrogation showed multiple AICD shock per and on admission due to infection /dehydration /electrolyte derangement - arrythmia resolved after correction of dehydration /K /Mg replacement EP cardiology following pt is cont Coreg /resume amiodarone as per cardiology will need anesthesiology consult (2) Endocarditis: history of endocarditis which was treated conservatively with several weeks of antibiotics in 2016. admitted with sepsis /gram positive bacteremia /streptoccous bovis high likely dominguez of endocarditis appreciate input from cardiology transthoracic echocardiogram reviewed by Cardiology due to ESRD /chronic uremia noted to have heavily calcified valvular annulus transesophageal ECHO will provide limited information. cardiology recommends treating empirically for possible endocarditis with 4-6 weeks of antibiotics. on IV Rocephin pt will need PICC line placement removal of AICD wire due to infection will be high risk procedure medical management with prolong ABx course is recommended pt also need EGD /Colonoscopy for evaluation of possible GI malignancy (3) Sepsis: Due to the above,-streptoccus bovis bacetermia Vitals improved, patient is afebrile on Iv rocephine ID following MULTIPLE AICD SHOCK AICD interrogation shows frequent ventricular fibrillation with multiple AICD shock on Friday prior to patient's admission Patient does not recall feeling pain or shock and chest due to dehydration / appreciate input from EP cardiology Device setting adjusted at present no further arrythmnia noted paced rhythm on monitor (4) Nausea, vomiting and diarrhea: Symptoms mildly improved avanced Stool C. difficile negative (5) Abdominal pain: Improved CT ABD/PELVIS: 1. Mild scattered bibasilar atelectatic and/or infiltrative change. 2. Trace pleural fluid right base. 3. Small amount of abdominal and pelvic ascites. 4. Several gallstones. 5. Nonobstructive bowel pattern. (6) Ascites: (7) Elevated LFTs: Possibly secondary to sepsis?-Improving CT ABD/PELVIS: Small amount of abdominal and pelvic ascites -pt is on amiodarone-ordered to kept on hold -repeat LFTs in am: She has persistently elevated LFTs, normal alkaline phosphatase -U/S liver mild gallbladder wall thickening 4 mm no evidence of acute cholecystitis: Order to statin to be kept on hold Continue to follow daily LFT (8) Weakness: Reported generalized weakness Probable secondary sepsis/infection/dehydration for ongoing GI loss nausea vomiting diarrhea PT OT evaluation ordered (9) Cough: Reported non-productive cough x 1 week Negative influenza PCR CXR:1. Mild interstitial pulmonary edema and trace bilateral pleural effusions. 2. Cardiomegaly. (10) Elevated troponin: troponin: 0.124 Secondary to sepsis, in the setting of end-stage renal disease, poor renal clearance Denies chest pain or shortness of breath, chronic renal disease. Paced rhythm on EKG -Continue Coreg, statin discontinued for abnormal liver enzymes (11) End-stage renal disease (ESRD): On HD on , Sat Missed Dialysis 10/29/18 -nephrology consult, assistance with HD (12) Idiopathic cardiomyopathy: S/P ICD Echo: 04/2018: EF: 40%, mild concentric LVH, moderate dilated RV, severely dilated R atrium, moderate tricupsid regurgitation (13) Paroxysmal atrial fibrillation: Continue on Coreg, Amiodarone kept on hold secondary to elevated liver enzymes (14) Hx of supraventricular tachycardia: -Continue on Coreg, (15) Diabetes mellitus, type II: Insulin dependent A1c: 8.7 on 03/2018 -Lantus, Novolog sliding scale -glycemic pharmacy consult (16) HTN (hypertension): BP stable, resumed outpatient meds (17) GERD (gastroesophageal reflux disease): -hold oral H2 martine and converted to IV for now with GI symptoms DVT Prophylaxis - INR therapeutic Full Code as per discussion with pt, however she reports would not want on prolonged life support if poor prognosis Follows with Dr Amezcua for routine care Continue to monitor in PCU Subjective s/p dialysis today . appetite remains poor no complain of nausea or vomiting no fever or chills Physical Exam Constitutional: + ill appearing; no acute distress Eyes: PERRL, conjunctivae normal, anicteric sclerae + anicteric sclerae ENMT: external ear and nose normal, oropharynx normal Mouth: + oral mucosal abnormality (dry oral mucosa) Neck: trachea midline, no thyromegaly Respiratory: normal respiratory effort, lungs clear to auscultation Auscultation: no crackles, no rales and no wheezes Cardiovascular: RRR, no murmur, no edema Rate/Rhythm: regular rate and regular rhythm Gastrointestinal (Abdomen): Inspection/Auscultation: + abdomen distended and normal bowel sounds Percussion/Palpation: abdomen soft; abdomen nontender, no guarding and abdomen not rigid Musculoskeletal: no cyanosis or clubbing, extremities motor strength 5/5 Skin: no rashes, warm and dry Neurologic: PERRL, EOMI, accommodation nl, no face palsy, no dysarthria Psychiatric: A+Ox3, euthymic affect Orientation: alert Affect: + flat affect Results & Data Vital Signs (Past 12 Hours) Vital Signs Temp Pulse Pulse Pulse Resp BP BP 11/03/18 19:32 36.4 C L 60 18 166/72 H 11/03/18 14:54 36.7 C 67 20 164/66 H 11/03/18 13:15 36.6 C 61 177/87 H 11/03/18 12:40 60 199/84 H 11/03/18 12:20 61 189/81 H 11/03/18 12:00 60 187/83 H 11/03/18 11:40 60 171/81 H 11/03/18 11:20 60 191/84 H 11/03/18 11:00 61 189/84 H 11/03/18 10:40 62 191/86 H 11/03/18 10:20 61 182/83 H Pulse Ox 11/03/18 19:32 96 11/03/18 14:54 98 11/03/18 13:15 11/03/18 12:40 11/03/18 12:20 11/03/18 12:00 11/03/18 11:40 11/03/18 11:20 11/03/18 11:00 11/03/18 10:40 11/03/18 10:20 (1) Sepsis Sepsis type: Streptococcus, other Qualified Code(s): A40.8 - Other strep tococcal sepsis (2) Abdominal pain Abdominal location: periumbilical Qualified Code(s): R10.33 - Periumbilical pain (3) Ascites Ascites type: other type Qualified Code(s): R18.8 - Other ascites (4) Diabetes mellitus, type II Diabetes mellitus 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 insulin use: unspecified 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 insulin use status Diabetes mellitus complication status: with kidney complications Diabetes mellitus complication detail: with chronic kidney disease Chronic kidney disease stage: on chronic dialysis Qualified Code(s): E11.22 - 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 diabetic chronic kidney disease; N18.6 - End stage renal disease; Z99.2 - Dependence on renal dialysis (5) HTN (hypertension) Hypertension type: unspecified Qualified Code(s): I10 - Essential (primary) hypertension (6) GERD (gastroesophageal reflux disease) Esophagitis presence: esophagitis presence not specified Qualified Code(s): K21.9 - Gastro-esophageal reflux disease without esophagitis (7) Endocarditis Endocarditis type: infective Infective endocarditis organism: bacterial Chronicity: unspecified Qualified Code(s): I33.0 - Acute and subacute infective endocarditis
[2018-11-04 07:39] LABS: INR 2.2 (0.9-1.1); Prothrombin Time 21.5 Seconds (9.0-12.0)
[2018-11-04 07:56] LABS: Hemoglobin 10.2 g/dL (12.0-16.0); Mean Corpuscular Volume 95.8 fL (80-100); Mean Platelet Volume 12.1 fL (7.4-10.4); Platelet Count 70 K/uL (130-400); RDW Coefficient of Variation 14.2 % (11.5-14.5); RDW Standard Deviation 48.7 fL (36.4-46.3); Red Blood Count 3.13 M/uL (4.2-5.4); White Blood Count 6.56 K/uL (4.8-10.8)
[2018-11-04 07:57] LABS: Platelet Estimate Decreased (Normal)
[2018-11-04 08:19] LABS: BUN Creatinine Ratio 4.9 (10-20); Bilirubin Direct 0.3 mg/dl (0-0.2); Bilirubin,Total 0.7 mg/dl (0.2-1); Calcium 8.6 mg/dl (8.5-10.1); Creatinine Clr Calc Pharmacy 9.4 ml/min; Est GFR (African American) 9.2; Magnesium 2.4 mg/dl (1.8-2.4); Potassium 3.9 mmol/L (3.5-5.1); Total Protein 5.9 gm/dl (6.4-8.2)
[2018-11-04] MEDS: INSULIN ASPART 100 UNITS/ML 3 ML PEN SC SCH ×4 (08:32→20:24)
[2018-11-04] MEDS: CALCIUM ACETATE 667 MG CAP PO SCH ×3 (08:33→17:51)
[2018-11-04] MEDS: CARVEDILOL 25 MG TAB PO SCH ×2 (08:58→20:32)
[2018-11-04] MEDS: TORSEMIDE 10 MG TAB PO SCH (08:59)
--- NOTE | 2018-11-04 09:21 | Cardiology Progress Note ---
Date of Service November 04, 2018 Assessment & Plan (1) Gram-positive cocci bacteremia: The patient has a previous history of endocarditis which was treated conservatively with several weeks of antibiotics in 2016. Infectious disease and electrophysiology consults appreciated. I reviewed the transthoracic echocardiogram myself along with Dr. Aviles. The patient has heavily calcified valvular annulus formation which is not unexpected in a dialysis patient. Ultrasound whether by transthoracic or transesophageal will unfortunately provide limited information. I would recommend treating for endocarditis at this point with several weeks of antibiotics. She is a very complex patient and if the device requires removal, it will be a very high risk procedure. Strep bovis is associated to GI malignancies. GI consult is appreciated. According to the Mil criteria for preoperative risk assessment she has an 11% risk of having a cardiovascular event, most likely on the basis of developing pulmonary edema due to her history of heart failure. The Masy criteria would estimate her probable risk at 3.44% for perioperative myocardial infarction or cardiac arrest. She is currently optimally medically managed and will receive her usual dialysis on with the planned colonoscopy on Friday. Since her hospital admission, she has had no significant arrhythmias and currently remains in a paced rhythm. Holding warfarin in anticipation of procedure. (2) Idiopathic cardiomyopathy: Stable past several years. Previous heart catheterizations have shown normal coronaries. (3) End-stage renal disease (ESRD): Receiving dialysis (4) Biventricular ICD (implantable cardioverter-defibrillator) in place: Electrophysiology consult appreciated. The patient did have multiple shocks related to ventricular fibrillation/flutter. (5) Nausea, vomiting and diarrhea: CT of the abdomen indicates thickening and possibly colitis which may be an etiology of her nausea, vomiting and diarrhea. Patient had strep bovis bacteremia which is associated to GI malignancies. Subjective She feels much improved today and is sitting in a chair. She has no new cardiac complaints. Review of her telemetry over the past 24 hours indicates no significant arrhythmias. All consultants evaluations are appreciated. Review of Systems Review of Systems: All systems reviewed & are unremarkable except as noted in HPI & below Nothing significant to add overnight. Physical Exam Physical Exam: General: no acute distress and stated age Head: normocephalic, no masses, lesions, tenderness or abnormalities Eyes: conjunctiva are pink and non-injected, sclera clear Neck: supple, no adenopathy, no bruits, normal jugular venous pulse, no hepatojugular reflux Chest: normal shape and normal respiratory effort Lungs: clear to auscultation and percussion Cardiac Exam: - regular rate & rhythm, no murmurs gallops or rubs - normal S1, normal S2 Pulses: 2(+) throughout Abdomen: abdomen soft, non-tender, no abnormal masses and no hepatosplenomegaly Musculoskeletal: no gait disturbance, no joint inflammation, no deforming arthritis Extremities: no edema and no cyanosis Neuro: grossly normal exam Results & Data Vital Signs (Past 12 Hours) Vital Signs Temp Pulse Pulse Resp BP Pulse Ox 11/04/18 07:04 36.8 C 60 18 167/65 H 97 11/04/18 04:13 37.1 C 64 18 169/73 H 94 11/03/18 23:21 37.4 C 60 18 154/69 H 92 Laboratory Results Laboratory Results - last 24 hr 11/03/18 11/03/18 11/03/18 13:45 16:06 20:23 WBC RBC Hgb Hct MCV MCH MCHC RDW Std Deviation RDW Coeff of Jacobo Plt Count MPV Platelet Estimate PT INR Sodium Potassium Chloride Carbon Dioxide Anion Gap BUN Creatinine Est Cr Clr Drug Dosing Est GFR ( Amer) Est GFR (Non-Af Amer) BUN/Creatinine Ratio Glucose POC Glucose 101 H 150 H 79 Calcium Magnesium Total Bilirubin Direct Bilirubin AST ALT Alkaline Phosphatase Total Protein Albumin 11/04/18 11/04/18 11/04/18 07:11 07:11 07:11 WBC 6.56 RBC 3.13 L Hgb 10.2 L Hct 30.0 L MCV 95.8 MCH 32.6 MCHC 34.0 RDW Std Deviation 48.7 H RDW Coeff of Jacobo 14.2 Plt Count 70 L MPV 12.1 H Platelet Estimate Decreased PT 21.5 H INR 2.2 H Sodium 131 L Potassium 3.9 Chloride 96 L Carbon Dioxide 25 Anion Gap 10.0 BUN 25 H Creatinine 5.01 H* D Est Cr Clr Drug Dosing 9.4 Est GFR ( Amer) 9.2 Est GFR (Non-Af Amer) 8.0 BUN/Creatinine Ratio 4.9 L Glucose 122 H POC Glucose Calcium 8.6 Magnesium 2.4 Total Bilirubin 0.7 Direct Bilirubin 0.3 H AST 21 ALT 70 Alkaline Phosphatase 94 Total Protein 5.9 L Albumin 3.0 L 11/04/18 07:20 WBC RBC Hgb Hct MCV MCH MCHC RDW Std Deviation RDW Coeff of Jacobo Plt Count MPV Platelet Estimate PT INR Sodium Potassium Chloride Carbon Dioxide Anion Gap BUN Creatinine Est Cr Clr Drug Dosing Est GFR ( Amer) Est GFR (Non-Af Amer) BUN/Creatinine Ratio Glucose POC Glucose 124 H Calcium Magnesium Total Bilirubin Direct Bilirubin AST ALT Alkaline Phosphatase Total Protein Albumin Medications Administered Current Inpatient Medications Amiodarone HCl (Cordarone) 200 mg PO DAILY DANY Stop: 11/30/18 08:59 Last Admin: 10/31/18 08:02 Dose: 200 mg Documented by: Calcium Acetate (Phoslo) 1,334 mg PO TIDM DANY Stop: 11/30/18 07:59 Last Admin: 11/04/18 08:33 Dose: 1,334 mg Documented by: Carvedilol (Coreg) 25 mg PO BID DANY Stop: 11/30/18 08:59 Last Admin: 11/04/18 08:58 Dose: 25 mg Documented by: Dextrose (Dextrose 50%) 25 - 50 ml IV UD PRN; Protocol PRN Reason: Hypoglycemia Protocol Stop: 11/29/18 19:14 Glucagon (Glucagen) 1 mg IM UD PRN; Protocol PRN Reason: Hypoglycemia Protocol Stop: 11/29/18 19:14 Glucose (Glucose 40%) 15 - 30 gm PO UD PRN; Protocol PRN Reason: Hypoglycemia Protocol Stop: 11/29/18 19:14 Glucose (Dex4 Glucose) 4 - 8 tabs PO UD PRN; Protocol PRN Reason: Hypoglycemia Protocol Stop: 11/29/18 19:14 Hydralazine HCl (Apresoline) 25 mg PO BID DANY Stop: 11/29/18 20:59 Last Admin: 11/04/18 08:58 Dose: 25 mg Documented by: Acetaminophen (Ofirmev) 1,000 mg in 100 mls @ 400 mls/hr IV Q8H PRN PRN Reason: Pain Stop: 11/30/18 09:44 Last Infusion: 10/31/18 22:23 Dose: Infused Documented by: Promethazine HCl 12.5 mg/ (Sodium Chloride) 50.5 mls @ 202 mls/hr IV Q6H PRN PRN Reason: Nausea And Vomiting Stop: 12/01/18 18:21 Last Infusion: 11/01/18 19:15 Dose: Infused Documented by: Ceftriaxone Sodium 2,000 mg/ (Dextrose) 70 mls @ 100 mls/hr IV DAILY@1800 [facility]; Protocol Stop: 11/16/18 17:59 Last Infusion: 11/03/18 17:43 Dose: Infused Documented by: Insulin Aspart (Novolog Flexpen) 0 units SC ACHS [facility]; Protocol Stop: 11/30/18 21:44 Last Admin: 11/04/18 08:32 Dose: 2 units Documented by: Insulin Glargine (Lantus Solostar Pen) 0 units SQ QPM [facility]; Protocol Stop: 11/30/18 20:59 Last Admin: 11/03/18 21:18 Dose: Not Given Documented by: Ioversol (Optiray 320 100ml) 94 ml IV ONCE PRN PRN Reason: Interaction Checking Stop: 11/04/18 11:30 Last Admin: 10/31/18 11:31 Dose: 94 ml Documented by: Lidocaine/Prilocaine (Emla 2.5%) 1 ea EXT PRN PRN PRN Reason: DIALYSIS Stop: 11/29/18 18:20 Lorazepam (Ativan) 0.5 mg PO Q8 PRN PRN Reason: Anxiety Stop: 12/02/18 17:49 Miscellaneous (Carbohydrates For Hypoglycemia) 15 - 30 gm PO UD PRN PRN Reason: Hypoglycemia Treatment Stop: 11/29/18 19:14 Miscellaneous Information (Consult Glycemic Management Pharmacy) 1 ea N/A UD PRN PRN Reason: Consult Stop: 11/29/18 18:52 Morphine Sulfate (Morphine Sulfate) 0.5 mg IV Q4H PRN PRN Reason: Pain Stop: 11/13/18 18:20 Last Admin: 11/03/18 21:42 Dose: 0.5 mg Documented by: Ranitidine HCl (Zantac) 150 mg PO BID [facility] Stop: 12/01/18 20:59 Last Admin: 11/04/18 08:33 Dose: 150 mg Documented by: Torsemide (Demadex) 20 mg PO DAILY [facility] Stop: 11/30/18 08:59 Last Admin: 11/04/18 08:59 Dose: 20 mg Documented by: Warfarin Sodium (Coumadin) 4 mg PO DAILY@1600 [facility] Stop: 11/29/18 18:59 Last Admin: 10/30/18 21:41 Dose: 4 mg Documented by:
--- NOTE | 2018-11-04 10:21 | Nephrology Progress Note ---
Date of Service November 04, 2018 Assessment & Plan (1) End-stage renal disease (ESRD): Patient with ESRD on dialysis Friday. She tolerated HD well yesterday for 4 hours and net UF of 3.5 L. Next HD will be on thr. (2) Gram-positive cocci bacteremia: Due to Streptococcus bovis. Patient is receiving ceftriaxone per primary team and ID. Renally dose medications for GFR less than 20. She is planned for colonoscopy either tomorrow or friday. If done tomorrow, HD can be done before or after colonoscopy. (3) Anemia of renal disease: Patient with anemia due to renal disease. Hemoglobin of 10, no need for MARCELLA. (4) HTN (hypertension): Her blood pressure is above target today. Continue current regimen. Hold BP meds pre HD, ok to resume after dialysis Subjective ESRD patient complicated by strep bovis bacteremia. She had HD yesterday which was uneventful. No SOB today. No leg swelling. She is planned for colonoscopy. Review of Systems Review of Systems: All systems reviewed & are unremarkable except as noted in HPI & below Physical Exam Physical Exam: General exam: Appears comfortable, no acute distress HEENT: Pupils are equal and reactive to light Neck: No JVD, neck is supple trachea is midline Respiratory system: Clear breath sounds bilaterally. Gastrointestinal: Abdomen is soft, non distended, non tender, bowel sounds are present CVS: Regular rate and rhythm. No murmurs, rubs or gallops Musculoskeletal: No joint or muscle tenderness Extremities: Non tender, no edema, peripheral pulses are present Neuro: Oriented, no tremors, no focal neurological deficits Skin: No rashes Access: AVF left FA with good bruit Results & Data Vital Signs (Past 12 Hours) Vital Signs Temp Pulse Pulse Resp BP Pulse Ox 11/04/18 07:04 36.8 C 60 18 167/65 H 97 11/04/18 04:13 37.1 C 64 18 169/73 H 94 11/03/18 23:21 37.4 C 60 18 154/69 H 92 Laboratory Results Na 131, 3.9, cr 5, Hb 10.2 (1) HTN (hypertension) Hypertension type: unspecified Qualified Code(s): I10 - Essential (primary) hypertension
--- NOTE | 2018-11-04 11:15 | Infectious Disease Progress Nt ---
Date of Service November 04, 2018 Assessment & Plan (1) Streptococcus bovis infection: Patient with strep bovis bacteremia/sepsis. Significant association with GI malignancies, for colonoscopy later this week. Continue on ceftriaxone. Will likely need 4 weeks of IV antibiotics. Will follow. Subjective Patient seen in follow-up for strep bovis bacteremia. Patient feeling better today, offers no new complaints. GI consultation reviewed. Plans for colonoscopy noted. Remains afebrile. Review of Systems Review of Systems: All systems reviewed & are unremarkable except as noted in HPI & below Physical Exam Constitutional: WD/WN, vitals as above + ill appearing and comfortable; no acute distress Eyes: PERRL, conjunctivae normal, anicteric sclerae ENMT: external ear and nose normal, oropharynx normal Neck: trachea midline, no thyromegaly neck nontender Respiratory: normal respiratory effort, lungs clear to auscultation normal percussion; no respiratory distress and does not use accessory muscles Cardiovascular: Rate/Rhythm: regular rate and regular rhythm Heart Sounds: normal S1 and normal S2; no gallop, no murmur and no cardiac rub Vessels: normal peripheral pulses; no JVD Gastrointestinal (Abdomen): normal bowel sounds, soft, nontender, no hepatosplenomegaly Inspection/Auscultation: abdomen normal to inspection and + abdomen distended Percussion/Palpation: + abdomen tender; no hepatosplenomegaly and no abdominal mass Musculoskeletal: no cyanosis or clubbing, extremities motor strength 5/5 Spine: thoracic spine normal to inspection and lumbar spine normal to inspection; no cervical spinal tenderness Skin: no rashes, warm and dry normal turgor; no lesions Neurologic: patellar DTR's 2+ bilat, sensation intact moves all extremities and awake; no focal motor deficits Motor/Sensory: no sensory deficit Psychiatric: A+Ox3, euthymic affect Orientation: cooperative Lymphatic: no cervical or axillary lymphadenopathy no inguinal lymphadenopathy Results & Data Vital Signs (Past 12 Hours) Vital Signs Temp Pulse Pulse Resp BP Pulse Ox 11/04/18 07:04 36.8 C 60 18 167/65 H 97 11/04/18 04:13 37.1 C 64 18 169/73 H 94 11/03/18 23:21 37.4 C 60 18 154/69 H 92 Laboratory Results Short CBC 11/04/18 Range/Units 07:11 WBC 6.56 (4.8-10.8) K/uL Hgb 10.2 L (12.0-16.0) g/dL Hct 30.0 L (37-47) % Plt Count 70 L (130-400) K/uL BMP 11/04/18 07:11 Sodium 131 L Potassium 3.9 Chloride 96 L Carbon Dioxide 25 BUN 25 H Creatinine 5.01 H* D Glucose 122 H Calcium 8.6 Liver Function 11/04/18 Range/Units 07:11 Total Bilirubin 0.7 (0.2-1) mg/dl Direct Bilirubin 0.3 H (0-0.2) mg/dl AST 21 (15-37) U/L ALT 70 (12-78) U/L Alkaline Phosphatase 94 (45-117) U/L Albumin 3.0 L (3.4-5.0) gm/dl Diagnostic Findings Microbiology 11/02/18 05:00 Urine,Clean Catch Urine Culture - Preliminary No growth - Less than 1,000 colonies/mL, Final report to follow. 10/31/18 06:40 Stool Shiga Toxin Test - Final 10/31/18 06:40 Stool Stool Culture - Final No Salmonella isolated, No Shigella isolated, No Campylobacter jejuni isolated. 10/30/18 20:43 Blood Blood Culture - Final Streptococcus bovis 10/30/18 20:34 Blood Blood Culture - Final Streptococcus bovis 10/31/18 12:26 Blood Blood Culture - Preliminary No growth to date. 10/31/18 12:23 Blood Blood Culture - Preliminary No growth to date.
--- NOTE | 2018-11-04 11:16 | Gastroenterology Progress Note ---
Date of Service November 04, 2018 Assessment & Plan (1) Streptococcus bovis infection: 73 year old female w/ ESRD on dialysis, AFIB on coumadin and amiodarone, systolic HF s/p biventricular ICD who presents with N/V/D and sepsis, blood culture + strep bovine. She has gallstones, GB sludge, mild ascites on recent imaging however no formal diagnosis of liver disease. She has chronic thrombocytopenia and elevated INR secondary to coumadin. Her LFTs were mildly elevated at admission but have been trending down. We did discuss association between blood cultures and GI tract malignancy. Endoscopic evaluation w/ EGD and colonoscopy was recommended. As of now, she is uncertain how she wish to proceed. Now agreeable to EGD/Colon. Had regular diet this AM. gets dialysis on - Can have regular diet today - Liquid diet 11/05/18 - Prep w/ golytely 11/05/18 - NPO after midnight - Will need INR reversed, INR less than 1.5 - EGD/Colonoscopy 11/06/18 - Appreciate ongoing cardiology and nephrology input Thank you for allowing us to participate in the care of this patient. Please call with any acute changes, questions or concerns. Please see addendum below with additional recommendation from my supervising physician. Supervising Physician Co-Signing Physician Notes I have seen and examined the patient with BLAISE Feliz. No acute events overnite. Labs stable. Plan is for dialysis tomorrow. Clinical exam unchanged for tomorrow. EGD for anemia/Colon for strep bovis bacteremia - plan is for Friday, fri and Miralax today/ with prep to begin . Subjective Pt was seen and evaluated, chart reviewed. Agreeable to EGD/Colon. ESRD on dialysis ,,S. Had regular breakfast this AM. No abd pain, N/V. Denies black or bloody stools. Review of Systems Constitutional: no fever, no body aches, no weakness and no weight loss Respiratory: no cough, no dyspnea and no pain on inspiration Cardiovascular: no chest pain, no radiating jaw, neck or arm pain, no dyspnea on exertion and no palpitations Gastrointestinal: no belching, no nausea, no hematemesis, no dysphagia, no cramping, no diarrhea/loose stools, no blood in stools and no melena Physical Exam Constitutional: well developed, cooperative and comfortable; no acute distress Respiratory: normal respiratory effort, lungs clear to auscultation Cardiovascular: RRR, no murmur, no edema Gastrointestinal (Abdomen): normal bowel sounds, soft, nontender, no hepatosplenomegaly Skin: no rashes, warm and dry Results & Data Vital Signs (Past 12 Hours) Vital Signs Temp Pulse Pulse Resp BP Pulse Ox 11/04/18 07:04 36.8 C 60 18 167/65 H 97 11/04/18 04:13 37.1 C 64 18 169/73 H 94 11/03/18 23:21 37.4 C 60 18 154/69 H 92 Laboratory Results 11/04/18 11/04/18 11/04/18 Range/Units 07:20 07:11 07:11 WBC 6.56 (4.8-10.8) K/uL RBC 3.13 L (4.2-5.4) M/uL Hgb 10.2 L (12.0-16.0) g/dL Hct 30.0 L (37-47) % MCV 95.8 (80-100) fL MCH 32.6 (25-34) pg MCHC 34.0 (32-36) g/dL RDW Std Deviation 48.7 H (36.4-46.3) fL RDW Coeff of Jacobo 14.2 (11.5-14.5) % Plt Count 70 L (130-400) K/uL MPV 12.1 H (7.4-10.4) fL Platelet Estimate Decreased (Normal) PT 21.5 H (9.0-12.0) Seconds INR 2.2 H (0.9-1.1) Sodium (136-145) mmol/L Potassium (3.5-5.1) mmol/L Chloride (98-107) mmol/L Carbon Dioxide (21-32) mmol/L Anion Gap (3-11) BUN (7-18) mg/dl Creatinine (0.6-1.2) mg/dl Est Cr Clr Drug Dosing ml/min Est GFR ( Amer) Est GFR (Non-Af Amer) BUN/Creatinine Ratio (10-20) Glucose (70-99) mg/dl POC Glucose 124 H (70-99) Calcium (8.5-10.1) mg/dl Magnesium (1.8-2.4) mg/dl Total Bilirubin (0.2-1) mg/dl Direct Bilirubin (0-0.2) mg/dl AST (15-37) U/L ALT (12-78) U/L Alkaline Phosphatase (45-117) U/L Total Protein (6.4-8.2) gm/dl Albumin (3.4-5.0) gm/dl 11/04/18 11/03/18 11/03/18 Range/Units 07:11 20:23 16:06 WBC (4.8-10.8) K/uL RBC (4.2-5.4) M/uL Hgb (12.0-16.0) g/dL Hct (37-47) % MCV (80-100) fL MCH (25-34) pg MCHC (32-36) g/dL RDW Std Deviation (36.4-46.3) fL RDW Coeff of Jacobo (11.5-14.5) % Plt Count (130-400) K/uL MPV (7.4-10.4) fL Platelet Estimate (Normal) PT (9.0-12.0) Seconds INR (0.9-1.1) Sodium 131 L (136-145) mmol/L Potassium 3.9 (3.5-5.1) mmol/L Chloride 96 L (98-107) mmol/L Carbon Dioxide 25 (21-32) mmol/L Anion Gap 10.0 (3-11) BUN 25 H (7-18) mg/dl Creatinine 5.01 H* D (0.6-1.2) mg/dl Est Cr Clr Drug Dosing 9.4 ml/min Est GFR ( Amer) 9.2 Est GFR (Non-Af Amer) 8.0 BUN/Creatinine Ratio 4.9 L (10-20) Glucose 122 H (70-99) mg/dl POC Glucose 79 150 H (70-99) Calcium 8.6 (8.5-10.1) mg/dl Magnesium 2.4 (1.8-2.4) mg/dl Total Bilirubin 0.7 (0.2-1) mg/dl Direct Bilirubin 0.3 H (0-0.2) mg/dl AST 21 (15-37) U/L ALT 70 (12-78) U/L Alkaline Phosphatase 94 (45-117) U/L Total Protein 5.9 L (6.4-8.2) gm/dl Albumin 3.0 L (3.4-5.0) gm/dl 11/03/18 Range/Units 13:45 WBC (4.8-10.8) K/uL RBC (4.2-5.4) M/uL Hgb (12.0-16.0) g/dL Hct (37-47) % MCV (80-100) fL MCH (25-34) pg MCHC (32-36) g/dL RDW Std Deviation (36.4-46.3) fL RDW Coeff of Jacobo (11.5-14.5) % Plt Count (130-400) K/uL MPV (7.4-10.4) fL Platelet Estimate (Normal) PT (9.0-12.0) Seconds INR (0.9-1.1) Sodium (136-145) mmol/L Potassium (3.5-5.1) mmol/L Chloride (98-107) mmol/L Carbon Dioxide (21-32) mmol/L Anion Gap (3-11) BUN (7-18) mg/dl Creatinine (0.6-1.2) mg/dl Est Cr Clr Drug Dosing ml/min Est GFR ( Amer) Est GFR (Non-Af Amer) BUN/Creatinine Ratio (10-20) Glucose (70-99) mg/dl POC Glucose 101 H (70-99) Calcium (8.5-10.1) mg/dl Magnesium (1.8-2.4) mg/dl Total Bilirubin (0.2-1) mg/dl Direct Bilirubin (0-0.2) mg/dl AST (15-37) U/L ALT (12-78) U/L Alkaline Phosphatase (45-117) U/L Total Protein (6.4-8.2) gm/dl Albumin (3.4-5.0) gm/dl
[2018-11-04] MEDS ORDERED: INSULIN GLARGINE SOLOSTAR 100 UNITS/ML 3 ML PEN SQ SCH (14:00)
--- NOTE | 2018-11-04 14:35 | Pharmacy Report ---
Pharmacy Glycemic Short Note 2 - Date of Service November 04, 2018 - Glycemic Short BSG Results (Last 24 hours): 11/03/18 11/03/18 11/04/18 16:06 20:23 07:11 Glucose 122 H POC Glucose 150 H 79 11/04/18 11/04/18 07:20 11:07 Glucose POC Glucose 124 H 170 H ASSESSMENT: -: * Patient received total of 35 units of insulin yesterday, of which 25 units were basal * Fasting this am within range at 113 mg/dL - will continue scale for tonight as that is when patient takes insulin at home * BSGs w/in range - continue same CF/CR -: * 73 yo F with T2DM admitted with sepsis/GPC bacteremia 2nd possible GI or SST infection * BSG's better controlled yesterday. Was elevated to 229 mg/dL at HS, but ? if patient consumed CHO when diet was ordered @ dinner time and CHO not covered. Novolog already ordered at relatively tight parameters for weight. Will slightly tighten today 2nd persistent post-prandial elevation to 219 mg/dL at lunch today * AM fasting BSG elevated to 200 mg/dL - will give one time dose of 10 units this AM and continue with scale in PM PLAN FOR INPATIENT GLYCEMIC CONTROL: * Basal insulin: Lantus HS based on BSG * 15 units for BSG < 160 mg/dL * 20 units for BSG 160 - 200 mg/dL * 25 units for BSG > 200 mg/dL * Bolus insulin - no change * NovoLog per scale ACHS or Q6hrs while NPO * Goal Range: Low 120 mg/dL - High 160 mg/dL * Correction Factor: 25 mg/dL/unit * Nutritional / Prandial insulin per carb ratio of 1 unit per 9 grams CHO consumed
--- NOTE | 2018-11-04 14:43 | Pharmacy Report ---
Pharmacy Glycemic Short Note 2 - Date of Service November 04, 2018 - Glycemic Short BSG Results (Last 24 hours): 11/03/18 11/03/18 11/04/18 16:06 20:23 07:11 Glucose 122 H POC Glucose 150 H 79 11/04/18 11/04/18 07:20 11:07 Glucose POC Glucose 124 H 170 H ASSESSMENT: 11/04: * Patient received total of 11 units of insulin yesterday and all of this was correctional + prandial. * HS BSG was 79; so no lantus was given per provider. * Fasting BSG = 124 and lunch = 170 today. Patient is basal deficient; therefore Lantus 15 units was added this afternoon. * Novolog CR was loosened to 10 since patient is not eating very well (only ate 15 gm for breakfast and 22 gm for lunch) and since Lantus was resumed. 11-02: * Patient received total of 35 units of insulin yesterday, of which 25 units we re basal * Fasting this am within range at 113 mg/dL - will continue scale for tonight as that is when patient takes insulin at home * BSGs w/in range - continue same CF/CR 11-01: * 73 yo F with T2DM admitted with sepsis/GPC bacteremia 2nd possible GI or SST infection * BSG's better controlled yesterday. Was elevated to 229 mg/dL at HS, but ? if patient consumed CHO when diet was ordered @ dinner time and CHO not covered. Novolog already ordered at relatively tight parameters for weight. Will slightly tighten today 2nd persistent post-prandial elevation to 219 mg/dL at lunch today * AM fasting BSG elevated to 200 mg/dL - will give one time dose of 10 units this AM and continue with scale in PM PLAN FOR INPATIENT GLYCEMIC CONTROL: * Basal insulin: Lantus 15 units resumed this afternoon then HS. * Bolus insulin - loosened * NovoLog per scale ACHS or Q6hrs while NPO * Goal Range: Low 120 mg/dL - High 160 mg/dL * Correction Factor: 25 mg/dL/unit * Nutritional / Prandial insulin per carb ratio of 1 unit per 10 grams CHO consumed PLAN FOR DISCHARGE: * Home insulin regimen reported: Lantus 20 units QPM; Novolog 12 units TID with meals. * Recommend patient be discharged on their home insulin regimen as long as she was not reporting significant low BSGs or hyperglycemia.
[2018-11-04] MEDS: POLYETHYLENE (MIRALAX) 17 GM PACK PO SCH (15:55)
[2018-11-04] MEDS: cefTRIAXone SODIUM 2,000 MG in DEXTROSE 5% 50 ML IV SCH (17:54)
--- NOTE | 2018-11-04 18:11 | Hospitalist Progress Note ---
Date of Service November 04, 2018 Assessment & Plan (1) Gram-positive cocci bacteremia: Bacteremia Probable Endocarditis Blood culture: Streptococcus Bovis -To R/O GI malignancy Repeat Blood cultures: No growth to date Continue Ceftriaxone-- Likely needs 4 weeks of IV Abx Appreciate ID/Cardiology Input Heavily calcified valvular annulus formation--MANISH will provide limited information very complex patient--if device needs removal, it will be a very high risk procedure as per Cardiology AICD device interrogation showed multiple AICD shock per and on admission Planned for Colonoscopy on Friday Appreciate GI help Coumadin on hold INR:2.2 today Continue amiodarone, Coreg Monitor electrolytes Will need PICC line placement (2) Endocarditis: H/O endocarditis which was treated conservatively with several weeks of antibiotics in 2016. Management as above (3) Sepsis: Due to bacteremia, endocarditis continue Abx as above Multiple AICD Shock AICD interrogation shows frequent ventricular fibrillation with multiple AICD shock prior to patient's admission Patient denies symptoms Appreciate input from EP cardiology Device setting adjusted Continue home meds (4) Nausea, vomiting and diarrhea: Stool studies negative Resolved (5) Abdominal pain: Resolved (6) Ascites: (7) Elevated LFTs: Possibly secondary to sepsis-Improving Normalized CT ABD/PELVIS: Small amount of abdominal and pelvic ascites U/S liver mild gallbladder wall thickening 4 mm no evidence of acute cholecystitis: Monitor (8) Weakness: Secondary to above PT/OT (9) Cough: Reported non-productive cough x 1 week Negative influenza PCR CXR: Mild interstitial pulmonary edema and trace bilateral pleural effusions. Cardiomegaly. Improved (10) Elevated troponin: Mild Troponin elevation Secondary to sepsis, in the setting of end-stage renal disease, poor renal clearance Denies chest pain or shortness of breath Paced rhythm on EKG (11) End-stage renal disease (ESRD): On HD on , , Sat Missed Dialysis 10/29/18 Dialysis as per Nephro Appreciate Nephrology help (12) Idiopathic cardiomyopathy: S/P ICD Echo: 04/2018: EF: 40%, mild concentric LVH, moderate dilated RV, severely dilated R atrium, moderate tricupsid regurgitation (13) Paroxysmal atrial fibrillation: Continue on Coreg, Amiodarone Coumadin on hold (14) Hx of supraventricular tachycardia: Continue Coreg, amiodarone (15) Diabetes mellitus, type II: Insulin dependent A1c: 8.7 on 03/2018 Continue Lantus, Novolog sliding scale Glycemic pharmacy consult (16) HTN (hypertension): Stable Continue current meds (17) GERD (gastroesophageal reflux disease): Continue Ranitidine DVT Px: INR therapeutic Code Status Full Code Subjective Patient is seen and examined at bedside States feeling better No complaints Family at bedside Planned for colonoscopy on Friday Denies chest pain, SOB, dizziness, nausea, abd pain Review of Systems Review of Systems: All systems reviewed & are unremarkable except as noted in HPI & below Physical Exam Physical Exam: Physical Exam: Vitals signs as noted above General Appearance:Moderately built and nourished, no apparent distress Head: normocephalic, Atraumatic Eyes: normal inspection, EOMI Neck: supple, Trachea midline Respiratory/Chest: Normal breath sounds, CTA Cardiovascular: S1, S2, No murmur Abdomen/GI:Soft, Non tender, Bowel sounds present Extremities/Musculoskelatal:normal inspection, Trace edema Neurologic/Psych:AAOX3, grossly no focal neurological deficits Skin: normal color, warm Results & Data Vital Signs (Past 12 Hours) Vital Signs Temp Pulse Pulse Pulse Resp BP Pulse Ox 11/04/18 15:07 36.7 C 70 18 157/71 H 96 11/04/18 11:22 36.6 C 76 20 150/68 H 96 11/04/18 07:15 61 11/04/18 07:04 36.8 C 60 18 167/65 H 97 Laboratory Results Short CBC 11/04/18 Range/Units 07:11 WBC 6.56 (4.8-10.8) K/uL Hgb 10.2 L (12.0-16.0) g/dL Hct 30.0 L (37-47) % Plt Count 70 L (130-400) K/uL BMP 11/04/18 07:11 Sodium 131 L Potassium 3.9 Chloride 96 L Carbon Dioxide 25 BUN 25 H Creatinine 5.01 H* D Glucose 122 H Calcium 8.6 Liver Function 11/04/18 Range/Units 07:11 Total Bilirubin 0.7 (0.2-1) mg/dl Direct Bilirubin 0.3 H (0-0.2) mg/dl AST 21 (15-37) U/L ALT 70 (12-78) U/L Alkaline Phosphatase 94 (45-117) U/L Albumin 3.0 L (3.4-5.0) gm/dl (1) Endocarditis Endocarditis type: infective Infective endocarditis organism: bacterial Chronicity: unspecified Qualified Code(s): I33.0 - Acute and subacute infective endocarditis (2) Sepsis Sepsis type: Streptococcus, other Qualified Code(s): A40.8 - Other streptococcal sepsis (3) Abdominal pain Abdominal location: periumbilical Qualified Code(s): R10.33 - Periumbilical pain (4) Ascites Ascites type: other type Qualified Code(s): R18.8 - Other ascites (5) Diabetes mellitus, type II Diabetes mellitus long term care administrator insulin use: unspecified detention insulin use status Diabetes mellitus complication status: with kidney complications Diabetes mellitus complication detail: with chronic kidney disease Chronic kidney disease stage: on chronic dialysis Qualified Code(s): E11.22 - 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 diabetic chronic kidney disease; N18.6 - End stage renal disease; Z99.2 - Dependence on renal dialysis (6) HTN (hypertension) Hypertension type: unspecified Qualified Code(s): I10 - Essential (primary) hypertension (7) GERD (gastroesophageal reflux disease) Esophagitis presence: esophagitis presence not specified Qualified Code(s): K21.9 - Gastro-esophageal reflux disease without esophagitis
[2018-11-05 06:31] LABS: Hematocrit (blood only) 29.6 % (37-47); Hemoglobin 10.1 g/dL (12.0-16.0); Mean Corpuscular Hgb Conc 34.1 g/dL (32-36); Mean Corpuscular Volume 96.7 fL (80-100); RDW Coefficient of Variation 14.1 % (11.5-14.5); RDW Standard Deviation 48.3 fL (36.4-46.3); Red Blood Count 3.06 M/uL (4.2-5.4); White Blood Count 6.18 K/uL (4.8-10.8)
[2018-11-05 06:38] LABS: INR 1.7 (0.9-1.1); Prothrombin Time 16.9 Seconds (9.0-12.0)
[2018-11-05 07:01] LABS: Mean Platelet Volume 11.7 fL (7.4-10.4); Platelet Count 75 K/uL (130-400)
[2018-11-05 07:11] LABS: Est GFR (African American) 7.4; Potassium 3.6 mmol/L (3.5-5.1)
[2018-11-05 07:12] LABS: Calcium 8.6 mg/dl (8.5-10.1); Creatinine Clr Calc Pharmacy 7.9 ml/min; Est GFR (Non-African American) 6.4; Magnesium 2.2 mg/dl (1.8-2.4)
[2018-11-05] MEDS ORDERED: SODIUM CHLORIDE 0.9% 1000ML 1,000 ML IV PRN (08:18)
[2018-11-05] MEDS ORDERED: EPOETIN ALFA 10,000 UNITS/ML VIAL IV SCH (08:30)
[2018-11-05] MEDS: INSULIN ASPART 100 UNITS/ML 3 ML PEN SC SCH ×4 (08:36→20:48)
--- NOTE | 2018-11-05 09:28 | Gastroenterology Progress Note ---
Date of Service November 05, 2018 Assessment & Plan (1) Streptococcus bovis infection: 73 year old female w/ ESRD on dialysis, AFIB on coumadin and amiodarone, systolic HF s/p biventricular ICD who presents with N/V/D and sepsis, blood culture + strep bovine. She has gallstones, GB sludge, mild ascites on recent imaging however no formal diagnosis of liver disease. She has chronic thrombocytopenia and elevated INR secondary to coumadin. Her LFTs were mildly elevated at admission but have been trending down. We did discuss association between blood cultures and GI tract malignancy. Endoscopic evaluation w/ EGD and colonoscopy was recommended. As of now, she is uncertain how she wish to proceed. Now agreeable to EGD/Colon. On clear liquids. Going for dialysis today. Will need 1/2 of colytely prep after she returns from dialysis. Will need 1 soap suds enema tonight and a repeat soap suds enema tomorrow. - Clear liquid diet - NPO after midnight - Prep w/ 1/2 golytely after dialysis - Soap suds enema tonight - Soap suds enema this AM - Will need INR reversed, INR less than 1.5 - EGD/Colonoscopy 11/06/18 - Appreciate ongoing cardiology and nephrology input Thank you for allowing us to participate in the care of this patient. Please call with any acute changes, questions or concerns. Please see addendum below with additional recommendation from my supervising physician. Supervising Physician Co-Signing Physician Notes I have seen and examined the patient and discussed the management with BLAISE Feliz. No acute change overnite. Physical exam essentially unchanged. Labs stable. Dialysis today. INR is 1.7 today. Will plan for Egd/colonoscopy on Friday pending compliance with prep today - it has been ordered. Details of which are in Jadyn's plan portion of the note. Subjective Pt was seen and evaluated, chart reviewed. Clear liquid diet. No complaints. To go for dialysis today. Review of Systems Constitutional: no fever, no body aches, no weight loss and no insomnia Respiratory: no cough, no dyspnea, no pain on inspiration and no wheezing Cardiovascular: no chest pain, no radiating jaw, neck or arm pain, no dyspnea on exertion and no palpitations Gastrointestinal: no abdominal pain, no early satiety, no vomiting and no melena Physical Exam Constitutional: well developed, cooperative and comfortable; no acute distress Respiratory: normal respiratory effort, lungs clear to auscultation Cardiovascular: RRR, no murmur, no edema Gastrointestinal (Abdomen): normal bowel sounds, soft, nontender, no hepatosplenomegaly Skin: no rashes, warm and dry Results & Data Vital Signs (Past 12 Hours) Vital Signs Temp Pulse Pulse Resp BP Pulse Ox 11/05/18 08:23 36.7 C 60 20 192/65 H 98 11/05/18 02:59 36.7 C 60 18 133/65 95 11/05/18 00:11 36.6 C 69 18 173/83 H 94 Laboratory Results 11/05/18 11/05/18 11/05/18 Range/Units 07:37 05:53 05:53 WBC 6.18 (4.8-10.8) K/uL RBC 3.06 L (4.2-5.4) M/uL Hgb 10.1 L (12.0-16.0) g/dL Hct 29.6 L (37-47) % MCV 96.7 (80-100) fL MCH 33.0 (25-34) pg MCHC 34.1 (32-36) g/dL RDW Std Deviation 48.3 H (36.4-46.3) fL RDW Coeff of Jacobo 14.1 (11.5-14.5) % Plt Count 75 L (130-400) K/uL MPV 11.7 H (7.4-10.4) fL PT 16.9 H (9.0-12.0) Seconds INR 1.7 H (0.9-1.1) Sodium (136-145) mmol/L Potassium (3.5-5.1) mmol/L Chloride (98-107) mmol/L Carbon Dioxide (21-32) mmol/L Anion Gap (3-11) BUN (7-18) mg/dl Creatinine (0.6-1.2) mg/dl Est Cr Clr Drug Dosing ml/min Est GFR ( Amer) Est GFR (Non-Af Amer) BUN/Creatinine Ratio (10-20) Glucose (70-99) mg/dl POC Glucose 85 (70-99) Calcium (8.5-10.1) mg/dl Magnesium (1.8-2.4) mg/dl 11/05/18 11/04/18 11/04/18 Range/Units 05:53 20:17 16:25 WBC (4.8-10.8) K/uL RBC (4.2-5.4) M/uL Hgb (12.0-16.0) g/dL Hct (37-47) % MCV (80-100) fL MCH (25-34) pg MCHC (32-36) g/dL RDW Std Deviation (36.4-46.3) fL RDW Coeff of Jacobo (11.5-14.5) % Plt Count (130-400) K/uL MPV (7.4-10.4) fL PT (9.0-12.0) Seconds INR (0.9-1.1) Sodium 130 L (136-145) mmol/L Potassium 3.6 (3.5-5.1) mmol/L Chloride 95 L (98-107) mmol/L Carbon Dioxide 27 (21-32) mmol/L Anion Gap 8.0 (3-11) BUN 29 H (7-18) mg/dl Creatinine 5.98 H* D (0.6-1.2) mg/dl Est Cr Clr Drug Dosing 7.9 ml/min Est GFR ( Amer) 7.4 Est GFR (Non-Af Amer) 6.4 BUN/Creatinine Ratio 5.0 L (10-20) Glucose 80 (70-99) mg/dl POC Glucose 144 H 186 H (70-99) Calcium 8.6 (8.5-10.1) mg/dl Magnesium 2.2 (1.8-2.4) mg/dl 11/04/18 Range/Units 11:07 WBC (4.8-10.8) K/uL RBC (4.2-5.4) M/uL Hgb (12.0-16.0) g/dL Hct (37-47) % MCV (80-100) fL MCH (25-34) pg MCHC (32-36) g/dL RDW Std Deviation (36.4-46.3) fL RDW Coeff of Jacobo (11.5-14.5) % Plt Count (130-400) K/uL MPV (7.4-10.4) fL PT (9.0-12.0) Seconds INR (0.9-1.1) Sodium (136-145) mmol/L Potassium (3.5-5.1) mmol/L Chloride (98-107) mmol/L Carbon Dioxide (21-32) mmol/L Anion Gap (3-11) BUN (7-18) mg/dl Creatinine (0.6-1.2) mg/dl Est Cr Clr Drug Dosing ml/min Est GFR ( Amer) Est GFR (Non-Af Amer) BUN/Creatinine Ratio (10-20) Glucose (70-99) mg/dl POC Glucose 170 H (70-99) Calcium (8.5-10.1) mg/dl Magnesium (1.8-2.4) mg/dl
[2018-11-05] MEDS: POLYETHYLENE (MIRALAX) 17 GM PACK PO SCH (09:30)
--- NOTE | 2018-11-05 09:50 | Nephrology Progress Note ---
Date of Service November 05, 2018 Assessment & Plan (1) End-stage renal disease (ESRD): Patient with ESRD on dialysis Friday. She is tolerating this well today. She is planned for 4 hours and net UF of 2.5 L. Next HD will be on Friday. (2) Gram-positive cocci bacteremia: Due to Streptococcus bovis. Patient is receiving ceftriaxone per primary team and ID. Renally dose medications for GFR less than 20. She is planned for colonoscopy friday. Patient can potentially receive antibiotics with dialysis but will need an antibiotic which can be dosed 3 times a week. If patient needs daily antibiotics, consider midline catheter. (3) Anemia of renal disease: Patient with anemia due to renal disease. Hemoglobin of 10, will give 10,000 units of Epogen with dialysis today. (4) HTN (hypertension): Her blood pressure is controlled. Continue current regimen. Hold BP meds pre HD, ok to resume after dialysis Subjective ESRD patient seen and examined on dialysis. She is also being treated for strep bovis bacteremia. No fever. No vomiting or diarrhea. She denies any shortness of breath. She is scheduled for colonoscopy tomorrow. Review of Systems Review of Systems: All systems reviewed & are unremarkable except as noted in HPI & below Physical Exam Physical Exam: General exam: Appears comfortable, no acute distress HEENT: Pupils are equal and reactive to light Neck: No JVD, neck is supple trachea is midline Respiratory system: Clear breath sounds bilaterally. Gastrointestinal: Abdomen is soft, non distended, non tender, bowel sounds are present CVS: Regular rate and rhythm. No murmurs, rubs or gallops Musculoskeletal: No joint or muscle tenderness Extremities: Non tender, no edema, peripheral pulses are present Neuro: Oriented, no tremors, no focal neurological deficits Skin: No rashes Access: left AVF Results & Data Vital Signs (Past 12 Hours) Vital Signs Temp Pulse Pulse Pulse Resp BP BP 11/05/18 09:20 36.5 C 60 64 156/54 H 11/05/18 08:23 36.7 C 60 20 192/65 H 11/05/18 02:59 36.7 C 60 18 133/65 11/05/18 00:11 36.6 C 69 18 173/83 H Pulse Ox 11/05/18 09:20 11/05/18 08:23 98 11/05/18 02:59 95 11/05/18 00:11 94 Laboratory Results Laboratory Results - last 24 hr 11/04/18 11/04/18 11/04/18 11:07 16:25 20:17 WBC RBC Hgb Hct MCV MCH MCHC RDW Std Deviation RDW Coeff of Jacobo Plt Count MPV PT INR Sodium Potassium Chloride Carbon Dioxide Anion Gap BUN Creatinine Est Cr Clr Drug Dosing Est GFR ( Amer) Est GFR (Non-Af Amer) BUN/Creatinine Ratio Glucose POC Glucose 170 H 186 H 144 H Calcium Magnesium 11/05/18 11/05/18 11/05/18 05:53 05:53 05:53 WBC 6.18 RBC 3.06 L Hgb 10.1 L Hct 29.6 L MCV 96.7 MCH 33.0 MCHC 34.1 RDW Std Deviation 48.3 H RDW Coeff of Jacobo 14.1 Plt Count 75 L MPV 11.7 H PT 16.9 H INR 1.7 H Sodium 130 L Potassium 3.6 Chloride 95 L Carbon Dioxide 27 Anion Gap 8.0 BUN 29 H Creatinine 5.98 H* D Est Cr Clr Drug Dosing 7.9 Est GFR ( Amer) 7.4 Est GFR (Non-Af Amer) 6.4 BUN/Creatinine Ratio 5.0 L Glucose 80 POC Glucose Calcium 8.6 Magnesium 2.2 11/05/18 07:37 WBC RBC Hgb Hct MCV MCH MCHC RDW Std Deviation RDW Coeff of Jacobo Plt Count MPV PT INR Sodium Potassium Chloride Carbon Dioxide Anion Gap BUN Creatinine Est Cr Clr Drug Dosing Est GFR ( Amer) Est GFR (Non-Af Amer) BUN/Creatinine Ratio Glucose POC Glucose 85 Calcium Magnesium (1) HTN (hypertension) Hypertension type: unspecified Qualified Code(s): I10 - Essential (primary) hypertension
[2018-11-05] MEDS: CALCIUM ACETATE 667 MG CAP PO SCH ×3 (10:00→16:53)
--- NOTE | 2018-11-05 11:03 | Infectious Disease Progress Nt ---
Date of Service November 05, 2018 Assessment & Plan (1) Streptococcus bovis infection: Patient with strep bovis bacteremia/sepsis. Significant association with GI malignancies, for colonoscopy tomorrow. Continue on ceftriaxone. Will likely need 4 weeks of IV antibiotics. Will follow. Subjective Patient seen in follow-up for strep bovis bacteremia. Status post hemodialysis. No new complaints today. Remains afebrile. For colonoscopy tomorrow. Review of Systems Review of Systems: All systems reviewed & are unremarkable except as noted in HPI & below Physical Exam Constitutional: WD/WN, vitals as above + ill appearing and comfortable; no acute distress Eyes: PERRL, conjunctivae normal, anicteric sclerae ENMT: external ear and nose normal, oropharynx normal Neck: trachea midline, no thyromegaly neck nontender Respiratory: normal respiratory effort, lungs clear to auscultation normal percussion; no respiratory distress and does not use accessory muscles Cardiovascular: Rate/Rhythm: regular rate and regular rhythm Heart Sounds: normal S1 and normal S2; no gallop, no murmur and no cardiac rub Vessels: normal peripheral pulses; no JVD Gastrointestinal (Abdomen): normal bowel sounds, soft, nontender, no hepatosplenomegaly Inspection/Auscultation: abdomen normal to inspection and + abdomen distended Percussion/Palpation: + abdomen tender; no hepatosplenomegaly and no abdominal mass Musculoskeletal: no cyanosis or clubbing, extremities motor strength 5/5 Spine: thoracic spine normal to inspection and lumbar spine normal to inspection; no cervical spinal tenderness Skin: no rashes, warm and dry normal turgor; no lesions Neurologic: patellar DTR's 2+ bilat, sensation intact moves all extremities and awake; no focal motor deficits Motor/Sensory: no sensory deficit Psychiatric: A+Ox3, euthymic affect Orientation: cooperative Lymphatic: no cervical or axillary lymphadenopathy no inguinal lymphadenopathy Results & Data Vital Signs (Past 12 Hours) Vital Signs Temp Pulse Pulse Pulse Resp BP BP 11/05/18 09:40 60 179/79 H 11/05/18 09:20 36.5 C 60 64 156/54 H 11/05/18 08:23 36.7 C 60 20 192/65 H 11/05/18 02:59 36.7 C 60 18 133/65 11/05/18 00:11 36.6 C 69 18 173/83 H Pulse Ox 11/05/18 09:40 11/05/18 09:20 11/05/18 08:23 98 11/05/18 02:59 95 11/05/18 00:11 94 Laboratory Results Short CBC 11/05/18 Range/Units 05:53 WBC 6.18 (4.8-10.8) K/uL Hgb 10.1 L (12.0-16.0) g/dL Hct 29.6 L (37-47) % Plt Count 75 L (130-400) K/uL BMP 11/05/18 05:53 Sodium 130 L Potassium 3.6 Chloride 95 L Carbon Dioxide 27 BUN 29 H Creatinine 5.98 H* D Glucose 80 Calcium 8.6 Diagnostic Findings Microbiology 11/02/18 05:00 Urine,Clean Catch Urine Culture - Final No growth - less than 1,000 colonies/mL. 10/31/18 06:40 Stool Shiga Toxin Test - Final 10/31/18 06:40 Stool Stool Culture - Final No Salmonella isolated, No Shigella isolated, No Campylobacter jejuni isolated. 10/30/18 20:43 Blood Blood Culture - Final Streptococcus bovis 10/30/18 20:34 Blood Blood Culture - Final Streptococcus bovis 10/31/18 12:26 Blood Blood Culture - Preliminary No growth to date. 10/31/18 12:23 Blood Blood Culture - Preliminary No growth to date.
--- NOTE | 2018-11-05 11:08 | Cardiology Progress Note ---
Date of Service November 05, 2018 Assessment & Plan (1) Gram-positive cocci bacteremia: The patient has a previous history of endocarditis which was treated conservatively with several weeks of antibiotics in 2016. Infectious disease and electrophysiology consults appreciated. I reviewed the transthoracic echocardiogram myself along with Dr. Aviles. The patient has heavily calcified valvular annulus formation which is not unexpected in a dialysis patient. Ultrasound whether by transthoracic or transesophageal will unfortunately provide limited information. I would recommend treating for endocarditis at this point with several weeks of antibiotics. She is a very complex patient and if the device requires removal, it will be a very high risk procedure. Strep bovis is associated to GI malignancies. GI consult is appreciated. According to the Mil criteria for preoperative risk assessment she has an 11% risk of having a cardiovascular event, most likely on the basis of developing pulmonary edema due to her history of heart failure. The Mays criteria would estimate her probable risk at 3.44% for perioperative myocardial infarction or cardiac arrest. She is currently optimally medically managed and will receive her usual dialysis on with the planned colonoscopy on Friday. Since her hospital admission, she has had no significant arrhythmias and currently remains in a paced rhythm. Holding warfarin in anticipation of procedure. (2) Idiopathic cardiomyopathy: Stable past several years. Previous heart catheterizations have shown normal coronaries. The patient's blood pressure is up today. She was on carvedilol 50 mg twice daily at home and I will increase the dosage accordingly. (3) End-stage renal disease (ESRD): Receiving dialysis (4) Biventricular ICD (implantable cardioverter-defibrillator) in place: Electrophysiology consult appreciated. The patient did have multiple shocks related to ventricular fibrillation/flutter. Restart amiodarone. (5) Nausea, vomiting and diarrhea: CT of the abdomen indicates thickening and possibly colitis which may be an etiology of her nausea, vomiting and diarrhea. Patient had strep bovis bacteremia which is associated to GI malignancies. Subjective The patient is receiving dialysis. She will then receive a prep for colonoscopy tomorrow. Review of Systems Review of Systems: All systems reviewed & are unremarkable except as noted in HPI & below No changes Physical Exam Physical Exam: General: no acute distress and stated age Head: normocephalic, no masses, lesions, tenderness or abnormalities Eyes: conjunctiva are pink and non-injected, sclera clear Neck: supple, no adenopathy, no bruits, normal jugular venous pulse, no hepatojugular reflux Chest: normal shape and normal respiratory effort Lungs: clear to auscultation and percussion Cardiac Exam: - regular rate & rhythm, no murmurs gallops or rubs - normal S1, normal S2 Pulses: 2(+) throughout Abdomen: abdomen soft, non-tender, no abnormal masses and no hepatosplenomegaly Musculoskeletal: no gait disturbance, no joint inflammation, no deforming arthritis Extremities: no edema and no cyanosis Neuro: grossly normal exam Results & Data Vital Signs (Past 12 Hours) Vital Signs Temp Pulse Pulse Pulse Resp BP BP 11/05/18 09:40 60 179/79 H 11/05/18 09:20 36.5 C 60 64 156/54 H 11/05/18 08:23 36.7 C 60 20 192/65 H 11/05/18 02:59 36.7 C 60 18 133/65 11/05/18 00:11 36.6 C 69 18 173/83 H Pulse Ox 11/05/18 09:40 11/05/18 09:20 11/05/18 08:23 98 11/05/18 02:59 95 11/05/18 00:11 94 Laboratory Results Laboratory Results - last 24 hr 11/04/18 11/04/18 11/04/18 11:07 16:25 20:17 WBC RBC Hgb Hct MCV MCH MCHC RDW Std Deviation RDW Coeff of Jacobo Plt Count MPV PT INR Sodium Potassium Chloride Carbon Dioxide Anion Gap BUN Creatinine Est Cr Clr Drug Dosing Est GFR ( Amer) Est GFR (Non-Af Amer) BUN/Creatinine Ratio Glucose POC Glucose 170 H 186 H 144 H Calcium Magnesium 11/05/18 11/05/18 11/05/18 05:53 05:53 05:53 WBC 6.18 RBC 3.06 L Hgb 10.1 L Hct 29.6 L MCV 96.7 MCH 33.0 MCHC 34.1 RDW Std Deviation 48.3 H RDW Coeff of Jacobo 14.1 Plt Count 75 L MPV 11.7 H PT 16.9 H INR 1.7 H Sodium 130 L Potassium 3.6 Chloride 95 L Carbon Dioxide 27 Anion Gap 8.0 BUN 29 H Creatinine 5.98 H* D Est Cr Clr Drug Dosing 7.9 Est GFR ( Amer) 7.4 Est GFR (Non-Af Amer) 6.4 BUN/Creatinine Ratio 5.0 L Glucose 80 POC Glucose Calcium 8.6 Magnesium 2.2 11/05/18 07:37 WBC RBC Hgb Hct MCV MCH MCHC RDW Std Deviation RDW Coeff of Jacobo Plt Count MPV PT INR Sodium Potassium Chloride Carbon Dioxide Anion Gap BUN Creatinine Est Cr Clr Drug Dosing Est GFR ( Amer) Est GFR (Non-Af Amer) BUN/Creatinine Ratio Glucose POC Glucose 85 Calcium Magnesium Medications Administered Current Inpatient Medications Amiodarone HCl (Cordarone) 200 mg PO DAILY [facility] Stop: 11/30/18 08:59 Last Admin: 10/31/18 08:02 Dose: 200 mg Documented by: Calcium Acetate (Phoslo) 1,334 mg PO TIDM [facility] Stop: 11/30/18 07:59 Last Admin: 11/05/18 10:00 Dose: Not Given Documented by: Carvedilol (Coreg) 50 mg PO BID [facility] Stop: 12/05/18 20:59 Dextrose (Dextrose 50%) 25 - 50 ml IV UD PRN; Protocol PRN Reason: Hypoglycemia Protocol Stop: 11/29/18 19:14 Epoetin Aubrey (Procrit) 10,000 units IV TODAY@0830 [facility] Stop: 11/05/18 16:00 Last Admin: 11/05/18 10:24 Dose: 10,000 units Documented by: Glucagon (Glucagen) 1 mg IM UD PRN; Protocol PRN Reason: Hypoglycemia Protocol Stop: 11/29/18 19:14 Glucose (Glucose 40%) 15 - 30 gm PO UD PRN; Protocol PRN Reason: Hypoglycemia Protocol Stop: 11/29/18 19:14 Glucose (Dex4 Glucose) 4 - 8 tabs PO UD PRN; Protocol PRN Reason: Hypoglycemia Protocol Stop: 11/29/18 19:14 Hydralazine HCl (Apresoline) 25 mg PO BID [facility] Stop: 11/29/18 20:59 Last Admin: 11/04/18 20:32 Dose: 25 mg Documented by: Acetaminophen (Ofirmev) 1,000 mg in 100 mls @ 400 mls/hr IV Q8H PRN PRN Reason: Pain Stop: 11/30/18 09:44 Last Infusion: 10/31/18 22:23 Dose: Infused Documented by: Promethazine HCl 12.5 mg/ (Sodium Chloride) 50.5 mls @ 202 mls/hr IV Q6H PRN PRN Reason: Nausea And Vomiting Stop: 12/01/18 18:21 Last Infusion: 11/01/18 19:15 Dose: Infused Documented by: Ceftriaxone Sodium 2,000 mg/ (Dextrose) 70 mls @ 100 mls/hr IV DAILY@1800 [facility]; Protocol Stop: 11/16/18 17:59 Last Infusion: 11/04/18 18:36 Dose: Infused Documented by: Sodium Chloride (Nss 1000ml) 1,000 mls @ 0 mls/hr IV .Q0M PRN PRN Reason: For Hemodialysis Use ONLY Stop: 11/05/18 14:17 Insulin Aspart (Novolog Flexpen) 0 units SC ACHS [facility]; Protocol Stop: 11/30/18 21:44 Last Admin: 11/05/18 08:36 Dose: Not Given Documented by: Insulin Glargine (Lantus Solostar Pen) 15 units SQ QPM [facility]; Protocol Stop: 12/05/18 20:59 Lidocaine/Prilocaine (Emla 2.5%) 1 ea EXT PRN PRN PRN Reason: DIALYSIS Stop: 11/29/18 18:20 Lorazepam (Ativan) 0.5 mg PO Q8 PRN PRN Reason: Anxiety Stop: 12/02/18 17:49 Miscellaneous (Carbohydrates For Hypoglycemia) 15 - 30 gm PO UD PRN PRN Reason: Hypoglycemia Treatment Stop: 11/29/18 19:14 Miscellaneous Information (Consult Glycemic Management Pharmacy) 1 ea N/A UD PRN PRN Reason: Consult Stop: 11/29/18 18:52 Morphine Sulfate (Morphine Sulfate) 0.5 mg IV Q4H PRN PRN Reason: Pain Stop: 11/13/18 18:20 Last Admin: 11/03/18 21:42 Dose: 0.5 mg Documented by: Polyethylene Glycol (Miralax Powder Packet) 17 gm PO DAILY [facility] Stop: 12/04/18 15:14 Last Admin: 11/05/18 09:30 Dose: 17 gm Documented by: Polyethylene Glycol/Electrolytes (Golytely) 1 dose PO UD [facility] Stop: 12/05/18 17:29 Ranitidine HCl (Zantac) 150 mg PO BID [facility] Stop: 12/01/18 20:59 Last Admin: 11/04/18 20:32 Dose: 150 mg Documented by: Torsemide (Demadex) 20 mg PO DAILY [facility] Stop: 11/30/18 08:59 Last Admin: 11/04/18 08:59 Dose: 20 mg Documented by: Warfarin Sodium (Coumadin) 4 mg PO DAILY@1600 [facility] Stop: 11/29/18 18:59 Last Admin: 10/30/18 21:41 Dose: 4 mg Documented by:
[2018-11-05] MEDS: CARVEDILOL 25 MG TAB PO SCH ×2 (13:09→20:47)
[2018-11-05] MEDS: TORSEMIDE 10 MG TAB PO SCH (14:02)
[2018-11-05] MEDS: AMIODARONE 200 MG TAB PO SCH (14:29)
--- NOTE | 2018-11-05 15:06 | Pharmacy Report ---
Pharmacy Glycemic Short Note 2 - Date of Service November 05, 2018 - Glycemic Short BSG Results (Last 24 hours): 11/04/18 11/04/18 11/05/18 16:25 20:17 05:53 Glucose 80 POC Glucose 186 H 144 H 11/05/18 11/05/18 07:37 11:26 Glucose POC Glucose 85 98 OUTPATIENT ANTIDIABETIC REGIMEN: * Lantus 20 units QPM * Novolog 12 units TID with meals. ASSESSMENT 11/05 * Patient received total of 24 units of insulin yesterday; 15 units of which was basal Lantus. * Fasting BSG = 80 indicates she received slightly too much Lantus yesterday. Decreased Lantus and moved dose based on scale to HS. * Patient got Hemodialysis today; lunch BSG = 98. Typically lower BSGs reported in this patient on HD days. * Novolog CF/CR loosened today based on low BSGs. She may need tightened back to CF/CR = 25/10 tomorrow (non-hemodialysis day). 11/04: * Patient received total of 11 units of insulin yesterday and all of this was correctional + prandial. * HS BSG was 79; so no lantus was given per provider. * Fasting BSG = 124 and lunch = 170 today. Patient is basal deficient; therefore Lantus 15 units was added this afternoon. * Novolog CR was loosened to 10 since patient is not eating very well (only ate 15 gm for breakfast and 22 gm for lunch) and since Lantus was resumed. 11-02: * Patient received total of 35 units of insulin yesterday, of which 25 units were basal * Fasting this am within range at 113 mg/dL - will continue scale for tonight as that is when patient takes insulin at home * BSGs w/in range - continue same CF/CR 11-01: * 73 yo F with T2DM admitted with sepsis/GPC bacteremia 2nd possible GI or SST infection * BSG's better controlled yesterday. Was elevated to 229 mg/dL at HS, but ? if patient consumed CHO when diet was ordered @ dinner time and CHO not covered. Novolog already ordered at relatively tight parameters for weight. Will slightly tighten today 2nd persistent post-prandial elevation to 219 mg/dL at lunch today * AM fasting BSG elevated to 200 mg/dL - will give one time dose of 10 units this AM and continue with scale in PM PLAN FOR INPATIENT GLYCEMIC CONTROL: * Basal insulin: decreased * Lantus HS based on scale as follows: - for BSG less than or equal to 140, give 0 units - for BSG greater than 140, give 10 units * Bolus insulin - loosened further * NovoLog per scale ACHS or Q6hrs while NPO * Goal Range: Low 120 mg/dL - High 160 mg/dL * Correction Factor: 30 mg/dL/unit * Nutritional / Prandial insulin per carb ratio of 1 unit per 12 grams CHO consumed PLAN FOR DISCHARGE: * Home insulin regimen reported: Lantus 20 units QPM; Novolog 12 units TID with meals. * Recommend patient be discharged on their home insulin regimen as long as she was not reporting significant low BSGs or hyperglycemia.
[2018-11-05] MEDS: cefTRIAXone SODIUM 2,000 MG in DEXTROSE 5% 50 ML IV SCH (16:53)
[2018-11-05] MEDS ORDERED: LAVAGE SOLUTION 4000ML PO SCH (17:30)
--- NOTE | 2018-11-05 18:51 | Hospitalist Progress Note ---
Date of Service November 05, 2018 Assessment & Plan (1) Gram-positive cocci bacteremia: Bacteremia Probable Endocarditis Blood culture: Streptococcus Bovis -To R/O GI malignancy Repeat Blood cultures: No growth to date Continue Ceftriaxone-- Likely needs 4 weeks of IV Abx Appreciate ID/Cardiology Input Heavily calcified valvular annulus formation--MANISH will provide limited information very complex patient--if device needs removal, it will be a very high risk procedure as per Cardiology AICD device interrogation showed multiple AICD shock per and on admission Planned for EGD/Colonoscopy tomorrow Appreciate GI help Coumadin on hold for procedure INR:1.7 today Continue amiodarone, Coreg Monitor electrolytes Plan for PICC line placement as able Bowel prep today (2) Endocarditis: H/O endocarditis which was treated conservatively with several weeks of antibiotics in 2016. Management as above (3) Sepsis: Due to bacteremia, endocarditis continue Abx as above Multiple AICD Shock AICD interrogation shows frequent ventricular fibrillation with multiple AICD shock prior to patient's admission Patient denies symptoms Appreciate input from EP cardiology Device setting adjusted Continue home meds (4) Nausea, vomiting and diarrhea: Stool studies negative Resolved (5) Abdominal pain: Resolved (6) Ascites: (7) Elevated LFTs: Possibly secondary to sepsis-Improving Normalized CT ABD/PELVIS: Small amount of abdominal and pelvic ascites U/S liver mild gallbladder wall thickening 4 mm no evidence of acute cholecystitis: Monitor (8) Weakness: Secondary to above PT/OT (9) Cough: Reported non-productive cough x 1 week Negative influenza PCR CXR: Mild interstitial pulmonary edema and trace bilateral pleural effusions. Cardiomegaly. Improved (10) Elevated troponin: Mild Troponin elevation Secondary to sepsis, in the setting of end-stage renal disease, poor renal clearance Denies chest pain or shortness of breath Paced rhythm on EKG (11) End-stage renal disease (ESRD): On HD on , , Sat Missed Dialysis 10/29/18 Dialysis as per Nephro Appreciate Nephrology help (12) Idiopathic cardiomyopathy: S/P ICD Echo: 04/2018: EF: 40%, mild concentric LVH, moderate dilated RV, severely dilated R atrium, moderate tricupsid regurgitation (13) Paroxysmal atrial fibrillation: Continue on Coreg, Amiodarone Coumadin on hold (14) Hx of supraventricular tachycardia: Continue Coreg, amiodarone (15) Diabetes mellitus, type II: Insulin dependent A1c: 8.7 on 03/2018 Continue Lantus, Novolog sliding scale Glycemic pharmacy consult (16) HTN (hypertension): Stable Continue current meds (17) GERD (gastroesophageal reflux disease): Continue Ranitidine DVT Px: Coumadin held SCDs for now Code Status Full Code Subjective Patient is seen and examined at bedside Had HD earlier this morning No new complaints Planned for EGD/colonoscopy tomorrow Denies chest pain, SOB, dizziness, nausea, abd pain Bowel prep today as per GI Review of Systems Review of Systems: All systems reviewed & are unremarkable except as noted in HPI & below Physical Exam Physical Exam: Physical Exam: Vitals signs as noted above General Appearance:Moderately built and nourished, no apparent distress Head: normocephalic, Atraumatic Eyes: normal inspection, EOMI Neck: supple, Trachea midline Respiratory/Chest: Normal breath sounds, CTA Cardiovascular: S1, S2, No murmur Abdomen/GI:Soft, Non tender, Bowel sounds present Extremities/Musculoskelatal:normal inspection, Trace edema Neurologic/Psych:AAOX3, grossly no focal neurological deficits Skin: normal color, warm Results & Data Vital Signs (Past 12 Hours) Vital Signs Temp Pulse Pulse Pulse Resp BP BP 11/05/18 16:00 62 11/05/18 15:10 37.1 C 63 18 185/71 H 11/05/18 14:00 62 194/79 H 11/05/18 13:45 37.1 C 60 186/80 H 11/05/18 13:00 60 192/88 H 11/05/18 12:40 60 184/79 H 11/05/18 12:20 60 184/73 H 11/05/18 12:00 60 174/73 H 11/05/18 11:40 60 191/78 H 11/05/18 11:20 60 192/76 H 11/05/18 11:00 60 199/76 H 11/05/18 10:40 60 197/84 H 11/05/18 10:20 60 185/78 H 11/05/18 10:00 60 186/75 H 11/05/18 09:40 60 179/79 H 11/05/18 09:20 36.5 C 60 64 156/54 H 11/05/18 08:23 36.7 C 60 20 192/65 H 11/05/18 07:15 66 Pulse Ox 11/05/18 16:00 11/05/18 15:10 92 11/05/18 14:00 11/05/18 13:45 11/05/18 13:00 11/05/18 12:40 11/05/18 12:20 11/05/18 12:00 11/05/18 11:40 11/05/18 11:20 11/05/18 11:00 11/05/18 10:40 11/05/18 10:20 11/05/18 10:00 11/05/18 09:40 11/05/18 09:20 11/05/18 08:23 98 11/05/18 07:15 Laboratory Results Short CBC 11/05/18 Range/Units 05:53 WBC 6.18 (4.8-10.8) K/uL Hgb 10.1 L (12.0-16.0) g/dL Hct 29.6 L (37-47) % Plt Count 75 L (130-400) K/uL BMP 11/05/18 05:53 Sodium 130 L Potassium 3.6 Chloride 95 L Carbon Dioxide 27 BUN 29 H Creatinine 5.98 H* D Glucose 80 Calcium 8.6 (1) Endocarditis Endocarditis type: infective Infective endocarditis organism: bacterial Chronicity: unspecified Qualified Code(s): I33.0 - Acute and subacute infective endocarditis (2) Sepsis Sepsis type: Streptococcus, other Qualified Code(s): A40.8 - Other streptococcal sepsis (3) Abdominal pain Abdominal location: periumbilical Qualified Code(s): R10.33 - Periumbilical pain (4) Ascites Ascites type: other type Qualified Code(s): R18.8 - Other ascites (5) Diabetes mellitus, type II 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: unspecified snf insulin use status Diabetes mellitus complication status: with kidney complications Diabetes mellitus complication detail: with chronic kidney disease Chronic kidney disease stage: on chronic dialysis Qualified Code(s): E11.22 - 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 diabetic chronic kidney disease; N18.6 - End stage renal disease; Z99.2 - Dependence on renal dialysis (6) HTN (hypertension) Hypertension type: unspecified Qualified Code(s): I10 - Essential (primary) hypertension (7) GERD (gastroesophageal reflux disease) Esophagitis presence: esophagitis presence not specified Qualified Code(s): K21.9 - Gastro-esophageal reflux disease without esophagitis
[2018-11-05] MEDS ORDERED: INSULIN GLARGINE SOLOSTAR 100 UNITS/ML 3 ML PEN SQ SCH ×2 (21:00)
[2018-11-05] MEDS ORDERED: Nursing to Pharmacy Communication ONE (23:42)
[2018-11-06] MEDS: INSULIN ASPART 100 UNITS/ML 3 ML PEN SC SCH ×4 (06:24→21:21)
[2018-11-06 06:27] LABS: INR 1.8 (0.9-1.1); Prothrombin Time 17.9 Seconds (9.0-12.0)
[2018-11-06 06:54] LABS: BUN Creatinine Ratio 3.1 (10-20); Calcium 8.7 mg/dl (8.5-10.1); Creatinine Clr Calc Pharmacy 13.4 ml/min; Est GFR (African American) 14.4; Est GFR (Non-African American) 12.4; Magnesium 2.1 mg/dl (1.8-2.4); Potassium 4.2 mmol/L (3.5-5.1)
--- NOTE | 2018-11-06 08:26 | Cardiology Progress Note ---
Date of Service November 06, 2018 Assessment & Plan (1) Gram-positive cocci bacteremia: The patient has a previous history of endocarditis which was treated conservatively with several weeks of antibiotics in 2016. Infectious disease and electrophysiology consults appreciated. I reviewed the transthoracic echocardiogram myself along with Dr. Aviles. The patient has heavily calcified valvular annulus formation which is not unexpected in a dialysis patient. Ultrasound whether by transthoracic or transesophageal will unfortunately provide limited information. I would recommend treating for endocarditis at this point with several weeks of antibiotics. She is a very complex patient and if the device requires removal, it will be a very high risk procedure. Strep bovis is associated to GI malignancies. GI consult is appreciated. According to the Mil criteria for preoperative risk assessment she has an 11% risk of having a cardiovascular event, most likely on the basis of developing pulmonary edema due to her history of heart failure. The Mays criteria would estimate her probable risk at 3.44% for perioperative myocardial infarction or cardiac arrest. She is currently optimally medically managed and will receive her usual dialysis on with the planned colonoscopy on Friday. Since her hospital admission, she has had no significant arrhythmias and currently remains in a paced rhythm. Holding warfarin in anticipation of procedure. (2) Idiopathic cardiomyopathy: Clinically stable. (3) End-stage renal disease (ESRD): Receiving dialysis (4) Biventricular ICD (implantable cardioverter-defibrillator) in place: Electrophysiology consult appreciated. The patient did have multiple shocks related to ventricular fibrillation/flutter. Continue amiodarone. (5) Nausea, vomiting and diarrhea: CT of the abdomen indicates thickening and possibly colitis which may be an etiology of her nausea, vomiting and diarrhea. Patient had strep bovis bacteremia which is associated to GI malignancies. For colonoscopy today. Subjective Uneventful night. No new cardiac complaints. Waiting to undergo colonoscopy. Review of Systems Review of Systems: All systems reviewed & are unremarkable except as noted in HPI & below No change Physical Exam Physical Exam: General: no acute distress and stated age Head: normocephalic, no masses, lesions, tenderness or abnormalities Eyes: conjunctiva are pink and non-injected, sclera clear Neck: supple, no adenopathy, no bruits, normal jugular venous pulse, no hepatojugular reflux Chest: normal shape and normal respiratory effort Lungs: clear to auscultation and percussion Cardiac Exam: - regular rate & rhythm, no murmurs gallops or rubs - normal S1, normal S2 Pulses: 2(+) throughout Abdomen: abdomen soft, non-tender, no abnormal masses and no hepatosplenomegaly Musculoskeletal: no gait disturbance, no joint inflammation, no deforming arthritis Extremities: no edema and no cyanosis Neuro: grossly normal exam Results & Data Vital Signs (Past 12 Hours) Vital Signs Temp Pulse Resp BP Pulse Ox 11/06/18 07:39 37.1 C 59 L 20 184/70 H 97 11/06/18 03:16 36.9 C 67 22 190/69 H 95 11/05/18 23:16 36.5 C 60 24 176/66 H 98 Laboratory Results Laboratory Results - last 24 hr 11/05/18 11/05/18 11/05/18 11:26 16:16 20:20 PT INR Sodium Potassium Chloride Carbon Dioxide Anion Gap BUN Creatinine Est Cr Clr Drug Dosing Est GFR ( Amer) Est GFR (Non-Af Amer) BUN/Creatinine Ratio Glucose POC Glucose 98 97 120 H Calcium Magnesium Specimen Hemolysis 11/05/18 11/06/18 11/06/18 23:28 05:41 05:41 PT 17.9 H INR 1.8 H Sodium 134 L Potassium 4.2 D Chloride 98 Carbon Dioxide 26 Anion Gap 11.0 BUN 11 D Creatinine 3.47 H D Est Cr Clr Drug Dosing 13.4 Est GFR ( Amer) 14.4 Est GFR (Non-Af Amer) 12.4 BUN/Creatinine Ratio 3.1 L Glucose 115 H POC Glucose 119 H Calcium 8.7 Magnesium 2.1 Specimen Hemolysis 11/06/18 06:18 PT INR Sodium Potassium Chloride Carbon Dioxide Anion Gap BUN Creatinine Est Cr Clr Drug Dosing Est GFR ( Amer) Est GFR (Non-Af Amer) BUN/Creatinine Ratio Glucose POC Glucose 113 H Calcium Magnesium Specimen Hemolysis Medications Administered Current Inpatient Medications Amiodarone HCl (Cordarone) 200 mg PO DAILY [facility] Stop: 11/30/18 08:59 Last Admin: 11/05/18 14:29 Dose: 200 mg Documented by: Calcium Acetate (Phoslo) 1,334 mg PO TIDM DANY Stop: 11/30/18 07:59 Last Admin: 11/05/18 16:53 Dose: 1,334 mg Documented by: Carvedilol (Coreg) 50 mg PO BID DANY Stop: 12/05/18 20:59 Last Admin: 11/05/18 20:47 Dose: 50 mg Documented by: Dextrose (Dextrose 50%) 25 - 50 ml IV UD PRN; Protocol PRN Reason: Hypoglycemia Protocol Stop: 11/29/18 19:14 Glucagon (Glucagen) 1 mg IM UD PRN; Protocol PRN Reason: Hypoglycemia Protocol Stop: 11/29/18 19:14 Glucose (Glucose 40%) 15 - 30 gm PO UD PRN; Protocol PRN Reason: Hypoglycemia Protocol Stop: 11/29/18 19:14 Glucose (Dex4 Glucose) 4 - 8 tabs PO UD PRN; Protocol PRN Reason: Hypoglycemia Protocol Stop: 11/29/18 19:14 Hydralazine HCl (Apresoline) 25 mg PO TID DANY Stop: 12/05/18 20:59 Last Admin: 11/05/18 20:47 Dose: 25 mg Documented by: Acetaminophen (Ofirmev) 1,000 mg in 100 mls @ 400 mls/hr IV Q8H PRN PRN Reason: Pain Stop: 11/30/18 09:44 Last Infusion: 10/31/18 22:23 Dose: Infused Documented by: Promethazine HCl 12.5 mg/ (Sodium Chloride) 50.5 mls @ 202 mls/hr IV Q6H PRN PRN Reason: Nausea And Vomiting Stop: 12/01/18 18:21 Last Infusion: 11/01/18 19:15 Dose: Infused Documented by: Ceftriaxone Sodium 2,000 mg/ (Dextrose) 70 mls @ 100 mls/hr IV DAILY@1800 DANY; Protocol Stop: 11/16/18 17:59 Last Infusion: 11/05/18 17:35 Dose: Infused Documented by: Insulin Aspart (Novolog Flexpen) 0 units SC Q6 DANY; Protocol Stop: 12/06/18 05:59 Last Admin: 11/06/18 06:24 Dose: Not Given Documented by: Insulin Glargine (Lantus Solostar Pen) 7 units SQ QPM DANY; Protocol Stop: 12/06/18 16:59 Lidocaine/Prilocaine (Emla 2.5%) 1 ea EXT PRN PRN PRN Reason: DIALYSIS Stop: 11/29/18 18:20 Lorazepam (Ativan) 0.5 mg PO Q8 PRN PRN Reason: Anxiety Stop: 12/02/18 17:49 Miscellaneous (Carbohydrates For Hypoglycemia) 15 - 30 gm PO UD PRN PRN Reason: Hypoglycemia Treatment Stop: 11/29/18 19:14 Miscellaneous Information (Consult Glycemic Management Pharmacy) 1 ea N/A UD PRN PRN Reason: Consult Stop: 11/29/18 18:52 Morphine Sulfate (Morphine Sulfate) 0.5 mg IV Q4H PRN PRN Reason: Pain Stop: 11/13/18 18:20 Last Admin: 11/03/18 21:42 Dose: 0.5 mg Documented by: Polyethylene Glycol (Miralax Powder Packet) 17 gm PO DAILY [facility] Stop: 12/04/18 15:14 Last Admin: 11/05/18 09:30 Dose: 17 gm Documented by: Ranitidine HCl (Zantac) 150 mg PO BID [facility] Stop: 12/01/18 20:59 Last Admin: 11/05/18 20:47 Dose: 150 mg Documented by: Torsemide (Demadex) 20 mg PO DAILY [facility] Stop: 11/30/18 08:59 Last Admin: 11/05/18 14:02 Dose: 20 mg Documented by: Warfarin Sodium (Coumadin) 4 mg PO DAILY@1600 [facility] Stop: 11/29/18 18:59 Last Admin: 10/30/18 21:41 Dose: 4 mg Documented by:
--- NOTE | 2018-11-06 08:28 | Pharmacy Report ---
Pharmacy Glycemic Short Note 2 - Date of Service November 06, 2018 - Glycemic Short BSG Results (Last 24 hours): 11/05/18 11/05/18 11/05/18 11:26 16:16 20:20 Glucose POC Glucose 98 97 120 H 11/05/18 11/06/18 11/06/18 23:28 05:41 06:18 Glucose 115 H POC Glucose 119 H 113 H OUTPATIENT ANTIDIABETIC REGIMEN: * Lantus 20 units QPM * Novolog 12 units TID with meals * Patient's A1c not obtained. This would be unreliable in ESRD patients d/t interactions between the A1c analyzing technique and high levels of urea in ESRD, reduced RBC life span, iron deficiency anemia, and EPO administration. HbA1c > 7.5% in ESRD patient may overestimate the extent of hyperglycemia in ESRD patients. ASSESSMENT 11/06 * Ms. Villar received ZERO units of insulin yesterday (compared to 24 units the day prior) * She is currently NPO for an EGD/colonoscopy today * Fasting = 115 mg/dL * Postprandial BSGs on the lower side * In terms of basal requirements, it appears that she's needing an average of 7 units (with 15 units and then held days). Will schedule this dose instead of providing a scaled dose. 11/05 * Patient received total of 24 units of insulin yesterday; 15 units of which was basal Lantus. * Fasting BSG = 80 indicates she received slightly too much Lantus yesterday. Decreased Lantus and moved dose based on scale to HS. * Patient got Hemodialysis today; lunch BSG = 98. Typically lower BSGs reported in this patient on HD days. * Novolog CF/CR loosened today based on low BSGs. She may need tightened back to CF/CR = 25/10 tomorrow (non-hemodialysis day). 11/04: * Patient received total of 11 units of insulin yesterday and all of this was correctional + prandial. * HS BSG was 79; so no lantus was given per provider. * Fasting BSG = 124 and lunch = 170 today. Patient is basal deficient; therefore Lantus 15 units was added this afternoon. * Novolog CR was loosened to 10 since patient is not eating very well (only ate 15 gm for breakfast and 22 gm for lunch) and since Lantus was resumed. 4-22: * Patient received total of 35 units of insulin yesterday, of which 25 units were basal * Fasting this am within range at 113 mg/dL - will continue scale for tonight as that is when patient takes insulin at home * BSGs w/in range - continue same CF/CR -21: * 73 yo F with T2DM admitted with sepsis/GPC bacteremia 2nd possible GI or SST infection * BSG's better controlled yesterday. Was elevated to 229 mg/dL at HS, but ? if patient consumed CHO when diet was ordered @ dinner time and CHO not covered. Novolog already ordered at relatively tight parameters for weight. Will slig htly tighten today 2nd persistent post-prandial elevation to 219 mg/dL at lunch today * AM fasting BSG elevated to 200 mg/dL - will give one time dose of 10 units this AM and continue with scale in PM PLAN FOR INPATIENT GLYCEMIC CONTROL: * Basal insulin: decrease and provide set dose based on ave of basal doses * Lantus 7 units qHS - 1st dose w/ dinner tonight as she didn't receive anything yesterday * Bolus insulin - no change * NovoLog per scale ACHS or Q6hrs while NPO * Goal Range: Low 120 mg/dL - High 160 mg/dL * Correction Factor: 30 mg/dL/unit * Nutritional / Prandial insulin per carb ratio of 1 unit per 12 grams CHO consumed PLAN FOR DISCHARGE: * Home insulin regimen reported: Lantus 20 units QPM; Novolog 12 units TID with meals. * Recommend patient be discharged on their home insulin regimen as long as she was not reporting significant low BSGs or hyperglycemia.
[2018-11-06] MEDS ORDERED: PHYTONADIONE 2.5 MG in SODIUM CHLORIDE 0.9% 50 ML IV ONE (08:41)
[2018-11-06] MEDS: CALCIUM ACETATE 667 MG CAP PO SCH ×3 (08:49→17:00)
[2018-11-06] MEDS: POLYETHYLENE (MIRALAX) 17 GM PACK PO SCH (08:52)
[2018-11-06] MEDS: AMIODARONE 200 MG TAB PO SCH (08:54)
[2018-11-06] MEDS: CARVEDILOL 25 MG TAB PO SCH ×2 (08:54→20:17)
[2018-11-06] MEDS: TORSEMIDE 10 MG TAB PO SCH (08:55)
--- NOTE | 2018-11-06 09:30 | Nephrology Progress Note ---
Date of Service November 06, 2018 Assessment & Plan (1) End-stage renal disease (ESRD): Patient with ESRD on dialysis Friday. She tolerated dialysis well yesterday with net UF of 2.5 L. Next HD will be on Friday for 4 hours and net UF of 2.5 L. (2) Gram-positive cocci bacteremia: Due to Streptococcus bovis. Patient is receiving ceftriaxone per primary team and ID. Renally dose medications for GFR less than 20. She is planned for colonoscopy friday. Patient can potentially receive antibiotics with dialysis but will need an antibiotic which can be dosed 3 times a week. If patient needs daily antibiotics, consider midline catheter. (3) Anemia of renal disease: Patient with anemia due to renal disease. Recent hemoglobin of 10, will give 10,000 units of Epogen with dialysis tomorrow. (4) HTN (hypertension): Her blood pressure is above target. Continue current regimen. Hold morning BP meds pre HD on dialysis days. Subjective ESRD patient seen in follow-up. She tolerated dialysis well yesterday with net UF of 2.5 L. She denies shortness of breath. She has been undergoing bowel prep last night and scheduled for colonoscopy today. Review of Systems Review of Systems: All systems reviewed & are unremarkable except as noted in HPI & below Physical Exam Physical Exam: General exam: Appears comfortable, no acute distress HEENT: Pupils are equal and reactive to light Neck: No JVD, neck is supple trachea is midline Respiratory system: Clear breath sounds bilaterally. Gastrointestinal: Abdomen is soft, non distended, non tender, bowel sounds are present CVS: Regular rate and rhythm. No murmurs, rubs or gallops Musculoskeletal: No joint or muscle tenderness Extremities: Non tender, no edema, peripheral pulses are present Neuro: Oriented, no tremors, no focal neurological deficits Skin: No rashes Access: Left forearm AV fistula with good bruit Results & Data Vital Signs (Past 12 Hours) Vital Signs Temp Pulse Resp BP Pulse Ox 11/06/18 07:39 37.1 C 59 L 20 184/70 H 97 11/06/18 03:16 36.9 C 67 22 190/69 H 95 11/05/18 23:16 36.5 C 60 24 176/66 H 98 Laboratory Results Laboratory Results - last 24 hr 11/05/18 11/05/18 11/05/18 11:26 16:16 20:20 PT INR Sodium Potassium Chloride Carbon Dioxide Anion Gap BUN Creatinine Est Cr Clr Drug Dosing Est GFR ( Amer) Est GFR (Non-Af Amer) BUN/Creatinine Ratio Glucose POC Glucose 98 97 120 H Calcium Magnesium Specimen Hemolysis 11/05/18 11/06/18 11/06/18 23:28 05:41 05:41 PT 17.9 H INR 1.8 H Sodium 134 L Potassium 4.2 D Chloride 98 Carbon Dioxide 26 Anion Gap 11.0 BUN 11 D Creatinine 3.47 H D Est Cr Clr Drug Dosing 13.4 Est GFR ( Amer) 14.4 Est GFR (Non-Af Amer) 12.4 BUN/Creatinine Ratio 3.1 L Glucose 115 H POC Glucose 119 H Calcium 8.7 Magnesium 2.1 Specimen Hemolysis 11/06/18 06:18 PT INR Sodium Potassium Chloride Carbon Dioxide Anion Gap BUN Creatinine Est Cr Clr Drug Dosing Est GFR ( Amer) Est GFR (Non-Af Amer) BUN/Creatinine Ratio Glucose POC Glucose 113 H Calcium Magnesium Specimen Hemolysis (1) HTN (hypertension) Hypertension type: unspecified Qualified Code(s): I10 - Essential (primary) hypertension
--- NOTE | 2018-11-06 09:36 | History & Physical Bridge Note ---
Date of Service November 06, 2018 History & Physical Bridge Note I have examined the patient, reviewed the History & Physical and in the interval since the performance of the History & Physical I have noted the following changes of clinical significance: no changes noted Supervising Physician Co-Signing Physician Notes EGD for anemia Colon for strep bovis bacteremia
--- NOTE | 2018-11-06 09:51 | Anesthesiology Consultation ---
Date of Service November 06, 2018 Assessment & Plan (1) Encounter for pre-operative examination: Chart Review Chart Review: Acceptable Risk for Surgery and Patient NOT seen in Pre Admission Testing Consults Requested none ASA ASA4 Proposed Anesthesia Anesthesia Type: MAC Risk / Benefits Reviewed With: PT / POA / Parent / Guardian, Accepts Plan and Informed Consent Obtained NPO Date Last Intake of Fluids: 11/05/18 Time Last Intake of Fluids: 23:00 Date Last Intake of Solids: 11/04/18 Time Last Intake of Solids: 12:00 History Surgery Operation Date: 11/06/18 08:30 Proposed Procedures p Colonoscopy EGD Dr. Angelita Goldstein M.D. Height/Weight Height: 5 ft 2 in Weight: 72 kg Allergies Allergy/AdvReac Type Severity Reaction Status Date / Time adhesive Allergy Unknown RXN TO Verified 10/30/18 14:04 ADHESIVE ON NITRO PATCH strawberry Allergy Unknown UNKNOWN Verified 10/30/18 14:04 DESIREE Inhibitors AdvReac Mild COUGH Verified 10/30/18 14:04 diphenhydramine AdvReac Mild VERY WEAK, Verified 10/30/18 14:04 CHF lisinopril AdvReac Mild COUGH Verified 10/30/18 14:04 nitroglycerin AdvReac Mild HEADACHE/NA Verified 10/30/18 14:04 USEA Sulfa (Sulfonamide AdvReac Mild "KNOCKS ME Verified 10/30/18 14:04 Antibiotics) OUT" amlodipine AdvReac Unknown RETAIN Verified 10/30/18 14:04 FLUID Medications Home Medications Medication Instructions Recorded Confirmed Last Taken amiodarone 200 mg PO DAILY 10/30/18 10/30/18 Unknown aspirin 81 mg PO DAILY 10/30/18 10/30/18 Unknown atorvastatin 40 mg PO HS 10/30/18 10/30/18 Unknown calcium acetate 2 cap PO UD 10/30/18 10/30/18 Unknown carvedilol 50 mg PO BID 10/30/18 10/30/18 Unknown hydralazine 25 mg PO BID 10/30/18 10/30/18 Unknown insulin aspart U-100 [Novolog 0 unit SUBCUT UD 10/30/18 10/30/18 Unknown Flexpen U-100 Insulin] insulin glargine [Lantus Solostar 20 units SUBCUT PM 10/30/18 10/30/18 Unknown U-100 Insulin] ranitidine HCl 150 mg PO BID 10/30/18 10/30/18 Unknown torsemide 20 mg PO DAILY 10/30/18 10/30/18 Unknown warfarin 4 mg PO PM 10/30/18 10/30/18 Unknown Active Medications Generic Name Dose Route Start Last Admin Trade Name Freq PRN Reason Stop Dose Admin Amiodarone HCl 200 mg 10/31/18 09:00 11/06/18 08:54 Cordarone PO 11/30/18 08:59 200 mg DAILY DANY Administration Calcium Acetate 1,334 mg 10/31/18 08:00 11/06/18 08:49 Phoslo PO 11/30/18 07:59 Not Given TIDM DANY Carvedilol 50 mg 11/05/18 21:00 11/06/18 08:54 Coreg PO 12/05/18 20:59 50 mg BID DANY Administration Hydralazine HCl 25 mg 11/05/18 21:00 11/06/18 08:54 Apresoline PO 12/05/18 20:59 25 mg TID DANY Administration Acetaminophen 1,000 mg in 100 mls @ 400 mls/hr 10/31/18 09:45 10/31/18 22:23 Ofirmev IV 11/30/18 09:44 Infused Q8H PRN Infusion Pain Promethazine HCl 12.5 mg/ 50.5 mls @ 202 mls/hr 11/01/18 18:22 11/01/18 19:15 Sodium Chloride IV 12/01/18 18:21 Infused Q6H PRN Infusion Nausea And Vomiting Ceftriaxone Sodium 2,000 mg/ 70 mls @ 100 mls/hr 11/02/18 18:00 11/05/18 17:35 Dextrose IV 11/16/18 17:59 Infused DAILY@1800 DANY Infusion Protocol Insulin Aspart 0 units 11/06/18 06:00 11/06/18 06:24 Novolog Flexpen SC 12/06/18 05:59 Not Given Q6 [facility] Protocol Morphine Sulfate 0.5 mg 10/30/18 18:21 11/03/18 21:42 Morphine Sulfate IV 11/13/18 18:20 0.5 mg Q4H PRN Administration Pain Polyethylene Glycol 17 gm 11/04/18 15:15 11/06/18 08:52 Miralax Powder Packet PO 12/04/18 15:14 Not Given DAILY [facility] Ranitidine HCl 150 mg 11/01/18 21:00 11/06/18 08:54 Zantac PO 12/01/18 20:59 150 mg BID DANY Administration Torsemide 20 mg 10/31/18 09:00 11/06/18 08:55 Demadex PO 11/30/18 08:59 20 mg DAILY DANY Administration Warfarin Sodium 4 mg 10/30/18 19:00 10/30/18 21:41 Coumadin PO 11/29/18 18:59 4 mg DAILY@1600 DANY Administration Past Medical History Medical History GERD (gastroesophageal reflux disease) (Chronic) Diabetes mellitus, type II (Chronic) Hx of supraventricular tachycardia (Chronic) Paroxysmal atrial fibrillation (Chronic) Idiopathic cardiomyopathy (Chronic) History of hysterectomy (Chronic) 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) Hypothermia (Resolved 07/24/13) Hypertensive urgency (Resolved) Bacteremia (Resolved) CHF NYHA class III (Chronic) Gram-positive bacteremia (Resolved) Depression (Chronic) Anxiety (Chronic) 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) Degenerative cervical disc (Chronic) Slow transit constipation (Chronic) PVD (peripheral vascular disease) (Chronic) Proteinuria (Chronic) Hyperparathyroidism (Chronic) Biventricular ICD (implantable cardioverter-defibrillator) in place (Chronic) H/O TIA (transient ischemic attack) and stroke (Chronic) ESRD (end stage renal disease) on dialysis (Chronic) Hip fracture, left (Resolved) AV graft malfunction (Resolved) Bleeding from dialysis shunt (Resolved) Cardiomegaly (Chronic 11/07/11) MAROGT (acute kidney injury) (Acute) CKD (chronic kidney disease) (Chronic) HTN (hypertension) (Chronic) Past Family History Family History Other Coronary heart disease Diabetes Past Surgical History Surgical History History of appendectomy (Chronic) S/P pericardial surgery (Chronic) H/O dilation and curettage (Chronic) Social History Smoking Status: Never smoker Hx Alcohol Use: No Hx Substance Use: No Physical Exam Vital Signs Last Vital Signs Temp 36.9 C 11/06/18 09:34 Pulse 62 11/06/18 09:34 Resp 18 11/06/18 09:34 BP 174/65 H 11/06/18 09:34 Pulse Ox 94 11/06/18 09:34 Testing Laboratory Results 11/05/18 05:53 11/06/18 05:41 PT 17.9 Seconds (9.0-12.0) H 11/06/18 05:41 INR 1.8 (0.9-1.1) H 11/06/18 05:41 Urine Color Dark Yellow 11/02/18 05:00 Urine Appearance Turbid (Clear) H 11/02/18 05:00 Urine pH 5.0 (4.5-7.5) 11/02/18 05:00 Ur Specific Metter 1.022 (1.000-1.030) 11/02/18 05:00 Urine Protein 2+ (Negative) H 11/02/18 05:00 Urine Glucose (UA) Trace (Negative) H 11/02/18 05:00 Urine Ketones Trace (Negative) H 11/02/18 05:00 Urine Nitrite Positive (Negative) H 11/02/18 05:00 Ur Leukocyte Esterase 3+ (Negative) H 11/02/18 05:00 Urine WBC (Auto) >30 /hpf (0-5) H 11/02/18 05:00 Urine RBC (Auto) 0-4 /hpf (0-4) 11/02/18 05:00 U Hyaline Cast (Auto) 1-5 /lpf (0-5) 11/02/18 05:00 U Epithel Cells (Auto) >30 /lpf (0-5) H 11/02/18 05:00 Urine Bacteria (Auto) Negative (Negative) 11/02/18 05:00 10/31/18 12:26 Blood Culture - Final Blood No growth 10/31/18 12:23 Blood Culture - Final Blood No growth 11/02/18 05:00 Urine Culture - Final Urine,Clean Catch No growth - less than 1,000 colonies/mL. 10/31/18 06:40 Shiga Toxin Test - Final Stool Stool Culture - Final No Salmonella isolated, No Shigella isolated, No Campylobacter jejuni isolated. 10/30/18 20:43 Blood Culture - Final Blood Streptococcus bovis 10/30/18 20:34 Blood Culture - Final Blood Streptococcus bovis 11/06/18 11/05/18 06:18 23:28 POC Glucose 113 H 119 H
[2018-11-06] MEDS ORDERED: ePHEDrine sulfate 50 MG/ML AMP IV PRN (09:56)
[2018-11-06] MEDS ORDERED: ATROPINE SULFATE 0.1 MG/ML 10ML SYR IV PRN (09:56)
--- NOTE | 2018-11-06 11:55 | GI REPORT ---
Patient Name: Ellie Villar Procedure Date: 11/06/2018 10:23 AM Date of : 1945 Admit Type: Inpatient Age: 73 Gender: Female Attending MD: Ana Lilia Goldstein M.d. Procedure: Upper GI endoscopy Providers: Ana Lilia Goldstein M.d. Referring MD: Manish Hebert Md Indications: Iron deficiency anemia Medicines: Propofol per Anesthesia Complications: No immediate complications. Estimated Blood Loss: Estimated blood loss was minimal. Procedure: Pre-Anesthesia Assessment: - Patient identification and proposed procedure were verified prior to the procedure by the physician and the nurse. The procedure was verified in the pre-procedure area. - Prior to the procedure, a History and Physical was performed, and patient medications, allergies and sensitivities were reviewed. The patient's tolerance of previous anesthesia was reviewed. - The risks and benefits of the procedure and the sedation options and risks were discussed with the patient. All questions were answered and informed consent was obtained. - ASA Grade Assessment: IV - A patient with severe systemic disease that is a constant threat to life. After obtaining informed consent, the endoscope was passed under direct vision. Throughout the procedure, the patient's blood pressure, pulse, and oxygen saturations were monitored continuously. The scope was introduced through the mouth, and advanced to the second part of duodenum. The upper GI endoscopy was accomplished without difficulty. The patient tolerated the procedure well. Findings: The examined esophagus appeared normal. Biopsies were taken with a cold forceps for histology. Verification of patient identification for the specimen was done by the physician and nurse using the patient's name and medical record number. The examined stomach appeared normal. Biopsies were taken with a cold forceps for Helicobacter pylori testing. Verification of patient identification for the specimen was done by the physician and nurse using the patient's name and medical record number. The duodenal bulb and second portion of the duodenum were normal. Biopsies were taken with a cold forceps for histology. Verification of patient identification for the specimen was done by the physician and nurse using the patient's name and medical record number. Impression: - Normal esophagus. Biopsied. - Normal stomach. Biopsied. - Normal duodenal bulb and second portion of the duodenum. Biopsied. Recommendation: - Await pathology results. - Proceed to colonoscopy. Viral Huddleston M.d. 11/06/2018 11:54:58 AM This report has been signed electronically. Note Initiated On: 11/06/2018 10:23 AM Number of Addenda: 0 I attest to the content of the Intraoperative Record and orders documented therein, exceptions below {[id number]}
[2018-11-06] MEDS ORDERED: PROPOFOL IV EMULSION 10 MG/ML 20 ML VIAL IV ONE (11:56)
[2018-11-06] MEDS ORDERED: LIDOCAINE HCL 2% 2 ML VIAL/AMP(20MG/ML) INFIL ONE (11:56)
[2018-11-06] MEDS ORDERED: DESMOPRESSIN ACETATE 22 MCG in SODIUM CHLORIDE 0.9% 50 ML IV ONE (11:59)
--- NOTE | 2018-11-06 12:03 | Hospitalist Progress Note ---
Date of Service November 06, 2018 Assessment & Plan (1) Gram-positive cocci bacteremia: Bacteremia Acute Endocarditis Blood culture: Streptococcus Bovis -To R/O GI malignancy Repeat Blood cultures: No growth to date Continue Ceftriaxone-- Likely needs 4 weeks of IV Abx Appreciate ID/Cardiology Input Heavily calcified valvular annulus formation--MANISH will provide limited information very complex patient--if device needs removal, it will be a very high risk procedure as per Cardiology AICD device interrogation showed multiple AICD shock per and on admission EGD: Normal Colonoscopy: Multiple polyps removed; Internal hemorrhoids Pathology:Pending Appreciate GI help Continue to hold Coumadin today INR:1.8 Continue amiodarone, Coreg Monitor electrolytes May need Vitamin K tmw if INR remains elevated as per GI Monitor H&H (2) Endocarditis: H/O endocarditis which was treated conservatively with several weeks of antibiotics in 2016. Management as above (3) Sepsis: Due to bacteremia, endocarditis continue Abx as above Multiple AICD Shock AICD interrogation shows frequent ventricular fibrillation with multiple AICD shock prior to patient's admission Patient denies symptoms Appreciate input from EP cardiology Device setting adjusted Continue home meds (4) Nausea, vomiting and diarrhea: Stool studies negative Resolved (5) Abdominal pain: Resolved (6) Ascites: (7) Elevated LFTs: Possibly secondary to sepsis-Improving Normalized CT ABD/PELVIS: Small amount of abdominal and pelvic ascites U/S liver mild gallbladder wall thickening 4 mm no evidence of acute cholecystitis: Monitor (8) Weakness: Secondary to above PT/OT (9) Cough: Reported non-productive cough x 1 week Negative influenza PCR CXR: Mild interstitial pulmonary edema and trace bilateral pleural effusions. Cardiomegaly. Improved (10) Elevated troponin: Mild Troponin elevation Secondary to sepsis, in the setting of end-stage renal disease, poor renal clearance Denies chest pain or shortness of breath Paced rhythm on EKG (11) End-stage renal disease (ESRD): On HD on , , Sat Missed Dialysis 10/29/18 Dialysis as per Nephro Appreciate Nephrology help (12) Idiopathic cardiomyopathy: S/P ICD Echo: 04/2018: EF: 40%, mild concentric LVH, moderate dilated RV, severely dilated R atrium, moderate tricupsid regurgitation (13) Paroxysmal atrial fibrillation: Continue on Coreg, Amiodarone Coumadin on hold (14) Hx of supraventricular tachycardia: Continue Coreg, amiodarone (15) Diabetes mellitus, type II: Insulin dependent A1c: 8.7 on 03/2018 Continue Lantus, Novolog sliding scale Glycemic pharmacy consult (16) HTN (hypertension): Stable Continue current meds (17) GERD (gastroesophageal reflux disease): Continue Ranitidine DVT Px: Coumadin held SCDs for now Code Status Full Code Subjective Patient is seen and examined at bedside Patient had EGD/Colonoscopy today Was drowsy after the procedure Offers no complaints currently Denies chest pain, SOB, dizziness, nausea, abd pain Discussed with GI today Review of Systems Review of Systems: All systems reviewed & are unremarkable except as noted in HPI & below Physical Exam Physical Exam: Physical Exam: Vitals signs as noted above General Appearance:Moderately built and nourished, no apparent distress Head: normocephalic, Atraumatic Eyes: normal inspection, EOMI Neck: supple, Trachea midline Respiratory/Chest: Normal breath sounds, CTA Cardiovascular: S1, S2, No murmur Abdomen/GI:Soft, Non tender, Bowel sounds present Extremities/Musculoskelatal:normal inspection, Trace edema Neurologic/Psych:AAOX3, grossly no focal neurological deficits Skin: normal color, warm Results & Data Vital Signs (Past 12 Hours) Vital Signs Temp Pulse Resp BP Pulse Ox 11/06/18 09:34 36.9 C 62 18 174/65 H 94 11/06/18 07:39 37.1 C 59 L 20 184/70 H 97 11/06/18 03:16 36.9 C 67 22 190/69 H 95 Laboratory Results [facility] 11/06/18 05:41 Sodium 134 L Potassium 4.2 D Chloride 98 Carbon Dioxide 26 BUN 11 D Creatinine 3.47 H D Glucose 115 H Calcium 8.7 (1) Diabetes mellitus, type II Chronic kidney disease stage: on chronic dialysis Diabetes mellitus complication detail: with chronic kidney disease Diabetes mellitus complication status: with kidney complications Diabetes mellitus terminal makeup operator insulin use: unspecified terminal makeup operator insulin use status Qualified Code(s): E11.22 - 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 diabetic chronic kidney disease; N18.6 - End stage renal disease; Z99.2 - Dependence on renal dialysis (2) Ascites Ascites type: other type Qualified Code(s): R18.8 - Other ascites (3) Endocarditis Chronicity: unspecified Endocarditis type: infective Infective endocarditis organism: bacterial Qualified Code(s): I33.0 - Acute and subacute infective end ocarditis (4) Sepsis Sepsis type: Streptococcus, other Qualified Code(s): A40.8 - Other streptococcal sepsis (5) GERD (gastroesophageal reflux disease) Esophagitis presence: esophagitis presence not specified Qualified Code(s): K21.9 - Gastro-esophageal reflux disease without esophagitis (6) Abdominal pain Abdominal location: periumbilical Qualified Code(s): R10.33 - Periumbilical pain (7) HTN (hypertension) Hypertension type: unspecified Qualified Code(s): I10 - Essential (primary) hypertension
--- NOTE | 2018-11-06 12:05 | GI REPORT ---
Patient Name: Ellie Villar Procedure Date: 11/06/2018 10:26 AM Date of : 1945 Admit Type: Inpatient Age: 73 Gender: Female Attending MD: Ana Lilia Goldstein M.d. Procedure: Colonoscopy Providers: Ana Lilia Goldstein M.d. Referring MD: Manish Hebert Md Indications: Positive blood cultures (strep bovis bacteremia) Medicines: Propofol per Anesthesia Complications: No immediate complications. Estimated Blood Loss: Estimated blood loss was minimal. Procedure: Pre-Anesthesia Assessment: - Patient identification and proposed procedure were verified prior to the procedure by the physician and the nurse. The procedure was verified in the pre-procedure area. - Prior to the procedure, a History and Physical was performed, and patient medications, allergies and sensitivities were reviewed. The patient's tolerance of previous anesthesia was reviewed. - The risks and benefits of the procedure and the sedation options and risks were discussed with the patient. All questions were answered and informed consent was obtained. - ASA Grade Assessment: IV - A patient with severe systemic disease that is a constant threat to life. After I obtained informed consent, the scope was passed under direct vision. Throughout the procedure, the patient's blood pressure, pulse, and oxygen saturations were monitored continuously. The scope was introduced through the anus and advanced to the cecum, identified by appendiceal orifice and ileocecal valve. The colonoscopy was performed with difficulty due to poor endoscopic visualization, a redundant colon, significant looping and a tortuous colon. Successful completion of the procedure was aided by using manual pressure, straightening and shortening the scope to obtain bowel loop reduction and lavage. Findings: A 15 mm polyp was found in the ascending colon. The polyp was sessile and was removed piecemeal with a hot snare. Polyp resection was complete. The resected tissue was retrieved using a [employer]. Verification of patient identification for the specimen was done by the physician and nurse using the patient's name and medical record number. Two sessile polyps were found in the ascending colon. The polyps were 10 to 12 mm in size and these polyps were removed with a hot snare. Resection and retrieval were complete. Verification of patient identification for the specimen was done by the physician and nurse using the patient's name and medical record number. Two 10 mm polyps were found in the descending colon. The polyps were sessile and were removed with a cold snare. Resection and retrieval were complete. Verification of patient identification for the specimen was done by the physician and nurse using the patient's name and medical record number. Internal hemorrhoids were found. Impression: - One 15 mm polyp in the ascending colon, removed piecemeal with a hot snare. Resected tissue retrieved. - Two 10 to 12 mm polyps in the ascending colon, removed with a hot snare. Resected and retrieved. - Two 10 mm polyps were in the descending colon, removed with a cold snare. Resected and retrieved. - Internal hemorrhoids. Recommendation: - Repeat colonoscopy for surveillance based on pathology results. Ana Lilia Goldstein M.D. Ana Lilia Goldstein M.d. 11/06/2018 12:04:47 PM This report has been signed electronically. Note Initiated On: 11/06/2018 10:26 AM Number of Addenda: 0 I attest to the content of the Intraoperative Record and orders documented therein, exceptions below {[id number]}
--- NOTE | 2018-11-06 12:11 | Gastroenterology Progress Note ---
Date of Service November 06, 2018 Supervising Physician Co-Signing Physician Notes EGD normal - no signs of stricture, esophageal, stomach, duodenal biopsies done. Colon was quite challenging due to fair prep, redundant colon, tortuosity. She had multiple polyps removed requiring hot cautery (use of a magnet was applied to her aicd). Path will be pending. Given her Ckdz and also high INR- it would be recommended to hold her coumadin at this time, one unit of FFP, one unit of dose dependent DDAVP post procedure to prevent a post polypectomy bleed. Trend h/h. Her egd/colon were discussed with her in the post operative area. Subjective No acute complaints post procedure Review of Systems Review of Systems: All systems reviewed & are unremarkable except as noted in HPI & below Physical Exam Physical Exam: Lying in bed in no acute disress post procedure Respiratory: normal respiratory effort, lungs clear to auscultation Cardiovascular: RRR, no murmur, no edema Gastrointestinal (Abdomen): normal bowel sounds, soft, nontender, no hepatosplenomegaly Results & Data Vital Signs (Past 12 Hours) Vital Signs Temp Pulse Resp BP Pulse Ox 11/06/18 12:03 63 18 118/55 L 98 11/06/18 09:34 36.9 C 62 18 174/65 H 94 11/06/18 07:39 37.1 C 59 L 20 184/70 H 97 11/06/18 03:16 36.9 C 67 22 190/69 H 95 Laboratory Results INR 1.7 Plt low
[2018-11-06] MEDS ORDERED: SODIUM CHLORIDE 0.9% 250 ML IV PRN (12:18)
--- NOTE | 2018-11-06 13:33 | Anesthesiology Progress Note ---
Date of Service November 06, 2018 Anesthesia Post Procedure Vital Signs Vital Signs: Temp Pulse Pulse Pulse Resp BP Pulse Ox 11/06/18 12:30 60 18 158/75 H 94 11/06/18 12:21 60 18 131/69 95 11/06/18 12:11 60 20 142/64 H 94 11/06/18 12:03 63 18 118/55 L 98 11/06/18 09:34 36.9 C 62 18 174/65 H 94 11/06/18 07:39 37.1 C 59 L 20 184/70 H 97 11/06/18 03:16 36.9 C 67 22 190/69 H 95 11/05/18 23:16 36.5 C 60 24 176/66 H 98 11/05/18 19:12 36.8 C 59 L 18 184/70 H 94 11/05/18 16:00 62 11/05/18 15:10 37.1 C 63 18 185/71 H 92 11/05/18 14:00 62 194/79 H 11/05/18 13:45 37.1 C 60 186/80 H Notes Mental Status: alert / awake / arousable Patient Amnestic to Procedure: Yes Nausea / Vomiting: adequately controlled Pain: adequately controlled Airway Patency, RR, SpO2: stable & adequate BP & HR: stable & adequate Hydration State: stable & adequate Anesthetic Complications: no major complications apparent and Pt Satisfied with anesthetic care
--- NOTE | 2018-11-06 14:21 | Infectious Disease Progress Nt ---
Date of Service November 06, 2018 Assessment & Plan (1) Streptococcus bovis infection: Patient with strep bovis bacteremia/sepsis. Significant association with GI malignancies, for colonoscopy tomorrow. Continue on ceftriaxone. Will likely need 4 weeks of IV antibiotics. Will follow. Subjective Patient seen in follow-up for strep bovis bacteremia. Has completed colonoscopy, several polyps found, no obvious malignancy. Remains afebrile. No other new complaints. Review of Systems Review of Systems: All systems reviewed & are unremarkable except as noted in HPI & below Physical Exam Constitutional: WD/WN, vitals as above + ill appearing and comfortable; no acute distress Eyes: PERRL, conjunctivae normal, anicteric sclerae ENMT: external ear and nose normal, oropharynx normal Neck: trachea midline, no thyromegaly neck nontender Respiratory: normal respiratory effort, lungs clear to auscultation normal percussion; no respiratory distress and does not use accessory muscles Cardiovascular: Rate/Rhythm: regular rate and regular rhythm Heart Sounds: normal S1 and normal S2; no gallop, no murmur and no cardiac rub Vessels: normal peripheral pulses; no JVD Gastrointestinal (Abdomen): normal bowel sounds, soft, nontender, no hepatosplenomegaly Inspection/Auscultation: abdomen normal to inspection and + abdomen distended Percussion/Palpation: + abdomen tender; no hepatosplenomegaly and no abdominal mass Musculoskeletal: no cyanosis or clubbing, extremities motor strength 5/5 Spine: thoracic spine normal to inspection and lumbar spine normal to inspection; no cervical spinal tenderness Skin: no rashes, warm and dry normal turgor; no lesions Neurologic: patellar DTR's 2+ bilat, sensation intact moves all extremities and awake; no focal motor deficits Motor/Sensory: no sensory deficit Psychiatric: A+Ox3, euthymic affect Orientation: cooperative Lymphatic: no cervical or axillary lymphadenopathy no inguinal lymphadenopathy Results & Data Vital Signs (Past 12 Hours) Vital Signs Temp Pulse Resp BP Pulse Ox 11/06/18 12:30 60 18 158/75 H 94 11/06/18 12:21 60 18 131/69 95 11/06/18 12:11 60 20 142/64 H 94 11/06/18 12:03 63 18 118/55 L 98 11/06/18 09:34 36.9 C 62 18 174/65 H 94 11/06/18 07:39 37.1 C 59 L 20 184/70 H 97 11/06/18 03:16 36.9 C 67 22 190/69 H 95 Laboratory Results [facility] 11/06/18 05:41 Sodium 134 L Potassium 4.2 D Chloride 98 Carbon Dioxide 26 BUN 11 D Creatinine 3.47 H D Glucose 115 H Calcium 8.7 Diagnostic Findings Microbiology 10/31/18 12:26 Blood Blood Culture - Final No growth 10/31/18 12:23 Blood Blood Culture - Final No growth 11/02/18 05:00 Urine,Clean Catch Urine Culture - Final No growth - less than 1,000 colonies/mL. 10/31/18 06:40 Stool Shiga Toxin Test - Final 10/31/18 06:40 Stool Stool Culture - Final No Salmonella isolated, No Shigella isolated, No Campylobacter jejuni isolated. 10/30/18 20:43 Blood Blood Culture - Final Streptococcus bovis 10/30/18 20:34 Blood Blood Culture - Final Streptococcus bovis
[2018-11-06] MEDS ORDERED: INSULIN GLARGINE SOLOSTAR 100 UNITS/ML 3 ML PEN SQ SCH (17:00)
[2018-11-06] MEDS: INSULIN GLARGINE SOLOSTAR 100 UNITS/ML 3 ML PEN SQ SCH (17:45)
[2018-11-06] MEDS: cefTRIAXone SODIUM 2,000 MG in DEXTROSE 5% 50 ML IV SCH (17:47)
[2018-11-06 20:42] LABS: Hematocrit (blood only) 30.4 % (37-47); Hemoglobin 10.1 g/dL (12.0-16.0)
[2018-11-06] MEDS ORDERED: Nursing to Pharmacy Communication ONE (20:50)
[2018-11-06] MEDS: MoRPHine SULFATE 2 MG/ML CARP IV PRN (23:38)
[2018-11-07 06:00] LABS: Hematocrit (blood only) 29.8 % (37-47); Hemoglobin 9.8 g/dL (12.0-16.0); Mean Corpuscular Hgb Conc 32.9 g/dL (32-36); Mean Corpuscular Volume 98.3 fL (80-100); Mean Platelet Volume 12.2 fL (7.4-10.4); Platelet Count 79 K/uL (130-400); RDW Coefficient of Variation 15.1 % (11.5-14.5); RDW Standard Deviation 50.9 fL (36.4-46.3); Red Blood Count 3.03 M/uL (4.2-5.4); White Blood Count 6.11 K/uL (4.8-10.8)
[2018-11-07 06:12] LABS: INR 1.9 (0.9-1.1); Prothrombin Time 18.3 Seconds (9.0-12.0)
[2018-11-07 06:46] LABS: Calcium 8.4 mg/dl (8.5-10.1); Creatinine Clr Calc Pharmacy 9.8 ml/min; Est GFR (African American) 9.8; Est GFR (Non-African American) 8.4; Potassium 4.4 mmol/L (3.5-5.1)
[2018-11-07] MEDS ORDERED: SODIUM CHLORIDE 0.9% 1000ML 1,000 ML IV PRN (07:49)
[2018-11-07] MEDS ORDERED: EPOETIN ALFA 10,000 UNITS/ML VIAL IV SCH (08:00)
[2018-11-07] MEDS: CALCIUM ACETATE 667 MG CAP PO SCH ×3 (08:02→16:43)
[2018-11-07] MEDS: POLYETHYLENE (MIRALAX) 17 GM PACK PO SCH (08:03)
[2018-11-07] MEDS ORDERED: HydrALAZINE HCL 20 MG/ML VIAL IV PRN (08:03)
[2018-11-07] MEDS: INSULIN ASPART 100 UNITS/ML 3 ML PEN SC SCH ×4 (08:05→21:21)
[2018-11-07 08:13] LABS: Hematocrit (blood only) 30.5 % (37-47); Hemoglobin 10.3 g/dL (12.0-16.0)
[2018-11-07] MEDS ORDERED: PHYTONADIONE 5 MG TAB PO STA (08:17)
[2018-11-07] MEDS: INSULIN GLARGINE SOLOSTAR 100 UNITS/ML 3 ML PEN SQ SCH (08:58)
[2018-11-07] MEDS ORDERED: INSULIN GLARGINE SOLOSTAR 100 UNITS/ML 3 ML PEN SQ SCH (09:00)
--- NOTE | 2018-11-07 09:00 | Gastroenterology Progress Note ---
Date of Service November 07, 2018 Supervising Physician Co-Signing Physician Notes 73 yo fm with strep bovis bacteremia s/p egd colon on 11/06/18. Her colon had multiple large polyps that were removed with cautery- ffp and ddavp given x one after to prevent bleeding. She appears to have eaten and had bowel movements without blood. She can likely resume her coumadin probably on Friday. GI will inform her of her pathology results from her egd/colonoscopy and arrange further follow-up regarding those findings for her if needed. It is fine to continue her acid suppression of Rantidine 150 mg po bid. Subjective No acute complaints Sitting in bed Ate a full breakfast tray Slightly loose stools overnite but no blood in the stools Review of Systems Review of Systems: All systems reviewed & are unremarkable except as noted in HPI & below Physical Exam Constitutional: WD/WN, vitals as above Eyes: PERRL, conjunctivae normal, anicteric sclerae Respiratory: normal respiratory effort, lungs clear to auscultation Cardiovascular: RRR, no murmur, no edema Gastrointestinal (Abdomen): normal bowel sounds, soft, nontender, no hepatosplenomegaly Results & Data Vital Signs (Past 12 Hours) Vital Signs Temp Pulse Pulse Pulse Resp BP Pulse Ox 11/07/18 08:51 64 187/82 H 11/07/18 07:16 36.8 C 60 22 200/86 H 95 11/07/18 03:17 37.1 C 61 18 176/71 H 94 11/07/18 02:13 60 11/06/18 23:17 37.0 C 60 18 165/68 H 92 Laboratory Results INR went up by one point
--- NOTE | 2018-11-07 09:13 | Cardiology Progress Note ---
Date of Service November 07, 2018 Assessment & Plan (1) Gram-positive cocci bacteremia: The patient has a previous history of endocarditis which was treated conservatively with several weeks of antibiotics in 2016. Infectious disease and electrophysiology consults appreciated. I reviewed the transthoracic echocardiogram myself along with Dr. Aviles. The patient has heavily calcified valvular annulus formation which is not unexpected in a dialysis patient. Ultrasound whether by transthoracic or transesophageal will unfortunately provide limited information. I would recommend treating for endocarditis at this point with several weeks of antibiotics. She is a very complex patient and if the device requires removal, it will be a very high risk procedure. Strep bovis is associated to GI malignancies. Several polyps removed post colonoscopy pathology is pending. (2) Idiopathic cardiomyopathy: Clinically stable. (3) End-stage renal disease (ESRD): Receiving dialysis (4) Biventricular ICD (implantable cardioverter-defibrillator) in place: Electrophysiology consult appreciated. The patient did have multiple shocks related to ventricular fibrillation/flutter. Continue amiodarone. (5) Nausea, vomiting and diarrhea: EGD was unremarkable. Colonoscopy indicated several polyps that were removed and sent to pathology for analysis. Subjective No new cardiac complaints today. Colonoscopy report noted. Pathology still pending. Review of Systems Review of Systems: All systems reviewed & are unremarkable except as noted in HPI & below Unchanged Physical Exam Physical Exam: General: no acute distress and stated age Head: normocephalic, no masses, lesions, tenderness or abnormalities Eyes: conjunctiva are pink and non-injected, sclera clear Neck: supple, no adenopathy, no bruits, normal jugular venous pulse, no hepatojugular reflux Chest: normal shape and normal respiratory effort Lungs: clear to auscultation and percussion Cardiac Exam: - regular rate & rhythm, no murmurs gallops or rubs - normal S1, normal S2 Pulses: 2(+) throughout Abdomen: abdomen soft, non-tender, no abnormal masses and no hepatosplenomegaly Musculoskeletal: no gait disturbance, no joint inflammation, no deforming arthritis Extremities: no edema and no cyanosis Neuro: grossly normal exam Results & Data Vital Signs (Past 12 Hours) Vital Signs Temp Pulse Pulse Pulse Resp BP Pulse Ox 11/07/18 08:51 64 187/82 H 11/07/18 07:16 36.8 C 60 22 200/86 H 95 11/07/18 03:17 37.1 C 61 18 176/71 H 94 11/07/18 02:13 60 11/06/18 23:17 37.0 C 60 18 165/68 H 92 Laboratory Results Laboratory Results - last 24 hr 11/06/18 11/06/18 11/06/18 12:45 16:27 20:07 WBC RBC Hgb 10.1 L Hct 30.4 L MCV MCH MCHC RDW Std Deviation RDW Coeff of Jacobo Plt Count MPV PT INR Sodium Potassium Chloride Carbon Dioxide Anion Gap BUN Creatinine Est Cr Clr Drug Dosing Est GFR ( Amer) Est GFR (Non-Af Amer) BUN/Creatinine Ratio Glucose POC Glucose 111 H 132 H Calcium 11/06/18 11/07/18 11/07/18 20:42 05:23 05:23 WBC 6.11 RBC 3.03 L Hgb 9.8 L Hct 29.8 L MCV 98.3 MCH 32.3 MCHC 32.9 RDW Std Deviation 50.9 H RDW Coeff of Jacobo 15.1 H Plt Count 79 L MPV 12.2 H PT 18.3 H INR 1.9 H Sodium Potassium Chloride Carbon Dioxide Anion Gap BUN Creatinine Est Cr Clr Drug Dosing Est GFR ( Amer) Est GFR (Non-Af Amer) BUN/Creatinine Ratio Glucose POC Glucose 233 H Calcium 11/07/18 11/07/18 11/07/18 05:23 07:22 07:48 WBC RBC Hgb 10.3 L Hct 30.5 L MCV MCH MCHC RDW Std Deviation RDW Coeff of Jacobo Plt Count MPV PT INR Sodium 131 L Potassium 4.4 Chloride 94 L Carbon Dioxide 27 Anion Gap 10.0 BUN 19 H D Creatinine 4.77 H* D Est Cr Clr Drug Dosing 9.8 Est GFR ( Amer) 9.8 Est GFR (Non-Af Amer) 8.4 BUN/Creatinine Ratio 4.0 L Glucose 175 H POC Glucose 183 H Calcium 8.4 L Medications Administered Current Inpatient Medications Amiodarone HCl (Cordarone) 200 mg PO DAILY [facility] Stop: 11/30/18 08:59 Last Admin: 11/06/18 08:54 Dose: 200 mg Documented by: Calcium Acetate (Phoslo) 1,334 mg PO TIDM [facility]ANY Stop: 11/30/18 07:59 Last Admin: 11/07/18 08:02 Dose: 1,334 mg Documented by: Carvedilol (Coreg) 50 mg PO BID [facility] Stop: 12/05/18 20:59 Last Admin: 11/06/18 20:17 Dose: 50 mg Documented by: Dextrose (Dextrose 50%) 25 - 50 ml IV UD PRN; Protocol PRN Reason: Hypoglycemia Protocol Stop: 11/29/18 19:14 Epoetin Aubrey (Procrit) 10,000 units IV 0800 DANY Stop: 11/07/18 20:00 Glucagon (Glucagen) 1 mg IM UD PRN; Protocol PRN Reason: Hypoglycemia Protocol Stop: 11/29/18 19:14 Glucose (Glucose 40%) 15 - 30 gm PO UD PRN; Protocol PRN Reason: Hypoglycemia Protocol Stop: 11/29/18 19:14 Glucose (Dex4 Glucose) 4 - 8 tabs PO UD PRN; Protocol PRN Reason: Hypoglycemia Protocol Stop: 11/29/18 19:14 Hydralazine HCl (Apresoline) 25 mg PO TID [facility]ANY Stop: 12/05/18 20:59 Last Admin: 11/06/18 20:17 Dose: 25 mg Documented by: Hydralazine HCl (Hydralazine Hcl) 5 mg IV Q6H PRN PRN Reason: Hypertension Stop: 12/07/18 08:14 Acetaminophen (Ofirmev) 1,000 mg in 100 mls @ 400 mls/hr IV Q8H PRN PRN Reason: Pain Stop: 11/30/18 09:44 Last Infusion: 10/31/18 22:23 Dose: Infused Documented by: Promethazine HCl 12.5 mg/ (Sodium Chloride) 50.5 mls @ 202 mls/hr IV Q6H PRN PRN Reason: Nausea And Vomiting Stop: 12/01/18 18:21 Last Infusion: 11/01/18 19:15 Dose: Infused Documented by: Ceftriaxone Sodium 2,000 mg/ (Dextrose) 70 mls @ 100 mls/hr IV DAILY@1800 [facility]; Protocol Stop: 11/16/18 17:59 Last Infusion: 11/06/18 18:29 Dose: Infused Documented by: Sodium Chloride (Nss 1000ml) 1,000 mls @ 0 mls/hr IV .Q0M PRN PRN Reason: For Hemodialysis Use ONLY Stop: 11/07/18 13:48 Insulin Aspart (Novolog Flexpen) 0 units SC ACHS [facility]; Protocol Stop: 12/06/18 20:59 Last Admin: 11/07/18 08:05 Dose: 4 units Documented by: Insulin Glargine (Lantus Solostar Pen) 0 units SQ QPM [facility]; Protocol Stop: 12/06/18 16:59 Last Admin: 11/07/18 08:58 Dose: 4 units Documented by: Insulin Glargine (Lantus Solostar Pen) 4 units SQ QAM [facility]; Protocol Stop: 11/07/18 11:00 Lidocaine/Prilocaine (Emla 2.5%) 1 ea EXT PRN PRN PRN Reason: DIALYSIS Stop: 11/29/18 18:20 Lorazepam (Ativan) 0.5 mg PO Q8 PRN PRN Reason: Anxiety Stop: 12/02/18 17:49 Miscellaneous (Carbohydrates For Hypoglycemia) 15 - 30 gm PO UD PRN PRN Reason: Hypoglycemia Treatment Stop: 11/29/18 19:14 Miscellaneous Information (Consult Glycemic Management Pharmacy) 1 ea N/A UD PRN PRN Reason: Consult Stop: 11/29/18 18:52 Morphine Sulfate (Morphine Sulfate) 0.5 mg IV Q4H PRN PRN Reason: Pain Stop: 11/13/18 18:20 Last Admin: 11/06/18 23:38 Dose: 0.5 mg Documented by: Polyethylene Glycol (Miralax Powder Packet) 17 gm PO DAILY [facility] Stop: 12/04/18 15:14 Last Admin: 11/07/18 08:03 Dose: Not Given Documented by: Ranitidine HCl (Zantac) 150 mg PO BID [facility] Stop: 12/01/18 20:59 Last Admin: 11/07/18 08:03 Dose: 150 mg Documented by: Torsemide (Demadex) 20 mg PO DAILY [facility] Stop: 11/30/18 08:59 Last Admin: 11/06/18 08:55 Dose: 20 mg Documented by: Warfarin Sodium (Coumadin) 4 mg PO DAILY@1600 [facility] Stop: 11/29/18 18:59 Last Admin: 10/30/18 21:41 Dose: 4 mg Documented by:
[2018-11-07] MEDS: TORSEMIDE 10 MG TAB PO SCH (13:12)
[2018-11-07] MEDS: CARVEDILOL 25 MG TAB PO SCH ×2 (13:59→20:08)
[2018-11-07] MEDS: AMIODARONE 200 MG TAB PO SCH (14:00)
--- NOTE | 2018-11-07 14:14 | Pharmacy Report ---
Pharmacy Glycemic Short Note 2 - Date of Service November 07, 2018 - Glycemic Short BSG Results (Last 24 hours): 11/06/18 11/06/18 11/07/18 16:27 20:42 05:23 Glucose 175 H POC Glucose 132 H 233 H 11/07/18 07:22 Glucose POC Glucose 183 H OUTPATIENT ANTIDIABETIC REGIMEN: * Lantus 20 units QPM * Novolog 12 units TID with meals * Patient's A1c not obtained. This would be unreliable in ESRD patients d/t interactions between the A1c analyzing technique and high levels of urea in ESRD, reduced RBC life span, iron deficiency anemia, and EPO administration. HbA1c > 7.5% in ESRD patient may overestimate the extent of hyperglycemia in ESRD patients. ASSESSMENT 11/07 * Fasting BSG elevated at 183 mg/dL. Patient did not receive any basal insulin on 11/05 or 11/06, therefore she is likely basal deficient. Yesterday she was ordered a set dose of Lantus 7 units qHS (starting 11/07 PM). I have continued this dose and gave an extra 4 units this AM x 1. * Post prandial BSGs are mostly at goal. Ellie has been off the floor for HD therefore a lunch BSG was not obtained. 11/06 * Ms. Villar received ZERO units of insulin yesterday (compared to 24 units the day prior) * She is currently NPO for an EGD/colonoscopy today * Fasting = 115 mg/dL * Postprandial BSGs on the lower side * In terms of basal requirements, it appears that she's needing an average of 7 units (with 15 units and then held days). Will schedule this dose instead of providing a scaled dose. PLAN FOR INPATIENT GLYCEMIC CONTROL: * Basal insulin: * Lantus 4 units SQ this morning x 1, then continue Lantus 7 units SQ qHS * Bolus insulin - no change * NovoLog per scale ACHS or Q6hrs while NPO * Goal Range: Low 120 mg/dL - High 160 mg/dL * Correction Factor: 30 mg/dL/unit * Nutritional / Prandial insulin per carb ratio of 1 unit per 12 grams CHO consumed PLAN FOR DISCHARGE: * Home insulin regimen reported: Lantus 20 units QPM; Novolog 12 units TID with meals. * Recommend patient be discharged on their home insulin regimen as long as she was not reporting significant low BSGs or hyperglycemia.
--- NOTE | 2018-11-07 15:51 | Hospitalist Progress Note ---
Date of Service November 07, 2018 Assessment & Plan (1) Gram-positive cocci bacteremia: Bacteremia Acute Endocarditis Blood culture: Streptococcus Bovis -To R/O GI malignancy Repeat Blood cultures: No growth to date Continue Ceftriaxone-- Likely needs 4 weeks of IV Abx Appreciate ID/Cardiology Input Heavily calcified valvular annulus formation--MANISH will provide limited information very complex patient--if device needs removal, it will be a very high risk procedure as per Cardiology AICD device interrogation showed multiple AICD shock per and on admission EGD: Normal Colonoscopy: Multiple polyps removed; Internal hemorrhoids Received Vitamin K, FFP, DDAVP for procedure Pathology:Pending Appreciate GI help Continue to hold Coumadin-- Likely to resume on Friday if Hb stable INR:1.9 Continue amiodarone, Coreg Monitor electrolytes Monitor H&H No bleeding issues currently Continue ranitidine BID Plan for PICC/ Central line as able (2) Endocarditis: H/O endocarditis which was treated conservatively with several weeks of antibiotics in 2016. Management as above (3) Sepsis: Due to bacteremia, endocarditis continue Abx as above Multiple AICD Shock AICD interrogation shows frequent ventricular fibrillation with multiple AICD shock prior to patient's admission Patient denies symptoms Appreciate input from EP cardiology Device setting adjusted Continue home meds (4) Nausea, vomiting and diarrhea: Stool studies negative Resolved (5) Abdominal pain: Resolved (6) Ascites: (7) Elevated LFTs: Possibly secondary to sepsis-Improving Normalized CT ABD/PELVIS: Small amount of abdominal and pelvic ascites U/S liver mild gallbladder wall thickening 4 mm no evidence of acute cholecystitis: Monitor (8) Weakness: Secondary to above PT/OT (9) Cough: Reported non-productive cough x 1 week Negative influenza PCR CXR: Mild interstitial pulmonary edema and trace bilateral pleural effusions. Cardiomegaly. Improved (10) Elevated troponin: Mild Troponin elevation Secondary to sepsis, in the setting of end-stage renal disease, poor renal clearance Denies chest pain or shortness of breath Paced rhythm on EKG (11) End-stage renal disease (ESRD): On HD on , , Sat Missed Dialysis 10/29/18 Dialysis as per Nephro Appreciate Nephrology help (12) Idiopathic cardiomyopathy: S/P ICD Echo: 04/2018: EF: 40%, mild concentric LVH, moderate dilated RV, severely dilated R atrium, moderate tricupsid regurgitation (13) Paroxysmal atrial fibrillation: Continue on Coreg, Amiodarone Coumadin on hold (14) Hx of supraventricular tachycardia: Continue Coreg, amiodarone (15) Diabetes mellitus, type II: Insulin dependent A1c: 8.7 on 03/2018 Continue Lantus, Novolog sliding scale Glycemic pharmacy consult (16) HTN (hypertension): BP elevated Asymptomatic Continue current meds Hydralazine PRN (17) GERD (gastroesophageal reflux disease): Continue Ranitidine DVT Px: Coumadin held SCDs for now Code Status Full Code Subjective Patient is seen and examined at bedside Reports minimal abdominal discomfort today Planned for HD this morning Offers no other complaints Denies chest pain, SOB, dizziness, nausea Discussed with patient's family in detail Pathology pending Review of Systems Review of Systems: All systems reviewed & are unremarkable except as noted in HPI & below Physical Exam Physical Exam: Physical Exam: Vitals signs as noted above General Appearance:Moderately built and nourished, no apparent distress Head: normocephalic, Atraumatic Eyes: normal inspection, EOMI Neck: supple, Trachea midline Respiratory/Chest: Normal breath sounds, CTA Cardiovascular: S1, S2, No murmur Abdomen/GI:Soft, Non tender, Bowel sounds present Extremities/Musculoskelatal:normal inspection, Trace edema Neurologic/Psych:AAOX3, grossly no focal neurological deficits Skin: normal color, warm Results & Data Vital Signs (Past 12 Hours) Vital Signs Temp Pulse Pulse Pulse Resp BP BP 11/07/18 15:28 36.8 C 63 18 134/74 11/07/18 14:25 62 181/67 H 11/07/18 13:40 36.6 C 60 190/82 H 11/07/18 13:20 62 184/87 H 11/07/18 13:00 60 192/97 H 11/07/18 12:40 60 197/82 H 11/07/18 12:20 60 194/83 H 11/07/18 12:00 60 199/83 H 11/07/18 11:40 54 L 167/74 H 11/07/18 11:20 61 190/70 H 11/07/18 11:00 60 189/83 H 11/07/18 10:40 60 195/84 H 11/07/18 10:20 60 196/83 H 11/07/18 10:00 61 191/82 H 11/07/18 09:40 60 187/99 H 11/07/18 09:32 36.7 C 66 11/07/18 08:51 64 187/82 H 11/07/18 07:16 36.8 C 60 22 200/86 H Pulse Ox 11/07/18 15:28 97 11/07/18 14:25 95 11/07/18 13:40 11/07/18 13:20 11/07/18 13:00 11/07/18 12:40 11/07/18 12:20 11/07/18 12:00 11/07/18 11:40 11/07/18 11:20 11/07/18 11:00 11/07/18 10:40 11/07/18 10:20 11/07/18 10:00 11/07/18 09:40 11/07/18 09:32 11/07/18 08:51 11/07/18 07:16 95 Laboratory Results Short CBC 11/06/18 11/07/18 11/07/18 Range/Units 20:07 05:23 07:48 WBC 6.11 (4.8-10.8) K/uL Hgb 10.1 L 9.8 L 10.3 L (12.0-16.0) g/dL Hct 30.4 L 29.8 L 30.5 L (37-47) % Plt Count 79 L (130-400) K/uL BMP 11/07/18 05:23 Sodium 131 L Potassium 4.4 Chloride 94 L Carbon Dioxide 27 BUN 19 H D Creatinine 4.77 H* D Glucose 175 H Calcium 8.4 L (1) Endocarditis Endocarditis type: infective Infective endocarditis organism: bacterial Chronicity: unspecified Qualified Code(s): I33.0 - Acute and subacute infective endocarditis (2) Sepsis Sepsis type: Streptococcus, other Qualified Code(s): A40.8 - Other streptococcal sepsis (3) Abdominal pain Abdominal location: periumbilical Qualified Code(s): R10.33 - Periumbilical pain (4) Ascites Ascites type: other type Qualified Code(s): R18.8 - Other ascites (5) Diabetes mellitus, type II Diabetes mellitus long chain beamer insulin use: unspecified long chain beamer insulin use status Diabetes mellitus complication status: with kidney complications Diabetes mellitus complication detail: with chronic kidney disease Chronic kidney disease stage: on chronic dialysis Qualified Code(s): E11.22 - 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 diabetic chronic kidney disease; N18.6 - End stage renal disease; Z99.2 - Dependence on renal dialysis (6) HTN (hypertension) Hypertension type: unspecified Qualified Code(s): I10 - Essential (primary) hypertension (7) GERD (gastroesophageal reflux disease) Esophagitis presence: esophagitis presence not specified Qualified Code(s): K21.9 - Gastro-esophageal reflux disease without esophagitis
--- NOTE | 2018-11-07 16:21 | Nephrology Progress Note ---
Date of Service November 07, 2018 Assessment & Plan (1) End-stage renal disease (ESRD): Patient with ESRD on dialysis Friday. She was seen and examined on HD. She is tolerating HS well today. target UF 2litres. Next HD will be on Friday for 4 hours and net UF of 2.5 L. (2) Gram-positive cocci bacteremia: Due to Streptococcus bovis. Patient is receiving ceftriaxone per primary team and ID. Renally dose medications for GFR less than 20. She is s/p colonoscopy, pathology pending. patient got midline catheter for antibiotics. (3) Anemia of renal disease: Patient with anemia due to renal disease. Recent hemoglobin of 9.8, will give 10,000 units of Epogen with dialysis. (4) HTN (hypertension): Her blood pressure is at target. Continue current regimen. Hold morning BP meds pre HD on dialysis days. Subjective ESRD Patient seen and examined on HD. She is tolerating HD well this morning. She had EGD yesterday and pathology pending. No SOB or leg swelling. Review of Systems Review of Systems: All systems reviewed & are unremarkable except as noted in HPI & below Physical Exam Physical Exam: General exam: Appears comfortable, no acute distress HEENT: Pupils are equal and reactive to light Neck: No JVD, neck is supple trachea is midline Respiratory system: Clear breath sounds bilaterally. Gastrointestinal: Abdomen is soft, non distended, non tender, bowel sounds are present CVS: Regular rate and rhythm. No murmurs, rubs or gallops Musculoskeletal: No joint or muscle tenderness Extremities: Non tender, no edema, peripheral pulses are present Neuro: Oriented, no tremors, no focal neurological deficits Skin: No rashes Access: left AVF Results & Data Vital Signs (Past 12 Hours) Vital Signs Temp Pulse Pulse Pulse Resp BP BP 11/07/18 15:28 36.8 C 63 18 134/74 11/07/18 14:25 62 181/67 H 11/07/18 13:40 36.6 C 60 190/82 H 11/07/18 13:20 62 184/87 H 11/07/18 13:00 60 192/97 H 11/07/18 12:40 60 197/82 H 11/07/18 12:20 60 194/83 H 11/07/18 12:00 60 199/83 H 11/07/18 11:40 54 L 167/74 H 11/07/18 11:20 61 190/70 H 11/07/18 11:00 60 189/83 H 11/07/18 10:40 60 195/84 H 11/07/18 10:20 60 196/83 H 11/07/18 10:00 61 191/82 H 11/07/18 09:40 60 187/99 H 11/07/18 09:32 36.7 C 66 11/07/18 08:51 64 187/82 H 11/07/18 07:16 36.8 C 60 22 200/86 H Pulse Ox 11/07/18 15:28 97 11/07/18 14:25 95 11/07/18 13:40 11/07/18 13:20 11/07/18 13:00 11/07/18 12:40 11/07/18 12:20 11/07/18 12:00 11/07/18 11:40 11/07/18 11:20 11/07/18 11:00 11/07/18 10:40 11/07/18 10:20 11/07/18 10:00 11/07/18 09:40 11/07/18 09:32 11/07/18 08:51 11/07/18 07:16 95 Laboratory Results Laboratory Results - last 24 hr 11/06/18 11/06/18 11/06/18 16:27 20:07 20:42 WBC RBC Hgb 10.1 L Hct 30.4 L MCV MCH MCHC RDW Std Deviation RDW Coeff of Jacobo Plt Count MPV PT INR Sodium Potassium Chloride Carbon Dioxide Anion Gap BUN Creatinine Est Cr Clr Drug Dosing Est GFR ( Amer) Est GFR (Non-Af Amer) BUN/Creatinine Ratio Glucose POC Glucose 132 H 233 H Calcium 11/07/18 11/07/18 11/07/18 05:23 05:23 05:23 WBC 6.11 RBC 3.03 L Hgb 9.8 L Hct 29.8 L MCV 98.3 MCH 32.3 MCHC 32.9 RDW Std Deviation 50.9 H RDW Coeff of Jacobo 15.1 H Plt Count 79 L MPV 12.2 H PT 18.3 H INR 1.9 H Sodium 131 L Potassium 4.4 Chloride 94 L Carbon Dioxide 27 Anion Gap 10.0 BUN 19 H D Creatinine 4.77 H* D Est Cr Clr Drug Dosing 9.8 Est GFR ( Amer) 9.8 Est GFR (Non-Af Amer) 8.4 BUN/Creatinine Ratio 4.0 L Glucose 175 H POC Glucose Calcium 8.4 L 11/07/18 11/07/18 11/07/18 07:22 07:48 14:10 WBC RBC Hgb 10.3 L Hct 30.5 L MCV MCH MCHC RDW Std Deviation RDW Coeff of Jacobo Plt Count MPV PT INR Sodium Potassium Chloride Carbon Dioxide Anion Gap BUN Creatinine Est Cr Clr Drug Dosing Est GFR ( Amer) Est GFR (Non-Af Amer) BUN/Creatinine Ratio Glucose POC Glucose 183 H 151 H Calcium (1) HTN (hypertension) Hypertension type: unspecified Qualified Code(s): I10 - Essential (primary) hypertension
[2018-11-07] MEDS: cefTRIAXone SODIUM 2,000 MG in DEXTROSE 5% 50 ML IV SCH (16:47)
[2018-11-07 20:24] LABS: Hematocrit (blood only) 31.9 % (37-47); Hemoglobin 10.5 g/dL (12.0-16.0)
[2018-11-08 06:58] LABS: Hematocrit (blood only) 31.9 % (37-47); Hemoglobin 10.6 g/dL (12.0-16.0); Mean Corpuscular Hgb Conc 33.2 g/dL (32-36); RDW Coefficient of Variation 15.6 % (11.5-14.5); RDW Standard Deviation 52.6 fL (36.4-46.3); Red Blood Count 3.19 M/uL (4.2-5.4); White Blood Count 7.41 K/uL (4.8-10.8)
[2018-11-08 07:00] LABS: INR 1.4 (0.9-1.1); Prothrombin Time 14.4 Seconds (9.0-12.0)
[2018-11-08 07:05] LABS: Mean Platelet Volume 11.9 fL (7.4-10.4); Platelet Count 82 K/uL (130-400)
[2018-11-08 07:25] LABS: BUN Creatinine Ratio 4.8 (10-20); Calcium 9.2 mg/dl (8.5-10.1); Creatinine Clr Calc Pharmacy 10.2 ml/min; Est GFR (African American) 10.4; Potassium 4.2 mmol/L (3.5-5.1)
[2018-11-08] MEDS: CALCIUM ACETATE 667 MG CAP PO SCH ×3 (08:28→17:21)
[2018-11-08] MEDS: AMIODARONE 200 MG TAB PO SCH (08:28)
[2018-11-08] MEDS: CARVEDILOL 25 MG TAB PO SCH ×2 (08:29→19:43)
[2018-11-08] MEDS: POLYETHYLENE (MIRALAX) 17 GM PACK PO SCH (08:29)
[2018-11-08] MEDS: TORSEMIDE 10 MG TAB PO SCH (08:29)
[2018-11-08] MEDS: INSULIN ASPART 100 UNITS/ML 3 ML PEN SC SCH ×4 (08:30→19:53)
[2018-11-08] MEDS: AMLODIPINE BESYLATE 5 MG TAB PO SCH ×2 (08:36→09:21)
--- NOTE | 2018-11-08 10:00 | Cardiology Progress Note ---
Date of Service November 08, 2018 Assessment & Plan (1) Gram-positive cocci bacteremia: The patient has a previous history of endocarditis which was treated conservatively with several weeks of antibiotics in 2016. Infectious disease and electrophysiology consults appreciated. I reviewed the transthoracic echocardiogram myself along with Dr. Aviles. The patient has heavily calcified valvular annulus formation which is not unexpected in a dialysis patient. Ultrasound whether by transthoracic or transesophageal will unfortunately provide limited information. I would recommend treating for endocarditis at this point with several weeks of antibiotics. She is a very complex patient and if the device requires removal, it will be a very high risk procedure. Strep bovis is associated to GI malignancies. Several polyps removed post colonoscopy pathology is pending. Outpatient antibiotics being arranged through nephrology and ID. Okay to discharge to outpatient follow-up from cardiology standpoint. (2) Idiopathic cardiomyopathy: Clinically stable. (3) End-stage renal disease (ESRD): Receiving dialysis (4) Biventricular ICD (implantable cardioverter-defibrillator) in place: Electrophysiology consult appreciated. The patient did have multiple shocks related to ventricular fibrillation/flutter. Continue amiodarone. (5) Nausea, vomiting and diarrhea: EGD was unremarkable. Colonoscopy indicated several polyps that were removed and sent to pathology for analysis. Subjective The patient had an uneventful night. She has remained hypertensive and nephrology is adjusting her medications. From a cardiac standpoint she has been stable. She remains in a paced rhythm. Review of Systems Review of Systems: All systems reviewed & are unremarkable except as noted in HPI & below No change Physical Exam Physical Exam: General: no acute distress and stated age Head: normocephalic, no masses, lesions, tenderness or abnormalities Eyes: conjunctiva are pink and non-injected, sclera clear Neck: supple, no adenopathy, no bruits, normal jugular venous pulse, no hepa tojugular reflux Chest: normal shape and normal respiratory effort Lungs: clear to auscultation and percussion Cardiac Exam: - regular rate & rhythm, no murmurs gallops or rubs - normal S1, normal S2 Pulses: 2(+) throughout Abdomen: abdomen soft, non-tender, no abnormal masses and no hepatosplenomegaly Musculoskeletal: no gait disturbance, no joint inflammation, no deforming arthritis Extremities: no edema and no cyanosis Neuro: grossly normal exam Results & Data Vital Signs (Past 12 Hours) Vital Signs Temp Pulse Pulse Pulse Resp BP Pulse Ox 04/28/19 07:08 36.9 C 61 22 198/79 H 99 11/08/18 03:52 36.9 C 63 20 186/68 H 93 11/07/18 23:05 36.8 C 64 18 162/77 H 94 11/07/18 22:46 60 Laboratory Results Laboratory Results - last 24 hr 11/07/18 11/07/18 11/07/18 14:10 16:27 20:05 WBC RBC Hgb 10.5 L Hct 31.9 L MCV MCH MCHC RDW Std Deviation RDW Coeff of Jacobo Plt Count MPV PT INR Sodium Potassium Chloride Carbon Dioxide Anion Gap BUN Creatinine Est Cr Clr Drug Dosing Est GFR ( Amer) Est GFR (Non-Af Amer) BUN/Creatinine Ratio Glucose POC Glucose 151 H 182 H Calcium 11/07/18 11/08/18 11/08/18 20:28 05:59 05:59 WBC 7.41 RBC 3.19 L Hgb 10.6 L Hct 31.9 L MCV 100.0 MCH 33.2 MCHC 33.2 RDW Std Deviation 52.6 H RDW Coeff of Jacobo 15.6 H Plt Count 82 L MPV 11.9 H PT 14.4 H INR 1.4 H Sodium Potassium Chloride Carbon Dioxide Anion Gap BUN Creatinine Est Cr Clr Drug Dosing Est GFR ( Amer) Est GFR (Non-Af Amer) BUN/Creatinine Ratio Glucose POC Glucose 143 H Calcium 11/08/18 11/08/18 05:59 07:14 WBC RBC Hgb Hct MCV MCH MCHC RDW Std Deviation RDW Coeff of Jacobo Plt Count MPV PT INR Sodium 133 L Potassium 4.2 Chloride 96 L Carbon Dioxide 26 Anion Gap 11.0 BUN 22 H Creatinine 4.53 H* Est Cr Clr Drug Dosing 10.2 Est GFR ( Amer) 10.4 Est GFR (Non-Af Amer) 9.0 BUN/Creatinine Ratio 4.8 L Glucose 148 H POC Glucose 161 H Calcium 9.2 Medications Administered Current Inpatient Medications Amiodarone HCl (Cordarone) 200 mg PO DAILY DANY Stop: 11/30/18 08:59 Last Admin: 11/08/18 08:28 Dose: 200 mg Documented by: Calcium Acetate (Phoslo) 1,334 mg PO TIDM DANY Stop: 11/30/18 07:59 Last Admin: 04/28/19 08:28 Dose: 1,334 mg Documented by: Carvedilol (Coreg) 50 mg PO BID REPLACED BY [facility] Stop: 12/05/18 20:59 Last Admin: 11/08/18 08:29 Dose: 50 mg Documented by: Dextrose (Dextrose 50%) 25 - 50 ml IV UD PRN; Protocol PRN Reason: Hypoglycemia Protocol Stop: 11/29/18 19:14 Glucagon (Glucagen) 1 mg IM UD PRN; Protocol PRN Reason: Hypoglycemia Protocol Stop: 11/29/18 19:14 Glucose (Glucose 40%) 15 - 30 gm PO UD PRN; Protocol PRN Reason: Hypoglycemia Protocol Stop: 11/29/18 19:14 Glucose (Dex4 Glucose) 4 - 8 tabs PO UD PRN; Protocol PRN Reason: Hypoglycemia Protocol Stop: 11/29/18 19:14 Hydralazine HCl (Hydralazine Hcl) 5 mg IV Q6H PRN PRN Reason: Hypertension Stop: 12/07/18 08:14 Hydralazine HCl (Apresoline) 50 mg PO TID REPLACED BY [facility] Stop: 12/08/18 13:59 Acetaminophen (Ofirmev) 1,000 mg in 100 mls @ 400 mls/hr IV Q8H PRN PRN Reason: Pain Stop: 11/30/18 09:44 Last Infusion: 10/31/18 22:23 Dose: Infused Documented by: Promethazine HCl 12.5 mg/ (Sodium Chloride) 50.5 mls @ 202 mls/hr IV Q6H PRN PRN Reason: Nausea And Vomiting Stop: 12/01/18 18:21 Last Infusion: 11/01/18 19:15 Dose: Infused Documented by: Ceftriaxone Sodium 2,000 mg/ (Dextrose) 70 mls @ 100 mls/hr IV DAILY@1800 DANY; Protocol Stop: 11/16/18 17:59 Last Infusion: 11/07/18 17:23 Dose: Infused Documented by: Insulin Aspart (Novolog Flexpen) 0 units SC ACHS REPLACED BY [facility]; Protocol Stop: 12/06/18 20:59 Last Admin: 11/08/18 08:30 Dose: 3 units Documented by: Insulin Glargine (Lantus Solostar Pen) 7 units SQ QPM DANY; Protocol Stop: 12/08/18 16:29 Lidocaine/Prilocaine (Emla 2.5%) 1 ea EXT PRN PRN PRN Reason: DIALYSIS Stop: 11/29/18 18:20 Lorazepam (Ativan) 0.5 mg PO Q8 PRN PRN Reason: Anxiety Stop: 12/02/18 17:49 Miscellaneous (Carbohydrates For Hypoglycemia) 15 - 30 gm PO UD PRN PRN Reason: Hypoglycemia Treatment Stop: 11/29/18 19:14 Miscellaneous Information (Consult Glycemic Management Pharmacy) 1 ea N/A UD PRN PRN Reason: Consult Stop: 11/29/18 18:52 Morphine Sulfate (Morphine Sulfate) 0.5 mg IV Q4H PRN PRN Reason: Pain Stop: 11/13/18 18:20 Last Admin: 11/06/18 23:38 Dose: 0.5 mg Documented by: Polyethylene Glycol (Miralax Powder Packet) 17 gm PO DAILY REPLACED BY [facility] Stop: 12/04/18 15:14 Last Admin: 11/08/18 08:29 Dose: Not Given Documented by: Ranitidine HCl (Zantac) 150 mg PO BID REPLACED BY [facility] Stop: 12/01/18 20:59 Last Admin: 11/08/18 08:29 Dose: 150 mg Documented by: Torsemide (Demadex) 20 mg PO DAILY DANY Stop: 11/30/18 08:59 Last Admin: 11/08/18 08:29 Dose: 20 mg Documented by: Warfarin Sodium (Coumadin) 4 mg PO DAILY@1600 REPLACED BY [facility] Stop: 11/29/18 18:59 Last Admin: 10/30/18 21:41 Dose: 4 mg Documented by:
[2018-11-08] MEDS ORDERED: INSULIN GLARGINE SOLOSTAR 100 UNITS/ML 3 ML PEN SQ ONE (12:00)
--- NOTE | 2018-11-08 12:43 | Hospitalist Progress Note ---
Date of Service November 08, 2018 Assessment & Plan (1) Gram-positive cocci bacteremia: Bacteremia Acute Endocarditis Blood culture: Streptococcus Bovis -To R/O GI malignancy Repeat Blood cultures: No growth to date Continue Ceftriaxone-- Likely needs 4 weeks of IV Abx Appreciate ID/Cardiology Input Heavily calcified valvular annulus formation--MANISH will provide limited information very complex patient--if device needs removal, it will be a very high risk procedure as per Cardiology AICD device interrogation showed multiple AICD shock per and on admission EGD: Normal Colonoscopy: Multiple polyps removed; Internal hemorrhoids Received Vitamin K, FFP, DDAVP for procedure Pathology:Pending Appreciate GI help Continue to hold Coumadin-- Likely to resume on Friday if Hb stable INR:1.4 Continue amiodarone, Coreg Monitor electrolytes Monitor H&H No bleeding issues currently Continue ranitidine BID Plan for PICC/ Central line as able Continue current management (2) Endocarditis: H/O endocarditis which was treated conservatively with several weeks of antibiotics in 2016. Management as above (3) Sepsis: Due to bacteremia, endocarditis continue Abx as above Multiple AICD Shock AICD interrogation shows frequent ventricular fibrillation with multiple AICD shock prior to patient's admission Patient denies symptoms Appreciate input from EP cardiology Device setting adjusted Continue current meds No recurrence of AICD shock (4) Nausea, vomiting and diarrhea: Stool studies negative Resolved (5) Abdominal pain: Resolved (6) Ascites: (7) Elevated LFTs: Possibly secondary to sepsis-Improving Normalized CT ABD/PELVIS: Small amount of abdominal and pelvic ascites U/S liver mild gallbladder wall thickening 4 mm no evidence of acute cholecystitis: Monitor (8) Weakness: Secondary to above PT/OT (9) Cough: Reported non-productive cough x 1 week Negative influenza PCR CXR: Mild interstitial pulmonary edema and trace bilateral pleural effusions. Cardiomegaly. Resolved (10) Elevated troponin: Mild Troponin elevation Secondary to sepsis, in the setting of end-stage renal disease, poor renal clearance Denies chest pain or shortness of breath Paced rhythm on EKG (11) End-stage renal disease (ESRD): On HD on , Sat Missed Dialysis 10/29/18 Dialysis as per Nephro Appreciate Nephrology help (12) Idiopathic cardiomyopathy: S/P ICD Echo: 04/2018: EF: 40%, mild concentric LVH, moderate dilated RV, severely dilated R atrium, moderate tricupsid regurgitation (13) Paroxysmal atrial fibrillation: Continue on Coreg, Amiodarone Coumadin on hold (14) Hx of supraventricular tachycardia: Continue Coreg, amiodarone (15) Diabetes mellitus, type II: Insulin dependent A1c: 8.7 on 03/2018 Continue Lantus, Novolog sliding scale Glycemic pharmacy consult (16) HTN (hypertension): BP elevated Asymptomatic Increased Hydralazine to 50mg TID for better BP control Monitor (17) GERD (gastroesophageal reflux disease): Continue Ranitidine DVT Px: Coumadin held SCDs for now Code Status Full Code Subjective Patient is seen and examined at bedside States feeling tired today Still has some abdominal discomfort No blood in stools Blood pressure remains elevated Offers no other complaints Denies chest pain, SOB, dizziness, nausea Pathology pending Review of Systems Review of Systems: All systems reviewed & are unremarkable except as noted in HPI & below Physical Exam Physical Exam: Physical Exam: Vitals signs as noted above General Appearance:Moderately built and nourished, no apparent distress Head: normocephalic, Atraumatic Eyes: normal inspection, EOMI Neck: supple, Trachea midline Respiratory/Chest: Normal breath sounds, CTA Cardiovascular: S1, S2, No murmur Abdomen/GI:Soft, Non tender, Bowel sounds present Extremities/Musculoskelatal:normal inspection, Trace edema Neurologic/Psych:AAOX3, grossly no focal neurological deficits Skin: normal color, warm Results & Data Vital Signs (Past 12 Hours) Vital Signs Temp Pulse Pulse Resp BP Pulse Ox 11/08/18 11:39 60 18 11/08/18 07:08 36.9 C 61 22 198/79 H 99 11/08/18 03:52 36.9 C 63 20 186/68 H 93 Laboratory Results Short CBC 11/07/18 11/08/18 Range/Units 20:05 05:59 WBC 7.41 (4.8-10.8) K/uL Hgb 10.5 L 10.6 L (12.0-16.0) g/dL Hct 31.9 L 31.9 L (37-47) % Plt Count 82 L (130-400) K/uL BMP 11/08/18 05:59 Sodium 133 L Potassium 4.2 Chloride 96 L Carbon Dioxide 26 BUN 22 H Creatinine 4.53 H* Glucose 148 H Calcium 9.2 (1) Endocarditis Endocarditis type: infective Infective endocarditis organism: bacterial Film Flat Inspector nicity: unspecified Qualified Code(s): I33.0 - Acute and subacute infective endocarditis (2) Sepsis Sepsis type: Streptococcus, other Qualified Code(s): A40.8 - Other streptococcal sepsis (3) Abdominal pain Abdominal location: periumbilical Qualified Code(s): R10.33 - Periumbilical pain (4) Ascites Ascites type: other type Qualified Code(s): R18.8 - Other ascites (5) Diabetes mellitus, type II 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 mellitus 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 insulin use: unspecified skilled nursing insulin use status Diabetes mellitus complication status: with kidney complications Diabetes mellitus complication detail: with chronic kidney disease Chronic kidney disease stage: on chronic dialysis Qualified Code(s): E11.22 - 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 diabetic chronic kidney disease; N18.6 - End stage renal disease; Z99.2 - Dependence on renal dialysis (6) HTN (hypertension) Hypertension type: unspecified Qualified Code(s): I10 - Essential (primary) hypertension (7) GERD (gastroesophageal reflux disease) Esophagitis presence: esophagitis presence not specified Qualified Code(s): K21.9 - Gastro-esophageal reflux disease without esophagitis
--- NOTE | 2018-11-08 14:09 | Pharmacy Report ---
Pharmacy Glycemic Short Note 2 - Date of Service November 08, 2018 - Glycemic Short BSG Results (Last 24 hours): 11/07/18 11/07/18 11/07/18 14:10 16:27 20:28 Glucose POC Glucose 151 H 182 H 143 H 11/08/18 11/08/18 11/08/18 05:59 07:14 11:33 Glucose 148 H POC Glucose 161 H 260 H OUTPATIENT ANTIDIABETIC REGIMEN: * Lantus 20 units QPM * Novolog 12 units TID with meals * Patient's A1c not obtained. This would be unreliable in ESRD patients d/t interactions between the A1c analyzing technique and high levels of urea in ESRD, reduced RBC life span, iron deficiency anemia, and EPO administration. HbA1c > 7.5% in ESRD patient may overestimate the extent of hyperglycemia in ESRD patients. ASSESSMENT 11/08 * Ellie received a total of 17 units of insulin yesterday * Fasting BSG of 161 mg/dL is elevated. Patient was ordered to receive Lantus 7 units last evening if BSG was > 140 mg/dL. BSG was >140 mg/dL but patient was not administered insulin, therefore she remains basal deficient. Partial dose of 4 units given with lunch. She is ordered 7 units at dinnertime. * Continue current Novolog coverage 11/07 * Fasting BSG elevated at 183 mg/dL. Patient did not receive any basal insulin on 11/05 or 11/06, therefore she is likely basal deficient. Yesterday she was ordered a set dose of Lantus 7 units qHS (starting 11/07 PM). I have continued this dose and gave an extra 4 units this AM x 1. * Post prandial BSGs are mostly at goal. Ellie has been off the floor for HD therefore a lunch BSG was not obtained. 11/06 * Ms. Villar received ZERO units of insulin yesterday (compared to 24 units the day prior) * She is currently NPO for an EGD/colonoscopy today * Fasting = 115 mg/dL * Postprandial BSGs on the lower side * In terms of basal requirements, it appears that she's needing an average of 7 units (with 15 units and then held days). Will schedule this dose instead of providing a scaled dose. PLAN FOR INPATIENT GLYCEMIC CONTROL: * Basal insulin: * Lantus 4 units SQ this morning x 1, then Lantus 7 units SQ qPM (starting with dinner today) * Bolus insulin - no change * NovoLog per scale ACHS or Q6hrs while NPO * Goal Range: Low 120 mg/dL - High 160 mg/dL * Correction Factor: 30 mg/dL/unit * Nutritional / Prandial insulin per carb ratio of 1 unit per 12 grams CHO consumed PLAN FOR DISCHARGE: * Home insulin regimen reported: Lantus 20 units QPM; Novolog 12 units TID with meals. * Recommend patient be discharged on their home insulin regimen as long as she was not reporting significant low BSGs or hyperglycemia.
--- NOTE | 2018-11-08 14:11 | Nephrology Progress Note ---
Date of Service November 08, 2018 Assessment & Plan (1) End-stage renal disease (ESRD): Patient with ESRD on dialysis Friday. She tolerated HD well yesterday. Next HD will be on Friday for 4 hours and net UF of 2.5 L. (2) Gram-positive cocci bacteremia: Due to Streptococcus bovis. Patient is receiving ceftriaxone per primary team and ID. Renally dose medications for GFR less than 20. She is s/p colonoscopy, pathology pending. patient got midline catheter for antibiotics. (3) Anemia of renal disease: Patient with anemia due to renal disease. Recent hemoglobin of 9.8, will give 10,000 units of Epogen with dialysis. (4) HTN (hypertension): Her blood pressure is above target. Increase hydralazine to 50mg tid. Patient does not want Norvasc. Hold morning BP meds pre HD on dialysis days. Subjective ESRD seen in follow up. She feels tired. No SOB. Her BP is high this morning. She does not want norvasc due to edema. She tolerated HD well yesterday. No vomiting or diarrhoea Review of Systems Review of Systems: All systems reviewed & are unremarkable except as noted in HPI & below Physical Exam Physical Exam: General exam: Appears comfortable, no acute distress HEENT: Pupils are equal and reactive to light Neck: No JVD, neck is supple trachea is midline Respiratory system: Clear breath sounds bilaterally. Gastrointestinal: Abdomen is soft, non distended, non tender, bowel sounds are present CVS: Regular rate and rhythm. No murmurs, rubs or gallops Musculoskeletal: No joint or muscle tenderness Extremities: Non tender, no edema, peripheral pulses are present Neuro: Oriented, no tremors, no focal neurological deficits Skin: No rashes Access: left FA AVF, good bruit Results & Data Vital Signs (Past 12 Hours) Vital Signs Temp Pulse Pulse Resp BP Pulse Ox 11/08/18 13:04 37.5 C 60 16 153/74 H 96 11/08/18 11:39 60 18 11/08/18 07:08 36.9 C 61 22 198/79 H 99 11/08/18 03:52 36.9 C 63 20 186/68 H 93 Laboratory Results Laboratory Results - last 24 hr 11/07/18 11/07/18 11/07/18 14:10 16:27 20:05 WBC RBC Hgb 10.5 L Hct 31.9 L MCV MCH MCHC RDW Std Deviation RDW Coeff of Jacobo Plt Count MPV PT INR Sodium Potassium Chloride Carbon Dioxide Anion Gap BUN Creatinine Est Cr Clr Drug Dosing Est GFR ( Amer) Est GFR (Non-Af Amer) BUN/Creatinine Ratio Glucose POC Glucose 151 H 182 H Calcium 11/07/18 11/08/18 11/08/18 20:28 05:59 05:59 WBC 7.41 RBC 3.19 L Hgb 10.6 L Hct 31.9 L MCV 100.0 MCH 33.2 MCHC 33.2 RDW Std Deviation 52.6 H RDW Coeff of Jacobo 15.6 H Plt Count 82 L MPV 11.9 H PT 14.4 H INR 1.4 H Sodium Potassium Chloride Carbon Dioxide Anion Gap BUN Creatinine Est Cr Clr Drug Dosing Est GFR ( Amer) Est GFR (Non-Af Amer) BUN/Creatinine Ratio Glucose POC Glucose 143 H Calcium 11/08/18 11/08/18 11/08/18 05:59 07:14 11:33 WBC RBC Hgb Hct MCV MCH MCHC RDW Std Deviation RDW Coeff of Jacobo Plt Count MPV PT INR Sodium 133 L Potassium 4.2 Chloride 96 L Carbon Dioxide 26 Anion Gap 11.0 BUN 22 H Creatinine 4.53 H* Est Cr Clr Drug Dosing 10.2 Est GFR ( Amer) 10.4 Est GFR (Non-Af Amer) 9.0 BUN/Creatinine Ratio 4.8 L Glucose 148 H POC Glucose 161 H 260 H Calcium 9.2 (1) HTN (hypertension) Hypertension type: unspecified Qualified Code(s): I10 - Essential (primary) hypertension
[2018-11-08] MEDS: HydrALAZINE TAB 50 MG TAB PO SCH ×2 (15:29→19:41)
[2018-11-08] MEDS: INSULIN GLARGINE SOLOSTAR 100 UNITS/ML 3 ML PEN SQ SCH (17:20)
[2018-11-08] MEDS: cefTRIAXone SODIUM 2,000 MG in DEXTROSE 5% 50 ML IV SCH (17:24)
[2018-11-09 06:11] LABS: Hematocrit (blood only) 31.1 % (37-47); Hemoglobin 10.3 g/dL (12.0-16.0)
[2018-11-09 06:28] LABS: INR 1.3 (0.9-1.1); Prothrombin Time 13.4 Seconds (9.0-12.0)
[2018-11-09] MEDS: INSULIN ASPART 100 UNITS/ML 3 ML PEN SC SCH ×4 (08:18→20:46)
[2018-11-09] MEDS: CARVEDILOL 25 MG TAB PO SCH ×2 (08:20→20:21)
[2018-11-09] MEDS: AMIODARONE 200 MG TAB PO SCH (08:20)
[2018-11-09] MEDS: CALCIUM ACETATE 667 MG CAP PO SCH ×3 (08:20→16:34)
[2018-11-09] MEDS: HydrALAZINE TAB 50 MG TAB PO SCH ×3 (08:20→20:20)
[2018-11-09] MEDS: TORSEMIDE 10 MG TAB PO SCH (08:20)
[2018-11-09] MEDS: POLYETHYLENE (MIRALAX) 17 GM PACK PO SCH (08:21)
--- NOTE | 2018-11-09 09:36 | Nephrology Progress Note ---
Date of Service November 09, 2018 Assessment & Plan (1) End-stage renal disease (ESRD): Patient with ESRD on dialysis Friday. She tolerated HD well on Friday. Next HD will be on Friday for 4 hours and target UF of 2.5 L. Patient will likely be discharged tomorrow after dialysis (2) Gram-positive cocci bacteremia: Due to Streptococcus bovis. Patient is receiving ceftriaxone per primary team and ID. Renally dose medications for GFR less than 20. She is s/p colonoscopy, pathology pending. patient got midline catheter for antibiotics. (3) Anemia of renal disease: Patient with anemia due to renal disease. Recent hemoglobin of 9.8, will give 10,000 units of Epogen with dialysis. (4) HTN (hypertension): Her blood pressure is better but still above target. Continue current regimen. Patient does not want Norvasc. Hold morning BP meds pre HD on dialysis days. Subjective Patient seen in follow-up for ESRD and bacteremia. She feels better today denies any shortness of breath or leg swelling. She still has loose stool but improving. Blood pressure is slightly better although still above target. No vomiting. She is eager to be discharged home. Review of Systems Review of Systems: All systems reviewed & are unremarkable except as noted in HPI & below Physical Exam Physical Exam: General exam: Appears comfortable, no acute distress HEENT: Pupils are equal and reactive to light Neck: No JVD, neck is supple trachea is midline Respiratory system: Clear breath sounds bilaterally. Gastrointestinal: Abdomen is soft, non distended, non tender, bowel sounds are present CVS: Regular rate and rhythm. No murmurs, rubs or gallops Musculoskeletal: No joint or muscle tenderness Extremities: Non tender, no edema, peripheral pulses are present Neuro: Oriented, no tremors, no focal neurological deficits Skin: No rashes Results & Data Vital Signs (Past 12 Hours) Vital Signs Temp Pulse Pulse Resp BP Pulse Ox 11/09/18 06:47 36.9 C 62 24 173/74 H 98 11/09/18 03:36 36.6 C 60 18 168/72 H 95 11/08/18 23:56 36.7 C 60 63 22 175/82 H 96 Laboratory Results Laboratory Results - last 24 hr 11/08/18 11/08/18 11/08/18 11:33 16:18 19:52 Hgb Hct PT INR POC Glucose 260 H 140 H 163 H 11/08/18 11/09/18 11/09/18 20:10 05:30 05:30 Hgb 10.3 L Hct 31.1 L PT 13.4 H INR 1.3 H POC Glucose 133 H 11/09/18 07:17 Hgb Hct PT INR POC Glucose 123 H (1) HTN (hypertension) Hypertension type: unspecified Qualified Code(s): I10 - Essential (primary) hypertension
--- NOTE | 2018-11-09 10:14 | Cardiology Progress Note ---
Date of Service November 09, 2018 Assessment & Plan (1) Gram-positive cocci bacteremia: The patient can be discharged per the hospitalist, ID and nephrology. I will arrange follow-up at the [facility]. (2) Idiopathic cardiomyopathy: Clinically stable. (3) End-stage renal disease (ESRD): Receiving dialysis (4) Biventricular ICD (implantable cardioverter-defibrillator) in place: No additional arrhythmia since admission. Continue amiodarone. (5) Nausea, vomiting and diarrhea: Pathology on polyps from colonoscopy still pending. Subjective The patient had an uneventful night. Nephrology note appreciated. Review of Systems Review of Systems: All systems reviewed & are unremarkable except as noted in HPI & below Unchanged Physical Exam Physical Exam: General: no acute distress and stated age Head: normocephalic, no masses, lesions, tenderness or abnormalities Eyes: conjunctiva are pink and non-injected, sclera clear Neck: supple, no adenopathy, no bruits, normal jugular venous pulse, no hepatojugular reflux Chest: normal shape and normal respiratory effort Lungs: clear to auscultation and percussion Cardiac Exam: - regular rate & rhythm, no murmurs gallops or rubs - normal S1, normal S2 Pulses: 2(+) throughout Abdomen: abdomen soft, non-tender, no abnormal masses and no hepatosplenomegaly Musculoskeletal: no gait disturbance, no joint inflammation, no deforming arthritis Extremities: no edema and no cyanosis Neuro: grossly normal exam Results & Data Vital Signs (Past 12 Hours) Vital Signs Temp Pulse Pulse Resp BP Pulse Ox 11/09/18 06:47 36.9 C 62 24 173/74 H 98 11/09/18 03:36 36.6 C 60 18 168/72 H 95 11/08/18 23:56 36.7 C 60 63 22 175/82 H 96 Laboratory Results Laboratory Results - last 24 hr 11/08/18 11/08/18 11/08/18 11:33 16:18 19:52 Hgb Hct PT INR POC Glucose 260 H 140 H 163 H 11/08/18 11/09/18 11/09/18 20:10 05:30 05:30 Hgb 10.3 L Hct 31.1 L PT 13.4 H INR 1.3 H POC Glucose 133 H 11/09/18 07:17 Hgb Hct PT INR POC Glucose 123 H Medications Administered Current Inpatient Medications Amiodarone HCl (Cordarone) 200 mg PO DAILY [facility] Stop: 11/30/18 08:59 Last Admin: 11/09/18 08:20 Dose: 200 mg Documented by: Aspirin (Ecotrin Ectab) 81 mg PO DAILY [facility] Stop: 12/09/18 09:29 Calcium Acetate (Phoslo) 1,334 mg PO TIDM [facility] Stop: 11/30/18 07:59 Last Admin: 11/09/18 08:20 Dose: 1,334 mg Documented by: Carvedilol (Coreg) 50 mg PO BID [facility] Stop: 12/05/18 20:59 Last Admin: 11/09/18 08:20 Dose: 50 mg Documented by: Dextrose (Dextrose 50%) 25 - 50 ml IV UD PRN; Protocol PRN Reason: Hypoglycemia Protocol Stop: 11/29/18 19:14 Glucagon (Glucagen) 1 mg IM UD PRN; Protocol PRN Reason: Hypoglycemia Protocol Stop: 11/29/18 19:14 Glucose (Glucose 40%) 15 - 30 gm PO UD PRN; Protocol PRN Reason: Hypoglycemia Protocol Stop: 11/29/18 19:14 Glucose (Dex4 Glucose) 4 - 8 tabs PO UD PRN; Protocol PRN Reason: Hypoglycemia Protocol Stop: 11/29/18 19:14 Hydralazine HCl (Hydralazine Hcl) 5 mg IV Q6H PRN PRN Reason: Hypertension Stop: 12/07/18 08:14 Hydralazine HCl (Apresoline) 50 mg PO TID [facility] Stop: 12/08/18 13:59 Last Admin: 11/09/18 08:20 Dose: 50 mg Documented by: Acetaminophen (Ofirmev) 1,000 mg in 100 mls @ 400 mls/hr IV Q8H PRN PRN Reason: Pain Stop: 11/30/18 09:44 Last Infusion: 10/31/18 22:23 Dose: Infused Documented by: Promethazine HCl 12.5 mg/ (Sodium Chloride) 50.5 mls @ 202 mls/hr IV Q6H PRN PRN Reason: Nausea And Vomiting Stop: 12/01/18 18:21 Last Infusion: 11/01/18 19:15 Dose: Infused Documented by: Ceftriaxone Sodium 2,000 mg/ (Dextrose) 70 mls @ 100 mls/hr IV DAILY@1800 [facility]; Protocol Stop: 11/16/18 17:59 Last Infusion: 11/08/18 18:09 Dose: Infused Documented by: Insulin Aspart (Novolog Flexpen) 0 units SC ACHS [facility]; Protocol Stop: 12/06/18 20:59 Last Admin: 11/09/18 08:18 Dose: 4 units Documented by: Insulin Glargine (Lantus Solostar Pen) 7 units SQ QPM [facility]; Protocol Stop: 12/08/18 16:29 Last Admin: 11/08/18 17:20 Dose: 7 units Documented by: Lidocaine/Prilocaine (Emla 2.5%) 1 ea EXT PRN PRN PRN Reason: DIALYSIS Stop: 11/29/18 18:20 Lorazepam (Ativan) 0.5 mg PO Q8 PRN PRN Reason: Anxiety Stop: 12/02/18 17:49 Miscellaneous (Carbohydrates For Hypoglycemia) 15 - 30 gm PO UD PRN PRN Reason: Hypoglycemia Treatment Stop: 11/29/18 19:14 Miscellaneous Information (Consult Glycemic Management Pharmacy) 1 ea N/A UD PRN PRN Reason: Consult Stop: 11/29/18 18:52 Morphine Sulfate (Morphine Sulfate) 0.5 mg IV Q4H PRN PRN Reason: Pain Stop: 11/13/18 18:20 Last Admin: 11/06/18 23:38 Dose: 0.5 mg Documented by: Polyethylene Glycol (Miralax Powder Packet) 17 gm PO DAILY [facility] Stop: 12/04/18 15:14 Last Admin: 11/09/18 08:21 Dose: Not Given Documented by: Ranitidine HCl (Zantac) 150 mg PO BID [facility] Stop: 12/01/18 20:59 Last Admin: 11/09/18 08:20 Dose: 150 mg Documented by: Torsemide (Demadex) 20 mg PO DAILY [facility] Stop: 11/30/18 08:59 Last Admin: 11/09/18 08:20 Dose: 20 mg Documented by: Warfarin Sodium (Coumadin) 4 mg PO DAILY@1600 [facility] Stop: 11/29/18 18:59 Last Admin: 10/30/18 21:41 Dose: 4 mg Documented by:
[2018-11-09] MEDS: ASPIRIN 81 MG ECTAB PO SCH (12:05)
--- NOTE | 2018-11-09 15:27 | Infectious Disease Progress Nt ---
Date of Service November 09, 2018 Assessment & Plan (1) Streptococcus bovis infection: Patient with strep bovis bacteremia/sepsis with colonoscopy showing only polyps. Endocarditis a possibility, and patient also within plan to AICD. Favor 4 weeks of IV ceftriaxone. Will discuss with all involved. Will follow. Subjective Patient seen in follow-up for strep bovis bacteremia. Offers no new complaints today. Remains afebrile. Tolerating ceftriaxone without apparent difficulty Review of Systems Review of Systems: All systems reviewed & are unremarkable except as noted in HPI & below Physical Exam Constitutional: WD/WN, vitals as above + ill appearing and comfortable; no acute distress Eyes: PERRL, conjunctivae normal, anicteric sclerae ENMT: external ear and nose normal, oropharynx normal Neck: trachea midline, no thyromegaly neck nontender Respiratory: normal respiratory effort, lungs clear to auscultation normal percussion; no respiratory distress and does not use accessory muscles Cardiovascular: Rate/Rhythm: regular rate and regular rhythm Heart Sounds: normal S1 and normal S2; no gallop, no murmur and no cardiac rub Vessels: normal peripheral pulses; no JVD Gastrointestinal (Abdomen): normal bowel sounds, soft, nontender, no hepatosplenomegaly Inspection/Auscultation: abdomen normal to inspection and + abdomen distended Percussion/Palpation: + abdomen tender; no hepatosplenomegaly and no abdominal mass Musculoskeletal: no cyanosis or clubbing, extremities motor strength 5/5 Spine: thoracic spine normal to inspection and lumbar spine normal to inspection; no cervical spinal tenderness Skin: no rashes, warm and dry normal turgor; no lesions Neurologic: patellar DTR's 2+ bilat, sensation intact moves all extremities and awake; no focal motor deficits Motor/Sensory: no sensory deficit Psychiatric: A+Ox3, euthymic affect Orientation: cooperative Lymphatic: no cervical or axillary lymphadenopathy no inguinal lymphadenopathy Results & Data Vital Signs (Past 12 Hours) Vital Signs Temp Pulse Pulse Pulse Resp BP Pulse Ox 11/09/18 15:18 36.5 C 61 16 179/73 H 94 11/09/18 12:00 36.4 C L 60 20 169/72 H 96 11/09/18 08:00 60 11/09/18 06:47 36.9 C 62 24 173/74 H 98 11/09/18 03:36 36.6 C 60 18 168/72 H 95 Laboratory Results Short CBC 11/09/18 Range/Units 05:30 Hgb 10.3 L (12.0-16.0) g/dL Hct 31.1 L (37-47) % Diagnostic Findings Microbiology 10/31/18 12:26 Blood Blood Culture - Final No growth 10/31/18 12:23 Blood Blood Culture - Final No growth 11/02/18 05:00 Urine,Clean Catch Urine Culture - Final No growth - less than 1,000 colonies/mL. 10/31/18 06:40 Stool Shiga Toxin Test - Final 10/31/18 06:40 Stool Stool Culture - Final No Salmonella isolated, No Shigella isolated, No Campylobacter jejuni isolated. 10/30/18 20:43 Blood Blood Culture - Final Streptococcus bovis 10/30/18 20:34 Blood Blood Culture - Final Streptococcus bovis
--- NOTE | 2018-11-09 15:27 | Hospitalist Progress Note ---
Date of Service November 09, 2018 Assessment & Plan (1) Gram-positive cocci bacteremia: Bacteremia Acute Endocarditis Blood culture: Streptococcus Bovis -To R/O GI malignancy Repeat Blood cultures: No growth to date Continue Ceftriaxone-- Needs 4 weeks of IV Abx Appreciate ID/Cardiology Input Heavily calcified valvular annulus formation--MANISH will provide limited information very complex patient--if device needs removal, it will be a very high risk procedure as per Cardiology AICD device interrogation showed multiple AICD shock per and on admission EGD: Normal Colonoscopy: Multiple polyps removed; Internal hemorrhoids Received Vitamin K, FFP, DDAVP for procedure Pathology:Pending Appreciate GI help INR:1.3 Continue amiodarone, Coreg Monitor electrolytes Monitor H&H No bleeding issues currently Continue ranitidine BID Resume Continue today (2) Endocarditis: H/O endocarditis which was treated conservatively with several weeks of antibiotics in 2016. Management as above (3) Sepsis: Due to bacteremia, endocarditis continue Abx as above Multiple AICD Shock AICD interrogation shows frequent ventricular fibrillation with multiple AICD shock prior to patient's admission Patient denies symptoms Appreciate input from EP cardiology Device setting adjusted Continue current meds No recurrence of AICD shock (4) Nausea, vomiting and diarrhea: Stool studies negative Resolved (5) Abdominal pain: Resolved (6) Ascites: (7) Elevated LFTs: Possibly secondary to sepsis-Improving Normalized CT ABD/PELVIS: Small amount of abdominal and pelvic ascites U/S liver mild gallbladder wall thickening 4 mm no evidence of acute cholecys titis: Monitor (8) Weakness: Secondary to above PT/OT Not interested in rehab placement (9) Cough: Reported non-productive cough x 1 week Negative influenza PCR CXR: Mild interstitial pulmonary edema and trace bilateral pleural effusions. Cardiomegaly. Resolved (10) Elevated troponin: Mild Troponin elevation Secondary to sepsis, in the setting of end-stage renal disease, poor renal clearance Denies chest pain or shortness of breath Paced rhythm on EKG (11) End-stage renal disease (ESRD): On HD on , Sat Missed Dialysis 10/29/18 Dialysis as per Nephro Appreciate Nephrology help (12) Idiopathic cardiomyopathy: S/P ICD Echo: 04/2018: EF: 40%, mild concentric LVH, moderate dilated RV, severely dilated R atrium, moderate tricupsid regurgitation (13) Paroxysmal atrial fibrillation: Continue on Coreg, Amiodarone Resume Coumadin (14) Hx of supraventricular tachycardia: Continue Coreg, amiodarone (15) Diabetes mellitus, type II: Insulin dependent A1c: 8.7 on 03/2018 Continue Lantus, Novolog sliding scale Glycemic pharmacy consult (16) HTN (hypertension): BP elevated Asymptomatic Increased Hydralazine to 50mg TID BP better but still not at target Monitor (17) GERD (gastroesophageal reflux disease): Continue Ranitidine DVT Px: Coumadin Code Status Full Code Subjective Patient is seen and examined at bedside Abd discomfort resolved Denies any blood in stools/bleeding issues Blood pressure better Plan to resume Aspirin, coumadin today Denies chest pain, SOB, dizziness, nausea Pathology pending Review of Systems Review of Systems: All systems reviewed & are unremarkable except as noted in HPI & below Physical Exam Physical Exam: Physical Exam: Vitals signs as noted above General Appearance:Moderately built and nourished, no apparent distress Head: normocephalic, Atraumatic Eyes: normal inspection, EOMI Neck: supple, Trachea midline Respiratory/Chest: Normal breath sounds, CTA Cardiovascular: S1, S2, No murmur Abdomen/GI:Soft, Non tender, Bowel sounds present Extremities/Musculoskelatal:normal inspection, Trace edema Neurologic/Psych:AAOX3, grossly no focal neurological deficits Skin: normal color, warm Results & Data Vital Signs (Past 12 Hours) Vital Signs Temp Pulse Pulse Pulse Resp BP Pulse Ox 11/09/18 15:18 36.5 C 61 16 179/73 H 94 11/09/18 12:00 36.4 C L 60 20 169/72 H 96 11/09/18 08:00 60 11/09/18 06:47 36.9 C 62 24 173/74 H 98 11/09/18 03:36 36.6 C 60 18 168/72 H 95 Laboratory Results Short CBC 11/09/18 Range/Units 05:30 Hgb 10.3 L (12.0-16.0) g/dL Hct 31.1 L (37-47) % (1) Endocarditis Endocarditis type: infective Infective endocarditis organism: bacterial Chronicity: unspecified Qualified Code(s): I33.0 - Acute and subacute infective endocarditis (2) Sepsis Sepsis type: Streptococcus, other Qualified Code(s): A40.8 - Other streptococcal sepsis (3) Abdominal pain Abdominal location: periumbilical Qualified Code(s): R10.33 - Periumbilical pain (4) Ascites Ascites type: other type Qualified Code(s): R18.8 - Other ascites (5) Diabetes mellitus, type II Diabetes mellitus senior living insulin use: unspecified 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 Diabetes mellitus complication status: with kidney complications Diabetes mellitus complication detail: with chronic kidney disease Chronic kidney disease stage: on chronic dialysis Qualified Code(s): E11.22 - 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 diabetic chronic kidney disease; N18.6 - End stage renal disease; Z99.2 - Dependence on renal dialysis (6) HTN (hypertension) Hypertension type: unspecified Qualified Code(s): I10 - Essential (primary) hypertension (7) GERD (gastroesophageal reflux disease) Esophagitis presence: esophagitis presence not specified Qualified Code(s): K21.9 - Gastro-esophageal reflux disease without esophagitis
[2018-11-09] MEDS: cefTRIAXone SODIUM 2,000 MG in DEXTROSE 5% 50 ML IV SCH (16:34)
[2018-11-09] MEDS: WARFARIN SOD 4 MG TAB PO SCH (16:35)
[2018-11-09] MEDS: INSULIN GLARGINE SOLOSTAR 100 UNITS/ML 3 ML PEN SQ SCH (20:45)
[2018-11-09] MEDS ORDERED: COUGH DROP (SUGAR FREE) LOZ 24 LOZ/1 BOX BUCCAL ONE (23:13)
[2018-11-10 07:00] LABS: Hematocrit (blood only) 32.7 % (37-47); Hemoglobin 11.1 g/dL (12.0-16.0); Mean Corpuscular Hgb Conc 33.9 g/dL (32-36); Mean Corpuscular Volume 98.2 fL (80-100); Mean Platelet Volume 12.4 fL (7.4-10.4); Platelet Count 73 K/uL (130-400); RDW Coefficient of Variation 16.1 % (11.5-14.5); RDW Standard Deviation 54.5 fL (36.4-46.3); Red Blood Count 3.33 M/uL (4.2-5.4); White Blood Count 7.01 K/uL (4.8-10.8)
[2018-11-10 07:04] LABS: INR 1.2 (0.9-1.1); Prothrombin Time 12.5 Seconds (9.0-12.0)
[2018-11-10] MEDS: CALCIUM ACETATE 667 MG CAP PO SCH ×3 (08:20→18:07)
[2018-11-10] MEDS: ASPIRIN 81 MG ECTAB PO SCH (08:20)
[2018-11-10] MEDS: TORSEMIDE 10 MG TAB PO SCH (08:21)
[2018-11-10] MEDS: CARVEDILOL 25 MG TAB PO SCH ×2 (08:21→21:15)
[2018-11-10] MEDS: AMIODARONE 200 MG TAB PO SCH (08:21)
[2018-11-10] MEDS: HydrALAZINE TAB 50 MG TAB PO SCH ×3 (08:21→21:18)
[2018-11-10] MEDS: INSULIN ASPART 100 UNITS/ML 3 ML PEN SC SCH ×4 (08:23→21:13)
[2018-11-10] MEDS: POLYETHYLENE (MIRALAX) 17 GM PACK PO SCH (08:24)
[2018-11-10] MEDS ORDERED: SODIUM CHLORIDE 0.9% 1000ML 1,000 ML IV PRN (08:34)
--- NOTE | 2018-11-10 10:14 | Nephrology Progress Note ---
Date of Service November 10, 2018 Assessment & Plan (1) End-stage renal disease (ESRD): Patient with ESRD on dialysis Friday. Patient was seen while on dialysis. She is tolerating dialysis well today. She is planned for 4 hours and target UF of 3 L. From renal standpoint patient can be discharged. If discharge she will continue outpatient dialysis . (2) Gram-positive cocci bacteremia: Due to Streptococcus bovis. Patient is receiving ceftriaxone per primary team and ID. Renally dose medications for GFR less than 20. 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 Patient current access for antibiotics was reported did not walking. Consider putting the new midline catheter. Avoid PICC line in this patient to preserve dialysis access. (3) Anemia of renal disease: Patient with anemia due to renal disease. Hemoglobin today of 11.1. We will hold Epogen. (4) HTN (hypertension): Her blood pressure is better but still above target. Continue current regimen. Patient does not want Norvasc. Hold morning BP meds pre HD on dialysis days. Subjective ESRD patient seen and examined while on dialysis. She is complaining of cough and episodes of shortness of breath due to long cough spells. No leg swelling. She is tolerating dialysis well this morning. Review of Systems Review of Systems: All systems reviewed & are unremarkable except as noted in HPI & below Physical Exam Physical Exam: General exam: Appears comfortable, no acute distress HEENT: Pupils are equal and reactive to light Neck: No JVD, neck is supple trachea is midline Respiratory system: Clear breath sounds bilaterally. Gastrointestinal: Abdomen is soft, non distended, non tender, bowel sounds are present CVS: Regular rate and rhythm. No murmurs, rubs or gallops Musculoskeletal: No joint or muscle tenderness Extremities: Non tender, no edema, peripheral pulses are present Neuro: Oriented, no tremors, no focal neurological deficits Skin: No rashes Access: left FA AVG Results & Data Vital Signs (Past 12 Hours) Vital Signs Temp Pulse Pulse Pulse Resp BP Pulse Ox 11/10/18 08:18 36.3 C L 71 20 161/73 H 96 11/10/18 04:51 36.5 C 61 18 184/78 H 96 11/09/18 23:57 36.8 C 60 20 163/71 H 96 11/09/18 22:58 60 Laboratory Results Laboratory Results - last 24 hr 11/09/18 11/09/18 11/09/18 11:17 16:13 20:27 WBC RBC Hgb Hct MCV MCH MCHC RDW Std Deviation RDW Coeff of Jacobo Plt Count MPV PT INR POC Glucose 210 H 158 H 153 H 11/10/18 11/10/18 11/10/18 06:36 06:36 07:41 WBC 7.01 RBC 3.33 L Hgb 11.1 L Hct 32.7 L MCV 98.2 MCH 33.3 MCHC 33.9 RDW Std Deviation 54.5 H RDW Coeff of Jacobo 16.1 H Plt Count 73 L MPV 12.4 H PT 12.5 H INR 1.2 H POC Glucose 206 H (1) HTN (hypertension) Hypertension type: unspecified Qualified Code(s): I10 - Essential (primary) hypertension
--- NOTE | 2018-11-10 10:39 | Pharmacy Report ---
Pharmacy Glycemic Short Note 2 - Date of Service November 10, 2018 - Glycemic Short BSG Results (Last 24 hours): 11/09/18 11/09/18 11/09/18 11:17 16:13 20:27 POC Glucose 210 H 158 H 153 H 11/10/18 07:41 POC Glucose 206 H OUTPATIENT ANTIDIABETIC REGIMEN: * Lantus 20 units QPM * Novolog 12 units TID with meals * Patient's A1c not obtained. This would be unreliable in ESRD patients d/t interactions between the A1c analyzing technique and high levels of urea in ESRD, reduced RBC life span, iron deficiency anemia, and EPO administration. HbA1c > 7.5% in ESRD patient may overestimate the extent of hyperglycemia in ESRD patients. ASSESSMENT 11/10 * Patient received 20 units of insulin yesterday (7 of this being basal) * BSGs were mostly below goal but fasting is elevated at 206 mg/dL this AM. This has increased and is most likely from improved po intake on reduce basal insulin. Will plan to slightly increase the PM basal and tighten the CF in the meantime to allow for more daytime coverage until basal dose given this evening. 11/08 * Ellie received a total of 17 units of insulin yesterday * Fasting BSG of 161 mg/dL is elevated. Patient was ordered to receive Lantus 7 units last evening if BSG was > 140 mg/dL. BSG was >140 mg/dL but patient was not administered insulin, therefore she remains basal deficient. Partial dose of 4 units given with lunch. She is ordered 7 units at dinnertime. * Continue current Novolog coverage 11/07 * Fasting BSG elevated at 183 mg/dL. Patient did not receive any basal insulin on 11/05 or 11/06, therefore she is likely basal deficient. Yesterday she was ordered a set dose of Lantus 7 units qHS (starting 11/07 PM). I have continued this dose and gave an extra 4 units this AM x 1. * Post prandial BSGs are mostly at goal. Ellie has been off the floor for HD therefore a lunch BSG was not obtained. 11/06 * Ms. Villar received ZERO units of insulin yesterday (compared to 24 units the day prior) * She is currently NPO for an EGD/colonoscopy today * Fasting = 115 mg/dL * Postprandial BSGs on the lower side * In terms of basal requirements, it appears that she's needing an average of 7 units (with 15 units and then held days). Will schedule this dose instead of providing a scaled dose. PLAN FOR INPATIENT GLYCEMIC CONTROL: * Basal insulin: increase * Lantus 10 units qPM * Bolus insulin - tighten CF * NovoLog per scale ACHS or Q6hrs while NPO * Goal Range: Low 120 mg/dL - High 160 mg/dL * Correction Factor: 25 mg/dL/unit * Nutritional / Prandial insulin per carb ratio of 1 unit per 12 grams CHO consumed PLAN FOR DISCHARGE: * Home insulin regimen reported: Lantus 20 units QPM; Novolog 12 units TID with meals. * Recommend patient be discharged on their home insulin regimen as long as she was not reporting significant low BSGs or hyperglycemia.
--- NOTE | 2018-11-10 14:30 | Infectious Disease Progress Nt ---
Date of Service November 10, 2018 Assessment & Plan (1) Streptococcus bovis infection: Patient with strep bovis bacteremia/sepsis with colonoscopy showing only polyps. Endocarditis a possibility, and patient also within plan to AICD. Favor 4 weeks of IV ceftriaxone. Will discuss with all involved. Will follow. Subjective Patient seen in follow-up for strep bovis bacteremia. Offers no new complaints today. Remains afebrile. Tolerating ceftriaxone without apparent difficulty Review of Systems Review of Systems: All systems reviewed & are unremarkable except as noted in HPI & below Physical Exam Constitutional: WD/WN, vitals as above + ill appearing and comfortable; no acute distress Eyes: PERRL, conjunctivae normal, anicteric sclerae ENMT: external ear and nose normal, oropharynx normal Neck: trachea midline, no thyromegaly neck nontender Respiratory: normal respiratory effort, lungs clear to auscultation normal percussion; no respiratory distress and does not use accessory muscles Cardiovascular: Rate/Rhythm: regular rate and regular rhythm Heart Sounds: normal S1 and normal S2; no gallop, no murmur and no cardiac rub Vessels: normal peripheral pulses; no JVD Gastrointestinal (Abdomen): normal bowel sounds, soft, nontender, no hepatosplenomegaly Inspection/Auscultation: abdomen normal to inspection and + abdomen distended Percussion/Palpation: + abdomen tender; no hepatosplenomegaly and no abdominal mass Musculoskeletal: no cyanosis or clubbing, extremities motor strength 5/5 Spine: thoracic spine normal to inspection and lumbar spine normal to inspection; no cervical spinal tenderness Skin: no rashes, warm and dry normal turgor; no lesions Neurologic: patellar DTR's 2+ bilat, sensation intact moves all extremities and awake; no focal motor deficits Motor/Sensory: no sensory deficit Psychiatric: A+Ox3, euthymic affect Orientation: cooperative Lymphatic: no cervical or axillary lymphadenopathy no inguinal lymphadenopathy Results & Data Vital Signs (Past 12 Hours) Vital Signs Temp Pulse Pulse Pulse Resp BP BP 11/10/18 14:18 68 16 157/89 H 11/10/18 13:00 60 160/67 H 11/10/18 12:40 61 181/73 H 11/10/18 12:20 63 163/90 H 11/10/18 12:00 60 167/90 H 11/10/18 11:40 61 149/68 H 11/10/18 11:20 63 133/97 11/10/18 11:00 61 133/106 H 11/10/18 10:40 63 160/69 H 11/10/18 10:20 60 160/66 H 11/10/18 10:00 61 162/72 H 11/10/18 09:37 64 161/74 H 11/10/18 09:31 36.6 C 64 11/10/18 08:18 36.3 C L 71 20 161/73 H 11/10/18 04:51 36.5 C 61 18 184/78 H Pulse Ox 11/10/18 14:18 98 11/10/18 13:00 11/10/18 12:40 11/10/18 12:20 11/10/18 12:00 11/10/18 11:40 11/10/18 11:20 11/10/18 11:00 11/10/18 10:40 11/10/18 10:20 11/10/18 10:00 11/10/18 09:37 11/10/18 09:31 11/10/18 08:18 96 11/10/18 04:51 96 Laboratory Results Short CBC 11/10/18 Range/Units 06:36 WBC 7.01 (4.8-10.8) K/uL Hgb 11.1 L (12.0-16.0) g/dL Hct 32.7 L (37-47) % Plt Count 73 L (130-400) K/uL Diagnostic Findings Microbiology 10/31/18 12:26 Blood Blood Culture - Final No growth 10/31/18 12:23 Blood Blood Culture - Final No growth 11/02/18 05:00 Urine,Clean Catch Urine Culture - Final No growth - less than 1,000 colonies/mL. 10/31/18 06:40 Stool Shiga Toxin Test - Final 10/31/18 06:40 Stool Stool Culture - Final No Salmonella isolated, No Shigella isolated, No Campylobacter jejuni isolated. 10/30/18 20:43 Blood Blood Culture - Final Streptococcus bovis 10/30/18 20:34 Blood Blood Culture - Final Streptococcus bovis
--- NOTE | 2018-11-10 15:30 | Hospitalist Progress Note ---
Date of Service November 10, 2018 Assessment & Plan (1) Gram-positive cocci bacteremia: Bacteremia Acute Endocarditis Blood culture: Streptococcus Bovis -Ruled out GI malignancy Repeat Blood cultures: No growth to date Continue Ceftriaxone-- Needs 4 weeks of IV Abx Appreciate ID/Cardiology Input Heavily calcified valvular annulus formation--MANISH will provide limited information very complex patient--if device needs removal, it will be a very high risk procedure as per Cardiology AICD device interrogation showed multiple AICD shock per and on admission EGD: Normal Colonoscopy: Multiple polyps removed; Internal hemorrhoids Received Vitamin K, FFP, DDAVP for procedure Pathology:No Malignancy Appreciate GI help INR:1.2 Continue amiodarone, Coreg Monitor electrolytes Monitor H&H No bleeding issues currently Continue ranitidine BID Resumed Continue yesterday Avoid PICC line as per Nephrology Needs JACC line placement and Antibiotics arranged prior to discharge Wound Specialist consulted for JACC line placement (2) Endocarditis: H/O endocarditis which was treated conservatively with several weeks of antibiotics in 2016. Management as above (3) Sepsis: Due to bacteremia, endocarditis continue Abx as above Multiple AICD Shock AICD interrogation shows frequent ventricular fibrillation with multiple AICD shock prior to patient's admission Patient denies symptoms Appreciate input from EP cardiology Device setting adjusted Continue current meds No recurrence of AICD shock (4) Nausea, vomiting and diarrhea: Stool studies negative Resolved (5) Abdominal pain: Resolved (6) Ascites: (7) Elevated LFTs: Possibly secondary to sepsis-Improving Normalized CT ABD/PELVIS: Small amount of abdominal and pelvic ascites U/S liver mild gallbladder wall thickening 4 mm no evidence of acute cholecystitis: Monitor (8) Weakness: Secondary to above PT/OT Not interested in rehab placement (9) Cough: Reported non-productive cough x 1 week Negative influenza PCR CXR: Mild interstitial pulmonary edema and trace bilateral pleural effusions. Cardiomegaly. Resolved (10) Elevated troponin: Mild Troponin elevation Secondary to sepsis, in the setting of end-stage renal disease, poor renal clearance Denies chest pain or shortness of breath Paced rhythm on EKG (11) End-stage renal disease (ESRD): On HD on , , Sat Missed Dialysis 10/29/18 Dialysis as per Nephro Appreciate Nephrology help (12) Idiopathic cardiomyopathy: S/P ICD Echo: 04/2018: EF: 40%, mild concentric LVH, moderate dilated RV, severely dilated R atrium, moderate tricupsid regurgitation (13) Paroxysmal atrial fibrillation: Continue on Coreg, Amiodarone On Coumadin (14) Hx of supraventricular tachycardia: Continue Coreg, amiodarone (15) Diabetes mellitus, type II: Insulin dependent A1c: 8.7 on 03/2018 Continue Lantus, Novolog sliding scale Glycemic pharmacy consult (16) HTN (hypertension): BP elevated Asymptomatic Patient doesn't want amlodipine Increased Hydralazine to 50mg TID BP better Monitor (17) GERD (gastroesophageal reflux disease): Continue Ranitidine DVT Px: Coumadin Code Status Full Code Disposition: Patient refuses Rehab placement Needs JACC line placed and Abx arranged prior to discharge with Home Health Services Subjective Patient is seen and examined at bedside Had HD this morning Offers no complaints IV Access not working Needs JACC line placement--Wound Specialist consulted Denies any blood in stools/bleeding issues BP continues to improve Denies chest pain, SOB, dizziness, nausea Pathology-- No malignancy Family at bedside Eager to get discharged Physical Exam Physical Exam: Physical Exam: Vitals signs as noted above General Appearance:Moderately built and nourished, no apparent distress Head: normocephalic, Atraumatic Eyes: normal inspection, EOMI Neck: supple, Trachea midline Respiratory/Chest: Normal breath sounds, CTA Cardiovascular: S1, S2, No murmur Abdomen/GI:Soft, Non tender, Bowel sounds present Extremities/Musculoskelatal:normal inspection, Trace edema Neurologic/Psych:AAOX3, grossly no focal neurological deficits Skin: normal color, warm Results & Data Vital Signs (Past 12 Hours) Vital Signs Temp Pulse Pulse Pulse Resp BP BP 11/10/18 14:18 68 16 157/89 H 11/10/18 14:15 36.5 C 64 158/80 H 11/10/18 13:20 60 167/73 H 11/10/18 13:00 60 160/67 H 11/10/18 12:40 61 181/73 H 11/10/18 12:20 63 163/90 H 11/10/18 12:00 60 167/90 H 11/10/18 11:40 61 149/68 H 11/10/18 11:20 63 133/97 11/10/18 11:00 61 133/106 H 11/10/18 10:40 63 160/69 H 11/10/18 10:20 60 160/66 H 11/10/18 10:00 61 162/72 H 11/10/18 09:37 64 161/74 H 11/10/18 09:31 36.6 C 64 11/10/18 08:18 36.3 C L 71 20 161/73 H 11/10/18 04:51 36.5 C 61 18 184/78 H Pulse Ox 11/10/18 14:18 98 11/10/18 14:15 11/10/18 13:20 11/10/18 13:00 11/10/18 12:40 11/10/18 12:20 11/10/18 12:00 11/10/18 11:40 11/10/18 11:20 11/10/18 11:00 11/10/18 10:40 11/10/18 10:20 11/10/18 10:00 11/10/18 09:37 11/10/18 09:31 11/10/18 08:18 96 11/10/18 04:51 96 Laboratory Results Short CBC 11/10/18 Range/Units 06:36 WBC 7.01 (4.8-10.8) K/uL Hgb 11.1 L (12.0-16.0) g/dL Hct 32.7 L (37-47) % Plt Count 73 L (130-400) K/uL (1) Diabetes mellitus, type II Chronic kidney disease stage: on chronic dialysis Diabetes mellitus complication detail: with chronic kidney disease Diabetes mellitus complication status: with kidney complications Diabetes mellitus nursing home insulin use: unspecified manager intermediate insulin use status Qualified Code(s): E11.22 - 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 diabetic chronic kidney disease; N18.6 - End stage renal disease; Z99.2 - Dependence on renal dialysis (2) Ascites Ascites type: other type Qualified Code(s): R18.8 - Other ascites (3) Endocarditis Chronicity: unspecified Endocarditis type: infective Infective endocarditis organism: bacterial Qualified Code(s): I33.0 - Acute and subacute infective endocarditis (4) Sepsis Sepsis type: Streptococcus, other Qualified Code(s): A40.8 - Other streptococcal sepsis (5) GERD (gastroesophageal reflux disease) Esophagitis presence: esophagitis presence not specified Qualified Code(s): K21.9 - Gastro-esophageal reflux disease without esophagitis (6) Abdominal pain Abdominal location: periumbilical Qualified Code(s): R10.33 - Periumbilical pain (7) HTN (hypertension) Hypertension type: unspecified Qualified Code(s): I10 - Essential (primary) hypertension
[2018-11-10] MEDS: WARFARIN SOD 4 MG TAB PO SCH (16:43)
--- NOTE | 2018-11-10 17:34 | Procedure Note ---
Procedure Note Date of Service November 10, [address] Hebert to place JACC catheter for poor access and shelter abx R subclavian JACC line procedure note: after informed consent area anestized with 1% lidocaine using landmarks R subclavian accessed and wire placed without difficulty. breakaways sheath placed and then single lumen catheter placed. sheath removed port with good flow secured in place with statlock and tegederm placed CXR pending Coding
--- NOTE | 2018-11-10 18:06 | XRay Report ---
XR chest 1V portable CLINICAL HISTORY: R subclavian placement tube position COMPARISON STUDY: 10/31/2018 FINDINGS: Right subclavian line placed in the superior vena cava. No evidence for pneumothorax. Findings consistent with developing infiltrative process right base. Minimal stable atelectasis left base. IMPRESSION: 1. Right subclavian line placed in the superior vena cava. 2. No evidence pneumothorax. 3. Small parenchymal infiltrate right base The above report was generated using voice recognition software. It may contain grammatical, syntax or spelling errors. Electronically signed by: Isaac Marr M.D. 11/10/2018 6:04 PM
[2018-11-10] MEDS: cefTRIAXone SODIUM 2,000 MG in DEXTROSE 5% 50 ML IV SCH (19:17)
[2018-11-10] MEDS ORDERED: INSULIN GLARGINE SOLOSTAR 100 UNITS/ML 3 ML PEN SQ SCH (21:00)
[2018-11-11] MEDS ORDERED: GUAIFENESIN/CODEINE 100MG/10MG 5ML UDC PO PRN (02:17)
[2018-11-11] MEDS ORDERED: BENZONATATE 100 MG CAPSULE PO PRN (02:48)
[2018-11-11 07:26] LABS: Hematocrit (blood only) 32.1 % (37-47); Hemoglobin 10.6 g/dL (12.0-16.0)
[2018-11-11 07:35] LABS: INR 1.3 (0.9-1.1)
[2018-11-11 08:11] LABS: BUN Creatinine Ratio 5.8 (10-20); Calcium 8.8 mg/dl (8.5-10.1); Creatinine Clr Calc Pharmacy 10.5 ml/min; Est GFR (African American) 10.7; Est GFR (Non-African American) 9.2; Potassium 4.3 mmol/L (3.5-5.1)
[2018-11-11] MEDS: CALCIUM ACETATE 667 MG CAP PO SCH ×2 (08:25→12:44)
[2018-11-11] MEDS: AMIODARONE 200 MG TAB PO SCH (08:25)
[2018-11-11] MEDS: HydrALAZINE TAB 50 MG TAB PO SCH (08:25)
[2018-11-11] MEDS: TORSEMIDE 10 MG TAB PO SCH (08:25)
[2018-11-11] MEDS: CARVEDILOL 25 MG TAB PO SCH (08:26)
[2018-11-11] MEDS: ASPIRIN 81 MG ECTAB PO SCH (08:26)
[2018-11-11] MEDS: POLYETHYLENE (MIRALAX) 17 GM PACK PO SCH (08:28)
[2018-11-11] MEDS: INSULIN ASPART 100 UNITS/ML 3 ML PEN SC SCH ×2 (08:30→12:35)
[2018-11-11] MEDS ORDERED: INSULIN GLARGINE SOLOSTAR 100 UNITS/ML 3 ML PEN SQ ONE (09:15)
[2018-11-11] MEDS: ACETAMINOPHEN 1,000 MG/100 ML VIAL IV PRN (09:53)
--- NOTE | 2018-11-11 11:50 | Hospitalist Progress Note ---
Date of Service November 11, 2018 Assessment & Plan (1) Gram-positive cocci bacteremia: Bacteremia Acute Endocarditis Blood culture: Streptococcus Bovis -Ruled out GI malignancy Repeat Blood cultures: No growth to date Continue Ceftriaxone-- Needs 4 weeks of IV Abx Appreciate ID/Cardiology Input Heavily calcified valvular annulus formation--MANISH will provide limited information very complex patient--if device needs removal, it will be a very high risk procedure as per Cardiology AICD device interrogation showed multiple AICD shock per and on admission EGD: Normal Colonoscopy: Multiple polyps removed; Internal hemorrhoids Received Vitamin K, FFP, DDAVP for procedure Pathology:No Malignancy Appreciate GI help INR:1.3 Continue amiodarone, Coreg Monitor electrolytes Monitor H&H No bleeding issues currently Continue ranitidine BID Continue Coumadin Had JACC line placement on 11/10/18 (2) Endocarditis: H/O endocarditis which was treated conservatively with several weeks of antibiotics in 2016. Management as above (3) Sepsis: Due to bacteremia, endocarditis continue Abx as above Multiple AICD Shock AICD interrogation shows frequent ventricular fibrillation with multiple AICD shock prior to patient's admission Patient denies symptoms Appreciate input from EP cardiology Device setting adjusted Continue current meds No recurrence of AICD shock Needs follow up with Cardiology as outpatient (4) Nausea, vomiting and diarrhea: Stool studies negative Resolved (5) Abdominal pain: Resolved (6) Ascites: (7) Elevated LFTs: Possibly secondary to sepsis-Improving Normalized CT ABD/PELVIS: Small amount of abdominal and pelvic ascites U/S liver mild gallbladder wall thickening 4 mm no evidence of acute cholecystitis: Monitor (8) Weakness: Secondary to above PT/OT Not interested in rehab placement (9) Cough: Reported non-productive cough x 1 week Negative influenza PCR CXR: Mild interstitial pulmonary edema and trace bilateral pleural effusions. Cardiomegaly. Resolved (10) Elevated troponin: Mild Troponin elevation Secondary to sepsis, in the setting of end-stage renal disease, poor renal clearance Denies chest pain or shortness of breath Paced rhythm on EKG (11) End-stage renal disease (ESRD): On HD on , Sat Missed Dialysis 10/29/18 Dialysis as per Nephro Appreciate Nephrology help (12) Idiopathic cardiomyopathy: S/P ICD Echo: 04/2018: EF: 40%, mild concentric LVH, moderate dilated RV, severely dilated R atrium, moderate tricupsid regurgitation (13) Paroxysmal atrial fibrillation: Continue on Coreg, Amiodarone On Coumadin (14) Hx of supraventricular tachycardia: Continue Coreg, amiodarone (15) Diabetes mellitus, type II: Insulin dependent A1c: 8.7 on 03/2018 Continue Lantus, Novolog sliding scale Glycemic pharmacy consult (16) HTN (hypertension): Patient doesn't want amlodipine Increased Hydralazine to 50mg TID BP better Monitor (17) GERD (gastroesophageal reflux disease): Continue Ranitidine DVT Px: Coumadin Code Status Full Code Disposition: Patient refuses Rehab placement Plan to discharge home with Home Health Services Subjective Patient is seen and examined at bedside Lying Comfortably in bed Had cough overnight--improving Had JACC line placed yesterday Denies any blood in stools/bleeding issues Denies chest pain, SOB, dizziness, nausea Plan to discharge home today Refuses rehab placement Review of Systems Review of Systems: All systems reviewed & are unremarkable except as noted in HPI & below Physical Exam Physical Exam: Physical Exam: Vitals signs as noted above General Appearance:Moderately built and nourished, no apparent distress Head: normocephalic, Atraumatic Eyes: normal inspection, EOMI Neck: supple, Trachea midline Respiratory/Chest: Decreased breath sounds, CTA Cardiovascular: S1, S2, No murmur Abdomen/GI:Soft, Non tender, Bowel sounds present Extremities/Musculoskelatal:normal inspection, Trace edema Neurologic/Psych:AAOX3, grossly no focal neurological deficits Skin: normal color, warm Results & Data Vital Signs (Past 12 Hours) Vital Signs Temp Pulse Resp BP Pulse Ox 11/11/18 07:00 36.8 C 64 18 175/73 H 99 Laboratory Results Short CBC 11/11/18 Range/Units 06:55 Hgb 10.6 L (12.0-16.0) g/dL Hct 32.1 L (37-47) % BMP 11/11/18 06:55 Sodium 130 L Potassium 4.3 Chloride 96 L Carbon Dioxide 28 BUN 26 H Creatinine 4.44 H Glucose 229 H Calcium 8.8 (1) Endocarditis Endocarditis type: infective Infective endocarditis organism: bacterial Chronicity: unspecified Qualified Code(s): I33.0 - Acute and subacute infective endocarditis (2) Sepsis Sepsis type: Streptococcus, other Qualified Code(s): A40.8 - Other streptococcal sepsis (3) Abdominal pain Abdominal location: periumbilical Qualified Code(s): R10.33 - Periumbilical pain (4) Ascites Ascites type: other type Qualified Code(s): R18.8 - Other ascites (5) Diabetes mellitus, type II 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 use: unspecified nursing home insulin use status Diabetes mellitus complication status: with kidney complications Diabetes mellitus complication detail: with chronic kidney disease Chronic kidney disease stage: on chronic dialysis Qualified Code(s): E11.22 - 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 diabetic chronic kidney disease; N18.6 - End stage renal disease; Z99.2 - Dependence on renal dialysis (6) HTN (hypertension) Hypertension type: unspecified Qualified Code(s): I10 - Essential (primary) hypertension (7) GERD (gastroesophageal reflux disease) Esophagitis presence: esophagitis presence not specified Qualified Code(s): K21.9 - Gastro-esophageal reflux disease without esophagitis
--- NOTE | 2018-11-11 12:11 | Discharge Summary ---
Date of Service November 11, 2018 Admission HPI Per Admitting Provider Pt is 73 y/o F with PMH idiopathic cardiomyopathy, systolic heart failure s/p ICD, SVT and paroxysmal atrial fibrillation on amiodarone and Coumadin, h/o pericardial window in 2014, h/o paroxysmal VT/torsades in setting of sepsis, insulin-dependent DM II, ESRD on HD, labile HTN, HLD, h/o TIA, MINAL refused CPAP, PVD, hyperparathyroidism, depression, anxiety not currently on medication, GERD presented to ER with complaints of N/V/D. Patient states 2 days ago started with vomiting a couple of times a day and vomiting with any attempt of eating. Also reports multiple episodes of diarrhea which she describes as initially soft then liquid and reports it is black in color. Patient also complaining of lower abdominal pain described as aching which is constant. She states was producing small amount of urine however does not believe she has been urinating past 2 days. Patient states past couple days has been feeling very lethargic and generalized weakness. Patient states her blood sugar this morning was 574. Pat ient on Friday, , Friday dialysis schedule. Reports missed dialysis yesterday secondary to feeling ill. Patient states past week has had a nonproductive cough. States today noticed when she laid flat in the ambulance she became short of breath. Also noted orthopnea today while in ER when he was lying supine for CT abdomen. States has been sleeping in recliner past couple of days secondary to GI illness. Patient denies chest pain, palpitations, ICD firing. Denies ill contacts with similar symptoms. Denies recent antibiotic use, recent travel. Denies hematemesis. Feeling chills, unsure if she has had a fever. Patient states 2 days ago was trying to get out of bed and lost her balance and was able to slide herself to the floor. She denies hitting her head or any loss of consciousness. Denies diaphoresis, LIMA, dizziness, syncope, vision changes, neck pain, palpitations, hemoptysis, sore throat, choking, otalgia, rhinorrhea, paresthesias, extremity edema, rashes. History echo 04/2018: EF 40%, mild concentric LVH, moderate dilated RV, severely dilated right atrium, moderate tricuspid regurgitation Admission Exam Per Admitting Provider General: no acute distress, overweight, chronic ill appearance, non-toxic appearing Head: normocephalic, atraumatic Eyes: PERRL, EOM's intact, conjunctiva non-injected, anicteric ENT: normal inspection external ears, nose, mucous membranes mildly dry Neck: supple, trachea midline Lungs: clear, no respiratory distress, no wheezing/rhonchi/rales CV: RRR, systolic murmur, no JVD, no pretibial edema Abd: hypoactive BS, soft, diffuse tenderness to palpation entire abdomen without rebound or guarding Ext: no cyanosis, no calf tenderness, +thrill left arm Neuro: A&O x 3, no focal deficits noted, normal affect Skin: warm, dry Principal Diagnosis Discharge Information Discharge Diagnosis Streptococcus Bovis Bacteremia Acute Endocarditis S/P polypectomy ESRD Discharge Goals Decrease discomfort,Improve function,Improve disease control Discharge Activity Limitations Resume your previous activity Discharge Data Allergies Allergy/AdvReac Type Severity Reaction Status Date / Time adhesive Allergy Unknown RXN TO Verified 10/30/18 14:04 ADHESIVE ON NITRO PATCH strawberry Allergy Unknown UNKNOWN Verified 10/30/18 14:04 DESIREE Inhibitors AdvReac Mild COUGH Verified 10/30/18 14:04 diphenhydramine AdvReac Mild VERY WEAK, Verified 10/30/18 14:04 CHF lisinopril AdvReac Mild COUGH Verified 10/30/18 14:04 nitroglycerin AdvReac Mild HEADACHE/NA Verified 10/30/18 14:04 USEA Sulfa (Sulfonamide AdvReac Mild "KNOCKS ME Verified 10/30/18 14:04 Antibiotics) OUT" amlodipine AdvReac Unknown RETAIN Verified 10/30/18 14:04 FLUID Consultations 10/30/18 15:40 ED Decision to Admit Stat 10/30/18 18:21 Consult Case Management - Discharge Planning Routine Consult Nephrology Routine 10/31/18 09:20 Consult Infectious Diseases Routine 11/01/18 11:35 Consult Cardiology Routine 11/02/18 09:54 Consult Infectious Diseases Routine 11/02/18 10:39 Consult Cardiac Electrophysiology Routine 11/02/18 17:45 Consult Gastroenterology Routine 11/10/18 14:50 Consult Director Oncology Routine Procedures Performed Operation Date: 11/06/18 08:30 Actual Procedures p EGD Biopsy Dilatation - Ana Lilia Goldstein M.D. s Colonoscopy Polypectomy - Ana Lilia Angelita, M.D. CT ABD: 1. Mild scattered bibasilar atelectatic and/or infiltrative change. 2. Trace pleural fluid right base. 3. Small amount of abdominal and pelvic ascites. 4. Several gallstones. 5. Nonobstructive bowel pattern. CXR: 1. Mild interstitial pulmonary edema and trace bilateral pleural effusions. This has progressed. 2. Cardiomegaly. Liver USD: 1. Contracted gallbladder containing sludge/gravel. Mild wall thickening measuring 4 mm 2. No focal hepatic masses. 3. 7 mm common bile duct 4. Low volume ascites Repeat CT ABD: 1. No evidence of bowel obstruction. No evidence of free air 2. Mild hepatomegaly, low volume ascites, and heterogeneous hepatic enhancement. Clinical correlation in regards to hepatocellular disease is recommended 3. Mild diffuse colonic wall thickening. Likely diagnostic considerations include a diffuse colitis, or bowel wall thickening secondary to hepatocellular disease. 4. Minor bladder wall thickening. Correlation with urinalysis is recommended to exclude a cystitis 5. Small bilateral pleural effusions. Basilar opacities statistically atelectatic Ordered Studies 10/30/18 13:49 CT abd pelvis wo con Stat 10/30/18 18:21 US liver Urgent 10/31/18 10:04 CT abd pelvis IV con only Stat Hospital Course (1) Gram-positive cocci bacteremia: Bacteremia Acute Endocarditis Blood culture: Streptococcus Bovis -Ruled out GI malignancy Repeat Blood cultures: No growth to date Continue Ceftriaxone-- Needs 4 weeks of IV Abx Appreciate ID/Cardiology Input Heavily calcified valvular annulus formation--MANISH will provide limited in formation very complex patient--if device needs removal, it will be a very high risk procedure as per Cardiology AICD device interrogation showed multiple AICD shock per and on admission EGD: Normal Colonoscopy: Multiple polyps removed; Internal hemorrhoids Received Vitamin K, FFP, DDAVP for procedure Pathology:No Malignancy Appreciate GI help INR:1.3 Continue amiodarone, Coreg Monitor electrolytes Monitor H&H No bleeding issues currently Continue ranitidine BID Continue Coumadin Had JACC line placement on 11/10/18 (2) Endocarditis: H/O endocarditis which was treated conservatively with several weeks of antibiotics in 2016. Management as above (3) Sepsis: Due to bacteremia, endocarditis continue Abx as above Multiple AICD Shock AICD interrogation shows frequent ventricular fibrillation with multiple AICD shock prior to patient's admission Patient denies symptoms Appreciate input from EP cardiology Device setting adjusted Continue current meds No recurrence of AICD shock Needs follow up with Cardiology as outpatient (4) Nausea, vomiting and diarrhea: Stool studies negative Resolved (5) Abdominal pain: Resolved (6) Ascites: (7) Elevated LFTs: Possibly secondary to sepsis-Improving Normalized CT ABD/PELVIS: Small amount of abdominal and pelvic ascites U/S liver mild gallbladder wall thickening 4 mm no evidence of acute cholecystitis: Monitor (8) Weakness: Secondary to above PT/OT Not interested in rehab placement (9) Cough: Reported non-productive cough x 1 week Negative influenza PCR CXR: Mild interstitial pulmonary edema and trace bilateral pleural effusions. Cardiomegaly. Resolved (10) Elevated troponin: Mild Troponin elevation Secondary to sepsis, in the setting of end-stage renal disease, poor renal clearance Denies chest pain or shortness of breath Paced rhythm on EKG (11) End-stage renal disease (ESRD): On HD on , , Sat Missed Dialysis 10/29/18 Dialysis as per Nephro Appreciate Nephrology help (12) Idiopathic cardiomyopathy: S/P ICD Echo: 04/2018: EF: 40%, mild concentric LVH, moderate dilated RV, severely dilated R atrium, moderate tricupsid regurgitation (13) Paroxysmal atrial fibrillation: Continue on Coreg, Amiodarone On Coumadin (14) Hx of supraventricular tachycardia: Continue Coreg, amiodarone (15) Diabetes mellitus, type II: Insulin dependent A1c: 8.7 on 03/2018 Continue Lantus, Novolog sliding scale Glycemic pharmacy consult (16) HTN (hypertension): Patient doesn't want amlodipine Increased Hydralazine to 50mg TID BP better Monitor (17) GERD (gastroesophageal reflux disease): Continue Ranitidine DVT Px: Coumadin Code Status Full Code Disposition: Patient refuses Rehab placement Plan to discharge home with Home Health Services Total Time Total Time Spent Total Time Spent (In Minutes): 38 minutes Total Time Includes: Examination of the Patient, Discharge Planning, Medication Reconciliation, Communication With Other Providers and Other Discharge Plan Discharge Items Patient Disposition: Home - Home Health Services Reason For Visit: NAUSEA,VOMITING,DIARRHEA Discharge Diagnosis: Streptococcus Bovis Bacteremia Acute Endocarditis S/P polypectomy ESRD Discharge Goals: Decrease discomfort, Improve disease control and Improve function Activity: Resume your previous activity Exercise/Sports: Gradually increase as tolerated Non-emergency contact: Primary Care Provider, Shopping Inspector and Processing Specialist Call non-emergency contact if: you have any medication questions, your symptoms worsen, your pain is not controlled, your pain is worsening, your pain is unusual for you, your pain is concerning for you, you have a fever, your wound has increased redness, your wound has increased drainage and your wound pain has increased Follow-up/Referrals: Isabel Amezcua DO [Primary Care Provider] - Diet: Carb Consistent or DM2 and Dialysis Renal Addtl Provider Instructions: Follow up with on November 17, 2018 at 9:40Am for Primary Care Follow up with your Shopping Inspector / for Pacemaker check and follow up as advised Follow up with your Processing Specialist for Dialysis and blood pressure management Follow up with Coumadin clinic for management of your Coumadin dosing as instructed Follow up with your Infectious disease in 2-3 weeks Complete the antibiotic course as prescribed Seek immediate medical attention if your symptoms reoccur or worsen Prescriptions: New benzonatate [Tessalon Perles] 100 mg Capsule 100 mg PO TID PRN (Reason: cough) 7 Days Qty: 20 RF: 0 hydralazine 50 mg Tablet 50 mg PO TID 30 Days Qty: 90 RF: 0 ceftriaxone 2 gram recon soln 2 gm IV DAILY Qty: 18 RF: 0 lidocaine-prilocaine 2.5-2.5 % Cream 1 appln EXT PRN PRN (Reason: pain) Qty: 0 RF: 0 Continued atorvastatin 40 mg tablet 40 mg PO HS RF: 0 carvedilol 25 mg tablet 50 mg PO BID RF: 0 torsemide 20 mg tablet 20 mg PO DAILY RF: 0 amiodarone 200 mg tablet 200 mg PO DAILY RF: 0 warfarin 4 mg tablet 4 mg PO PM RF: 0 ranitidine HCl 150 mg tablet 150 mg PO BID RF: 0 Novolog Flexpen U-100 Insulin 100 unit/mL (3 mL) Insulin Pen SUBCUT UD RF: 0 calcium acetate 667 mg capsule 2 cap PO UD RF: 0 Lantus Solostar U-100 Insulin 100 unit/mL (3 mL) insulin pen 20 units subcut PM RF: 0 aspirin 81 mg Tablet,Delayed Release (Dr/Ec) 81 mg PO DAILY RF: 0 Discontinued hydralazine 25 mg tablet 25 mg PO BID RF: 0 Stand-Alone Forms: [facility] Discharge Orders: Discharge Order (Routine); Ordered 11/11/18 Ordered By: Manish Hebert Admission Data Admit Date/Time: 10/30/18 16:45 Attending Provider: Kateryna Dougherty Admit Provider: Kateryna Dougherty Primary Care Provider: Isabel Amezcua Other Providers: Juan Valderrama ; Trish Arellano ; Akiko Liu ; Burak Zaragoza ; Verena Marie I ; Melodie Pacheco ; Gayatri Garcia ; Kasey Anthony ; Donovan Aviles ; Denis Santos ; Aureliano Trujillo ; Jase Campos ; Lionel Silva ; Isaac Mabry ; Starr Hannon ; Dajuan Laguna ; Alicia Hennessy ; Marcie Colón ; Guzman Miranda ; Woody Dolan ; Jeanne Barber ; Samia Novak ; Toro Palmer ; Matthew Luther ; Jadyn Munguia ; Rosana Tapia ; Shanon Ford ; Ana Lilia Goldstein ; Ela Mota ; iLonel Aden ; Manish Hebert Service: Medical Other Pending Studies at Discharge: No
[2018-11-11] MEDS: cefTRIAXone SODIUM 2,000 MG in DEXTROSE 5% 50 ML IV SCH (13:24)
== END 2018-11-11 14:15 | disposition home health service (06) | DRG 871 ==
LOC: ED 12:28 → 2S 16:45 → SUATTDRO 16:45 → 2S 17:38 → 4W 11-10 14:03

== ENCOUNTER 2019-04-27 06:40 | Inpatient (IN) ==
--- NOTE | 2019-04-27 07:17 | XRay Report ---
XR chest 1V portable CLINICAL HISTORY: Dyspnea pneumonia COMPARISON STUDY: 11/10/2018 FINDINGS: Mild stable cardiomegaly. Bipolar cardiac pacemaker. Splenic atelectasis both bases. Lung r egions are otherwise clear. IMPRESSION: Bibasilar platelike atelectasis. Mild stable cardiomegaly. The above report was generated using voice recognition software. It may contain grammatical, syntax or spelling errors. Electronically signed by: Isaac Marr M.D. 04/27/2019 7:16 AM
[2019-04-27 07:58] LABS: INR 3.4 (0.9-1.1); Partial Thromboplastin Ratio 1.3; Partial Thromboplastin Time 34.5 Seconds (21.0-31.0); Prothrombin Time 31.6 Seconds (9.0-12.0)
[2019-04-27 08:14] LABS: Hematocrit (blood only) 30.5 % (37-47); Hemoglobin 10.4 g/dL (12.0-16.0); Mean Corpuscular Hemoglobin 33.9 pg (25-34); Mean Corpuscular Hgb Conc 34.1 g/dL (32-36); Mean Corpuscular Volume 99.3 fL (80-100); Mean Platelet Volume 11.7 fL (7.4-10.4); Platelet Count 50 K/uL (130-400); RDW Standard Deviation 53.6 fL (36.4-46.3); Red Blood Count 3.07 M/uL (4.2-5.4); White Blood Count 3.84 K/uL (4.8-10.8)
[2019-04-27 08:15] LABS: Basophils # (auto) 0.02 K/uL (0-0.2); Basophils % (auto) 0.5 %; Eosinophils # (auto) 0.12 K/uL (0-0.5); Eosinophils % (auto) 3.1 %; Immature Granulocytes # (auto) 0.01 K/uL (0.00-0.02); Immature Granulocytes % (auto) 0.3 %; Lymphocytes % (auto) 18.2 %; Monocytes # (auto) 0.44 K/uL (0.11-0.59); Monocytes % (auto) 11.5 %; Neutrophils # (auto) 2.55 K/uL (1.4-6.5); Neutrophils % (auto) 66.4 %
[2019-04-27 08:29] LABS: Albumin Globulin Ratio 1.3 (0.9-2); Albumin Level 3.6 gm/dl (3.4-5.0); BUN Creatinine Ratio 7.6 (10-20); Bilirubin,Total 0.9 mg/dl (0.2-1); Calcium 8.8 mg/dl (8.5-10.1); Creatinine Clr Calc Pharmacy 9.2 ml/min; Est GFR (Non-African American) 7.8; Globulin 2.7 gm/dl (2.5-4.0); Magnesium 2.2 mg/dl (1.8-2.4); Potassium 4.7 mmol/L (3.5-5.1); Total Protein 6.4 gm/dl (6.4-8.2); Troponin I 0.016 ng/ml (0-0.045)
[2019-04-27 08:35] LABS: Influenza A virus by PCR Neg for Influ A (Neg); Influenza B virus by PCR Neg for Influ B (Neg)
--- NOTE | 2019-04-27 13:34 | Emergency Department Note ---
Entered by Morris Garcia acting as a scribe for Hever Hudson M.D. History of Present Illness General Chief complaint: Respiratory Problems Stated complaint: RESPIRATORY DIFFICULTY Source: patient History of Present Illness Provider complaint: Short of breath Onset (ago): hour(s) (This morning) Location: chest Pain Consistency: + constant Relieved By: + none Exacerbated By: + other (Exertion) Associated symptoms: + cough and + nausea/vomiting; no chest pain The patient is a 73 year old female who presents to the Emergency Room with complaints of constant shortness of breath that started this morning. The patient states she started not feeling well yesterday, but this morning when she woke up her breathing was much worse. The patient reports that her breathing is worse with exertion, even if she is only walking around her house. The patient a dds that she has had a dry cough and mild rhinorrhea that started yesterday. She also mentioned that 3 days ago she had an episode of emesis, but has not had any since. The patient reports that she was supposed to get dialysis today but when she called to cancel her appointment the staff member noticed her respiratory issues and recommended she call EMS. The patient did attend her last scheduled d ialysis appointment which was 3 days ago. The patient denies any increase in lower extremity swelling as well as being around anyone who has been sick. The patient is on Coumadin. Home Medications Home Medications Medication Instructions Recorded Confirmed Type Lantus Solostar U-100 Insulin 18 units SUBCUT PM 10/30/18 04/27/19 History Novolog Flexpen U-100 Insulin 0 unit SUBCUT UD 10/30/18 04/27/19 History amiodarone 200 mg PO QAM 10/30/18 04/27/19 History aspirin 81 mg PO QAM 10/30/18 04/27/19 History atorvastatin 40 mg PO HS 10/30/18 04/27/19 History calcium acetate 1 cap PO TIDM 10/30/18 04/27/19 History carvedilol 50 mg PO BID 10/30/18 04/27/19 History ranitidine HCl 150 mg PO BID 10/30/18 04/27/19 History torsemide 20 mg PO QAM 10/30/18 04/27/19 History warfarin 4 mg PO SUMOTUTHFRSA 10/30/18 04/27/19 History hydralazine 50 mg PO TID 04/27/19 04/27/19 History lorazepam [Ativan] 0.5 mg PO TID PRN 04/27/19 04/27/19 History warfarin 6 mg PO WE 04/27/19 04/27/19 History Allergies Allergy/AdvReac Type Severity Reaction Status Date / Time adhesive Allergy Unknown RXN TO Verified 04/27/19 07:24 ADHESIVE ON NITRO PATCH strawberry Allergy Unknown UNKNOWN Verified 04/27/19 07:24 DESIREE Inhibitors AdvReac Mild COUGH Verified 04/27/19 07:24 diphenhydramine AdvReac Mild VERY WEAK, Verified 04/27/19 07:24 CHF lisinopril AdvReac Mild COUGH Verified 04/27/19 07:24 nitroglycerin AdvReac Mild HEADACHE/NA Verified 04/27/19 07:24 USEA Sulfa (Sulfonamide AdvReac Mild "KNOCKS ME Verified 04/27/19 07:24 Antibiotics) OUT" amlodipine AdvReac Unknown RETAIN Verified 04/27/19 07:24 FLUID Past Med/Surg History Medical History GERD (gastroesophageal reflux disease) (Chronic) Diabetes mellitus, type II (Chronic) Hx of supraventricular tachycardia (Chronic) Paroxysmal atrial fibrillation (Chronic) Idiopathic cardiomyopathy (Chronic) History of hysterectomy (Chronic) 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) Hypothermia (Resolved 07/24/13) Hypertensive urgency (Resolved) Bacteremia (Resolved) CHF NYHA class III (Chronic) Gram-positive bacteremia (Resolved) Depression (Chronic) Anxiety (Chronic) detention (current) use of 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 (Chronic) Degenerative cervical disc (Chronic) Slow transit constipation (Chronic) PVD (peripheral vascular disease) (Chronic) Proteinuria (Chronic) Hyperparathyroidism (Chronic) Biventricular ICD (implantable cardioverter-defibrillator) in place (Chronic) H/O TIA (transient ischemic attack) and stroke (Chronic) ESRD (end stage renal disease) on dialysis (Chronic) Hip fracture, left (Resolved) AV graft malfunction (Resolved) Bleeding from dialysis shunt (Resolved) Cardiomegaly (Chronic 11/07/11) MARGOT (acute kidney injury) (Acute) CKD (chronic kidney disease) (Chronic) HTN (hypertension) (Chronic) Surgical History History of appendectomy (Chronic) S/P pericardial surgery (Chronic) H/O dilation and curettage (Chronic) Family History Other Coronary heart disease Diabetes Social History Preferred Language: Slovak Communication Ability: Effective Party Host Required: No Beliefs That Will Affect Care: None Current Living Situation: Family Current Living Situation Comment: Cousin lives with herApple Other Information That Helps Us Care for You: No Feels Safe at Home: Yes Safety Concerns: Feels Safe At This Time Smoking Status: Never smoker Hx Alcohol Use: No Hx Substance Use: No Review of Systems See HPI for pertinent positives & negatives. and A total of 10 systems reviewed and were otherwise negative Physical Exam Vital Signs Vital Signs - 24 hr 04/27/19 06:49 04/27/19 06:57 04/27/19 07:00 Temperature 36.7 C Temperature Source Oral Sepsis Recent Fever Within 48 Hours No Sepsis Action Taken by Nursing No Action Required Pulse Rate 84 64 Pulse Rate from SpO2 Sensor 64 Respiratory Rate 18 20 Respiratory Depth Normal Blood Pressure 163/77 H 170/76 H Blood Pressure Mean 105 107 Pulse Oximetry 97 97 Oxygen Delivery Method Room Air Room Air 04/27/19 07:31 04/27/19 08:51 04/27/19 09:00 Temperature Temperature Source Sepsis Recent Fever Within 48 Hours Sepsis Action Taken by Nursing Pulse Rate 70 65 Pulse Rate from SpO2 Sensor 70 65 Respiratory Rate 19 33 H Respiratory Depth Blood Pressure 194/84 H 189/82 H Blood Pressure Mean 120 117 Pulse Oximetry 94 96 97 Oxygen Delivery Method Room Air 04/27/19 09:30 04/27/19 10:00 04/27/19 10:30 Temperature Temperature Source Sepsis Recent Fever Within 48 Hours Sepsis Action Taken by Nursing Pulse Rate 61 64 61 Pulse Rate from SpO2 Sensor 61 64 61 Respiratory Rate 13 21 21 Respiratory Depth Blood Pressure 180/74 H 176/74 H 155/90 H Blood Pressure Mean 109 108 111 Pulse Oximetry 98 95 96 Oxygen Delivery Method 04/27/19 11:00 04/27/19 11:30 04/27/19 12:01 Temperature Temperature Source Sepsis Recent Fever Within 48 Hours Sepsis Action Taken by Nursing Pulse Rate 64 64 61 Pulse Rate from SpO2 Sensor 64 64 61 Respiratory Rate 25 H 16 21 Respiratory Depth Blood Pressure 164/104 H 149/85 H 166/68 H Blood Pressure Mean 124 106 100 Pulse Oximetry 95 95 93 Oxygen Delivery Method 04/27/19 12:30 Temperature Temperature Source Sepsis Recent Fever Within 48 Hours Sepsis Action Taken by Nursing Pulse Rate 60 Pulse Rate from SpO2 Sensor 60 Respiratory Rate 22 Respiratory Depth Blood Pressure 157/78 H Blood Pressure Mean 104 Pulse Oximetry 95 Oxygen Delivery Method GENERAL: Awake, alert, on liter HENT: Normocephalic, atraumatic EYES: Normal conjunctiva. Sclera non-icteric. NECK: Supple. No nuchal rigidity. RESPIRATORY: Slightly tachypneic, slight dyspnea with speech, diminished lung bases. No increased WOB. CARDIAC: Normal rate. Normal rhythm. Extremities warm and well perfused. GI: Soft, non-distended. No tenderness to palpation. RECTAL: Deferred. MUSCULOSKELETAL: Atraumatic. Chest examination reveals no tenderness. There is no CVA tenderness to palpation. Left forearm dialysis graft with thrill. LOWER EXTREMITIES: Calves are equal size bilaterally and non-tender. Trace pedal edema NEURO: Normal sensorium. No sensory or motor deficits noted. No facial droop. SKIN: Warm and dry. No rash or jaundice noted. Course 0645: Past medical records reviewed. The patient was evaluated in room B05, and a complete history and physical examination were performed. 0840: I reevaluated the patient and she is resting in bed with stable vitals. 1026: I spoke to Dr. Kat Austin about the patient's case. He is going to accept the patient for further evaluation. Consultations Consultation #1: I spoke to Dr. Kat Austin about the patient's case. He is going to accept the patient for further evaluation. Time: 10:26 Medical Decision Making Differential Diagnosis Differential diagnoses includes but is not limited to pneumonia, bronchitis, COPD/Asthma exacerbation, pneumothorax, pulmonary embolism, congestive heart failure, acute coronary syndrome, amongst others. Medical Records Attestation: I reviewed the patient's medical records. Home Medications Current Medication List: was personally reviewed by me Laboratory Data Attestation: I reviewed the patient's lab results. Result diagrams: 04/27/19 07:35 04/27/19 07:35 Lab Results 10/15/19 10/15/19 10/15/19 Range/Units 07:35 07:35 07:35 WBC 3.84 L (4.8-10.8) K/uL RBC 3.07 L (4.2-5.4) M/uL Hgb 10.4 L (12.0-16.0) g/dL Hct 30.5 L (37-47) % MCV 99.3 (80-100) fL MCH 33.9 (25-34) pg MCHC 34.1 (32-36) g/dL RDW Std Deviation 53.6 H (36.4-46.3) fL RDW Coeff of Jacobo 15.0 H (11.5-14.5) % Plt Count 50 L (130-400) K/uL MPV 11.7 H (7.4-10.4) fL Immature Gran % (Auto) 0.3 % Neut % (Auto) 66.4 % Lymph % (Auto) 18.2 % Hyde % (Auto) 11.5 % Eos % (Auto) 3.1 % Baso % (Auto) 0.5 % Immature Gran # (Auto) 0.01 (0.00-0.02) K/uL Neut # (Auto) 2.55 (1.4-6.5) K/uL Lymph # (Auto) 0.70 L (1.2-3.4) K/uL Hyde # (Auto) 0.44 (0.11-0.59) K/uL Eos # (Auto) 0.12 (0-0.5) K/uL Baso # (Auto) 0.02 (0-0.2) K/uL PT 31.6 H (9.0-12.0) Seconds INR 3.4 H (0.9-1.1) APTT 34.5 H (21.0-31.0) Seconds PTT Ratio 1.3 Sodium 135 L (136-145) mmol/L Potassium 4.7 (3.5-5.1) mmol/L Chloride 99 (98-107) mmol/L Carbon Dioxide 28 (21-32) mmol/L Anion Gap 8.0 (3-11) BUN 38 H (7-18) mg/dl Creatinine 5.11 H* (0.6-1.2) mg/dl Est Cr Clr Drug Dosing 9.2 ml/min Est GFR ( Amer) 9.0 Est GFR (Non-Af Amer) 7.8 BUN/Creatinine Ratio 7.6 L (10-20) Glucose 194 H (70-99) mg/dl Calcium 8.8 (8.5-10.1) mg/dl Magnesium 2.2 (1.8-2.4) mg/dl Total Bilirubin 0.9 (0.2-1) mg/dl AST 14 L (15-37) U/L ALT 15 (12-78) U/L Alkaline Phosphatase 122 H (45-117) U/L Troponin I 0.016 (0-0.045) ng/ml NT-Pro-B Natriuret Pep 33315 H (0-900) pg/ml Total Protein 6.4 (6.4-8.2) gm/dl Albumin 3.6 (3.4-5.0) gm/dl Globulin 2.7 (2.5-4.0) gm/dl Albumin/Globulin Ratio 1.3 (0.9-2) Specimen Hemolysis Influenza Type A (PCR) (Neg) Influenza Type B (PCR) (Neg) 04/27/19 Range/Units 07:50 WBC (4.8-10.8) K/uL RBC (4.2-5.4) M/uL Hgb (12.0-16.0) g/dL Hct (37-47) % MCV (80-100) fL MCH (25-34) pg MCHC (32-36) g/dL RDW Std Deviation (36.4-46.3) fL RDW Coeff of Jacobo (11.5-14.5) % Plt Count (130-400) K/uL MPV (7.4-10.4) fL Immature Gran % (Auto) % Neut % (Auto) % Lymph % (Auto) % Hyde % (Auto) % Eos % (Auto) % Baso % (Auto) % Immature Gran # (Auto) (0.00-0.02) K/uL Neut # (Auto) (1.4-6.5) K/uL Lymph # (Auto) (1.2-3.4) K/uL Hyde # (Auto) (0.11-0.59) K/uL Eos # (Auto) (0-0.5) K/uL Baso # (Auto) (0-0.2) K/uL PT (9.0-12.0) Seconds INR (0.9-1.1) APTT (21.0-31.0) Seconds PTT Ratio Sodium (136-145) mmol/L Potassium (3.5-5.1) mmol/L Chloride (98-107) mmol/L Carbon Dioxide (21-32) mmol/L Anion Gap (3-11) BUN (7-18) mg/dl Creatinine (0.6-1.2) mg/dl Est Cr Clr Drug Dosing ml/min Est GFR ( Amer) Est GFR (Non-Af Amer) BUN/Creatinine Ratio (10-20) Glucose (70-99) mg/dl Calcium (8.5-10.1) mg/dl Magnesium (1.8-2.4) mg/dl Total Bilirubin (0.2-1) mg/dl AST (15-37) U/L ALT (12-78) U/L Alkaline Phosphatase (45-117) U/L Troponin I (0-0.045) ng/ml NT-Pro-B Natriuret Pep (0-900) pg/ml Total Protein (6.4-8.2) gm/dl Albumin (3.4-5.0) gm/dl Globulin (2.5-4.0) gm/dl Albumin/Globulin Ratio (0.9-2) Specimen Hemolysis Influenza Type A (PCR) Neg for Influ A (Neg) Influenza Type B (PCR) Neg for Influ B (Neg) Imaging Data Radiologist's Impression: Radiology results as stated below per my review and the radiologist's interpretation: XR chest 1V portable CLINICAL HISTORY: Dyspnea pneumonia COMPARISON STUDY: 11/10/2018 FINDINGS: Mild stable cardiomegaly. Bipolar cardiac pacemaker. Splenic atelectasis both bases. Lung regions are otherwise clear. IMPRESSION: Bibasilar platelike atelectasis. Mild stable cardiomegaly. The above report was generated using voice recognition software. It may contain grammatical, syntax or spelling errors. Electronically signed by: Isaac Marr M.D. 04/27/2019 7:16 AM ECG Data Attestation: I personally reviewed and interpreted this ECG as follows: Indication: SOB/dyspnea Rate (beats per minute): 62 Rhythm: other (AV-Paced) Findings: no PVC, no ST depression and no ST elevation Comparison ECG Date: from (11/05/18) Change: no significant change Blood Pressure Blood Pressure Findings: Elevated blood pressure Blood Pressure Disposition: further management by hospitalist STACY Narrative Patient is a 73-year-old female presenting via EMS today with reports of difficulty breathing. Patient has a past medical history of idiopathic cardiomyopathy, heart failure with AICD, atrial fibrillation on amiodarone and Coumadin, diabetes, ESRD on hemodialysis, hypertension who reports that since yesterday she started to have some shortness of breath. Particularly this morning had difficulty walking to and wounds due to shortness of breath. Sche duled for dialysis today but was unable to go for this and they called her and referred her to call EMS given that she was somewhat dyspneic on the phone. Patient denies fevers or pain. No trauma. Patient states she is been compliant and last completed dialysis on Friday as scheduled. Denies significant weight gain. No significant evidence of lower extremity edema. Benign abdomen. Some diminished breath sounds but no overt wheeze. EKG and troponin completed to evaluate for possible ACS. No fevers reported lower suspicion for sepsis. Chest x-ray without theodora evidence of pneumonia. No evidence of SIEBEL DEVELOPER or RPA while she does complain of slight sore throat. Patient states compliance with Coumadin and INR is therapeutic. I doubt this is dissection. Labs consistent with needing dialysis today but no emergent electrolyte abnormality. INR 3.4 significant narrowing my suspicion for PE as she is well anticoagulated and slightly over anticoagulated. proBNP is significantly elevated. Wonder if some of her dyspnea could be related to some fluid status. Not entirely convinced however. Her shortness of breath is somewhat improved on reevaluation but still with some slight dyspnea and dyspnea on exertion. Given this I feel that monitoring here obtaining dialysis and fluid reduction and seeing if she has improvement would be warranted. Discussed with the patient and [facility] hospitalist. Impression & Plan Shortness of breath, HARRIS (dyspnea on exertion), ESRD (end stage renal disease) on dialysis Discharge Plan Visit Data Chief Complaint: Respiratory Problems Stated Complaint: RESPIRATORY DIFFICULTY ED Provider: Hever Hudson Discharge Problem: Shortness of breath, HARRIS (dyspnea on exertion), ESRD (end stage renal disease) on dialysis Patient Disposition: Being Evaluated by Hospitalist Forms Stand Alone Forms: My [facility] Prescriptions Prescriptions: No Action atorvastatin 40 mg tablet 40 mg PO HS RF: 0 carvedilol 25 mg tablet 50 mg PO BID RF: 0 torsemide 20 mg tablet 20 mg PO QAM RF: 0 amiodarone 200 mg tablet 200 mg PO QAM RF: 0 warfarin 4 mg tablet 4 mg PO SUMOTUTHFRSA RF: 0 ranitidine HCl 150 mg tablet 150 mg PO BID RF: 0 Novolog Flexpen U-100 Insulin 100 unit/mL (3 mL) Insulin Pen SUBCUT UD RF: 0 calcium acetate 667 mg capsule 1 cap PO TIDM RF: 0 Lantus Solostar U-100 Insulin 100 unit/mL (3 mL) insulin pen 18 units subcut PM RF: 0 aspirin 81 mg Tablet,Delayed Release (Dr/Ec) 81 mg PO QAM RF: 0 warfarin 4 mg tablet 6 mg PO WE RF: 0 hydralazine 50 mg tablet 50 mg PO TID RF: 0 lorazepam [Ativan] 0.5 mg tablet 0.5 mg PO TID PRN (Reason: Anxiety) RF: 0 Referrals Referrals: PCP,NO [Physician] - The scribe's documentation has been prepared under my direction and personally reviewed by me in its entirety. I confirm that the note above accurately reflects all work, treatment, procedures, and medical decision making performed by me.
--- NOTE | 2019-04-27 13:56 | History & Physical Report ---
Date of Service April 27, 2019 Assessment & Plan (1) Dyspnea: -Admit to [facility] with telemetry -Patient presenting from home with reports of worsening shortness of breath since yesterday with associated cold-like symptoms with nasal congestion and hoarseness -Upon arrival to the ED, patient was tachypneic and had difficulty speaking full sentences. Symptoms gradually resolved on their own and breathing is on back to baseline. -CXR negative for acute cardiopulmonary findings; does not appear to be volume overloaded on exam; lung sounds clear to auscultation; PE considered unlikely with therapeutic INR -BP elevated 194/84 - ? If symptoms due to hypertensive urgency in combination with upper respiratory viral illness; influenza testing negative -Troponin negative, EKG without acute ST changes -Treat BP, PRN guaifenesin/dextromethorphan for congestion -Dialysis today per regular schedule (2) Hypertensive urgency: -BP 194/84 -Did not take medications this a.m. -Elevated BP also possibly due to [id number] cold medicine (patient unsure of name) -Resume regular home antihypertensives, monitor BP, make adjustments as needed -Dialysis per regular schedule today (3) ESRD (end stage renal disease) on dialysis: -Dialysis per regular scheduled today -Nephrology notified -Continue routine renal medications (4) Paroxysmal atrial fibrillation: -Currently paced rhythm -Rhythm controlled on amiodarone and rate controlled on beta-martine -Anticoagulated on Coumadin, INR 3.4 (5) Idiopathic cardiomyopathy: -EF 45 to 50% -Appears to be euvolemic on exam -Fluid managed with dialysis and torsemide (6) Diabetes mellitus, type II: -Hgb A1c 7.7 12/2018 -Hold home regimen and utilize Lantus and NovoLog per protocol hospitalized (7) H/O TIA (transient ischemic attack) and stroke: -Continue aspirin and statin (8) DVT prophylaxis: -On Coumadin with therapeutic INR History of Present Illness Chief Complaint: Shortness of breath Primary Care Provider: Zeynep Loaiza MD 73-year-old male who presents to the ED with shortness of breath. Recently, she has had some cold-like symptoms with nasal congestion and hoarseness. Yesterday, she noticed some increased shortness of breath. Shortness of breath was much worse this morning and patient had difficulty speaking in full sentences. She then presented to the ED for further evaluation. Patient denies cough or sputum production. No chest pain or palpitations. She reports taking some [id number] cough and cold medicine however is unsure of the name. She denies lightheadedness, dizziness, diaphoresis, syncopal events. Patient goes to dialysis on Friday, , Friday. She had regular dialysis this previous Friday. She was due to go today however came to the ED instead. She is unsure of her dry weight. She is unaware of any changes in dialysis settings. Denies any worsening lower extremity edema orthopnea. Reports she felt cold yesterday however attributes this to dialysis. No fevers. Denies abdominal pain, nausea, vomiting, diarrhea. Patient makes very little urine at baseline however denies any dysuria or hematuria. Upon arrival to the ED, patient was tachypneic and having difficulty speaking in full sentences. Sym ptoms gradually resolved on their own. At the time my exam, patient is resting in bed no acute distress. Reports her breathing has returned to baseline. BP is elevated 194/84. Labs are unremarkable. Allergies Allergy/AdvReac Type Severity Reaction Status Date / Time adhesive Allergy Unknown RXN TO Verified 04/27/19 07:24 ADHESIVE ON NITRO PATCH strawberry Allergy Unknown UNKNOWN Verified 04/27/19 07:24 DESIREE Inhibitors AdvReac Mild COUGH Verified 04/27/19 07:24 diphenhydramine AdvReac Mild VERY WEAK, Verified 04/27/19 07:24 CHF lisinopril AdvReac Mild COUGH Verified 04/27/19 07:24 nitroglycerin AdvReac Mild HEADACHE/NA Verified 04/27/19 07:24 USEA Sulfa (Sulfonamide AdvReac Mild "KNOCKS ME Verified 04/27/19 07:24 Antibiotics) OUT" amlodipine AdvReac Unknown RETAIN Verified 04/27/19 07:24 FLUID Home Medications Home Medications Medication Instructions Recorded Confirmed Type Lantus Solostar U-100 Insulin 18 units SUBCUT PM 10/30/18 04/27/19 History Novolog Flexpen U-100 Insulin 0 unit SUBCUT UD 10/30/18 04/27/19 History amiodarone 200 mg PO QAM 10/30/18 04/27/19 History aspirin 81 mg PO QAM 10/30/18 04/27/19 History atorvastatin 40 mg PO HS 10/30/18 04/27/19 History calcium acetate 1 cap PO TIDM 10/30/18 04/27/19 History carvedilol 50 mg PO BID 10/30/18 04/27/19 History ranitidine HCl 150 mg PO BID 10/30/18 04/27/19 History torsemide 20 mg PO QAM 10/30/18 04/27/19 History warfarin 4 mg PO SUMOTUTHFRSA 10/30/18 04/27/19 History hydralazine 50 mg PO TID 04/27/19 04/27/19 History lorazepam [Ativan] 0.5 mg PO TID PRN 04/27/19 04/27/19 History warfarin 6 mg PO WE 04/27/19 04/27/19 History Past Med/Surg History Medical History Secondary hyperparathyroidism (Chronic) Streptococcus bovis infection (Resolved) Bacteremia with pacemaker lead vegetation ESRD (end stage renal disease) on dialysis (Chronic) Endocarditis (Resolved) Pacemaker wire vegetation Anemia of renal disease (Chronic) HTN (hypertension) (Chronic) GERD (gastroesophageal reflux disease) (Chronic) Diabetes mellitus, type II (Chronic) Hx of supraventricular tachycardia (Chronic) Paroxysmal atrial fibrillation (Chronic) Idiopathic cardiomyopathy (Chronic) History of hysterectomy (Chronic) Depression (Chronic) Anxiety (Chronic) alf (current) use of 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 (Chronic) Degenerative cervical disc (Chronic) Slow transit constipation (Chronic) PVD (peripheral vascular disease) (Chronic) Proteinuria (Chronic) Biventricular ICD (implantable cardioverter-defibrillator) in place (Chronic) Pericardial effusion (Resolved) H/O TIA (transient ischemic attack) and stroke (Chronic) Hip fracture, left (Resolved) Left bundle branch block (Chronic 11/07/11) Surgical History History of left hip hemiarthroplasty (Chronic) History of cataract surgery (Chronic) History of appendectomy (Chronic) S/P pericardial surgery (Chronic) Pericardial window for pericardial effusion H/O dilation and curettage (Chronic) Family History Brother Diabetes Mother Diabetes Coronary heart disease Sister Diabetes Social History Preferred Language: Mongolian Communication Ability: Effective Fitness Specialist Required: No Beliefs That Will Affect Care: None Current Living Situation: Family Current Living Situation Comment: Cousin lives with her-Guillaume Other Information That Helps Us Care for You: No Feels Safe at Home: Yes Safety Concerns: Feels Safe At This Time Smoking Status: Never smoker Hx Alcohol Use: No Hx Substance Use: No Review of Systems Review of Systems: ROS per HPI, all other systems reviewed and negative Physical Exam Constitutional: WD/WN, vitals as above Eyes: PERRL, conjunctivae normal, anicteric sclerae ENMT: external ear and nose normal, oropharynx normal Respiratory: normal respiratory effort; no respiratory distress Auscultation: + diminished lung sounds (Bilateral bases) Cardiovascular: Rate/Rhythm: regular rate and regular rhythm Vessels: normal peripheral pulses Extremities: no edema Gastrointestinal (Abdomen): normal bowel sounds, soft, nontender, no hepatosplenomegaly Musculoskeletal: no cyanosis or clubbing, extremities motor strength 5/5 Dialysis graft left forearm, positive thrill Skin: no rashes, warm and dry Neurologic: PERRL, EOMI, accommodation nl, no face palsy, no dysarthria Psychiatric: A+Ox3, euthymic affect Results & Data Vital Signs (Past 12 Hours) Vital Signs Temp Pulse Resp BP Pulse Ox 04/27/19 12:30 60 22 157/78 H 95 04/27/19 12:01 61 21 166/68 H 93 04/27/19 11:30 64 16 149/85 H 95 04/27/19 11:00 64 25 H 164/104 H 95 04/27/19 10:30 61 21 155/90 H 96 04/27/19 10:00 64 21 176/74 H 95 04/27/19 09:30 61 13 180/74 H 98 04/27/19 09:00 65 33 H 189/82 H 97 04/27/19 08:51 70 19 194/84 H 96 04/27/19 07:31 94 04/27/19 07:00 64 20 170/76 H 97 04/27/19 06:49 36.7 C 84 18 163/77 H 97 Laboratory Results Short CBC 04/27/19 Range/Units 07:35 WBC 3.84 L (4.8-10.8) K/uL Hgb 10.4 L (12.0-16.0) g/dL Hct 30.5 L (37-47) % Plt Count 50 L (130-400) K/uL BMP 04/27/19 07:35 Sodium 135 L Potassium 4.7 Chloride 99 Carbon Dioxide 28 BUN 38 H Creatinine 5.11 H* Glucose 194 H Calcium 8.8 Cardiac Enzymes 04/27/19 Range/Units 07:35 Troponin I 0.016 (0-0.045) ng/ml Liver Function 04/27/19 Range/Units 07:35 Total Bilirubin 0.9 (0.2-1) mg/dl AST 14 L (15-37) U/L ALT 15 (12-78) U/L Alkaline Phosphatase 122 H (45-117) U/L Albumin 3.6 (3.4-5.0) gm/dl Diagnostic Findings CXR IMPRESSION: Bibasilar platelike atelectasis. Mild stable cardiomegaly. Code Status & VTE Plan Code Status Patient is a full code as per my discussion with her. VTE Prophylaxis Plan VTE Prophylaxis will be ordered: Yes Supervising Physician Co-Signing Physician Notes HISTORY: Record reviewed. Patient interviewed and examined. Care coordinated with BLAISE Gomez. Please refer to her documentation for patient's history. Briefly, 73-year-old female with history of paroxysmal atrial fibrillation, cardiomyopathy, hypertension, CKD 5 on hemodialysis, and other problems. Presented to ED with increasing dyspnea over past 24 hours. No fever. Occasional cough. No chest pain. On warfarin for history of paroxysmal atrial fibrillation. EXAM: General- no distress Lungs- few rales right base, otherwise clear to auscultation; no respiratory distress Cardiovascular- RRR; III/ systolic murmur LSB (vs transmitted thrill from AV fistula); no gallop; + JVD; trace pretibial edema Abdomen- + bowel sounds, soft, nontender Extremities- no cyanosis; no calf tenderness Neuro- alert, oriented Skin- warm & dry DATA: Hemoglobin 10.4, white count 3840, platelet count 50,000. INR 3.4. Potassium 4.7, BUN 38, creatinine 5.1, random glucose 194. Nasopharyngeal swab for influenza A/B per PCR negative. Other lab studies as noted. Chest x-ray reviewed by the undersigned and formally interpreted by Radiology. Mild cardiomegaly. Bibasilar atelectasis. No infiltrates, effusions, CHF. EKG performed at 0700 reviewed and demonstrated dual-chamber AV pacing at 60 / minute. ASSESSMENT AND PLAN: 33-year-old female with history of paroxysmal atrial fibrillation, CHF, PAF, end-stage renal disease on hemodialysis, and other problems. Dyspnea over past 24 hours with occasional cough. Chest x-ray shows some bibasilar atelectasis, but no evidence of CHF pneumonia, pleural effusion. Does not appear to be fluid overloaded. May have viral respiratory tract infection. Monitor pulmonary status. Incentive spirometry for pulmonary atelectasis. Consult Nephrology to manage hemodialysis. Patient was due for treatment today, was but was too ill to go to outpatient dialysis clinic. Thrombocytopenia appears to be chronic with fluctuating platelet counts under 100,000 for at least the last 6 months. Consider outpatient consultation with Hematology if etiology of thrombocytopenia is not determined. Continue anticoagulation with warfarin with caution for paroxysmal atrial fibrillation and VTE prophylaxis. Please refer to DANNI Grayson's documentation for discussion of other issues. 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
[2019-04-27] MEDS ORDERED: LORazepam 0.5 MG TAB PO PRN (14:50)
[2019-04-27] MEDS ORDERED: DEXTROSE 50% 50 ML SYRINGE IV PRN (14:50)
[2019-04-27] MEDS ORDERED: GLUCAGON FOR INJ 1 MG VIAL SQ PRN (14:50)
[2019-04-27] MEDS ORDERED: GLUCOSE 40% GEL 15 GM TUBE PO PRN (14:50)
[2019-04-27] MEDS ORDERED: GLUCOSE 10 TABS/TUBE PO PRN (14:50)
[2019-04-27] MEDS ORDERED: GUAIFENESIN/DEXTROM SYRUP 100MG/10MG 5ML UDC PO PRN (14:50)
[2019-04-27] MEDS ORDERED: ACETAMINOPHEN 325 MG TAB PO PRN (14:50)
[2019-04-27] MEDS ORDERED: CARBOHYDRATES FOR HYPOGLYCEMIA PO PRN (14:50)
[2019-04-27] MEDS: AMIODARONE 200 MG TAB PO SCH (18:00)
[2019-04-27] MEDS: carvediloL 25 MG TAB PO SCH ×2 (18:00→21:13)
[2019-04-27] MEDS: ASPIRIN 81 MG ECTAB PO SCH (18:01)
[2019-04-27] MEDS: HydrALAZINE TAB 50 MG TAB PO SCH ×2 (18:02→21:12)
[2019-04-27] MEDS: TORSEMIDE 10 MG TAB PO SCH (18:02)
[2019-04-27] MEDS: CALCIUM ACETATE 667 MG CAP PO SCH (19:35)
[2019-04-27] MEDS: INSULIN GLARGINE SOLOSTAR 100 UNITS/ML 3 ML PEN SC SCH ×2 (19:43→21:23)
--- NOTE | 2019-04-27 19:58 | Nephrology Consultation ---
Date of Consultation April 27, 2019 Assessment & Plan (1) ESRD (end stage renal disease) on dialysis: Patient is on HD TTS. Last HD was Friday. She is being dialysed for 3.5 hrs, on a 2k bath QB 350, QD 600 and UF of 2.5litres. She tolerated HD well. Next HD (2) Hypertensive urgency: BP is improving with coreg and hydralazine. If BP remains high tomorrow, we can add losartan (3) Secondary hyperparathyroidism: Patient should take Phoslo tid with meals. Check phos once weekly (4) Dyspnea: Likely due to multifactorial etiology including respiratory infection and possibly mild fluid overload. Breathing has improved with supportive measures. We took 2.5 litres with HD. Will monitor respiratory status and escalate UF as needed if evidence of volume overload History of Present Illness Reason for Consultation: ESRD on HD with SOB Requesting Physician: Phil Stephens MD Attending Physician: Phil Stephens MD History of Present Illness This is 73yoF with PMH of HTN, type 2 DM, CHF, depression, A.fib in coumadin and ESRD on HD TTS who was admitted on 04/27 with cough and SOB. Her last HD was friday. Since then She has been unwell with cough and worsening SOB. She was not eating well. Vomited a couple of times. She missed her HD out pt today. SHe has a left UA AVF. In the ED she was hypertensive with SBP in the 190's. her hypoxia slowly improved in ED. CXR was negative for acute processes. I initially saw the patient in consult. I later returined to see the patient while on HD. She was again seen and examined while on dialysis around 5pm. Allergies Allergy/AdvReac Type Severity Reaction Status Date / Time adhesive Allergy Unknown RXN TO Verified 04/27/19 07:24 ADHESIVE ON NITRO PATCH strawberry Allergy Unknown UNKNOWN Verified 04/27/19 07:24 DESIREE Inhibitors AdvReac Mild COUGH Verified 04/27/19 07:24 diphenhydramine AdvReac Mild VERY WEAK, Verified 04/27/19 07:24 CHF lisinopril AdvReac Mild COUGH Verified 04/27/19 07:24 nitroglycerin AdvReac Mild HEADACHE/NA Verified 04/27/19 07:24 USEA Sulfa (Sulfonamide AdvReac Mild "KNOCKS ME Verified 04/27/19 07:24 Antibiotics) OUT" amlodipine AdvReac Unknown RETAIN Verified 04/27/19 07:24 FLUID Home Medications Home Medications Medication Instructions Recorded Confirmed Type Lantus Solostar U-100 Insulin 18 units SUBCUT PM 10/30/18 04/27/19 History Novolog Flexpen U-100 Insulin 0 unit SUBCUT UD 10/30/18 04/27/19 History amiodarone 200 mg PO QAM 10/30/18 04/27/19 History aspirin 81 mg PO QAM 10/30/18 04/27/19 History atorvastatin 40 mg PO HS 10/30/18 04/27/19 History calcium acetate 1 cap PO TIDM 10/30/18 04/27/19 History carvedilol 50 mg PO BID 10/30/18 04/27/19 History ranitidine HCl 150 mg PO BID 10/30/18 04/27/19 History torsemide 20 mg PO QAM 10/30/18 04/27/19 History warfarin 4 mg PO SUMOTUTHFRSA 10/30/18 04/27/19 History hydralazine 50 mg PO TID 04/27/19 04/27/19 History lorazepam [Ativan] 0.5 mg PO TID PRN 04/27/19 04/27/19 History warfarin 6 mg PO WE 04/27/19 04/27/19 History Patient History Medical History Secondary hyperparathyroidism (Chronic) Streptococcus bovis infection (Resolved) Bacteremia with pacemaker lead vegetation ESRD (end stage renal disease) on dialysis (Chronic) Endocarditis (Resolved) Pacemaker wire vegetation Anemia of renal disease (Chronic) HTN (hypertension) (Chronic) GERD (gastroesophageal reflux disease) (Chronic) Diabetes mellitus, type II (Chronic) Hx of supraventricular tachycardia (Chronic) Paroxysmal atrial fibrillation (Chronic) Idiopathic cardiomyopathy (Chronic) History of hysterectomy (Chronic) Depression (Chronic) Anxiety (Chronic) 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) Degenerative cervical disc (Chronic) Slow transit constipation (Chronic) PVD (peripheral vascular disease) (Chronic) Proteinuria (Chronic) Biventricular ICD (implantable cardioverter-defibrillator) in place (Chronic) Pericardial effusion (Resolved) H/O TIA (transient ischemic attack) and stroke (Chronic) Hip fracture, left (Resolved) Left bundle branch block (Chronic 11/07/11) Surgical History History of left hip hemiarthroplasty (Chronic) History of cataract surgery (Chronic) History of appendectomy (Chronic) S/P pericardial surgery (Chronic) Pericardial window for pericardial effusion H/O dilation and curettage (Chronic) Family History Brother Diabetes Mother Diabetes Coronary heart disease Sister Diabetes Social History Preferred Language: Maldivian Communication Ability: Effective Developmental Specialist Required: No Beliefs That Will Affect Care: None Current Living Situation: Family Current Living Situation Comment: Cousin lives with her-Guillaume Other Information That Helps Us Care for You: No Feels Safe at Home: Yes Safety Concerns: Feels Safe At This Time Smoking Status: Never smoker Hx Alcohol Use: No Hx Substance Use: No Review of Systems Review of Systems: All systems reviewed & are unremarkable except as noted in HPI & below Physical Exam Physical Exam: General exam: Appears comfortable, no acute distress HEENT: Pupils are equal and reactive to light Neck: No JVD, neck is supple trachea is midline Respiratory system: Clear breath sounds bilaterally. Gastrointestinal: Abdomen is soft, non distended, non tender, bowel sounds are present CVS: Regular rate and rhythm. No murmurs, rubs or gallops Musculoskeletal: No joint or muscle tenderness Extremities: Non tender, no edema, peripheral pulses are present Neuro: Oriented, no tremors, no focal neurological deficits Skin: No rashes Access : AVF with good bruit Results & Data Vital Signs (Past 12 Hours) Vital Signs Temp Pulse Pulse Pulse Resp BP BP 04/27/19 19:21 36.5 C 61 18 173/73 H 04/27/19 19:00 36.6 C 59 L 196/66 H 04/27/19 18:40 61 192/75 H 04/27/19 18:20 61 194/86 H 04/27/19 18:00 60 192/88 H 04/27/19 17:40 58 L 189/94 H 04/27/19 17:20 60 193/86 H 04/27/19 17:00 60 189/95 H 04/27/19 16:40 63 185/86 H 04/27/19 16:20 60 189/85 H 04/27/19 16:00 62 178/80 H 04/27/19 15:40 60 170/71 H 04/27/19 15:14 36.6 C 64 04/27/19 14:51 36.8 C 70 18 168/79 H 04/27/19 14:30 61 23 181/83 H 04/27/19 14:01 60 26 H 159/72 H 04/27/19 13:30 62 23 156/90 H 04/27/19 13:00 64 17 174/67 H 04/27/19 12:30 60 22 157/78 H 04/27/19 12:01 61 21 166/68 H 04/27/19 11:30 64 16 149/85 H 04/27/19 11:00 64 25 H 164/104 H 04/27/19 10:30 61 21 155/90 H 04/27/19 10:00 64 21 176/74 H 04/27/19 09:30 61 13 180/74 H 04/27/19 09:00 65 33 H 189/82 H 04/27/19 08:51 70 19 194/84 H Pulse Ox 04/27/19 19:21 98 04/27/19 19:00 04/27/19 18:40 04/27/19 18:20 04/27/19 18:00 04/27/19 17:40 04/27/19 17:20 04/27/19 17:00 04/27/19 16:40 04/27/19 16:20 04/27/19 16:00 04/27/19 15:40 04/27/19 15:14 04/27/19 14:51 96 04/27/19 14:30 94 04/27/19 14:01 96 04/27/19 13:30 96 04/27/19 13:00 94 04/27/19 12:30 95 04/27/19 12:01 93 04/27/19 11:30 95 04/27/19 11:00 95 04/27/19 10:30 96 04/27/19 10:00 95 04/27/19 09:30 98 04/27/19 09:00 97 04/27/19 08:51 96 Laboratory Results Laboratory Results - last 24 hr 04/27/19 04/27/19 04/27/19 07:35 07:35 07:35 WBC 3.84 L RBC 3.07 L Hgb 10.4 L Hct 30.5 L MCV 99.3 MCH 33.9 MCHC 34.1 RDW Std Deviation 53.6 H RDW Coeff of Jacobo 15.0 H Plt Count 50 L MPV 11.7 H Immature Gran % (Auto) 0.3 Neut % (Auto) 66.4 Lymph % (Auto) 18.2 [place] % (Auto) 11.5 Eos % (Auto) 3.1 Baso % (Auto) 0.5 Immature Gran # (Auto) 0.01 Neut # (Auto) 2.55 Lymph # (Auto) 0.70 L [place] # (Auto) 0.44 Eos # (Auto) 0.12 Baso # (Auto) 0.02 PT 31.6 H INR 3.4 H APTT 34.5 H PTT Ratio 1.3 Sodium 135 L Potassium 4.7 Chloride 99 Carbon Dioxide 28 Anion Gap 8.0 BUN 38 H Creatinine 5.11 H* Est Cr Clr Drug Dosing 9.2 Est GFR ( Amer) 9.0 Est GFR (Non-Af Amer) 7.8 BUN/Creatinine Ratio 7.6 L Glucose 194 H POC Glucose Calcium 8.8 Magnesium 2.2 Total Bilirubin 0.9 AST 14 L ALT 15 Alkaline Phosphatase 122 H Troponin I 0.016 NT-Pro-B Natriuret Pep 51078 H Total Protein 6.4 Albumin 3.6 Globulin 2.7 Albumin/Globulin Ratio 1.3 Specimen Hemolysis Influenza Type A (PCR) Influenza Type B (PCR) 04/27/19 04/27/19 07:50 19:29 WBC RBC Hgb Hct MCV MCH MCHC RDW Std Deviation RDW Coeff of Jacobo Plt Count MPV Immature Gran % (Auto) Neut % (Auto) Lymph % (Auto) [place] % (Auto) Eos % (Auto) Baso % (Auto) Immature Gran # (Auto) Neut # (Auto) Lymph # (Auto) [place] # (Auto) Eos # (Auto) Baso # (Auto) PT INR APTT PTT Ratio Sodium Potassium Chloride Carbon Dioxide Anion Gap BUN Creatinine Est Cr Clr Drug Dosing Est GFR ( Amer) Est GFR (Non-Af Amer) BUN/Creatinine Ratio Glucose POC Glucose 87 Calcium Magnesium Total Bilirubin AST ALT Alkaline Phosphatase Troponin I NT-Pro-B Natriuret Pep Total Protein Albumin Globulin Albumin/Globulin Ratio Specimen Hemolysis Influenza Type A (PCR) Neg for Influ A Influenza Type B (PCR) Neg for Influ B
[2019-04-27] MEDS: INSULIN ASPART 100 UNITS/ML 3 ML PEN SC SCH ×2 (20:15→21:23)
[2019-04-27] MEDS ORDERED: ATORVASTATIN 40 MG TAB PO SCH (21:00)
[2019-04-28 05:10] LABS: Hematocrit (blood only) 31.1 % (37-47); Hemoglobin 10.2 g/dL (12.0-16.0); Mean Corpuscular Hemoglobin 32.8 pg (25-34); Mean Corpuscular Hgb Conc 32.8 g/dL (32-36); RDW Standard Deviation 54.7 fL (36.4-46.3); Red Blood Count 3.11 M/uL (4.2-5.4); White Blood Count 3.31 K/uL (4.8-10.8)
[2019-04-28 05:11] LABS: Mean Platelet Volume 11.7 fL (7.4-10.4); Platelet Count 41 K/uL (130-400)
[2019-04-28 05:18] LABS: INR 2.7 (0.9-1.1); Prothrombin Time 26.1 Seconds (9.0-12.0)
[2019-04-28 05:44] LABS: BUN Creatinine Ratio 4.1 (10-20); Calcium 8.5 mg/dl (8.5-10.1); Creatinine Clr Calc Pharmacy 11.1 ml/min; Est GFR (African American) 11.5; Potassium 3.9 mmol/L (3.5-5.1)
[2019-04-28] MEDS ORDERED: ACETAMINOPHEN 325 MG TAB PO PRN ×2 (07:39)
[2019-04-28] MEDS: CALCIUM ACETATE 667 MG CAP PO SCH ×2 (08:32→11:42)
[2019-04-28] MEDS: TORSEMIDE 10 MG TAB PO SCH (08:32)
[2019-04-28] MEDS: AMIODARONE 200 MG TAB PO SCH (08:32)
[2019-04-28] MEDS: ASPIRIN 81 MG ECTAB PO SCH (08:32)
[2019-04-28] MEDS: HydrALAZINE TAB 50 MG TAB PO SCH ×2 (08:33→12:53)
[2019-04-28] MEDS: carvediloL 25 MG TAB PO SCH (08:33)
[2019-04-28] MEDS: INSULIN GLARGINE SOLOSTAR 100 UNITS/ML 3 ML PEN SC SCH (08:35)
[2019-04-28] MEDS: INSULIN ASPART 100 UNITS/ML 3 ML PEN SC SCH ×2 (08:36→12:53)
--- NOTE | 2019-04-28 12:16 | Hospitalist Progress Note ---
Date of Service April 28, 2019 Assessment & Plan (1) Dyspnea: Dyspnea (possible viral respiratory infection) -33-year-old female with history of paroxysmal atrial fibrillation, CHF, PAF, end-stage renal disease on hemodialysis, and other problems. -main symptoms of Dyspnea over past 24 hours with occasional cough and also found to be very hypertensive. -Chest x-ray shows some bibasilar atelectasis, but no evidence of CHF pneumonia, pleural effusion. -Does not appear to be fluid overloaded. received dialysis on 04/27/19 as inpatient -May have viral respiratory tract infection -antibiotics does not appear to be needed at this time -primary care doctor follow up 05/03/2019 11:00 AM Provider Zeynep Loaiza MD Department Internal Medicine [facility] (2) Hypertensive urgency: -admission blood pressure 194/84 -Hypertensive urgency resolved with taking home blood pressure medications and dialysis on 04/27/19Friday (3) ESRD (end stage renal disease) on dialysis: -Patient is on dialysis schedule every Friday, , and Friday -patient received dialysis on 04/27/19Friday, Patient may resume dialysis as outpatient on 04/29/19 (4) Paroxysmal atrial fibrillation: -Currently paced rhythm -Rhythm controlled on amiodarone and rate controlled on beta-martine -On Coumadin; INR is 2.7 Thrombocytopenia -appears to be chronic with fluctuating platelet counts under 100,000 for at least the last 6 months -Patient should follow up with primary care doctor who can offer hematology outpatient referral if needed (5) Idiopathic cardiomyopathy: -EF 45 to 50% -patients is on dialysis and may continue home dose torsemide (6) Diabetes mellitus, type II: -Hgb A1c 7.7 12/2018 -patient may resume home dose insulin on discharge (7) H/O TIA (transient ischemic attack) and stroke: -history of stroke in the past -No acute stroke on this admission -no acute neurological symptoms on this admission -Continue aspirin and statin (8) DVT prophylaxis: -On Coumadin -INR is 2.7 Discharge Diagnosis: Dyspnea (possible viral respiratory infection), Hypertensive Urgency, End Stage Renal Disease and reliance on Hemodialysis, Thrombocytopenia Subjective Patient seen and examined at bedside. She is ambulatory. She feels shortness of breath is improved. She does not feel that muscle cramps of chest and back are completely gone. She reports some sinus symptoms in recent past. She denies headache. She denies dizziness. She feels comfortable to be discharged and follow up with family medical doctor Physical Exam Constitutional: WD/WN, vitals as above Eyes: PERRL, conjunctivae normal, anicteric sclerae EOM intact bilaterally ENMT: external ear and nose normal, oropharynx normal Neck: normal visual inspection Respiratory: normal respiratory effort, lungs clear to auscultation Cardiovascular: Rate/Rhythm: regular rhythm and + bradycardic Gastrointestinal (Abdomen): normal bowel sounds, soft, nontender, no hepatosplenomegaly Musculoskeletal: Head/Neck/Chest: normocephalic and head atraumatic Neurologic: PERRL, EOMI, accommodation nl, no face palsy, no dysarthria CN's II-XI intact bilaterally Psychiatric: A+Ox3, euthymic affect Results & Data Vital Signs (Past 12 Hours) Vital Signs Temp Pulse Resp BP Pulse Ox 04/28/19 07:01 37.0 C 66 18 139/68 99 (1) Diabetes mellitus, type II Chronic kidney disease stage: on chronic dialysis Diabetes mellitus complication detail: with chronic kidney disease Diabetes mellitus complication status: with kidney complications 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
--- NOTE | 2019-04-28 12:35 | Discharge Summary ---
Date of Service April 28, 2019 Admission HPI Per Admitting Provider 73-year-old male who presents to the ED with shortness of breath. Recently, she has had some cold-like symptoms with nasal congestion and hoarseness. Yesterday, she noticed some increased shortness of breath. Shortness of breath was much worse this morning and patient had difficulty speaking in full sentences. She then presented to the ED for further evaluation. Patient denies cough or sputum production. No chest pain or palpitations. She reports taking some [id number] cough and cold medicine however is unsure of the name. She denies lightheadedness, dizziness, diaphoresis, syncopal events. Patient goes to dialysis on Friday, , Friday. She had regular dialysis this previous Friday. She was due to go today however came to the ED instead. She is unsure of her dry weight. She is unaware of any changes in dialysis settings. Denies any worsening lower extremity edema orthopnea. Reports she felt cold yesterday however attributes this to dialysis. No fevers. Denies abdominal pain, nausea, vomiting, diarrhea. Patient makes very little urine at baseline however denies any dysuria or hematuria. Upon arrival to the ED, patient was tachypneic and having difficulty speaking in full sentences. Symptoms gradually resolved on their own. At the time my exam, patient is resting in bed no acute distress. Reports her breathing has returned to baseline. BP is elevated 194/84. Labs are unremarkable. Admission Exam Per Admitting Provider Physical Exam Constitutional: WD/WN, vitals as above Eyes: PERRL, conjunctivae normal, anicteric sclerae ENMT: external ear and nose normal, oropharynx normal Respiratory: normal respiratory effort; no respiratory distress Auscultation: + diminished lung sounds (Bilateral bases) Cardiovascular: Rate/Rhythm: regular rate and regular rhythm Vessels: normal peripheral pulses Extremities: no edema Gastrointestinal (Abdomen): normal bowel sounds, soft, nontender, no hepatosplenomegaly Musculoskeletal: no cyanosis or clubbing, extremities motor strength 5/5 Dialysis graft left forearm, positive thrill Skin: no rashes, warm and dry Neurologic: PERRL, EOMI, accommodation nl, no face palsy, no dysarthria Psychiatric: A+Ox3, euthymic affect Principal Diagnosis Dyspnea (possible viral respiratory infection), Hypertensive Urgency, End Stage Renal Disease and reliance on Hemodialysis, Thrombocytopenia Discharge Exam Constitutional WD/WN, vitals as above Eyes PERRL, conjunctivae normal, anicteric sclerae EOM intact bilaterally ENMT external ear and nose normal, oropharynx normal Neck normal visual inspection Respiratory normal respiratory effort, lungs clear to auscultation Cardiovascular Rate/Rhythm: regular rhythm and + bradycardic Gastrointestinal (Abdomen) normal bowel sounds, soft, nontender, no hepatosplenomegaly Musculoskeletal Head/Neck/Chest: normocephalic and head atraumatic Neurologic PERRL, EOMI, accommodation nl, no face palsy, no dysarthria CN's II-XI intact bilaterally Psychiatric A+Ox3, euthymic affect Discharge Data Allergies Allergy/AdvReac Type Severity Reaction Status Date / Time adhesive Allergy Unknown RXN TO Verified 04/27/19 07:24 ADHESIVE ON NITRO PATCH strawberry Allergy Unknown UNKNOWN Verified 04/27/19 07:24 DESIREE Inhibitors AdvReac Mild COUGH Verified 04/27/19 07:24 diphenhydramine AdvReac Mild VERY WEAK, Verified 04/27/19 07:24 CHF lisinopril AdvReac Mild COUGH Verified 04/27/19 07:24 nitroglycerin AdvReac Mild HEADACHE/NA Verified 04/27/19 07:24 USEA Sulfa (Sulfonamide AdvReac Mild "KNOCKS ME Verified 04/27/19 07:24 Antibiotics) OUT" amlodipine AdvReac Unknown RETAIN Verified 04/27/19 07:24 FLUID Consultations 04/27/19 10:28 ED Decision to Admit Stat 04/27/19 14:50 Consult Case Management - Discharge Planning Routine Consult Nephrology Routine Hospital Course (1) Dyspnea: Dyspnea (possible viral respiratory infection) -33-year-old female with history of paroxysmal atrial fibrillation, CHF, PAF, end-stage renal disease on hemodialysis, and other problems. -main symptoms of Dyspnea over past 24 hours with occasional cough and also found to be very hypertensive. -Chest x-ray shows some bibasilar atelectasis, but no evidence of CHF pneumonia, pleural effusion. -Does not appear to be fluid overloaded. received dialysis on 04/27/19 as inpatient -May have viral respiratory tract infection -antibiotics does not appear to be needed at this time -primary care doctor follow up 05/03/2019 11:00 AM Provider Zeynep Loaiza MD Department Internal Medicine [facility] (2) Hypertensive urgency: -admission blood pressure 194/84 -Hypertensive urgency resolved with taking home blood pressure medications and dialysis on 04/27/19Friday (3) ESRD (end stage renal disease) on dialysis: -Patient is on dialysis schedule every Friday, , and Friday -patient received dialysis on 04/27/19Friday, Patient may resume dialysis as outpatient on 04/29/19 (4) Paroxysmal atrial fibrillation: -Currently paced rhythm -Rhythm controlled on amiodarone and rate controlled on beta-martine -On Coumadin; INR is 2.7 Thrombocytopenia -appears to be chronic with fluctuating platelet counts under 100,000 for at least the last 6 months -Patient should follow up with primary care doctor who can offer hematology outpatient referral if needed (5) Idiopathic cardiomyopathy: -EF 45 to 50% -patients is on dialysis and may continue home dose torsemide (6) Diabetes mellitus, type II: -Hgb A1c 7.7 12/2018 -patient may resume home dose insulin on discharge (7) H/O TIA (transient ischemic attack) and stroke: -history of stroke in the past -No acute stroke on this admission -no acute neurological symptoms on this admission -Continue aspirin and statin (8) DVT prophylaxis: -On Coumadin -INR is 2.7 Discharge Diagnosis: Dyspnea (possible viral respiratory infection), Hypertensive Urgency, End Stage Renal Disease and reliance on Hemodialysis, Thrombocytopenia Total Time Total Time Spent Total Time Spent (In Minutes): 40 minutes Total Time Includes: Examination of the Patient, Discharge Planning, Medication Reconciliation and Communication With Other Providers Discharge Plan Discharge Items Patient Disposition: Home - Self-Care Reason For Visit: SHORTNESS OF BREATH Discharge Diagnosis: Dyspnea (possible viral respiratory infection), Hypertensive Urgency, End Stage Renal Disease and reliance on Hemodialysis, Thrombocytopenia Condition on Discharge: Good Activity: Resume your previous activity Non-emergency contact: Primary Care Provider Call non-emergency contact if: you have any medication questions Follow-up/Referrals: Zeynep oJhnson MD [Primary Care Provider] - Diet: Dialysis Renal and Low Sodium (2gm) Addtl Attending Provider Instructions: (33-year-old female with history of paroxysmal atrial fibrillation, CHF, PAF, end-stage renal disease on hemodialysis, and other problems. -main symptoms of Dyspnea over past 24 hours with occasional cough and also found to be very hypertensive. -Chest x-ray shows some bibasilar atelectasis, but no evidence of CHF pneumonia, pleural effusion. -Does not appear to be fluid overloaded. received dialysis on 04/27/19 as inpatient -May have viral respiratory tract infection -antibiotics does not appear to be needed at this time) -Patient may resume dialysis as outpatient on 04/29/19 -primary care doctor follow up 05/03/2019 11:00 AM Provider Zeynep Loaiza MD Department Internal Medicine [facility] Thrombocytopenia appears to be chronic with fluctuating platelet counts under 100,000 for at least the last 6 months -Patient should follow up with primary care doctor who can offer hematology outpatient referral if needed Pending Studies at Discharge: No Stand-Alone Forms: My [facility] Medications and DC Order Prescriptions: Continued atorvastatin 40 mg tablet 40 mg PO HS RF: 0 carvedilol 25 mg tablet 50 mg PO BID RF: 0 torsemide 20 mg tablet 20 mg PO QAM RF: 0 amiodarone 200 mg tablet 200 mg PO QAM RF: 0 warfarin 4 mg tablet 4 mg PO SUMOTUTHFRSA RF: 0 ranitidine HCl 150 mg tablet 150 mg PO BID RF: 0 Novolog Flexpen U-100 Insulin 100 unit/mL (3 mL) Insulin Pen SUBCUT UD RF: 0 calcium acetate 667 mg capsule 1 cap PO TIDM RF: 0 Lantus Solostar U-100 Insulin 100 unit/mL (3 mL) insulin pen 18 units subcut PM RF: 0 aspirin 81 mg Tablet,Delayed Release (Dr/Ec) 81 mg PO QAM RF: 0 warfarin 4 mg tablet 6 mg PO WE RF: 0 hydralazine 50 mg tablet 50 mg PO TID RF: 0 lorazepam [Ativan] 0.5 mg tablet 0.5 mg PO TID PRN (Reason: Anxiety) RF: 0 Discharge Orders: Discharge Order (Routine); Ordered 04/28/19 Ordered By: Alex Calvo Admission Data Admit Date/Time: 04/27/19 11:39 Attending Provider: Alex Calvo Admit Provider: Phil Stephens Primary Care Provider: Zeynep Johnson Other Providers: Phil Stephens ; Kasey Anthony
[2019-04-28] MEDS ORDERED: WARFARIN SOD 6 MG TAB PO SCH (16:00)
[2019-04-29] MEDS ORDERED: WARFARIN SOD 4 MG TAB PO SCH (16:00)
== END 2019-04-28 13:45 | disposition home or self-care (01) | DRG 205 ==
LOC: ED 06:40 → SUATTDRO 11:39 → 3E 11:39

== ENCOUNTER 2019-09-03 16:36 | Inpatient (IN) ==
[2019-09-03] MEDS ORDERED: ALBUT/IPRATROP 3MG/0.5MG NEB 3 ML VIAL NEB STA ×2 (17:16→19:45)
[2019-09-03 18:13] LABS: Base Excess VBG 5.4 mEq/L; HCO3 VBG 31 mmol/L; PCO2 VBG 48 mmHg (38-50); PO2 VBG 26 mmHg; pH VBG 7.42 (7.36-7.41)
[2019-09-03 18:16] LABS: Oxygen Saturation VBG < 60.0 %
[2019-09-03 18:24] LABS: Hematocrit (blood only) 33.9 % (37-47); Hemoglobin 11.2 g/dL (12.0-16.0); Mean Corpuscular Hemoglobin 32.7 pg (25-34); Mean Corpuscular Volume 98.8 fL (80-100); RDW Coefficient of Variation 14.9 % (11.5-14.5); RDW Standard Deviation 53.8 fL (36.4-46.3); Red Blood Count 3.43 M/uL (4.2-5.4); White Blood Count 4.39 K/uL (4.8-10.8)
--- NOTE | 2019-09-03 18:29 | XRay Report ---
XR chest 1V portable HISTORY: SEPSIS COMPARISON: Chest 04/27/2019. FINDINGS: A few bibasilar linear densities have improved. This favors resolving atelectasis. Calcifie d granulomas within the left lung base, unchanged. The heart remains moderately enlarged. No pleural effusions. No pneumothorax. No evidence for pulmonary edema. Left-sided pacemaker/defibrillator is ag ain noted. IMPRESSION: 1. Stable cardiomegaly. 2. Improvement in the bibasilar linear densities suggesting resolving atelectasis. ACT 112: Negative or not required by law. Electronically signed by: Cristian Renteria M.D. 09/03/2019 6:27 PM
[2019-09-03 18:38] LABS: Albumin Level 3.6 gm/dl (3.4-5.0); Calcium 8.8 mg/dl (8.5-10.1); Creatinine Clr Calc Pharmacy 13.9 ml/min; Est GFR (African American) 14.5; Est GFR (Non-African American) 12.5
[2019-09-03 18:43] LABS: Bilirubin,Total 1.6 mg/dl (0.2-1); Globulin 3.6 gm/dl (2.5-4.0); Phosphorus 2.2 mg/dl (2.5-4.9); Thyroid Stimulating Hormone 2.66 uIu/ml (0.300-4.500); Total Protein 7.2 gm/dl (6.4-8.2); Troponin I 0.022 ng/ml (0-0.045)
[2019-09-03 18:51] LABS: Prothrombin Time 65.2 Seconds (9.0-12.0)
[2019-09-03 18:53] LABS: Basophils # (auto) 0.01 K/uL (0-0.2); Basophils % (auto) 0.2 %; Eosinophils # (auto) 0.02 K/uL (0-0.5); Eosinophils % (auto) 0.5 %; Immature Granulocytes # (auto) 0.01 K/uL (0.00-0.02); Immature Granulocytes % (auto) 0.2 %; Lymphocytes # (auto) 0.57 K/uL (1.2-3.4); Mean Platelet Volume 12.8 fL (7.4-10.4); Monocytes # (auto) 0.38 K/uL (0.11-0.59); Monocytes % (auto) 8.7 %; Neutrophils % (auto) 77.4 %; Ovalocytes 1+; Platelet Count 48 K/uL (130-400); Schistocytes 1+; Toxic Vacuolation 1+
[2019-09-03 18:55] LABS: INR 7.3 (0.9-1.1)
[2019-09-03 18:56] LABS: Partial Thromboplastin Time 55.3 Seconds (21.0-31.0)
[2019-09-03 19:06] LABS: Influenza A virus by PCR Neg for Influ A (Neg); Influenza B virus by PCR Neg for Influ B (Neg)
[2019-09-03] MEDS ORDERED: DOXYCYCLINE HYCLATE 100 MG in DEXTROSE 5% 100 ML IV STA (19:56)
[2019-09-03] MEDS ORDERED: DEXAMETHASONE **PF** INJ 10 MG/ML VIAL IV ONE (19:56)
[2019-09-03] MEDS ORDERED: cefTRIAXone SODIUM 2,000 MG/70 ML BAG IV STA (19:56)
[2019-09-03 20:42] LABS: Potassium 3.2 mmol/L (3.5-5.1)
[2019-09-03 20:47] LABS: Magnesium 1.9 mg/dl (1.8-2.4)
--- NOTE | 2019-09-03 23:38 | Emergency Department Note ---
Entered by Mary Kasper acting as a scribe for Zeyad Spear MD History of Present Illness General Chief complaint: Referred by Doctor Stated complaint: REFERRED BY DOCTOR Time Seen by Provider: 09/03/19 16:47 Source: patient Mode of arrival: EMS Limitations: no limitations History of Present Illness Onset (ago): week(s) 2 Location: chest Radiation: non-radiation Pain Consistency: + constant Exacerbated By: + movement (exertion) and + other (laying down flat) Associated symptoms: + cough and + nausea/vomiting The patient is a 74 year old female who presents to the ED with complaints of persistent respiratory problems. She was brought to the ED via EMS. She was diagnosed with pneumonia recently but has had increasing breathing issues and was hypothermic in the field. She denies any chest pain but admits to a cough, nausea and vomiting. Exertion and laying flat worsen her symptoms. The patient was last dialyzed yesterday. Home Medications Home Medications Medication Instructions Recorded Confirmed Type Lantus Solostar U-100 Insulin 16 units SUBCUT PM 10/30/18 09/03/19 History amiodarone 200 mg PO QAM 10/30/18 09/03/19 History atorvastatin 40 mg PO HS 10/30/18 09/03/19 History calcium acetate(phosphat bind) 1 cap PO TIDM 10/30/18 09/03/19 History carvedilol 50 mg PO BID 10/30/18 09/03/19 History insulin aspart U-100 [Novolog 0 unit SUBCUT UD 10/30/18 09/03/19 History Flexpen U-100 Insulin] torsemide 20 mg PO QAM 10/30/18 09/03/19 History hydralazine 50 mg PO TID 04/27/19 09/03/19 History lorazepam [Ativan] 0.5 mg PO TID PRN 04/27/19 09/03/19 History warfarin 4 mg PO DAILY 04/27/19 09/03/19 History Lactobacillus rhamnosus GG 1 cap PO TID 09/03/19 09/03/19 History [Culturelle] acetaminophen 1,000 mg PO Q6H PRN 09/03/19 09/03/19 History albuterol sulfate 2 puff INHALATION Q4 PRN 09/03/19 09/03/19 History amoxicillin-pot clavulanate 3.125 ml/kg PO DAILY 09/03/19 09/03/19 History aspirin [Aspirin Low Dose] 81 mg PO DAILY 09/03/19 09/03/19 History docusate sodium 100 mg PO DAILY 09/03/19 09/03/19 History doxycycline hyclate 100 mg PO BID 09/03/19 09/03/19 History famotidine [Pepcid] 20 mg PO DAILY 09/03/19 09/03/19 History fluticasone propionate [Flonase 2 spray INTRANASAL DAILY 09/03/19 09/03/19 History Allergy Relief] lidocaine-prilocaine 1 applic TOPICAL UD 09/03/19 09/03/19 History magnesium citrate 120 ml PO DAILY PRN 09/03/19 09/03/19 History omeprazole 40 mg PO DAILY 09/03/19 09/03/19 History ondansetron HCl [Zofran] 4 mg PO Q8H PRN 09/03/19 09/03/19 History polyethylene glycol 3350 [Miralax] 17 g PO DAILY PRN 09/03/19 09/03/19 History Allergies Allergy/AdvReac Type Severity Reaction Status Date / Time adhesive Allergy Unknown RXN TO Verified 09/03/19 19:28 ADHESIVE ON NITRO PATCH strawberry Allergy Unknown EDEMA OF Verified 09/03/19 19:29 FACE /LIPS /TONGUE DESIREE Inhibitors AdvReac Mild COUGH Verified 09/03/19 19:28 diphenhydramine AdvReac Mild VERY WEAK, Verified 09/03/19 19:28 CHF lisinopril AdvReac Mild COUGH Verified 09/03/19 19:28 nitroglycerin AdvReac Mild HEADACHE/NA Verified 09/03/19 19:28 USEA Sulfa (Sulfonamide AdvReac Mild "KNOCKS ME Verified 09/03/19 19:28 Antibiotics) OUT" amlodipine AdvReac Unknown RETAIN Verified 09/03/19 19:28 FLUID Past Med/Surg History Medical History Anemia of renal disease (Chronic) Anxiety (Chronic) Biventricular ICD (implantable cardioverter-defibrillator) in place (Chronic) Degenerative cervical disc (Chronic) Depression (Chronic) Diabetes mellitus, type II (Chronic) Endocarditis (Resolved) Pacemaker wire vegetation ESRD (end stage renal disease) on dialysis (Chronic) GERD (gastroesophageal reflux disease) (Chronic) H/O TIA (transient ischemic attack) and stroke (Chronic) Hip fracture, left (Resolved) HTN (hypertension) (Chronic) Hx of supraventricular tachycardia (Chronic) Idiopathic cardiomyopathy (Chronic) Left bundle branch block (Chronic 11/07/11) 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) use of 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 (Chronic) Paroxysmal atrial fibrillation (Chronic) Pericardial effusion (Resolved) Proteinuria (Chronic) PVD (peripheral vascular disease) (Chronic) Secondary hyperparathyroidism (Chronic) Slow transit constipation (Chronic) Streptococcus bovis infection (Resolved) Bacteremia with pacemaker lead vegetation Surgical History H/O dilation and curettage (Chronic) History of appendectomy (Chronic) History of cataract surgery (Chronic) History of hysterectomy (Chronic) History of left hip hemiarthroplasty (Chronic) S/P pericardial surgery (Chronic) Pericardial window for pericardial effusion Family History Brother Diabetes Mother Diabetes Coronary heart disease Sister Diabetes Social History Preferred Language: Welsh Communication Ability: Effective Dairy Bacteriologist Required: No Beliefs That Will Affect Care: None Current Living Situation: Family Current Living Situation Comment: Cousin lives with her-Guillaume Feels Safe at Home: Yes Safety Concerns: Feels Safe At This Time Smoking Status: Never smoker Hx Alcohol Use: No Hx Substance Use: No Review of Systems See HPI for pertinent positives & negatives. and A total of 10 systems reviewed and were otherwise negative Physical Exam Vital Signs Vital Signs - 24 hr 09/03/19 16:36 09/03/19 17:01 09/03/19 17:30 Temperature 36.8 C Temperature Source Oral Pulse Rate 60 60 Pulse Rate [Right Finger] Pulse Rate from SpO2 Sensor 60 60 Pulse Rhythm Respiratory Rate 28 H 28 H 24 Respiratory Effort / Characteristics Non-Labored Respiratory Depth Normal Respiratory Pattern Regular Blood Pressure 165/138 H 178/75 H 176/90 H Blood Pressure Mean 147 109 153 Pulse Oximetry 94 97 97 Oxygen Delivery Method Room Air Oxygen Flow Rate Sepsis Recent Fever Within 48 Hours No Sepsis New/Unexplained Change in Mental Status No Sepsis Action Taken by Nursing No Action Required 09/03/19 17:47 09/03/19 18:12 09/03/19 18:36 Temperature Temperature Source Pulse Rate 60 Pulse Rate [Right Finger] 60 Pulse Rate from SpO2 Sensor 60 Pulse Rhythm Regular Respiratory Rate 18 18 23 Respiratory Effort / Characteristics Non-Labored Spontaneous Respiratory Depth Respiratory Pattern Blood Pressure 173/76 H Blood Pressure Mean 140 Pulse Oximetry 95 95 93 Oxygen Delivery Method Room Air Room Air Oxygen Flow Rate Sepsis Recent Fever Within 48 Hours Sepsis New/Unexplained Change in Mental Status Sepsis Action Taken by Nursing 09/03/19 18:45 09/03/19 19:00 09/03/19 19:16 Temperature Temperature Source Pulse Rate 60 61 60 Pulse Rate [Right Finger] Pulse Rate from SpO2 Sensor 60 61 61 Pulse Rhythm Respiratory Rate 26 H 24 26 H Respiratory Effort / Characteristics Respiratory Depth Respiratory Pattern Blood Pressure 196/80 H 182/74 H 173/84 H Blood Pressure Mean 93 121 145 Pulse Oximetry 92 93 95 Oxygen Delivery Method Oxygen Flow Rate Sepsis Recent Fever Within 48 Hours Sepsis New/Unexplained Change in Mental Status Sepsis Action Taken by Nursing 09/03/19 19:30 09/03/19 19:45 09/03/19 20:00 Temperature Temperature Source Pulse Rate 61 61 67 Pulse Rate [Right Finger] Pulse Rate from SpO2 Sensor 60 60 67 Pulse Rhythm Respiratory Rate 29 H 26 H 19 Respiratory Effort / Characteristics Respiratory Depth Respiratory Pattern Blood Pressure 179/69 H 173/87 H 173/80 H Blood Pressure Mean 130 115 123 Pulse Oximetry 95 93 92 Oxygen Delivery Method Oxygen Flow Rate Sepsis Recent Fever Within 48 Hours Sepsis New/Unexplained Change in Mental Status Sepsis Action Taken by Nursing 09/03/19 20:04 09/03/19 20:15 09/03/19 20:30 Temperature Temperature Source Pulse Rate 63 60 Pulse Rate [Right Finger] 62 Pulse Rate from SpO2 Sensor 62 61 Pulse Rhythm Respiratory Rate 20 24 21 Respiratory Effort / Characteristics Non-Labored Spontaneous Respiratory Depth Respiratory Pattern Blood Pressure 176/81 H 166/65 H Blood Pressure Mean 149 129 Pulse Oximetry 92 95 91 Oxygen Delivery Method Room Air Oxygen Flow Rate Sepsis Recent Fever Within 48 Hours Sepsis New/Unexplained Change in Mental Status Sepsis Action Taken by Nursing 09/03/19 20:45 09/03/19 21:00 09/03/19 21:15 Temperature Temperature Source Pulse Rate 60 63 60 Pulse Rate [Right Finger] Pulse Rate from SpO2 Sensor 60 61 60 Pulse Rhythm Respiratory Rate 23 26 H 23 Respiratory Effort / Characteristics Respiratory Depth Respiratory Pattern Blood Pressure 168/61 H 167/60 H 171/65 H Blood Pressure Mean 89 110 95 Pulse Oximetry 91 Oxygen Delivery Method Oxygen Flow Rate Sepsis Recent Fever Within 48 Hours Sepsis New/Unexplained Change in Mental Status Sepsis Action Taken by Nursing 09/03/19 21:31 09/03/19 21:45 09/03/19 22:00 Temperature Temperature Source Pulse Rate 59 L 62 60 Pulse Rate [Right Finger] Pulse Rate from SpO2 Sensor 60 62 61 Pulse Rhythm Respiratory Rate 24 24 25 H Respiratory Effort / Characteristics Respiratory Depth Respiratory Pattern Blood Pressure 152/70 H 169/62 H 157/85 H Blood Pressure Mean 75 124 130 Pulse Oximetry 97 96 96 Oxygen Delivery Method Nasal Cannula Nasal Cannula Nasal Cannula Oxygen Flow Rate 2 2 2 Sepsis Recent Fever Within 48 Hours Sepsis New/Unexplained Change in Mental Status Sepsis Action Taken by Nursing 09/03/19 22:15 09/03/19 22:30 09/03/19 22:45 Temperature Temperature Source Pulse Rate 61 60 60 Pulse Rate [Right Finger] Pulse Rate from SpO2 Sensor 59 L 60 60 Pulse Rhythm Respiratory Rate 27 H 24 28 H Respiratory Effort / Characteristics Respiratory Depth Respiratory Pattern Blood Pressure 163/59 H 157/61 H 158/83 H Blood Pressure Mean 96 109 117 Pulse Oximetry 97 96 96 Oxygen Delivery Method Nasal Cannula Nasal Cannula Nasal Cannula Oxygen Flow Rate 2 2 2 Sepsis Recent Fever Within 48 Hours Sepsis New/Unexplained Change in Mental Status Sepsis Action Taken by Nursing 09/03/19 22:46 09/03/19 23:00 09/03/19 23:01 Temperature Temperature Source Pulse Rate 60 60 60 Pulse Rate [Right Finger] Pulse Rate from SpO2 Sensor 60 60 60 Pulse Rhythm Respiratory Rate 24 24 27 H Respiratory Effort / Characteristics Respiratory Depth Respiratory Pattern Blood Pressure 157/71 H Blood Pressure Mean 118 Pulse Oximetry 96 95 96 Oxygen Delivery Method Oxygen Flow Rate Sepsis Recent Fever Within 48 Hours Sepsis New/Unexplained Change in Mental Status Sepsis Action Taken by Nursing 09/03/19 23:15 09/03/19 23:30 Temperature Temperature Source Pulse Rate 60 61 Pulse Rate [Right Finger] Pulse Rate from SpO2 Sensor 60 61 Pulse Rhythm Respiratory Rate 20 20 Respiratory Effort / Characteristics Respiratory Depth Respiratory Pattern Blood Pressure 163/84 H 157/70 H Blood Pressure Mean 104 118 Pulse Oximetry 95 97 Oxygen Delivery Method Oxygen Flow Rate Sepsis Recent Fever Within 48 Hours Sepsis New/Unexplained Change in Mental Status Sepsis Action Taken by Nursing GENERAL: Awake, alert, chronically ill-appearing, in no distress HENT: Normocephalic, atraumatic. Oropharynx unremarkable. EYES: Normal conjunctiva. Sclera non-icteric. NECK: Supple. No nuchal rigidity. FROM. No JVD. RESPIRATORY: Diminished breath sounds at the bases and scattered wheezes and rhonchi. CARDIAC: Regular rate, normal rhythm. Extremities warm and well perfused. Pulses equal. ABDOMEN: Soft, non-distended. No tenderness to palpation. No rebound or guarding. No masses. RECTAL: Deferred. MUSCULOSKELETAL: Chest examination reveals no tenderness. The back is symmetrical on inspection without obvious abnormality. There is no CVA tenderness to palpation. No joint edema. LOWER EXTREMITIES: Calves are equal size bilaterally and non-tender. No edema. No discoloration. NEURO: Normal sensorium. No sensory or motor deficits noted. SKIN: No rash or jaundice noted. Course Course 1658: The patient was evaluated in room B3A and a complete history and physical were performed. 1854: Nursing informed me the patients INR is 7.3 and her PTT is 55.3. 2009: I discussed the patients case with Dr. Jamison, [facility] Hospitalist. The patient will be further evaluated. 2019: I reevaluated the patient. She is resting comfortably. I discussed my r ecommendation she remain in the hospital for further evaluation and management and she is agreeable with the plan. Administered Medications Lorazepam (Ativan) 0.5 mg PO TID PRN PRN Reason: Anxiety Stop: 10/04/19 01:00 Last Admin: 09/04/19 02:49 Dose: 0.5 mg Documented by: [id number] Discontinued Medications Albuterol (Duoneb) 3 ml NEB NOW STA Stop: 09/03/19 17:17 Last Admin: 09/03/19 17:45 Dose: 3 ml Documented by: [id number] Albuterol (Duoneb) 3 ml NEB NOW STA Stop: 09/03/19 19:46 Last Admin: 09/03/19 20:04 Dose: 3 ml Documented by: [id number] Dexamethasone Sodium Phosphate (Decadron Pf) 10 mg IV NOW ONE Stop: 09/03/19 19:57 Last Admin: 09/03/19 20:21 Dose: 10 mg Documented by: [id number] Ceftriaxone Sodium (Rocephin) 2,000 mg in 70 mls @ 140 mls/hr IV NOW STA Stop: 09/03/19 20:25 Last Infusion: 09/03/19 20:54 Dose: 0 mls/hr Documented by: [id number] Admin: 09/03/19 20:21 Dose: 140 mls/hr Documented by: [id number] Doxycycline Hyclate 100 mg/ (Dextrose) 110 mls @ 50 mls/hr IV NOW STA Stop: 09/03/19 22:07 Last Infusion: 09/03/19 22:46 Dose: 0 mls/hr Documented by: [id number] Admin: 09/03/19 20:53 Dose: 50 mls/hr Documented by: [id number] Medical Decision Making Differential Diagnosis Differential diagnoses includes but is not limited to pneumonia, bronchitis, COPD/Asthma exacerbation, pneumothorax, pulmonary embolism, congestive heart failure, acute coronary syndrome. Medical Records Attestation: I reviewed the patient's medical records. Home Medications Current Medication List: was personally reviewed by me Laboratory Data Attestation: I reviewed the patient's lab results. Result diagrams: 09/03/19 17:47 09/03/19 20:00 Lab Results 09/03/19 09/03/19 09/03/19 Range/Units 17:47 17:47 17:47 WBC 4.39 L (4.8-10.8) K/uL RBC 3.43 L (4.2-5.4) M/uL Hgb 11.2 L (12.0-16.0) g/dL Hct 33.9 L (37-47) % MCV 98.8 (80-100) fL MCH 32.7 (25-34) pg MCHC 33.0 (32-36) g/dL RDW Std Deviation 53.8 H (36.4-46.3) fL RDW Coeff of Jacobo 14.9 H (11.5-14.5) % Plt Count 48 L (130-400) K/uL MPV 12.8 H (7.4-10.4) fL Immature Gran % (Auto) 0.2 % Neut % (Auto) 77.4 % Lymph % (Auto) 13.0 % Kidder % (Auto) 8.7 % Eos % (Auto) 0.5 % Baso % (Auto) 0.2 % Immature Gran # (Auto) 0.01 (0.00-0.02) K/uL Neut # (Auto) 3.40 (1.4-6.5) K/uL Lymph # (Auto) 0.57 L (1.2-3.4) K/uL Kidder # (Auto) 0.38 (0.11-0.59) K/uL Eos # (Auto) 0.02 (0-0.5) K/uL Baso # (Auto) 0.01 (0-0.2) K/uL Toxic Vacuolation 1+ Ovalocytes 1+ Schistocytes 1+ PT 65.2 H (9.0-12.0) Seconds INR 7.3 H* (0.9-1.1) APTT 55.3 H* (21.0-31.0) Seconds PTT Ratio 2.0 VBG pH (7.36-7.41) VBG pCO2 (38-50) mmHg VBG pO2 mmHg VBG HCO3 mmol/L VBG O2 Saturation % VBG Base Excess mEq/L Barometric Pressure mm/Hg Sodium 134 L (136-145) mmol/L Potassium (3.5-5.1) mmol/L Chloride 98 (98-107) mmol/L Carbon Dioxide 28 (21-32) mmol/L Anion Gap 8.0 (3-11) BUN 20 H (7-18) mg/dl Creatinine 3.42 H (0.6-1.2) mg/dl Est Cr Clr Drug Dosing 13.9 ml/min Est GFR ( Amer) 14.5 Est GFR (Non-Af Amer) 12.5 BUN/Creatinine Ratio 6.0 L (10-20) Glucose 108 H (70-99) mg/dl Lactate (0.4-2.0) mmol/L Calcium 8.8 (8.5-10.1) mg/dl Phosphorus 2.2 L (2.5-4.9) mg/dl Magnesium (1.8-2.4) mg/dl Total Bilirubin 1.6 H (0.2-1) mg/dl AST (15-37) U/L ALT 19 (12-78) U/L Alkaline Phosphatase 126 H (45-117) U/L Troponin I 0.022 (0-0.045) ng/ml Total Protein 7.2 (6.4-8.2) gm/dl Albumin 3.6 (3.4-5.0) gm/dl Globulin 3.6 (2.5-4.0) gm/dl Albumin/Globulin Ratio 1.0 (0.9-2) TSH 2.660 (0.300-4.500) uIu/ml Influenza Type A (PCR) (Neg) Influenza Type B (PCR) (Neg) 09/03/19 09/03/19 09/03/19 Range/Units 17:59 17:59 18:09 WBC (4.8-10.8) K/uL RBC (4.2-5.4) M/uL Hgb (12.0-16.0) g/dL Hct (37-47) % MCV (80-100) fL MCH (25-34) pg MCHC (32-36) g/dL RDW Std Deviation (36.4-46.3) fL RDW Coeff of Jacobo (11.5-14.5) % Plt Count (130-400) K/uL MPV (7.4-10.4) fL Immature Gran % (Auto) % Neut % (Auto) % Lymph % (Auto) % Kidder % (Auto) % Eos % (Auto) % Baso % (Auto) % Immature Gran # (Auto) (0.00-0.02) K/uL Neut # (Auto) (1.4-6.5) K/uL Lymph # (Auto) (1.2-3.4) K/uL Kidder # (Auto) (0.11-0.59) K/uL Eos # (Auto) (0-0.5) K/uL Baso # (Auto) (0-0.2) K/uL Toxic Vacuolation Ovalocytes Schistocytes PT (9.0-12.0) Seconds INR (0.9-1.1) APTT (21.0-31.0) Seconds PTT Ratio VBG pH 7.42 H (7.36-7.41) VBG pCO2 48 (38-50) mmHg VBG pO2 26 mmHg VBG HCO3 31 mmol/L VBG O2 Saturation < 60.0 % VBG Base Excess 5.4 mEq/L Barometric Pressure 741.3 mm/Hg Sodium (136-145) mmol/L Potassium (3.5-5.1) mmol/L Chloride (98-107) mmol/L Carbon Dioxide (21-32) mmol/L Anion Gap (3-11) BUN (7-18) mg/dl Creatinine (0.6-1.2) mg/dl Est Cr Clr Drug Dosing ml/min Est GFR ( Amer) Est GFR (Non-Af Amer) BUN/Creatinine Ratio (10-20) Glucose (70-99) mg/dl Lactate 1.7 (0.4-2.0) mmol/L Calcium (8.5-10.1) mg/dl Phosphorus (2.5-4.9) mg/dl Magnesium (1.8-2.4) mg/dl Total Bilirubin (0.2-1) mg/dl AST (15-37) U/L ALT (12-78) U/L Alkaline Phosphatase (45-117) U/L Troponin I (0-0.045) ng/ml Total Protein (6.4-8.2) gm/dl Albumin (3.4-5.0) gm/dl Globulin (2.5-4.0) gm/dl Albumin/Globulin Ratio (0.9-2) TSH (0.300-4.500) uIu/ml Influenza Type A (PCR) Neg for Influ A (Neg) Influenza Type B (PCR) Neg for Influ B (Neg) 09/03/19 09/03/19 Range/Units 19:09 20:00 WBC (4.8-10.8) K/uL RBC (4.2-5.4) M/uL Hgb (12.0-16.0) g/dL Hct (37-47) % MCV (80-100) fL MCH (25-34) pg MCHC (32-36) g/dL RDW Std Deviation (36.4-46.3) fL RDW Coeff of Jacobo (11.5-14.5) % Plt Count (130-400) K/uL MPV (7.4-10.4) fL Immature Gran % (Auto) % Neut % (Auto) % Lymph % (Auto) % Kidder % (Auto) % Eos % (Auto) % Baso % (Auto) % Immature Gran # (Auto) (0.00-0.02) K/uL Neut # (Auto) (1.4-6.5) K/uL Lymph # (Auto) (1.2-3.4) K/uL Kidder # (Auto) (0.11-0.59) K/uL Eos # (Auto) (0-0.5) K/uL Baso # (Auto) (0-0.2) K/uL Toxic Vacuolation Ovalocytes Schistocytes PT (9.0-12.0) Seconds INR (0.9-1.1) APTT (21.0-31.0) Seconds PTT Ratio VBG pH (7.36-7.41) VBG pCO2 (38-50) mmHg VBG pO2 mmHg VBG HCO3 mmol/L VBG O2 Saturation % VBG Base Excess mEq/L Barometric Pressure mm/Hg Sodium (136-145) mmol/L Potassium Cancelled 3.2 L (3.5-5.1) mmol/L Chloride (98-107) mmol/L Carbon Dioxide (21-32) mmol/L Anion Gap (3-11) BUN (7-18) mg/dl Creatinine (0.6-1.2) mg/dl Est Cr Clr Drug Dosing ml/min Est GFR ( Amer) Est GFR (Non-Af Amer) BUN/Creatinine Ratio (10-20) Glucose (70-99) mg/dl Lactate (0.4-2.0) mmol/L Calcium (8.5-10.1) mg/dl Phosphorus (2.5-4.9) mg/dl Magnesium Cancelled 1.9 (1.8-2.4) mg/dl Total Bilirubin (0.2-1) mg/dl AST Cancelled 34 (15-37) U/L ALT (12-78) U/L Alkaline Phosphatase (45-117) U/L Troponin I (0-0.045) ng/ml Total Protein (6.4-8.2) gm/dl Albumin (3.4-5.0) gm/dl Globulin (2.5-4.0) gm/dl Albumin/Globulin Ratio (0.9-2) TSH (0.300-4.500) uIu/ml Influenza Type A (PCR) (Neg) Influenza Type B (PCR) (Neg) Imaging Data Radiologist's Impression: Radiology results as stated below per my review and the radiologist's interpretation: XR chest 1V portable HISTORY: SEPSIS COMPARISON: Chest 04/27/2019. FINDINGS: A few bibasilar linear densities have improved. This favors resolving atelectasis. Calcified granulomas within the left lung base, unchanged. The heart remains moderately enlarged. No pleural effusions. No pneumothorax. No evidence for pulmonary edema. Left-sided pacemaker/defibrillator is again noted. IMPRESSION: 1. Stable cardiomegaly. 2. Improvement in the bibasilar linear densities suggesting resolving atelectasis. ACT 112: Negative or not required by law. Electronically signed by: Cristian Renteria M.D. 09/03/2019 6:27 PM ECG Data Attestation: I personally reviewed and interpreted this ECG as follows: Indication: + SOB/dyspnea Rate (beats per minute): 63 Rhythm: + other (AV dual paced) ECG Intervals/blocks: + Normal QT-c (471) ECG ST segments: no ST depression and no ST elevation ECG Findings: no PACs and no PVCs Blood Pressure Blood Pressure Findings: Elevated blood pressure Blood Pressure Disposition: further management by hospitalist MDM Narrative The patient is a pleasant 74-year-old woman with a past medical history of hypertension, end-stage renal disease on dialysis, cardiomyopathy with a history of thrombus and paroxysmal A. fib on Coumadin, status post AICD/PPM who presents emergency department for evaluation of persistent cough and congestion after being managed outpatient by her PCP for pneumonia treated with course of Augmentin and doxycycline but not having any improvement per HPI. The patient is chronically ill-appearing but no acute distress, afebrile stable vital signs. On exam patient has diminished breath sounds at the bases with scattered wheezes and rhonchi. Chest x-ray without any overt focal infiltrates and does show improvement from basilar densities compared to prior, April 2019. WBC 4.3, nonspecific. H/H 11.2/33.9 similar to prior range of values. Platelets 48K similar to prior range of values. INR is supratherapeutic at 7.3. VBG unremarkable. Chemistry without acidosis. Creatinine 3.4 similar to prior range of values in the setting of the patient's end-stage renal disease on dialysis. Potassium 3.2, phosphorus 2.2 and magnesium 1.9. LFTs unremarkable. Troponin 0.022, within normal range. Flu negative. Patient did feel some improvement after DuoNeb. While the patient has no focal infiltrates given the patient's persistent congestion/cough in setting of being on antibiotics recently will treat for bronchopneumonia with addition of ceftriaxone and continuation of her doxycycline. We will also give dose of dexamethasone for her bronchospasm in the setting of her history of asthma. Patient is agreeable with plan for admission. Given the patient is not having any symptoms of active bleeding and her H/H is stable will defer management of supratherapeutic INR to admitting team. Case was discussed with Dr. Jamison, [facility] hospitalist, who will evaluate the patient for admission. Impression & Plan Bronchopneumonia, 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) use of 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, Automatic implantable cardioverter-defibrillator in situ, End-stage renal disease (ESRD) Discharge Plan Visit Data *Final* Discharge Date/Time: 09/04/19 00:19 Chief Complaint: Referred by Doctor Stated Complaint: REFERRED BY DOCTOR ED Provider: Zeyad Spear Discharge Problem: Bronchopneumonia, 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) use of 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, Automatic im plantable cardioverter-defibrillator in situ, End-stage renal disease (ESRD) Patient Disposition: Admitted As Inpatient Discharge Instructions Interventions: ED Discharge Assessment Last Done: 09/04/19 00:19 The scribe's documentation has been prepared under my direction and personally reviewed by me in its entirety. I confirm that the note above accurately reflects all work, treatment, procedures, and medical decision making performed by me.
[2019-09-04] MEDS ORDERED: XOPENEX/ATROVENT 1.25mg/0.5MG NEB COMBO NEB PRN (01:01)
[2019-09-04] MEDS ORDERED: LIDOCAINE/PRILOCAINE 2.5% EA CRM EXT PRN (01:01)
[2019-09-04] MEDS ORDERED: ALBUTEROL HFA 8 GM INHALER INH PRN (01:01)
[2019-09-04 01:41] LABS: Appearance Urine Turbid (Clear); Bacteria Urine Automated Negative (Negative); Blood Urine Negative (Negative); Color Urine Dark Yellow; Epithelial Cell Urine Auto >30 /lpf (0-5); Glucose Urine UA Negative (Negative); Ketones Urine Negative (Negative); Leukocyte Esterase Urine 2+ (Negative); Nitrite Urine Positive (Negative); Protein Urine 3+ (Negative); Specific Gravity Urine 1.027 (1.000-1.030); Urobilinogen Urine Negative (Negative); WBC Urine Automated >30 /hpf (0-5)
[2019-09-04 01:48] LABS: Bilirubin Urine Negative (Negative); Ictotest Urine Negative (Negative)
[2019-09-04 01:57] LABS: Cast Urine Automated 0 /lpf (0-5)
--- NOTE | 2019-09-04 02:39 | History and Physical Report ---
DATE OF ADMISSION: 09/03/2019 CHIEF COMPLAINT: Ongoing cough, nausea and diarrhea. HISTORY OF PRESENT ILLNESS: This is a 73-year-old female with past medical history significant for end-stage renal disease on hemodialysis, paroxysmal atrial fibrillation on amiodarone, Coreg and Coumadin, chronic thrombocytopenia, type 2 diabetes, history of PAF,, history of chronic systolic heart failure with EF of 40-45%, peripheral vascular disease, hyperlipidemia, secondary hyperparathyroidism, left bundle branch block, hypertension, GERD, senile osteoporosis, anemia of chronic kidney disease, depression, history of biventricular ICDs, anxiety, lives with her cousin, walks with the help of a walker, comes because of ongoing cough for several days now. The patient treated with Augmentin for possible for pneumonia and she also is on doxycycline for left upper extremity cellulitis which seems to be improved. But cough is not getting better. Also lately in the last 2 days she also developed nausea, vomited a few times and also had diarrhea a few episodes. Denies any blood in stools or black stools. No abdominal pain. Currently resting comfortably. States she is feeling weak and tired, not eaten much since yesterday but right now she wants to have some broth. Denies any chest pain. She has some dizziness while walking. No headache, no blurred vision, somewhat hard of hearing. No earaches. Once in a while she gets runny nose. She has some sore throat. When she had nebs today in the ER, she had some coughing up of some phlegm. She still makes some urine but denies any burning micturition. Because of ongoing illness and not getting better and she was sent to the ER by PCP. In the ER, she is afebrile, no leukocytosis. INR was 1.3, platelets in the 48. Flu was negative. Chest x-ray, no obvious infiltrates. EKG, paced rhythm. Hemodynamics are stable. ALLERGIES: ADHESIVE, STRAWBERRY, DESIREE INHIBITORS, DIPHENHYDRAMINE, LISINOPRIL, NITROGLYCERIN, SULFA ANTIBIOTICS AND AMLODIPINE. PAST MEDICAL HISTORY: As mentioned above. PAST SURGICAL HISTORY: AV shunts, biopsy of the breast, colonoscopy, cystoscopy, EGDs, status post pericardial window in 2015, fistulogram, status post ICD, bilateral cataract surgeries, repair of the left hip, total abdominal hysterectomy with removal of tubes, angioplasty, central dialysis treatment on the left side. MEDICATIONS: The patient is on Tylenol 1000 mg p.o. q. 6 hours p.r.n., albuterol 2 puffs inhalation q. 4 hours p.r.n., amiodarone 200 mg p.o. a.m., Augmentin daily, aspirin 81 mg p.o. daily, atorvastatin 40 mg p.o. at bedtime, calcium acetate 1 capsule p.o. t.i.d. with meals, Coreg 50 mg p.o. b.i.d., Colace 100 mg p.o. daily, doxycycline 100 mg p.o. b.i.d., famotidine 20 mg p.o. daily, Flonase 2 sprays each nostril daily, hydralazine 50 mg p.o. t.i.d., NovoLog t.i.d., lactobacillus 1 capsule t.i.d., Lantus 16 units subcutaneous p.m., lidocaine/prilocaine 1 application topical as directed, Ativan 0.5 mg p.o. t.i.d. p.r.n., magnesium citrate 120 mg p.o. daily p.r.n., omeprazole 40 mg p.o. daily, Zofran 4 mg p.o. every 8 hours p.r.n., MiraLax 17 grams p.o. daily p.r.n., torsemide 20 mg p.o. a.m., Coumadin 4 mg p.o. daily. FAMILY HISTORY: Significant for brother has diabetes, heart disorder, throat cancer. Mother has diabetes and heart disorder. Father has heart disorder. Sister has diabetes. SOCIAL HISTORY: , lives with her cousin. No smoking, no alcohol, no drug use. REVIEW OF SYMPTOMS: As per HPI. Rest of review of systems negative. PHYSICAL EXAMINATION: GENERAL: The patient is moderate built, not in acute distress. VITAL SIGNS: Temperature 36.8, pulse 60, respiratory rate 20, blood pressure 115/53, oxygen 96% on 2 liters. HEENT: No pallor, no icterus. Pupils equal, round, reactive to light. NECK: No JVD, no neck masses, no carotid bruits. CARDIOVASCULAR: S1, S2 heard, regular rate and rhythm, no murmur, no gallop. RESPIRATORY SYSTEM: Normal AP diameter. No accessory muscle use. No wheezing, no crackles. ABDOMEN: Soft, bowel sounds present, nontender. No distention. CENTRAL NERVOUS SYSTEM: Alert and oriented. Obeys commands. Moves all extremities. EXTREMITIES: No edema, no erythema seen. LABORATORY DATA: WBC 4.0, hemoglobin 11.0, hematocrit 33.9, platelets 48. PT 65.2, INR 7.3, aPTT 55.3. PH 7.42. Sodium 134, potassium 3.2, chloride 119, bicarb 28, BUN 20, creatinine 3.42, serum glucose 100, lactate 1.7, calcium 8.8, phosphorus 2.2, magnesium 1.9, total bilirubin 1.6, AST 34, ALT 19, alkaline phosphatase is 126. Troponin I 0.022. TSH is 2.6. Influenza A and B, PCR negative. IMAGING DATA: Chest x-ray, stable cardiomegaly, no acute process seen. EKG: AV dual paced rhythm with rate of 63, no significant change was found. ASSESSMENT AND PLAN: This 74-year-old female who presents with ongoing cough, nausea and diarrhea. 1. Cough, possible bronchitis versus pneumonia. Chest x-ray unremarkable. Was getting treated with Augmentin for some time now and also doxycycline. Last dose of doxycycline on 09/06/2019 for [address] course[address] will place her on IV Rocephin and continue doxycycline. Follow the response .Tessalon perle prn. 2. Nausea, vomiting and diarrhea. She is feeling somewhat better now. IV Zofran p.r.n. Stool for C. difficile as the patient is on antibiotics. Clear liquid diet and monitor. 3. Mild elevation of her total bilirubin and alkaline phosphatase. We will get a gallbladder ultrasound. 4. Elevated INR. Holding the Coumadin. 5. History of atrial fibrillation on Coreg, amiodarone, and on Coumadin. Holding Coumadin because of INR 7.3. 6. Thrombocytopenia, usually is around 100,000, but lately dropping down into 40,000s followed with Heme/Onc. Ultrasound of the abdomen was done which showed some liver cirrhosis and gallstones and there are plans for high dose Decadron 40 mg daily for 4 days, if platelet count drops less than 30 and possible bone marrow biopsy .Platelet count is stable at 48 . INR supratherapeutic. We will monitor. She says she has some blood when she wiped after bowel movement, possibly from hemorrhoids, but we will closely monitor as hemoglobin is stable. Will reverse the INR if she develops any bleeding complications. 7. Chronic systolic heart failure with EF of 45%, status post ICD on Coreg and torsemide, also on dialysis. 8. History of stroke, on aspirin, Coumadin and statin. 9. Hypertension. Continue home medication of hydralazine, Coreg, diuretics. Monitor the blood pressure. 10. History of chronic constipation. We will hold her stools softeners as the patient currently has diarrhea. 11. Gastroesophageal reflux disease. Continue Pepcid and omeprazole. 12. End-stage renal disease on hemodialysis. 13. Anemia of chronic kidney disease. Hemoglobin stable at 11. 14. Deep venous thrombosis prophylaxis, supratherapeutic INR. 15. Disposition: Closely monitoring in the medical floor. Level 1 full code as per my discussion with the patient. Her son who is in [place] is her power of city attorney. PT and OT prior to discharge. Social Service to help with discharge planning. MTDD
[2019-09-04] MEDS: LORazepam 0.5 MG TAB PO PRN (02:49)
[2019-09-04] MEDS: ACETAMINOPHEN 325 MG TAB PO PRN ×3 (03:26→16:32)
[2019-09-04 06:10] LABS: Basophils # (auto) 0.01 K/uL (0-0.2); Basophils % (auto) 0.3 %; Hematocrit (blood only) 31.1 % (37-47); Hemoglobin 10.5 g/dL (12.0-16.0); Immature Granulocytes # (auto) 0.01 K/uL (0.00-0.02); Immature Granulocytes % (auto) 0.3 %; Lymphocytes # (auto) 0.29 K/uL (1.2-3.4); Lymphocytes % (auto) 8.9 %; Mean Corpuscular Hemoglobin 32.9 pg (25-34); Mean Corpuscular Hgb Conc 33.8 g/dL (32-36); Mean Corpuscular Volume 97.5 fL (80-100); Mean Platelet Volume 12.8 fL (7.4-10.4); Monocytes # (auto) 0.08 K/uL (0.11-0.59); Monocytes % (auto) 2.5 %; Neutrophils # (auto) 2.86 K/uL (1.4-6.5); Nucleated RBC # (auto) 0.02 K/uL (0-0); Nucleated RBC % (auto) 0.5 %; Platelet Count 40 K/uL (130-400); RDW Coefficient of Variation 14.9 % (11.5-14.5); RDW Standard Deviation 53.3 fL (36.4-46.3); Red Blood Count 3.19 M/uL (4.2-5.4); White Blood Count 3.25 K/uL (4.8-10.8)
[2019-09-04 06:18] LABS: BUN Creatinine Ratio 6.3 (10-20); Calcium 8.5 mg/dl (8.5-10.1); Creatinine Clr Calc Pharmacy 12.1 ml/min; Est GFR (African American) 12.9; Est GFR (Non-African American) 11.1; Magnesium 1.9 mg/dl (1.8-2.4); Potassium 3.3 mmol/L (3.5-5.1)
[2019-09-04 06:41] LABS: Estimated Average Glucose 171 mg/dl; Hemoglobin A1C 7.6 % (4.5-5.6)
[2019-09-04 06:46] LABS: Prothrombin Time 87.6 Seconds (9.0-12.0)
[2019-09-04 06:49] LABS: INR 10.1 (0.9-1.1)
[2019-09-04] MEDS ORDERED: PHYTONADIONE 5 MG TAB PO STA (07:23)
[2019-09-04] MEDS: ASPIRIN 81 MG ECTAB PO SCH (07:37)
[2019-09-04] MEDS: AMIODARONE 200 MG TAB PO SCH (07:37)
[2019-09-04] MEDS: LACTOBACILLUS ACIDOPHILUS (FLORANEX) TAB PO SCH ×2 (07:38→13:09)
[2019-09-04] MEDS: CALCIUM ACETATE 667 MG CAP PO SCH ×3 (07:38→16:35)
[2019-09-04] MEDS: TORSEMIDE 20 MG TAB PO SCH (07:38)
[2019-09-04] MEDS: HydrALAZINE TAB 50 MG TAB PO SCH ×2 (07:39→13:09)
[2019-09-04] MEDS: FAMOTIDINE 20 MG TAB PO SCH (07:39)
[2019-09-04] MEDS: carvediloL 25 MG TAB PO SCH (07:40)
[2019-09-04] MEDS: PANTOprazole 40 MG TAB PO SCH (07:40)
[2019-09-04] MEDS: FLUTICASONE PROPIONATE NA SPR 16 GM BTL SCH (07:40)
--- NOTE | 2019-09-04 07:50 | Ultrasound Report ---
ABDOMINAL ULTRASOUND, RIGHT UPPER QUADRANT HISTORY: elevated lft, nausea.. COMPARISON: Abdomen and pelvis CT 10/31/2018. FINDINGS: Pancreas: The pancreas demonstrates a normal echotexture. Liver: Unremarkable. Small amount of perihepatic ascites. Gallbladder: Sludge and stones within the gallbladder. The gallbladder wall is at the upper limits of normal measuring 3 mm. CBD: 6 mm. Right kidney: No hydronephrosis. IMPRESSION: 1. Stones and sludge within the gallbladder. Gallbladder wall is at the upper limits of normal measur ing 3 mm. 2. Normal caliber common bile duct. 3. Small amount of ascites. ACT 112: Negative or not required by law. Electronically signed by: Cristian Renteria M.D. 09/04/2019 7:48 AM
[2019-09-04] MEDS ORDERED: SODIUM CHLORIDE 0.9% 1000ML 1,000 ML IV PRN (08:12)
[2019-09-04 08:34] LABS: Albumin Level 3.4 gm/dl (3.4-5.0); Bilirubin Direct 0.4 mg/dl (0-0.2); Bilirubin,Total 1.1 mg/dl (0.2-1); Total Protein 6.8 gm/dl (6.4-8.2)
[2019-09-04] MEDS: INSULIN ASPART 100 UNITS/ML 3 ML PEN SC SCH ×3 (08:51→17:31)
[2019-09-04] MEDS ORDERED: DOXYCYCLINE HYCLATE 100 MG CAP PO SCH (09:00)
[2019-09-04] MEDS ORDERED: INSULIN GLARGINE SOLOSTAR 100 UNITS/ML 3 ML PEN SQ ONE (09:00)
[2019-09-04 12:16] LABS: Cdiff Antigen Positive; Cdiff Toxin A+B Negative Cdiff Toxin (Negative)
--- NOTE | 2019-09-04 15:11 | Hospitalist Progress Note ---
Date of Service September 04, 2019 Assessment & Plan (1) C. difficile diarrhea: Nausea improved. Still having diarrhea C. difficile testing positive for Tox B gene, negative for toxin Considering that patient has been on different antibiotics for over 7 days for treatment of pneumonia, persistent watery diarrhea is likely related to C. difficile. Will treat with p.o. vancomycin and monitor (2) Cough: Patient has received antibiotics for over 7 days. Chest x-ray reported bibasilar linear densities which are improving and stated to be likely due to atelectasis. No leukocytosis. Patient's cough may be related to bronchitis Will discontinue IV antibiotics and monitor Get procalcitonin (3) Paroxysmal atrial fibrillation: (4) Supratherapeutic INR: Rate controlled on amiodarone and carvedilol Coumadin on hold due to supratherapeutic INR of 10 this morning Got vitamin K p.o. this morning Monitor INR No bleeding at this time (5) Thrombocytopenia: Chronic thrombocytopenia for which patient follows rheumatology Platelet today is 40 Monitor (6) Chronic systolic heart failure: Currently euvolemic On torsemide at home Monitor volume status especially with diarrhea Continue Coreg (7) Automatic implantable cardioverter-defibrillator in situ: (8) History of CVA (cerebrovascular accident): Continue aspirin (9) ESRD (end stage renal disease) on dialysis: Nephrology on board for HD (10) Anemia of renal disease: Hemoglobin stable at 10.5 this morning Monitor DVT prophylaxis Coumadin on hold due to supratherapeutic INR Admission and Anticipated Discharge Date Admission Date: September 03, 2019 Subjective Patient seen and examined. Patient reports occasional cough. Nausea and vomiting has resolved Still having watery diarrhea and mild abdominal pain Physical Exam Constitutional: well developed and + well hydrated; no acute distress Eyes: PERRL, conjunctivae normal, anicteric sclerae ENMT: external ear and nose normal, oropharynx normal Respiratory: normal respiratory effort, lungs clear to auscultation Cardiovascular: Rate/Rhythm: regular rate and regular rhythm S1 S2 Gastrointestinal (Abdomen): normal bowel sounds, soft, nontender, no hepatosplenomegaly Musculoskeletal: no cyanosis or clubbing, extremities motor strength 5/5 Neurologic: PERRL, EOMI, accommodation nl, no face palsy, no dysarthria Psychiatric: A+Ox3, euthymic affect Results & Data ([facility]) Vital Signs (Past 12 Hours) Vital Signs Temp Pulse Resp BP Pulse Ox 09/04/19 07:24 36.5 C 60 18 190/66 H 95 Laboratory Results Abnormal lab results 09/03/19 09/03/19 09/03/19 Range/Units 17:47 17:47 17:47 WBC 4.39 L (4.8-10.8) K/uL RBC 3.43 L (4.2-5.4) M/uL Hgb 11.2 L (12.0-16.0) g/dL Hct 33.9 L (37-47) % RDW Std Deviation 53.8 H (36.4-46.3) fL RDW Coeff of Jacobo 14.9 H (11.5-14.5) % Plt Count 48 L (130-400) K/uL MPV 12.8 H (7.4-10.4) fL Lymph # (Auto) 0.57 L (1.2-3.4) K/uL Hendricks # (Auto) (0.11-0.59) K/uL Absolute Nucleated RBC (0-0) K/uL PT 65.2 H (9.0-12.0) Seconds INR 7.3 H* (0.9-1.1) APTT 55.3 H* (21.0-31.0) Seconds Sodium 134 L (136-145) mmol/L Potassium (3.5-5.1) mmol/L Chloride (98-107) mmol/L BUN 20 H (7-18) mg/dl Creatinine 3.42 H (0.6-1.2) mg/dl BUN/Creatinine Ratio 6.0 L (10-20) Glucose 108 H (70-99) mg/dl POC Glucose (70-99) mg/dl Hemoglobin A1c (4.5-5.6) % Phosphorus 2.2 L (2.5-4.9) mg/dl Total Bilirubin 1.6 H (0.2-1) mg/dl Direct Bilirubin (0-0.2) mg/dl Alkaline Phosphatase 126 H (45-117) U/L Urine Appearance (Clear) Urine Protein (Negative) Urine Nitrite (Negative) Ur Leukocyte Esterase (Negative) Urine WBC (Auto) (0-5) /hpf Urine RBC (Auto) (0-4) /hpf U Epithel Cells (Auto) (0-5) /lpf Ur Renal Epithelial Cell (0-5) /lpf Urine Yeast (None Prsent) Stl C. diff Tox B Gene (Neg) 09/03/19 09/04/19 09/04/19 Range/Units 20:00 01:15 01:24 WBC (4.8-10.8) K/uL RBC (4.2-5.4) M/uL Hgb (12.0-16.0) g/dL Hct (37-47) % RDW Std Deviation (36.4-46.3) fL RDW Coeff of Jacobo (11.5-14.5) % Plt Count (130-400) K/uL MPV (7.4-10.4) fL Lymph # (Auto) (1.2-3.4) K/uL Hendricks # (Auto) (0.11-0.59) K/uL Absolute Nucleated RBC (0-0) K/uL PT (9.0-12.0) Seconds INR (0.9-1.1) APTT (21.0-31.0) Seconds Sodium (136-145) mmol/L Potassium 3.2 L (3.5-5.1) mmol/L Chloride (98-107) mmol/L BUN (7-18) mg/dl Creatinine (0.6-1.2) mg/dl BUN/Creatinine Ratio (10-20) Glucose (70-99) mg/dl POC Glucose 150 H (70-99) mg/dl Hemoglobin A1c (4.5-5.6) % Phosphorus (2.5-4.9) mg/dl Total Bilirubin (0.2-1) mg/dl Direct Bilirubin (0-0.2) mg/dl Alkaline Phosphatase (45-117) U/L Urine Appearance Turbid A (Clear) Urine Protein 3+ H (Negative) Urine Nitrite Positive A (Negative) Ur Leukocyte Esterase 2+ H (Negative) Urine WBC (Auto) >30 H (0-5) /hpf Urine RBC (Auto) 5-10 H (0-4) /hpf U Epithel Cells (Auto) >30 H (0-5) /lpf Ur Renal Epithelial Cell 10-20 H (0-5) /lpf Urine Yeast Budding A (None Prsent) Stl C. diff Tox B Gene (Neg) 09/04/19 09/04/19 09/04/19 Range/Units 05:11 05:11 05:11 WBC 3.25 L (4.8-10.8) K/uL RBC 3.19 L (4.2-5.4) M/uL Hgb 10.5 L (12.0-16.0) g/dL Hct 31.1 L (37-47) % RDW Std Deviation 53.3 H (36.4-46.3) fL RDW Coeff of Jacobo 14.9 H (11.5-14.5) % Plt Count 40 L (130-400) K/uL MPV 12.8 H (7.4-10.4) fL Lymph # (Auto) 0.29 L (1.2-3.4) K/uL Hendricks # (Auto) 0.08 L (0.11-0.59) K/uL Absolute Nucleated RBC 0.02 H (0-0) K/uL PT 87.6 H (9.0-12.0) Seconds INR 10.1 H* (0.9-1.1) APTT (21.0-31.0) Seconds Sodium 134 L (136-145) mmol/L Potassium 3.3 L (3.5-5.1) mmol/L Chloride 97 L (98-107) mmol/L BUN 24 H (7-18) mg/dl Creatinine 3.77 H D (0.6-1.2) mg/dl BUN/Creatinine Ratio 6.3 L (10-20) Glucose 175 H (70-99) mg/dl POC Glucose (70-99) mg/dl Hemoglobin A1c (4.5-5.6) % Phosphorus (2.5-4.9) mg/dl Total Bilirubin (0.2-1) mg/dl Direct Bilirubin (0-0.2) mg/dl Alkaline Phosphatase (45-117) U/L Urine Appearance (Clear) Urine Protein (Negative) Urine Nitrite (Negative) Ur Leukocyte Esterase (Negative) Urine WBC (Auto) (0-5) /hpf Urine RBC (Auto) (0-4) /hpf U Epithel Cells (Auto) (0-5) /lpf Ur Renal Epithelial Cell (0-5) /lpf Urine Yeast (None Prsent) Stl C. diff Tox B Gene (Neg) 09/04/19 09/04/19 09/04/19 Range/Units 05:11 07:13 07:38 WBC (4.8-10.8) K/uL RBC (4.2-5.4) M/uL Hgb (12.0-16.0) g/dL Hct (37-47) % RDW Std Deviation (36.4-46.3) fL RDW Coeff of Jacobo (11.5-14.5) % Plt Count (130-400) K/uL MPV (7.4-10.4) fL Lymph # (Auto) (1.2-3.4) K/uL Hendricks # (Auto) (0.11-0.59) K/uL Absolute Nucleated RBC (0-0) K/uL PT (9.0-12.0) Seconds INR (0.9-1.1) APTT (21.0-31.0) Seconds Sodium (136-145) mmol/L Potassium (3.5-5.1) mmol/L Chloride (98-107) mmol/L BUN (7-18) mg/dl Creatinine (0.6-1.2) mg/dl BUN/Creatinine Ratio (10-20) Glucose (70-99) mg/dl POC Glucose 166 H (70-99) mg/dl Hemoglobin A1c 7.6 H (4.5-5.6) % Phosphorus (2.5-4.9) mg/dl Total Bilirubin 1.1 H (0.2-1) mg/dl Direct Bilirubin 0.4 H (0-0.2) mg/dl Alkaline Phosphatase 121 H (45-117) U/L Urine Appearance (Clear) Urine Protein (Negative) Urine Nitrite (Negative) Ur Leukocyte Esterase (Negative) Urine WBC (Auto) (0-5) /hpf Urine RBC (Auto) (0-4) /hpf U Epithel Cells (Auto) (0-5) /lpf Ur Renal Epithelial Cell (0-5) /lpf Urine Yeast (None Prsent) Stl C. diff Tox B Gene (Neg) 09/04/19 09/04/19 09/04/19 Range/Units 10:15 11:24 16:47 WBC (4.8-10.8) K/uL RBC (4.2-5.4) M/uL Hgb (12.0-16.0) g/dL Hct (37-47) % RDW Std Deviation (36.4-46.3) fL RDW Coeff of Jacobo (11.5-14.5) % Plt Count (130-400) K/uL MPV (7.4-10.4) fL Lymph # (Auto) (1.2-3.4) K/uL Hendricks # (Auto) (0.11-0.59) K/uL Absolute Nucleated RBC (0-0) K/uL PT (9.0-12.0) Seconds INR (0.9-1.1) APTT (21.0-31.0) Seconds Sodium (136-145) mmol/L Potassium (3.5-5.1) mmol/L Chloride (98-107) mmol/L BUN (7-18) mg/dl Creatinine (0.6-1.2) mg/dl BUN/Creatinine Ratio (10-20) Glucose (70-99) mg/dl POC Glucose 211 H 242 H (70-99) mg/dl Hemoglobin A1c (4.5-5.6) % Phosphorus (2.5-4.9) mg/dl Total Bilirubin (0.2-1) mg/dl Direct Bilirubin (0-0.2) mg/dl Alkaline Phosphatase (45-117) U/L Urine Appearance (Clear) Urine Protein (Negative) Urine Nitrite (Negative) Ur Leukocyte Esterase (Negative) Urine WBC (Auto) (0-5) /hpf Urine RBC (Auto) (0-4) /hpf U Epithel Cells (Auto) (0-5) /lpf Ur Renal Epithelial Cell (0-5) /lpf Urine Yeast (None Prsent) Stl C. diff Tox B Gene Positive Cdiff Gene H (Neg)
[2019-09-04] MEDS: RASPBERRY SYRUP 5 ML UDP PO SCH ×2 (16:33→17:33)
[2019-09-04] MEDS: VANCOMYCIN HCL 125 MG/2.5ML SOLN PO SCH ×2 (16:33→17:33)
--- NOTE | 2019-09-04 16:40 | Nephrology Consultation ---
Date of Consultation September 04, 2019 Assessment & Plan (1) End-stage renal disease (ESRD): Patient with ESRD on HD TTS. Last HD was . Electrolytes are stable and no signs of volume overload. Will dialyse her today for 3.5hrs target UF 2 litre. (2) HTN (hypertension): BP is above target. Continue current regimen. Anticipate improvement after HD. (3) Anemia of renal disease: Hb is 10.5 at target. No need for MARCELLA with HD (4) Bronchopneumonia: Continue Rocephin per primary team. Renally dose antibiotics for GFR of 25ml/min while on HD History of Present Illness Reason for Consultation: ESRD and pneumonia Requesting Physician: Melissa Boyer MD Attending Physician: Melissa Boyer MD History of Present Illness This is 74yoF with PMH of HTN, type 2 DM, CHF, depression, A.fib in coumadin and ESRD on HD TTS who was admitted on 09/03/19 with cough and weakness. Her last HD was . SHe has been coughing for several days. She was treated with Augmentin without improvement. She has a left UA AVF. In the ED she was hypertensive with SBP in the 190's. CXR was unremarkable. She is getting rocephin. She says her cough is better. No SOB or vomiting today. Allergies Allergy/AdvReac Type Severity Reaction Status Date / Time adhesive Allergy Unknown RXN TO Verified 09/03/19 19:28 ADHESIVE ON NITRO PATCH strawberry Allergy Unknown EDEMA OF Verified 09/03/19 19:29 FACE /LIPS /TONGUE DESIREE Inhibitors AdvReac Mild COUGH Verified 09/03/19 19:28 diphenhydramine AdvReac Mild VERY WEAK, Verified 09/03/19 19:28 CHF lisinopril AdvReac Mild COUGH Verified 09/03/19 19:28 nitroglycerin AdvReac Mild HEADACHE/NA Verified 09/03/19 19:28 USEA Sulfa (Sulfonamide AdvReac Mild "KNOCKS ME Verified 09/03/19 19:28 Antibiotics) OUT" amlodipine AdvReac Unknown RETAIN Verified 09/03/19 19:28 FLUID Home Medications Home Medications Medication Instructions Recorded Confirmed Type Lantus Solostar U-100 Insulin 16 units SUBCUT PM 10/30/18 09/03/19 History amiodarone 200 mg PO QAM 10/30/18 09/03/19 History atorvastatin 40 mg PO HS 10/30/18 09/03/19 History calcium acetate(phosphat bind) 1 cap PO TIDM 10/30/18 09/03/19 History carvedilol 50 mg PO BID 10/30/18 09/03/19 History insulin aspart U-100 [Novolog 0 unit SUBCUT UD 10/30/18 09/03/19 History Flexpen U-100 Insulin] torsemide 20 mg PO QAM 10/30/18 09/03/19 History hydralazine 50 mg PO TID 04/27/19 09/03/19 History lorazepam [Ativan] 0.5 mg PO TID PRN 04/27/19 09/03/19 History warfarin 4 mg PO DAILY 04/27/19 09/03/19 History Lactobacillus rhamnosus GG 1 cap PO TID 09/03/19 09/03/19 History [Culturelle] acetaminophen 1,000 mg PO Q6H PRN 09/03/19 09/03/19 History albuterol sulfate 2 puff INHALATION Q4 PRN 09/03/19 09/03/19 History amoxicillin-pot clavulanate 3.125 ml/kg PO DAILY 09/03/19 09/03/19 History aspirin [Aspirin Low Dose] 81 mg PO DAILY 09/03/19 09/03/19 History docusate sodium 100 mg PO DAILY 09/03/19 09/03/19 History doxycycline hyclate 100 mg PO BID 09/03/19 09/03/19 History famotidine [Pepcid] 20 mg PO DAILY 09/03/19 09/03/19 History fluticasone propionate [Flonase 2 spray INTRANASAL DAILY 09/03/19 09/03/19 History Allergy Relief] lidocaine-prilocaine 1 applic TOPICAL UD 09/03/19 09/03/19 History magnesium citrate 120 ml PO DAILY PRN 09/03/19 09/03/19 History omeprazole 40 mg PO DAILY 09/03/19 09/03/19 History ondansetron HCl [Zofran] 4 mg PO Q8H PRN 09/03/19 09/03/19 History polyethylene glycol 3350 [Miralax] 17 g PO DAILY PRN 09/03/19 09/03/19 History Patient History Medical History Anemia of renal disease (Chronic) Anxiety (Chronic) Biventricular ICD (implantable cardioverter-defibrillator) in place (Chronic) Degenerative cervical disc (Chronic) Depression (Chronic) Diabetes mellitus, type II (Chronic) Endocarditis (Resolved) Pacemaker wire vegetation ESRD (end stage renal disease) on dialysis (Chronic) GERD (gastroesophageal reflux disease) (Chronic) H/O TIA (transient ischemic attack) and stroke (Chronic) Hip fracture, left (Resolved) HTN (hypertension) (Chronic) Hx of supraventricular tachycardia (Chronic) Idiopathic cardiomyopathy (Chronic) Left bundle branch block (Chronic 11/07/11) longterm (current) use of 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 (Chronic) Paroxysmal atrial fibrillation (Chronic) Pericardial effusion (Resolved) Proteinuria (Chronic) PVD (peripheral vascular disease) (Chronic) Secondary hyperparathyroidism (Chronic) Slow transit constipation (Chronic) Streptococcus bovis infection (Resolved) Bacteremia with pacemaker lead vegetation Surgical History H/O dilation and curettage (Chronic) History of appendectomy (Chronic) History of cataract surgery (Chronic) History of hysterectomy (Chronic) History of left hip hemiarthroplasty (Chronic) S/P pericardial surgery (Chronic) Pericardial window for pericardial effusion Family History Brother Diabetes Mother Diabetes Coronary heart disease Sister Diabetes Social History Preferred Language: Chinese Communication Ability: Effective Fitness Centre Manager Required: No Beliefs That Will Affect Care: None Current Living Situation: Family Current Living Situation Comment: Cousin lives with her-Guillaume Feels Safe at Home: Yes Safety Concerns: Feels Safe At This Time Smoking Status: Never smoker Hx Alcohol Use: No Hx Substance Use: No Review of Systems Review of Systems: All systems reviewed & are unremarkable except as noted in HPI & below Physical Exam Physical Exam: General exam: Appears comfortable, no acute distress HEENT: Pupils are equal and reactive to light Neck: No JVD, neck is supple trachea is midline Respiratory system: Reduced breath sounds bilaterally. Gastrointestinal: Abdomen is soft, non distended, non tender, bowel sounds are present CVS: Regular rate and rhythm. No murmurs, rubs or gallops Musculoskeletal: No joint or muscle tenderness Extremities: Non tender, no edema, peripheral pulses are present Neuro: Oriented, no tremors, no focal neurological deficits Skin: No rashes Access: Left UA AVF with good bruit Results & Data Vital Signs (Past 12 Hours) Vital Signs Temp Pulse Resp BP Pulse Ox 09/04/19 07:24 36.5 C 60 18 190/66 H 95 Laboratory Results 09/04/19 05:11 09/03/19 09/03/19 09/04/19 17:47 17:47 05:11 WBC 4.39 L 3.25 L RBC 3.43 L 3.19 L MCV 98.8 97.5 MCH 32.7 32.9 MCHC 33.0 33.8 RDW Std Deviation 53.8 H 53.3 H RDW Coeff of Jacobo 14.9 H 14.9 H Plt Count 48 L 40 L MPV 12.8 H 12.8 H Phosphorus 2.2 L Albumin 3.6 09/04/19 07:13 WBC RBC MCV MCH MCHC RDW Std Deviation RDW Coeff of Jacobo Plt Count MPV Phosphorus Albumin 3.4 (1) HTN (hypertension) Hypertension type: unspecified Qualified Code(s): I10 - Essential (primary) hypertension
[2019-09-04] MEDS: HEPARIN SOD (PORCINE) 1000 UNIT/ML 10 ML VIAL IV ONE ×2 (17:27→20:02)
--- NOTE | 2019-09-04 18:06 | Electrocardiogram Report ---
Test Reason : Blood Pressure : / mmHG Vent. Rate : 063 BPM Atrial Rate : 063 BPM P-R Int : 168 ms QRS Dur : 184 ms QT Int : 558 ms P-R-T Axes : 000 265 103 degrees QTc Int : 571 ms AV dual-paced rhythm Biventricular pacemaker detected Abnormal ECG When compared with ECG of 27-APR-2019 06:59, No significant change was found Confirmed by Dariel Marrufo ([id number] on 09/04/2019 6:06:14 PM Referred By: REFERRED SELF Confirmed By:Roderick Marrufo
[2019-09-04] MEDS ORDERED: POTASSIUM CHLORIDE PWD 20 MEQ PACK PO STA (18:23)
[2019-09-04] MEDS ORDERED: cefTRIAXone SODIUM 1,000 MG in DEXTROSE 5% 50 ML IV SCH (20:00)
[2019-09-05] MEDS: HydrALAZINE TAB 50 MG TAB PO SCH ×4 (00:04→21:07)
[2019-09-05] MEDS: LACTOBACILLUS ACIDOPHILUS (FLORANEX) TAB PO SCH ×4 (00:04→21:08)
[2019-09-05] MEDS: INSULIN GLARGINE SOLOSTAR 100 UNITS/ML 3 ML PEN SQ SCH ×2 (00:05→21:08)
[2019-09-05] MEDS: carvediloL 25 MG TAB PO SCH ×3 (00:05→21:04)
[2019-09-05] MEDS: ATORVASTATIN 40 MG TAB PO SCH ×2 (00:05→21:08)
[2019-09-05] MEDS: INSULIN ASPART 100 UNITS/ML 3 ML PEN SC SCH ×5 (00:06→21:10)
[2019-09-05] MEDS: RASPBERRY SYRUP 5 ML UDP PO SCH ×5 (00:07→23:27)
[2019-09-05] MEDS: VANCOMYCIN HCL 125 MG/2.5ML SOLN PO SCH ×5 (00:07→23:27)
[2019-09-05] MEDS: LORazepam 0.5 MG TAB PO PRN ×2 (00:29→21:03)
[2019-09-05] MEDS: BENZONATATE 100 MG CAPSULE PO PRN ×3 (00:29→21:03)
[2019-09-05] MEDS: LEVALBUTEROL 1.25MG/0.5ML NEB INH PRN ×3 (00:31→19:12)
[2019-09-05] MEDS: IPRATROPIUM BROMIDE NEB SOLN 0.02% 2.5 ML VIAL INH PRN ×3 (00:31→19:12)
[2019-09-05] MEDS ORDERED: COUGH DROP (SUGAR FREE) LOZ 24 LOZ/1 BOX BUCCAL ONE (00:40)
[2019-09-05 06:09] LABS: Hematocrit (blood only) 30.5 % (37-47); Hemoglobin 10.1 g/dL (12.0-16.0); Mean Corpuscular Hemoglobin 32.8 pg (25-34); Mean Corpuscular Hgb Conc 33.1 g/dL (32-36); RDW Coefficient of Variation 15.1 % (11.5-14.5); RDW Standard Deviation 54.1 fL (36.4-46.3); Red Blood Count 3.08 M/uL (4.2-5.4); White Blood Count 5.79 K/uL (4.8-10.8)
[2019-09-05 06:12] LABS: Mean Platelet Volume 11.7 fL (7.4-10.4); Platelet Count 49 K/uL (130-400)
[2019-09-05 06:21] LABS: INR 1.9 (0.9-1.1); Prothrombin Time 18.8 Seconds (9.0-12.0)
[2019-09-05 07:11] LABS: Calcium 8.8 mg/dl (8.5-10.1); Creatinine Clr Calc Pharmacy 14.8 ml/min; Est GFR (African American) 16.4; Est GFR (Non-African American) 14.2; Magnesium 1.8 mg/dl (1.8-2.4); Phosphorus 2.3 mg/dl (2.5-4.9); Potassium 3.7 mmol/L (3.5-5.1)
[2019-09-05] MEDS: PANTOprazole 40 MG TAB PO SCH (08:01)
[2019-09-05] MEDS: FAMOTIDINE 20 MG TAB PO SCH (08:01)
[2019-09-05] MEDS: ASPIRIN 81 MG ECTAB PO SCH (08:01)
[2019-09-05] MEDS: CALCIUM ACETATE 667 MG CAP PO SCH ×3 (08:01→16:37)
[2019-09-05] MEDS: AMIODARONE 200 MG TAB PO SCH (08:01)
[2019-09-05] MEDS: FLUTICASONE PROPIONATE NA SPR 16 GM BTL SCH (08:02)
[2019-09-05] MEDS: TORSEMIDE 20 MG TAB PO SCH (08:02)
--- NOTE | 2019-09-05 12:52 | Nephrology Progress Note ---
Date of Service September 05, 2019 Assessment & Plan (1) End-stage renal disease (ESRD): Patient with ESRD on HD TTS. Electrolytes are stable and no signs of volume overload. She had HD yesterday. Next HD Friday (2) HTN (hypertension): BP is above target but improving. Continue current regimen. (3) Anemia of renal disease: Hb is 10.5 at target. No need for MARCELLA with HD (4) Bronchopneumonia: Continue Rocephin per primary team. Renally dose antibiotics for GFR of 25ml/min while on HD Admission and Anticipated Discharge Date Admission Date: September 03, 2019 Subjective She had HD yesterday. Feels better. still cough but no SOB Review of Systems Review of Systems: All systems reviewed & are unremarkable except as noted in HPI & below Physical Exam Physical Exam: General exam: Appears comfortable, no acute distress HEENT: Pupils are equal and reactive to light Neck: No JVD, neck is supple trachea is midline Respiratory system: Clear breath sounds bilaterally. Gastrointestinal: Abdomen is soft, non distended, non tender, bowel sounds are present CVS: Regular rate and rhythm. No murmurs, rubs or gallops Musculoskeletal: No joint or muscle tenderness Extremities: Non tender, no edema, peripheral pulses are present Neuro: Oriented, no tremors, no focal neurological deficits Skin: No rashes Access: AVF good bruit Results & Data ([facility]) Vital Signs (Past 12 Hours) Vital Signs Temp Pulse Resp BP Pulse Ox 09/05/19 07:23 36.5 C 62 18 146/71 H 100 09/05/19 06:13 68 20 97 Laboratory Results 09/05/19 05:41 09/05/19 09/05/19 05:41 05:41 WBC 5.79 RBC 3.08 L MCV 99.0 MCH 32.8 MCHC 33.1 RDW Std Deviation 54.1 H RDW Coeff of Jacobo 15.1 H Plt Count 49 L MPV 11.7 H Phosphorus 2.3 L (1) HTN (hypertension) Hypertension type: unspecified Qualified Code(s): I10 - Essential (primary) hypertension
--- NOTE | 2019-09-05 15:52 | Hospitalist Progress Note ---
Date of Service September 05, 2019 Assessment & Plan (1) C. difficile diarrhea: Still having diarrhea. Reported 2 since morning C. difficile testing positive for Tox B gene, negative for toxin Considering that patient has been on different antibiotics for over 7 days for treatment of pneumonia, persistent watery diarrhea is likely related to C. difficile. Will continue po vancomycin Monitor volume status (2) Cough: Patient has received antibiotics for over 7 days. Chest x-ray reported bibasilar linear densities which are improving and stated to be likely due to atelectasis. No leukocytosis. Patient's cough may be related to bronchitis Antibiotics discontinued yesterday Procal was 0.3 Supportive care (3) Paroxysmal atrial fibrillation: (4) Supratherapeutic INR: Rate controlled on amiodarone and carvedilol Coumadin on hold due to supratherapeutic INR of 10 yesterday Got vitamin K p.o. yesterday. INR today is 1.9 Resume po warfarin 4mg Monitor INR (5) Thrombocytopenia: Chronic thrombocytopenia for which patient follows rheumatology Platelet today is 49 Monitor (6) Chronic systolic heart failure: Currently euvolemic On torsemide at home Monitor volume status especially with diarrhea Continue Coreg (7) Automatic implantable cardioverter-defibrillator in situ: (8) History of CVA (cerebrovascular accident): Continue aspirin (9) ESRD (end stage renal disease) on dialysis: Nephrology on board for HD Had HD yesterday. Stable (10) Anemia of renal disease: Hemoglobin stable at 10.1 this morning Monitor DVT prophylaxis Coumadin Admission and Anticipated Discharge Date Admission Date: September 03, 2019 Subjective Patient reports mild improvement in cough. Still reports some abdominal discomfort. Has had 2 diarrhea since this morning. Physical Exam Constitutional: + well hydrated; no acute distress and not ill appearing Eyes: PERRL, conjunctivae normal, anicteric sclerae Respiratory: normal respiratory effort, lungs clear to auscultation Cardiovascular: RRR, no murmur, no edema Gastrointestinal (Abdomen): normal bowel sounds, soft, nontender, no hepatosplenomegaly Neurologic: PERRL, EOMI, accommodation nl, no face palsy, no dysarthria Psychiatric: A+Ox3, euthymic affect Results & Data ([facility]) Vital Signs (Past 12 Hours) Vital Signs Temp Pulse Pulse Resp BP Pulse Ox 09/05/19 15:12 36.7 C 60 60 18 132/68 94 09/05/19 07:23 36.5 C 62 18 146/71 H 100 09/05/19 06:13 68 20 97 Laboratory Results Abnormal lab results 09/04/19 09/04/19 09/05/19 Range/Units 16:47 23:51 05:41 RBC (4.2-5.4) M/uL Hgb (12.0-16.0) g/dL Hct (37-47) % RDW Std Deviation (36.4-46.3) fL RDW Coeff of Jacobo (11.5-14.5) % Plt Count (130-400) K/uL MPV (7.4-10.4) fL PT 18.8 H (9.0-12.0) Seconds INR 1.9 H (0.9-1.1) Sodium (136-145) mmol/L Chloride (98-107) mmol/L BUN (7-18) mg/dl Creatinine (0.6-1.2) mg/dl POC Glucose 242 H 191 H (70-99) mg/dl Fasting Glucose (70-99) mg/dl Phosphorus (2.5-4.9) mg/dl 09/05/19 09/05/19 09/05/19 Range/Units 05:41 05:41 07:55 RBC 3.08 L (4.2-5.4) M/uL Hgb 10.1 L (12.0-16.0) g/dL Hct 30.5 L (37-47) % RDW Std Deviation 54.1 H (36.4-46.3) fL RDW Coeff of Jacobo 15.1 H (11.5-14.5) % Plt Count 49 L (130-400) K/uL MPV 11.7 H (7.4-10.4) fL PT (9.0-12.0) Seconds INR (0.9-1.1) Sodium 131 L (136-145) mmol/L Chloride 97 L (98-107) mmol/L BUN 21 H (7-18) mg/dl Creatinine 3.09 H D (0.6-1.2) mg/dl POC Glucose 185 H (70-99) mg/dl Fasting Glucose 182 H (70-99) mg/dl Phosphorus 2.3 L (2.5-4.9) mg/dl 09/05/19 Range/Units 11:40 RBC (4.2-5.4) M/uL Hgb (12.0-16.0) g/dL Hct (37-47) % RDW Std Deviation (36.4-46.3) fL RDW Coeff of Jacobo (11.5-14.5) % Plt Count (130-400) K/uL MPV (7.4-10.4) fL PT (9.0-12.0) Seconds INR (0.9-1.1) Sodium (136-145) mmol/L Chloride (98-107) mmol/L BUN (7-18) mg/dl Creatinine (0.6-1.2) mg/dl POC Glucose 126 H (70-99) mg/dl Fasting Glucose (70-99) mg/dl Phosphorus (2.5-4.9) mg/dl
[2019-09-05] MEDS: WARFARIN SOD 4 MG TAB PO SCH (16:36)
[2019-09-05] MEDS: ONDANSETRON INJ 2 MG/ML 2 ML VIAL IV PRN (22:39)
[2019-09-06] MEDS: BENZONATATE 100 MG CAPSULE PO PRN ×2 (06:15→21:15)
[2019-09-06] MEDS: ACETAMINOPHEN 325 MG TAB PO PRN ×2 (06:15→10:47)
[2019-09-06] MEDS: VANCOMYCIN HCL 125 MG/2.5ML SOLN PO SCH ×4 (06:45→23:44)
[2019-09-06] MEDS: RASPBERRY SYRUP 5 ML UDP PO SCH ×4 (06:45→23:44)
[2019-09-06 07:49] LABS: INR 1.5 (0.9-1.1); Prothrombin Time 15.1 Seconds (9.0-12.0)
[2019-09-06 08:02] LABS: Hematocrit (blood only) 31.2 % (37-47); Hemoglobin 10.2 g/dL (12.0-16.0); Mean Corpuscular Hemoglobin 32.9 pg (25-34); Mean Corpuscular Hgb Conc 32.7 g/dL (32-36); Mean Corpuscular Volume 100.6 fL (80-100); Mean Platelet Volume 12.6 fL (7.4-10.4); Platelet Count 47 K/uL (130-400); RDW Coefficient of Variation 15.2 % (11.5-14.5); RDW Standard Deviation 55.2 fL (36.4-46.3); White Blood Count 6.47 K/uL (4.8-10.8)
[2019-09-06 08:04] LABS: BUN Creatinine Ratio 7.6 (10-20); Calcium 8.7 mg/dl (8.5-10.1); Creatinine Clr Calc Pharmacy 10.7 ml/min; Est GFR (African American) 11.1; Est GFR (Non-African American) 9.6; Potassium 3.9 mmol/L (3.5-5.1)
[2019-09-06] MEDS: CALCIUM ACETATE 667 MG CAP PO SCH ×3 (08:33→16:09)
[2019-09-06] MEDS: HydrALAZINE TAB 50 MG TAB PO SCH ×3 (08:34→21:07)
[2019-09-06] MEDS: TORSEMIDE 20 MG TAB PO SCH (08:35)
[2019-09-06] MEDS: LACTOBACILLUS ACIDOPHILUS (FLORANEX) TAB PO SCH ×3 (08:35→21:07)
[2019-09-06] MEDS: FLUTICASONE PROPIONATE NA SPR 16 GM BTL SCH (08:35)
[2019-09-06] MEDS: FAMOTIDINE 20 MG TAB PO SCH (08:35)
[2019-09-06] MEDS: PANTOprazole 40 MG TAB PO SCH (08:35)
[2019-09-06] MEDS: ASPIRIN 81 MG ECTAB PO SCH (08:35)
[2019-09-06] MEDS: AMIODARONE 200 MG TAB PO SCH (08:36)
[2019-09-06] MEDS: INSULIN ASPART 100 UNITS/ML 3 ML PEN SC SCH ×4 (08:36→21:08)
[2019-09-06] MEDS: carvediloL 25 MG TAB PO SCH ×2 (08:36→21:08)
[2019-09-06] MEDS: ONDANSETRON INJ 2 MG/ML 2 ML VIAL IV PRN (10:47)
[2019-09-06] MEDS ORDERED: PHARMACY GLYCEMIC MGMT CONSULT PRN (14:03)
[2019-09-06] MEDS ORDERED: GLUCOSE 10 TABS/TUBE PO PRN (14:15)
[2019-09-06] MEDS ORDERED: GLUCOSE 40% GEL 15 GM TUBE PO PRN (14:15)
[2019-09-06] MEDS ORDERED: DEXTROSE 50% 50 ML SYRINGE IV PRN (14:15)
[2019-09-06] MEDS ORDERED: CARBOHYDRATES FOR HYPOGLYCEMIA PO PRN (14:15)
[2019-09-06] MEDS ORDERED: GLUCAGON FOR INJ 1 MG VIAL IM PRN (14:15)
--- NOTE | 2019-09-06 14:16 | Hospitalist Progress Note ---
Date of Service September 06, 2019 Assessment & Plan (1) C. difficile diarrhea: Likely C. difficile enterocolitis C. difficile testing positive for Tox B gene, negative for toxin Considering that patient has been on different antibiotics for over 7 days for treatment of pneumonia, persistent watery diarrhea is likely related to C. difficile. Will continue po vancomycin Last bowel movement was yesterday [3 times] (2) Cough: Patient has received antibiotics for over 7 days. Chest x-ray reported bibasilar linear densities which are improving and stated to be likely due to atelectasis. No leukocytosis. Procalcitonin is 0.3 Patient's cough may be related to bronchitis Antibiotics had been discontinued Continue Tessalon which patient reports helps a lot. Continue nebs as needed and wheezing supportive care (3) Paroxysmal atrial fibrillation: (4) Supratherapeutic INR: Rate controlled on amiodarone and carvedilol Coumadin on hold due to supratherapeutic INR of 10 yesterday Got vitamin K p.o. on admission and INR went down to 1.9 P.o. warfarin was resumed. INR today is 1.5 (5) Thrombocytopenia: Chronic thrombocytopenia for which patient follows rheumatology Platelet today is 47 Monitor (6) Chronic systolic heart failure: Currently euvolemic On torsemide at home Monitor volume status especially with diarrhea Continue Coreg (7) Automatic implantable cardioverter-defibrillator in situ: (8) History of CVA (cerebrovascular accident): Continue aspirin (9) ESRD (end stage renal disease) on dialysis: Nephrology on board for HD Last HD was on Friday Stable (10) Anemia of renal disease: Hemoglobin stable at 10.2 this morning Monitor DVT prophylaxis Coumadin Admission and Anticipated Discharge Date Admission Date: September 03, 2019 Subjective Patient seen and examined. Patient reports central abdominal pain usually after eating. Denies any nausea or vomiting. Had 3 watery diarrheal episode yesterday. Has not had any since this morning Denies any fevers, chills Still reports cough which has not worsened. Reports that shortness of breath that comes with cough is resolved Denies any chest pain Physical Exam Constitutional: + well hydrated; no acute distress Eyes: PERRL, conjunctivae normal, anicteric sclerae Respiratory: normal respiratory effort, lungs clear to auscultation Auscultation: no rales, no rhonchi and no wheezes Cardiovascular: RRR, no murmur, no edema Gastrointestinal (Abdomen): normal bowel sounds, soft, nontender, no hepatosplenomegaly Neurologic: PERRL, EOMI, accommodation nl, no face palsy, no dysarthria Psychiatric: A+Ox3, euthymic affect Results & Data ([facility]) Vital Signs (Past 12 Hours) Vital Signs Temp Pulse Pulse Resp BP Pulse Ox 09/06/19 08:30 68 09/06/19 07:29 36.3 C L 48 L 18 127/61 95 Laboratory Results Abnormal lab results 09/05/19 09/05/19 09/06/19 Range/Units 16:47 20:19 06:49 RBC (4.2-5.4) M/uL Hgb (12.0-16.0) g/dL Hct (37-47) % MCV (80-100) fL RDW Std Deviation (36.4-46.3) fL RDW Coeff of Jcaobo (11.5-14.5) % Plt Count (130-400) K/uL MPV (7.4-10.4) fL PT 15.1 H (9.0-12.0) Seconds INR 1.5 H (0.9-1.1) Sodium (136-145) mmol/L Chloride (98-107) mmol/L BUN (7-18) mg/dl Creatinine (0.6-1.2) mg/dl BUN/Creatinine Ratio (10-20) Glucose (70-99) mg/dl POC Glucose 165 H 206 H (70-99) mg/dl Phosphorus (2.5-4.9) mg/dl 09/06/19 09/06/19 09/06/19 Range/Units 06:49 06:49 06:49 RBC 3.10 L (4.2-5.4) M/uL Hgb 10.2 L (12.0-16.0) g/dL Hct 31.2 L (37-47) % MCV 100.6 H (80-100) fL RDW Std Deviation 55.2 H (36.4-46.3) fL RDW Coeff of Jacobo 15.2 H (11.5-14.5) % Plt Count 47 L (130-400) K/uL MPV 12.6 H (7.4-10.4) fL PT (9.0-12.0) Seconds INR (0.9-1.1) Sodium 131 L (136-145) mmol/L Chloride 96 L (98-107) mmol/L BUN 33 H D (7-18) mg/dl Creatinine 4.27 H D (0.6-1.2) mg/dl BUN/Creatinine Ratio 7.6 L (10-20) Glucose 179 H (70-99) mg/dl POC Glucose (70-99) mg/dl Phosphorus 2.3 L (2.5-4.9) mg/dl 09/06/19 09/06/19 Range/Units 07:48 11:36 RBC (4.2-5.4) M/uL Hgb (12.0-16.0) g/dL Hct (37-47) % MCV (80-100) fL RDW Std Deviation (36.4-46.3) fL RDW Coeff of Jacobo (11.5-14.5) % Plt Count (130-400) K/uL MPV (7.4-10.4) fL PT (9.0-12.0) Seconds INR (0.9-1.1) Sodium (136-145) mmol/L Chloride (98-107) mmol/L BUN (7-18) mg/dl Creatinine (0.6-1.2) mg/dl BUN/Creatinine Ratio (10-20) Glucose (70-99) mg/dl POC Glucose 209 H 210 H (70-99) mg/dl Phosphorus (2.5-4.9) mg/dl
[2019-09-06 14:34] LABS: Phosphorus 2.3 mg/dl (2.5-4.9)
--- NOTE | 2019-09-06 14:52 | XRay Report ---
XR chest 1V portable HISTORY: 74 years-old Female Cough. Reeval acute cough COMPARISON: Chest radiograph 09/03/2019 TECHNIQUE: Portable AP view of the chest FINDINGS: Moderate cardiomegaly. Unchanged left subclavian pacer/AICD. Calcified plaque of the thoracic aortic arch. Mild chronic interstitial coarsening with unchanged linear bibasilar subsegmental densities. No pneumothorax, pleural effusion, overt pulmonary edema or new airspace consolidation. Degenerative ch anges of the shoulders and spine. IMPRESSION: 1. Cardiomegaly without overt pulmonary edema. 2. Unchanged linear bibasilar opacities suggestive of scarring/atelectasis. ACT 112: Negative or not required by law. The above report was generated using voice recognition software. It may contain grammatical, syntax o r spelling errors. Electronically signed by: Elvis Camacho M.D. 09/06/2019 2:51 PM
--- NOTE | 2019-09-06 15:50 | Pharmacy Report ---
Glycemic Control Consultation - Date of Service September 06, 2019 - Scope Scope: Glycemic Pharmacist consulted by Dr Boyer on 09/06 for glycemic control and to write orders per [facility] inpatient glycemic control protocol - Objective Weight: 68.5 kg Accuchecks BSG (last 24hrs): 09/05/19 09/05/19 09/06/19 16:47 20:19 06:49 Glucose 179 H POC Glucose 165 H 206 H 09/06/19 09/06/19 07:48 11:36 Glucose POC Glucose 209 H 210 H Laboratory Data (last 24hrs): 09/06/19 06:49 Potassium 3.9 Carbon Dioxide 29 Anion Gap 6.0 Creatinine 4.27 H D Est Cr Clr Drug Dosing 10.7 HbA1c: Hemoglobin A1c 7.6 % (4.5-5.6) H 09/04/19 05:11 - Recent Pertinent Medications Outpatient Anti-diabetic Regimen: * Lantus 16 units qpm, Novolog SSI * A1c = 7.6 % date The patient is currently receiving: * Basal insulin: Lantus 16 units HS * Correctional Insulin: Novolog Correction per scale ACHS Goal Range: Low 120 mg/dL - High 150 mg/dL Correction Factor: 30 mg/dL/unit * Prandial insulin: Per carb ratio of 1 unit per 10 grams CHO consumed Risk Factors for Insulin Resistance: * Diet: T2DM - Assessment & Plan Assessment & Plan: ASSESSMENT: * 74 year old admitted with weakness. Pharmacy consulted for glycemic management. * Fasting BSGs elevated last few days, 209 mg/dL this morning - therefore will titrate up basal insulin * BSGs throughout the day also elevated - tighten CF/CR PLAN FOR INPATIENT GLYCEMIC CONTROL: * Basal insulin * Lantus 20 units this evening * Bolus insulin * NovoLog per scale ACHS or Q6hrs while NPO * Goal Range: Low 120 mg/dL - High 150 mg/dL * Correction Factor: 25 mg/dL/unit * Nutritional / Prandial insulin per carb ratio of 1 unit per 9 grams CHO consumed * Please note that the plan above was derived based on current level of insulin resistance and hospital stress. These recommendations are appropriate for inpatient admission only. Plan of care upon discharge will need to be reassessed to avoid potential outpatient hypo/hyperglycemia. Thank you.
[2019-09-06] MEDS: WARFARIN SOD 4 MG TAB PO SCH (16:09)
[2019-09-06] MEDS ORDERED: INSULIN GLARGINE SOLOSTAR 100 UNITS/ML 3 ML PEN SQ SCH (21:00)
[2019-09-06] MEDS: ATORVASTATIN 40 MG TAB PO SCH (21:07)
[2019-09-06] MEDS: LORazepam 0.5 MG TAB PO PRN (21:15)
[2019-09-07] MEDS: ACETAMINOPHEN 325 MG TAB PO PRN ×2 (02:08→22:20)
[2019-09-07] MEDS: IPRATROPIUM BROMIDE NEB SOLN 0.02% 2.5 ML VIAL INH PRN (05:00)
[2019-09-07] MEDS: LEVALBUTEROL 1.25MG/0.5ML NEB INH PRN (05:00)
[2019-09-07] MEDS: BENZONATATE 100 MG CAPSULE PO PRN (05:07)
[2019-09-07] MEDS: VANCOMYCIN HCL 125 MG/2.5ML SOLN PO SCH ×4 (05:16→23:48)
[2019-09-07] MEDS: RASPBERRY SYRUP 5 ML UDP PO SCH ×4 (05:16→23:47)
[2019-09-07 06:47] LABS: INR 1.9 (0.9-1.1); Prothrombin Time 18.4 Seconds (9.0-12.0)
[2019-09-07 07:05] LABS: Albumin Level 3.3 gm/dl (3.4-5.0); BUN Creatinine Ratio 8.7 (10-20); Bilirubin,Total 1.2 mg/dl (0.2-1); Calcium 8.6 mg/dl (8.5-10.1); Creatinine Clr Calc Pharmacy 8.9 ml/min; Est GFR (African American) 8.8; Est GFR (Non-African American) 7.6; Globulin 3.3 gm/dl (2.5-4.0); Phosphorus 2.8 mg/dl (2.5-4.9); Potassium 3.9 mmol/L (3.5-5.1); Total Protein 6.6 gm/dl (6.4-8.2)
[2019-09-07 07:13] LABS: Hematocrit (blood only) 30.1 % (37-47); Mean Corpuscular Hemoglobin 32.3 pg (25-34); Mean Corpuscular Hgb Conc 33.2 g/dL (32-36); Mean Corpuscular Volume 97.1 fL (80-100); Mean Platelet Volume 13.1 fL (7.4-10.4); Nucleated RBC # (auto) 0.02 K/uL (0-0); Nucleated RBC % (auto) 0.3 %; Platelet Count 43 K/uL (130-400); Platelet Estimate SIGNIFIC DECREASED (Normal); RDW Coefficient of Variation 14.8 % (11.5-14.5); RDW Standard Deviation 52.5 fL (36.4-46.3); White Blood Count 4.63 K/uL (4.8-10.8)
[2019-09-07] MEDS ORDERED: SODIUM CHLORIDE 0.9% 1000ML 1,000 ML IV PRN (07:57)
[2019-09-07] MEDS ORDERED: EPOETIN ALFA 4,000 UNIT/ML VIAL IV ONE (07:57)
[2019-09-07] MEDS: INSULIN ASPART 100 UNITS/ML 3 ML PEN SC SCH ×4 (09:06→21:04)
[2019-09-07] MEDS: FLUTICASONE PROPIONATE NA SPR 16 GM BTL SCH (09:07)
[2019-09-07] MEDS: LACTOBACILLUS ACIDOPHILUS (FLORANEX) TAB PO SCH ×3 (09:12→21:03)
[2019-09-07] MEDS: ASPIRIN 81 MG ECTAB PO SCH (09:12)
[2019-09-07] MEDS: CALCIUM ACETATE 667 MG CAP PO SCH ×3 (09:12→20:52)
[2019-09-07] MEDS: PANTOprazole 40 MG TAB PO SCH (09:13)
[2019-09-07] MEDS: FAMOTIDINE 20 MG TAB PO SCH (09:13)
--- NOTE | 2019-09-07 12:20 | CT Scan Report ---
CT chest wo con CT DOSE: 265.15 mGy.cm HISTORY: Dyspnea Persistent cough, SOB, better eval basilar opaciti TECHNIQUE: Multiaxial CT images of the chest were performed without contrast. A dose lowering techni que was utilized adhering to the principles of ALARA. COMPARISON: Ultrasound 09/04/2019. Chest series 09/06/2019 FINDINGS: bibasilar findings of scattered atelectasis. No well-defined focal infiltrative process. Mi nimal groundglass changes right pulmonary apex. 6 minimal at millimeters nodular density right middle lobe with an additional 5 mm nodular density anterior aspect right middle lobe. Cardiomegaly. Small pericardial effusion with a maximum thickness of 1 cm. Mild body wall anasarca. Upper abdominal ascites somewhat increased from the prior ultrasound. IMPRESSION: 1. Scattered platelike atelectatic change at both lung bases. 2.. No well-defined focal infiltrate in the basilar regions. 3. Patchy groundglass infiltrative process right upper lung. 4. Low suspicion nodularity right middle lobe. 5. Upper abdominal ascites somewhat progressive compared to the patient's prior ultrasound. 6. Cardiomegaly with a small pericardial effusion. 7. Mild body wall anasarca. ACT 112: Negative or not required by law. The above report was generated using voice recognition software. It may contain grammatical, syntax or spelling errors. Electronically signed by: Isaac Marr M.D. 09/07/2019 12:19 PM
[2019-09-07] MEDS: GUAIFENESIN/DEXTROM SYRUP 200MG/20MG 10ML UDC PO PRN (12:36)
--- NOTE | 2019-09-07 12:44 | Pharmacy Report ---
Pharmacy Glycemic Short Note 2 - Date of Service September 07, 2019 - Glycemic Short BSG Results (Last 24 hours): 09/06/19 09/06/19 09/07/19 16:54 21:05 06:25 Glucose 212 H POC Glucose 141 H 221 H 09/07/19 09/07/19 08:08 11:51 Glucose POC Glucose 238 H 133 H ASSESSMENT: 09/07: * Patient received total of 37 units of insulin yesterday, of which 20 were basal insulin * Fasting BSG still remains elevated despite Lantus increase last evening - will add scale for this evening/titrate dose * BSGs trending up last evening - will tighten CF/CR more this AM * Lunch time BSG trending down significantly - loosened CF/CR back PLAN FOR INPATIENT GLYCEMIC CONTROL: * Hold outpatient oral diabetes medications * Basal insulin * Lantus 20-25 units HS based upon BSG * Bolus insulin * NovoLog per scale ACHS or Q6hrs while NPO * Goal Range: Low 120 mg/dL - High 150 mg/dL * Correction Factor: 25 mg/dL/unit * Nutritional / Prandial insulin per carb ratio of 1 unit per 10 grams CHO c onsumed
--- NOTE | 2019-09-07 15:43 | Hospitalist Progress Note ---
Date of Service September 07, 2019 Assessment & Plan (1) C. difficile diarrhea: Likely C. difficile enterocolitis C. difficile testing positive for Tox B gene, negative for toxin Considering that patient has been on different antibiotics for over 7 days for treatment of pneumonia, persistent watery diarrhea is likely related to C. difficile. Will continue po vancomycin Had 1 loose stool so far today Continue to monitor bowel movement (2) Cough: Patient has received antibiotics for over 7 days. Chest x-ray reported bibasilar linear densities which are improving and stated to be likely due to atelectasis. No leukocytosis. Procalcitonin is 0.3 Patient's cough may be related to bronchitis Based on patient's history, exam findings, patient had received total of 7 days of antibiotic treatment, no leukocytosis, procal of 0.[address] findings, my suspicion for bacterial pneumonia process is low Antibiotics had been discontinued Continue Tessalon which patient reports helps a lot. Guaifenesin as needed cough Continue nebs as needed and wheezing supportive care Per exam and CT findings patient seems volume overloaded. Planned to have fluid removal with HD. Continue diuretic (3) Paroxysmal atrial fibrillation: (4) Supratherapeutic INR: Rate controlled on amiodarone and carvedilol Coumadin on hold due to supratherapeutic INR of 10 yesterday Got vitamin K p.o. on admission and INR went down to 1.9 P.o. warfarin was resumed. INR today is 1.9 (5) Thrombocytopenia: Chronic thrombocytopenia for which patient follows hematology Platelet today is 43 Monitor By admitting physician, there are plans for high-dose Decadron 40 mg daily for 4 days if platelet count drops less than 30 and possible bone marrow biopsy. Patient needs follow-up with plate cleaner on discharge (6) Chronic systolic heart failure: Currently euvolemic On torsemide at home Monitor volume status especially with diarrhea Continue Coreg (7) Automatic implantable cardioverter-defibrillator in situ: (8) History of CVA (cerebrovascular accident): Continue aspirin (9) ESRD (end stage renal disease) on dialysis: Nephrology on board for HD Getting HD today Will get fluid removal (10) Anemia of renal disease: Hemoglobin stable in 10s Monitor DVT prophylaxis Coumadin Admission and Anticipated Discharge Date Admission Date: September 03, 2019 Subjective Patient seen and examined. Patient still reports persistent cough and shortness of breath. She denies any fevers. Reports some chest pain with the cough. Still has diffuse abdominal discomfort, intermittent, occasionally worsened after eating. Patient reports she still has watery stool. She does not remember how many times today. However, per RN, patient still has loose stool but had only had 1 this morning. Physical Exam Constitutional: + well hydrated; no acute distress Eyes: PERRL, conjunctivae normal, anicteric sclerae ENMT: external ear and nose normal, oropharynx normal Respiratory: normal respiratory effort and + cough; no respiratory distress Auscultation: + crackles (Basilar); no wheezes Cardiovascular: Rate/Rhythm: regular rate and regular rhythm Extremities: + pedal edema S1 S2 Gastrointestinal (Abdomen): normal bowel sounds, soft, nontender, no hepatosplenomegaly Neurologic: PERRL, EOMI, accommodation nl, no face palsy, no dysarthria Psychiatric: A+Ox3, euthymic affect Results & Data ([facility]) Vital Signs (Past 12 Hours) Vital Signs Temp Pulse Pulse Pulse Resp BP Pulse Ox 09/07/19 15:25 37.5 C 63 09/07/19 07:43 36.5 C 60 18 137/70 97 09/07/19 05:00 65 18 97 Laboratory Results Abnormal lab results 09/06/19 09/07/19 09/07/19 Range/Units 21:05 06:25 06:25 WBC 4.63 L (4.8-10.8) K/uL RBC 3.10 L (4.2-5.4) M/uL Hgb 10.0 L (12.0-16.0) g/dL Hct 30.1 L (37-47) % RDW Std Deviation 52.5 H (36.4-46.3) fL RDW Coeff of Jacobo 14.8 H (11.5-14.5) % Plt Count 43 L (130-400) K/uL MPV 13.1 H (7.4-10.4) fL Absolute Nucleated RBC 0.02 H (0-0) K/uL PT 18.4 H (9.0-12.0) Seconds INR 1.9 H (0.9-1.1) Sodium (136-145) mmol/L Chloride (98-107) mmol/L BUN (7-18) mg/dl Creatinine (0.6-1.2) mg/dl BUN/Creatinine Ratio (10-20) Glucose (70-99) mg/dl POC Glucose 221 H (70-99) mg/dl Total Bilirubin (0.2-1) mg/dl AST (15-37) U/L Alkaline Phosphatase (45-117) U/L Albumin (3.4-5.0) gm/dl 09/07/19 09/07/19 09/07/19 Range/Units 06:25 08:08 11:51 WBC (4.8-10.8) K/uL RBC (4.2-5.4) M/uL Hgb (12.0-16.0) g/dL Hct (37-47) % RDW Std Deviation (36.4-46.3) fL RDW Coeff of Jacobo (11.5-14.5) % Plt Count (130-400) K/uL MPV (7.4-10.4) fL Absolute Nucleated RBC (0-0) K/uL PT (9.0-12.0) Seconds INR (0.9-1.1) Sodium 129 L (136-145) mmol/L Chloride 94 L (98-107) mmol/L BUN 45 H (7-18) mg/dl Creatinine 5.18 H* D (0.6-1.2) mg/dl BUN/Creatinine Ratio 8.7 L (10-20) Glucose 212 H (70-99) mg/dl POC Glucose 238 H 133 H (70-99) mg/dl Total Bilirubin 1.2 H (0.2-1) mg/dl AST 69 H (15-37) U/L Alkaline Phosphatase 205 H (45-117) U/L Albumin 3.3 L (3.4-5.0) gm/dl Diagnostic Findings CT Chest 1. Scattered platelike atelectatic change at both lung bases. 2.. No well-defined focal infiltrate in the basilar regions. 3. Patchy groundglass infiltrative process right upper lung. 4. Low suspicion nodularity right middle lobe. 5. Upper abdominal ascites somewhat progressive compared to the patient's prior ultrasound. 6. Cardiomegaly with a small pericardial effusion. 7. Mild body wall anasarca
--- NOTE | 2019-09-07 16:28 | Dialysis Progress Note ---
Date of Service September 07, 2019 Assessment & Plan (1) End-stage renal disease (ESRD): Patient with ESRD on HD TTS. Worsening hyponatremia low and reflective of mild volume overload. For routine dialysis today and on track for 2.5 L fluid removal. I ordered a 1.5 L daily fluid limit. However she is nowhere near this on I's and O's. Next dialysis tentatively for September 09 or as clinical needs dictate (2) HTN (hypertension): BP is above target but improving with dialysis. Continue current regimen. (3) Anemia of renal disease: Hb is 10. 0. Gave low-dose erythropoietin on dialysis today. No heparin on dialysis due to chronic thrombocytopenia. (4) Bronchopneumonia: Primary service favors bronchitis more than pneumonia. Antibiotics now stopped renally dose antibiotics for GFR of 25ml/min while on HD Subjective Seen on dialysis. Still feels exhausted. On room air. Complains of crampy abdominal pain, related to bowel movements. Though with some liquid bowel movements and some form to them. Not dyspneic. Him cough. Review of Systems Review of Systems: All systems reviewed & are unremarkable except as noted in HPI & below Physical Exam Constitutional: well developed, well nourished, + frail appearing and cooperative; no acute distress On room air Eyes: EOM intact bilaterally ENMT: Ears: no external ear abnormality Nose: no external nose abnormality Mouth: + dry oral mucous membranes Dry mucous membranes and quite hoarse Neck: no nuchal rigidity Respiratory: normal respiratory effort Auscultation: lungs clear to auscultation bilaterally and + diminished lung sounds Cardiovascular: Rate/Rhythm: regular rate and regular rhythm Extremities: + AV fistula; no edema Gastrointestinal (Abdomen): Inspection/Auscultation: normal bowel sounds Percussion/Palpation: abdomen soft; abdomen nontender and no guarding Musculoskeletal: Extremities: strength 5/5 throughout Skin: no rashes, warm and dry Neurologic: bustamante, fluent speech, no tremor Psychiatric: A+Ox3, euthymic affect Results & Data Vital Signs (Past 12 Hours) Vital Signs Temp Pulse Pulse Pulse Resp BP Pulse Ox 09/07/19 15:25 37.5 C 63 09/07/19 07:43 36.5 C 60 18 137/70 97 09/07/19 05:00 65 18 97 Laboratory Results 09/07/19 06:25 09/07/19 06:25 (1) HTN (hypertension) Hypertension type: unspecified Qualified Code(s): I10 - Essential (primary) hypertension
[2019-09-07] MEDS ORDERED: SODIUM CHLORIDE 0.9% 250 ML IV PRN (20:00)
[2019-09-07] MEDS ORDERED: PHYTONADIONE 2.5 MG in SODIUM CHLORIDE 0.9% 50 ML IV ONE (20:15)
[2019-09-07] MEDS: TORSEMIDE 20 MG TAB PO SCH (20:51)
[2019-09-07] MEDS: carvediloL 25 MG TAB PO SCH ×2 (20:51→20:59)
[2019-09-07] MEDS: AMIODARONE 200 MG TAB PO SCH (20:51)
[2019-09-07] MEDS: HydrALAZINE TAB 50 MG TAB PO SCH ×3 (20:51→21:46)
[2019-09-07] MEDS: WARFARIN SOD 4 MG TAB PO SCH (20:52)
[2019-09-07] MEDS: ONDANSETRON INJ 2 MG/ML 2 ML VIAL IV PRN (20:57)
[2019-09-07] MEDS: ATORVASTATIN 40 MG TAB PO SCH (21:03)
[2019-09-07] MEDS: INSULIN GLARGINE SOLOSTAR 100 UNITS/ML 3 ML PEN SQ SCH (21:03)
[2019-09-07 21:47] LABS: Hematocrit (blood only) 30.9 % (37-47); Hemoglobin 11.7 g/dL (12.0-16.0)
[2019-09-07] MEDS ORDERED: HydrALAZINE HCL 20 MG/ML VIAL IV ONE (22:19)
[2019-09-08] MEDS: ACETAMINOPHEN 325 MG TAB PO PRN ×3 (01:35→11:59)
[2019-09-08 06:15] LABS: Hematocrit (blood only) 28.9 % (37-47); Hemoglobin 9.7 g/dL (12.0-16.0); Mean Corpuscular Hemoglobin 32.7 pg (25-34); Mean Corpuscular Hgb Conc 33.6 g/dL (32-36); Mean Corpuscular Volume 97.3 fL (80-100); Platelet Count 53 K/uL (130-400); RDW Coefficient of Variation 14.8 % (11.5-14.5); RDW Standard Deviation 52.3 fL (36.4-46.3); Red Blood Count 2.97 M/uL (4.2-5.4); White Blood Count 5.29 K/uL (4.8-10.8)
[2019-09-08 06:18] LABS: INR 1.6 (0.9-1.1); Prothrombin Time 16.1 Seconds (9.0-12.0)
[2019-09-08] MEDS: VANCOMYCIN HCL 125 MG/2.5ML SOLN PO SCH ×3 (06:23→17:35)
[2019-09-08] MEDS: RASPBERRY SYRUP 5 ML UDP PO SCH ×3 (06:23→17:35)
[2019-09-08 06:43] LABS: Albumin Level 3.2 gm/dl (3.4-5.0); BUN Creatinine Ratio 7.2 (10-20); Bilirubin Direct 0.5 mg/dl (0-0.2); Calcium 8.6 mg/dl (8.5-10.1); Creatinine Clr Calc Pharmacy 13.4 ml/min; Est GFR (African American) 14.6; Est GFR (Non-African American) 12.6; Magnesium 1.9 mg/dl (1.8-2.4); Potassium 3.2 mmol/L (3.5-5.1)
[2019-09-08 06:46] LABS: Bilirubin,Total 1.3 mg/dl (0.2-1); Phosphorus 2.3 mg/dl (2.5-4.9); Total Protein 6.1 gm/dl (6.4-8.2)
[2019-09-08] MEDS: ONDANSETRON INJ 2 MG/ML 2 ML VIAL IV PRN (07:49)
[2019-09-08] MEDS: GUAIFENESIN/DEXTROM SYRUP 200MG/20MG 10ML UDC PO PRN ×2 (07:50→22:29)
[2019-09-08] MEDS: CALCIUM ACETATE 667 MG CAP PO SCH (07:56)
[2019-09-08] MEDS: HydrALAZINE TAB 50 MG TAB PO SCH ×3 (07:56→21:33)
[2019-09-08] MEDS: AMIODARONE 200 MG TAB PO SCH (07:56)
[2019-09-08] MEDS: TORSEMIDE 20 MG TAB PO SCH (07:57)
[2019-09-08] MEDS: carvediloL 25 MG TAB PO SCH ×2 (07:57→21:33)
[2019-09-08] MEDS: ASPIRIN 81 MG ECTAB PO SCH (08:00)
[2019-09-08] MEDS: FLUTICASONE PROPIONATE NA SPR 16 GM BTL SCH (08:00)
[2019-09-08] MEDS: FAMOTIDINE 20 MG TAB PO SCH (08:01)
[2019-09-08] MEDS: PANTOprazole 40 MG TAB PO SCH (08:01)
[2019-09-08] MEDS: LACTOBACILLUS ACIDOPHILUS (FLORANEX) TAB PO SCH ×3 (08:03→21:33)
[2019-09-08] MEDS: INSULIN ASPART 100 UNITS/ML 3 ML PEN SC SCH ×4 (08:47→21:33)
[2019-09-08] MEDS ORDERED: POTASSIUM CHLORIDE 20 MEQ TABCR PO ONE (09:28)
[2019-09-08] MEDS ORDERED: Nursing to Pharmacy Communication ONE (10:13)
[2019-09-08] MEDS ORDERED: LIDOCAINE 4% CREAM 15 GM TUBE EXT PRN (11:07)
[2019-09-08] MEDS ORDERED: WARFARIN SOD 2.5 MG TAB PO ONE (16:34)
[2019-09-08] MEDS: WARFARIN SOD 4 MG TAB PO SCH (17:28)
--- NOTE | 2019-09-08 18:53 | Hospitalist Progress Note ---
Date of Service September 08, 2019 Assessment & Plan (1) C. difficile diarrhea: Likely C. difficile enterocolitis C. difficile testing positive for Tox B gene, negative for toxin Considering that patient has been on different antibiotics for over 7 days for treatment of pneumonia, persistent watery diarrhea is likely related to C. difficile. Continue PO vanco Diarrhea improves (2) Cough: Patient has received antibiotics for over 7 days. Chest x-ray reported bibasilar linear densities which are improving and stated to be likely due to atelectasis. No leukocytosis. CT chest showed scattered platelike atelectatic change at both lung bases. No well-defined focal infiltrate in the basilar regions. Patchy groundglass infiltrative process right upper lung. Procalcitonin is 0.3 Based on patient's history, exam findings, patient had received total of 7 days of antibiotic treatment, no leukocytosis, procal of 0.3 recent Antibiotics had been discontinued Guaifenesin as needed cough Continue nebs as needed and wheezing supportive care (3) Paroxysmal atrial fibrillation: (4) Supratherapeutic INR: Rate controlled on amiodarone and carvedilol Coumadin on hold due to supratherapeutic INR of 10 yesterday Got vitamin K p.o. on admission and INR went down to 1.9 P.o. warfarin was resumed. INR today is 1.6 (5) Thrombocytopenia: Chronic thrombocytopenia for which patient follows hematology Platelet today is 53 By admitting physician, there are plans for high-dose Decadron 40 mg daily for 4 days if platelet count drops less than 30 and possible bone marrow biopsy. Patient needs follow-up with artillery meteorological man on discharge Monitor CBC (6) Chronic systolic heart failure: Currently euvolemic On torsemide at home Continue to manage Volume during HD Continue Coreg (7) Automatic implantable cardioverter-defibrillator in situ: (8) History of CVA (cerebrovascular accident): Continue aspirin (9) ESRD (end stage renal disease) on dialysis: Nephrology on board for HD Plan to get HD tomorrow (10) Anemia of renal disease: Hemoglobin dropped to 9.7 Pt was bleeding last night from the dialysis port Monitor CBC Right Shoulder pain Will get an Xray of the shoulder Continue Lidocaine prn DVT prophylaxis On Coumadin Admission and Anticipated Discharge Date Admission Date: September 03, 2019 Subjective Pt was seen and examined Lying in bed with no distress Pt said that she has pain in her right shoulder area She said that her diarrhea improves Denies any chest pain, palpitation, dizziness and SOB Physical Exam Physical Exam: General- No acute distress Head- atraumatic Eyes- PERRL, EOMI, ENT- oropharynx clear Neck- supple, no JVD Lungs- Diminished BS Heart- regular rhythm; no murmur Abdomen- normal bowel sounds, soft, nontender Extremities- no calf tenderness, +edema, right shoulder tenderness Neuro- alert, oriented x 3; PERRL, EOMI; no facial palsy; no dysarthria Skin- warm & dry Results & Data ([facility]) Vital Signs (Past 12 Hours) Vital Signs Temp Pulse Pulse Resp BP Pulse Ox 09/08/19 15:19 36.3 C L 59 L 16 158/72 H 98 09/08/19 07:16 36.6 C 62 16 136/70 92
[2019-09-08] MEDS ORDERED: COUGH DROP (SUGAR FREE) LOZ 24 LOZ/1 BOX BUCCAL PRN (19:04)
--- NOTE | 2019-09-08 21:06 | Nephrology Progress Note ---
Date of Service September 08, 2019 Assessment & Plan (1) End-stage renal disease (ESRD): Patient with ESRD on HD TTS. for routine HD tomorrow. cont 1.5 L daily fluid limit. However she is nowhere near this intake on I's and O's. Next dialysis tentatively for September 09 or as clinical needs dictate >>>with low k>> supplemented 40 mEq po x 1 >>w/ low phos > held binder for midday, evening meals -recheck bmp, phos for am ordered (2) HTN (hypertension): BP is above target but improving with dialysis. Continue current regimen. (3) Anemia of renal disease: Hb is 10. 0. cont low-dose erythropoietin on dialysis . No heparin on dialysis due to chronic thrombocytopenia. (4) Bronchopneumonia: Primary service favors bronchitis more than pneumonia. Antibiotics now stopped renally dose antibiotics for GFR of 25ml/min while on HD Admission and Anticipated Discharge Date Admission Date: September 03, 2019 Subjective seen on rounds this evening > hardly taking po and both K, phos low; still w/ cough, still tired but feels a small bit better. Review of Systems Review of Systems: All systems reviewed & are unremarkable except as noted in HPI & below Physical Exam Constitutional: well developed, well nourished, + frail appearing and cooperative; no acute distress up in chair on ra 07/15 eaten tray Eyes: EOM intact bilaterally ENMT: Ears: no external ear abnormality Nose: no external nose abnormality Mouth: + dry oral mucous membranes Neck: no nuchal rigidity Respiratory: normal respiratory effort and + prolonged expiratory phase Auscultation: + diminished lung sounds, + crackles, + rhonchi and + wheezes Cardiovascular: Rate/Rhythm: regular rate and regular rhythm Extremities: + edema (trace BL) and + AV fistula Gastrointestinal (Abdomen): Inspection/Auscultation: normal bowel sounds Percussion/Palpation: abdomen soft; abdomen nontender and no guarding Musculoskeletal: Extremities: strength 5/5 throughout Skin: no rashes, warm and dry Neurologic: bustamante, fluent speech, no tremor Psychiatric: A+Ox3, euthymic affect Results & Data ([facility]) Vital Signs (Past 12 Hours) Vital Signs Temp Pulse Resp BP Pulse Ox 09/08/19 19:05 36.7 C 65 18 164/72 H 94 09/08/19 15:19 36.3 C L 59 L 16 158/72 H 98 Laboratory Results 09/08/19 05:48 09/08/19 05:48 (1) HTN (hypertension) Hypertension type: unspecified Qualified Code(s): I10 - Essential (primary) hypertension
[2019-09-08] MEDS: INSULIN GLARGINE SOLOSTAR 100 UNITS/ML 3 ML PEN SQ SCH (21:33)
[2019-09-08] MEDS: ATORVASTATIN 40 MG TAB PO SCH (21:33)
[2019-09-08] MEDS: BENZONATATE 100 MG CAPSULE PO PRN (21:33)
[2019-09-09] MEDS: ACETAMINOPHEN 325 MG TAB PO PRN (00:09)
[2019-09-09] MEDS: GUAIFENESIN/DEXTROM SYRUP 200MG/20MG 10ML UDC PO PRN ×2 (03:15→23:54)
[2019-09-09] MEDS: VANCOMYCIN HCL 125 MG/2.5ML SOLN PO SCH ×5 (05:54→23:33)
[2019-09-09] MEDS: RASPBERRY SYRUP 5 ML UDP PO SCH ×5 (05:54→23:33)
[2019-09-09] MEDS: BENZONATATE 100 MG CAPSULE PO PRN ×2 (06:01→21:01)
[2019-09-09] MEDS ORDERED: EPOETIN ALFA 10,000 UNITS/ML VIAL IV ONE (07:00)
[2019-09-09] MEDS ORDERED: SODIUM CHLORIDE 0.9% 1000ML 1,000 ML IV PRN (07:00)
[2019-09-09] MEDS: carvediloL 25 MG TAB PO SCH ×2 (07:59→20:57)
[2019-09-09] MEDS: HydrALAZINE TAB 50 MG TAB PO SCH ×3 (07:59→20:57)
[2019-09-09] MEDS: PANTOprazole 40 MG TAB PO SCH (08:13)
[2019-09-09] MEDS: TORSEMIDE 20 MG TAB PO SCH (08:13)
[2019-09-09] MEDS: ASPIRIN 81 MG ECTAB PO SCH (08:13)
[2019-09-09] MEDS: AMIODARONE 200 MG TAB PO SCH (08:13)
[2019-09-09] MEDS: LACTOBACILLUS ACIDOPHILUS (FLORANEX) TAB PO SCH ×4 (08:14→20:57)
[2019-09-09] MEDS: CALCIUM ACETATE 667 MG CAP PO SCH ×3 (08:14→18:06)
[2019-09-09] MEDS: FAMOTIDINE 20 MG TAB PO SCH (08:14)
[2019-09-09] MEDS: FLUTICASONE PROPIONATE NA SPR 16 GM BTL SCH (08:14)
[2019-09-09] MEDS: INSULIN ASPART 100 UNITS/ML 3 ML PEN SC SCH ×4 (09:04→20:55)
--- NOTE | 2019-09-09 10:15 | XRay Report ---
XR shoulder RT min 2V routine CLINICAL HISTORY: shoulder pain COMPARISON: None. DISCUSSION: No acute fractures or dislocations are visualized. There mild degenerative changes of the AC joint. IMPRESSION: No fractures or dislocations identified. ACT 112: Negative or not required by law. Electronically signed by: Tex Sanders M.D. 09/09/2019 10:14 AM
[2019-09-09 10:55] LABS: INR 1.5 (0.9-1.1); Prothrombin Time 14.6 Seconds (9.0-12.0)
[2019-09-09 11:18] LABS: Hematocrit (blood only) 29.8 % (37-47); Mean Corpuscular Hgb Conc 33.6 g/dL (32-36); Mean Corpuscular Volume 98.3 fL (80-100); Mean Platelet Volume 12.3 fL (7.4-10.4); Platelet Count 95 K/uL (130-400); RDW Coefficient of Variation 15.2 % (11.5-14.5); RDW Standard Deviation 53.8 fL (36.4-46.3); Red Blood Count 3.03 M/uL (4.2-5.4); White Blood Count 6.07 K/uL (4.8-10.8)
[2019-09-09 11:19] LABS: Platelet Estimate Decreased (Normal)
[2019-09-09 11:36] LABS: BUN Creatinine Ratio 6.7 (10-20); Calcium 8.5 mg/dl (8.5-10.1); Creatinine Clr Calc Pharmacy 10.2 ml/min; Est GFR (African American) 10.5; Est GFR (Non-African American) 9.1; Phosphorus 2.7 mg/dl (2.5-4.9)
--- NOTE | 2019-09-09 18:36 | Nephrology Progress Note ---
Date of Service September 09, 2019 Assessment & Plan (1) End-stage renal disease (ESRD): Patient with ESRD on HD TTS. for routine HD . cont 1.5 L daily fluid limit. However she is nowhere near this intake on I's and O's. Next dialysis tentatively for September 09 or as clinical needs dictate >>>with low k>> ran on 3 K bath; ordered repeat lab for am bmp >>w/ lower phos but resumed binder (2) HTN (hypertension): BP is above target but improving with dialysis. Continue current regimen. (3) Anemia of renal disease: Hb is 10. 0. cont low-dose erythropoietin on dialysis . No heparin on dialysis due to chronic thrombocytopenia. (4) Bronchopneumonia: Primary service favors bronchitis more than pneumonia. Antibiotics now stopped renally dose antibiotics for GFR of 25ml/min while on HD Admission and Anticipated Discharge Date Admission Date: September 03, 2019 Subjective seen on rounds this am at 1025; had large BM; still feels weak , exhausted; more sob today; bled for 1 hr after last tx Review of Systems Review of Systems: All systems reviewed & are unremarkable except as noted in HPI & below Physical Exam Constitutional: well developed, well nourished, + frail appearing and cooperative; no acute distress Eyes: EOM intact bilaterally ENMT: Ears: no external ear abnormality Nose: no external nose abnormality Mouth: + dry oral mucous membranes Neck: no nuchal rigidity Respiratory: normal respiratory effort and + paradoxical thoraco-abdominal movement Auscultation: + diminished lung sounds, + crackles, + rhonchi and + wheezes Cardiovascular: Rate/Rhythm: regular rate and regular rhythm Extremities: + edema (trace BL) and + AV fistula Gastrointestinal (Abdomen): Inspection/Auscultation: normal bowel sounds Percussion/Palpation: abdomen soft; abdomen nontender and no guarding Musculoskeletal: Extremities: strength 5/5 throughout Skin: no rashes, warm and dry Neurologic: bustamante, fluent speech, no tremor Psychiatric: A+Ox3, euthymic affect Results & Data ([facility]) Vital Signs (Past 12 Hours) Vital Signs Temp Pulse Pulse Pulse Resp BP BP 09/09/19 15:17 36.6 C 61 16 178/69 H 09/09/19 13:44 37.0 C 60 146/55 H 09/09/19 13:42 61 157/67 H 09/09/19 13:20 60 146/55 H 09/09/19 13:00 60 143/59 H 09/09/19 12:41 57 L 149/53 H 09/09/19 12:02 60 155/59 H 09/09/19 11:40 62 136/57 L 09/09/19 11:20 62 162/69 H 09/09/19 11:00 68 134/68 09/09/19 10:40 70 140/66 09/09/19 10:20 62 144/60 H 09/09/19 10:00 37.0 C 61 09/09/19 07:16 36.8 C 64 16 147/68 H Pulse Ox 09/09/19 15:17 99 09/09/19 13:44 09/09/19 13:42 09/09/19 13:20 09/09/19 13:00 09/09/19 12:41 09/09/19 12:02 09/09/19 11:40 09/09/19 11:20 09/09/19 11:00 09/09/19 10:40 09/09/19 10:20 09/09/19 10:00 09/09/19 07:16 94 Laboratory Results 09/09/19 10:22 09/09/19 13:51 (1) HTN (hypertension) Hypertension type: unspecified Qualified Code(s): I10 - Essential (primary) hypertension
[2019-09-09] MEDS ORDERED: WARFARIN SOD 4 MG TAB PO ONE (19:35)
--- NOTE | 2019-09-09 19:35 | Hospitalist Progress Note ---
Date of Service September 09, 2019 Assessment & Plan (1) C. difficile diarrhea: Likely C. difficile enterocolitis C. difficile testing positive for Tox B gene, negative for toxin Considering that patient has been on different antibiotics for over 7 days for treatment of pneumonia, persistent watery diarrhea is likely related to C. difficile. Continue PO vanco Diarrhea improves (2) Cough: Patient has received antibiotics for over 7 days. Chest x-ray reported bibasilar linear densities which are improving and stated to be likely due to atelectasis. No leukocytosis. CT chest showed scattered platelike atelectatic change at both lung bases. No well-defined focal infiltrate in the basilar regions. Patchy groundglass infiltrative process right upper lung. Procalcitonin is 0.3 Based on patient's history, exam findings, patient had received total of 7 days of antibiotic treatment, no leukocytosis, procal of 0.3 recent Antibiotics had been discontinued Guaifenesin as needed cough Continue nebs as needed and wheezing supportive care (3) Paroxysmal atrial fibrillation: (4) Supratherapeutic INR: Rate controlled on amiodarone and carvedilol Coumadin on hold due to supratherapeutic INR of 10 yesterday Got vitamin K p.o. on admission and INR went down to 1.9 P.o. warfarin was resumed. INR today is 1.5 (5) Thrombocytopenia: Chronic thrombocytopenia for which patient follows hematology Platelet today is 53 By admitting physician, there are plans for high-dose Decadron 40 mg daily for 4 days if platelet count drops less than 30 and possible bone marrow biopsy. Patient needs follow-up with orchard sprayer on discharge Monitor CBC (6) Chronic systolic heart failure: Currently euvolemic On torsemide at home Continue to manage Volume during HD Continue Coreg (7) Automatic implantable cardioverter-defibrillator in situ: (8) History of CVA (cerebrovascular accident): Continue aspirin (9) ESRD (end stage renal disease) on dialysis: Nephrology on board for HD Plan to get HD tomorrow (10) Anemia of renal disease: Hemoglobin dropped to 9.7 Pt was bleeding last night from the dialysis port Monitor CBC Right Shoulder pain Xray of the shoulder showed no arthritis Continue Lidocaine prn DVT prophylaxis On Coumadin Admission and Anticipated Discharge Date Admission Date: September 03, 2019 Subjective Pt was seen and examined Lying in bed with no distress getting HD Pt said that diarrhea improves and stool started to feel form Denies any chest pain, palpitation and SOB Physical Exam Physical Exam: General- No acute distress Head- atraumatic Eyes- PERRL, EOMI, ENT- oropharynx clear Neck- supple, no JVD Lungs- Diminished BS Heart- regular rhythm; no murmur Abdomen- normal bowel sounds, soft, nontender Extremities- no calf tenderness, +edema, right shoulder tenderness Neuro- alert, oriented x 3; PERRL, EOMI; no facial palsy; no dysarthria Skin- warm & dry Results & Data ([facility]) Vital Signs (Past 12 Hours) Vital Signs Temp Pulse Pulse Pulse Resp BP BP 09/09/19 15:17 36.6 C 61 16 178/69 H 09/09/19 13:44 37.0 C 60 146/55 H 09/09/19 13:42 61 157/67 H 09/09/19 13:20 60 146/55 H 09/09/19 13:00 60 143/59 H 09/09/19 12:41 57 L 149/53 H 09/09/19 12:02 60 155/59 H 09/09/19 11:40 62 136/57 L 09/09/19 11:20 62 162/69 H 09/09/19 11:00 68 134/68 09/09/19 10:40 70 140/66 09/09/19 10:20 62 144/60 H 09/09/19 10:00 37.0 C 61 Pulse Ox 09/09/19 15:17 99 09/09/19 13:44 09/09/19 13:42 09/09/19 13:20 09/09/19 13:00 09/09/19 12:41 09/09/19 12:02 09/09/19 11:40 09/09/19 11:20 09/09/19 11:00 09/09/19 10:40 09/09/19 10:20 09/09/19 10:00
[2019-09-09] MEDS: INSULIN GLARGINE SOLOSTAR 100 UNITS/ML 3 ML PEN SQ SCH (20:53)
[2019-09-09] MEDS: ATORVASTATIN 40 MG TAB PO SCH (20:57)
[2019-09-10] MEDS: ACETAMINOPHEN 325 MG TAB PO PRN (02:42)
[2019-09-10] MEDS: VANCOMYCIN HCL 125 MG/2.5ML SOLN PO SCH ×3 (05:20→17:29)
[2019-09-10] MEDS: RASPBERRY SYRUP 5 ML UDP PO SCH ×3 (05:20→17:29)
[2019-09-10] MEDS: GUAIFENESIN/DEXTROM SYRUP 200MG/20MG 10ML UDC PO PRN (06:25)
[2019-09-10 07:50] LABS: BUN Creatinine Ratio 5.7 (10-20); Calcium 8.7 mg/dl (8.5-10.1); Creatinine Clr Calc Pharmacy 12.9 ml/min; Est GFR (African American) 14.2; Est GFR (Non-African American) 12.2; Phosphorus 2.1 mg/dl (2.5-4.9); Potassium 3.6 mmol/L (3.5-5.1)
[2019-09-10] MEDS: LACTOBACILLUS ACIDOPHILUS (FLORANEX) TAB PO SCH ×3 (09:33→21:09)
[2019-09-10] MEDS: ASPIRIN 81 MG ECTAB PO SCH (09:33)
[2019-09-10] MEDS: FLUTICASONE PROPIONATE NA SPR 16 GM BTL SCH (09:33)
[2019-09-10] MEDS: carvediloL 25 MG TAB PO SCH ×2 (09:33→21:09)
[2019-09-10] MEDS: AMIODARONE 200 MG TAB PO SCH (09:33)
[2019-09-10] MEDS: HydrALAZINE TAB 50 MG TAB PO SCH ×3 (09:34→21:09)
[2019-09-10] MEDS: CALCIUM ACETATE 667 MG CAP PO SCH ×2 (09:34→13:06)
[2019-09-10] MEDS: TORSEMIDE 20 MG TAB PO SCH (09:34)
[2019-09-10] MEDS: FAMOTIDINE 20 MG TAB PO SCH (09:34)
[2019-09-10] MEDS: PANTOprazole 40 MG TAB PO SCH (09:34)
[2019-09-10] MEDS: INSULIN ASPART 100 UNITS/ML 3 ML PEN SC SCH ×4 (09:37→21:11)
--- NOTE | 2019-09-10 11:28 | Pharmacy Report ---
Pharmacy Glycemic Short Note 2 - Date of Service September 10, 2019 - Glycemic Short BSG Results (Last 24 hours): 09/09/19 09/09/19 09/09/19 10:22 12:14 14:03 Glucose 227 H POC Glucose 178 H 160 H 09/09/19 09/09/19 09/10/19 17:08 20:49 07:21 Glucose 104 H POC Glucose 204 H 175 H 09/10/19 08:04 Glucose POC Glucose 106 H ASSESSMENT: * Patient received total of 33 units of insulin yesterday. Insulin requirements remain stable. * 20 units of basal * 13 units of bolus * Fasting BSG is at goal. No changes will be made to basal insulin. * Post prandial BSG slightly above goal. Will tighten carb coverage. * Last HD session was 09/09. PLAN FOR INPATIENT GLYCEMIC CONTROL: * Hold outpatient oral diabetes medications * Basal insulin * Lantus 20-25 units HS based upon BSG * Bolus insulin - tighten carb coverage * NovoLog per scale ACHS or Q6hrs while NPO * Goal Range: Low 120 mg/dL - High 150 mg/dL * Correction Factor: 25 mg/dL/unit * Nutritional / Prandial insulin per carb ratio of 1 unit per 9 grams CHO consumed
--- NOTE | 2019-09-10 14:07 | XRay Report ---
XR KUB/Abdomen 1 view CLINICAL HISTORY: Abdominal pain COMPARISON STUDY: CT scan dated 10/31/2018 FINDINGS: There is no pathologic bowel dilatation. There are upper abdominal vascular calcifications. Pelvic basin calcifications likely represent phleboliths. Degenerative changes are present within th e lumbar spine. There are postsurgical changes of a bipolar left hip arthroplasty. IMPRESSION: Nonobstructive bowel gas pattern. ACT 112: Negative or not required by law. Electronically signed by: Tex Sanders M.D. 09/10/2019 2:06 PM
[2019-09-10] MEDS: WARFARIN SOD 4 MG TAB PO SCH (16:05)
--- NOTE | 2019-09-10 17:25 | Nephrology Progress Note ---
Date of Service September 10, 2019 Assessment & Plan (1) End-stage renal disease (ESRD): Patient with ESRD on HD TTS. for routine HD . cont 1.5 L daily fluid limit. However she is nowhere near this intake on I's and O's. >>>with low k>> will run on 4K bath Given her electrolyte issues recommend daily basic metabolic panel and phosphorus >>w/ lower phos consistently and I have put her binder on hold since she is eating so poorly (2) HTN (hypertension): BP is above target but improving with dialysis. Continue current regimen. (3) Anemia of renal disease: cont low-dose erythropoietin on dialysis . No heparin on dialysis due to chronic thrombocytopenia. (4) C. difficile diarrhea: On oral vancomycin and raspberry syrup. Diarrhea ongoing and no worse. Abdominal pain noted and will monitor; ischemic bowel on the differential given temporal relation to dialysis with this last episode; monitor for recurrent sx Admission and Anticipated Discharge Date Admission Date: September 03, 2019 Subjective Seen on rounds today at approximately 1530. Patient states she is eating a bit better but still overall less p.o. than normal. Ongoing cough and shortness of breath. Yesterday after dialysis she had severe crampy abdominal pain immedia tely after treatment. KUB without obstruction. Review of Systems Review of Systems: All systems reviewed & are unremarkable except as noted in HPI & below Physical Exam Constitutional: well developed, well nourished, + frail appearing and cooperative; no acute distress (Sitting in bed on room air) Eyes: EOM intact bilaterally ENMT: Ears: no external ear abnormality Nose: no external nose abnormality Mouth: + dry oral mucous membranes Hoarse Neck: no nuchal rigidity Respiratory: normal respiratory effort; no respiratory distress Auscultation: + diminished lung sounds, + crackles, + rhonchi and + wheezes Cardiovascular: Rate/Rhythm: regular rate and regular rhythm Extremities: + edema (trace BL) and + AV fistula Gastrointestinal (Abdomen): Inspection/Auscultation: normal bowel sounds Percussion/Palpation: abdomen soft; abdomen nontender and no guarding Musculoskeletal: Extremities: strength 5/5 throughout Skin: no rashes, warm and dry Neurologic: Moves all extremities, fluent speech, no tremor Psychiatric: A+Ox3, euthymic affect Results & Data ([facility]) Vital Signs (Past 12 Hours) Vital Signs Temp Pulse Pulse Resp BP Pulse Ox 09/10/19 15:31 36.4 C L 60 16 148/66 H 100 09/10/19 07:45 36.8 C 64 62 18 162/71 H 98 Laboratory Results 09/09/19 10:22 09/10/19 07:21 (1) HTN (hypertension) Hypertension type: unspecified Qualified Code(s): I10 - Essential (primary) hypertension
--- NOTE | 2019-09-10 19:18 | Hospitalist Progress Note ---
Date of Service September 10, 2019 Assessment & Plan (1) C. difficile diarrhea: Abdominal Pain Likely C. difficile enterocolitis C. difficile testing positive for Tox B gene, negative for toxin Considering that patient has been on different antibiotics for over 7 days for treatment of pneumonia, persistent watery diarrhea is likely related to C. difficile. Continue PO vanco KUB showed nonobstructive bowel gas pattern. Diarrhea improves (2) Cough: Patient has received antibiotics for over 7 days. Chest x-ray reported bibasilar linear densities which are improving and stated to be likely due to atelectasis. No leukocytosis. CT chest showed scattered platelike atelectatic change at both lung bases. No well-defined focal infiltrate in the basilar regions. Patchy groundglass infiltrative process right upper lung. Procalcitonin is 0.3 Based on patient's history, exam findings, patient had received total of 7 days of antibiotic treatment, no leukocytosis, procal of 0.3 recent Antibiotics had been discontinued Guaifenesin as needed cough Continue nebs as needed and wheezing supportive care (3) Paroxysmal atrial fibrillation: (4) Supratherapeutic INR: Rate controlled on amiodarone and carvedilol Coumadin on hold due to supratherapeutic INR of 10 yesterday Got vitamin K p.o. on admission and INR went down to 1.9 P.o. warfarin was resumed. INR today is 1.5 (5) Thrombocytopenia: Chronic thrombocytopenia for which patient follows hematology Platelet today is 53 By admitting physician, there are plans for high-dose Decadron 40 mg daily for 4 days if platelet count drops less than 30 and possible bone marrow biopsy. Patient needs follow-up with registered nurse practitioner on discharge Monitor CBC (6) Chronic systolic heart failure: Currently euvolemic On torsemide at home Continue to manage Volume during HD Continue Coreg (7) Automatic implantable cardioverter-defibrillator in situ: (8) History of CVA (cerebrovascular accident): Continue aspirin (9) ESRD (end stage renal disease) on dialysis: Nephrology on board for HD Plan to get HD tomorrow (10) Anemia of renal disease: Hemoglobin stable at 10 Pt was bleeding last night from the dialysis port Monitor CBC Right Shoulder pain Xray of the shoulder showed no arthritis Continue Lidocaine prn DVT prophylaxis On Coumadin Admission and Anticipated Discharge Date Admission Date: September 03, 2019 Subjective Pt was seen and examined Sitting in chair with no distress Pt said that her abdominal pain improves She said that her abdominal pain was worst after HD yesterday She said that she had 3 episodes of diarrhea today Denies any chest pain, palpitation, dizziness and SOB Physical Exam Physical Exam: General- No acute distress Head- atraumatic Eyes- PERRL, EOMI, ENT- oropharynx clear Neck- supple, no JVD Lungs- Diminished BS Heart- regular rhythm; no murmur Abdomen- normal bowel sounds, soft, nontender Extremities- no calf tenderness, +edema, right shoulder tenderness Neuro- alert, oriented x 3; PERRL, EOMI; no facial palsy; no dysarthria Skin- warm & dry Results & Data ([facility]) Vital Signs (Past 12 Hours) Vital Signs Temp Pulse Pulse Resp BP Pulse Ox 09/10/19 15:31 36.4 C L 60 16 148/66 H 100 09/10/19 07:45 36.8 C 64 62 18 162/71 H 98
[2019-09-10] MEDS: ATORVASTATIN 40 MG TAB PO SCH (21:09)
[2019-09-10] MEDS: INSULIN GLARGINE SOLOSTAR 100 UNITS/ML 3 ML PEN SQ SCH (21:13)
[2019-09-10] MEDS: BENZONATATE 100 MG CAPSULE PO PRN (21:25)
[2019-09-11] MEDS: VANCOMYCIN HCL 125 MG/2.5ML SOLN PO SCH ×5 (00:01→23:06)
[2019-09-11] MEDS: GUAIFENESIN/DEXTROM SYRUP 200MG/20MG 10ML UDC PO PRN ×2 (00:01→21:19)
[2019-09-11] MEDS: ACETAMINOPHEN 325 MG TAB PO PRN (03:52)
[2019-09-11] MEDS: RASPBERRY SYRUP 5 ML UDP PO SCH ×5 (05:42→23:06)
[2019-09-11] MEDS ORDERED: SODIUM CHLORIDE 0.9% 1000ML 1,000 ML IV PRN (07:00)
[2019-09-11] MEDS ORDERED: EPOETIN ALFA 10,000 UNITS/ML VIAL IV ONE (07:00)
[2019-09-11 08:31] LABS: INR 2.1 (0.9-1.1); Prothrombin Time 20.7 Seconds (9.0-12.0)
[2019-09-11 09:06] LABS: BUN Creatinine Ratio 6.5 (10-20); Calcium 8.8 mg/dl (8.5-10.1); Creatinine Clr Calc Pharmacy 9.3 ml/min; Est GFR (African American) 9.6; Est GFR (Non-African American) 8.3; Phosphorus 2.9 mg/dl (2.5-4.9); Potassium 3.9 mmol/L (3.5-5.1)
[2019-09-11] MEDS: HydrALAZINE TAB 50 MG TAB PO SCH ×3 (09:51→21:17)
[2019-09-11] MEDS: LACTOBACILLUS ACIDOPHILUS (FLORANEX) TAB PO SCH ×3 (09:51→21:19)
[2019-09-11] MEDS: ASPIRIN 81 MG ECTAB PO SCH (09:51)
[2019-09-11] MEDS: FLUTICASONE PROPIONATE NA SPR 16 GM BTL SCH (09:51)
[2019-09-11] MEDS: carvediloL 25 MG TAB PO SCH ×2 (09:52→21:18)
[2019-09-11] MEDS: TORSEMIDE 20 MG TAB PO SCH (09:52)
[2019-09-11] MEDS: AMIODARONE 200 MG TAB PO SCH (09:52)
[2019-09-11] MEDS: FAMOTIDINE 20 MG TAB PO SCH (09:52)
[2019-09-11] MEDS: PANTOprazole 40 MG TAB PO SCH (09:52)
[2019-09-11] MEDS: INSULIN ASPART 100 UNITS/ML 3 ML PEN SC SCH ×4 (09:55→22:15)
--- NOTE | 2019-09-11 14:34 | Pharmacy Report ---
Pharmacy Glycemic Short Note 2 - Date of Service September 11, 2019 - Glycemic Short BSG Results (Last 24 hours): 09/10/19 09/10/19 09/10/19 17:03 17:06 17:19 Glucose POC Glucose 59 L* 57 L* 71 09/10/19 09/11/19 09/11/19 20:35 07:56 08:29 Glucose 196 H POC Glucose 150 H 203 H 09/11/19 12:11 Glucose POC Glucose 247 H ASSESSMENT: * Patient received 39 units of insulin yesterday (20 of this being basal) * No change to causes of insulin resistance. Patient will receive HD today. * Fasting BSG = 203 mg/dL. It was 106 mg/dL yesterday and no changes have occurred. Will continue same basal for now, especially in the setting of hypoglycemia yesterday and HD today. * Postprandial BSGs lower yesterday so CR loosened this AM. Pre-lunch BSG elevated today but AM Novolog not given until ~1000. 09/10 * Patient received total of 33 units of insulin yesterday. Insulin requirements remain stable. * 20 units of basal * 13 units of bolus * Fasting BSG is at goal. No changes will be made to basal insulin. * Post prandial BSG slightly above goal. Will tighten carb coverage. * Last HD session was 09/09. PLAN FOR INPATIENT GLYCEMIC CONTROL: * Basal insulin - no change * Lantus 20-25 units HS based upon BSG * Bolus insulin - loosen CR * NovoLog per scale ACHS or Q6hrs while NPO * Goal Range: Low 120 mg/dL - High 150 mg/dL * Correction Factor: 25 mg/dL/unit * Nutritional / Prandial insulin per carb ratio of 1 unit per 9 grams CHO consumed
--- NOTE | 2019-09-11 16:26 | Hospitalist Progress Note ---
Date of Service September 11, 2019 Assessment & Plan (1) C. difficile diarrhea: Abdominal Pain Likely C. difficile enterocolitis C. difficile testing positive for Tox B gene, negative for toxin Considering that patient has been on different antibiotics for over 7 days for treatment of pneumonia, persistent watery diarrhea is likely related to C. difficile. Continue PO vanco KUB showed nonobstructive bowel gas pattern. Diarrhea improves (2) Cough: Patient has received antibiotics for over 7 days. Chest x-ray reported bibasilar linear densities which are improving and stated to be likely due to atelectasis. No leukocytosis. CT chest showed scattered platelike atelectatic change at both lung bases. No well-defined focal infiltrate in the basilar regions. Patchy groundglass infiltrative process right upper lung. Procalcitonin is 0.3 Based on patient's history, exam findings, patient had received total of 7 days of antibiotic treatment, no leukocytosis, procal of 0.3 recent Antibiotics had been discontinued Guaifenesin as needed cough Continue nebs as needed and wheezing supportive care Cough improves (3) Paroxysmal atrial fibrillation: (4) Supratherapeutic INR: Rate controlled on amiodarone and carvedilol Coumadin on hold due to supratherapeutic INR of 10 yesterday Got vitamin K p.o. on admission and INR went down to 1.9 Continue Comadin INR today is 2.1 (5) Thrombocytopenia: Chronic thrombocytopenia for which patient follows hematology Platelet 53 By admitting physician, there are plans for high-dose Decadron 40 mg daily for 4 days if platelet count drops less than 30 and possible bone marrow biopsy. Patient needs follow-up with physical instructor on discharge Monitor CBC (6) Chronic systolic heart failure: Currently euvolemic On torsemide at home Continue to manage Volume during HD Continue Coreg (7) Automatic implantable cardioverter-defibrillator in situ: (8) History of CVA (cerebrovascular accident): Continue aspirin (9) ESRD (end stage renal disease) on dialysis: Nephrology on board for HD Plan to get HD tomorrow (10) Anemia of renal disease: Hemoglobin stable at 10 Pt was bleeding last night from the dialysis port Monitor CBC Right Shoulder pain Xray of the shoulder showed no arthritis Continue Lidocaine prn DVT prophylaxis On Coumadin Admission and Anticipated Discharge Date Admission Date: September 03, 2019 Subjective Pt was seen and examined Lying in bed with no distress Pt said that she had 3 episode of diarrhea today She said that the stool is more loose now She said that today she had a mild abdominal discomfort Denies any chest pain, palpitation, and SOB Physical Exam Physical Exam: General- No acute distress Head- atraumatic Eyes- PERRL, EOMI, ENT- oropharynx clear Neck- supple, no JVD Lungs- Diminished BS Heart- regular rhythm; no murmur Abdomen- normal bowel sounds, soft, nontender Extremities- no calf tenderness, +edema, right shoulder tenderness Neuro- alert, oriented x 3; PERRL, EOMI; no facial palsy; no dysarthria Skin- warm & dry Results & Data ([facility]) Vital Signs (Past 12 Hours) Vital Signs Temp Pulse Pulse Pulse Resp BP BP 09/11/19 16:00 60 163/68 H 09/11/19 15:40 60 150/103 H 09/11/19 15:20 60 151/62 H 09/11/19 15:00 60 148/65 H 09/11/19 14:40 60 132/65 09/11/19 14:20 60 146/67 H 09/11/19 14:10 60 144/68 H 09/11/19 14:00 36.4 C L 60 09/11/19 08:00 36.7 C 60 18 155/59 H Pulse Ox 09/11/19 16:00 09/11/19 15:40 09/11/19 15:20 09/11/19 15:00 09/11/19 14:40 09/11/19 14:20 09/11/19 14:10 09/11/19 14:00 09/11/19 08:00 98
[2019-09-11] MEDS: WARFARIN SOD 4 MG TAB PO SCH (19:23)
[2019-09-11] MEDS: ATORVASTATIN 40 MG TAB PO SCH (21:20)
[2019-09-11] MEDS: INSULIN GLARGINE SOLOSTAR 100 UNITS/ML 3 ML PEN SQ SCH (22:16)
[2019-09-12] MEDS: VANCOMYCIN HCL 125 MG/2.5ML SOLN PO SCH ×2 (05:51→13:02)
[2019-09-12] MEDS: GUAIFENESIN/DEXTROM SYRUP 200MG/20MG 10ML UDC PO PRN ×2 (05:51→22:29)
[2019-09-12] MEDS: RASPBERRY SYRUP 5 ML UDP PO SCH ×4 (05:51→23:39)
[2019-09-12 05:58] LABS: Hematocrit (blood only) 29.8 % (37-47); Hemoglobin 9.6 g/dL (12.0-16.0); Mean Corpuscular Hemoglobin 32.9 pg (25-34); Mean Corpuscular Hgb Conc 32.2 g/dL (32-36); Mean Corpuscular Volume 102.1 fL (80-100); RDW Coefficient of Variation 16.3 % (11.5-14.5); RDW Standard Deviation 58.4 fL (36.4-46.3); Red Blood Count 2.92 M/uL (4.2-5.4); White Blood Count 4.38 K/uL (4.8-10.8)
[2019-09-12 06:09] LABS: Prothrombin Time 19.9 Seconds (9.0-12.0)
[2019-09-12 06:15] LABS: Mean Platelet Volume 11.4 fL (7.4-10.4); Platelet Count 51 K/uL (130-400)
[2019-09-12 06:37] LABS: BUN Creatinine Ratio 5.9 (10-20); Calcium 8.3 mg/dl (8.5-10.1); Creatinine Clr Calc Pharmacy 13.2 ml/min; Est GFR (African American) 16.4; Est GFR (Non-African American) 14.2; Potassium 3.8 mmol/L (3.5-5.1)
[2019-09-12] MEDS: INSULIN ASPART 100 UNITS/ML 3 ML PEN SC SCH ×4 (09:04→20:55)
[2019-09-12] MEDS: AMIODARONE 200 MG TAB PO SCH (09:05)
[2019-09-12] MEDS: HydrALAZINE TAB 50 MG TAB PO SCH ×3 (09:05→20:03)
[2019-09-12] MEDS: carvediloL 25 MG TAB PO SCH ×2 (09:06→20:02)
[2019-09-12] MEDS: TORSEMIDE 20 MG TAB PO SCH (09:06)
[2019-09-12] MEDS: ASPIRIN 81 MG ECTAB PO SCH (09:06)
[2019-09-12] MEDS: FLUTICASONE PROPIONATE NA SPR 16 GM BTL SCH (09:07)
[2019-09-12] MEDS: LACTOBACILLUS ACIDOPHILUS (FLORANEX) TAB PO SCH ×3 (09:07→20:04)
[2019-09-12] MEDS: FAMOTIDINE 20 MG TAB PO SCH (09:07)
[2019-09-12] MEDS: PANTOprazole 40 MG TAB PO SCH (09:08)
--- NOTE | 2019-09-12 11:21 | Pharmacy Report ---
Pharmacy Glycemic Short Note 2 - Date of Service September 12, 2019 - Glycemic Short BSG Results (Last 24 hours): 09/11/19 09/11/19 09/11/19 12:11 17:14 19:01 Glucose POC Glucose 247 H 142 H 125 H 09/11/19 09/12/19 09/12/19 21:58 01:44 05:42 Glucose 98 POC Glucose 172 H 140 H 09/12/19 08:08 Glucose POC Glucose 96 ASSESSMENT: 09/11 * BSGs have been much improved over the past 24 hours * She received 37 units of insulin yesterday (20 of this being basal) * Since fasting = 98 mg/dL today, I do not want her getting more than 20 units of basal * Patient received 39 units of insulin yesterday (20 of this being basal) * No change to causes of insulin resistance. Patient will receive HD today. * Fasting BSG = 203 mg/dL. It was 106 mg/dL yesterday and no changes have occurred. Will continue same basal for now, especially in the setting of hypoglycemia yesterday and HD today. * Postprandial BSGs lower yesterday so CR loosened this AM. Pre-lunch BSG elevated today but AM Novolog not given until ~1000. 09/10 * Patient received total of 33 units of insulin yesterday. Insulin requirements remain stable. * 20 units of basal * 13 units of bolus * Fasting BSG is at goal. No changes will be made to basal insulin. * Post prandial BSG slightly above goal. Will tighten carb coverage. * Last HD session was 09/09. PLAN FOR INPATIENT GLYCEMIC CONTROL: * Basal insulin - adjust to set dose of 20 units * Lantus 20 units qHS * Bolus insulin - no change * NovoLog per scale ACHS or Q6hrs while NPO * Goal Range: Low 120 mg/dL - High 150 mg/dL * Correction Factor: 25 mg/dL/unit * Nutritional / Prandial insulin per carb ratio of 1 unit per 9 grams CHO consumed
[2019-09-12] MEDS: WARFARIN SOD 4 MG TAB PO SCH (15:25)
--- NOTE | 2019-09-12 16:16 | Hospitalist Progress Note ---
Date of Service September 12, 2019 Assessment & Plan (1) C. difficile diarrhea: Abdominal Pain Likely C. difficile enterocolitis C. difficile testing positive for Tox B gene, negative for toxin Considering that patient has been on different antibiotics for over 7 days for treatment of pneumonia, persistent watery diarrhea is likely related to C. difficile. Will consider to increase Vanco to 250mg q6h since diarrhea persist after being on vanco 125 mg for the last few days KUB showed nonobstructive bowel gas pattern. Diarrhea improves (2) Cough: Patient has received antibiotics for over 7 days. Chest x-ray reported bibasilar linear densities which are improving and stated to be likely due to atelectasis. No leukocytosis. CT chest showed scattered platelike atelectatic change at both lung bases. No well-defined focal infiltrate in the basilar regions. Patchy groundglass infiltrative process right upper lung. Procalcitonin is 0.3 Based on patient's history, exam findings, patient had received total of 7 days of antibiotic treatment, no leukocytosis, procal of 0.3 recent Antibiotics had been discontinued Guaifenesin as needed cough Continue nebs as needed and wheezing supportive care Cough improves (3) Paroxysmal atrial fibrillation: (4) Supratherapeutic INR: Rate controlled on amiodarone and carvedilol Coumadin on hold due to supratherapeutic INR of 10 yesterday Got vitamin K p.o. on admission and INR went down to 1.9 Continue Comadin INR today is 2 (5) Thrombocytopenia: Chronic thrombocytopenia for which patient follows hematology Platelet 53 By admitting physician, there are plans for high-dose Decadron 40 mg daily for 4 days if platelet count drops less than 30 and possible bone marrow biopsy. Patient needs follow-up with esl professor on discharge Monitor CBC (6) Chronic systolic heart failure: Currently euvolemic On torsemide at home Continue to manage Volume during HD Continue Coreg (7) Automatic implantable cardioverter-defibrillator in situ: (8) History of CVA (cerebrovascular accident): Continue aspirin (9) ESRD (end stage renal disease) on dialysis: Nephrology on board for HD Last HD was yesterday HD day on , , Sat (10) Anemia of renal disease: Hemoglobin stable at 9.6 Monitor CBC Right Shoulder pain Xray of the shoulder showed no arthritis Continue Lidocaine prn DVT prophylaxis On Coumadin with INR 2 Admission and Anticipated Discharge Date Admission Date: September 03, 2019 Subjective Pt was seen and examined Lying in bed with no distress Pt said that she had about 10 to 15 episodes of diarrhea yesterday. She said that so far she had 4 episodes of BM today She said that she does not have any abdominal pain Denies any chest pain, palpitation and SOB Physical Exam Physical Exam: General- No acute distress Head- atraumatic Eyes- PERRL, EOMI, ENT- oropharynx clear Neck- supple, no JVD Lungs- Diminished BS Heart- regular rhythm; no murmur Abdomen- normal bowel sounds, soft, nontender Extremities- no calf tenderness, +edema, right shoulder tenderness Neuro- alert, oriented x 3; PERRL, EOMI; no facial palsy; no dysarthria Skin- warm & dry Results & Data ([facility] [place]) Vital Signs (Past 12 Hours) Vital Signs Temp Pulse Pulse Resp BP BP Pulse Ox 09/12/19 15:13 36.9 C 61 16 152/64 H 99 09/12/19 08:59 60 155/63 H 09/12/19 07:30 36.5 C 59 L 16 161/63 H 97
[2019-09-12] MEDS: VANCOMYCIN HCL 250 MG/5 ML SOLN PO SCH ×2 (18:06→23:39)
[2019-09-12] MEDS: ATORVASTATIN 40 MG TAB PO SCH (20:04)
[2019-09-12] MEDS: INSULIN GLARGINE SOLOSTAR 100 UNITS/ML 3 ML PEN SQ SCH (20:56)
[2019-09-13] MEDS: ACETAMINOPHEN 325 MG TAB PO PRN (00:24)
[2019-09-13] MEDS: RASPBERRY SYRUP 5 ML UDP PO SCH ×4 (05:20→23:51)
[2019-09-13] MEDS: VANCOMYCIN HCL 250 MG/5 ML SOLN PO SCH ×4 (05:21→23:51)
[2019-09-13] MEDS: PANTOprazole 40 MG TAB PO SCH (08:32)
[2019-09-13] MEDS: LACTOBACILLUS ACIDOPHILUS (FLORANEX) TAB PO SCH ×3 (08:32→21:06)
[2019-09-13] MEDS: carvediloL 25 MG TAB PO SCH ×2 (08:33→21:05)
[2019-09-13] MEDS: HydrALAZINE TAB 50 MG TAB PO SCH ×3 (08:33→21:06)
[2019-09-13] MEDS: ASPIRIN 81 MG ECTAB PO SCH (08:33)
[2019-09-13] MEDS: AMIODARONE 200 MG TAB PO SCH (08:33)
[2019-09-13] MEDS: TORSEMIDE 20 MG TAB PO SCH (08:33)
[2019-09-13] MEDS: FLUTICASONE PROPIONATE NA SPR 16 GM BTL SCH (08:34)
[2019-09-13] MEDS: FAMOTIDINE 20 MG TAB PO SCH (08:35)
[2019-09-13] MEDS: INSULIN ASPART 100 UNITS/ML 3 ML PEN SC SCH ×4 (08:41→21:12)
[2019-09-13] MEDS: WARFARIN SOD 4 MG TAB PO SCH (15:29)
--- NOTE | 2019-09-13 17:26 | Nephrology Progress Note ---
Date of Service September 13, 2019 Assessment & Plan (1) End-stage renal disease (ESRD): Patient with ESRD on HD TTS. for routine HD . cont 1.5 L daily fluid limit. However she is nowhere near this intake on I's and O's. >>>with low k>> will run on 4K bath Given her electrolyte issues recommend daily basic metabolic panel and phosphorus >>w/ lower phos consistently and I have put her binder on hold since she is eating so poorly -next dialysis tomorrow. (2) HTN (hypertension): BP is above target but improving with dialysis. Continue current regimen. (3) Anemia of renal disease: cont low-dose erythropoietin on dialysis . No heparin on dialysis due to chronic thrombocytopenia. (4) C. difficile diarrhea: On oral vancomycin and raspberry syrup. Diarrhea ongoing and no worse. Abdominal pain noted and will monitor; ischemic bowel on the differential given temporal relation to dialysis with this last episode; monitor for recurrent sx Admission and Anticipated Discharge Date Admission Date: September 03, 2019 Subjective Patient feels well today denies any shortness of breath. No vomiting or diarrhea. Review of Systems Review of Systems: All systems reviewed & are unremarkable except as noted in HPI & below Physical Exam 2 Physical Exam: General exam: Appears comfortable, no acute distress HEENT: Pupils are equal and reactive to light Neck: No JVD, neck is supple trachea is midline Respiratory system: Clear breath sounds bilaterally. Gastrointestinal: Abdomen is soft, non distended, non tender, bowel sounds are present CVS: Regular rate and rhythm. No murmurs, rubs or gallops Musculoskeletal: No joint or muscle tenderness Extremities: Non tender, no edema, peripheral pulses are present Neuro: Oriented, no tremors, no focal neurological deficits Skin: No rashes Access: Left forearm AV fistula with good bruit and bruising Results & Data ([facility]) Vital Signs (Past 12 Hours) Vital Signs Temp Pulse Pulse Resp BP Pulse Ox 09/13/19 15:07 36.5 C 60 18 155/69 H 97 09/13/19 13:58 150/72 H 09/13/19 09:45 117/65 09/13/19 07:40 36.5 C 60 18 191/82 H 97 Laboratory Results 09/12/19 05:42 (1) HTN (hypertension) Hypertension type: unspecified Qualified Code(s): I10 - Essential (primary) hypertension
--- NOTE | 2019-09-13 19:25 | Hospitalist Progress Note ---
Date of Service September 13, 2019 Assessment & Plan (1) C. difficile diarrhea: Abdominal Pain Likely C. difficile enterocolitis C. difficile testing positive for Tox B gene, negative for toxin Considering that patient has been on different antibiotics for over 7 days for treatment of pneumonia, persistent watery diarrhea is likely related to C. difficile. Vanco changed to 250mg q6h since diarrhea persist after being on vanco 125 mg for the last few days KUB showed nonobstructive bowel gas pattern. Diarrhea improves significantly (2) Cough: Patient has received antibiotics for over 7 days. Chest x-ray reported bibasilar linear densities which are improving and stated to be likely due to atelectasis. No leukocytosis. CT chest showed scattered platelike atelectatic change at both lung bases. No well-defined focal infiltrate in the basilar regions. Patchy groundglass infiltrative process right upper lung. Procalcitonin is 0.3 Based on patient's history, exam findings, patient had received total of 7 days of antibiotic treatment, no leukocytosis, procal of 0.3 recent Antibiotics had been discontinued Guaifenesin as needed cough Continue nebs as needed and wheezing supportive care Cough improves (3) Paroxysmal atrial fibrillation: (4) Supratherapeutic INR: Rate controlled on amiodarone and carvedilol Coumadin on hold due to supratherapeutic INR of 10 yesterday Got vitamin K p.o. on admission and INR went down to 1.9 Continue Comadin INR today is 2 (5) Thrombocytopenia: Chronic thrombocytopenia for which patient follows hematology Platelet 53 By admitting physician, there are plans for high-dose Decadron 40 mg daily for 4 days if platelet count drops less than 30 and possible bone marrow biopsy. Patient needs follow-up with consumer loan specialist on discharge Monitor CBC (6) Chronic systolic heart failure: Currently euvolemic On torsemide at home Continue to manage Volume during HD Continue Coreg (7) Automatic implantable cardioverter-defibrillator in situ: (8) History of CVA (cerebrovascular accident): Continue aspirin (9) ESRD (end stage renal disease) on dialysis: Nephrology on board for HD Next HD tomorrow HD day on , , Sat (10) Anemia of renal disease: Hemoglobin stable at 9.6 Monitor CBC Right Shoulder pain Xray of the shoulder showed no arthritis Continue Lidocaine prn DVT prophylaxis On Coumadin with INR 2 Disposition Will plan to Discharge tomorrow after HD Admission and Anticipated Discharge Date Admission Date: September 03, 2019 Subjective Pt was seen and examined Lying in bed with no distress Pt said that she feels much better today She said that her diarrhea improves significantly She said that she only has 3 episodes of diarrhea She would like to go home tomorrow after HD Denies any chest pain, palpitation, dizziness and SOB Physical Exam Physical Exam: General- No acute distress Head- atraumatic Eyes- PERRL, EOMI, ENT- oropharynx clear Neck- supple, no JVD Lungs- Diminished BS Heart- regular rhythm; no murmur Abdomen- normal bowel sounds, soft, nontender Extremities- no calf tenderness, +edema, right shoulder tenderness Neuro- alert, oriented x 3; PERRL, EOMI; no facial palsy; no dysarthria Skin- warm & dry Results & Data ([facility]) Vital Signs (Past 12 Hours) Vital Signs Temp Pulse Pulse Resp BP Pulse Ox 09/13/19 15:07 36.5 C 60 18 155/69 H 97 09/13/19 13:58 150/72 H 09/13/19 09:45 117/65 09/13/19 07:40 36.5 C 60 18 191/82 H 97
[2019-09-13] MEDS: ATORVASTATIN 40 MG TAB PO SCH (21:05)
[2019-09-13] MEDS: INSULIN GLARGINE SOLOSTAR 100 UNITS/ML 3 ML PEN SQ SCH (21:11)
[2019-09-13] MEDS: GUAIFENESIN/DEXTROM SYRUP 200MG/20MG 10ML UDC PO PRN (22:29)
[2019-09-14] MEDS: ACETAMINOPHEN 325 MG TAB PO PRN ×2 (01:39→12:44)
[2019-09-14] MEDS: RASPBERRY SYRUP 5 ML UDP PO SCH ×3 (05:26→18:46)
[2019-09-14] MEDS: VANCOMYCIN HCL 250 MG/5 ML SOLN PO SCH ×3 (05:26→18:46)
[2019-09-14] MEDS ORDERED: SODIUM CHLORIDE 0.9% 1000ML 1,000 ML IV PRN (07:00)
[2019-09-14] MEDS ORDERED: HEPARIN SOD (PORCINE) 1000 UNIT/ML 10 ML VIAL IV ONE (07:00)
[2019-09-14 08:26] LABS: Hematocrit (blood only) 30.7 % (37-47); Mean Corpuscular Hemoglobin 32.9 pg (25-34); Mean Corpuscular Hgb Conc 32.6 g/dL (32-36); Mean Platelet Volume 12.1 fL (7.4-10.4); Platelet Count 56 K/uL (130-400); RDW Coefficient of Variation 16.5 % (11.5-14.5); RDW Standard Deviation 60.1 fL (36.4-46.3); Red Blood Count 3.04 M/uL (4.2-5.4); White Blood Count 3.94 K/uL (4.8-10.8)
[2019-09-14 08:32] LABS: INR 2.8 (0.9-1.1); Prothrombin Time 26.6 Seconds (9.0-12.0)
[2019-09-14] MEDS: TORSEMIDE 20 MG TAB PO SCH (08:32)
[2019-09-14] MEDS: FAMOTIDINE 20 MG TAB PO SCH (08:33)
[2019-09-14] MEDS: LACTOBACILLUS ACIDOPHILUS (FLORANEX) TAB PO SCH ×2 (08:33→13:35)
[2019-09-14] MEDS: ASPIRIN 81 MG ECTAB PO SCH (08:33)
[2019-09-14] MEDS: PANTOprazole 40 MG TAB PO SCH (08:33)
[2019-09-14] MEDS: FLUTICASONE PROPIONATE NA SPR 16 GM BTL SCH (08:34)
[2019-09-14] MEDS: INSULIN ASPART 100 UNITS/ML 3 ML PEN SC SCH ×3 (08:37→18:43)
[2019-09-14 09:09] LABS: BUN Creatinine Ratio 10.9 (10-20); Calcium 9.1 mg/dl (8.5-10.1); Creatinine Clr Calc Pharmacy 8.6 ml/min; Est GFR (African American) 8.7; Est GFR (Non-African American) 7.5; Potassium 3.8 mmol/L (3.5-5.1)
--- NOTE | 2019-09-14 12:36 | Pharmacy Report ---
Glycemic Control Progress Note - Date of Service September 14, 2019 - Scope Glycemic Pharmacist consulted for glycemic control to write orders per [facility] inpatient glycemic control protocol. - Objective Accuchecks BSG(last 24 hours):: 09/13/19 09/13/19 09/14/19 17:11 20:32 07:55 Glucose 92 POC Glucose 112 H 160 H 09/14/19 09/14/19 08:25 12:04 Glucose POC Glucose 100 H 108 H HbA1c:: Hemoglobin A1c 7.6 % (4.5-5.6) H 09/04/19 05:11 - Recent Pertinent Medications The patient is currently receiving: * Basal insulin: Lantus 20 units every 24 hours * Correctional Insulin: Novolog Correction per scale ACHS Goal Range: Low 100 mg/dL - High 140 mg/dL Correction Factor: 25 mg/dL/unit * Prandial insulin: Per carb ratio of 1 unit per 9 grams CHO consumed - Outpatient Anti-Diabetic Meds Lantus 16 units SQ qAM plus Novolog - Assessment & Plan ASSESSMENT: * See progress note from 09/06/2019 for more background info, in short: * Pt receiving SQ basal bolus insulin regimen for hyperglycemia secondary to baseline DM (outpatient regimen on hold). * Patient is currently receiving an average of ~40 units of insulin per day * 20 units of basal insulin * 23 units of prandial/correctional insulin * BSGs ranging 112 - 160 mg/dl over the past 24hrs * Changes needed to insulin regimen: * AM Fasting BSG = 100 mg/dl. This is in goal range for patient based on inpatient targets and co-morbidities. Therefore Basal insulin can be continued. * Post-prandial BSGs spike out of range a little. Tighten CR slightly. * Total daily dose = ~40 units. PLAN FOR INPATIENT GLYCEMIC CONTROL: * Continuing Lantus 20 units SQ HS * Continuing correction factor of 25 mg/dl/unit * TIGHTENING carb ratio to 1 unit per 8 grams CHO consumed * Continuing goal range of Low 100 mg/dL - High 140 mg/dL RECOMMENDATIONS FOR DISCHARGE: * Patient has tolerated at least 20 units of basal every day while here. Reasonable to increase home Lantus to 20 units IF patient has diet with the same number of carbohydrates or more carbohydrates at home. If patient eats less at home, would recommend continuing same Lantus regimen of 16 units HS. * Could schedule 5 units of Novolog with meals if patient willing. Thank you.
[2019-09-14] MEDS: AMIODARONE 200 MG TAB PO SCH (12:44)
[2019-09-14] MEDS: carvediloL 25 MG TAB PO SCH (12:44)
[2019-09-14] MEDS: HydrALAZINE TAB 50 MG TAB PO SCH ×2 (12:44→13:32)
[2019-09-14] MEDS: GUAIFENESIN/DEXTROM SYRUP 200MG/20MG 10ML UDC PO PRN (14:14)
[2019-09-14] MEDS: WARFARIN SOD 4 MG TAB PO SCH (15:40)
--- NOTE | 2019-09-14 16:56 | Hospitalist Progress Note ---
Date of Service September 14, 2019 Assessment & Plan (1) C. difficile diarrhea: Abdominal Pain Likely C. difficile enterocolitis C. difficile testing positive for Tox B gene, negative for toxin Considering that patient has been on different antibiotics for over 7 days for treatment of pneumonia, persistent watery diarrhea is likely related to C. difficile. Vanco changed to 250mg q6h since diarrhea persist after being on vanco 125 mg for the last few days KUB showed nonobstructive bowel gas pattern. Continue Vanco 250 mg q6h to complete the course Diarrhea improves significantly (2) Cough: Patient has received antibiotics for over 7 days. Chest x-ray reported bibasilar linear densities which are improving and stated to be likely due to atelectasis. No leukocytosis. CT chest showed scattered platelike atelectatic change at both lung bases. No well-defined focal infiltrate in the basilar regions. Patchy groundglass infiltrative process right upper lung. Procalcitonin is 0.3 Based on patient's history, exam findings, patient had received total of 7 days of antibiotic treatment, no leukocytosis, procal of 0.3 recent Antibiotics had been discontinued Guaifenesin as needed cough Continue nebs as needed and wheezing supportive care Cough improves (3) Paroxysmal atrial fibrillation: (4) Supratherapeutic INR: Rate controlled on amiodarone and carvedilol Coumadin on hold due to supratherapeutic INR of 10 yesterday Got vitamin K p.o. on admission and INR went down to 1.9 Continue Coumadin INR today is 2.8 (5) Thrombocytopenia: Chronic thrombocytopenia for which patient follows hematology Platelet 58 By admitting physician, there are plans for high-dose Decadron 40 mg daily for 4 days if platelet count drops less than 30 and possible bone marrow biopsy. Patient needs follow-up with certified low vision therapist on discharge Stable (6) Chronic systolic heart failure: Currently euvolemic On torsemide at home Continue to manage Volume during HD Continue Coreg (7) Automatic implantable cardioverter-defibrillator in situ: (8) History of CVA (cerebrovascular accident): Continue aspirin (9) ESRD (end stage renal disease) on dialysis: Nephrology on board for HD HD done today HD day on , Fri (10) Anemia of renal disease: Hemoglobin stable at 10 Monitor CBC Right Shoulder pain Xray of the shoulder showed no arthritis Continue Lidocaine prn Pain improves DVT prophylaxis On Coumadin with INR 2.8 Disposition Discharge home today Follow up with your PCP Williams Loaiza Admission and Anticipated Discharge Date Admission Date: September 03, 2019 Subjective Pt was seen and examined Lying in bed with no distress getting HD Pt said that she feels much better She said that the diarrhea improved significantly She said that she only has a large loose stool today She said that the other 2 BM were like a smear she said that she able to control her bowel now and no accident Denies any chest pain, palpitation, abdominal, dizziness and SOB Physical Exam Physical Exam: General- No acute distress Head- atraumatic Eyes- PERRL, EOMI, ENT- oropharynx clear Neck- supple, no JVD Lungs- Diminished BS Heart- regular rhythm; no murmur Abdomen- normal bowel sounds, soft, nontender Extremities- no calf tenderness, +edema Neuro- alert, oriented x 3; PERRL, EOMI; no facial palsy; no dysarthria Skin- warm & dry Results & Data ([facility]) Vital Signs (Past 12 Hours) Vital Signs Temp Pulse Pulse Pulse Resp BP BP 09/14/19 15:10 36.8 C 63 18 144/65 H 09/14/19 12:35 36.6 C 60 60 169/62 H 169/62 H 09/14/19 12:20 60 160/66 H 09/14/19 12:00 60 156/63 H 09/14/19 11:40 61 132/50 L 09/14/19 11:20 60 151/61 H 09/14/19 10:40 60 145/63 H 09/14/19 10:24 61 134/67 09/14/19 10:20 60 129/54 L 09/14/19 10:00 62 119/50 L 09/14/19 09:40 60 129/54 L 09/14/19 09:20 60 133/45 L 09/14/19 09:00 36.6 C 71 71 159/78 H 09/14/19 07:11 36.5 C 63 16 170/67 H Pulse Ox 09/14/19 15:10 96 09/14/19 12:35 09/14/19 12:20 09/14/19 12:00 09/14/19 11:40 09/14/19 11:20 09/14/19 10:40 09/14/19 10:24 09/14/19 10:20 09/14/19 10:00 09/14/19 09:40 09/14/19 09:20 09/14/19 09:00 09/14/19 07:11 96
--- NOTE | 2019-09-14 17:26 | Nephrology Progress Note ---
Date of Service September 14, 2019 Assessment & Plan (1) End-stage renal disease (ESRD): Patient with ESRD on HD TTS. for routine HD . cont 1.5 L daily fluid limit. However she is nowhere near this intake on I's and O's. >>>with low k>> will run on 4K bath Given her electrolyte issues recommend daily basic metabolic panel and phosphorus >>w/ lower phos consistently and I have put her binder on hold since she is eating so poorly -Tolerating HD well today. From renal stand point can be discharged to continue HD as out pt. (2) HTN (hypertension): BP is above target but improving with dialysis. Continue current regimen. (3) Anemia of renal disease: cont low-dose erythropoietin on dialysis . No heparin on dialysis due to chronic thrombocytopenia. (4) C. difficile diarrhea: On oral vancomycin and raspberry syrup. Diarrhea ongoing and no worse. Abdominal pain noted and will monitor; ischemic bowel on the differential given temporal relation to dialysis with this last episode; monitor for recurrent sx Admission and Anticipated Discharge Date Admission Date: September 03, 2019 Subjective Patient seen and examined on dialysis. She denies any SOB. She is eager to be discharged. Still has cough Review of Systems Review of Systems: All systems reviewed & are unremarkable except as noted in HPI & below Physical Exam Physical Exam: General exam: Appears comfortable, no acute distress HEENT: Pupils are equal and reactive to light Neck: No JVD, neck is supple trachea is midline Respiratory system: Clear breath sounds bilaterally. Gastrointestinal: Abdomen is soft, non distended, non tender, bowel sounds are present CVS: Regular rate and rhythm. No murmurs, rubs or gallops Musculoskeletal: No joint or muscle tenderness Extremities: Non tender, no edema, peripheral pulses are present Neuro: Oriented, no tremors, no focal neurological deficits Skin: No rashes Access: left FA AVF, good bruit Results & Data ([facility]) Vital Signs (Past 12 Hours) Vital Signs Temp Pulse Pulse Pulse Resp BP BP 09/14/19 15:10 36.8 C 63 18 144/65 H 09/14/19 12:35 36.6 C 60 60 169/62 H 169/62 H 09/14/19 12:20 60 160/66 H 09/14/19 12:00 60 156/63 H 09/14/19 11:40 61 132/50 L 09/14/19 11:20 60 151/61 H 09/14/19 10:40 60 145/63 H 09/14/19 10:24 61 134/67 09/14/19 10:20 60 129/54 L 09/14/19 10:00 62 119/50 L 09/14/19 09:40 60 129/54 L 09/14/19 09:20 60 133/45 L 09/14/19 09:00 36.6 C 71 71 159/78 H 09/14/19 07:11 36.5 C 63 16 170/67 H Pulse Ox 09/14/19 15:10 96 09/14/19 12:35 09/14/19 12:20 09/14/19 12:00 09/14/19 11:40 09/14/19 11:20 09/14/19 10:40 09/14/19 10:24 09/14/19 10:20 09/14/19 10:00 09/14/19 09:40 09/14/19 09:20 09/14/19 09:00 09/14/19 07:11 96 Laboratory Results 09/14/19 07:55 09/14/19 07:55 WBC 3.94 L RBC 3.04 L MCV 101.0 H MCH 32.9 MCHC 32.6 RDW Std Deviation 60.1 H RDW Coeff of Jacobo 16.5 H Plt Count 56 L MPV 12.1 H (1) HTN (hypertension) Hypertension type: unspecified Qualified Code(s): I10 - Essential (primary) hypertension
--- NOTE | 2019-09-15 11:46 | Discharge Summary ---
Date of Service September 14, 2019 Admission HPI Per Admitting Provider CHIEF COMPLAINT: Ongoing cough, nausea and diarrhea. HISTORY OF PRESENT ILLNESS: This is a 73-year-old female with past medical history significant for end-stage renal disease on hemodialysis, paroxysmal atrial fibrillation on amiodarone, Coreg and Coumadin, chronic thrombocytopenia, type 2 diabetes, history of PAF,, history of chronic systolic heart failure with EF of 40-45%, peripheral vascular disease, hyperlipidemia, secondary hyperparathyroidism, left bundle branch block, hypertension, GERD, senile osteoporosis, anemia of chronic kidney disease, depression, history of biventricular ICDs, anxiety, lives with her cousin, walks with the help of a walker, comes because of ongoing cough for several days now. The patient treated with Augmentin for possible for pneumonia and she also is on doxycycline for left upper extremity cellulitis which seems to be improved. But cough is not getting better. Also lately in the last 2 days she also developed nausea, vomited a few times and also had diarrhea a few episodes. Denies any blood in stools or black stools. No abdominal pain. Currently resting comfortably. States she is feeling weak and tired, not eaten much since yesterday but right now she wants to have some broth. Denies any chest pain. She has some dizziness while walking. No headache, no blurred vision, somewhat hard of hearing. No earaches. Once in a while she gets runny nose. She has some sore throat. When she had nebs today in the ER, she had some coughing up of some phlegm. She still makes some urine but denies any burning micturition. Because of ongoing illness and not getting better and she was sent to the ER by PCP. In the ER, she is afebrile, no leukocytosis. INR was 1.3, platelets in the 48. Flu was negative. Chest x-ray, no obvious infiltrates. EKG, paced rhythm. Hemodynamics are stable. Admission Exam Per Admitting Provider GENERAL: The patient is moderate built, not in acute distress. VITAL SIGNS: Temperature 36.8, pulse 60, respiratory rate 20, blood pressure 115/53, oxygen 96% on 2 liters. HEENT: No pallor, no icterus. Pupils equal, round, reactive to light. NECK: No JVD, no neck masses, no carotid bruits. CARDIOVASCULAR: S1, S2 heard, regular rate and rhythm, no murmur, no gallop. RESPIRATORY SYSTEM: Normal AP diameter. No accessory muscle use. No wheezing, no crackles. ABDOMEN: Soft, bowel sounds present, nontender. No distention. CENTRAL NERVOUS SYSTEM: Alert and oriented. Obeys commands. Moves all extremities. EXTREMITIES: No edema, no erythema seen. Principal Diagnosis C. difficile diarrhea: Abdominal Pain Cough: Paroxysmal atrial fibrillation: SuThrombocytopenia: Chronic systolic heart failure: Automatic implantable cardioverter-defibrillator in situ: History of CVA (cerebrovascular accident): ESRD (end stage renal disease) on dialysis: Anemia of renal disease: Discharge Exam General- No acute distress Head- atraumatic Eyes- PERRL, EOMI, ENT- oropharynx clear Neck- supple, no JVD Lungs- Diminished BS Heart- regular rhythm; no murmur Abdomen- normal bowel sounds, soft, nontender Extremities- no calf tenderness, +edema Neuro- alert, oriented x 3; PERRL, EOMI; no facial palsy; no dysarthria Skin- warm & dry Discharge Data Allergies Allergy/AdvReac Type Severity Reaction Status Date / Time adhesive Allergy Unknown RXN TO Verified 09/03/19 19:28 ADHESIVE ON NITRO PATCH strawberry Allergy Unknown EDEMA OF Verified 09/03/19 19:29 FACE /LIPS /TONGUE DESIREE Inhibitors AdvReac Mild COUGH Verified 09/03/19 19:28 diphenhydramine AdvReac Mild VERY WEAK, Verified 09/03/19 19:28 CHF lisinopril AdvReac Mild COUGH Verified 09/03/19 19:28 nitroglycerin AdvReac Mild HEADACHE/NA Verified 09/03/19 19:28 USEA Sulfa (Sulfonamide AdvReac Mild "KNOCKS ME Verified 09/03/19 19:28 Antibiotics) OUT" amlodipine AdvReac Unknown RETAIN Verified 09/03/19 19:28 FLUID Consultations 09/03/19 19:45 ED Decision to Admit Stat 09/04/19 01:01 Consult Case Management - Discharge Planning Routine 09/04/19 08:00 Consult Nephrology Routine Ordered Studies 09/04/19 01:01 US gallbladder Urgent 09/07/19 11:09 CT chest wo con Stat XR chest 1V portable HISTORY: SEPSIS COMPARISON: Chest 04/27/2019. FINDINGS: A few bibasilar linear densities have improved. This favors resolving atelectasis. Calcified granulomas within the left lung base, unchanged. The heart remains moderately enlarged. No pleural effusions. No pneumothorax. No evidence for pulmonary edema. Left-sided pacemaker/defibrillator is again noted. IMPRESSION: 1. Stable cardiomegaly. 2. Improvement in the bibasilar linear densities suggesting resolving atelectasis. ACT 112: Negative or not required by law. Electronically signed by: Cristian Renteria M.D. 09/03/2019 6:27 PM Dictated: 09/03/191825 Transcribed: 09/03/191825 ABDOMINAL ULTRASOUND, RIGHT UPPER QUADRANT HISTORY: elevated lft, nausea.. COMPARISON: Abdomen and pelvis CT 10/31/2018. FINDINGS: Pancreas: The pancreas demonstrates a normal echotexture. Liver: Unremarkable. Small amount of perihepatic ascites. Gallbladder: Sludge and stones within the gallbladder. The gallbladder wall is at the upper limits of normal measuring 3 mm. CBD: 6 mm. Right kidney: No hydronephrosis. IMPRESSION: 1. Stones and sludge within the gallbladder. Gallbladder wall is at the upper limits of normal measuring 3 mm. 2. Normal caliber common bile duct. 3. Small amount of ascites. ACT 112: Negative or not required by law. Electronically signed by: Cristian Renteria M.D. 09/04/2019 7:48 AM Dictated: 09/04/19 0745 Transcribed: 09/04/19744 XR chest 1V portable HISTORY: 74 years-old Female Cough. Reeval acute cough COMPARISON: Chest radiograph 09/03/2019 TECHNIQUE: Portable AP view of the chest FINDINGS: Moderate cardiomegaly. Unchanged left subclavian pacer/AICD. Calcified plaque of the thoracic aortic arch. Mild chronic interstitial coarsening with unchanged linear bibasilar subsegmental densities. No pneumothorax, pleural effusion, overt pulmonary edema or new airspace consolidation. Degenerative changes of the shoulders and spine. IMPRESSION: 1. Cardiomegaly without overt pulmonary edema. 2. Unchanged linear bibasilar opacities suggestive of scarring/atelectasis. ACT 112: Negative or not required by law. The above report was generated using voice recognition software. It may contain grammatical, syntax or spelling errors. Electronically signed by: Elvis Camacho M.D. 09/06/2019 2:51 PM Dictated: 09/06/19 1444 Transcribed: 09/06/[address] chest wo con CT DOSE: 265.15 mGy.cm HISTORY: Dyspnea Persistent cough, SOB, better eval basilar opaciti TECHNIQUE: Multiaxial CT images of the chest were performed without contrast. A dose lowering technique was utilized adhering to the principles of ALARA. COMPARISON: Ultrasound 09/04/2019. Chest series 09/06/2019 FINDINGS: bibasilar findings of scattered atelectasis. No well-defined focal infiltrative process. Minimal groundglass changes right pulmonary apex. 6 minimal at millimeters nodular density right middle lobe with an additional 5 mm nodular density anterior aspect right middle lobe. Cardiomegaly. Small pericardial effusion with a maximum thickness of 1 cm. Mild body wall anasarca. Upper abdominal ascites somewhat increased from the prior ultrasound. IMPRESSION: 1. Scattered platelike atelectatic change at both lung bases. 2.. No well-defined focal infiltrate in the basilar regions. 3. Patchy groundglass infiltrative process right upper lung. 4. Low suspicion nodularity right middle lobe. 5. Upper abdominal ascites somewhat progressive compared to the patient's prior ultrasound. 6. Cardiomegaly with a small pericardial effusion. 7. Mild body wall anasarca. ACT 112: Negative or not required by law. The above report was generated using voice recognition software. It may contain grammatical, syntax or spelling errors. Electronically signed by: Isaac Marr M.D. 09/07/2019 12:19 PM Dictated: 09/07/19 1213 Transcribed: 09/07/19 1213 XR shoulder RT min 2V routine CLINICAL HISTORY: shoulder pain COMPARISON: None. DISCUSSION: No acute fractures or dislocations are visualized. There mild d egenerative changes of the AC joint. IMPRESSION: No fractures or dislocations identified. ACT 112: Negative or not required by law. Electronically signed by: Tex Sanders M.D. 09/09/2019 10:14 AM Dictated: 09/09/19 1013 Transcribed: 09/09/19 1013 XR KUB/Abdomen 1 view CLINICAL HISTORY: Abdominal pain COMPARISON STUDY: CT scan dated 10/31/2018 FINDINGS: There is no pathologic bowel dilatation. There are upper abdominal vascular calcifications. Pelvic basin calcifications likely represent phleboliths. Degenerative changes are present within the lumbar spine. There are postsurgical changes of a bipolar left hip arthroplasty. IMPRESSION: Nonobstructive bowel gas pattern. ACT 112: Negative or not required by law. Electronically signed by: Tex Sanders M.D. 09/10/2019 2:06 PM Dictated: 09/10/191404 Transcribed: 09/10/19 140 Hospital Course (1) C. difficile diarrhea: Abdominal Pain Likely C. difficile enterocolitis C. difficile testing positive for Tox B gene, negative for toxin Considering that patient has been on different antibiotics for over 7 days for treatment of pneumonia, persistent watery diarrhea is likely related to C. difficile. Vanco changed to 250mg q6h since diarrhea persist after being on vanco 125 mg for the last few days KUB showed nonobstructive bowel gas pattern. Continue Vanco 250 mg q6h to complete the course Diarrhea improves significantly (2) Cough: Patient has received antibiotics for over 7 days. Chest x-ray reported bibasilar linear densities which are improving and stated to be likely due to atelectasis. No leukocytosis. CT chest showed scattered platelike atelectatic change at both lung bases. No w ell-defined focal infiltrate in the basilar regions. Patchy groundglass infiltrative process right upper lung. Procalcitonin is 0.3 Based on patient's history, exam findings, patient had received total of 7 days of antibiotic treatment, no leukocytosis, procal of 0.3 recent Antibiotics had been discontinued Guaifenesin as needed cough Continue nebs as needed and wheezing supportive care Cough improves (3) Paroxysmal atrial fibrillation: (4) Supratherapeutic INR: Rate controlled on amiodarone and carvedilol Coumadin on hold due to supratherapeutic INR of 10 yesterday Got vitamin K p.o. on admission and INR went down to 1.9 Continue Coumadin INR today is 2.8 (5) Thrombocytopenia: Chronic thrombocytopenia for which patient follows hematology Platelet 58 By admitting physician, there are plans for high-dose Decadron 40 mg daily for 4 days if platelet count drops less than 30 and possible bone marrow biopsy. Patient needs follow-up with matchbook maker on discharge Stable (6) Chronic systolic heart failure: Currently euvolemic On torsemide at home Continue to manage Volume during HD Continue Coreg (7) Automatic implantable cardioverter-defibrillator in situ: (8) History of CVA (cerebrovascular accident): Continue aspirin (9) ESRD (end stage renal disease) on dialysis: Nephrology on board for HD HD done today HD day on Fri (10) Anemia of renal disease: Hemoglobin stable at 10 Monitor CBC Right Shoulder pain Xray of the shoulder showed no arthritis Continue Lidocaine prn Pain improves DVT prophylaxis On Coumadin with INR 2.8 Disposition Discharge home today Follow up with your PCP Williams Loaiza Total Time Total Time Spent Total Time Spent (In Minutes): 35 minutes Total Time Includes: Examination of the Patient, Discharge Planning, Medication Reconciliation, Communication With Other Providers and Other Discharge Plan Discharge Items Patient Disposition: Home - Home Health Services Reason For Visit: COUGH, N/D, WEAKNESS Discharge Diagnosis: C. difficile diarrhea: Abdominal Pain Cough: Paroxysmal atrial fibrillation: SuThrombocytopenia: Chronic systolic heart failure: Automatic implantable cardioverter-defibrillator in situ: History of CVA (cerebrovascular accident): ESRD (end stage renal disease) on dialysis: Anemia of renal disease: Activity: Resume your previous activity Non-emergency contact: Primary Care Provider and Manager Ob Call non-emergency contact if: you have any medication questions and your temperature is above 101 Follow-up/Referrals: Zeynep Johnson MD [Primary Care Provider] - 09/16/19 2:00 pm Diet: Dialysis Renal Addtl Attending Provider Instructions: Follow up with your primary care provider Dr. Byrnes within 1 week Follow up with your nephrology Continue your dialysis (Next dialysis on ) Follow up with the coumadin clinic to monitor your PT/INR (INR 2.8 today ) Check BMP and phosphorus in 1 week to monitor your electrolytes Complete the course of oral vancomycin Please hold your phosphate binder since your phosphorus levelis low Fall precaution Pending Studies at Discharge: No Stand-Alone Forms: My [employer], Smoking Cessation Medications and DC Order Prescriptions: New vancomycin 250 mg capsule 250 mg PO Q6H 10 Days Qty: 40 RF: 0 Continued atorvastatin 40 mg tablet 40 mg PO HS RF: 0 carvedilol 25 mg tablet 50 mg PO BID RF: 0 torsemide 20 mg tablet 20 mg PO QAM RF: 0 amiodarone 200 mg tablet 200 mg PO QAM RF: 0 insulin aspart U-100 [Novolog Flexpen U-100 Insulin] 100 unit/mL (3 mL) Insulin Pen 0 unit SUBCUT UD RF: 0 Lantus Solostar U-100 Insulin 100 unit/mL (3 mL) insulin pen 16 units subcut PM RF: 0 warfarin 4 mg tablet 4 mg PO DAILY RF: 0 hydralazine 50 mg tablet 50 mg PO TID RF: 0 lorazepam [Ativan] 0.5 mg tablet 0.5 mg PO TID PRN (Reason: Anxiety) RF: 0 polyethylene glycol 3350 [Miralax] 17 gram Powder In Packet 17 g PO DAILY PRN (Reason: Constipation) RF: 0 ondansetron HCl [Zofran] 4 mg Tablet 4 mg PO Q8H PRN (Reason: Nausea) RF: 0 acetaminophen 500 mg Tablet 1,000 mg PO Q6H PRN (Reason: Outbreak) RF: 0 lidocaine-prilocaine 2.5-2.5 % Cream 1 applic topical UD RF: 0 famotidine [Pepcid] 20 mg tablet 20 mg PO DAILY RF: 0 omeprazole 20 mg capsule,delayed release(DR/EC) 40 mg PO DAILY RF: 0 magnesium citrate Solution 120 ml PO DAILY PRN (Reason: Constipation) RF: 0 albuterol sulfate 90 mcg/actuation HFA aerosol inhaler 2 puff INHALATION Q4 PRN (Reason: Shortness Of Breath Or Wheezing) RF: 0 Culturelle 10 billion cell Capsule 1 cap PO TID RF: 0 fluticasone propionate [Flonase Allergy Relief] 50 mcg/actuation Ribera,Suspension 2 spray INTRANASAL DAILY RF: 0 docusate sodium 100 mg Tablet 100 mg PO DAILY RF: 0 aspirin [Aspirin Low Dose] 81 mg Tablet,Delayed Release (Dr/Ec) 81 mg PO DAILY RF: 0 Discontinued calcium acetate(phosphat bind) 667 mg capsule 1 cap PO TIDM RF: 0 amoxicillin-pot clavulanate 400-57 mg/5 mL suspension for reconstitution 3.125 ml/kg PO DAILY RF: 0 doxycycline hyclate 100 mg tablet 100 mg PO BID RF: 0 Discharge Orders: Discharge Order (Routine); Ordered 09/14/19 Ordered By: Nico Rodriges/Other Patient Handouts: C Diff Admission Data Admit Date/Time: 09/03/19 23:44 Attending Provider: Nico Mclaughlin Admit Provider: Germán Jamison Primary Care Provider: Zeynep Johnson Other Providers: Germán Jamison ; Akiko Liu ; Melissa Boyer I. Other Interventions: Discharge Summary Assessment (RN) Last Done: 09/14/19 17:45 DC Date/Time DO NOT enter until pt leaves facility: 09/14/19 19:14
== END 2019-09-14 19:14 | disposition home health service (06) | DRG 371 ==
LOC: ED 16:36 → 4W 23:44 → SUATTDRO 23:44 → 4W 09-04 00:19 → 3W 09-08 12:20

== ENCOUNTER 2020-03-19 09:40 | Inpatient (IN) ==
[2020-03-19] MEDS ORDERED: ONDANSETRON INJ 2 MG/ML 2 ML VIAL IV STA (10:55)
[2020-03-19 11:04] LABS: Hematocrit (blood only) 34.5 % (37-47); Hemoglobin 11.1 g/dL (12.0-16.0); Mean Corpuscular Hemoglobin 32.4 pg (25-34); Mean Corpuscular Hgb Conc 32.2 g/dL (32-36); Mean Corpuscular Volume 100.6 fL (80-100); Mean Platelet Volume 12.1 fL (7.4-10.4); Platelet Count 73 K/uL (130-400); RDW Coefficient of Variation 14.8 % (11.5-14.5); RDW Standard Deviation 54.5 fL (36.4-46.3); Red Blood Count 3.43 M/uL (4.2-5.4); White Blood Count 8.61 K/uL (4.8-10.8)
[2020-03-19 11:20] LABS: BUN Creatinine Ratio 6.4 (10-20); Bilirubin,Total 1.1 mg/dl (0.2-1); Calcium 9.5 mg/dl (8.5-10.1); Creatinine Clr Calc Pharmacy 11.2 ml/min; Est GFR (African American) 10.3; Est GFR (Non-African American) 8.9; Potassium 4.1 mmol/L (3.5-5.1)
[2020-03-19 11:23] LABS: Basophils # (auto) 0.01 K/uL (0-0.2); Basophils % (auto) 0.1 %; Eosinophils % (auto) 1.2 %; Immature Granulocytes # (auto) 0.03 K/uL (0.00-0.02); Immature Granulocytes % (auto) 0.3 %; Lymphocytes # (auto) 0.66 K/uL (1.2-3.4); Lymphocytes % (auto) 7.7 %; Monocytes # (auto) 0.73 K/uL (0.11-0.59); Monocytes % (auto) 8.5 %; Neutrophils # (auto) 7.08 K/uL (1.4-6.5); Neutrophils % (auto) 82.2 %
[2020-03-19] MEDS ORDERED: MoRPHine SULFATE 2 MG/ML CARP IV STA (11:38)
[2020-03-19] MEDS ORDERED: METOCLOPRAMIDE HCL INJ 5 MG/ML 2 ML VIAL IV ONE (11:38)
[2020-03-19] MEDS ORDERED: IOVERSOL 100ml IV ONE (11:49)
--- NOTE | 2020-03-19 12:31 | CT Scan Report ---
ABDOMEN AND PELVIS CT WITH IV CONTRAST CT DOSE: 438.65 mGy.cm HISTORY: Acute generalized abdominal pain with nausea and vomiting dialysis pt, abd pain, n/v TECHNIQUE: Multiaxial CT images of the abdomen and pelvis were performed following the IV administrat ion of 60 cc of Optiray 320, A dose lowering technique was utilized adhering to the principles of AL CARLOS. COMPARISON STUDY: CT abdomen and pelvis 10/31/2018 FINDINGS: Trace pleural effusions. Minimal linear subsegmental bibasilar atelectasis. No pneumatosis or pneumop eritoneum. Cardiomegaly. Partially imaged pacer leads. Small pericardial effusion. Spleen measures th e upper limits of normal in size at 13 cm. Moderate pancreatic atrophy. Mild left adrenal gland thick ening. Normal right adrenal gland. Cholelithiasis. Heterogeneity of the liver with increased attenuat ion of the left hepatic lobe adjacent to the koko hepatis, likely secondary to shunting. There is qu estioned marginal nodularity of the liver. Patency of the hepatic and portal veins. There is cortical thinning with mild atrophy of the bilateral kidneys. No obstructive uropathy. Urina ry bladder wall thickening with partial distention. Pelvic structures are not well visualized seconda ry to streak artifact from left hip total joint arthroplasty. Prior hysterectomy. Plaque the abdominal aorta without aneurysm. No adenopathy. Distended fluid-filled distal esophagus w ith mild esophageal wall thickening. No bowel obstruction. The majority of the large bowel is decompr essed. Wall thickening of the distal stomach is also likely secondary to partial distention. Small fa t and fluid filled periumbilical hernia. Moderate abdominopelvic ascites. There is peritoneal enhance ment of the pelvis (for example please see image 359 series 3. 13 mm calcification of the right hemip cheo is unchanged. Moderate diffuse body wall edema. Degenerative changes of the spine and pelvis. N o acute fracture. IMPRESSION: 1. Heterogeneous appearance of the liver with questioned cirrhosis. Fluid overload manifested by trac e pleural effusions, small pericardial effusion, diffuse body wall edema with moderate abdominopelvic ascites. 2. Peritoneal enhancement of the pelvis is also noted. Correlate clinically to exclude peritonitis. 3. No bowel obstruction. 4. Cholelithiasis. 5. Mild renal atrophy with bilateral cortical thinning. 6. Additional findings as above. ACT 112: Negative or not required by law. The above report was generated using voice recognition software. It may contain grammatical, syntax o r spelling errors. Electronically signed by: Elvis Camacho M.D. 03/19/2020 12:30 PM
--- NOTE | 2020-03-19 12:53 | Emergency Department Note ---
History of Present Illness General Chief complaint: GI Assessment Time Seen by Provider: 03/19/20 10:55 Source: patient Mode of arrival: EMS Limitations: physical limitation History of Present Illness Provider complaint: Nausea/vomiting/abdominal pain Maximum Pain Intensity: 10 This is a 74-year-old female who presents to the ED with a chief complaint of nausea and vomiting as well as abdominal pain that started yesterday. She states that she felt bloated prior to dialysis. She started vomiting towards the end of dialysis yesterday. She has had numerous episodes of vomiting since yesterday. The patient reports some diffuse abdominal discomfort that is worse with movement. She has no additional complaints. No fevers. No diarrhea. She states that she did have a normal bowel movement while she was here. Home Medications Home Medications Medication Instructions Recorded Confirmed Type Lantus Solostar U-100 Insulin 16 units SUBCUT PM 10/30/18 03/19/20 History amiodarone 200 mg PO QAM 10/30/18 03/19/20 History atorvastatin 40 mg PO HS 10/30/18 03/19/20 History carvedilol 50 mg PO BID 10/30/18 03/19/20 History insulin aspart U-100 [Novolog 0 unit SUBCUT UD 10/30/18 11/20/19 History Flexpen U-100 Insulin] torsemide 20 mg PO QAM 10/30/18 03/19/20 History hydralazine 50 mg PO TID 04/27/19 03/19/20 History lorazepam [Ativan] 0.5 mg PO TID PRN 04/27/19 03/19/20 History warfarin 4 mg PO HS 04/27/19 03/19/20 History Culturelle 1 cap PO TID 09/03/19 03/19/20 History acetaminophen 1,000 mg PO Q6H PRN 09/03/19 03/19/20 History albuterol sulfate 2 puff INHALATION Q4 PRN 09/03/19 03/19/20 History docusate sodium 100 mg PO QAM 09/03/19 03/19/20 History fluticasone propionate [Flonase 2 spray INTRANASAL BID 09/03/19 03/19/20 History Allergy Relief] lidocaine-prilocaine 1 applic TOPICAL UD 09/03/19 03/19/20 History omeprazole 40 mg PO QAM 09/03/19 03/19/20 History polyethylene glycol 3350 [Miralax] 17 g PO DAILY PRN 09/03/19 03/19/20 History Allergies Allergy/AdvReac Type Severity Reaction Status Date / Time adhesive Allergy Unknown RXN TO Verified 03/19/20 10:54 ADHESIVE ON NITRO PATCH strawberry Allergy Unknown EDEMA OF Verified 03/19/20 10:54 FACE /LIPS /TONGUE DESIREE Inhibitors AdvReac Mild COUGH Verified 03/19/20 10:54 diphenhydramine AdvReac Mild VERY WEAK, Verified 03/19/20 10:54 CHF lisinopril AdvReac Mild COUGH Verified 03/19/20 10:54 nitroglycerin AdvReac Mild HEADACHE/NA Verified 03/19/20 10:54 USEA Sulfa (Sulfonamide AdvReac Mild "KNOCKS ME Verified 03/19/20 10:54 Antibiotics) OUT" amlodipine AdvReac Unknown RETAIN Verified 03/19/20 10:54 FLUID Past Med/Surg History Medical History Anemia of renal disease Anxiety Biventricular ICD (implantable cardioverter-defibrillator) in place Degenerative cervical disc Depression Diabetes mellitus, type II Endocarditis Pacemaker wire vegetation ESRD (end stage renal disease) on dialysis GERD (gastroesophageal reflux disease) H/O TIA (transient ischemic attack) and stroke Hip fracture, left HTN (hypertension) Hx of supraventricular tachycardia Idiopathic cardiomyopathy Left bundle 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 Paroxysmal atrial fibrillation Pericardial effusion Proteinuria PVD (peripheral vascular disease) Secondary hyperparathyroidism Slow transit constipation Streptococcus bovis infection Bacteremia with pacemaker lead vegetation Surgical History H/O dilation and curettage History of appendectomy History of cataract surgery History of hysterectomy History of left hip hemiarthroplasty S/P pericardial surgery Pericardial window for pericardial effusion Family History Brother Diabetes Mother Diabetes Coronary heart disease Sister Diabetes Social History Smoking Status: Never smoker Hx Alcohol Use: No Hx Substance Use: No Preferred Language: Kinyarwanda Communication Ability: Effective Fire Patroller Required: No Beliefs That Will Affect Care: None Current Living Situation: Family Current Living Situation Comment: Cousin lives with her-Guillaume Feels Safe at Home: Yes Review of Systems A total of 10 systems reviewed and were otherwise negative Physical Exam Vital Signs Vital Signs - 24 hr 03/19/20 09:54 03/19/20 11:12 03/19/20 11:28 Temperature 37.3 C Temperature Source Oral Pulse Rate 70 70 62 Pulse Rate from SpO2 Sensor 62 Pulse Rhythm Regular Respiratory Rate 20 20 14 Respiratory Effort / Characteristics Non-Labored Spontaneous Respiratory Depth Normal Blood Pressure 167/82 H 174/79 H Blood Pressure Mean 110 104 Blood Pressure Position Lying Pulse Oximetry 94 94 97 Oxygen Delivery Method Room Air Room Air Room Air Sepsis Recent Fever Within 48 Hours No Sepsis New/Unexplained Change in Mental Status No Sepsis Action Taken by Nursing No Action Required 03/19/20 11:31 03/19/20 12:31 03/19/20 13:00 Temperature Temperature Source Pulse Rate 62 61 61 Pulse Rate from SpO2 Sensor 62 Pulse Rhythm Respiratory Rate 16 16 19 Respiratory Effort / Characteristics Respiratory Depth Blood Pressure 172/83 H 187/67 H 192/73 H Blood Pressure Mean 113 100 99 Blood Pressure Position Pulse Oximetry 98 Oxygen Delivery Method Sepsis Recent Fever Within 48 Hours Sepsis New/Unexplained Change in Mental Status Sepsis Action Taken by Nursing CONSTITUTIONAL/VITAL SIGNS: Reviewed / noted above. GENERAL: Non-toxic in appearance. INTEGUMENTARY: Warm, dry, and [place]. HEAD: Normocephalic. EYES: without scleral icterus or trauma. ENT/OROPHARYNX: clear and moist. LYMPHADENOPATHY/NECK: Is supple without lymphadenopathy or meningismus. RESPIRATORY: Lungs clear and equal. CARDIOVASCULAR: Regular rate and rhythm. GI/ABDOMEN: Soft and mild diffuse tenderness. No organomegaly or pulsatile mass. No rebound or guarding. Normal bowel sounds. EXTREMITIES: Warm and well perfused. BACK: No CVA tenderness. NEUROLOGICAL: Intact without focal deficits. PSYCHIATRIC: normal affect. MUSCULOSKELETAL: Normally developed with good muscle tone. TRIAGE NURSING DOCUMENTATION REVIEWED. Course Administered Medications Discontinued Medications Ioversol (Ioversol 100ml) 94 ml IV ONCE ONE Stop: 03/19/20 11:50 Last Admin: 03/19/20 11:49 Dose: 94 ml Documented by: [id number] Metoclopramide HCl (Metoclopramide Hcl Inj 5 Mg/Ml 2 Ml Vial) 5 mg IV ONE ONE Stop: 03/19/20 11:39 Last Admin: 03/19/20 11:45 Dose: 5 mg Documented by: [id number] Morphine Sulfate (Morphine Sulfate 2 Mg/Ml Carp) 1 mg IV NOW STA Stop: 03/19/20 11:39 Last Admin: 03/19/20 11:46 Dose: 1 mg Documented by: [id number] Ondansetron HCl (Ondansetron Inj 2 Mg/Ml 2 Ml Vial) 4 mg IV NOW STA Stop: 03/19/20 10:56 Last Admin: 03/19/20 11:09 Dose: 4 mg Documented by: [id number] Medical Decision Making Differential Diagnosis Differential includes acute coronary syndrome, myocardial infarction, CVA, TIA, anemia, infection, pneumonia, UTI, pyelonephritis, poor nutrition, dehydration, electrolyte disturbance,hypoglycemia. Medical Records Attestation: I reviewed the patient's medical records. Home Medications Current Medication List: was personally reviewed by me Laboratory Data Attestation: I reviewed the patient's lab results. Result diagrams: 03/19/20 10:00 03/19/20 10:00 Lab Results 03/19/20 03/19/20 Range/Units 10:00 10:00 WBC 8.61 (4.8-10.8) K/uL RBC 3.43 L (4.2-5.4) M/uL Hgb 11.1 L (12.0-16.0) g/dL Hct 34.5 L (37-47) % MCV 100.6 H (80-100) fL MCH 32.4 (25-34) pg MCHC 32.2 (32-36) g/dL RDW Std Deviation 54.5 H (36.4-46.3) fL RDW Coeff of Jacobo 14.8 H (11.5-14.5) % Plt Count 73 L (130-400) K/uL MPV 12.1 H (7.4-10.4) fL Immature Gran % (Auto) 0.3 % Neut % (Auto) 82.2 % Lymph % (Auto) 7.7 % [place] % (Auto) 8.5 % Eos % (Auto) 1.2 % Baso % (Auto) 0.1 % Neut # (Auto) 7.08 H (1.4-6.5) K/uL Lymph # (Auto) 0.66 L (1.2-3.4) K/uL [place] # (Auto) 0.73 H (0.11-0.59) K/uL Eos # (Auto) 0.10 (0-0.5) K/uL Baso # (Auto) 0.01 (0-0.2) K/uL Immature Gran # (Auto) 0.03 H (0.00-0.02) K/uL Sodium 136 (136-145) mmol/L Potassium 4.1 (3.5-5.1) mmol/L Chloride 97 L (98-107) mmol/L Carbon Dioxide 30 (21-32) mmol/L Anion Gap 9.0 (3-11) BUN 29 H (7-18) mg/dl Creatinine 4.55 H* (0.6-1.2) mg/dl Est Cr Clr Drug Dosing 11.2 ml/min Est GFR ( Amer) 10.3 Est GFR (Non-Af Amer) 8.9 BUN/Creatinine Ratio 6.4 L (10-20) Glucose 80 (70-99) mg/dl Calcium 9.5 (8.5-10.1) mg/dl Total Bilirubin 1.1 H (0.2-1) mg/dl AST 18 (15-37) U/L ALT 15 (12-78) U/L Alkaline Phosphatase 120 H (45-117) U/L Total Protein 8.0 (6.4-8.2) gm/dl Albumin 4.0 (3.4-5.0) gm/dl Globulin 4.0 (2.5-4.0) gm/dl Albumin/Globulin Ratio 1.0 (0.9-2) Lipase 107 (73-393) U/L Imaging Data Radiologist's Impression: IMPRESSION: 1. Heterogeneous appearance of the liver with questioned cirrhosis. Fluid overload manifested by trace pleural effusions, small pericardial effusion, diffuse body wall edema with moderate abdominopelvic ascites. 2. Peritoneal enhancement of the pelvis is also noted. Correlate clinically to exclude peritonitis. 3. No bowel obstruction. 4. Cholelithiasis. 5. Mild renal atrophy with bilateral cortical thinning. 6. Additional findings as above. MDM Narrative The patient presents with nausea and vomiting as well as some epigastric abdominal pain. Her symptoms started yesterday towards the end of dialysis. Her exam reveals some mild diffuse tenderness but worse in the epigastric area. The CBC and chemistry panel was unremarkable with the exception of the elevated creatinine. Lipase was negative. A CT scan of the abdomen pelvis reveals some findings questioning cirrhosis and fluid overload. The patient does not have any clinical findings to suggest acute pulmonary edema. The CT scan also suggested possible peritonitis in the pelvis. The patient clinically does not have peritonitis in the pelvis. Because of the patient's vomiting despite getting Zofran and Reglan here, she will be observed in the hospital for further evaluation and care. She was given some IV morphine for pain as well. She will be seen by the hospitalist for further evaluation and care. Impression & Plan Nausea & vomiting, Abdominal pain, acute, epigastric Discharge Plan Visit Data Chief Complaint: GI Assessment ED Provider: Janusz Crawford Discharge Problem: Nausea & vomiting, Abdominal pain, acute, epigastric Patient Disposition: Being Evaluated by Hospitalist Condition: Fair Forms Stand Alone Forms: [facility], Virtual Emergency Department, Important Visit Information Prescriptions Prescriptions: No Action atorvastatin 40 mg tablet 40 mg PO HS RF: 0 carvedilol 25 mg tablet 50 mg PO BID RF: 0 torsemide 20 mg tablet 20 mg PO QAM RF: 0 amiodarone 200 mg tablet 200 mg PO QAM RF: 0 insulin aspart U-100 [Novolog Flexpen U-100 Insulin] 100 unit/mL (3 mL) Insulin Pen 0 unit SUBCUT UD RF: 0 Lantus Solostar U-100 Insulin 100 unit/mL (3 mL) insulin pen 16 units subcut PM RF: 0 warfarin 4 mg tablet 4 mg PO HS RF: 0 hydralazine 50 mg tablet 50 mg PO TID RF: 0 lorazepam [Ativan] 0.5 mg tablet 0.5 mg PO TID PRN (Reason: Anxiety) RF: 0 polyethylene glycol 3350 [Miralax] 17 gram Powder In Packet 17 g PO DAILY PRN (Reason: Constipation) RF: 0 acetaminophen 500 mg Tablet 1,000 mg PO Q6H PRN (Reason: Pain) RF: 0 lidocaine-prilocaine 2.5-2.5 % Cream 1 applic topical UD RF: 0 omeprazole 20 mg capsule,delayed release(DR/EC) 40 mg PO QAM RF: 0 albuterol sulfate 90 mcg/actuation HFA aerosol inhaler 2 puff INHALATION Q4 PRN (Reason: Shortness Of Breath Or Wheezing) RF: 0 Culturelle 10 billion cell Capsule 1 cap PO TID RF: 0 fluticasone propionate [Flonase Allergy Relief] 50 mcg/actuation [place],Suspension 2 spray INTRANASAL BID RF: 0 docusate sodium 100 mg Tablet 100 mg PO QAM RF: 0 Referrals Referrals: Zeynep Johnson MD [Primary Care Provider] -
[2020-03-19] MEDS ORDERED: HydrALAZINE HCL 20 MG/ML VIAL IV STA (13:37)
[2020-03-19] MEDS ORDERED: FAMOTIDINE 20MG/5ML IV PUSH IV STA (13:38)
[2020-03-19] MEDS ORDERED: PANTOprazole 40 MG in SYRINGE 0 ML IV STA (13:40)
--- NOTE | 2020-03-19 13:43 | History & Physical Report ---
Date of Service March 19, 2020 History of Present Illness Primary Care Provider: Zeynep Loaiza MD Started for Sat morning prior to dialysis, abdominal pain. Early satiety for months. Friday had [place] fried chicken Last week - urine urgency Allergies Allergy/AdvReac Type Severity Reaction Status Date / Time adhesive Allergy Unknown RXN TO Verified 03/19/20 10:54 ADHESIVE ON NITRO PATCH strawberry Allergy Unknown EDEMA OF Verified 03/19/20 10:54 FACE /LIPS /TONGUE DESIREE Inhibitors AdvReac Mild COUGH Verified 03/19/20 10:54 diphenhydramine AdvReac Mild VERY WEAK, Verified 03/19/20 10:54 CHF lisinopril AdvReac Mild COUGH Verified 03/19/20 10:54 nitroglycerin AdvReac Mild HEADACHE/NA Verified 03/19/20 10:54 USEA Sulfa (Sulfonamide AdvReac Mild "KNOCKS ME Verified 03/19/20 10:54 Antibiotics) OUT" amlodipine AdvReac Unknown RETAIN Verified 03/19/20 10:54 FLUID Home Medications Home Medications Medication Instructions Recorded Confirmed Type Lantus Solostar U-100 Insulin 16 units SUBCUT PM 10/30/18 03/19/20 History amiodarone 200 mg PO QAM 10/30/18 03/19/20 History atorvastatin 40 mg PO HS 10/30/18 03/19/20 History carvedilol 50 mg PO BID 10/30/18 03/19/20 History insulin aspart U-100 [Novolog 0 unit SUBCUT UD 10/30/18 11/20/19 History Flexpen U-100 Insulin] torsemide 20 mg PO QAM 10/30/18 03/19/20 History hydralazine 50 mg PO TID 04/27/19 03/19/20 History lorazepam [Ativan] 0.5 mg PO TID PRN 04/27/19 03/19/20 History warfarin 4 mg PO HS 04/27/19 03/19/20 History Culturelle 1 cap PO TID 09/03/19 03/19/20 History acetaminophen 1,000 mg PO Q6H PRN 09/03/19 03/19/20 History albuterol sulfate 2 puff INHALATION Q4 PRN 09/03/19 03/19/20 History docusate sodium 100 mg PO QAM 09/03/19 03/19/20 History fluticasone propionate [Flonase 2 spray INTRANASAL BID 09/03/19 03/19/20 History Allergy Relief] lidocaine-prilocaine 1 applic TOPICAL UD 09/03/19 03/19/20 History omeprazole 40 mg PO QAM 09/03/19 03/19/20 History polyethylene glycol 3350 [Miralax] 17 g PO DAILY PRN 09/03/19 03/19/20 History Past Med/Surg History Medical History Anemia of renal disease Anxiety Biventricular ICD (implantable cardioverter-defibrillator) in place Degenerative cervical disc Depression Diabetes mellitus, type II Endocarditis Pacemaker wire vegetation ESRD (end stage renal disease) on dialysis GERD (gastroesophageal reflux disease) H/O TIA (transient ischemic attack) and stroke Hip fracture, left HTN (hypertension) Hx of supraventricular tachycardia Idiopathic cardiomyopathy Left 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 Paroxysmal atrial fibrillation Pericardial effusion Proteinuria PVD (peripheral vascular disease) Secondary hyperparathyroidism Slow transit constipation Streptococcus bovis infection Bacteremia with pacemaker lead vegetation Surgical History H/O dilation and curettage History of appendectomy History of cataract surgery History of hysterectomy History of left hip hemiarthroplasty S/P pericardial surgery Pericardial window for pericardial effusion Family History Brother Diabetes Mother Diabetes Coronary heart disease Sister Diabetes Social History Smoking Status: Never smoker Hx Alcohol Use: No Hx Substance Use: No Preferred Language: Bel[place]an Communication Ability: Effective Communication Analyst Required: No Beliefs That Will Affect Care: None Current Living Situation: Family Current Living Situation Comment: Cousin lives with her-Guillaume Feels Safe at Home: Yes Results & Data Results & Data ([facility]) Vital Signs (Past 12 Hours) Vital Signs Temp Pulse Resp BP Pulse Ox 03/19/20 13:00 61 19 192/73 H 03/19/20 12:31 61 16 187/67 H 03/19/20 11:31 62 16 172/83 H 98 03/19/20 11:28 62 14 174/79 H 97 03/19/20 11:12 70 20 94 03/19/20 09:54 37.3 C 70 20 167/82 H 94 PG Care Time/CCT Total # of Minutes Spent Total Time Spent with Patient: Total time spent is greater than 50% in coordination of care (as documented) at patient's floor/unit and/or counseling patient: Coding
--- NOTE | 2020-03-19 14:53 | History & Physical Report ---
Date of Service March 19, 2020 Assessment & Plan (1) Nausea & vomiting: -Patient is on dialysis every Friday//Friday. because patient had vomiting during last outpatient dialysis on Friday03/18/2020, the planned dialysis of 3 hours and 15 minutes was cut short by 1 hour as per patient there is some mild crackles on lung exam, but patient breathing comfortably on room air. Patient then reports 2 episodes of vomiting at home in AM of 03/19/2020 so she called for assistance to come to hospital for evaluation. Patient denies taking any home medications on 03/19/2020. Her blood pressure is high with systolic of 200 with blood pressure appearing to be exacerbated by the abdominal discomforts. CT abdomen exam in the ED does not appear to be able to identify a clear etiology for her abdomen discomforts and clinical exam not suggesting peritonitis -"1. Heterogeneous appearance of the liver with questioned cirrhosis. Fluid overload manifested by trace pleural effusions, small pericardial effusion, diffuse body wall edema with moderate abdominopelvic ascites. 2. Peritoneal enhancement of the pelvis is also noted. Correlate clinically to exclude peritonitis. 3. No bowel obstruction. 4. Cholelithiasis. 5. Mild renal atrophy with bilateral cortical thinning." -Her white counts are around 8,000 which while this is within the normal parameters the WBC levels are higher relative to labs from previous hospitalizations. Patient denies fevers at home and is afebrile. Follow the blood cultures. Patient reports that despite her status of a dialysis patient, she does make some urine. she denies dysuria but notes more frequent urinary incontinence recently. will check the urine analysis. will empirically start IV antibiotics as Zosyn until cultures return. -give prn Phenergan (Promethazine) for nausea or vomiting to avoid affecting QTC -consult gastroenterology (2) Abdominal pain, acute, epigastric: -area of abdominal discomfort appears to be above epigastrum -give pantoprazole -consult gastroenterology, give clear liquid diet and NPO after midnight (3) ESRD (end stage renal disease) on dialysis: chronic anemia -Patient is On dialysis every Friday//Friday -because patient had vomiting during last outpatient dialysis on Friday03/18/2020, the planned dialysis of 3 hours and 15 minutes was cut short by 1 hour as per patient -there is some mild crackles on lung exam, but patient breathing comfortably on room air -Hgb appears stable -consult nephrology on dialysis, her outpatient nephrology is typically [facility] Dr. Akiko Liu (4) HTN (hypertension): Chronic systolic congestive heart failure with left bundle branch block and Paroxysmal Atrial Fibrillation with FDC use of 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 (as per outpatient notes) -has Biventricular implantable cardioverter-defibrillator -patient has underlying hypertension -her elevated blood pressure on presentation is from missing home medication and abdominal discomfort -she got stat dose of IV hydralazine in the ED. -continue home medication of carvedilol, amiodarone, hydralazine, monitor on telemetry -hold the home dose torsemide for now because of nausea and vomiting -check the INR before deciding on continuing home dose coumadin or not (5) Diabetes mellitus, type II: 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 correction current use of insulin -patient typically takes Lantus 16 units qhs with sliding scale insulin during rest of the day -because of nausea and vomiting, hold off on long acting insulin for now, follow the blood sugars and give sliding scale insulin as needed, check the HbA1c PT/OT evaluations, Case management consult Full Code Status (but patient does not desire prolong mechanical ventilation in our discussions) My hospitalist colleague Dr. Meneses will be hospitalist for the patient starting on 03/20/2020 History of Present Illness Patient is on dialysis every Friday//Friday. because patient had vomiting during last outpatient dialysis on Friday03/18/2020, the planned dialysis of 3 hours and 15 minutes was cut short by 1 hour as per patient there is some mild crackles on lung exam, but patient breathing comfortably on room air. Patient then reports 2 episodes of vomiting at home in AM of 03/19/2020 so she called for assistance to come to hospital for evaluation. Patient denies taking any home medications on 03/19/2020. Her blood pressure is high with systolic of 200 with blood pressure appearing to be exacerbated by the abdominal discomforts. CT abdomen exam in the ED does not appear to be able to identify a clear etiology for her abdomen discomforts and clinical exam not suggesting peritonitis "1. Heterogeneous appearance of the liver with questioned cirrhosis. Fluid overload manifested by trace pleural effusions, small pericardial effusion, diffuse body wall edema with moderate abdominopelvic ascites. 2. Peritoneal enhancement of the pelvis is also noted. Correlate clinically to exclude peritonitis. 3. No bowel obstruction. 4. Cholelithiasis. 5. Mild renal atrophy with bilateral cortical thinning." Her white counts are around 8,000 which while this is within the normal parameters the WBC levels are higher relative to labs from previous hospitalizations. Patient denies fevers at home and is afebrile. Follow the blood cultures. Patient reports that despite her status of a dialysis patient, she does make some urine. she denies dysuria but notes more frequent urinary incontinence recently. will check the urine analysis. will empirically start IV antibiotics as Zosyn until cultures return. Primary Care Provider: Zeynep Loaiza MD Allergies Allergy/AdvReac Type Severity Reaction Status Date / Time adhesive Allergy Unknown RXN TO Verified 03/19/20 10:54 ADHESIVE ON NITRO PATCH strawberry Allergy Unknown EDEMA OF Verified 03/19/20 10:54 FACE /LIPS /TONGUE DESIREE Inhibitors AdvReac Mild COUGH Verified 03/19/20 10:54 diphenhydramine AdvReac Mild VERY WEAK, Verified 03/19/20 10:54 CHF lisinopril AdvReac Mild COUGH Verified 03/19/20 10:54 nitroglycerin AdvReac Mild HEADACHE/NA Verified 03/19/20 10:54 USEA Sulfa (Sulfonamide AdvReac Mild "KNOCKS ME Verified 03/19/20 10:54 Antibiotics) OUT" amlodipine AdvReac Unknown RETAIN Verified 03/19/20 10:54 FLUID Home Medications Home Medications Medication Instructions Recorded Confirmed Type Lantus Solostar U-100 Insulin 16 units SUBCUT PM 10/30/18 03/19/20 History amiodarone 200 mg PO QAM 10/30/18 03/19/20 History atorvastatin 40 mg PO HS 10/30/18 03/19/20 History carvedilol 50 mg PO BID 10/30/18 03/19/20 History insulin aspart U-100 [Novolog 0 unit SUBCUT UD 10/30/18 11/20/19 History Flexpen U-100 Insulin] torsemide 20 mg PO QAM 10/30/18 03/19/20 History hydralazine 50 mg PO TID 04/27/19 03/19/20 History lorazepam [Ativan] 0.5 mg PO TID PRN 04/27/19 03/19/20 History warfarin 4 mg PO HS 04/27/19 03/19/20 History Culturelle 1 cap PO TID 09/03/19 03/19/20 History acetaminophen 1,000 mg PO Q6H PRN 09/03/19 03/19/20 History albuterol sulfate 2 puff INHALATION Q4 PRN 09/03/19 03/19/20 History docusate sodium 100 mg PO QAM 09/03/19 03/19/20 History fluticasone propionate [Flonase 2 spray INTRANASAL BID 09/03/19 03/19/20 History Allergy Relief] lidocaine-prilocaine 1 applic TOPICAL UD 09/03/19 03/19/20 History omeprazole 40 mg PO QAM 09/03/19 03/19/20 History polyethylene glycol 3350 [Miralax] 17 g PO DAILY PRN 09/03/19 03/19/20 History Past Med/Surg History Medical History Anemia of renal disease Anxiety Biventricular ICD (implantable cardioverter-defibrillator) in place Degenerative cervical disc Depression Diabetes mellitus, type II Endocarditis Pacemaker wire vegetation ESRD (end stage renal disease) on dialysis GERD (gastroesophageal reflux disease) H/O TIA (transient ischemic attack) and stroke Hip fracture, left HTN (hypertension) Hx of supraventricular tachycardia Idiopathic cardiomyopathy Left bundle branch block (11/07/11) FDC (current) use of 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 Paroxysmal atrial fibrillation Pericardial effusion Proteinuria PVD (peripheral vascular disease) Secondary hyperparathyroidism Slow transit constipation Streptococcus bovis infection Bacteremia with pacemaker lead vegetation Surgical History H/O dilation and curettage History of appendectomy History of cataract surgery History of hysterectomy History of left hip hemiarthroplasty S/P pericardial surgery Pericardial window for pericardial effusion Family History Brother Diabetes Mother Diabetes Coronary heart disease Sister Diabetes Social History Smoking Status: Never smoker Hx Alcohol Use: No Hx Substance Use: No Preferred Language: Sammarinese Communication Ability: Effective Environmental Protection Officer Required: No Beliefs That Will Affect Care: None Current Living Situation: Family Current Living Situation Comment: Cousin lives with her-Guillaume Feels Safe at Home: Yes Review of Systems Review of Systems: All systems reviewed & are unremarkable except as noted in Subjective Physical Exam Constitutional: cooperative Eyes: PERRL, conjunctivae normal, anicteric sclerae EOM intact bilaterally ENMT: external ear and nose normal, oropharynx normal Neck: trachea midline, no thyromegaly normal visual inspection Respiratory: normal respiratory effort, lungs clear to auscultation Cardiovascular: Rate/Rhythm: + bradycardic Hypertension with systolic blood pressure around 200 Gastrointestinal (Abdomen): Inspection/Auscultation: abdomen normal to inspection Percussion/Palpation: abdomen soft patient reports tenderness of upper epigrastrum Neurologic: PERRL, EOMI, accommodation nl, no face palsy, no dysarthria moves all extremities Psychiatric: Orientation: alert and cooperative Results & Data Results & Data ([facility]) Vital Signs (Past 12 Hours) Vital Signs Temp Pulse Resp BP Pulse Ox 03/19/20 14:30 61 17 202/103 H 03/19/20 14:01 64 18 197/98 H 03/19/20 13:31 65 16 199/88 H 03/19/20 13:00 61 19 192/73 H 03/19/20 12:31 61 16 187/67 H 03/19/20 11:31 62 16 172/83 H 98 03/19/20 11:28 62 14 174/79 H 97 03/19/20 11:12 70 20 94 03/19/20 09:54 37.3 C 70 20 167/82 H 94 (1) Diabetes mellitus, type II Chronic kidney disease stage: on chronic dialysis Diabetes mellitus complication detail: with chronic kidney disease Diabetes mellitus complication status: with kidney complications Diabetes mellitus correction insulin use: unspecified rn long term care insulin use status Qualified Code(s): E11.22 - 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 diabetic chronic kidney disease; N18.6 - End stage renal disease; Z99.2 - Dependence on renal dialysis (2) Nausea & vomiting Vomiting Intractability: intractable Vomiting type: unspecified Qualified Code(s): R11.2 - Nausea with vomiting, unspecified (3) HTN (hypertension) Hypertension type: unspecified Qualified Code(s): I10 - Essential (primary) hypertension
[2020-03-19 15:26] LABS: INR 2.5 (0.9-1.1); Prothrombin Time 24.9 Seconds (9.0-12.0)
[2020-03-19] MEDS ORDERED: POLYETHYLENE (MIRALAX) 17 GM PACK PO PRN (16:19)
[2020-03-19] MEDS ORDERED: DEXTROSE 50% 50 ML SYRINGE IV PRN (16:19)
[2020-03-19] MEDS ORDERED: ALBUTEROL HFA 8 GM INHALER INH PRN (16:19)
[2020-03-19] MEDS ORDERED: CARBOHYDRATES FOR HYPOGLYCEMIA PO PRN (16:19)
[2020-03-19] MEDS ORDERED: GLUCAGON FOR INJ 1 MG VIAL SQ PRN (16:19)
[2020-03-19] MEDS ORDERED: GLUCOSE 40% GEL 15 GM TUBE PO PRN (16:19)
[2020-03-19] MEDS ORDERED: PROMETHAZINE HCL 12.5 MG in SODIUM CHLORIDE 0.9% 50 ML IV PRN (16:19)
[2020-03-19] MEDS ORDERED: GLUCOSE 10 TABS/TUBE PO PRN (16:19)
[2020-03-19] MEDS ORDERED: LORazepam 0.5 MG TAB PO PRN (16:19)
[2020-03-19] MEDS ORDERED: LIDOCAINE/PRILOCAINE 2.5% EA CRM EXT PRN (16:19)
[2020-03-19] MEDS ORDERED: PIPERACILL/TAZOBAC CONSULT ACTIVE PRN (16:27)
[2020-03-19] MEDS ORDERED: PIPERACILLIN/TAZOBACTAM 3.375 GM in DEXTROSE 5% 100 ML IV ONE (16:45)
[2020-03-19] MEDS: INSULIN ASPART 100 UNITS/ML 3 ML PEN SC SCH ×2 (17:43→20:31)
--- NOTE | 2020-03-19 19:46 | Gastrointestinal Consultation ---
Date of Consultation March 19, 2020 Assessment & Plan (1) Nausea & vomiting: (2) Abdominal pain, acute, epigastric: (3) Ascites: possibly secondary to infectious process vs. severe dyspepsia/GERD in combo with ESRD Recs: protonix 40 mg IV BID anti-emetics prn obtain blood and urine cultures obtain diagnostic paracentesis, r/o SBP empiric abx as per primary team Thank you for allowing me to participate in the care of this patient (4) Barretts esophagus: History of Present Illness Attending Physician: Alex Calvo MD 74 yo female with ESRD on dialysis //sat here with vomiting during dialysis yesterday. She continued to have vomiting this morning and then presented to the ER. During admission she had clear liquids then proceeded to vomit it back up, no reports of hematemesis. 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 She also has been having abdominal discomfort. CT Abdomen here shows possible cirrhosis and moderate ascites. BP was noted to be elevated as well. labs reviewed. Allergies Allergy/AdvReac Type Severity Reaction Status Date / Time adhesive Allergy Unknown RXN TO Verified 03/19/20 10:54 ADHESIVE ON NITRO PATCH strawberry Allergy Unknown EDEMA OF Verified 03/19/20 10:54 FACE /LIPS /TONGUE DESIREE Inhibitors AdvReac Mild COUGH Verified 03/19/20 10:54 diphenhydramine AdvReac Mild VERY WEAK, Verified 03/19/20 10:54 CHF lisinopril AdvReac Mild COUGH Verified 03/19/20 10:54 nitroglycerin AdvReac Mild HEADACHE/NA Verified 03/19/20 10:54 USEA Sulfa (Sulfonamide AdvReac Mild "KNOCKS ME Verified 03/19/20 10:54 Antibiotics) OUT" amlodipine AdvReac Unknown RETAIN Verified 03/19/20 10:54 FLUID Home Medications Home Medications Medication Instructions Recorded Confirmed Type Lantus Solostar U-100 Insulin 16 units SUBCUT PM 10/30/18 03/19/20 History amiodarone 200 mg PO QAM 10/30/18 03/19/20 History atorvastatin 40 mg PO HS 10/30/18 03/19/20 History carvedilol 50 mg PO BID 10/30/18 03/19/20 History insulin aspart U-100 [Novolog 0 unit SUBCUT UD 10/30/18 11/20/19 History Flexpen U-100 Insulin] torsemide 20 mg PO QAM 10/30/18 03/19/20 History hydralazine 50 mg PO TID 04/27/19 03/19/20 History lorazepam [Ativan] 0.5 mg PO TID PRN 04/27/19 03/19/20 History warfarin 4 mg PO HS 04/27/19 03/19/20 History Culturelle 1 cap PO TID 09/03/19 03/19/20 History acetaminophen 1,000 mg PO Q6H PRN 09/03/19 03/19/20 History albuterol sulfate 2 puff INHALATION Q4 PRN 09/03/19 03/19/20 History docusate sodium 100 mg PO QAM 09/03/19 03/19/20 History fluticasone propionate [Flonase 2 spray INTRANASAL BID 09/03/19 03/19/20 History Allergy Relief] lidocaine-prilocaine 1 applic TOPICAL UD 09/03/19 03/19/20 History omeprazole 40 mg PO QAM 09/03/19 03/19/20 History polyethylene glycol 3350 [Miralax] 17 g PO DAILY PRN 09/03/19 03/19/20 History Patient History Medical History Anemia of renal disease Anxiety Biventricular ICD (implantable cardioverter-defibrillator) in place Degenerative cervical disc Depression Diabetes mellitus, type II Endocarditis Pacemaker wire vegetation ESRD (end stage renal disease) on dialysis GERD (gastroesophageal reflux disease) H/O TIA (transient ischemic attack) and stroke Hip fracture, left HTN (hypertension) Hx of supraventricular tachycardia Idiopathic cardiomyopathy Left bundle branch block (11/07/11) nursing home (current) use of 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 Paroxysmal atrial fibrillation Pericardial effusion Proteinuria PVD (peripheral vascular disease) Secondary hyperparathyroidism Slow transit constipation Streptococcus bovis infection Bacteremia with pacemaker lead vegetation Surgical History H/O dilation and curettage History of appendectomy History of cataract surgery History of hysterectomy History of left hip hemiarthroplasty S/P pericardial surgery Pericardial window for pericardial effusion Family History Brother Diabetes Mother Diabetes Coronary heart disease Sister Diabetes Social History Smoking Status: Never smoker Hx Alcohol Use: No Hx Substance Use: No Preferred Language: Welsh Communication Ability: Effective Communication Ability Comment: hard of hearing Plastics 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 Engineer Required: No Beliefs That Will Affect Care: None Current Living Situation: Family Current Living Situation Comment: cousin lives with patient Other Information That Helps Us Care for You: No Feels Safe at Home: Yes Safety Concerns: Feels Safe At This Time Review of Systems Constitutional: no fever, no chills and no weight loss Eyes: as per Subjective / HPI Ear, Nose, Mouth, Throat: as per Subjective / HPI Respiratory: no dyspnea and no dyspnea on exertion Cardiovascular: no chest pain and no palpitations Gastrointestinal: as per Subjective / HPI Musculoskeletal: no joint pain and no swelling Integumentary: no rash and no lesions Neurologic: no numbness and no paresthesia Psychiatric: no depression and no anxiety Endocrine: no fatigue Hematologic / Lymphatic: no easy bleeding and no easy bruising Physical Exam Constitutional: WD/WN, vitals as above Eyes: EOM intact bilaterally Neck: normal visual inspection Respiratory: normal respiratory effort, lungs clear to auscultation Cardiovascular: RRR, no murmur, no edema Gastrointestinal (Abdomen): Inspection/Auscultation: abdomen normal to inspection; abdomen not distended Percussion/Palpation: abdomen soft; abdomen nontender and no hepatosplenomegaly Musculoskeletal: Extremities: no cyanosis Gait: normal gait Skin: no rashes, warm and dry Neurologic: moves all extremities Psychiatric: A+Ox3, euthymic affect Results & Data ([facility]) Vital Signs (Past 12 Hours) Vital Signs Temp Pulse Pulse Resp BP BP Pulse Ox 03/19/20 19:35 37 C 60 18 162/66 H 93 03/19/20 16:29 36.5 C 62 20 155/81 H 96 03/19/20 15:46 68 21 185/84 H 98 03/19/20 15:30 68 21 185/84 H 98 03/19/20 15:00 61 20 190/79 H 98 03/19/20 14:30 61 17 202/103 H 03/19/20 14:01 64 18 197/98 H 03/19/20 13:31 65 16 199/88 H 03/19/20 13:00 61 19 192/73 H 03/19/20 12:31 61 16 187/67 H 03/19/20 11:31 62 16 172/83 H 98 03/19/20 11:28 62 14 174/79 H 97 03/19/20 11:12 70 20 94 03/19/20 09:54 37.3 C 70 20 167/82 H 94 PG Care Time/CCT Total # of Minutes Spent Total Time Spent with Patient: Total time spent is greater than 50% in coordination of care (as documented) at patient's floor/unit and/or counseling patient: Coding Level of Care Code 24051 Initial Inpt Care Lvl 3 Diagnoses Nausea & vomiting R11.2 Vomiting Intractability: intractable Vomiting type: unspecified Abdominal pain, acute, epigastric R10.13 Ascites R18.8 Barretts esophagus K22.70 (1) Nausea & vomiting Vomiting Intractability: intractable Vomiting type: unspecified Qualified Code(s): R11.2 - Nausea with vomiting, unspecified
[2020-03-19] MEDS: FLUTICASONE PROPIONATE NA SPR 16 GM BTL NAE SCH (20:25)
[2020-03-19] MEDS: carvediloL 25 MG TAB PO SCH (20:26)
[2020-03-19] MEDS: ATORVASTATIN 40 MG TAB PO SCH (20:28)
[2020-03-19] MEDS: HydrALAZINE TAB 50 MG TAB PO SCH (20:28)
[2020-03-19 20:35] LABS: Appearance Urine Turbid (Clear); Bacteria Urine Automated 2+ (Negative); Blood Urine 2+ (Negative); Color Urine Dark Yellow; Epithelial Cell Urine Auto >30 /lpf (0-5); Glucose Urine UA Negative (Negative); Ketones Urine Trace (Negative); Leukocyte Esterase Urine 3+ (Negative); Nitrite Urine Negative (Negative); Protein Urine 2+ (Negative); Urobilinogen Urine Negative (Negative); WBC Urine Automated >30 /hpf (0-5)
[2020-03-19 20:44] LABS: Bilirubin Urine Negative (Negative); Ictotest Urine Negative (Negative)
[2020-03-19 20:50] LABS: Cast Urine Automated 0 /lpf (0-5); RBC Urine Automated >30 /hpf (0-4)
[2020-03-19] MEDS ORDERED: NON-FORMULARY MEDICATION (Lactobacillus Rhamnosus Gg [Culturelle] 1 CAP) PO SCH (21:00)
[2020-03-19] MEDS ORDERED: WARFARIN SOD 4 MG TAB PO SCH (21:00)
[2020-03-20] MEDS: PIPERACILLIN/TAZOBACTAM 3.375 GM in DEXTROSE 5% 100 ML IV SCH ×2 (02:14→14:12)
[2020-03-20] MEDS: ACETAMINOPHEN 325 MG TAB PO PRN (02:21)
--- NOTE | 2020-03-20 07:00 | Electrocardiogram Report ---
Test Reason : Blood Pressure : / mmHG Vent. Rate : 061 BPM Atrial Rate : 061 BPM P-R Int : 168 ms QRS Dur : 184 ms QT Int : 576 ms P-R-T Axes : 090 -68 100 degrees QTc Int : 579 ms AV dual-paced rhythm Biventricular pacemaker detected Abnormal ECG When compared with ECG of 20-NOV-2019 10:41, No significant change was found Confirmed by Leonardo Burgos ([id number]) on 03/20/2020 7:00:05 AM Referred By: REFERRED SELF Confirmed By:Leonardo Burgos
[2020-03-20] MEDS: DOCUSATE SODIUM 100 MG CAP PO SCH (07:50)
[2020-03-20] MEDS: carvediloL 25 MG TAB PO SCH ×2 (07:50→21:05)
[2020-03-20] MEDS: HydrALAZINE TAB 50 MG TAB PO SCH ×3 (07:50→21:05)
[2020-03-20] MEDS: AMIODARONE 200 MG TAB PO SCH (07:50)
[2020-03-20] MEDS: FLUTICASONE PROPIONATE NA SPR 16 GM BTL NAE SCH ×2 (07:51→21:05)
[2020-03-20 08:22] LABS: Hematocrit (blood only) 32.7 % (37-47); Hemoglobin 10.8 g/dL (12.0-16.0); Mean Corpuscular Hemoglobin 32.3 pg (25-34); Mean Corpuscular Volume 97.9 fL (80-100); Mean Platelet Volume 12.2 fL (7.4-10.4); Platelet Count 58 K/uL (130-400); RDW Standard Deviation 53.7 fL (36.4-46.3); Red Blood Count 3.34 M/uL (4.2-5.4); White Blood Count 7.57 K/uL (4.8-10.8)
[2020-03-20] MEDS: INSULIN ASPART 100 UNITS/ML 3 ML PEN SC SCH ×4 (08:27→21:03)
[2020-03-20 08:30] LABS: Estimated Average Glucose 160 mg/dl; Hemoglobin A1C 7.2 % (4.5-5.6)
[2020-03-20 08:31] LABS: INR 3.9 (0.9-1.1); Prothrombin Time 38.4 Seconds (9.0-12.0)
[2020-03-20 08:48] LABS: BUN Creatinine Ratio 6.9 (10-20); Calcium 9.2 mg/dl (8.5-10.1); Est GFR (African American) 7.9; Est GFR (Non-African American) 6.8; Potassium 4.3 mmol/L (3.5-5.1)
[2020-03-20] MEDS ORDERED: PANTOprazole 40 MG in SYRINGE 0 ML IV SCH (11:00)
--- NOTE | 2020-03-20 11:41 | Communication Note ---
Date of Service: March 20, 2020 This is a 74-year-old female with end-stage renal disease on dialysis on Friday Admitted with nausea vomiting CT abdomen pelvis shows no evidence of obstruction, heterogeneous appearance of liver with question cirrhosis, Union in hand splint of the pelvis is also noted, correlate clinically to exclude peritonitis Appreciate input from GI, Recommends diagnostic paracentesis to rule out SBP/spontaneous bacterial esophagitis Continue empiric antibiotic IV Zosyn Urine and blood culture ordered Volume Oveload /acute on chronic diastolic heart failure : CT abdomen pelvis shows fluid overload manifested by trace pleural effusions, small pericardial effusion, diffuse body wall edema with moderate abdominopelvic ascites resumed Torsamide ordered Lasix 40 mg with IV Albumin X1 will d/w Nephrology for further dosing BNP [id number] ECHO ordered End-stage renal disease on dialysis, nephrology consulted for continued scheduled dialysis History of chronic A. fib on Coumadin: INR 3.5, hold Coumadin today, repeat INR tomorrow morning Kateryna Dougherty MD
[2020-03-20] MEDS ORDERED: ALBUMIN 25% 50 ML with FUROSEMIDE 40 MG IV ONE (12:00)
[2020-03-20] MEDS: TORSEMIDE 20 MG TAB PO SCH (12:33)
--- NOTE | 2020-03-20 12:37 | Hospitalist Progress Note ---
Date of Service March 20, 2020 Assessment & Plan (1) Nausea & vomiting: -This is a 74-year-old female with end-stage renal disease on dialysis on Friday Admitted with nausea vomiting CT abdomen pelvis shows no evidence of obstruction, heterogeneous appearance of liver with question cirrhosis, Union in hand splint of the pelvis is also noted, correlate clinically to exclude peritonitis Appreciate input from GI, Recommends diagnostic paracentesis to rule out SBP/spontaneous bacterial esophagitis Continue empiric antibiotic IV Zosyn Urine and blood culture ordered abdomen USG shows moderate amount of ascities History of chronic A. fib on Coumadin: INR 3.5, hold Coumadin today, repeat INR tomorrow morning (2) ESRD (end stage renal disease) on dialysis: -Patient is On dialysis every Friday//Friday -consult nephrology on dialysis, appreciate input (3) HTN (hypertension): Volume Overload /acute on chronic diastolic heart failure : Chronic systolic congestive heart failure with left bundle branch block has Biventricular implantable cardioverter-defibrillator presented with vol overload CT abdomen pelvis shows fluid overload manifested by trace pleural effusions, small pericardial effusion, diffuse body wall edema with moderate abdominopelvic ascites resumed Torsemide ordered Lasix 40 mg with IV Albumin X1 will d/w Nephrology for further dosing BNP [id number] ECHO ordered cont scheduled dialysis monitor vol status HTN: cont out pt meds hx o Afib -continue home medication of carvedilol, amiodarone, -coumadin on hold as INR > 3 (4) Diabetes mellitus, type II: 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 supervisor long goods 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 use of 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 -cont insulin SSI , basal lantus PT/OT evaluations, Case management consult Full Code Status Disposition : will be discharged home when medically stable Admission and Anticipated Discharge Date Admission Date: March 19, 2020 Subjective pt sitting on chair reports of feeling better no complain of abdominal pain or nasuea diet advanced to solid , tolerating well feels abdomen distended has chronic non productive cough since Jul no fever or chills Review of Systems Review of Systems: All systems reviewed & are unremarkable except as noted in HPI & below Physical Exam Constitutional: WD/WN, vitals as above well nourished; no acute distress Eyes: + anicteric sclerae ENMT: external ear and nose normal, oropharynx normal Neck: trachea midline, no thyromegaly Respiratory: normal respiratory effort and + cough (dry chronic cough ); no respiratory distress Auscultation: + diminished lung sounds and + rales Cardiovascular: RRR, no murmur, no edema Gastrointestinal (Abdomen): Inspection/Auscultation: + abdomen distended and normal bowel sounds Percussion/Palpation: abdomen soft and + ascites; abdomen nontender Skin: no rashes, warm and dry Neurologic: PERRL, EOMI, accommodation nl, no face palsy, no dysarthria Psychiatric: A+Ox3, euthymic affect Results & Data Results & Data ([facility]) Vital Signs (Past 12 Hours) Vital Signs Temp Pulse Resp BP Pulse Ox 03/20/20 11:09 36.6 C 62 18 158/69 H 97 03/20/20 07:24 36.7 C 68 18 129/62 95 03/20/20 03:38 37.2 C 61 18 137/65 92 (1) Diabetes mellitus, type II Chronic kidney disease stage: on chronic dialysis Diabetes mellitus complication detail: with chronic kidney disease Diabetes mellitus complication status: with kidney complications Diabetes mellitus care home insulin use: unspecified care home insulin use status Qualified Code(s): E11.22 - 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 diabetic chronic kidney disease; N18.6 - End stage renal disease; Z99.2 - Dependence on renal dialysis (2) Nausea & vomiting Vomiting Intractability: intractable Vomiting type: unspecified Qualified Code(s): R11.2 - Nausea with vomiting, unspecified (3) HTN (hypertension) Hypertension type: unspecified Qualified Code(s): I10 - Essential (primary) hypertension
[2020-03-20] MEDS ORDERED: FUROSEMIDE 120 MG in SYRINGE 0 ML IV ONE (13:20)
--- NOTE | 2020-03-20 13:35 | Consultation Report ---
DATE OF CONSULTATION: 03/20/2020 NEPHROLOGY CONSULTATION NOTE REASON FOR CONSULT: Dialysis patient admitted with nausea, vomiting and abdominal discomfort. HISTORY OF PRESENT ILLNESS: The patient is a 74-year-old female with longstanding diabetes with ESRD, on chronic hemodialysis Friday, , Friday for the last 4-5 years, who presented to the hospital yesterday because of nausea, vomiting and abdominal discomfort. She had those symptoms even on Friday and her dialysis was shortened by about an hour. Denies having any fever, but she did have some chills and sweating at home. At the time of presentation, blood pressure was high and CT scan of the abdomen, pelvis and chest was done, which shows evidence of gross fluid overload with pleural effusion, abdominal wall edema as well as ascites, which is new for her. She does not recall having any liver disease diagnosed before other than fatty liver. Liver does appear to be cirrhotic in nature and for this, she has been seen by gastroenterology already, and she is scheduled to have a diagnostic paracentesis tomorrow. She still makes some urine, but not a lot. BNP was also very elevated at 23,000 plus. So far, she has not really made much urine and is currently getting Lasix 40 mg IV with albumin. PAST MEDICAL AND SURGICAL HISTORY: Hypertension, diabetes, cardiomyopathy, left bundle branch block, status post pacemaker and defibrillator, history of bacteremia, depression, biventricular ICD, anxiety, ESRD, on chronic hemodialysis -- TTS, atrial fibrillation, history of pericardial effusion. Surgical history of D and C, appendix, cataracts, hysterectomy, left hip surgery, status post pericardial window for pericardial effusion. FAMILY HISTORY: Brother, mother and sister with diabetes. SOCIAL HISTORY: No smoking, no alcohol. Lives in home with her family. REVIEW OF SYSTEMS: Other than nausea, vomiting and abdominal discomfort, other systems reviewed and unremarkable. PHYSICAL EXAMINATION: GENERAL: Elderly white female who appears to be in no distress at this time. She was very talkative and was able to give me detailed account of everything that happened in the last few days. VITAL SIGNS: Blood pressure most recently 128/66, pulse rate 71, temperature 36.6, 97% on room air. HEENT: Mucous membrane is moist. NECK: Supple. No jugular venous distention. CHEST: Bilateral decreased breath sounds, occasional crackles. CARDIOVASCULAR: S1, S2 regular. ABDOMEN: Soft, nontender, but diffuse ascites. EXTREMITIES: Show trace edema in the left lower extremity. LABORATORY TESTS: Reviewed and show sodium 134, potassium 4.3, BUN 39, creatinine 5.65. BNP was elevated at 23,646. CT abdomen and pelvis showed questionable cirrhosis with pleural effusion, pericardial effusion, diffuse body wall edema with moderate ascites, bilateral renal cortical thinning with atrophy. Hemoglobin is 10.8, WBC count 7.5, platelet count 58,000. ASSESSMENT AND PLAN: A 74-year-old female with end-stage renal disease, on chronic hemodialysis on Friday, , Friday, admitted with nausea, vomiting, abdominal discomfort of unclear etiology, still under investigation. CT abdomen showed findings suggestive of fluid overload including cirrhosis and ascites. I have been consulted for end-stage renal disease: End-stage renal disease: She gets dialysis on Tuesdays, , Saturdays, so will be getting dialysis tomorrow as per her regular schedule. We will do for 4 hours on a 2K bath and we will try to take about 3 kilo off as allowed by her blood pressure. She does get hypotensive at times according to the patient. She does have evidence of total body fluid overload at this time including pleural effusion, pericardial effusion, moderate ascites. She already has end-stage renal disease, which can cause fluid overload, but this new finding of possible liver cirrhosis does need to be worked up with diagnostic paracentesis. I would also recommend to do an echocardiogram to assess for any cardiac worsening, which can also manifest as total body fluid overload including cardiac cirrhosis and ascites. As a trial, we can use 120 mg IV Lasix one time, but I doubt she will make much urine. MTDD
--- NOTE | 2020-03-20 13:50 | XRay Report ---
SINGLE VIEW CHEST CLINICAL HISTORY: Congestive heart failure. FINDINGS: An AP, portable, upright chest radiograph is compared to study dated 09/06/2019. Correlation is made with chest CT dated 09/07/2019. The examination is degraded by portable technique, apical maximo dotic positioning, and patient rotation. A 3-lead cardiac AICD is unchanged in position and largely o bscures the left apex. The heart is enlarged noting atherosclerotic calcification of the thoracic aor ta. The pulmonary vasculature is noncongested. Scarring/atelectasis is noted at the lung bases. No a irspace consolidation or large pleural effusion is identified. No pneumothorax is seen. The skeletal structures are osteopenic. The bony thorax is grossly intact. IMPRESSION: 1. Cardiomegaly and AICD. There is no radiographic evidence of congestive failure. 2. No airspace consolidation or large pleural effusion is identified. ACT 112: Negative or not required by law. Electronically signed by: Colten Jacinto M.D. 03/20/2020 1:49 PM
[2020-03-20] MEDS ORDERED: COUGH DROP (SUGAR FREE) LOZ 24 LOZ/1 BOX BUCCAL STA (15:51)
[2020-03-20] MEDS ORDERED: COUGH DROP (SUGAR FREE) LOZ 24 LOZ/1 BOX BUCCAL ONE (15:56)
--- NOTE | 2020-03-20 17:13 | Ultrasound Report ---
ULTRASOUND ASCITES CHECK CLINICAL HISTORY: Abdominal ascites. COMPARISON STUDY: Abdominal CT dated 03/19/2020. FINDINGS: Real-time grayscale sonography of all 4 quadrants of the abdomen was performed to assess fo r ascites. There is a small to moderate volume of abdominopelvic ascites. The largest pocket is seen in the right lower quadrant and measures up to 7 cm. The liver is enlarged and heterogeneous with bradly dence of cirrhosis. This was not marked for bedside paracentesis. IMPRESSION: Small to moderate volume of abdominopelvic ascites. Electronically signed by: Cloten Jacinto M.D. 03/20/2020 5:11 PM
[2020-03-20] MEDS: ATORVASTATIN 40 MG TAB PO SCH (21:05)
[2020-03-21] MEDS: PIPERACILLIN/TAZOBACTAM 3.375 GM in DEXTROSE 5% 100 ML IV SCH ×2 (02:05→14:35)
[2020-03-21] MEDS: AMIODARONE 200 MG TAB PO SCH (08:01)
[2020-03-21] MEDS: HydrALAZINE TAB 50 MG TAB PO SCH ×3 (08:01→21:05)
[2020-03-21] MEDS: INSULIN ASPART 100 UNITS/ML 3 ML PEN SC SCH ×4 (08:02→21:06)
[2020-03-21] MEDS: carvediloL 25 MG TAB PO SCH ×2 (08:02→21:05)
[2020-03-21] MEDS: DOCUSATE SODIUM 100 MG CAP PO SCH (08:03)
[2020-03-21] MEDS: PANTOprazole 40 MG TAB PO SCH (08:03)
[2020-03-21] MEDS: FLUTICASONE PROPIONATE NA SPR 16 GM BTL NAE SCH ×2 (08:04→21:07)
[2020-03-21] MEDS: TORSEMIDE 20 MG TAB PO SCH (08:04)
--- NOTE | 2020-03-21 12:15 | Dialysis Progress Note ---
Date of Service March 21, 2020 Assessment & Plan (1) End-stage renal disease (ESRD): On Friday hemodialysis. Undergoing routine treatment today with 2.8 L fluid removal target which she is so far tolerating. She has mild volume overload and is tolerating more aggressive than normal fluid removal. Blood pressures and heart rate are acceptable. Serum chemistries acc eptable. Occasions reviewed and appropriate. Ensure renal dosing for Zosyn. Next treatment on as inpatient or outpatient depending on clinical status Present on Admission?: Yes (2) Nausea & vomiting: Resolved since admission. Tolerated full meal this morning. Continue to monitor. Question GI virus contributing to this and to loose stools Present on Admission?: Yes (3) Ascites: GI following and per their recommendations; we will continue aggressive fluid removal as tolerated at dialysis Present on Admission?: Yes Admission and Anticipated Discharge Date Admission Date: March 19, 2020 Subjective no further emesis this AM; had not felt well after supper yesterday but already full breakfast today with no upper GI symptoms such as nausea abdominal pain or vomiting. Does endorse either bloody bowel movement or gross hematuria or vaginal bleeding: Not sure which. States she was cleaned up by nursing staff: However nursing notes document brown loose stools this a.m. and no documented concerns about bleeding Review of Systems Review of Systems: All systems reviewed & are unremarkable except as noted in HPI & below Physical Exam Constitutional: well developed and well nourished; no acute distress Alert and oriented x3 on room air Eyes: EOM intact bilaterally ENMT: Ears: no external ear abnormality Nose: no external nose abnormality Mouth: + dry oral mucous membranes Neck: no nuchal rigidity Respiratory: normal respiratory effort Auscultation: + diminished lung sounds (But clear) Cardiovascular: Rate/Rhythm: regular rate and regular rhythm Extremities: + edema (At most trace bilateral ankle) and + AV fistula (Positive thrill and bruit) Gastrointestinal (Abdomen): Inspection/Auscultation: normal bowel sounds; abdomen not distended Percussion/Palpation: abdomen soft and + ascites (At most trace); abdomen nontender and no guarding Musculoskeletal: Extremities: strength 5/5 throughout Skin: no rashes, warm and dry Neurologic: bustamante, fluent speech, no tremor Psychiatric: A+Ox3, euthymic affect Results & Data ([facility]) Vital Signs (Past 12 Hours) Vital Signs Temp Pulse Pulse Pulse Resp BP BP 03/21/20 12:00 60 153/79 H 03/21/20 11:40 60 146/67 H 03/21/20 11:20 62 132/59 L 03/21/20 11:00 60 127/53 L 03/21/20 10:40 60 142/61 H 03/21/20 10:36 61 03/21/20 10:20 61 136/63 03/21/20 10:00 61 124/52 L 03/21/20 09:40 0 L 113/53 L 03/21/20 09:20 60 115/53 L 03/21/20 09:00 60 123/53 L 03/21/20 08:51 66 126/56 L 03/21/20 08:43 36.7 C 60 03/21/20 07:30 36.6 C 64 18 127/68 03/21/20 03:16 36.9 C 60 20 103/54 L Pulse Ox 03/21/20 12:00 03/21/20 11:40 03/21/20 11:20 03/21/20 11:00 03/21/20 10:40 03/21/20 10:36 03/21/20 10:20 03/21/20 10:00 03/21/20 09:40 03/21/20 09:20 03/21/20 09:00 03/21/20 08:51 03/21/20 08:43 03/21/20 07:30 97 03/21/20 03:16 95 Laboratory Results 03/20/20 07:35 03/20/20 07:35 INR 3.9 yesterday No stool studies posted (1) Nausea & vomiting Vomiting Intractability: intractable Vomiting type: unspecified Qualified Code(s): R11.2 - Nausea with vomiting, unspecified (2) Ascites Ascites type: other type Qualified Code(s): R18.8 - Other ascites
--- NOTE | 2020-03-21 12:40 | Communication Note ---
Date of Service: March 21, 2020 pt admitted with abdominal distention .ascites , nausea /vomiting GI symtpoms has resioved CT abdomen pelvis shows no evidence of obstruction, heterogeneous appearance of liver with question cirrhosis, Peritoneal enhancement of the pelvis is also noted. Correlate clinically to exclude peritonitis. Appreciate input from GI, Recommends diagnostic paracentesis to rule out SBP/spontaneous bacterial esophagitis abdominal USG shows moderate ascites , largest pocket at rt lower quadrant : 7 cm pt is getting scheduled dialysis today given Lasix 120 mg IV /albumin yesterday ordered for USG guided Diagnostic paracentesis by radiology today appropriate labs for peritoneal fluid analysis ordered Continue empiric antibiotic IV Edward Dougherty MD
--- NOTE | 2020-03-21 14:19 | Gastroenterology Progress Note ---
Date of Service March 21, 2020 Assessment & Plan (1) Nausea & vomiting: Pt is a 74 y/o female with ESRD on dialysis, EGD 10/2018 with [facility], and others admitted with nausea, vomiting, abd pain, and CTAP noting possible cirrhosis, moderate ascites, with pleural effusion suggesting fluid overload. Paracentesis ordered but does not appear to have been done. Pt noting diarrhea today. Diff dx n/v/abd pain, diarrhea = underlying infectious process such as viral gastroenteritis, uremic gastritis; she could also have congestive hepatopathy, gastroenteritis. Labs are stable. - Will send stool for c. diff, stool culture - Continue PPI BID - Would obtain paracentesis if able, and send fluid for cell count, culture, cytology, albumin, protein. - Antiemetics PRN - Will arrange outpt GI f/u to evaluate her liver disease; at that time can arrange outpt EGD, possible EUS/LB at that time. Also conider gastric emptying scan. - Avoid ETOH - Tylenol < 2 gm daily if using (2) Ascites: Admission and Anticipated Discharge Date Admission Date: March 19, 2020 Supervising Physician Co-Signing Physician Notes I performed a history and physical examination of the patient today, including specifically on physical exam - soft abdomen. I have discussed the patient's management with the advanced practitioner. Please refer to the nurse practitioner's note for the documented findings and plan of care. Nausea and vomiting resolved. Now reports some diarrhea. ? acute gastroenteritis. Get stool work up. Follow up as OP for ?cirrhosis and to evaluate for gastroparesis. Recall GI if needed. Subjective Pt seen while getting dialyzed. Reports having brown loose stool today; unsure if she had hematochezia or hematuria but there was some "blood" mixed in." Denies abd pain, n/v. Review of Systems Review of Systems: All systems reviewed & are unremarkable except as noted in HPI & below Physical Exam Constitutional: WD/WN, vitals as above Eyes: + anicteric sclerae Respiratory: normal respiratory effort Cardiovascular: Rate/Rhythm: regular rate and regular rhythm Gastrointestinal (Abdomen): Inspection/Auscultation: abdomen normal to i nspection Percussion/Palpation: abdomen soft; abdomen nontender Psychiatric: A+Ox3, euthymic affect Results & Data ([facility]) Vital Signs (Past 12 Hours) Vital Signs Temp Pulse Pulse Pulse Resp BP BP 03/21/20 12:40 61 169/67 H 03/21/20 12:20 60 167/72 H 03/21/20 12:00 60 153/79 H 03/21/20 11:40 60 146/67 H 03/21/20 11:20 62 132/59 L 03/21/20 11:00 60 127/53 L 03/21/20 10:40 60 142/61 H 03/21/20 10:36 61 03/21/20 10:20 61 136/63 03/21/20 10:00 61 124/52 L 03/21/20 09:40 0 L 113/53 L 03/21/20 09:20 60 115/53 L 03/21/20 09:00 60 123/53 L 03/21/20 08:51 66 126/56 L 03/21/20 08:43 36.7 C 60 03/21/20 07:30 36.6 C 64 18 127/68 03/21/20 03:16 36.9 C 60 20 103/54 L Pulse Ox 03/21/20 12:40 03/21/20 12:20 03/21/20 12:00 03/21/20 11:40 03/21/20 11:20 03/21/20 11:00 03/21/20 10:40 03/21/20 10:36 03/21/20 10:20 03/21/20 10:00 03/21/20 09:40 03/21/20 09:20 03/21/20 09:00 03/21/20 08:51 03/21/20 08:43 03/21/20 07:30 97 03/21/20 03:16 95 (1) Ascites Ascites type: other type Qualified Code(s): R18.8 - Other ascites (2) Nausea & vomiting Vomiting Intractability: intractable Vomiting type: unspecified Qualified Code(s): R11.2 - Nausea with vomiting, unspecified
--- NOTE | 2020-03-21 14:37 | Ultrasound Report ---
DIAGNOSTIC PARACENTESIS UNDER ULTRASOUND GUIDANCE CLINICAL HISTORY: Abdominal ascites. Clinical concern for spontaneous bacterial peritonitis. COMPARISON STUDY: Abdominal CT dated 03/19/2020. Abdominal ultrasound dated 03/20/2020. PROCEDURE: The risks, benefits, and alternatives to the procedure were discussed with the patient who voiced understanding. Written informed consent was obtained. Following real-time ultrasound localiza tion of a suitable pocket of fluid in the left lower quadrant, the abdomen was prepped and draped in the usual sterile fashion. The skin and soft tissues were anesthetized with 1% lidocaine. A 20-gauge needle was then inserted and approximately 110 cc of straw-colored ascitic fluid was removed by manua l suction. This was sent for laboratory analysis. The procedure was well tolerated and without immedi ate complication. The patient returned the medical floor in satisfactory condition. IMPRESSION: Successful ultrasound-guided paracentesis with removal of approximately 110 cc of ascitic fluid which was sent for laboratory analysis. ACT 112: Negative or not required by law. Electronically signed by: Colten Jacinto M.D. 03/21/2020 2:36 PM
[2020-03-21 15:15] LABS: Glucose Peritoneal Fluid 190 mg/dl
[2020-03-21 15:19] LABS: LDH Peritoneal Fluid 96 U/L
[2020-03-21 15:23] LABS: Albumin Peritoneal Fluid 2.5 g/dl; Total Protein Peritoneal Fluid 4.6 g/dl
[2020-03-21 15:25] LABS: Appearance Peritoneal Fluid CLOUDY; Basophils, Fluid 0 %; Color Peritoneal Fluid AMBER; Eosinophils, Fluid 0 %; Lymphocytes, Fluid 27 %; Mono,Macrophage,Mesothelial 36 %; Neutrophils, Fluid 37 %; RBC Peritoneal Fluid (A) 10000 /uL; WBC Peritoneal Fluid (A) 290 /ul (0-300)
[2020-03-21 15:54] LABS: INR 4.1 (0.9-1.1); Prothrombin Time 40.3 Seconds (9.0-12.0)
[2020-03-21 17:02] LABS: Calcium 9.1 mg/dl (8.5-10.1); Creatinine Clr Calc Pharmacy 10.2 ml/min; Est GFR (African American) 10.7; Est GFR (Non-African American) 9.2; Potassium 3.7 mmol/L (3.5-5.1)
[2020-03-21 17:13] LABS: BUN Creatinine Ratio 5.8 (10-20)
--- NOTE | 2020-03-21 18:44 | Hospitalist Progress Note ---
Date of Service March 21, 2020 Assessment & Plan (1) Nausea & vomiting: -This is a 74-year-old female with end-stage renal disease on dialysis on Friday Admitted with nausea vomiting-has completely resolved, diet advanced solid, tolerating well CT abdomen pelvis shows no evidence of obstruction, heterogeneous appearance of liver with question cirrhosis, abdomen USG shows moderate amount of ascities Appreciate input from GI, diagnostic paracentesis ordered Peritoneal /ascitic fluid fluid analysis shows cloudy appearance, with 290 WBC suggestive of SBP Continue empiric antibiotic IV Zosyn History of chronic A. fib on Coumadin: Coumadin kept on hold for elevated INR Patient had reports of bleeding per vagina, also had multiple loose bowel movements mixed with blood -Ordered for pelvic ultrasound -Stool for Hemoccult, stool for C. difficile as well(patient is on broad- spectrum antibiotic) We will give vitamin K 2.5 mg, due to bleeding complications noted with elevated INR of 4.1 (2) ESRD (end stage renal disease) on dialysis: -Patient is On dialysis every Friday//Friday Patient got routine dialysis today, appreciate nephrology input (3) HTN (hypertension): Volume Overload /acute on chronic diastolic heart failure : Chronic systolic congestive heart failure with left bundle branch block has Biventricular implantable cardioverter-defibrillator presented with vol overload CT abdomen pelvis shows fluid overload manifested by trace pleural effusions, small pericardial effusion, diffuse body wall edema with moderate abdominopelvic ascites resumed Torsemide ECHO: Left ventricular systolic function low normal, EF 50-55% severe tricuspid regurgitation cont scheduled dialysis monitor vol status HTN: cont out pt meds hx o Afib -continue home medication of carvedilol, amiodarone, -coumadin on hold as INR > 3 (4) Diabetes mellitus, type II: 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 lobsterman current use of insulin -cont insulin SSI , basal lantus PT/OT evaluations, Case management consult Full Code Status Disposition : will be discharged home when medically stable Admission and Anticipated Discharge Date Admission Date: March 19, 2020 Physical Exam Constitutional: WD/WN, vitals as above well nourished; no acute distress Eyes: + anicteric sclerae ENMT: external ear and nose normal, oropharynx normal Neck: trachea midline, no thyromegaly Respiratory: normal respiratory effort and + cough (dry chronic cough ); no respiratory distress Auscultation: + diminished lung sounds and + rales Cardiovascular: RRR, no murmur, no edema Gastrointestinal (Abdomen): Inspection/Auscultation: + abdomen distended and normal bowel sounds Percussion/Palpation: abdomen soft and + ascites; abdomen nontender Skin: no rashes, warm and dry Neurologic: PERRL, EOMI, accommodation nl, no face palsy, no dysarthria Psychiatric: A+Ox3, euthymic affect Results & Data Results & Data ([facility]) Vital Signs (Past 12 Hours) Vital Signs Temp Pulse Pulse Pulse Pulse Resp BP 03/21/20 15:40 36.3 C L 62 18 03/21/20 14:45 36.8 C 59 L 18 03/21/20 13:14 36.9 C 60 03/21/20 12:40 61 169/67 H 03/21/20 12:20 60 167/72 H 03/21/20 12:00 60 153/79 H 03/21/20 11:40 60 146/67 H 03/21/20 11:20 62 132/59 L 03/21/20 11:00 60 127/53 L 03/21/20 10:40 60 142/61 H 03/21/20 10:36 61 03/21/20 10:20 61 136/63 03/21/20 10:00 61 124/52 L 03/21/20 09:40 0 L 113/53 L 03/21/20 09:20 60 115/53 L 03/21/20 09:00 60 123/53 L 03/21/20 08:51 66 126/56 L 03/21/20 08:43 36.7 C 60 03/21/20 07:30 36.6 C 64 18 BP Pulse Ox 03/21/20 15:40 125/60 100 03/21/20 14:45 168/72 H 100 03/21/20 13:14 150/69 H 03/21/20 12:40 03/21/20 12:20 03/21/20 12:00 03/21/20 11:40 03/21/20 11:20 03/21/20 11:00 03/21/20 10:40 03/21/20 10:36 03/21/20 10:20 03/21/20 10:00 03/21/20 09:40 03/21/20 09:20 03/21/20 09:00 03/21/20 08:51 03/21/20 08:43 03/21/20 07:30 127/68 97 (1) Diabetes mellitus, type II Chronic kidney disease stage: on chronic dialysis Diabetes mellitus c omplication detail: with chronic kidney disease Diabetes mellitus complication status: with kidney complications Diabetes mellitus lobsterman insulin use: unspecified fpc insulin use status Qualified Code(s): E11.22 - 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 diabetic chronic kidney disease; N18.6 - End stage renal disease; Z99.2 - Dependence on renal dialysis (2) Nausea & vomiting Vomiting Intractability: intractable Vomiting type: unspecified Qualified Code(s): R11.2 - Nausea with vomiting, unspecified (3) HTN (hypertension) Hypertension type: unspecified Qualified Code(s): I10 - Essential (primary) hypertension
[2020-03-21] MEDS ORDERED: PHYTONADIONE 5 MG TAB PO STA (19:10)
[2020-03-21] MEDS ORDERED: INSULIN GLARGINE SOLOSTAR 100 UNITS/ML 3 ML PEN SC SCH (21:00)
[2020-03-21] MEDS: ATORVASTATIN 40 MG TAB PO SCH (21:05)
[2020-03-21 21:10] LABS: Cdiff Antigen Positive; Cdiff Toxin A+B Negative Cdiff Toxin (Negative)
[2020-03-21] MEDS: LACTOBACILLUS ACIDOPHILUS (FLORANEX) TAB PO SCH (21:23)
[2020-03-22] MEDS ORDERED: INSULIN HUMAN REGULAR PER UNIT 4 UNITS in SYRINGE 3.96 ML IV STA (01:49)
[2020-03-22] MEDS: PIPERACILLIN/TAZOBACTAM 3.375 GM in DEXTROSE 5% 100 ML IV SCH ×2 (02:07→14:11)
[2020-03-22 07:18] LABS: INR 1.8 (0.9-1.1); Prothrombin Time 18.8 Seconds (9.0-12.0)
--- NOTE | 2020-03-22 07:43 | Communication Note ---
Date of Service: March 22, 2020 pt is s/p Hysterectomy Pelvic uSG cancelled as will not provide any further information Kateryna Dougherty MD
[2020-03-22 07:45] LABS: Albumin Globulin Ratio 0.8 (0.9-2); Albumin Level 3.2 gm/dl (3.4-5.0); BUN Creatinine Ratio 6.9 (10-20); Calcium 8.5 mg/dl (8.5-10.1); Creatinine Clr Calc Pharmacy 8.2 ml/min; Est GFR (African American) 8.2; Est GFR (Non-African American) 7.1; Globulin 3.8 gm/dl (2.5-4.0); Potassium 3.9 mmol/L (3.5-5.1)
[2020-03-22] MEDS ORDERED: PHARMACY GLYCEMIC MGMT CONSULT PRN (07:59)
[2020-03-22] MEDS ORDERED: INSULIN GLARGINE SOLOSTAR 100 UNITS/ML 3 ML PEN SC STA (08:13)
--- NOTE | 2020-03-22 08:27 | Gastroenterology Progress Note ---
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 Paracentesis done = yielding small volume 110 cc fluid; culture pending for SBP. Pt noting diarrhea since admission. C. diff + for gene but neg for toxin; this indicates she is a carrier and doesn't require treatment. Other labs are stable. - Await GI path panel results - Can use Colestipol 1 gm BID for loose stool - Ok to try probiotics as well - Await peritoneal fluid culture results - Continue PPI BID - Antiemetics PRN - Pt follows with us in GI for her liver disease; should have f/u after discharge; pt is also overdue for colonoscopy; consider EUS/LB for w/u of liver disease (pt had declined in the past). Consider GES if persistent n/v - Avoid ETOH - Tylenol < 2 gm daily if using - GI will sign off; please call with questions Admission and Anticipated Discharge Date Admission Date: March 19, 2020 Supervising Physician Co-Signing Physician Notes I performed a history and physical examination of the patient today, including specifically on physical exam - soft abdomen. I have discussed the patient's management with the advanced practitioner. Please refer to the nurse practitioner's note for the documented findings and plan of care. Symptoms resolved. Continue work up electively as OP. Recall GI if needed. Subjective Pt continues with loose stool; had 4 episodes overnight and this AM. Denies melena, hematochezia. C. diff gene +, but toxin (-). GI path panel pending. Physical Exam Constitutional: WD/WN, vitals as above Eyes: + anicteric sclerae Respiratory: normal respiratory effort Skin: no rashes, warm and dry Psychiatric: A+Ox3, euthymic affect Results & Data ([facility]) Vital Signs (Past 12 Hours) Vital Signs Temp Pulse Pulse Resp BP Pulse Ox 03/22/20 07:03 37.0 C 67 16 144/62 H 100 03/21/20 23:18 36.8 C 62 16 132/69 98 03/21/20 21:04 73 136/66 Laboratory Results 03/22/20 03/22/20 03/22/20 Range/Units 11:46 10:41 10:40 PT (9.0-12.0) Seconds INR (0.9-1.1) Sodium Potassium Chloride Carbon Dioxide Anion Gap BUN Creatinine Est Cr Clr Drug Dosing Est GFR ( Amer) Est GFR (Non-Af Amer) BUN/Creatinine Ratio Glucose POC Glucose 287 H 383 H* 358 H* (70-99) mg/dl Calcium Total Bilirubin (0.2-1) mg/dl AST (15-37) U/L ALT (12-78) U/L Alkaline Phosphatase (45-117) U/L Total Protein (6.4-8.2) gm/dl Albumin (3.4-5.0) gm/dl Globulin (2.5-4.0) gm/dl Albumin/Globulin Ratio (0.9-2) Fluid Neutrophils % % Fluid Lymphocytes % % Fluid Eosinophils % % Fluid Basophils % % Fluid Meso/Macro/[place] % % Peritoneal Color Peritoneal Appearance Peritoneal WBC (0-300) /ul Peritoneal RBC /uL Peritoneal Tot Protein g/dl Peritoneal Albumin g/dl Peritoneal LDH U/L Peritoneal Glucose mg/dl Stool Occult Bld Scrn (Negative) Stl C. diff Tox B Gene (Neg) Stl C.difficile Tox A&B (Negative) 03/22/20 03/22/20 03/22/20 Range/Units 07:39 07:38 06:34 PT 18.8 H (9.0-12.0) Seconds INR 1.8 H (0.9-1.1) Sodium Potassium Chloride Carbon Dioxide Anion Gap BUN Creatinine Est Cr Clr Drug Dosing Est GFR ( Amer) Est GFR (Non-Af Amer) BUN/Creatinine Ratio Glucose POC Glucose 304 H* 315 H* (70-99) mg/dl Calcium Total Bilirubin (0.2-1) mg/dl AST (15-37) U/L ALT (12-78) U/L Alkaline Phosphatase (45-117) U/L Total Protein (6.4-8.2) gm/dl Albumin (3.4-5.0) gm/dl Globulin (2.5-4.0) gm/dl Albumin/Globulin Ratio (0.9-2) Fluid Neutrophils % % Fluid Lymphocytes % % Fluid Eosinophils % % Fluid Basophils % % Fluid Meso/Macro/[place] % % Peritoneal Color Peritoneal Appearance Peritoneal WBC (0-300) /ul Peritoneal RBC /uL Peritoneal Tot Protein g/dl Peritoneal Albumin g/dl Peritoneal LDH U/L Peritoneal Glucose mg/dl Stool Occult Bld Scrn (Negative) Stl C. diff Tox B Gene (Neg) Stl C.difficile Tox A&B (Negative) 03/22/20 03/22/20 03/22/20 Range/Units 06:34 03:19 01:25 PT (9.0-12.0) Seconds INR (0.9-1.1) Sodium 132 L Potassium 3.9 Chloride 96 L Carbon Dioxide 24 Anion Gap 12.0 H BUN 38 H D Creatinine 5.49 H* D Est Cr Clr Drug Dosing 8.2 Est GFR ( Amer) 8.2 Est GFR (Non-Af Amer) 7.1 BUN/Creatinine Ratio 6.9 L Glucose 280 H POC Glucose 285 H 383 H* (70-99) mg/dl Calcium 8.5 Total Bilirubin 1.0 (0.2-1) mg/dl AST 25 (15-37) U/L ALT 27 (12-78) U/L Alkaline Phosphatase 162 H (45-117) U/L Total Protein 7.0 (6.4-8.2) gm/dl Albumin 3.2 L (3.4-5.0) gm/dl Globulin 3.8 (2.5-4.0) gm/dl Albumin/Globulin Ratio 0.8 L (0.9-2) Fluid Neutrophils % % Fluid Lymphocytes % % Fluid Eosinophils % % Fluid Basophils % % Fluid Meso/Macro/[place] % % Peritoneal Color Peritoneal Appearance Peritoneal WBC (0-300) /ul Peritoneal RBC /uL Peritoneal Tot Protein g/dl Peritoneal Albumin g/dl Peritoneal LDH U/L Peritoneal Glucose mg/dl Stool Occult Bld Scrn (Negative) Stl C. diff Tox B Gene (Neg) Stl C.difficile Tox A&B (Negative) 03/21/20 03/21/20 03/21/20 Range/Units Unknown Unknown 21:19 PT (9.0-12.0) Seconds INR (0.9-1.1) Sodium Potassium Chloride Carbon Dioxide Anion Gap BUN Creatinine Est Cr Clr Drug Dosing Est GFR ( Amer) Est GFR (Non-Af Amer) BUN/Creatinine Ratio Glucose POC Glucose (70-99) mg/dl Calcium Total Bilirubin (0.2-1) mg/dl AST (15-37) U/L ALT (12-78) U/L Alkaline Phosphatase (45-117) U/L Total Protein (6.4-8.2) gm/dl Albumin (3.4-5.0) gm/dl Globulin (2.5-4.0) gm/dl Albumin/Globulin Ratio (0.9-2) Fluid Neutrophils % 37 % Fluid Lymphocytes % 27 % Fluid Eosinophils % 0 % Fluid Basophils % 0 % Fluid Meso/Macro/[place] % 36 % Peritoneal Color ROMAN Peritoneal Appearance CLOUDY Peritoneal WBC 290 (0-300) /ul Peritoneal RBC 06426 /uL Peritoneal Tot Protein 4.6 g/dl Peritoneal Albumin 2.5 g/dl Peritoneal LDH 96 U/L Peritoneal Glucose 190 mg/dl Stool Occult Bld Scrn Positive A (Negative) Stl C. diff Tox B Gene (Neg) Stl C.difficile Tox A&B (Negative) 03/21/20 03/21/20 03/21/20 Range/Units 20:40 20:38 16:31 PT (9.0-12.0) Seconds INR (0.9-1.1) Sodium Potassium Chloride Carbon Dioxide Anion Gap BUN Creatinine Est Cr Clr Drug Dosing Est GFR ( Amer) Est GFR (Non-Af Amer) BUN/Creatinine Ratio Glucose POC Glucose 376 H* 370 H* 245 H (70-99) mg/dl Calcium Total Bilirubin (0.2-1) mg/dl AST (15-37) U/L ALT (12-78) U/L Alkaline Phosphatase (45-117) U/L Total Protein (6.4-8.2) gm/dl Albumin (3.4-5.0) gm/dl Globulin (2.5-4.0) gm/dl Albumin/Globulin Ratio (0.9-2) Fluid Neutrophils % % Fluid Lymphocytes % % Fluid Eosinophils % % Fluid Basophils % % Fluid Meso/Macro/[place] % % Peritoneal Color Peritoneal Appearance Peritoneal WBC (0-300) /ul Peritoneal RBC /uL Peritoneal Tot Protein g/dl Peritoneal Albumin g/dl Peritoneal LDH U/L Peritoneal Glucose mg/dl Stool Occult Bld Scrn (Negative) Stl C. diff Tox B Gene (Neg) Stl C.difficile Tox A&B (Negative) 0903/21/20 03/21/20 Range/Units 15:23 15:23 15:23 PT 40.3 H (9.0-12.0) Seconds INR 4.1 H (0.9-1.1) Sodium 136 Cancelled Potassium 3.7 Cancelled Chloride 97 L Cancelled Carbon Dioxide 26 Cancelled Anion Gap 12.0 H Cancelled BUN 25 H Cancelled Creatinine 4.40 H D Cancelled Est Cr Clr Drug Dosing 10.2 Cancelled Est GFR ( Amer) 10.7 Cancelled Est GFR (Non-Af Amer) 9.2 Cancelled BUN/Creatinine Ratio 5.8 L Cancelled Glucose 169 H Cancelled POC Glucose (70-99) mg/dl Calcium 9.1 Cancelled Total Bilirubin (0.2-1) mg/dl AST (15-37) U/L ALT (12-78) U/L Alkaline Phosphatase (45-117) U/L Total Protein (6.4-8.2) gm/dl Albumin (3.4-5.0) gm/dl Globulin (2.5-4.0) gm/dl Albumin/Globulin Ratio (0.9-2) Fluid Neutrophils % % Fluid Lymphocytes % % Fluid Eosinophils % % Fluid Basophils % % Fluid Meso/Macro/[place] % % Peritoneal Color Peritoneal Appearance Peritoneal WBC (0-300) /ul Peritoneal RBC /uL Peritoneal Tot Protein g/dl Peritoneal Albumin g/dl Peritoneal LDH U/L Peritoneal Glucose mg/dl Stool Occult Bld Scrn (Negative) Stl C. diff Tox B Gene (Neg) Stl C.difficile Tox A&B (Negative) 03/21/20 03/21/20 Range/Units 15:18 14:32 PT (9.0-12.0) Seconds INR (0.9-1.1) Sodium Potassium Chloride Carbon Dioxide Anion Gap BUN Creatinine Est Cr Clr Drug Dosing Est GFR ( Amer) Est GFR (Non-Af Amer) BUN/Creatinine Ratio Glucose POC Glucose 171 H (70-99) mg/dl Calcium Total Bilirubin (0.2-1) mg/dl AST (15-37) U/L ALT (12-78) U/L Alkaline Phosphatase (45-117) U/L Total Protein (6.4-8.2) gm/dl Albumin (3.4-5.0) gm/dl Globulin (2.5-4.0) gm/dl Albumin/Globulin Ratio (0.9-2) Fluid Neutrophils % % Fluid Lymphocytes % % Fluid Eosinophils % % Fluid Basophils % % Fluid Meso/Macro/[place] % % Peritoneal Color Peritoneal Appearance Peritoneal WBC (0-300) /ul Peritoneal RBC /uL Peritoneal Tot Protein g/dl Peritoneal Albumin g/dl Peritoneal LDH U/L Peritoneal Glucose mg/dl Stool Occult Bld Scrn (Negative) Stl C. diff Tox B Gene Positive Cdiff Gene H (Neg) Stl C.difficile Tox A&B Negative Cdiff Toxin (Negative) (1) Nausea & vomiting Vomiting Intractability: intractable Vomiting type: unspecified Qualified Code(s): R11.2 - Nausea with vomiting, unspecified
[2020-03-22] MEDS: INSULIN ASPART 100 UNITS/ML 3 ML PEN SC SCH ×4 (08:36→20:39)
[2020-03-22] MEDS: LACTOBACILLUS ACIDOPHILUS (FLORANEX) TAB PO SCH ×4 (08:37→20:37)
[2020-03-22] MEDS: HydrALAZINE TAB 50 MG TAB PO SCH ×3 (08:37→20:37)
[2020-03-22] MEDS: PANTOprazole 40 MG TAB PO SCH (08:37)
[2020-03-22] MEDS: FLUTICASONE PROPIONATE NA SPR 16 GM BTL NAE SCH ×2 (08:38→23:15)
[2020-03-22] MEDS: TORSEMIDE 20 MG TAB PO SCH (08:38)
[2020-03-22] MEDS: AMIODARONE 200 MG TAB PO SCH (08:38)
[2020-03-22] MEDS: carvediloL 25 MG TAB PO SCH ×2 (08:38→20:37)
--- NOTE | 2020-03-22 08:38 | Pharmacy Report ---
Glycemic Control Consultation - Date of Service March 22, 2020 - Scope Scope: Glycemic Pharmacist consulted for glycemic control and to write orders per [facility] inpatient glycemic control protocol. - Objective Weight: 65.7 kg Accuchecks BSG (last 24hrs): 03/21/20 03/21/20 03/21/20 14:32 15:23 15:23 Glucose Cancelled 169 H POC Glucose 171 H 03/21/20 03/21/20 03/21/20 16:31 20:38 20:40 Glucose POC Glucose 245 H 370 H* 376 H* 03/22/20 03/22/20 03/22/20 01:25 03:19 06:34 Glucose 280 H POC Glucose 383 H* 285 H 03/22/20 03/22/20 07:38 07:39 Glucose POC Glucose 315 H* 304 H* Laboratory Data (last 24hrs): 03/21/20 03/21/20 03/22/20 15:23 15:23 06:34 Potassium Cancelled 3.7 3.9 Carbon Dioxide Cancelled 26 24 Anion Gap Cancelled 12.0 H 12.0 H Creatinine Cancelled 4.40 H D 5.49 H* D Est Cr Clr Drug Dosing Cancelled 10.2 8.2 HbA1c: Hemoglobin A1c 7.2 % (4.5-5.6) H 03/20/20 07:35 - Recent Pertinent Medications Outpatient Anti-diabetic Regimen: * Lantus 16 units, Novolog ssi * A1c = 7.2 % 03/20/20 The patient is currently receiving: * Correctional Insulin: Novolog Correction per scale ACHS Goal Range: Low 100 mg/dL - High 140 mg/dL Correction Factor: 10 mg/dL/unit * Prandial insulin: Per carb ratio of 1 unit per 8 grams CHO consumed Risk Factors for Insulin Resistance: * Diet: yes - Assessment & Plan Assessment & Plan: ASSESSMENT: * Patient admitted with nausea/vomiting. PMHx significant for ESRD on dialysis, type 2 diabetes. Gl consulted and possible paracentesis. * Pharmacy consulted for glycemic management. Patient managed on basal/bolus insulin at home. Basal insulin had been held on admission due to nausea/vomiting. BSGs elevated this morning in 300s, likely due to lack of basal and increased PO intake. Per provider notes, N/V now resolved and patient tolerating solids * Patient known to glycemic service from other admissions. Plan to utilize similar parameters. Will given an extra 10 units of basal insulin this AM since BSGs elevated. Recheck after 2 hours of giving insulin this AM, trending up to 383 mg/dL - plan to start insulin gtt. Notified provider, plan for patient to be here for at least another day or two PLAN FOR INPATIENT GLYCEMIC CONTROL: * Starting insulin gtt / moderate stress : goal 110-180 * Bolus insulin - per insulin calculator * Please note that the plan above was derived based on current level of insulin resistance and hospital stress. These recommendations are appropriate for inpatient admission only. Plan of care upon discharge will need to be reassessed to avoid potential outpatient hypo/hyperglycemia. Thank you.
[2020-03-22] MEDS: DOCUSATE SODIUM 100 MG CAP PO SCH (08:42)
[2020-03-22] MEDS ORDERED: INSULIN HUMAN REGULAR IV BOLUS 1.5 UNITS in SYRINGE 0 ML IV ONE (11:15)
[2020-03-22] MEDS: INSULIN REGULAR 250 UNITS in SODIUM CHLORIDE 0.9% 247.5 ML IV SCH ×2 (11:26→13:04)
--- NOTE | 2020-03-22 13:43 | Hospitalist Progress Note ---
Date of Service March 22, 2020 Assessment & Plan (1) Cirrhosis: Cirrhosis seen on imaging with significant peritoneal ascites. Tap was performed and continuing Zosyn until peritoneal culture results return. This is negative and Zosyn was stopped. Cont to monitor clinically for improvement and follow-up with GI as outpatient. (2) UTI (urinary tract infection): UTI present but patient doesn't make urine. She has had three days of Zosyn therapy to date, so will stop as able to see if this helps her diarrhea. Mcdermott sensitive E coli present in urine culture. Some persistent suprapubic discomfort present, possibly related to ongoing diarrhea. Pyridium is contraindicated in renal disease. Stop abx and monitor her clinically. 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 Her toxin screen is negative so no treatment indicated at this time. Colestipol and PRN Bentyl given for diarrhea and discomfort per GI. (4) Diarrhea: Uncertain source. Doesn't appear to be infected. May be a side effect of broad spectrum abx. Per GI, use Colestipol and Bentyl for supportive care at this time. IVF ongoing. Replace lytes as tolerated. Zosyn stopped with no evidence of infected peritoneal fluid. (5) Diabetes mellitus, type II: 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 superintendent container terminal current use of insulin. Currently hyperglycemic and on insulin drip--inpatient glycemic pharmacist is assisting with management. Her home Lantus had been held for several days this admission and insulin drip needed to catch up on this. (6) Nausea & vomiting: began during HS session on Sat where she was sent home one hour early from her treatment. N/V restarted again the following morning and she presented to the ER and was admitted. This has since stopped and she is eating well (7) ESRD (end stage renal disease) on dialysis: Patient is On dialysis every Friday//Friday, cont management per Nephrology. Renally dose all new medications. (8) Volume overload: Some Lasix given this admission, however, she doesn't produce urine. Fluid management has been improved through HD. Currently lungs are clear and she is not short of breath or hypoxic. Appears resolved. (9) HTN (hypertension): Around goal-cont hydralazine, torsemide 20mg qAM, carvedilol 50mg BID per home regimen. (10) Vaginal bleeding: outpatient [facility]DIN[facility] SEAMAN exam recommended after peripheral discussion with [facility]DIN[facility] SEAMAN rehabilitation physician here. Patient is not sure if the vagina was the actual source of the spotting in her underwear that she saw yesterday (?UTI vs hemorrhoids vs v. This issue has resolved and is not urgent. Patient has a h/o partial hysterectomy in the past. (11) Supratherapeutic INR: vitamin K 2.5 mg given initially during admission due to hematochezia with elevated INR of 4.1. Trend this and restart coumadin once it is certain there is no further bleeding. (12) Afib: Known history of this. Coumadin held. Cont rate control efforts with coreg per home regimen and also amiodarone. (13) Thrombocytopenia: Appears chronic per record review. May be from undiagnosed cirrhosis. No clear active bleeding today. Would continue to hold coumadin for now. (14) DVT prophylaxis: Heparin for DVT prophy while off therapeutic coumadin. Full Code Dispo-to home when medically stable. Cheryl Ricketts DO [facility] Hospitalist Admission and Anticipated Discharge Date Admission Date: March 19, 2020 Subjective 4 episodes of loose stool-slight abdominal pain in a lower band distribution, not related to BM necessarily. She is tolerating PO. Denies melena, hematochezia. C. diff gene +, but toxin (-). Denies n/v and she is tolerating PO. Instructed to avoid dairy and caffeine. Pt also reports vaginal bleeding a couple of days ago. Reports a h/o partial hysterectomy in the past. She still has some lower abdominal pressure to palpation today. Denies F/C. Doesn't make urine. Review of Systems Review of Systems: All systems reviewed & are unremarkable except as noted in Subjective Physical Exam Physical Exam: CONSTITUTIONAL: WNWD, vitals as above, generally well- appearing EYES: normal conjunctivae, no scleral icterus ENT: external ear and nose normal, MMM, poor dentition RESPIRATORY: clear to auscultation bilaterally, no crackles, rales or wheezes, normal respiratory effort CARDIOVASCULAR: regular rate and rhythm, S1 and 2 heard without murmurs, gallops or rubs, no JVD, no peripheral edema GASTROINTESTINAL: normal bowel sounds, soft, nontender except for some pressure to palpation in the suprapubic region, protuberant, nondistended MUSCULOSKELETAL: moves all extremities with ease, head is normocephalic and atraumatic SKIN: warm and dry, palpable graft in LUE NEUROLOGIC: No facial palsy, no dysarthria. CN 2-12 grossly intact, normal cognition, normal speech, no tremor PSYCHIATRIC: alert cooperative and oriented to person, place and time. Results & Data Results & Data ([facility]) Vital Signs (Past 12 Hours) Vital Signs Temp Pulse Resp BP Pulse Ox 03/22/20 07:03 37.0 C 67 16 144/62 H 100 Laboratory Results BMP 03/21/20 03/21/20 03/22/20 15:23 15:23 06:34 Sodium Cancelled 136 132 L Potassium Cancelled 3.7 3.9 Chloride Cancelled 97 L 96 L Carbon Dioxide Cancelled 26 24 BUN Cancelled 25 H 38 H D Creatinine Cancelled 4.40 H D 5.49 H* D Glucose Cancelled 169 H 280 H Calcium Cancelled 9.1 8.5 Liver Function 03/22/20 Range/Units 06:34 Total Bilirubin 1.0 (0.2-1) mg/dl AST 25 (15-37) U/L ALT 27 (12-78) U/L Alkaline Phosphatase 162 H (45-117) U/L Albumin 3.2 L (3.4-5.0) gm/dl Medications Administered Current Inpatient Medications Acetaminophen (Acetaminophen 325 Mg Tab) 650 mg PO Q4H PRN PRN Reason: Pain or Fever Stop: 04/18/20 16:18 Last Admin: 03/20/20 02:21 Dose: 650 mg Documented by: Albuterol (Albuterol Hfa 8 Gm Inhaler) 2 puffs INH Q4 PRN PRN Reason: Shortness Of Breath Or Wheezing Stop: 04/18/20 16:18 Amiodarone HCl (Amiodarone 200 Mg Tab) 200 mg PO QAM [facility] Stop: 04/19/20 08:59 Last Admin: 03/22/20 08:38 Dose: 200 mg Documented by: Atorvastatin Calcium (Atorvastatin 40 Mg Tab) 40 mg PO HS [facility] Stop: 04/18/20 20:59 Last Admin: 03/21/20 21:05 Dose: 40 mg Documented by: Carvedilol (Carvedilol 25 Mg Tab) 50 mg PO BID [facility] Stop: 04/18/20 20:59 Last Admin: 03/22/20 08:38 Dose: 50 mg Documented by: Colestipol HCl (Colestipol Hcl 1 Gm Tab) 1 gm PO BID [facility] Stop: 04/21/20 12:14 Dextrose (Dextrose 50% 50 Ml Syringe) 25 - 50 ml IV UD PRN; Protocol PRN Reason: Hypoglycemia Protocol Stop: 04/18/20 16:18 Docusate Sodium (Docusate Sodium 100 Mg Cap) 100 mg PO QAM [facility] Stop: 04/19/20 08:59 Last Admin: 03/22/20 08:42 Dose: Not Given Documented by: Fluticasone Propionate (Fluticasone Propionate Na Spr 16 Gm Btl) 2 sprays CANDY BID [facility] Stop: 04/18/20 20:59 Last Admin: 03/22/20 08:38 Dose: 2 sprays Documented by: Glucagon (Glucagon For Inj 1 Mg Vial) 1 mg SQ UD PRN; Protocol PRN Reason: Hypoglycemia Protocol Stop: 04/18/20 16:18 Glucose (Glucose 10 Tabs/Tube) 4 - 8 tabs PO UD PRN; Protocol PRN Reason: Hypoglycemia Protocol Stop: 04/18/20 16:18 Glucose (Glucose 40% Gel 15 Gm Tube) 15 - 30 gm PO UD PRN; Protocol PRN Reason: Hypoglycemia Protocol Stop: 04/18/20 16:18 Hydralazine HCl (Hydralazine Tab 50 Mg Tab) 50 mg PO TID [facility] Stop: 04/18/20 20:59 Last Admin: 03/22/20 08:37 Dose: 50 mg Documented by: Piperacillin Sod/Tazobactam (Sod 3.375 gm/ Dextrose) 115 mls @ 28.75 mls/hr IV Q12H [facility]; Protocol Stop: 03/25/20 01:59 Last Infusion: 03/22/20 06:46 Dose: Infused Documented by: Insulin Human Regular 250 (units/ Sodium Chloride) 250 mls @ 1.6 mls/hr IV .Q24H [facility]; Protocol Stop: 04/21/20 11:14 Last Admin: 03/22/20 13:04 Dose: 1.6 units/hr, 1.6 mls/hr Documented by: Insulin Aspart (Insulin Aspart 100 Units/Ml 3 Ml Pen) 0 units SC ACHS [facility] Stop: 04/21/20 11:29 Last Admin: 03/22/20 12:23 Dose: 2 units Documented by: Insulin Glargine (Insulin Glargine Solostar 100 Units/Ml 3 Ml Pen) 16 units SC PM [facility] Stop: 04/21/20 20:59 Lactobacillus Acidophilus (Lactobacillus Acidophilus (Floranex) Tab) 4 tab PO QIDM [facility] Stop: 04/20/20 20:59 Last Admin: 03/22/20 12:24 Dose: 4 tab Documented by: Lidocaine/Prilocaine (Lidocaine/Prilocaine 2.5% Ea Crm) 1 ea EXT UD PRN PRN Reason: BEFORE DIALYSIS Stop: 04/18/20 16:18 Lorazepam (Lorazepam 0.5 Mg Tab) 0.5 mg PO TID PRN PRN Reason: Anxiety Stop: 04/18/20 16:18 Miscellaneous (Carbohydrates For Hypoglycemia ) 15 - 30 gm PO UD PRN PRN Reason: Hypoglycemia Protocol Stop: 04/18/20 16:18 Miscellaneous Information (Piperacill/Tazobac Consult Active) 1 ea N/A UD PRN PRN Reason: Consult Stop: 04/18/20 16:26 Miscellaneous Information (Pharmacy Glycemic Mgmt Consult) 1 ea N/A UD PRN PRN Reason: Consult Stop: 04/21/20 07:58 Pantoprazole Sodium (Pantoprazole 40 Mg Tab) 40 mg PO QAM [facility] Stop: 04/20/20 08:59 Last Admin: 03/22/20 08:37 Dose: 40 mg Documented by: Polyethylene Glycol (Polyethylene (Miralax) 17 Gm Pack) 17 gm PO DAILY PRN PRN Reason: Constipation Stop: 04/18/20 16:18 Torsemide (Torsemide 20 Mg Tab) 20 mg PO QAM [facility] Stop: 04/19/20 11:44 Last Admin: 03/22/20 08:38 Dose: 20 mg Documented by: Warfarin Sodium (Warfarin Sod 4 Mg Tab) 4 mg PO HS [facility] Stop: 04/18/20 20:59 Last Admin: 03/19/20 20:27 Dose: 4 mg Documented by: (1) Diabetes mellitus, type II Chronic kidney disease stage: on chronic dialysis Diabetes mellitus complication detail: with chronic kidney disease Diabetes mellitus complication status: with kidney complications Diabetes mellitus chcf insulin use: unspecified superintendent container terminal insulin use status Qualified Code(s): E11.22 - 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 diabetic chronic kidney disease; N18.6 - End stage renal disease; Z99.2 - Dependence on renal dialysis (2) Nausea & vomiting Vomiting Intractability: intractable Vomiting type: unspecified Qualified Code(s): R11.2 - Nausea with vomiting, unspecified (3) HTN (hypertension) Hypertension type: unspecified Qualified Code(s): I10 - Essential (primary) hypertension
[2020-03-22] MEDS: COLESTIPOL HCL 1 GM TAB PO SCH ×2 (14:04→20:36)
[2020-03-22] MEDS: ATORVASTATIN 40 MG TAB PO SCH (20:36)
[2020-03-22] MEDS ORDERED: INSULIN GLARGINE SOLOSTAR 100 UNITS/ML 3 ML PEN SC SCH ×2 (21:00)
[2020-03-23] MEDS: INSULIN ASPART 100 UNITS/ML 3 ML PEN SC SCH ×6 (00:23→21:03)
[2020-03-23] MEDS ORDERED: SODIUM CHLORIDE 0.9% 1000ML 1,000 ML IV PRN (07:24)
--- NOTE | 2020-03-23 07:30 | Nephrology Progress Note ---
Date of Service March 23, 2020 Assessment & Plan (1) End-stage renal disease (ESRD): On Friday hemodialysis. tolerted 3L off on 03/21. for 2.5 L fluid removal target today. She has mild volume overload and is tolerating more aggressive than normal fluid removal. Blood pressures and heart rate are acceptable. Serum chemistries acceptable. medications reviewed and appropriate. Next treatment on Friday as inpatient or outpatient depending on clinical status (2) Nausea & vomiting: Resolved since admission. Taking po. Continue to monitor. Question GI virus contributing to this and to loose stools (3) Ascites: GI following and per their recommendations; we will continue aggressive fluid removal as tolerated at dialysis; f/u cx Admission and Anticipated Discharge Date Admission Date: March 19, 2020 Subjective sitting up in chair, hungry; no further N/V; tolerating po. no sob, no abd pain, moving bowels but no diarrhea. Review of Systems Review of Systems: All systems reviewed & are unremarkable except as noted in HPI & below Physical Exam Constitutional: well developed and well nourished; no acute distress on RA Eyes: EOM intact bilaterally ENMT: Ears: no external ear abnormality Nose: no external nose abnormality Mouth: + dry oral mucous membranes Neck: no nuchal rigidity Respiratory: normal respiratory effort Auscultation: + diminished lung sounds (But clear) Cardiovascular: Rate/Rhythm: regular rate and regular rhythm Extremities: + edema (At most trace bilateral ankle) and + AV fistula (Positive thrill and bruit) Gastrointestinal (Abdomen): Inspection/Auscultation: + abdomen distended (slight) and normal bowel sounds Percussion/Palpation: abdomen soft and + ascites (At most trace); abdomen nontender and no guarding Musculoskeletal: Extremities: strength 5/5 throughout Skin: no rashes, warm and dry Neurologic: bustamante, no tremor, fluent speech Psychiatric: A+Ox3, euthymic affect Results & Data ([facility]) Vital Signs (Past 12 Hours) Vital Signs Temp Pulse Pulse Resp BP Pulse Ox 03/23/20 07:19 36.8 C 60 18 130/64 99 03/22/20 23:21 36.8 C 62 18 148/70 H 96 Laboratory Results reviewed; fluid cx results pending (1) Ascites Ascites type: other type Qualified Code(s): R18.8 - Other ascites (2) Nausea & vomiting Vomiting Intractability: intractable Vomiting type: unspecified Qualified Code(s): R11.2 - Nausea with vomiting, unspecified
[2020-03-23] MEDS: LACTOBACILLUS ACIDOPHILUS (FLORANEX) TAB PO SCH ×4 (08:22→21:02)
[2020-03-23] MEDS: ACETAMINOPHEN 325 MG TAB PO PRN ×3 (08:25→23:19)
[2020-03-23] MEDS: DOCUSATE SODIUM 100 MG CAP PO SCH (08:26)
[2020-03-23] MEDS: PANTOprazole 40 MG TAB PO SCH (08:26)
[2020-03-23 08:27] LABS: Hematocrit (blood only) 29.8 % (37-47); Hemoglobin 10.2 g/dL (12.0-16.0); Mean Corpuscular Hemoglobin 32.4 pg (25-34); Mean Corpuscular Hgb Conc 34.2 g/dL (32-36); Mean Corpuscular Volume 94.6 fL (80-100); RDW Coefficient of Variation 14.5 % (11.5-14.5); Red Blood Count 3.15 M/uL (4.2-5.4); White Blood Count 5.11 K/uL (4.8-10.8)
[2020-03-23] MEDS: carvediloL 25 MG TAB PO SCH ×2 (08:27→21:00)
[2020-03-23] MEDS: COLESTIPOL HCL 1 GM TAB PO SCH ×2 (08:29→20:58)
[2020-03-23] MEDS: HydrALAZINE TAB 50 MG TAB PO SCH ×3 (08:30→20:58)
[2020-03-23] MEDS: FLUTICASONE PROPIONATE NA SPR 16 GM BTL NAE SCH ×2 (08:30→20:59)
[2020-03-23 08:37] LABS: INR 1.3 (0.9-1.1); Prothrombin Time 13.6 Seconds (9.0-12.0)
[2020-03-23 08:44] LABS: Mean Platelet Volume 11.5 fL (7.4-10.4); Platelet Count 64 K/uL (130-400)
[2020-03-23 09:02] LABS: BUN Creatinine Ratio 7.5 (10-20); Calcium 9.2 mg/dl (8.5-10.1); Creatinine Clr Calc Pharmacy 6.4 ml/min; Est GFR (Non-African American) 5.2; Magnesium 2.1 mg/dl (1.8-2.4); Phosphorus 4.8 mg/dl (2.5-4.9); Potassium 3.8 mmol/L (3.5-5.1)
[2020-03-23 09:04] LABS: Platelet Estimate Decreased (Normal)
--- NOTE | 2020-03-23 09:57 | Pharmacy Report ---
Pharmacy Glycemic Short Note 2 - Date of Service March 23, 2020 - Glycemic Short BSG Results (Last 24 hours): 03/22/20 03/22/20 03/22/20 10:40 10:41 11:46 Glucose POC Glucose 358 H* 383 H* 287 H 03/22/20 03/22/20 03/22/20 12:56 13:56 15:48 Glucose POC Glucose 237 H 173 H 186 H 03/22/20 03/22/20 03/22/20 16:42 17:52 20:20 Glucose POC Glucose 145 H 156 H 210 H 03/23/20 03/23/20 03/23/20 00:00 04:15 07:49 Glucose POC Glucose 172 H 129 H 124 H 03/23/20 08:06 Glucose 118 H POC Glucose Outpatient Anti-diabetic Regimen: * Lantus 16 units, Novolog SSI * A1c = 7.2 % 03/20/20 Risk Factors for Insulin Resistance: * Diet: T2DM ASSESSMENT: 03/23/20 * N/V has stopped and patient is eating well (30-46 g CHO/meal yesterday) * Insulin drip initiated was successfully transitioned off yesterday PM. Anticipate ability to resume prior regimen. * Previous admission reviewed - will resume similar regimen. Will attempt to get Lantus back to a once-daily qPM dosing by delaying dose today as long as BSG's tolerate and likely transition back to HS admin (similar to outpatient schedule) tomorrow 03/22/20 * Patient admitted with nausea/vomiting. PMHx significant for ESRD on dialysis, type 2 diabetes. Gl consulted and possible paracentesis. * Pharmacy consulted for glycemic management. Patient managed on basal/bolus insulin at home. Basal insulin had been held on admission due to nausea/vomiting. BSGs elevated this morning in 300s, likely due to lack of basal and increased PO intake. Per provider notes, N/V now resolved and patient tolerating solids * Patient known to glycemic service from other admissions. Plan to utilize similar parameters. Will given an extra 10 units of basal insulin this AM since BSGs elevated. Recheck after 2 hours of giving insulin this AM, trending up to 383 mg/dL - plan to start insulin gtt. Notified provider, plan for patient to be here for at least another day or two PLAN FOR INPATIENT GLYCEMIC CONTROL: * Basal insulin * Lantus 20 units SQ x1 at lunch or dinner today, then ongoing qHS starting tomorrow * Bolus insulin * NovoLog per scale ACHS or Q6hrs while NPO * Goal Range: Low 110 mg/dL - High 140 mg/dL * Correction Factor: 25 mg/dL/unit * Nutritional / Prandial insulin per carb ratio of 1 unit per 9 grams CHO consumed PLAN FOR DISCHARGE: * A1c in range for age/comorbidities but patient also on HD which complicates interpretation * No change to outpatient regimen needed at this time
[2020-03-23] MEDS: AMIODARONE 200 MG TAB PO SCH (13:51)
[2020-03-23] MEDS: TORSEMIDE 20 MG TAB PO SCH (13:52)
--- NOTE | 2020-03-23 14:14 | Hospitalist Progress Note ---
Date of Service March 23, 2020 Assessment & Plan (1) Cirrhosis: Cirrhosis seen on imaging with significant peritoneal ascites. Diagnostic paracentesis was performed on 03/21 with negative results for SBP. Zosyn was stopped on 03/22 and diarrhea resolved overnight. Follow up with GI as outpatient. Likely has thrombocytopenia and possibly some autoanticoagulation as a result of this disease process. She also reports increased bleeding during HD sessions over the past year. 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 (2) UTI (urinary tract infection): UTI present and is improved after three days of Zosyn therapy to date. Mcdermott sensitive E coli present in urine culture. Abx stopped and doing well clinically. 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 Her toxin screen is negative so no treatment indicated at this time. Colestipol and PRN Bentyl given for diarrhea and discomfort per GI. Diarrhea resolved overnight. (4) Diarrhea: Uncertain source. Doesn't appear to be infected. May be a side effect of broad spectrum abx-resolved when these were stopped. Per GI, use Colestipol and Bentyl for supportive care at this time. IVF ongoing. Replace lytes as tolerated. Zosyn stopped with no evidence of infected peritoneal fluid. 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 Hyperglycemia resolved on insulin drip overnight and cont basal/bolus insulin for today. Appreciate glycemic pharmacist assistance with management. (6) Nausea & vomiting: began during HS session on Sat where she was sent home one hour early from her treatment. N/V restarted again the following morning and she presented to the ER and was admitted. This has since stopped and she is eating well (7) ESRD (end stage renal disease) on dialysis: Patient is On dialysis every Friday//Friday, cont management per Nephrology. Renally dose all new medications. (8) Volume overload: Some Lasix given this admission, however, she doesn't produce urine. Fluid management has been improved through HD. Currently lungs are clear and she is not short of breath or hypoxic. Appears resolved. (9) HTN (hypertension): Around goal-cont hydralazine, torsemide 20mg qAM, carvedilol 50mg BID per home regimen. (10) Vaginal bleeding: outpatient [employer] exam recommended after peripheral discussion with [employer] retirement sales consultant here. Patient is not sure if the vagina was the actual source of the spotting in her underwear that she saw yesterday (?UTI vs hemorrhoids vs v. This issue has resolved and is not urgent. Patient has a h/o partial hysterectomy in the past. (11) Supratherapeutic INR: vitamin K 2.5 mg given initially during admission due to hematochezia with elevated INR of 4.1. Coumadin stopped. (12) Afib: Known history of this. Coumadin [id number] with home [employer] Operator. Cont rate control efforts with coreg per home regimen and also amiodarone. (13) Thrombocytopenia: Appears chronic per record review. May be from undiagnosed cirrhosis. No clear active bleeding today. Would continue to hold coumadin for now. (14) Anemia in ESRD (end-stage renal disease): management per Nephro (15) DVT prophylaxis: Heparin for DVT prophy while off therapeutic coumadin. Full Code Dispo-to home when medically stable. Cheryl Ricketts DO [facility] Admission and Anticipated Discharge Date Admission Date: March 19, 2020 Subjective Feels much better today although fatigued from having HD session today. She is off the insulin drip and glucose is better controlled today with her feeling better as a result She denies any pain, SOB, fevers, chills. She reported a left frontal headache this morning which is resolved. She has some dysequilibrium since HD We discussed her UTI, new diagnosis of cirrhosis and implications of this, we discussed stopping her coumadin in the setting of low Platelets and elevated INR. She also gave me some updates about he diet that she wanted to have changed. Review of Systems Review of Systems: All systems reviewed & are unremarkable except as noted in Subjective Physical Exam Physical Exam: CONSTITUTIONAL: WNWD, vitals as above, generally well- appearing EYES: normal conjunctivae, no scleral icterus ENT: external ear and nose normal, MMM, poor dentition RESPIRATORY: clear to auscultation bilaterally, no crackles, rales or wheezes, normal respiratory effort CARDIOVASCULAR: regular rate and rhythm, S1 and 2 heard without murmurs, gallops or rubs, no JVD, no peripheral edema GASTROINTESTINAL: normal bowel sounds, soft, nontender except for a small area in the LLQ laterally, suprapubic pressure has resolved since yesterday, protuberant, nondistended MUSCULOSKELETAL: moves all extremities with ease, head is normocephalic and atraumatic SKIN: warm and dry, palpable graft in LUE NEUROLOGIC: No facial palsy, no dysarthria. CN 2-12 grossly intact, normal cognition, normal speech, no tremor PSYCHIATRIC: alert cooperative and oriented to person, place and time. Results & Data Results & Data ([facility]) Vital Signs (Past 12 Hours) Vital Signs Temp Pulse Pulse Pulse Resp BP BP 03/23/20 13:03 36.8 C 60 60 172/75 H 172/75 H 03/23/20 12:40 60 175/95 H 03/23/20 12:20 60 170/80 H 03/23/20 12:00 60 180/70 H 03/23/20 11:40 60 169/67 H 03/23/20 11:20 61 174/67 H 03/23/20 11:00 60 155/59 H 03/23/20 10:40 60 156/66 H 03/23/20 10:20 60 147/63 H 03/23/20 10:00 60 155/64 H 03/23/20 09:40 60 159/68 H 03/23/20 09:20 60 158/64 H 03/23/20 09:14 36.8 C 60 03/23/20 09:03 60 154/63 H 03/23/20 07:19 36.8 C 60 18 130/64 Pulse Ox 03/23/20 13:03 03/23/20 12:40 03/23/20 12:20 03/23/20 12:00 03/23/20 11:40 03/23/20 11:20 03/23/20 11:00 03/23/20 10:40 03/23/20 10:20 03/23/20 10:00 03/23/20 09:40 03/23/20 09:20 03/23/20 09:14 03/23/20 09:03 03/23/20 07:19 99 Laboratory Results Short CBC 03/23/20 Range/Units 08:06 WBC 5.11 (4.8-10.8) K/uL Hgb 10.2 L (12.0-16.0) g/dL Hct 29.8 L (37-47) % Plt Count 64 L (130-400) K/uL BMP 03/23/20 08:06 Sodium 131 L Potassium 3.8 Chloride 94 L Carbon Dioxide 23 BUN 53 H Creatinine 7.09 H* D Glucose 118 H Calcium 9.2 Medications Administered Current Inpatient Medications Acetaminophen (Acetaminophen 325 Mg Tab) 650 mg PO Q4H PRN PRN Reason: Pain or Fever Stop: 04/18/20 16:18 Last Admin: 03/23/20 08:25 Dose: 650 mg Documented by: Albuterol (Albuterol Hfa 8 Gm Inhaler) 2 puffs INH Q4 PRN PRN Reason: Shortness Of Breath Or Wheezing Stop: 04/18/20 16:18 Amiodarone HCl (Amiodarone 200 Mg Tab) 200 mg PO QAM [facility] Stop: 04/19/20 08:59 Last Admin: 03/23/20 13:51 Dose: 200 mg Documented by: Atorvastatin Calcium (Atorvastatin 40 Mg Tab) 40 mg PO HS [facility] Stop: 04/18/20 20:59 Last Admin: 03/22/20 20:36 Dose: 40 mg Documented by: Carvedilol (Carvedilol 25 Mg Tab) 50 mg PO BID [facility] Stop: 04/18/20 20:59 Last Admin: 03/23/20 08:27 Dose: Not Given Documented by: Colestipol HCl (Colestipol Hcl 1 Gm Tab) 1 gm PO BID [facility] Stop: 04/21/20 12:14 Last Admin: 03/23/20 08:29 Dose: 1 gm Documented by: Dextrose (Dextrose 50% 50 Ml Syringe) 25 - 50 ml IV UD PRN; Protocol PRN Reason: Hypoglycemia Protocol Stop: 04/18/20 16:18 Docusate Sodium (Docusate Sodium 100 Mg Cap) 100 mg PO QAM [facility] Stop: 04/19/20 08:59 Last Admin: 03/23/20 08:26 Dose: Not Given Documented by: Fluticasone Propionate (Fluticasone Propionate Na Spr 16 Gm Btl) 2 sprays CANDY BID [facility] Stop: 04/18/20 20:59 Last Admin: 03/23/20 08:30 Dose: 2 sprays Documented by: Glucagon (Glucagon For Inj 1 Mg Vial) 1 mg SQ UD PRN; Protocol PRN Reason: Hypoglycemia Protocol Stop: 04/18/20 16:18 Glucose (Glucose 10 Tabs/Tube) 4 - 8 tabs PO UD PRN; Protocol PRN Reason: Hypoglycemia Protocol Stop: 04/18/20 16:18 Glucose (Glucose 40% Gel 15 Gm Tube) 15 - 30 gm PO UD PRN; Protocol PRN Reason: Hypoglycemia Protocol Stop: 04/18/20 16:18 Hydralazine HCl (Hydralazine Tab 50 Mg Tab) 50 mg PO TID [facility] Stop: 04/18/20 20:59 Last Admin: 03/23/20 13:53 Dose: 50 mg Documented by: Insulin Aspart (Insulin Aspart 100 Units/Ml 3 Ml Pen) 0 units SC ACHS [facility] Stop: 04/21/20 20:59 Last Admin: 03/23/20 13:57 Dose: 3 units Documented by: Insulin Glargine (Insulin Glargine Solostar 100 Units/Ml 3 Ml Pen) 20 units SC QPM [facility]; Protocol Stop: 04/22/20 16:29 Lactobacillus Acidophilus (Lactobacillus Acidophilus (Floranex) Tab) 4 tab PO QIDM [facility] Stop: 04/20/20 20:59 Last Admin: 03/23/20 13:51 Dose: 4 tab Documented by: Lidocaine/Prilocaine (Lidocaine/Prilocaine 2.5% Ea Crm) 1 ea EXT UD PRN PRN Reason: BEFORE DIALYSIS Stop: 04/18/20 16:18 Loperamide HCl (Loperamide Hcl 2 Mg Cap) 2 mg PO UD PRN PRN Reason: Diarrhea Stop: 04/21/20 19:05 Lorazepam (Lorazepam 0.5 Mg Tab) 0.5 mg PO TID PRN PRN Reason: Anxiety Stop: 04/18/20 16:18 Miscellaneous (Carbohydrates For Hypoglycemia ) 15 - 30 gm PO UD PRN PRN Reason: Hypoglycemia Protocol Stop: 04/18/20 16:18 Miscellaneous Information (Pharmacy Glycemic Mgmt Consult) 1 ea N/A UD PRN PRN Reason: Consult Stop: 04/21/20 07:58 Pantoprazole Sodium (Pantoprazole 40 Mg Tab) 40 mg PO QAM [facility] Stop: 04/20/20 08:59 Last Admin: 03/23/20 08:26 Dose: 40 mg Documented by: Polyethylene Glycol (Polyethylene (Miralax) 17 Gm Pack) 17 gm PO DAILY PRN PRN Reason: Constipation Stop: 04/18/20 16:18 Torsemide (Torsemide 20 Mg Tab) 20 mg PO QAM [facility] Stop: 04/19/20 11:44 Last Admin: 03/23/20 13:52 Dose: 20 mg Documented by: Warfarin Sodium (Warfarin Sod 5 Mg Tab) 5 mg PO DAILY@1600 [facility] Stop: 04/22/20 15:59 (1) Diabetes mellitus, type II Chronic kidney disease stage: on chronic dialysis Diabetes mellitus complication detail: with chronic kidney disease Diabetes mellitus complication status: with kidney complications Diabetes mellitus 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
[2020-03-23] MEDS ORDERED: WARFARIN SOD 5 MG TAB PO SCH (16:00)
[2020-03-23] MEDS ORDERED: INSULIN GLARGINE SOLOSTAR 100 UNITS/ML 3 ML PEN SC SCH (16:30)
[2020-03-23] MEDS: ATORVASTATIN 40 MG TAB PO SCH (20:59)
[2020-03-24] MEDS: ACETAMINOPHEN 325 MG TAB PO PRN (05:37)
[2020-03-24] MEDS ORDERED: PANTOprazole 40 MG TAB PO SCH (05:45)
[2020-03-24] MEDS: HydrALAZINE TAB 50 MG TAB PO SCH ×2 (06:38→13:10)
[2020-03-24 07:37] LABS: Hematocrit (blood only) 27.6 % (37-47); Hemoglobin 9.2 g/dL (12.0-16.0); Mean Corpuscular Hemoglobin 32.1 pg (25-34); Mean Corpuscular Hgb Conc 33.3 g/dL (32-36); Mean Corpuscular Volume 96.2 fL (80-100); Mean Platelet Volume 11.1 fL (7.4-10.4); Platelet Count 55 K/uL (130-400); RDW Coefficient of Variation 14.5 % (11.5-14.5); RDW Standard Deviation 50.9 fL (36.4-46.3); Red Blood Count 2.87 M/uL (4.2-5.4); White Blood Count 4.16 K/uL (4.8-10.8)
[2020-03-24 08:19] LABS: BUN Creatinine Ratio 6.2 (10-20); Calcium 8.8 mg/dl (8.5-10.1); Est GFR (African American) 10.3; Est GFR (Non-African American) 8.9; Potassium 3.3 mmol/L (3.5-5.1)
[2020-03-24] MEDS ORDERED: POTASSIUM CHLORIDE 20 MEQ TABCR PO STA (08:42)
[2020-03-24] MEDS: COLESTIPOL HCL 1 GM TAB PO SCH (08:48)
[2020-03-24] MEDS: AMIODARONE 200 MG TAB PO SCH (08:49)
[2020-03-24] MEDS: carvediloL 25 MG TAB PO SCH (08:49)
[2020-03-24] MEDS: DOCUSATE SODIUM 100 MG CAP PO SCH (08:49)
[2020-03-24] MEDS: LACTOBACILLUS ACIDOPHILUS (FLORANEX) TAB PO SCH ×3 (08:50→18:11)
[2020-03-24] MEDS: TORSEMIDE 20 MG TAB PO SCH (08:50)
[2020-03-24] MEDS: FLUTICASONE PROPIONATE NA SPR 16 GM BTL NAE SCH (08:51)
[2020-03-24] MEDS ORDERED: COUGH DROP (SUGAR FREE) LOZ 24 LOZ/1 BOX BUCCAL ONE (08:54)
[2020-03-24] MEDS: LOPERAMIDE HCL 2 MG CAP PO PRN ×2 (08:57→11:42)
[2020-03-24] MEDS: INSULIN ASPART 100 UNITS/ML 3 ML PEN SC SCH ×3 (08:59→17:36)
--- NOTE | 2020-03-24 11:31 | Pharmacy Report ---
Pharmacy Glycemic Short Note 2 - Date of Service March 24, 2020 - Glycemic Short BSG Results (Last 24 hours): 03/23/20 03/23/20 03/23/20 11:31 16:35 20:20 Glucose POC Glucose 123 H 174 H 144 H 03/24/20 03/24/20 07:08 07:46 Glucose 133 H POC Glucose 151 H Outpatient Anti-diabetic Regimen: * Lantus 16 units, Novolog SSI * A1c = 7.2 % 03/20/20 Risk Factors for Insulin Resistance: * Diet: T2DM ASSESSMENT: 03/24/20: * Pt has been requiring ~ 30-40 units of insulin per day with near adequate control * 20 units of basal insulin with Lantus + 14-20 units of pra ndial/correctional with NovoLog * BSGs [id number] mg/dl * AM fasting BSG is slightly above goal range at 151 mg/dl; however, the 20 units SQ Q24hr dose is not yet at steady state. This is higher than outpatient dosing and A1c is 7.2% (may be slightly inaccurate d/t HS/ESRD) so hesitant to increase basal insulin any further. Will continue 20 units SQ HS and adjust after tomorrow if AM fasting still trending upwards. * Post-prandial BSGs slightly above goal range. Will tighten CR. 03/23/20 * N/V has stopped and patient is eating well (30-46 g CHO/meal yesterday) * Insulin drip initiated was successfully transitioned off yesterday PM. Anticipate ability to resume prior regimen. * Previous admission reviewed - will resume similar regimen. Will attempt to get Lantus back to a once-daily qPM dosing by delaying dose today as long as BSG's tolerate and likely transition back to HS admin (similar to outpatient schedule) tomorrow 03/22/20 * Patient admitted with nausea/vomiting. PMHx significant for ESRD on dialysis, type 2 diabetes. Gl consulted and possible paracentesis. * Pharmacy consulted for glycemic management. Patient managed on basal/bolus insulin at home. Basal insulin had been held on admission due to nausea/vomiting. BSGs elevated this morning in 300s, likely due to lack of basal and increased PO intake. Per provider notes, N/V now resolved and patient tolerating solids * Patient known to glycemic service from other admissions. Plan to utilize similar parameters. Will given an extra 10 units of basal insulin this AM since BSGs elevated. Recheck after 2 hours of giving insulin this AM, trending up to 383 mg/dL - plan to start insulin gtt. Notified provider, plan for patient to be here for at least another day or two PLAN FOR INPATIENT GLYCEMIC CONTROL: * Basal insulin: no change * Lantus 20 units SQ HS * Bolus insulin: tighten CR * NovoLog per scale ACHS or Q6hrs while NPO * Goal Range: Low 110 mg/dL - High 140 mg/dL * Correction Factor: 25 mg/dL/unit * Nutritional / Prandial insulin per carb ratio of 1 unit per 8 grams CHO consumed PLAN FOR DISCHARGE: * A1c in range for age/comorbidities but patient also on HD which complicates interpretation * No change to outpatient regimen needed at this time
--- NOTE | 2020-03-24 11:39 | Hospitalist Progress Note ---
Date of Service March 24, 2020 Assessment & Plan (1) Diarrhea: Re-emerged overnight, possible related to acute gastroenteritis. Uncertain source. Doesn't appear to be infected. Per GI, use Colestipol and Bentyl for supportive care at this time. IVF ongoing. Replace lytes as needed. Zosyn stopped with no evidence of infected peritoneal fluid. Imodium PRN. (2) Cirrhosis: Cirrhosis seen on imaging with significant peritoneal ascites. Diagnostic paracentesis was performed on 03/21 with negative results for SBP. Zosyn was stopped on 03/22 and diarrhea resolved overnight. Follow up with GI as outpatient. Likely has thrombocytopenia and possibly some autoanticoagulation as a result of this disease process. She also reports increased bleeding during HD sessions over the past year. Will stop coumadin and have her follow-up with her car diologist to discuss this further. (3) UTI (urinary tract infection): UTI present and is improved after three days of Zosyn therapy to date. Mcdermott sensitive E coli present in urine culture. Abx stopped and doing well clinically. (4) Clostridioides difficile carrier: On contact precautions. Her toxin screen is negative so no treatment indicated at this time. Colestipol and PRN Bentyl given for diarrhea and discomfort per GI. Diarrhea resolved overnight. 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 Hyperglycemia resolved on insulin drip overnight and cont basal/bolus insulin for today. Appreciate glycemic pharmacist assistance with management. (6) Nausea & vomiting: began during HS session on Sat where she was sent home one hour early from her treatment. N/V restarted again the following morning and she presented to the ER and was admitted. This has since stopped and she is eating well (7) ESRD (end stage renal disease) on dialysis: Patient is On dialysis every Friday//Friday, cont management per Nephrology. Renally dose all new medications. (8) Volume overload: Some Lasix given this admission, however, she doesn't produce urine. Fluid management has been improved through HD. Currently lungs are clear and she is not short of breath or hypoxic. Appears resolved. (9) HTN (hypertension): Around goal-cont hydralazine, torsemide 20mg qAM, carvedilol 50mg BID per home regimen. (10) Vaginal bleeding: outpatient WHALE TRAINER exam recommended after peripheral discussion with WHALE TRAINER tong setter here. Patient is not sure if the vagina was the actual source of the spotting in her underwear that she saw yesterday (?UTI vs hemorrhoids vs v. This issue has resolved and is not urgent. Patient has a h/o partial hysterectomy in the past. (11) Supratherapeutic INR: vitamin K 2.5 mg given initially during admission due to hematochezia with elevated INR of 4.1. Coumadin stopped. (12) Afib: Known history of this. Coumadin [id number] with home Supervisor [employer]. Cont rate control efforts with coreg per home regimen and also amiodarone. (13) Thrombocytopenia: Appears chronic per record review. May be from undiagnosed cirrhosis. No clear active bleeding today. Would continue to hold coumadin for now. (14) Anemia in ESRD (end-stage renal disease): management per Nephro (15) DVT prophylaxis: Heparin for DVT prophy while off therapeutic coumadin. Full Code Dispo-to home when medically stable. Cheryl Ricketts DO [facility] Hospitalist Admission and Anticipated Discharge Date Admission Date: March 19, 2020 Subjective Pt states her night was terrible as she was up all night with lower abdominal pain and diarrhea that re-emerged. She is tolerating PO well and not vomiting. She said it started after a headache last night. She has been afebrile She denies any increase in abdominal size or distension but states she doesn't really know. Denies any changes in urination. Review of Systems Review of Systems: All systems reviewed & are unremarkable except as noted in Subjective Physical Exam Physical Exam: CONSTITUTIONAL: WNWD, vitals as above, generally ill-appearing and fatigued. EYES: normal conjunctivae, no scleral icterus ENT: external ear and nose normal, MMM, poor dentition RESPIRATORY: clear to auscultation bilaterally, no crackles, rales or wheezes, normal respiratory effort CARDIOVASCULAR: regular rate and rhythm, S1 and 2 heard without murmurs, gallops or rubs, no JVD, no peripheral edema GASTROINTESTINAL: normal bowel sounds, soft, lower abdominal pain bilaterally and protuberant abdomen. Non distended and no guarding. MUSCULOSKELETAL: moves all extremities with ease, head is normocephalic and atraumatic. She can move around the bed independently. SKIN: warm and dry, palpable graft in LUE NEUROLOGIC: No facial palsy, no dysarthria. CN 2-12 grossly intact, normal cognition, normal speech, no tremor PSYCHIATRIC: alert cooperative and oriented to person, place and time. Results & Data Results & Data ([facility]) Vital Signs (Past 12 Hours) Vital Signs Temp Pulse Pulse Resp BP Pulse Ox 03/24/20 06:38 155/74 H 03/24/20 06:35 36.5 C 56 L 18 144/74 H 96 03/24/20 05:44 36.3 C L 60 16 L 20 150/72 H 97 Laboratory Results Short CBC 03/24/20 Range/Units 07:08 WBC 4.16 L (4.8-10.8) K/uL Hgb 9.2 L (12.0-16.0) g/dL Hct 27.6 L (37-47) % Plt Count 55 L (130-400) K/uL BMP 03/24/20 07:08 Sodium 135 L Potassium 3.3 L Chloride 98 Carbon Dioxide 27 BUN 28 H Creatinine 4.54 H* D Glucose 133 H Calcium 8.8 Medications Administered Current Inpatient Medications Acetaminophen (Acetaminophen 325 Mg Tab) 650 mg PO Q4H PRN PRN Reason: Pain or Fever Stop: 04/18/20 16:18 Last Admin: 03/24/20 05:37 Dose: 650 mg Documented by: Albuterol (Albuterol Hfa 8 Gm Inhaler) 2 puffs INH Q4 PRN PRN Reason: Shortness Of Breath Or Wheezing Stop: 04/18/20 16:18 Amiodarone HCl (Amiodarone 200 Mg Tab) 200 mg PO QA DANY Stop: 04/19/20 08:59 Last Admin: 03/24/20 08:49 Dose: 200 mg Documented by: Atorvastatin Calcium (Atorvastatin 40 Mg Tab) 40 mg PO HS DANY Stop: 04/18/20 20:59 Last Admin: 03/23/20 20:59 Dose: 40 mg Documented by: Carvedilol (Carvedilol 25 Mg Tab) 50 mg PO BID DANY Stop: 04/18/20 20:59 Last Admin: 03/24/20 08:49 Dose: Not Given Documented by: Colestipol HCl (Colestipol Hcl 1 Gm Tab) 1 gm PO BID DANY Stop: 04/21/20 12:14 Last Admin: 03/24/20 08:48 Dose: 1 gm Documented by: Dextrose (Dextrose 50% 50 Ml Syringe) 25 - 50 ml IV UD PRN; Protocol PRN Reason: Hypoglycemia Protocol Stop: 04/18/20 16:18 Docusate Sodium (Docusate Sodium 100 Mg Cap) 100 mg PO QAM DANY Stop: 04/19/20 08:59 Last Admin: 03/24/20 08:49 Dose: Not Given Documented by: Fluticasone Propionate (Fluticasone Propionate Na Spr 16 Gm Btl) 2 sprays CANDY BID DANY Stop: 04/18/20 20:59 Last Admin: 03/24/20 08:51 Dose: 2 sprays Documented by: Glucagon (Glucagon For Inj 1 Mg Vial) 1 mg SQ UD PRN; Protocol PRN Reason: Hypoglycemia Protocol Stop: 04/18/20 16:18 Glucose (Glucose 10 Tabs/Tube) 4 - 8 tabs PO UD PRN; Protocol PRN Reason: Hypoglycemia Protocol Stop: 04/18/20 16:18 Glucose (Glucose 40% Gel 15 Gm Tube) 15 - 30 gm PO UD PRN; Protocol PRN Reason: Hypoglycemia Protocol Stop: 04/18/20 16:18 Hydralazine HCl (Hydralazine Tab 50 Mg Tab) 50 mg PO TID DANY Stop: 04/23/20 05:49 Last Admin: 03/24/20 06:38 Dose: 50 mg Documented by: Insulin Aspart (Insulin Aspart 100 Units/Ml 3 Ml Pen) 0 units SC ACHS DANY Stop: 04/21/20 20:59 Last Admin: 03/24/20 08:59 Dose: 8 units Documented by: Insulin Glargine (Insulin Glargine Solostar 100 Units/Ml 3 Ml Pen) 20 units SC QPM DANY; Protocol Stop: 04/22/20 16:29 Last Admin: 03/23/20 17:22 Dose: 20 units Documented by: Lactobacillus Acidophilus (Lactobacillus Acidophilus (Floranex) Tab) 4 tab PO QIDM DANY Stop: 04/20/20 20:59 Last Admin: 03/24/20 08:50 Dose: 4 tab Documented by: Lidocaine/Prilocaine (Lidocaine/Prilocaine 2.5% Ea Crm) 1 ea EXT UD PRN PRN Reason: BEFORE DIALYSIS Stop: 04/18/20 16:18 Loperamide HCl (Loperamide Hcl 2 Mg Cap) 2 mg PO UD PRN PRN Reason: Diarrhea Stop: 04/21/20 19:05 Last Admin: 03/24/20 11:42 Dose: 2 mg Documented by: Lorazepam (Lorazepam 0.5 Mg Tab) 0.5 mg PO TID PRN PRN Reason: Anxiety Stop: 04/18/20 16:18 Miscellaneous (Carbohydrates For Hypoglycemia ) 15 - 30 gm PO UD PRN PRN Reason: Hypoglycemia Protocol Stop: 04/18/20 16:18 Miscellaneous Information (Pharmacy Glycemic Mgmt Consult) 1 ea N/A UD PRN PRN Reason: Consult Stop: 04/21/20 07:58 Pantoprazole Sodium (Pantoprazole 40 Mg Tab) 40 mg PO QAM [facility] Stop: 04/23/20 05:44 Last Admin: 03/24/20 06:21 Dose: 40 mg Documented by: Polyethylene Glycol (Polyethylene (Miralax) 17 Gm Pack) 17 gm PO DAILY PRN PRN Reason: Constipation Stop: 04/18/20 16:18 Torsemide (Torsemide 20 Mg Tab) 20 mg PO QAM [facility] Stop: 04/19/20 11:44 Last Admin: 03/24/20 08:50 Dose: 20 mg Documented by: (1) Diabetes mellitus, type II Chronic kidney disease stage: on chronic dialysis Diabetes mellitus complication detail: with chronic kidney disease Diabetes mellitus complication status: with kidney complications Diabetes mellitus intermediate insulin use: unspecified intermediate insulin use status Qualified Code(s): E11.22 - 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 diabetic chronic kidney disease; N18.6 - End stage renal disease; Z99.2 - Dependence on renal dialysis (2) Nausea & vomiting Vomiting Intractability: intractable Vomiting type: unspecified Qualified Code(s): R11.2 - Nausea with vomiting, unspecified (3) HTN (hypertension) Hypertension type: unspecified Qualified Code(s): I10 - Essential (primary) hypertension
--- NOTE | 2020-03-24 14:00 | XRay Report ---
KUB HISTORY: Generalized abdominal pain. Diarrhea. COMPARISON: KUB 09/10/2019. FINDINGS: The bowel gas pattern is unremarkable. There are no dilated loops of small bowel to suggest an obstruction. No renal calculi. No ureteral calculi. No pneumoperitoneum or pneumatosis. [place] r wires are partially visualized. There is a left hip hemiarthroplasty noted. Degenerative changes wi thin the lumbar spine. A few calcifications in the deep pelvis remain stable and likely represent phl eboliths. IMPRESSION: No change compared to the prior study. No evidence for bowel obstruction. ACT 112: Negative or not required by law. Electronically signed by: Cristian Renteria M.D. 03/24/2020 1:59 PM
[2020-03-24] MEDS ORDERED: PROMETHAZINE HCL 25 MG TAB PO PRN (15:10)
[2020-03-24] MEDS ORDERED: ONDANSETRON INJ 2 MG/ML 2 ML VIAL IV PRN (15:10)
--- NOTE | 2020-03-24 22:03 | Discharge Summary ---
Date of Service March 24, 2020 Admission HPI Per Admitting Provider Patient is on dialysis every Friday//Friday. because patient had vomiting during last outpatient dialysis on Friday03/18/2020, the planned dialysis of 3 hours and 15 minutes was cut short by 1 hour as per patient there is some mild crackles on lung exam, but patient breathing comfortably on room air. Patient then reports 2 episodes of vomiting at home in AM of 03/19/2020 so she called for assistance to come to hospital for evaluation. Patient denies taking any home medications on 03/19/2020. Her blood pressure is high with systolic of 200 with blood pressure appearing to be exacerbated by the abdominal discomforts. CT abdomen exam in the ED does not appear to be able to identify a clear etiology for her abdomen discomforts and clinical exam not suggesting peritonitis "1. Heterogeneous appearance of the liver with questioned cirrhosis. Fluid overload manifested by trace pleural effusions, small pericardial effusion, diffuse body wall edema with moderate abdominopelvic ascites. 2. Peritoneal enhancement of the pelvis is also noted. Correlate clinically to exclude peritonitis. 3. No bowel obstruction. 4. Cholelithiasis. 5. Mild renal atrophy with bilateral cortical thinning." Her white counts are around 8,000 which while this is within the normal parameters the WBC levels are higher relative to labs from previous hospitalizations. Patient denies fevers at home and is afebrile. Follow the blood cultures. Patient reports that despite her status of a dialysis patient, she does make some urine. she denies dysuria but notes more frequent urinary incontinence recently. will check the urine analysis. will empirically start IV antibiotics as Zosyn until cultures return. Admission Exam Per Admitting Provider Constitutional: cooperative Eyes: PERRL, conjunctivae normal, anicteric sclerae EOM intact bilaterally ENMT: external ear and nose normal, oropharynx normal Neck: trachea midline, no thyromegaly normal visual inspection Respiratory: normal respiratory effort, lungs clear to auscultation Cardiovascular: Rate/Rhythm: + bradycardic Hypertension with systolic blood pressure around 200 Gastrointestinal (Abdomen): Inspection/Auscultation: abdomen normal to inspection Percussion/Palpation: abdomen soft patient reports tenderness of upper epigrastrum Neurologic: PERRL, EOMI, accommodation nl, no face palsy, no dysarthria moves all extremities Psychiatric: Orientation: alert and cooperative Principal Diagnosis nausea and vomiting diarrhea-? AGE UTI c-diff carrier ESRD on hemodialysis supratherapeutic INR vaginal spotting paroxysmal atrial fibrillation chronic thrombocytopenia Discharge Exam CONSTITUTIONAL: WNWD, vitals as above, generally ill-appearing and fatigued. EYES: normal conjunctivae, no scleral icterus ENT: external ear and nose normal, MMM, poor dentition RESPIRATORY: clear to auscultation bilaterally, no crackles, rales or wheezes, normal respiratory effort CARDIOVASCULAR: regular rate and rhythm, S1 and 2 heard without murmurs, gallops or rubs, no JVD, no peripheral edema GASTROINTESTINAL: normal bowel sounds, soft, lower abdominal pain bilaterally and protuberant abdomen with a positive fluid wave. Non distended and no guarding. MUSCULOSKELETAL: moves all extremities with ease, head is normocephalic and atraumatic. She can move around the bed independently. SKIN: warm and dry, palpable graft in LUE NEUROLOGIC: No facial palsy, no dysarthria. CN 2-12 grossly intact, normal cognition, normal speech, no tremor PSYCHIATRIC: alert cooperative and oriented to person, place and time. Discharge Data Allergies Allergy/AdvReac Type Severity Reaction Status Date / Time adhesive Allergy Unknown RXN TO Verified 03/19/20 10:54 ADHESIVE ON NITRO PATCH strawberry Allergy Unknown EDEMA OF Verified 03/19/20 10:54 FACE /LIPS /TONGUE DESIREE Inhibitors AdvReac Mild COUGH Verified 03/19/20 10:54 diphenhydramine AdvReac Mild VERY WEAK, Verified 03/19/20 10:54 CHF lisinopril AdvReac Mild COUGH Verified 03/19/20 10:54 nitroglycerin AdvReac Mild HEADACHE/NA Verified 03/19/20 10:54 USEA Sulfa (Sulfonamide AdvReac Mild "KNOCKS ME Verified 03/19/20 10:54 Antibiotics) OUT" amlodipine AdvReac Unknown RETAIN Verified 03/19/20 10:54 FLUID Consultations 03/19/20 14:01 ED Decision to Admit Stat 03/19/20 16:19 Consult Case Management - Discharge Planning Routine Consult Gastroenterology Routine 03/22/20 13:45 Consult Nephrology Routine Ordered Studies 03/19/20 11:17 CT abd pelvis IV con only Stat 03/20/20 12:34 US abdomen ltd ascites Routine 03/21/20 14:00 US paracentesis abd w/image Routine Hospital Course (1) Nausea & vomiting: (2) ESRD (end stage renal disease) on dialysis: (3) Diarrhea: (4) Cirrhosis: (5) UTI (urinary tract infection): (6) Clostridioides difficile carrier: (7) Diabetes mellitus, type II: (8) Volume overload: (9) HTN (hypertension): (10) Vaginal bleeding: (11) Supratherapeutic INR: (12) Afib: (13) Thrombocytopenia: (14) Anemia in ESRD (end-stage renal disease): Shortly after admission her nausea and vomiting improved with only nausea returning, controlled by antiemetics. The patient was admitted to the hospitalist service and placed on telemetry. GI was consulted and recommended Protonix 40 mg IV twice daily and antiemetics as needed. Blood and urine cultures were obtained and an E coli UTI was present. A diagnostic paracentesis was obtained to rule out SBP and empiric Zosyn was started per primary team. This was a diagnostic tap only with 110 cc of fluid obtained. Culture results were negative for peritoneal fluid, and no evidence of SBP was present. She was found to also be a C. difficile carrier with negative toxin screening but was placed on contact precautions for ongoing diarrhea. Stool studies were also negative and the diarrhea was from an uncertain source. Ultimately, this appeared to be some community-acquired infection. She was given colestipol and PRN Bentyl. Zosyn was stopped on 03/22 and her diarrhea resolved overnight. She did have some return of diarrhea the day before discharge but this resolved with 2 doses of Imodium and discomfort in her stomach resolved with 1 dose of Zofran. During her hospitalization she did have an episode of vaginal bleeding went 1 day and just a little spotting. The patient was unable to discern if this blood may be from urinary, rectal, or vaginal sources. She has had a history of a partial hysterectomy. I did discuss this peripherally with the on service accounting analyst who recommended she have a vaginal examination nonurgently as outpatient. This was discussed with the patient who verbalized understanding with intent to comply. No further bleeding was seen. When she was admitted she did have an episode of hematochezia with an elevated INR 4.1. She did receive vitamin K 2.5 initially during admission and her Coumadin was stopped. She has a known history of paroxysmal atrial fibrillation and is a dialysis patient who reports increased bleeding during her hemodialysis sessions over the past year. Her Coumadin was permanently discontinued this admission and should be reevaluated with her home event crew technician after discharge. Her Coreg and amiodarone was continued. Another concern contributing to the cessation of her blood thinner was her platelet level. She has been in the 40K to 50K range for approximately 1 to 2 years. With recent bleeding, recent hematochezia, again the Coumadin was stopped and a risk and benefit discussion should take place as outpatient post discharge. She did continue to receive inpatient dialysis while she was here and nephro was following her progress as a result. At time of discharge she was hemodynamically stable and afebrile and tolerating p.o. She was asymptomatic and mentating and ambulating at baseline and was stable for discharge. Close primary care follow-up was recommended. The patient already follows with [facility] gastroenterology for her liver disease and is recommended to have a follow-up after discharge. She is also overdue for colonoscopy and should consider an EUS/L be for work-up of liver disease which she had declined in the past. Consider gastric emptying study if persistent nausea and vomiting. Avoid alcohol and reduce Tylenol to less than 2 g daily if using. Total Time Total Time Spent Total Time Spent (In Minutes): 60 Total Time Includes: Examination of the Patient, Discharge Planning, Medication Reconciliation and Communication With Other Providers Discharge Plan Discharge Items Patient Disposition: Home - Self-Care Reason For Visit: VOMITING Discharge Diagnosis: nausea and vomiting diarrhea-? AGE UTI c-diff carrier ESRD on hemodialysis supratherapeutic INR vaginal spotting paroxysmal atrial fibrillation chronic thrombocytopenia Condition on Discharge: Good Activity: Resume your previous activity Non-emergency contact: Primary Care Provider and Management Information Systems Director Call non-emergency contact if: you have any medication questions, your symptoms worsen, your pain is not controlled, your pain is worsening, your pain is unusual for you, your pain is concerning for you and you have a fever Follow-up/Referrals: Zeynep Johnson MD [Primary Care Provider] - 03/30/20 12:00 pm (Date & Time 03/30/2020 12:00 PM Provider Kishan Cooper MD Department Internal Medicine [facility] ) Diet: Carb Consistent or DM2 Diet Texture: Easy to Chew Addtl Attending Provider Instructions: Please take all medications as instructed on discharge list below. Please follow-up with your primary care physician at the date and time above to ensure you are still doing well after hospital discharge. Please consider outpatient gynecology followup regarding the issue with vaginal spotting here in the hospital. Please follow-up with your event crew technician regarding stopping your coumadin and updating them on this. Please follow-up with [facility] Gastroenterology regarding further discussion around cirrhosis including workup and care/monitoring of this condition. If your diarrhea returns you may use OTC Imodium to help with this. It was a pleasure taking care of you! Please call if you have any questions or problems. You can reach a [facility] hospitalist on duty at [facility] 24 hours a day by calling [phone]. Take care of yourself. Cheryl Ricketts, [facility] Hospitalist Pending Studies at Discharge: No Stand-Alone Forms: My [facility] Medications and DC Order Prescriptions: New pantoprazole 40 mg Tablet,Delayed Release (Dr/Ec) 40 mg PO QAM Qty: 30 RF: 1 ondansetron HCl [Zofran] 4 mg tablet 4 mg PO Q8H PRN (Reason: nausea and vomiting) Qty: 20 RF: 0 Continued atorvastatin 40 mg tablet 40 mg PO HS RF: 0 carvedilol 25 mg tablet 50 mg PO BID RF: 0 torsemide 20 mg tablet 20 mg PO QAM RF: 0 amiodarone 200 mg tablet 200 mg PO QAM RF: 0 insulin aspart U-100 [Novolog Flexpen U-100 Insulin] 100 unit/mL (3 mL) Insulin Pen 0 unit SUBCUT UD RF: 0 Lantus Solostar U-100 Insulin 100 unit/mL (3 mL) insulin pen 16 units subcut PM RF: 0 hydralazine 50 mg tablet 50 mg PO TID RF: 0 lorazepam [Ativan] 0.5 mg tablet 0.5 mg PO TID PRN (Reason: Anxiety) RF: 0 polyethylene glycol 3350 [Miralax] 17 gram Powder In Packet 17 g PO DAILY PRN (Reason: Constipation) RF: 0 acetaminophen 500 mg Tablet 1,000 mg PO Q6H PRN (Reason: Pain) RF: 0 lidocaine-prilocaine 2.5-2.5 % Cream 1 applic topical UD RF: 0 omeprazole 20 mg capsule,delayed release(DR/EC) 40 mg PO QAM RF: 0 albuterol sulfate 90 mcg/actuation HFA aerosol inhaler 2 puff INHALATION Q4 PRN (Reason: Shortness Of Breath Or Wheezing) RF: 0 Culturelle 10 billion cell Capsule 1 cap PO TID RF: 0 fluticasone propionate [Flonase Allergy Relief] 50 mcg/actuation [place],Suspension 2 spray INTRANASAL BID RF: 0 docusate sodium 100 mg Tablet 100 mg PO QAM RF: 0 Discontinued warfarin 4 mg tablet 4 mg PO HS RF: 0 Discharge Orders: Discharge Order (Routine); Ordered 03/24/20 Ordered By: Cheryl Rodriges/Other Patient Handouts: Managing Type 2 Diabetes Admission Data Admit Date/Time: 03/19/20 14:53 Attending Provider: Cheryl Ricketts Admit Provider: Alex Calvo Primary Care Provider: Zeynep Johnson Other Providers: Alex Calvo ; Alli Grace ; Burak Zaragoza Other Interventions: Discharge Summary Assessment (RN) Last Done: 03/24/20 17:55
== END 2020-03-24 18:30 | disposition home health service (06) | DRG 291 ==
LOC: ED 09:40 → 2W 14:53 → SUATTDRO 14:53 → 2W 15:46

== ENCOUNTER 2020-05-14 03:54 | Inpatient (IN) ==
[2020-05-14] MEDS ORDERED: PANTOprazole 80 MG in DEXTROSE 5% 100 ML IV STA (04:06)
--- NOTE | 2020-05-14 04:09 | Emergency Department Note ---
Impression & Plan Acute GI bleeding, ESRD on dialysis, Thrombocytopenia ED Provider Note Name: ASHWIN OLSEN Age: 74 Sex: F Arrives Via: Ambulance Informant: Patient ED Provider: Jose Mccoy MD Chief Complaint: Rectal bleeding Impression: Acute GI Bleeding ESRD on dialysis Thrombocytopenia Medical Decision Makin yr old female on dialysis for ESRD who has chronic anemia and thrombocytopenia along with extensive PMH arrives for evaluation of rectal bleeding this evening. Bleeding has slowed from earlier though on exam still with dark bloody stool in rectum without evidence external hemorrhoidal bleeding. No abdominal distension nor TTP. She admits she has had some stomach issues previously and with increased bleeding at left arm dialysis fistula they had stopped her Coumadin last month (had been on 20 yrs for PE). She denies current shortness of breath, cough, fevers, nor covid symptoms. She has stable vitals. HgB stable at 10 for her. Labs consistent with her chronic renal failure. No indication emergent transfusion. Given IV Protonix for gastric protection. Hospitalist consulted for further management. Prior Medical Record and Triage/Nursing Notes reviewed by Me Additional history obtained from chart Differentials:Diverticulosis, AVM, coagulopathy, colitis, inflammatory bowel disease, malignancy, Irene-Thomson tear, esophagitis, peptic ulcer disease, variceal bleed, gastritis, epistaxis, fissure, hemorrhoids, as well as other pathologies. Vital Signs: reviewed and remarkable for no significant abnormalities Interventions: Protonix 80mg IV Labs:Reviewed and remarkable for thrombocytopenia, chronic renal failure, EKG:Per My Interpretation: Indication GI Bleed: AV Paced 73 bpm, qtc 594. No Ectopy. No Ischemia. Compared to EKG 03/19/20, no significant changes. Cardiac/Tele Monitoring: Cardiac Monitoring: An Order was placed for continuous cardiac monitoring. The monitor shows a rate of 60 with a paced rhythm. Consults:Dr Shaheen Pan Hospitalist Plan: Disposition:Hospitalization. Condition: Good Prescriptions:none PDMP: n/a History of Present Illness:74 yr old female arrives for evaluation of rectal bleeding. Patient notes she felt like she had to have a BM this morning. She notes some mild straining and had large BM. Looking at stool realized it was black and bloody. Over next hour had several episodes of bloody bowel movements. Notes since EMS arrived her bleeding has decreased. Admits fatigue but relates it to being on dialysis and it being late a night. Admits history anemia. States she was taken off Coumadin a few weeks ago while in the hospital but can't recall why it was stopped. She takes ASA 81mg daily as only blood thinner. She denies NSAID use. No cp, sob, fevers, chills, syncope, abdominal pain, nausea, vomiting, leg swelling, new bruising, nor other symptoms. Nothing seemed to make bleeding better nor worse. She has had no falls, trauma nor injuries. Denies history of rectal bleeding. Patient admits she has low platelets. ROS: See above HPI for pertinent positives & negatives. A total of 10 systems reviewed and were otherwise negative. Past Medical History:See Below Past Surgical History:See Below Family History:See Below Social History:See Below Home Medications:See Below Allergies:See Below Vitals:Blood Pressure: 168/91, Pulse 63, RR 16, T 36.8C, O2 99% on RA Physical Exam: GENERAL: Patient is chronically unwell appearing and in no acute distress. EYES: No scleral icterus, unremarkable pupils. Mild pale conjunctiva. ENT: Mucous membranes moist, no nasal congestion. NECK: No masses appreciated, nomeningismus, trachea is midline. RESPIRATORY: No dyspnea. Clear to auscultation and equal bilaterally. No wheeze, no rhonchi. CARDIOVASCULAR: Regular rate and rhythm.No murmurs, rubs, gallops appreciated. GASTROINTESTINAL: Abdomen soft, non-tender, no peritonitis.Bowel sounds positive.No masses appreciated. BACK: No midline tenderness, no CVA tenderness : small hemorrhoids nonbleeding. Bloody heme stool. EXTREMITIES: Fistula left upper arm normal. Normal motion all extremities, no cyanosis, no edema. NEUROLOGIC: Alert and oriented, no acute motor or sensory deficits, no focal weakness, cranial nerves grossly intact. SKIN: No rash, no jaundice, no diaphoresis. PSYCH: Appropriate GCS: 15 ED Course: Times/Reassessments: Stable, feeling well no further BM. Vitals normal and patient in no distress. Jose Mccoy MD Past Med/Surg History Medical History (Updated 05/14/20 @ 05:46 by Jose Mccoy MD) Anemia of renal disease Anxiety Biventricular ICD (implantable cardioverter-defibrillator) in place Degenerative cervical disc Depression Diabetes mellitus, type II Endocarditis Pacemaker wire vegetation ESRD (end stage renal disease) on dialysis GERD (gastroesophageal reflux disease) H/O TIA (transient ischemic attack) and stroke Hip fracture, left HTN (hypertension) Hx of supraventricular tachycardia Idiopathic cardiomyopathy Left bundle branch block (11/07/11) terminologist (current) use of 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 Paroxysmal atrial fibrillation Pericardial effusion Proteinuria PVD (peripheral vascular disease) Secondary hyperparathyroidism Slow transit constipation Streptococcus bovis infection Bacteremia with pacemaker lead vegetation Surgical History H/O dilation and curettage History of appendectomy History of cataract surgery History of hysterectomy History of left hip hemiarthroplasty S/P pericardial surgery Pericardial window for pericardial effusion Family History Brother Diabetes Mother Diabetes Coronary heart disease Sister Diabetes Social History Smoking Status: Never smoker Hx Alcohol Use: No Hx Substance Use: No Preferred Language: Bruneian Communication Ability: Effective Mathematics Instructor Required: No Beliefs That Will Affect Care: None marital status: / Current Living Situation: Family Current Living Situation Comment: cousin lives with patient Feels Safe at Home: Yes Assistive Devices: Walker Allergies Allergies Allergy/AdvReac Type Severity Reaction Status Date / Time adhesive Allergy Unknown RXN TO Verified 05/14/20 05:27 ADHESIVE ON NITRO PATCH strawberry Allergy Unknown EDEMA OF Verified 05/14/20 05:27 FACE /LIPS /TONGUE DESIREE Inhibitors AdvReac Mild COUGH Verified 05/14/20 05:27 diphenhydramine AdvReac Mild VERY WEAK, Verified 05/14/20 05:27 CHF lisinopril AdvReac Mild COUGH Verified 05/14/20 05:27 nitroglycerin AdvReac Mild HEADACHE/NA Verified 05/14/20 05:27 USEA Sulfa (Sulfonamide AdvReac Mild "KNOCKS ME Verified 05/14/20 05:27 Antibiotics) OUT" amlodipine AdvReac Unknown RETAIN Verified 05/14/20 05:27 FLUID Home Meds Home Medications Medication Instructions Recorded Confirmed Lantus Solostar U-100 Insulin 16 units SUBCUT PM 10/30/18 05/14/20 amiodarone 200 mg PO QAM 10/30/18 05/14/20 atorvastatin 40 mg PO HS 10/30/18 05/14/20 carvedilol 50 mg PO BID 10/30/18 05/14/20 torsemide 20 mg PO QAM 10/30/18 05/14/20 hydralazine 50 mg PO TID 04/27/19 05/14/20 lorazepam [Ativan] 0.5 - 1 mg PO DAILY PRN 04/27/19 05/14/20 acetaminophen 1,000 mg PO Q6H PRN 09/03/19 05/14/20 albuterol sulfate 2 puff INHALATION Q4 PRN 09/03/19 05/14/20 docusate sodium 100 mg PO QAM 09/03/19 05/14/20 lidocaine-prilocaine 1 applic TOPICAL UD 09/03/19 05/14/20 omeprazole 40 mg PO QAM 09/03/19 05/14/20 polyethylene glycol 3350 [Miralax] 17 g PO DAILY PRN 09/03/19 05/14/20 Bacillus coagulans [Probiotic (B. 0 cell PO DAILY 05/14/20 05/14/20 coagulans)] ascorbic acid (vitamin C) [Vitamin 500 mg PO DAILY 05/14/20 05/14/20 C] aspirin 81 mg PO DAILY 05/14/20 05/14/20 calcium acetate(phosphat bind) 667 mg PO TIDM 05/14/20 05/14/20 cholecalciferol (vitamin D3) 4,000 unit PO DAILY 05/14/20 05/14/20 [Vitamin D3] cyanocobalamin (vitamin B-12) 1,000 mcg PO DAILY 05/14/20 05/14/20 [Vitamin B-12] ferrous sulfate [iron] 325 mg PO DAILY 05/14/20 05/14/20 loratadine [Claritin] 10 mg PO Q OTHER DAY 05/14/20 05/14/20 pyridoxine (vitamin B6) [Vitamin 100 mg PO DAILY 05/14/20 05/14/20 B-6] Previous Rx's Medication Instructions Recorded ondansetron HCl [Zofran] 4 mg PO Q8H PRN #20 tab 03/24/20 pantoprazole 40 mg PO QAM #30 tab 03/24/20 Results & Data (ED) Vital Signs Vital Signs - 24 hr 05/14/20 04:08 05/14/20 04:40 Temperature 36.8 C Temperature Source Oral Pulse Rate 63 Pulse Rate [Right Finger] 60 Respiratory Rate 16 16 Respiratory Depth Normal Normal Blood Pressure 168/91 H Blood Pressure [Right Arm] 145/68 H Blood Pressure Mean 116 Blood Pressure Mean [Right Arm] 93 Blood Pressure Position Lying Blood Pressure Position [Right Arm] Lying Pulse Oximetry 99 100 Oxygen Delivery Method Room Air Room Air Sepsis Recent Fever Within 48 Hours No Sepsis New/Unexplained Change in Mental Status No Sepsis Action Taken by Nursing No Action Required Laboratory Data Result diagrams: 05/14/20 04:18 05/14/20 04:18 Lab Results 05/14/20 05/14/20 05/14/20 Range/Units 04:18 04:18 04:18 WBC 5.31 (4.8-10.8) K/uL RBC 3.23 L (4.2-5.4) M/uL Hgb 10.2 L (12.0-16.0) g/dL Hct 32.7 L (37-47) % MCV 101.2 H (80-100) fL MCH 31.6 (25-34) pg MCHC 31.2 L (32-36) g/dL RDW Std Deviation 56.0 H (36.4-46.3) fL RDW Coeff of Jacobo 15.2 H (11.5-14.5) % PT 12.7 H (9.0-12.0) Seconds INR 1.2 H (0.9-1.1) APTT 31.0 (21.0-31.0) Seconds PTT Ratio 1.1 Sodium 138 (136-145) mmol/L Potassium 4.3 (3.5-5.1) mmol/L Chloride 104 (98-107) mmol/L Carbon Dioxide 27 (21-32) mmol/L Anion Gap 7.0 (3-11) BUN 23 H (7-18) mg/dl Creatinine 3.57 H (0.6-1.2) mg/dl Est Cr Clr Drug Dosing 13.1 ml/min Est GFR ( Amer) 13.8 Est GFR (Non-Af Amer) 11.9 BUN/Creatinine Ratio 6.4 L (10-20) Glucose 103 H (70-99) mg/dl Calcium 8.5 (8.5-10.1) mg/dl Magnesium 2.2 (1.8-2.4) mg/dl Total Bilirubin 0.7 (0.2-1) mg/dl Direct Bilirubin 0.3 H (0-0.2) mg/dl AST 11 L (15-37) U/L ALT 11 L (12-78) U/L Alkaline Phosphatase 125 H (45-117) U/L Troponin I < 0.015 (0-0.045) ng/ml Total Protein 6.9 (6.4-8.2) gm/dl Albumin 3.2 L (3.4-5.0) gm/dl Administered Medications Discontinued Medications Pantoprazole Sodium 80 mg/ (Dextrose) 100 mls @ 400 mls/hr IV ONE STA Stop: 05/14/20 04:20 Last Admin: 05/14/20 04:46 Dose: 400 mls/hr Documented by: [id number] Discharge Plan Visit Data Chief Complaint: GI Bleed Stated Complaint: GI BLEED ED Provider: Jose Mccoy Discharge Problem: Acute GI bleeding, ESRD on dialysis, Thrombocytopenia Forms Stand Alone Forms: My [facility] [employer] 2000 Prescriptions Prescriptions: No Action atorvastatin 40 mg tablet 40 mg PO HS RF: 0 carvedilol 25 mg tablet 50 mg PO BID RF: 0 torsemide 20 mg tablet 20 mg PO QAM RF: 0 amiodarone 200 mg tablet 200 mg PO QAM RF: 0 Lantus Solostar U-100 Insulin 100 unit/mL (3 mL) insulin pen 16 units subcut PM RF: 0 hydralazine 50 mg tablet 50 mg PO TID RF: 0 lorazepam [Ativan] 0.5 mg tablet 0.5 - 1 mg PO DAILY PRN (Reason: Anxiety) RF: 0 polyethylene glycol 3350 [Miralax] 17 gram Powder In Packet 17 g PO DAILY PRN (Reason: Constipation) RF: 0 acetaminophen 500 mg Tablet 1,000 mg PO Q6H PRN (Reason: Pain) RF: 0 lidocaine-prilocaine 2.5-2.5 % Cream 1 applic topical UD RF: 0 omeprazole 20 mg capsule,delayed release(DR/EC) 40 mg PO QAM RF: 0 albuterol sulfate 90 mcg/actuation HFA aerosol inhaler 2 puff INHALATION Q4 PRN (Reason: Shortness Of Breath Or Wheezing) RF: 0 docusate sodium 100 mg Tablet 100 mg PO QAM RF: 0 pantoprazole 40 mg Tablet,Delayed Release (Dr/Ec) 40 mg PO QAM Qty: 30 RF: 1 ondansetron HCl [Zofran] 4 mg tablet 4 mg PO Q8H PRN (Reason: nausea and vomiting) Qty: 20 RF: 0 aspirin 81 mg tablet,delayed release (DR/EC) 81 mg PO DAILY RF: 0 Probiotic (B. coagulans) 10 billion cell capsule,delayed release(DR/EC) 0 cell PO DAILY RF: 0 loratadine [Claritin] 10 mg tablet 10 mg PO Q OTHER DAY RF: 0 calcium acetate(phosphat bind) 667 mg capsule 667 mg PO TIDM RF: 0 cholecalciferol (vitamin D3) [Vitamin D3] 50 mcg (2,000 unit) capsule 4,000 unit PO DAILY RF: 0 ascorbic acid (vitamin C) [Vitamin C] 500 mg tablet 500 mg PO DAILY RF: 0 cyanocobalamin (vitamin B-12) [Vitamin B-12] 1,000 mcg Tablet 1,000 mcg PO DAILY RF: 0 ferrous sulfate [iron] 325 mg (65 mg iron) Tablet 325 mg PO DAILY RF: 0 pyridoxine (vitamin B6) [Vitamin B-6] 100 mg Tablet 100 mg PO DAILY RF: 0
[2020-05-14 04:44] LABS: Hematocrit (blood only) 32.7 % (37-47); Hemoglobin 10.2 g/dL (12.0-16.0); Mean Corpuscular Hemoglobin 31.6 pg (25-34); Mean Corpuscular Hgb Conc 31.2 g/dL (32-36); Mean Corpuscular Volume 101.2 fL (80-100); RDW Coefficient of Variation 15.2 % (11.5-14.5); Red Blood Count 3.23 M/uL (4.2-5.4); White Blood Count 5.31 K/uL (4.8-10.8)
[2020-05-14 04:59] LABS: INR 1.2 (0.9-1.1); Partial Thromboplastin Ratio 1.1; Prothrombin Time 12.7 Seconds (9.0-12.0)
[2020-05-14 05:03] LABS: Alanine Aminotransferase 11 U/L (12-78); Albumin Level 3.2 gm/dl (3.4-5.0); Aspartate Aminotransferase 11 U/L (15-37); BUN Creatinine Ratio 6.4 (10-20); Bilirubin Direct 0.3 mg/dl (0-0.2); Blood Urea Nitrogen 23 mg/dl (7-18); Calcium 8.5 mg/dl (8.5-10.1); Carbon Dioxide 27 mmol/L (21-32); Chloride 104 mmol/L (98-107); Creatinine Clr Calc Pharmacy 13.1 ml/min; Est GFR (African American) 13.8; Est GFR (Non-African American) 11.9; Glucose 103 mg/dl (70-99); Magnesium 2.2 mg/dl (1.8-2.4); Potassium 4.3 mmol/L (3.5-5.1); Sodium 138 mmol/L (136-145)
[2020-05-14 05:08] LABS: Alkaline Phosphatase 125 U/L (45-117); Bilirubin,Total 0.7 mg/dl (0.2-1); Total Protein 6.9 gm/dl (6.4-8.2); Troponin I < 0.015 ng/ml (0-0.045)
[2020-05-14 05:54] LABS: Basophils # (auto) 0.01 K/uL (0-0.2); Basophils % (auto) 0.2 %; Eosinophils # (auto) 0.14 K/uL (0-0.5); Eosinophils % (auto) 2.6 %; Immature Granulocytes # (auto) 0.02 K/uL (0.00-0.02); Immature Granulocytes % (auto) 0.4 %; Lymphocytes # (auto) 0.69 K/uL (1.2-3.4); Mean Platelet Volume 11.2 fL (7.4-10.4); Monocytes # (auto) 0.53 K/uL (0.11-0.59); Neutrophils # (auto) 3.92 K/uL (1.4-6.5); Neutrophils % (auto) 73.8 %; Platelet Count 69 K/uL (130-400); Platelet Estimate Decreased (Normal)
--- NOTE | 2020-05-14 07:13 | History and Physical Report ---
DATE OF ADMISSION: 05/14/2020 CHIEF COMPLAINT: GI bleed. HISTORY OF PRESENT ILLNESS: This is a 74-year-old female with past medical history significant for end-stage renal disease on hemodialysis, type 2 diabetes, secondary hypothyroidism, paroxysmal atrial fibrillation, history of chronic systolic heart failure, left bundle branch block, cardiomegaly, history of CVA, hypertension, GERD, osteoporosis, anemia of chronic kidney disease, thrombocytopenia, depression, biventricular implantable cardioverter defibrillator, history of anxiety, who lives with her cousin, comes because of GI bleed. The patient says he woke up around 2:00 in the morning and had a bowel movement the stool was black in color, had few more episodes and when she wiped, it was somewhat bloody. It happened for 2-3 episodes which worried her and came to the ER. Her hemoglobin is stable at 10.2. By the time she was coming here, the episodes had stopped. Currently resting comfortable and hemodynamically stable. She has some abdominal discomfort. Denies any nausea or vomiting. No headache, no blurred visions. Hard of hearing. Has postnasal drip and cough from it, cough is improved currently. No difficulty swallowing. Appetite is okay. No chest pain, no shortness of breath. No rash. Ambulates with the help of walker at home. ALLERGIES: ADHESIVE, STRAWBERRY, DESIREE INHIBITORS, DIPHENHYDRAMINE, LISINOPRIL, NITROGLYCERIN, SULFA ANTIBIOTICS, AND AMLODIPINE. PAST MEDICAL HISTORY: As mentioned above. PAST SURGICAL HISTORY: AV shunt placement, biopsy of the breast, breast lesion excision, colonoscopy, cystoscopy, EGDs, cataract surgery, left hip hemiarthroplasty, total abdominal hysterectomy with removal of tubes, angioplasty. MEDICATIONS: The patient is on Tylenol 1000 mg p.o. q. 6 hours p.r.n., albuterol 2 puffs inhalation q. 4 hours p.r.n., amiodarone 200 mg p.o. a.m., ascorbic acid 500 mg p.o. daily, aspirin 81 mg p.o. daily, atorvastatin 40 mg at bedtime, probiotic 1 capsule daily, calcium acetate 667 mg p.o. t.i.d. with meals, Coreg 50 mg p.o. b.i.d., vitamin D 4000 units p.o. daily, vitamin B12 1000 mcg p.o. daily, Colace 100 mg p.o. a.m., ferrous sulfate 325 mg p.o. daily, hydralazine 50 mg p.o. t.i.d., Lantus 16 units subcutaneous p.m., Claritin 10 mg p.o. every other day, Ativan 0.5 mg p.o. daily p.r.n., Protonix 40 mg p.o. daily, Zofran 4 mg p.o. q. 8 hours p.r.n., MiraLax 17 grams p.o. daily p.r.n., vitamin B6 100 mg p.o. daily, furosemide 20 mg p.o. a.m. FAMILY HISTORY: Significant for mother has diabetes and heart disorder, father has heart disorder, sister has chronic kidney disease, brother has diabetes. SOCIAL HISTORY: , lives with cousin. No smoking, no alcohol, no drug use. REVIEW OF SYSTEMS: As per HPI. Rest of review of systems negative. PHYSICAL EXAMINATION: GENERAL: The patient is of moderate build, not in acute distress. VITAL SIGNS: Temperature 36.8, pulse 60, respiratory rate 16, blood pressure 145/68, oxygen 100% on room air. HEENT: Pupils equal, round, and reactive to light. Oral mucosa moist. NECK: No JVD, no neck masses. CARDIOVASCULAR: S1, S2 heard. Regular rate and rhythm. No murmur, no gallop. RESPIRATORY SYSTEM: Normal AP diameter. No accessory muscle use. No wheezing, no crackles. ABDOMEN: Soft, bowel sounds present. Nontender. No distention. CENTRAL NERVOUS SYSTEM: Cranial nerves II-XII grossly intact. Nonfocal. EXTREMITIES: No edema, no erythema. LABORATORY DATA: WBC 5.3, hemoglobin 10.2, hematocrit 32.7, platelets 69. PT 12.7, INR 1.2, APTT 31. Sodium 138, potassium 4.3, chloride 104, bicarbonate 27, BUN 23, creatinine 3.5, serum glucose 103, calcium 8.5, magnesium 2.2, total bilirubin 0.7, direct bilirubin 0.3, AST 11, ALT 11, alkaline phosphatase 125. Troponin I less than 0.015. EKG: AV dual paced rhythm at the rate of 73. ASSESSMENT AND PLAN: This is a 74-year-old female who presents with gastrointestinal bleed. 1. Gastrointestinal bleed. The patient had a few episodes of black stools and also some blood per rectum. Hemoglobin is stable at 10.2. We will hold the aspirin. The patient's s her Coumadin was stopped last admission because of low platelets and also hematochezia. Hemodynamically stable. Started on Protonix drip. We will keep her n.p.o. We will follow H and H q. 6 hours. Blood consent obtained and consult GI for further recommendations. 2. End-stage renal disease, on hemodialysis. Will consult nephrology. 3. History of atrial fibrillation, left bundle branch block status post biventricular pacemaker, on Coreg, rate is under control, and amiodarone. No longer on Coumadin. Holding aspirin. 4. Hyperlipidemia, on statin. 5. End-stage renal disease, on hemodialysis. 6. Hypertension. On hydralazine, Coreg. Will monitor the blood pressure. 7. Gastroesophageal reflux disease. Continue Protonix. 8. Chronic systolic congestive heart failure. Last EF is normal. Will continue torsemide for now. 9. Diabetes, currently n.p.o. Will cut back on the Lantus to 8 units at bedtime and insulin sliding scale. Follow the blood sugars. 10. History of hyperlipidemia, on statin. 11. Gastroesophageal reflux disease, on PPI, currently on Protonix drip. 12. Deep venous thrombosis prophylaxis, sequential compression devices. DISPOSITION: Closely monitor in tele floor. Level 1 full code. Social service to help with discharge planning. [facility]
[2020-05-14] MEDS ORDERED: ACETAMINOPHEN 325 MG TAB PO PRN (07:52)
[2020-05-14] MEDS ORDERED: LORazepam 0.5 MG TAB PO PRN (07:52)
[2020-05-14] MEDS ORDERED: NITROGLYCERIN SL 0.4 MG/TAB TAB SL PRN (07:52)
[2020-05-14] MEDS ORDERED: POLYETHYLENE (MIRALAX) 17 GM PACK PO PRN (07:52)
[2020-05-14] MEDS ORDERED: ONDANSETRON INJ 2 MG/ML 2 ML VIAL IV PRN (07:52)
[2020-05-14] MEDS ORDERED: ALBUTEROL HFA 8 GM INHALER INH PRN (07:52)
--- NOTE | 2020-05-14 08:02 | Electrocardiogram Report ---
Test Reason : Blood Pressure : / mmHG Vent. Rate : 073 BPM Atrial Rate : 073 BPM P-R Int : 168 ms QRS Dur : 176 ms QT Int : 540 ms P-R-T Axes : 000 -85 104 degrees QTc Int : 594 ms AV dual-paced rhythm Biventricular pacemaker detected Abnormal ECG When compared with ECG of 19-MAR-2020 14:16, Vent. rate has increased BY 12 BPM Confirmed by Tristan Carr ([id number]) on 05/14/2020 8:02:21 AM Referred By: REFERRED SELF Confirmed By:Tristan Carr
[2020-05-14] MEDS: CALCIUM ACETATE 667 MG CAP/TAB PO SCH ×3 (08:10→16:54)
[2020-05-14] MEDS: INSULIN ASPART 100 UNITS/ML 3 ML PEN SC SCH ×4 (08:10→21:06)
[2020-05-14] MEDS: PANTOprazole 40 MG in DEXTROSE 5% 100 ML IV SCH ×4 (08:33→22:35)
[2020-05-14] MEDS: LORATADINE 10 MG TAB PO SCH (08:45)
[2020-05-14] MEDS: CYANOCOBALAMIN 500 MCG TABLET (VITAMIN B-12) PO SCH (08:45)
[2020-05-14] MEDS: AMIODARONE 200 MG TAB PO SCH (08:45)
[2020-05-14] MEDS: carvediloL 25 MG TAB PO SCH ×2 (08:46→20:47)
[2020-05-14] MEDS: hydrALAZINE TAB 50 MG TAB PO SCH ×3 (08:46→20:47)
[2020-05-14] MEDS: PYRIDOXINE HCL 50 MG TAB PO SCH (08:46)
[2020-05-14] MEDS: ADVANCED PROBIOTIC 1250 MG CAPSULE PO SCH (08:47)
[2020-05-14] MEDS: CHOLECALCIFEROL 1,000 UNITS 25 MCG TAB PO SCH (08:47)
--- NOTE | 2020-05-14 09:02 | Hospitalist Progress Note ---
Date of Service May 14, 2020 Assessment & Plan (1) Acute GI bleeding: -As per ED notes on 05/14/2020 "74 yr old female arrives for evaluation of rectal bleeding. Patient notes she felt like she had to have a BM this morning. She notes some mild straining and had large BM. Looking at stool realized it was black and bloody. Over next hour had several episodes of bloody bowel movements. Notes since EMS arrived her bleeding has decreased" -The presentation hemoglobin of 10.2 is not different from patient's baseline -admitted hospitalist notes that patient's s her Coumadin was stopped last admission because of low platelets and also hematochezia. -Started on Protonix drip, can continue -patient current NPO and awaiting gastroenterology consult (2) Biventricular ICD (implantable cardioverter-defibrillator) in place: -History of atrial fibrillation, History of left bundle branch block status post biventricular pacemaker placed in the past -no longer on coumadin as per admission notes -INR is normal on ED presentation -home dose aspirin is held for now -continue home dose carvedilol and amiodarone Hypertension Hyperlipidemia Chronic congestive heart failure. -On carvedilol, hydralazine -on statin -continue home dose torsemide for now Diabetes Mellitus Type 2 with Longer Term Current use of Insulin -the home dose insulin is tentatively reduced to be Lantus 8 units at bedtime and insulin sliding scale while assessing dietary status -Follow the blood sugars. Gastroesophageal reflux disease. Continue Protonix (3) ESRD on dialysis: -nephrology consult following th patient, next scheduled dialysis will be Friday05/16/2020 -continue renal vitamin supplements and phosphorous binders PT/OT, case management consult Deep venous thrombosis prophylaxis: sequential compression devices Admission and Anticipated Discharge Date Admission Date: May 14, 2020 Subjective Patient seen and examined with IV pantoprazole running. No acute distress. No abdomen pain.breathing on room air. no respiratory distress. no vomiting. currently there is no bloody defecation in the hospital so far. patient denies other symptoms at this time and reported the GI bleed history which happened at home prior to ED presnetation Review of Systems Review of Systems: All systems reviewed & are unremarkable except as noted in Subjective Physical Exam Constitutional: cooperative and comfortable Eyes: PERRL, conjunctivae normal, anicteric sclerae EOM intact bilaterally ENMT: external ear and nose normal, oropharynx normal Neck: normal visual inspection Respiratory: normal respiratory effort, lungs clear to auscultation Cardiovascular: Rate/Rhythm: + bradycardic (paced) Chest (Breasts): Chest: + pacemaker Gastrointestinal (Abdomen): normal bowel sounds, soft, nontender, no hepatosplenomegaly Musculoskeletal: Head/Neck/Chest: normocephalic and head atraumatic Neurologic: PERRL, EOMI, accommodation nl, no face palsy, no dysarthria Psychiatric: A+Ox3, euthymic affect Results & Data Results & Data ([facility]) Vital Signs (Past 12 Hours) Vital Signs Temp Pulse Pulse Resp BP BP Pulse Ox 05/14/20 07:42 36.4 C L 73 62 18 160/66 H 97 05/14/20 07:30 66 20 175/65 H 95 05/14/20 06:00 60 18 141/82 H 98 05/14/20 04:40 60 16 145/68 H 100 05/14/20 04:08 36.8 C 63 16 168/91 H 99
[2020-05-14 09:57] LABS: Hematocrit (blood only) 33.8 % (37-47); Hemoglobin 10.8 g/dL (12.0-16.0)
--- NOTE | 2020-05-14 10:34 | Nephrology Consultation ---
Date of Consultation May 14, 2020 Assessment & Plan (1) ESRD on dialysis: Patient with ESRD on dialysis Friday using left forearm AV fistula. She had outpatient dialysis yesterday. Electrolytes are stable and no signs of volume overload. No indication for dialysis today. Next dialysis will be on Friday unless clinical status changes (2) Acute GI bleeding: Patient with GI bleed. Hemoglobin remained stable. Continue monitoring hemoglobin and bowel movements. She avoids GI evaluation. Avoid IV fluids unless hypotensive (3) Anemia in ESRD (end-stage renal disease): Hemoglobin of 10.2 today. We will continue Epogen with dialysis History of Present Illness Reason for Consultation: ESRD complicated by GI bleed Requesting Physician: Alex Calvo MD Attending Physician: Alex Calvo MD History of Present Illness This is a 24-year-old female with history of type 2 diabetes, hypertension, CHF, paroxysmal A. fib, status post implantable cardioverter defibrillator and ESRD on dialysis Friday who was admitted on 05/13/2020 with GI bleed. Patient is dialyzed through an AV fistula on the left forearm. She had outpatient dialysis yesterday. She had to bloody bowel movements at home. She denied any dizziness or shortness of breath. Her hemoglobin is remained stable since admission and 10.2 today. He has not had further episodes of bleeding here. Patient was previously on Coumadin but this was stopped a few weeks ago. She feels better this morning denies any shortness of breath or pain. She is asking for food but was told not to eat and to she is evaluated by GI. Allergies Allergy/AdvReac Type Severity Reaction Status Date / Time adhesive Allergy Unknown RXN TO Verified 05/14/20 05:27 ADHESIVE ON NITRO PATCH strawberry Allergy Unknown EDEMA OF Verified 05/14/20 05:27 FACE /LIPS /TONGUE DESIREE Inhibitors AdvReac Mild COUGH Verified 05/14/20 05:27 diphenhydramine AdvReac Mild VERY WEAK, Verified 05/14/20 05:27 CHF lisinopril AdvReac Mild COUGH Verified 05/14/20 05:27 nitroglycerin AdvReac Mild HEADACHE/NA Verified 05/14/20 05:27 USEA Sulfa (Sulfonamide AdvReac Mild "KNOCKS ME Verified 05/14/20 05:27 Antibiotics) OUT" amlodipine AdvReac Unknown RETAIN Verified 05/14/20 05:27 FLUID Home Medications Home Medications Medication Instructions Recorded Confirmed Type Marly Gan U-100 Insulin 16 units SUBCUT PM 10/30/18 05/14/20 History amiodarone 200 mg PO QAM 10/30/18 05/14/20 History atorvastatin 40 mg PO HS 10/30/18 05/14/20 History carvedilol 50 mg PO BID 10/30/18 05/14/20 History torsemide 20 mg PO QAM 10/30/18 05/14/20 History hydralazine 50 mg PO TID 04/27/19 05/14/20 History lorazepam [Ativan] 0.5 - 1 mg PO DAILY PRN 04/27/19 05/14/20 History acetaminophen 1,000 mg PO Q6H PRN 09/03/19 05/14/20 History albuterol sulfate 2 puff INHALATION Q4 PRN 09/03/19 05/14/20 History docusate sodium 100 mg PO QAM 09/03/19 05/14/20 History lidocaine-prilocaine 1 applic TOPICAL UD 09/03/19 05/14/20 History omeprazole 40 mg PO QAM 09/03/19 05/14/20 History polyethylene glycol 3350 [Miralax] 17 g PO DAILY PRN 09/03/19 05/14/20 History ondansetron HCl [Zofran] 4 mg PO Q8H PRN #20 tab 03/24/20 05/14/20 Rx pantoprazole 40 mg PO QAM #30 tab 03/24/20 05/14/20 Rx Bacillus coagulans [Probiotic (B. 0 cell PO DAILY 05/14/20 05/14/20 History coagulans)] ascorbic acid (vitamin C) [Vitamin 500 mg PO DAILY 05/14/20 05/14/20 History C] aspirin 81 mg PO DAILY 05/14/20 05/14/20 History calcium acetate(phosphat bind) 667 mg PO TIDM 05/14/20 05/14/20 History cholecalciferol (vitamin D3) 4,000 unit PO DAILY 05/14/20 05/14/20 History [Vitamin D3] cyanocobalamin (vitamin B-12) 1,000 mcg PO DAILY 05/14/20 05/14/20 History [Vitamin B-12] ferrous sulfate [iron] 325 mg PO DAILY 05/14/20 05/14/20 History loratadine [Claritin] 10 mg PO Q OTHER DAY 05/14/20 05/14/20 History pyridoxine (vitamin B6) [Vitamin 100 mg PO DAILY 05/14/20 05/14/20 History B-6] Patient History Medical History (Updated 05/14/20 @ 05:46 by Jose Mccoy MD) Anemia of renal disease Anxiety Biventricular ICD (implantable cardioverter-defibrillator) in place Degenerative cervical disc Depression Diabetes mellitus, type II Endocarditis Pacemaker wire vegetation ESRD (end stage renal disease) on dialysis GERD (gastroesophageal reflux disease) H/O TIA (transient ischemic attack) and stroke Hip fracture, left HTN (hypertension) Hx of supraventricular tachycardia Idiopathic cardiomyopathy Left bundle branch block (11/07/11) half-way (current) use of 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 Paroxysmal atrial fibrillation Pericardial effusion Proteinuria PVD (peripheral vascular disease) Secondary hyperparathyroidism Slow transit constipation Streptococcus bovis infection Bacteremia with pacemaker lead vegetation Surgical History H/O dilation and curettage History of appendectomy History of cataract surgery History of hysterectomy History of left hip hemiarthroplasty S/P pericardial surgery Pericardial window for pericardial effusion Family History Brother Diabetes Mother Diabetes Coronary heart disease Sister Diabetes Social History Smoking Status: Never smoker Hx Alcohol Use: No Hx Substance Use: No Preferred Language: Wolof Communication Ability: Effective Manager Technical Sales Required: No Beliefs That Will Affect Care: None marital status: / Current Living Situation: Family Current Living Situation Comment: cousin lives with patient Other Information That Helps Us Care for You: No Feels Safe at Home: Yes Assistive Devices: Denture - Upper, Glasses, Hearing Aid - Bilateral and Walker Review of Systems Review of Systems: All systems reviewed & are unremarkable except as noted in HPI & below Physical Exam Physical Exam: General exam: Appears comfortable, no acute distress HEENT: Pupils are equal and reactive to light Neck: No JVD, neck is supple trachea is midline Respiratory system: Clear breath sounds bilaterally. Gastrointestinal: Abdomen is soft, non distended, non tender, bowel sounds are present CVS: Regular rate and rhythm. No murmurs, rubs or gallops Musculoskeletal: No joint or muscle tenderness Extremities: Non tender, no edema, peripheral pulses are present Neuro: Oriented, no tremors, no focal neurological deficits Skin: No rashes Access: Left forearm AV fistula with good bruit Results & Data ([facility]) Vital Signs (Past 12 Hours) Vital Signs Temp Pulse Pulse Resp BP BP Pulse Ox 05/14/20 07:42 36.4 C L 73 62 18 160/66 H 97 05/14/20 07:30 66 20 175/65 H 95 05/14/20 06:00 60 18 141/82 H 98 05/14/20 04:40 60 16 145/68 H 100 05/14/20 04:08 36.8 C 63 16 168/91 H 99 Laboratory Results 05/14/20 04:18 05/14/20 05/14/20 04:18 04:18 WBC 5.31 RBC 3.23 L MCV 101.2 H MCH 31.6 MCHC 31.2 L RDW Std Deviation 56.0 H RDW Coeff of Jacobo 15.2 H Plt Count 69 L MPV 11.2 H Albumin 3.2 L
--- NOTE | 2020-05-14 10:46 | Gastrointestinal Consultation ---
Date of Consultation May 14, 2020 Assessment & Plan (1) Acute GI bleeding: (2) ESRD on dialysis: GIB likely from hemorrhoids, hgb is at baseline, HD stable. No previous pathology on last EGD, had polyps on last colonoscopy and is due for a repeat in June 2020. Recs: --start anusol cream BID per rectum for hemorrhoids --trend H/H daily --diet as tolerated, supportive care --will need outpatient colonoscopy as scheduled already in june for surveillance rest as per primary team Thank you for allowing me to participate in the care of this patient History of Present Illness Attending Physician: MD Alex Rios MD 74 yo female with hx newly diagnosed cirrhosis with ascites here with rectal bleeding. She notes being constipated and straining to have a bowel movement, shortly thereafter she started to have blood per rectum and dark stool. hgb is currently at her baseline from the past year. VSS. Otherwise no dyspnea, weakness, abdominal pains, she does note pains in her anus. labs reviewed. Allergies Allergy/AdvReac Type Severity Reaction Status Date / Time adhesive Allergy Unknown RXN TO Verified 05/14/20 05:27 ADHESIVE ON NITRO PATCH strawberry Allergy Unknown EDEMA OF Verified 05/14/20 05:27 FACE /LIPS /TONGUE DESIREE Inhibitors AdvReac Mild COUGH Verified 05/14/20 05:27 diphenhydramine AdvReac Mild VERY WEAK, Verified 05/14/20 05:27 CHF lisinopril AdvReac Mild COUGH Verified 05/14/20 05:27 nitroglycerin AdvReac Mild HEADACHE/NA Verified 05/14/20 05:27 USEA Sulfa (Sulfonamide AdvReac Mild "KNOCKS ME Verified 05/14/20 05:27 Antibiotics) OUT" amlodipine AdvReac Unknown RETAIN Verified 05/14/20 05:27 FLUID Home Medications Home Medications Medication Instructions Recorded Confirmed Type Lantus Solostar U-100 Insulin 16 units SUBCUT PM 10/30/18 05/14/20 History amiodarone 200 mg PO QAM 10/30/18 05/14/20 History atorvastatin 40 mg PO HS 10/30/18 05/14/20 History carvedilol 50 mg PO BID 10/30/18 05/14/20 History torsemide 20 mg PO QAM 10/30/18 05/14/20 History hydralazine 50 mg PO TID 04/27/19 05/14/20 History lorazepam [Ativan] 0.5 - 1 mg PO DAILY PRN 04/27/19 05/14/20 History acetaminophen 1,000 mg PO Q6H PRN 09/03/19 05/14/20 History albuterol sulfate 2 puff INHALATION Q4 PRN 09/03/19 05/14/20 History docusate sodium 100 mg PO QAM 09/03/19 05/14/20 History lidocaine-prilocaine 1 applic TOPICAL UD 09/03/19 05/14/20 History omeprazole 40 mg PO QAM 09/03/19 05/14/20 History polyethylene glycol 3350 [Miralax] 17 g PO DAILY PRN 09/03/19 05/14/20 History ondansetron HCl [Zofran] 4 mg PO Q8H PRN #20 tab 03/24/20 05/14/20 Rx pantoprazole 40 mg PO QAM #30 tab 03/24/20 05/14/20 Rx Bacillus coagulans [Probiotic (B. 0 cell PO DAILY 05/14/20 05/14/20 History coagulans)] ascorbic acid (vitamin C) [Vitamin 500 mg PO DAILY 05/14/20 05/14/20 History C] aspirin 81 mg PO DAILY 05/14/20 05/14/20 History calcium acetate(phosphat bind) 667 mg PO TIDM 05/14/20 05/14/20 History cholecalciferol (vitamin D3) 4,000 unit PO DAILY 05/14/20 05/14/20 History [Vitamin D3] cyanocobalamin (vitamin B-12) 1,000 mcg PO DAILY 05/14/20 05/14/20 History [Vitamin B-12] ferrous sulfate [iron] 325 mg PO DAILY 05/14/20 05/14/20 History loratadine [Claritin] 10 mg PO Q OTHER DAY 05/14/20 05/14/20 History pyridoxine (vitamin B6) [Vitamin 100 mg PO DAILY 05/14/20 05/14/20 History B-6] Patient History Medical History (Updated 05/14/20 @ 05:46 by Jose Mccoy MD) Anemia of renal disease Anxiety Biventricular ICD (implantable cardioverter-defibrillator) in place Degenerative cervical disc Depression Diabetes mellitus, type II Endocarditis Pacemaker wire vegetation ESRD (end stage renal disease) on dialysis GERD (gastroesophageal reflux disease) H/O TIA (transient ischemic attack) and stroke Hip fracture, left HTN (hypertension) Hx of supraventricular tachycardia Idiopathic cardiomyopathy Left bundle branch block (11/07/11) USP (current) use of 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 Paroxysmal atrial fibrillation Pericardial effusion Proteinuria PVD (peripheral vascular disease) Secondary hyperparathyroidism Slow transit constipation Streptococcus bovis infection Bacteremia with pacemaker lead vegetation Surgical History H/O dilation and curettage History of appendectomy History of cataract surgery History of hysterectomy History of left hip hemiarthroplasty S/P pericardial surgery Pericardial window for pericardial effusion Family History Brother Diabetes Mother Diabetes Coronary heart disease Sister Diabetes Social History Smoking Status: Never smoker Hx Alcohol Use: No Hx Substance Use: No Preferred Language: Pashto Communication Ability: Effective Host Coordinator Required: No Beliefs That Will Affect Care: None marital status: / Current Living Situation: Family Current Living Situation Comment: cousin lives with patient Other Information That Helps Us Care for You: No Feels Safe at Home: Yes Assistive Devices: Denture - Upper, Glasses, Hearing Aid - Bilateral and Walker Review of Systems Constitutional: no fever, no chills and no weight loss Eyes: as per Subjective / HPI Ear, Nose, Mouth, Throat: as per Subjective / HPI Respiratory: no dyspnea and no dyspnea on exertion Cardiovascular: no chest pain and no palpitations Gastrointestinal: as per Subjective / HPI Musculoskeletal: no joint pain and no swelling Integumentary: no rash and no lesions Neurologic: no numbness and no paresthesia Psychiatric: no depression and no anxiety Endocrine: no fatigue Hematologic / Lymphatic: no easy bleeding and no easy bruising Physical Exam Constitutional: WD/WN, vitals as above Eyes: EOM intact bilaterally Neck: normal visual inspection Respiratory: normal respiratory effort, lungs clear to auscultation Cardiovascular: RRR, no murmur, no edema Gastrointestinal (Abdomen): Inspection/Auscultation: abdomen normal to inspection; abdomen not distended Percussion/Palpation: abdomen soft; abdomen nontender and no hepatosplenomegaly Musculoskeletal: Extremities: no cyanosis Gait: normal gait Skin: no rashes, warm and dry Neurologic: moves all extremities Psychiatric: A+Ox3, euthymic affect Results & Data ([facility]) Vital Signs (Past 12 Hours) Vital Signs Temp Pulse Pulse Resp BP BP Pulse Ox 05/14/20 07:42 36.4 C L 73 62 18 160/66 H 97 05/14/20 07:30 66 20 175/65 H 95 05/14/20 06:00 60 18 141/82 H 98 05/14/20 04:40 60 16 145/68 H 100 05/14/20 04:08 36.8 C 63 16 168/91 H 99 PG Care Time/CCT Total # of Minutes Spent Total Time Spent with Patient: Total time spent is greater than 50% in coordination of care (as documented) at patient's floor/unit and/or counseling patient: Coding Level of Care Code 32894 Initial Inpt Care Lvl 3 Diagnoses Acute GI bleeding K92.2 ESRD on dialysis N18.6; Z99.2
[2020-05-14 12:48] LABS: Appearance Urine Clear (Clear); Bacteria Urine Automated Negative (Negative); Blood Urine Negative (Negative); Color Urine Dark Yellow; Epithelial Cell Urine Auto >30 /lpf (0-5); Glucose Urine UA Negative (Negative); Ketones Urine Trace (Negative); Leukocyte Esterase Urine 1+ (Negative); Nitrite Urine Negative (Negative); Protein Urine 2+ (Negative); Urobilinogen Urine Negative (Negative)
[2020-05-14 13:08] LABS: Bilirubin Urine Negative (Negative); Ictotest Urine Negative (Negative)
--- NOTE | 2020-05-14 16:23 | Communication Note ---
Date of Service: May 14, 2020 Around 4 PM, patient had blood per rectum which was witnessed by nursing as patient could not get to bathroom fast enough. Patient not in distress. ivana emelia to be on IV pantoprazole drip. Patient to have CBC rechecked Will now continue diet as clear liquids for now and NPO after midnight for gastroenterology re-evaluation on 05/15/2020.
[2020-05-14] MEDS: ACETAMINOPHEN 325 MG TAB PO PRN (16:53)
[2020-05-14 17:11] LABS: Hematocrit (blood only) 31.5 % (37-47); Mean Corpuscular Hemoglobin 32.1 pg (25-34); RDW Coefficient of Variation 15.2 % (11.5-14.5); RDW Standard Deviation 55.6 fL (36.4-46.3); Red Blood Count 3.12 M/uL (4.2-5.4); White Blood Count 4.49 K/uL (4.8-10.8)
[2020-05-14 17:34] LABS: Basophils # (auto) 0.01 K/uL (0-0.2); Basophils % (auto) 0.2 %; Eosinophils # (auto) 0.12 K/uL (0-0.5); Eosinophils % (auto) 2.7 %; Immature Granulocytes # (auto) 0.01 K/uL (0.00-0.02); Immature Granulocytes % (auto) 0.2 %; Lymphocytes # (auto) 0.68 K/uL (1.2-3.4); Lymphocytes % (auto) 15.1 %; Mean Corpuscular Hgb Conc 31.7 g/dL (32-36); Mean Platelet Volume 11.4 fL (7.4-10.4); Monocytes # (auto) 0.54 K/uL (0.11-0.59); Neutrophils # (auto) 3.13 K/uL (1.4-6.5); Neutrophils % (auto) 69.8 %; Platelet Count 63 K/uL (130-400); Platelet Estimate Decreased (Normal)
[2020-05-14] MEDS: ATORVASTATIN 40 MG TAB PO SCH (20:47)
[2020-05-14] MEDS: INSULIN GLARGINE SOLOSTAR 100 UNITS/ML 3 ML PEN SC SCH (21:06)
[2020-05-15] MEDS: PANTOprazole 40 MG in DEXTROSE 5% 100 ML IV SCH ×2 (03:50→08:55)
[2020-05-15 06:18] LABS: Hematocrit (blood only) 29.1 % (37-47); Hemoglobin 9.2 g/dL (12.0-16.0); Mean Corpuscular Hemoglobin 31.7 pg (25-34); Mean Corpuscular Hgb Conc 31.6 g/dL (32-36); Mean Corpuscular Volume 100.3 fL (80-100); RDW Coefficient of Variation 15.2 % (11.5-14.5); RDW Standard Deviation 55.5 fL (36.4-46.3); White Blood Count 4.23 K/uL (4.8-10.8)
[2020-05-15 06:25] LABS: Mean Platelet Volume 11.6 fL (7.4-10.4); Platelet Count 71 K/uL (130-400)
[2020-05-15 06:41] LABS: Basophils # (auto) 0.01 K/uL (0-0.2); Basophils % (auto) 0.2 %; Eosinophils # (auto) 0.19 K/uL (0-0.5); Eosinophils % (auto) 4.5 %; Immature Granulocytes # (auto) 0.01 K/uL (0.00-0.02); Immature Granulocytes % (auto) 0.2 %; Lymphocytes % (auto) 18.9 %; Monocytes # (auto) 0.39 K/uL (0.11-0.59); Monocytes % (auto) 9.2 %; Neutrophils # (auto) 2.83 K/uL (1.4-6.5); RBC Morphology Unremarkable
[2020-05-15 07:05] LABS: Estimated Average Glucose 157 mg/dl; Hemoglobin A1C 7.1 % (4.5-5.6)
[2020-05-15 07:10] LABS: BUN Creatinine Ratio 7.5 (10-20); Calcium 8.8 mg/dl (8.5-10.1); Creatinine Clr Calc Pharmacy 9.7 ml/min; Est GFR (African American) 9.9; Est GFR (Non-African American) 8.6; Magnesium 2.3 mg/dl (1.8-2.4); Potassium 4.4 mmol/L (3.5-5.1)
[2020-05-15] MEDS ORDERED: Nursing to Pharmacy Communication SCH ×2 (08:45→19:00)
--- NOTE | 2020-05-15 10:28 | Progress Notes ---
DATE: 05/15/2020 NEPHROLOGY PROGRESS NOTE SUBJECTIVE: The patient has not had any bloody bowel movement for almost 12 hours now. She feels hemodynamically stable and denies any symptoms at this time. PHYSICAL EXAMINATION: VITAL SIGNS: Blood pressure is 158/64, pulse 60, temperature 36.4, 98% on room air. HEENT: Mucous membranes moist. NECK: Supple. No jugular venous distention. CHEST: Bilateral clear to auscultation. CARDIOVASCULAR: S1, S2 regular. ABDOMEN: Soft, nontender. EXTREMITIES: Show no edema. LABORATORY TEST: Reviewed and shows creatinine of 4.69, BUN 34. Hemoglobin is 9.2, which is slightly less than on admission. ASSESSMENT AND PLAN: A 74-year-old female with end-stage renal disease, on chronic hemodialysis through a looped forearm graft [id number], admitted with gastrointestinal bleed. End-stage renal disease: She appears hemodynamically stable and has no evidence of fluid or electrolyte emergency. She will get dialysis tomorrow as per her normal schedule TTS. She has been written for 3 hours 30 minutes on a 2K bath and we will take about 1.5-2 kilo of fluid off. MTDD
--- NOTE | 2020-05-15 10:51 | Hospitalist Progress Note ---
Date of Service May 15, 2020 Assessment & Plan (1) Acute GI bleeding: Anemia of ESRD with Gastrointestinal bleed likely from hemorrhoids Thrombocytopenia -As per ED notes on 05/14/2020 "74 yr old female arrives for evaluation of rectal bleeding. Patient notes she felt like she had to have a BM this morning. She notes some mild straining and had large BM. Looking at stool realized it was black and bloody. Over next hour had several episodes of bloody bowel movements. Notes since EMS arrived her bleeding has decreased" -The presentation hemoglobin of 10.2 is not different from patient's baseline -admitting hospitalist notes that patient's s her Coumadin was stopped last admission because of low platelets and also hematochezia, Started on Protonix drip -as per gastroenterology on 05/14/2020 that GI bleed "GIB likely from hemorrhoids, hgb is at baseline, HD stable. No previous pathology on last EGD, had polyps on last colonoscopy and is due for a repeat in June 2020. -05/14/2020: Around 4 PM, patient had blood per rectum which was witnessed by nursing as patient could not get to bathroom fast enough -05/15/2020: Hospitalist discussed with gastroenterology team on 05/15/2020 evaluation and at this time there are no plans for endoscopy as the GI impres padmini that blood per rectum were from hemorrhoids. Start anusol cream BID per rectum for hemorrhoids. IV pantoprazole drip to be discontinued. continue to monitor in the hospital as per gastroenterology recommendations (2) Biventricular ICD (implantable cardioverter-defibrillator) in place: -History of atrial fibrillation, History of left bundle branch block status post biventricular pacemaker placed in the past -no longer on coumadin as per admission notes -INR is normal on ED presentation -continue home dose carvedilol and amiodarone -home dose aspirin is held for now Hypertension Hyperlipidemia Chronic congestive heart failure. -On carvedilol, hydralazine -on statin -continue home dose torsemide for now Diabetes Mellitus Type 2 with Longer Term Current use of Insulin -the home dose insulin is tentatively reduced to be Lantus 8 units at bedtime and insulin sliding scale while assessing dietary status -Follow the blood sugars. Gastroesophageal reflux disease. Continue Protonix (3) ESRD on dialysis: -nephrology consult following the patient, next scheduled dialysis will be Friday05/16/2020 -continue renal vitamin supplements and phosphorous binders PT/OT, case management consult Deep venous thrombosis prophylaxis: sequential compression devices Admission and Anticipated Discharge Date Admission Date: May 14, 2020 Subjective Hospitalist discussed with gastroenterology team on 05/15/2020 evaluation and at this time there are no plans for endoscopy as the GI impression that blood per rectum were from hemorrhoids. Start anusol cream BID per rectum for hemorrhoids. IV pantoprazole drip to be discontinued Patient seen and examined while sitting up in the chair. On room air. No respiratory distress. No acute distress. No reported symptoms of pain or dizziness. Patient denies more GI bleed today so far. Review of Systems Review of Systems: All systems reviewed & are unremarkable except as noted in Subjective Physical Exam Constitutional: cooperative and comfortable Eyes: PERRL, conjunctivae normal, anicteric sclerae EOM intact bilaterally ENMT: external ear and nose normal, oropharynx normal Neck: normal visual inspection Respiratory: normal respiratory effort, lungs clear to auscultation Cardiovascular: Rate/Rhythm: + bradycardic (paced) Chest (Breasts): Chest: + pacemaker Gastrointestinal (Abdomen): normal bowel sounds, soft, nontender, no hepatosplenomegaly Musculoskeletal: Head/Neck/Chest: normocephalic and head atraumatic Neurologic: PERRL, EOMI, accommodation nl, no face palsy, no dysarthria Psychiatric: A+Ox3, euthymic affect Results & Data Results & Data ([facility]) Vital Signs (Past 12 Hours) Vital Signs Temp Pulse Resp BP Pulse Ox 05/15/20 07:10 36.4 C L 60 18 158/64 H 98 05/15/20 03:29 36.4 C L 64 16 122/63 95 05/14/20 22:59 36.8 C 61 18 135/66 98
[2020-05-15] MEDS ORDERED: HYDROCORTISONE HC 2.5% CRM 30GM TUBE EXT PRN (10:53)
[2020-05-15] MEDS ORDERED: HYDROCORTISONE HC 2.5% CRM 30GM TUBE EXT ONE (10:53)
[2020-05-15] MEDS: PYRIDOXINE HCL 50 MG TAB PO SCH (11:16)
[2020-05-15] MEDS: ADVANCED PROBIOTIC 1250 MG CAPSULE PO SCH (11:17)
[2020-05-15] MEDS: CYANOCOBALAMIN 500 MCG TABLET (VITAMIN B-12) PO SCH (11:17)
[2020-05-15] MEDS: CHOLECALCIFEROL 1,000 UNITS 25 MCG TAB PO SCH (11:17)
[2020-05-15] MEDS: hydrALAZINE TAB 50 MG TAB PO SCH ×3 (11:17→21:04)
[2020-05-15] MEDS: carvediloL 25 MG TAB PO SCH ×2 (11:18→21:05)
[2020-05-15] MEDS: AMIODARONE 200 MG TAB PO SCH (11:18)
[2020-05-15] MEDS: CALCIUM ACETATE 667 MG CAP/TAB PO SCH ×3 (11:18→17:24)
[2020-05-15] MEDS: INSULIN ASPART 100 UNITS/ML 3 ML PEN SC SCH ×4 (12:34→21:06)
[2020-05-15] MEDS: ACETAMINOPHEN 325 MG TAB PO PRN (12:50)
--- NOTE | 2020-05-15 13:40 | Gastroenterology Progress Note ---
Date of Service May 15, 2020 Assessment & Plan (1) Rectal bleeding: Likely secondary to hemorrhoidal bleeding. Her story of bleeding beginning with constipation and straining is very suggestive of hemorrhoidal bleeding. Also considered is ischemic colitis and diverticular bleeding. Recommend treating for hemorrhoidal bleeding agree with topical steroids. Renal diet, soft consistency. No plans for endoscopy during this inpatient stay. Outpatient colonoscopy is already scheduled for June 2020. We will go forward with this as scheduled. GI will follow peripherally. Please contact us if hemodynamically significant gross GI bleeding and drop in hemoglobin. Present on Admission?: Yes Admission and Anticipated Discharge Date Admission Date: May 14, 2020 Supervising Physician Co-Signing Physician Notes I have personally seen and examined the patient with BLAISE Barron on 05/15/2020. Her note reflects my exam and findings. I agree with her impression and plan. Presentation most c/w outlet bleeding. Had colonoscopy last year and is due this winter. Follow H/H. Treat constipation and avoid straining. Matthew Luther M.D. Subjective Ms. Ellie Villar is a 74 yr old female pt of Dr. Zeynep Byrnes with ESR D who was admitted yesterday for painless rectal bleeding after having strained with constipation. She tells us that the stool was a combination of black and red. Hb baseline is 10, -> 9.2 this morning. Recent colonoscopy was in 2019 with several polyps she is scheduled for surveillance colonoscopy in June 2020. Review of Systems Review of Systems: ROS: Gen: Denies weakness, fevers, weight loss Eyes: No eye redness, or pain, no recent vision changes Resp: No SOB, no cough Cardio: No palpitations/irregular beats, no chest pain GI:as per HPI, otherwise negative : Denies pain on urination Skin: No jaundice, itching or new rashes Physical Exam Constitutional: WD/WN, vitals as above Eyes: PERRL, conjunctivae normal, anicteric sclerae ENMT: external ear and nose normal, oropharynx normal Neck: trachea midline, no thyromegaly Respiratory: normal respiratory effort, lungs clear to auscultation Cardiovascular: RRR, no murmur, no edema Gastrointestinal (Abdomen): normal bowel sounds, soft, nontender, no hepatosplenomegaly Reducible umbilical hernia is present Skin: no rashes, warm and dry Neurologic: PERRL, EOMI, accommodation nl, no face palsy, no dysarthria Lymphatic: no cervical or axillary lymphadenopathy Results & Data ([facility]) Vital Signs (Past 12 Hours) Vital Signs Temp Pulse Resp BP Pulse Ox 05/15/20 11:13 36.6 C 62 18 180/66 H 100 05/15/20 11:10 98 05/15/20 07:10 36.4 C L 60 18 158/64 H 98 05/15/20 03:29 36.4 C L 64 16 122/63 95 Laboratory Results WBC 4.2, Hb 9.2, HCT 29, plts 71, NA 136, K4.4, BUN 34, CR 4.6
[2020-05-15] MEDS: ATORVASTATIN 40 MG TAB PO SCH (21:04)
[2020-05-15] MEDS: INSULIN GLARGINE SOLOSTAR 100 UNITS/ML 3 ML PEN SC SCH (21:05)
[2020-05-16] MEDS: ACETAMINOPHEN 325 MG TAB PO PRN ×2 (00:18→21:39)
[2020-05-16 07:09] LABS: Hematocrit (blood only) 21.9 % (37-47); Mean Corpuscular Hemoglobin 31.5 pg (25-34); Mean Corpuscular Volume 98.6 fL (80-100); RDW Standard Deviation 54.7 fL (36.4-46.3); Red Blood Count 2.22 M/uL (4.2-5.4); White Blood Count 4.29 K/uL (4.8-10.8)
[2020-05-16 07:14] LABS: Mean Platelet Volume 10.5 fL (7.4-10.4); Platelet Count 73 K/uL (130-400)
[2020-05-16 07:28] LABS: Basophils # (auto) 0.01 K/uL (0-0.2); Basophils % (auto) 0.2 %; Eosinophils # (auto) 0.16 K/uL (0-0.5); Eosinophils % (auto) 3.7 %; Immature Granulocytes # (auto) 0.01 K/uL (0.00-0.02); Immature Granulocytes % (auto) 0.2 %; Lymphocytes # (auto) 0.84 K/uL (1.2-3.4); Lymphocytes % (auto) 19.6 %; Monocytes # (auto) 0.38 K/uL (0.11-0.59); Monocytes % (auto) 8.9 %; Neutrophils # (auto) 2.89 K/uL (1.4-6.5); Neutrophils % (auto) 67.4 %; RBC Morphology Unremarkable
[2020-05-16] MEDS: INSULIN ASPART 100 UNITS/ML 3 ML PEN SC SCH ×4 (07:33→21:46)
[2020-05-16] MEDS ORDERED: SODIUM CHLORIDE 0.9% 250 ML IV PRN (07:45)
[2020-05-16 07:51] LABS: BUN Creatinine Ratio 8.6 (10-20); Creatinine Clr Calc Pharmacy 7.9 ml/min; Est GFR (African American) 7.8; Est GFR (Non-African American) 6.7; Magnesium 2.1 mg/dl (1.8-2.4); Potassium 4.4 mmol/L (3.5-5.1)
--- NOTE | 2020-05-16 07:55 | Hospitalist Progress Note ---
Date of Service May 16, 2020 Assessment & Plan (1) Acute GI bleeding: Anemia of ESRD with Gastrointestinal bleed likely from hemorrhoids Thrombocytopenia -As per ED notes on 05/14/2020 "74 yr old female arrives for evaluation of rectal bleeding. Patient notes she felt like she had to have a BM this morning. She notes some mild straining and had large BM. Looking at stool realized it was black and bloody. Over next hour had several episodes of bloody bowel movements. Notes since EMS arrived her bleeding has decreased" -The presentation hemoglobin of 10.2 is not different from patient's baseline -admitting hospitalist notes that patient's s her Coumadin was stopped last admission because of low platelets and also hematochezia, Started on Protonix drip -as per gastroenterology on 05/14/2020 that GI bleed "GIB likely from hemorrhoids, hgb is at baseline, HD stable. No previous pathology on last EGD, had polyps on last colonoscopy and is due for a repeat in June 2020. -05/14/2020: Around 4 PM, patient had blood per rectum which was witnessed by nursing as patient could not get to bathroom fast enough -05/15/2020: Hospitalist discussed with gastroenterology team on 05/15/2020 evaluation and at this time there are no plans for endoscopy as the GI impres padmini that blood per rectum were from hemorrhoids. Start anusol cream BID per rectum for hemorrhoids. IV pantoprazole drip to be discontinued. continue to monitor in the hospital as per gastroenterology recommendations 05/16/2020: Hemoglobin dropped to 7 in the AM labs. Patient denies blood with bowel movements overnight, but nurse affirmed that there were multiple episodes of blood in previous night in the bowel movements. Patient is asymptomatic. remains no abdomen pain. no chest discomforts. no shortness of breath. breathing on room air. She ate the breakfast - no nausea. The plan today will be to transfuse patient with 2 units of PRBC and then have patient go to dialysis. Gastroenterology notified to continue following the patient. Tentatively hospitalist will have patient NPO after midnight while awaiting further GI assessments (2) Biventricular ICD (implantable cardioverter-defibrillator) in place: -History of atrial fibrillation, History of left bundle branch block status post biventricular pacemaker placed in the past -no longer on coumadin as per admission notes -INR is normal on ED presentation -continue home dose carvedilol and amiodarone -home dose aspirin is held for now Hypertension Hyperlipidemia Chronic congestive heart failure. -On carvedilol, hydralazine -on statin -continue home dose torsemide for now Diabetes Mellitus Type 2 with Longer Term Current use of Insulin -the home dose insulin have current been half of patient's usual long acting insulin (currently Lantus 8 units at bedtime) and insulin sliding scale while assessing dietary status because of recent days patient have been off and on NPO while being assessed for GI bleed -Follow the blood sugars. Gastroesophageal reflux disease. Continue Protonix (3) ESRD on dialysis: -ESRD on dialysis Friday using left forearm AV fistula -nephrology consult following the patient, dialysis to be performed on Friday05/16/2020 -continue renal vitamin supplements and phosphorous binders PT/OT, case management consult Deep venous thrombosis prophylaxis: sequential compression devices Admission and Anticipated Discharge Date Admission Date: May 14, 2020 Subjective 05/16/2020: Hemoglobin dropped to 7 in the AM labs. Patient denies blood with bowel movements overnight, but nurse affirmed that there were multiple episodes of blood in previous night in the bowel movements. Patient is asymptomatic. remains no abdomen pain. no chest discomforts. no shortness of breath. breathing on room air. She ate the breakfast - no nausea. The plan today will be to transfuse patient with 2 units of PRBC and then have patient go to dialysis. Gastroenterology notified to continue following the patient. Tentatively hospitalist will have patient NPO after midnight while awaiting further GI assessments Review of Systems Review of Systems: All systems reviewed & are unremarkable except as noted in Subjective Physical Exam Constitutional: cooperative and comfortable Eyes: PERRL, conjunctivae normal, anicteric sclerae EOM intact bilaterally ENMT: external ear and nose normal, oropharynx normal Neck: normal visual inspection Respiratory: normal respiratory effort, lungs clear to auscultation Cardiovascular: Rate/Rhythm: + bradycardic (paced) Chest (Breasts): Chest: + pacemaker Gastrointestinal (Abdomen): normal bowel sounds, soft, nontender, no hepatosplenomegaly Musculoskeletal: Head/Neck/Chest: normocephalic and head atraumatic Neurologic: PERRL, EOMI, accommodation nl, no face palsy, no dysarthria Psychiatric: A+Ox3, euthymic affect Results & Data Results & Data ([facility]) Vital Signs (Past 12 Hours) Vital Signs Temp Pulse Resp BP Pulse Ox 05/16/20 07:20 36.4 C L 59 L 18 148/62 H 100 05/16/20 03:17 36.6 C 61 18 106/54 L 100 05/15/20 23:04 36.8 C 61 18 133/58 L 99 05/15/20 20:58 36.4 C L 61 16 150/58 H 100
[2020-05-16] MEDS ORDERED: EPOETIN ALFA 10,000 UNITS in SYRINGE 0 ML IV SCH (10:30)
[2020-05-16] MEDS ORDERED: EPOETIN ALFA 10,000 UNITS/ML VIAL IV ONE (10:45)
--- NOTE | 2020-05-16 10:56 | Progress Notes ---
DATE: 05/16/2020 NEPHROLOGY DIALYSIS NOTE SUBJECTIVE: The patient was seen during dialysis, so far she is tolerating it very well. Blood pressure is slightly high at 171/61. AV graft is working fine. OBJECTIVE: VITAL SIGNS: Blood pressure 171/61, pulse rate 60, temperature 36.7, 100% on room air. HEENT: Mucous membranes moist. NECK: Supple. No jugular venous distention. CHEST: Bilateral clear to auscultation. CARDIOVASCULAR: S1, S2 regular. ABDOMEN: Soft, nontender. EXTREMITIES: Show trace edema. LABORATORY TEST: From this morning was reviewed and shows creatinine of 5.73, BUN 49. Normal electrolytes. Hemoglobin dropped to 7 and she is getting blood transfusion during dialysis. Platelet count 73,000. ASSESSMENT AND PLAN: A 74-year-old female with end-stage renal disease, on chronic hemodialysis through a looped forearm graft on Friday, , Friday, admitted with gastrointestinal bleed. 1. End-stage renal disease: We will increase the time to 3 hours 30 minutes as she is also getting blood transfusion. We will try to take about 2.5 kilo off. No heparin with dialysis. She will be getting Epogen 10,000 units. 2. Gastrointestinal bleed: Platelet counts are low, hemoglobin dropped to 7 and she is getting blood transfusion. Reviewed gastrointestinal note, which says she probably had hemorrhoidal bleeding. She is not getting a colonoscopy at this time.
--- NOTE | 2020-05-16 11:39 | Gastroenterology Progress Note ---
Date of Service May 16, 2020 Assessment & Plan (1) Rectal bleeding: Likely secondary to hemorrhoidal bleeding. Her story of bleeding beginning with constipation and straining is very suggestive of hemorrhoidal bleeding. Also considered is ischemic colitis and diverticular bleeding. Recommend treating for hemorrhoidal bleeding agree with topical steroids, prevent constipation with stool softeners or miralax daily. Renal diet, soft consistency. No plans for endoscopy during this inpatient stay. Outpatient colonoscopy is already scheduled for June 2020. We will go forward with this as scheduled. GI will follow peripherally. Please contact us if hemodynamically significant gross GI bleeding and drop in hemoglobin. Admission and Anticipated Discharge Date Admission Date: May 14, 2020 Supervising Physician Co-Signing Physician Notes I have personally seen and examined the patient with BLAISE Barron on 05/16/2020. Her note reflects my exam and findings. I agree with her impression and plan. Getting dialysis. Outlet bleeding. Cont to follow H/H and clinically. Matthew Luther M.D. Subjective Ms. Ellie Villar is a 74 yr old female pt of Dr. Zeynep Byrnes with ESRD who was admitted 05/14 for painless rectal bleeding after having strained with constipation. She tells us that the stool was a combination of black and red. Had two small black/red BMs since yesterday. Hb baseline is 10, -> 9.2 ->7 this morning. Transfused with dialysis. Recent colonoscopy was in 2019 with several polyps she is scheduled for surveillance colonoscopy in June 2020. Review of Systems Review of Systems: ROS: Gen: Denies weakness, fevers, weight loss Eyes: No eye redness, or pain, no recent vision changes Resp: No SOB, no cough Cardio: No palpitations/irregular beats, no chest pain GI:as per HPI, otherwise negative : Denies pain on urination Skin: No jaundice, itching or new rashes Physical Exam Constitutional: WD/WN, vitals as above Eyes: PERRL, conjunctivae normal, anicteric sclerae ENMT: external ear and nose normal, oropharynx normal Neck: trachea midline, no thyromegaly Respiratory: normal respiratory effort, lungs clear to auscultation Cardiovascular: RRR, no murmur, no edema Gastrointestinal (Abdomen): normal bowel sounds, soft, nontender, no hepatosplenomegaly Skin: no rashes, warm and dry Neurologic: PERRL, EOMI, accommodation nl, no face palsy, no dysarthria Lymphatic: no cervical or axillary lymphadenopathy Results & Data ([facility]) Vital Signs (Past 12 Hours) Vital Signs Temp Pulse Pulse Pulse Resp BP BP 05/16/20 11:20 60 168/67 H 05/16/20 11:08 36.7 C 60 16 182/69 H 05/16/20 11:00 60 183/68 H 05/16/20 10:53 36.7 C 60 16 183/76 H 05/16/20 10:40 60 171/65 H 05/16/20 10:37 36.7 C 60 18 171/61 H 05/16/20 10:22 36.7 C 60 18 171/61 H 05/16/20 10:20 60 171/61 H 05/16/20 10:11 36.7 C 59 L 18 165/64 H 05/16/20 10:00 59 L 157/63 H 05/16/20 09:56 36.8 C 60 18 159/56 H 05/16/20 09:40 60 137/60 05/16/20 09:39 36.8 C 62 18 133/64 05/16/20 09:12 36.8 C 62 05/16/20 07:20 36.4 C L 59 L 18 148/62 H 05/16/20 06:45 60 05/16/20 03:17 36.6 C 61 18 106/54 L Pulse Ox 05/16/20 11:20 05/16/20 11:08 100 05/16/20 11:00 05/16/20 10:53 100 05/16/20 10:40 05/16/20 10:37 100 05/16/20 10:22 100 05/16/20 10:20 05/16/20 10:11 100 05/16/20 10:00 05/16/20 09:56 100 05/16/20 09:40 05/16/20 09:39 100 05/16/20 09:12 05/16/20 07:20 100 05/16/20 06:45 05/16/20 03:17 100 Laboratory Results WBC 4, Hb 7, Hct 21, Plat 73, Na 136, K 4.4, BUN 49, Cr 5.
[2020-05-16] MEDS: CALCIUM ACETATE 667 MG CAP/TAB PO SCH ×3 (13:21→16:39)
[2020-05-16] MEDS: carvediloL 25 MG TAB PO SCH ×2 (14:15→21:40)
[2020-05-16] MEDS: hydrALAZINE TAB 50 MG TAB PO SCH ×3 (14:15→21:41)
[2020-05-16] MEDS: CHOLECALCIFEROL 1,000 UNITS 25 MCG TAB PO SCH (14:16)
[2020-05-16] MEDS: LORATADINE 10 MG TAB PO SCH (14:16)
[2020-05-16] MEDS: AMIODARONE 200 MG TAB PO SCH (14:16)
[2020-05-16] MEDS: CYANOCOBALAMIN 500 MCG TABLET (VITAMIN B-12) PO SCH (14:17)
[2020-05-16] MEDS: PYRIDOXINE HCL 50 MG TAB PO SCH (14:17)
[2020-05-16] MEDS: ADVANCED PROBIOTIC 1250 MG CAPSULE PO SCH (14:17)
[2020-05-16 15:28] LABS: Hematocrit (blood only) 30.1 % (37-47); Mean Corpuscular Hemoglobin 31.3 pg (25-34); Mean Corpuscular Hgb Conc 33.2 g/dL (32-36); Mean Corpuscular Volume 94.4 fL (80-100); Mean Platelet Volume 10.4 fL (7.4-10.4); Platelet Count 74 K/uL (130-400); RDW Coefficient of Variation 15.9 % (11.5-14.5); Red Blood Count 3.19 M/uL (4.2-5.4); White Blood Count 3.86 K/uL (4.8-10.8)
[2020-05-16 15:36] LABS: Basophils # (auto) 0.01 K/uL (0-0.2); Basophils % (auto) 0.3 %; Eosinophils # (auto) 0.11 K/uL (0-0.5); Eosinophils % (auto) 2.8 %; Immature Granulocytes # (auto) 0.01 K/uL (0.00-0.02); Immature Granulocytes % (auto) 0.3 %; Lymphocytes # (auto) 0.69 K/uL (1.2-3.4); Lymphocytes % (auto) 17.9 %; Monocytes # (auto) 0.45 K/uL (0.11-0.59); Monocytes % (auto) 11.7 %; Neutrophils # (auto) 2.59 K/uL (1.4-6.5)
[2020-05-16] MEDS: ATORVASTATIN 40 MG TAB PO SCH (21:40)
[2020-05-16] MEDS: INSULIN GLARGINE SOLOSTAR 100 UNITS/ML 3 ML PEN SC SCH (21:45)
[2020-05-17 06:11] LABS: Hematocrit (blood only) 27.8 % (37-47); Hemoglobin 9.1 g/dL (12.0-16.0); Mean Corpuscular Hemoglobin 31.2 pg (25-34); Mean Corpuscular Hgb Conc 32.7 g/dL (32-36); Mean Corpuscular Volume 95.2 fL (80-100); RDW Coefficient of Variation 16.3 % (11.5-14.5); RDW Standard Deviation 56.7 fL (36.4-46.3); Red Blood Count 2.92 M/uL (4.2-5.4)
[2020-05-17 06:16] LABS: Mean Platelet Volume 10.9 fL (7.4-10.4); Platelet Count 64 K/uL (130-400)
[2020-05-17 06:34] LABS: Basophils # (auto) 0.01 K/uL (0-0.2); Basophils % (auto) 0.3 %; Eosinophils # (auto) 0.11 K/uL (0-0.5); Eosinophils % (auto) 2.8 %; Immature Granulocytes # (auto) 0.02 K/uL (0.00-0.02); Immature Granulocytes % (auto) 0.5 %; Lymphocytes # (auto) 0.84 K/uL (1.2-3.4); Lymphocytes % (auto) 21.5 %; Monocytes # (auto) 0.42 K/uL (0.11-0.59); Monocytes % (auto) 10.8 %; Neutrophils % (auto) 64.1 %; RBC Morphology Unremarkable
[2020-05-17 06:40] LABS: Albumin Level 2.9 gm/dl (3.4-5.0); BUN Creatinine Ratio 7.7 (10-20); Calcium 8.3 mg/dl (8.5-10.1); Est GFR (African American) 13.1; Est GFR (Non-African American) 11.3; Potassium 3.7 mmol/L (3.5-5.1)
[2020-05-17 06:47] LABS: Albumin Globulin Ratio 0.9 (0.9-2); Bilirubin,Total 0.5 mg/dl (0.2-1); Globulin 3.4 gm/dl (2.5-4.0); Total Protein 6.3 gm/dl (6.4-8.2)
[2020-05-17] MEDS: INSULIN ASPART 100 UNITS/ML 3 ML PEN SC SCH ×3 (07:39→16:38)
[2020-05-17] MEDS: CALCIUM ACETATE 667 MG CAP/TAB PO SCH ×3 (07:44→16:32)
[2020-05-17] MEDS: AMIODARONE 200 MG TAB PO SCH (08:05)
[2020-05-17] MEDS: CYANOCOBALAMIN 500 MCG TABLET (VITAMIN B-12) PO SCH (08:05)
[2020-05-17] MEDS: hydrALAZINE TAB 50 MG TAB PO SCH ×2 (08:05→15:10)
[2020-05-17] MEDS: carvediloL 25 MG TAB PO SCH (08:06)
[2020-05-17] MEDS: PYRIDOXINE HCL 50 MG TAB PO SCH (08:06)
[2020-05-17] MEDS: CHOLECALCIFEROL 1,000 UNITS 25 MCG TAB PO SCH (08:06)
[2020-05-17] MEDS: ADVANCED PROBIOTIC 1250 MG CAPSULE PO SCH (08:07)
--- NOTE | 2020-05-17 14:52 | Discharge Summary ---
Date of Service May 17, 2020 Admission HPI Per Admitting Provider HISTORY OF PRESENT ILLNESS: This is a 74-year-old female with past medical history significant for end-stage renal disease on hemodialysis, type 2 diabetes, secondary hypothyroidism, paroxysmal atrial fibrillation, history of chronic systolic heart failure, left bundle branch block, cardiomegaly, history of CVA, hypertension, GERD, osteoporosis, anemia of chronic kidney disease, thrombocytopenia, depression, biventricular implantable cardioverter defibrillator, history of anxiety, who lives with her cousin, comes because of GI bleed. The patient says he woke up around 2:00 in the morning and had a bowel movement the stool was black in color, had few more episodes and when she wiped, it was somewhat bloody. It happened for 2-3 episodes which worried her and came to the ER. Her hemoglobin is stable at 10.2. By the time she was coming here, the episodes had stopped. Currently resting comfortable and hemodynamically stable. She has some abdominal discomfort. Denies any nausea or vomiting. No headache, no blurred visions. Hard of hearing. Has postnasal drip and cough from it, cough is improved currently. No difficulty swallowing. Appetite is okay. No chest pain, no shortness of breath. No rash. Ambulates with the help of walker at home. Admission Exam Per Admitting Provider PHYSICAL EXAMINATION: GENERAL: The patient is of moderate build, not in acute distress. VITAL SIGNS: Temperature 36.8, pulse 60, respiratory rate 16, blood pressure 145/68, oxygen 100% on room air. HEENT: Pupils equal, round, and reactive to light. Oral mucosa moist. NECK: No JVD, no neck masses. CARDIOVASCULAR: S1, S2 heard. Regular rate and rhythm. No murmur, no gallop. RESPIRATORY SYSTEM: Normal AP diameter. No accessory muscle use. No wheezing, no crackles. ABDOMEN: Soft, bowel sounds present. Nontender. No distention. CENTRAL NERVOUS SYSTEM: Cranial nerves II-XII grossly intact. Nonfocal. EXTREMITIES: No edema, no erythema. Principal Diagnosis Anemia of ESRD with Gastrointestinal bleed likely from hemorrhoids Thrombocytopenia ESRD on dialysis Discharge Exam CONSTITUTIONAL: WNWD, vitals as above, generally well-appearing EYES: normal conjunctivae, no scleral icterus ENT: external ear and nose normal, MMM. Poor dentition. RESPIRATORY: clear to auscultation bilaterally, no crackles, rales or wheezes, normal respiratory effort CARDIOVASCULAR: regular rate and rhythm, S1 and 2 heard without murmurs, gallops or rubs, no JVD, no peripheral edema GASTROINTESTINAL: soft, nontender, nondistended, no guarding MUSCULOSKELETAL: moves all extremities equally, head is normocephalic and atraumatic SKIN: warm and dry, fistula LUE NEUROLOGIC: No facial palsy. CN 2-12 grossly intact, normal cognition, normal speech, no gross focal deficits. PSYCHIATRIC: alert cooperative and oriented Discharge Data Allergies Allergy/AdvReac Type Severity Reaction Status Date / Time adhesive Allergy Unknown RXN TO Verified 05/14/20 05:27 ADHESIVE ON NITRO PATCH strawberry Allergy Unknown EDEMA OF Verified 05/14/20 05:27 FACE /LIPS /TONGUE DESIREE Inhibitors AdvReac Mild COUGH Verified 05/14/20 05:27 diphenhydramine AdvReac Mild VERY WEAK, Verified 05/14/20 05:27 CHF lisinopril AdvReac Mild COUGH Verified 05/14/20 05:27 nitroglycerin AdvReac Mild HEADACHE/NA Verified 05/14/20 05:27 USEA Sulfa (Sulfonamide AdvReac Mild "KNOCKS ME Verified 05/14/20 05:27 Antibiotics) OUT" amlodipine AdvReac Unknown RETAIN Verified 05/14/20 05:27 FLUID Consultations 05/14/20 05:14 ED Decision to Admit Stat 05/14/20 07:52 Consult Case Management - Discharge Planning Routine 05/14/20 08:00 Consult Gastroenterology Routine Consult Nephrology Routine Hospital Course (1) Acute GI bleeding: (2) Thrombocytopenia: (3) ESRD on dialysis: The patient is a 74-year-old female who presented with a few episodes of black stools per rectum. Notably, her Coumadin was stopped during her last admission because of low platelets and hematochezia at that time. She was hemodynamically stable this admission and started on Protonix drip. Her hemoglobin was stable at 10.2. She was kept n.p.o. and her aspirin was also held. She was admitted to the hospitalist service and gastroenterology was consulted for further recommendations. Bleeding was thought likely from her hemorrhoids as her hemoglobin was at baseline. She had no prior pathology seen on last EGD and had polyps on last colonoscopy, due and scheduled for repeat colonoscopy in June 2020. Anusol cream per rectum twice daily was started and her hemoglobin was trended and remained stable. No further plans for endoscopy during the inpatient stay was warranted. Initial hemoglobin was 10.2, this dropped to 9.2 on 05/15, then dropped to 7.0 on 05/16. She received 2 units of blood with a posttransfusion hemoglobin of 10. Her discharge hemoglobin hematocrit was 9.1/27.8. She also has thrombocytopenia and her discharge platelet level was 64. She reported an improvement in bleeding per rectum. She continued with hemodialysis sessions while inpatient and nephrology managed this. At time of discharge she was hemodynamically stable and afebrile and tolerating p.o. She was mentating and ambulating at baseline and will follow up with gastroenterology for her scheduled colonoscopy in June. She was given a trial of steroids per rectum to use at home and given specific instructions on how to manage constipation with MiraLAX and fiber supplementation. Close primary care follow-up is recommended with a consideration given to repeating the complete blood count at that time to ensure no further transfusion is needed. Total Time Total Time Spent Total Time Spent (In Minutes): 60 Total Time Includes: Examination of the Patient, Discharge Planning, Medication Reconciliation and Communication With Other Providers Discharge Plan Discharge Items Patient Disposition: Home - Self-Care Reason For Visit: GI BLEED Discharge Diagnosis: Anemia of ESRD with Gastrointestinal bleed likely from hemorrhoids Thrombocytopenia ESRD on dialysis Activity: Resume your previous activity Non-emergency contact: Primary Care Provider Call non-emergency contact if: you have any medication questions, your symptoms worsen, your pain is not controlled, your pain is worsening, your pain is unusual for you, your pain is concerning for you and you have a fever Follow-up/Referrals: Zeynep Johnson MD [Primary Care Provider] - (Date & Time 05/22/2020 1:00 PM Provider Zeynep Loaiza MD Department Internal Medicine [facility] ) Diet: Carb Consistent or DM2 and Dialysis Renal Addtl Attending Provider Instructions: Please take all medications as instructed on discharge list below. Please note that your aspirin has been held until you are able to follow-up with your primary care physician to ensure you have not had any further bleeding. During this time, we discussed you are at increased risk of stroke from atrial fibrillation. Please connect with your beaming inspector for further questions or concerns about this. You are also being given a topical steroid to apply per rectum to help reduce the swelling and inflammation around your hemorrhoids. Please use this no longer than 2 weeks, and start by using once at nighttime prior to sleep. We also discussed management of constipation with MiraLAX and a fiber supplement. [id number] fiber supplement such as Metamucil or Citrucel are acceptable. Please start by using once daily MiraLAX until you have regular daily bowel movements. Then add once daily fiber supplementation, taking both the MiraLAX and fiber together for 2 to 3 days. Once you ensure a stable regular bowel movement continue with the fiber supplementation by itself, coming off the MiraLAX altogether. You can still use MiraLAX as needed for constipation episodes. Please follow-up with [facility] gastroenterology as instructed for your scheduled colonoscopy in June 2020. Please note your iron supplementation has also been held temporarily as this will continue to add to your constipation issues. You did receive blood while in the hospital and this has a significant iron load associated with it. This will need to be monitored as outpatient by your primary care physician. Please continue with your regularly scheduled hemodialysis sessions without interruption. It was a pleasure taking care of you! Please call if you have any questions or problems. You can reach a [facility] hospitalist on duty at [facility] 24 hours a day by calling [phone]. Take care of yourself. Cheryl Ricketts, DO [facility] Hospitalist Pending Studies at Discharge: No Stand-Alone Forms: My [facility] Medications and DC Order Prescriptions: New hydrocortisone [Proctosol HC] 2.5 % Cream With Perineal Applicator 1 applic EXT BID PRN (Reason: hemorrhoids) Qty: 30 RF: 0 Continued atorvastatin 40 mg tablet 40 mg PO HS RF: 0 carvedilol 25 mg tablet 50 mg PO BID RF: 0 torsemide 20 mg tablet 20 mg PO QAM RF: 0 amiodarone 200 mg tablet 200 mg PO QAM RF: 0 Lantus Solostar U-100 Insulin 100 unit/mL (3 mL) insulin pen 16 units subcut PM RF: 0 hydralazine 50 mg tablet 50 mg PO TID RF: 0 lorazepam [Ativan] 0.5 mg tablet 0.5 - 1 mg PO DAILY PRN (Reason: Anxiety) RF: 0 polyethylene glycol 3350 [Miralax] 17 gram Powder In Packet 17 g PO DAILY PRN (Reason: Constipation) RF: 0 acetaminophen 500 mg Tablet 1,000 mg PO Q6H PRN (Reason: Pain) RF: 0 lidocaine-prilocaine 2.5-2.5 % Cream 1 applic topical UD RF: 0 albuterol sulfate 90 mcg/actuation HFA aerosol inhaler 2 puff INHALATION Q4 PRN (Reason: Shortness Of Breath Or Wheezing) RF: 0 docusate sodium 100 mg Tablet 100 mg PO QAM RF: 0 pantoprazole 40 mg Tablet,Delayed Release (Dr/Ec) 40 mg PO QAM Qty: 30 RF: 1 ondansetron HCl [Zofran] 4 mg tablet 4 mg PO Q8H PRN (Reason: nausea and vomiting) Qty: 20 RF: 0 Probiotic (B. coagulans) 10 billion cell capsule,delayed release(DR/EC) 0 cell PO DAILY RF: 0 loratadine [Claritin] 10 mg tablet 10 mg PO Q OTHER DAY RF: 0 calcium acetate(phosphat bind) 667 mg capsule 667 mg PO TIDM RF: 0 cholecalciferol (vitamin D3) [Vitamin D3] 50 mcg (2,000 unit) capsule 4,000 unit PO DAILY RF: 0 ascorbic acid (vitamin C) [Vitamin C] 500 mg tablet 500 mg PO DAILY RF: 0 cyanocobalamin (vitamin B-12) [Vitamin B-12] 1,000 mcg Tablet 1,000 mcg PO DAILY RF: 0 pyridoxine (vitamin B6) [Vitamin B-6] 100 mg Tablet 100 mg PO DAILY RF: 0 Discontinued aspirin 81 mg tablet,delayed release (DR/EC) 81 mg PO DAILY RF: 0 ferrous sulfate [iron] 325 mg (65 mg iron) Tablet 325 mg PO DAILY RF: 0 Discharge Orders: Discharge Order (Routine); Ordered 05/17/20 Ordered By: Cheryl Rodriges/Other Patient Handouts: Managing Type 2 Diabetes Admission Data Admit Date/Time: 05/14/20 06:21 Attending Provider: Cheryl Ricketts Admit Provider: Germán Jamison Primary Care Provider: Zeynep Johnson Other Providers: Germán Jamison ; Alli Grace ; Akiko Liu ; Burak Zaragoza ; Melodie Pacheco ; Gayatri Garcia ; Kasey Anthony ; Magdaleno Jang ; [facility]
== END 2020-05-17 17:15 | disposition home health service (06) | DRG 393 ==
LOC: ED 03:54 → SUATTDRO 06:21 → 2S 06:21

== ENCOUNTER 2020-12-28 09:40 | Observation (INO) ==
--- NOTE | 2020-12-28 10:42 | Emergency Department Note ---
History of Present Illness General Chief complaint: TIA Symptoms Stated complaint: VISION ISSUES Time Seen by Provider: 12/28/20 10:14 History of Present Illness Maximum Pain Intensity: 2 Ellie Villar is a 75-year-old female with h/o DM2, CKD on HD, ICD, prior h/o TIA who comes to the ED for left eye visual disturbance and left foot numbness during dialysis this AM. She was receiving dialysis this AM and had 2.5L removed when she began complaining of blurry vision out of her left eye and also said things "looked green" out of that eye. Patient said this lasted for about 30 minutes. She also reports left ankle and foot tingling during this time. All the symptoms resolved and since then she is only complaining of her left eye feeling a bit puffy and a mild headache. Denies arm weakness, speech difficulties, confusion, loss of consciousness, nausea, vomiting. Home Medications Medication Instructions Recorded Confirmed Type Lantus Solostar U-100 Insulin 10 units SUBCUT PM 10/30/18 12/28/20 History amiodarone 200 mg PO QAM 10/30/18 12/28/20 History atorvastatin 40 mg PO HS 10/30/18 12/28/20 History carvedilol 50 mg PO BID 10/30/18 12/28/20 History torsemide 20 mg PO QAM 10/30/18 12/28/20 History hydralazine 50 mg PO TID 04/27/19 12/28/20 History lorazepam [Ativan] 0.5 mg PO DAILY PRN 04/27/19 12/28/20 History acetaminophen 1,000 mg PO Q6H PRN 09/03/19 12/28/20 History albuterol sulfate 2 puff INHALATION Q4 PRN 09/03/19 12/28/20 History docusate sodium 100 mg PO QAM 09/03/19 12/28/20 History lidocaine-prilocaine 1 applic TOPICAL UD 09/03/19 12/28/20 History polyethylene glycol 3350 [Miralax] 8.5 g PO DAILY PRN 09/03/19 12/28/20 History ondansetron HCl [Zofran] 4 mg PO Q8H PRN #20 tab 03/24/20 12/28/20 Rx Probiotic (B. coagulans) 0 cell PO DAILY 05/14/20 12/28/20 History calcium acetate(phosphat bind) 667 mg PO TIDM 05/14/20 12/28/20 History loratadine [Claritin] 10 mg PO Q OTHER DAY 05/14/20 12/28/20 History hydrocortisone [Proctosol HC] 1 applic EXT BID PRN #30 g 05/17/20 12/28/20 Rx Combivent Respimat 1 puff INHALATION Q4H PRN 12/28/20 12/28/20 History aspirin 81 mg PO DAILY 12/28/20 12/28/20 History insulin aspart U-100 [Novolog 0 unit SUBCUT UD 12/28/20 12/28/20 History Flexpen U-100 Insulin] omeprazole 20 mg PO DAILY 12/28/20 12/28/20 History Allergies Allergy/AdvReac Type Severity Reaction Status Date / Time adhesive Allergy Mild RXN TO Verified 12/28/20 12:19 ADHESIVE ON NITRO PATCH strawberry Allergy Unknown EDEMA OF Verified 12/28/20 12:19 FACE /LIPS /TONGUE amlodipine AdvReac Intermediate RETAIN Verified 12/28/20 12:19 FLUID DESIREE Inhibitors AdvReac Mild COUGH Verified 12/28/20 12:19 diphenhydramine AdvReac Mild VERY WEAK, Verified 12/28/20 12:19 CHF lisinopril AdvReac Mild COUGH Verified 12/28/20 12:19 nitroglycerin AdvReac Mild HEADACHE/NA Verified 12/28/20 12:19 USEA Sulfa (Sulfonamide AdvReac Mild "KNOCKS ME Verified 12/28/20 12:19 Antibiotics) OUT" Past Med/Surg History Medical History Acute GI bleeding Anemia of renal disease Anxiety Biventricular ICD (implantable cardioverter-defibrillator) in place meditronic 01/2012 @ [facility], [place] Cirrhosis Degenerative cervical disc Depression Diabetes mellitus, type II End-stage renal disease (ESRD) Endocarditis Pacemaker wire vegetation ESRD (end stage renal disease) on dialysis [id number]-thy in [facility] in [place] GERD (gastroesophageal reflux disease) H/O TIA (transient ischemic attack) and stroke in --effected left side/balance Hearing deficit History of congestive heart failure History of recent blood transfusion 2 units PRBCS in May 2020 HTN (hypertension) Hx of supraventricular tachycardia Idiopathic cardiomyopathy Left bundle branch block (11/07/11) 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) use of 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 currently not taking any--taken off since GI bleed in Nov Osteoarthritis Paroxysmal atrial fibrillation Pericardial effusion Proteinuria PVD (peripheral vascular disease) Secondary hyperparathyroidism Seizure hx of from ages 11-40s--unknown cause--was on dilantin, no meds now, no neurologist Slow transit constipation Streptococcus bovis infection Bacteremia with pacemaker lead vegetation Thrombocytopenia Vascular dialysis catheter in place Surgical History H/O dilation and curettage History of appendectomy History of cataract surgery bilt History of colonoscopy with polypectomy History of esophagogastroduodenoscopy (EGD) History of hysterectomy History of left breast biopsy benign History of left hip hemiarthroplasty History of right breast biopsy benign History of wisdom tooth extraction S/P pericardial surgery Pericardial window for pericardial effusion Family History Brother Diabetes Mother Diabetes Coronary heart disease Sister Diabetes Uncle Family history of esophageal cancer Other No family history of adverse response to anesthesia Social History Smoking Status: Never smoker 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 and A total of 10 systems reviewed and were otherwise negative Physical Exam Vital Signs Vital Signs - 24 hr 12/28/20 09:52 Temperature 36.8 C Temperature Source Oral Pulse Rate 65 Respiratory Rate 18 Respiratory Effort / Characteristics Non-Labored Spontaneous Respiratory Depth Normal Blood Pressure 163/68 H Blood Pressure Mean 99 Blood Pressure Position Lying Pulse Oximetry 98 Oxygen Delivery Method Room Air Sepsis Recent Fever Within 48 Hours No Sepsis New/Unexplained Change in Mental Status N/A Sepsis Action Taken by Nursing No Action Required Vital signs reviewed. General: Chronically ill-appearing, in no significant distress. HEENT: No scleral icterus, PERRLA, neck supple. Atraumatic. Cardiovascular: Rate controlled with irregularity, systolic ejection murmur Pulmonary: Clear to auscultation bilaterally, normal work of breathing. Abdomen: Soft, nontender, nondistended, positive bowel sounds. Musculoskeletal: Atraumatic, minimal peripheral edema. Neurologic: Patient awake alert and oriented x 3, equal strength in all 4 extremities. Cranial nerves 2 through 12 grossly intact. Speech is clear. Skin: Warm, dry, no rash Course Administered Medications Discontinued Medications Amiodarone HCl (Amiodarone 200 Mg Tab) 200 mg PO QAM DANY Stop: 01/28/21 08:59 Last Admin: 12/29/20 08:28 Dose: 200 mg Documented by: [id number] Aspirin (Aspirin 81 Mg Ectab) 81 mg PO DAILY DANY Stop: 01/28/21 08:59 Last Admin: 12/29/20 08:28 Dose: 81 mg Documented by: [id number] Atorvastatin Calcium (Atorvastatin 40 Mg Tab) 40 mg PO HS DANY Stop: 01/27/21 20:59 Last Admin: 12/28/20 20:33 Dose: 40 mg Documented by: [id number] Calcium Acetate (Calcium Acetate 667 Mg Cap/Tab) 667 mg PO TIDM DANY Stop: 01/27/21 16:59 Last Admin: 12/29/20 17:22 Dose: 667 mg Documented by: [id number] Admin: 12/29/20 12:16 Dose: 667 mg Documented by: [id number] Admin: 12/29/20 08:37 Dose: 667 mg Documented by: [id number] Admin: 12/28/20 17:06 Dose: 667 mg Documented by: [id number] Carvedilol (Carvedilol 25 Mg Tab) 50 mg PO BID DANY Stop: 01/27/21 20:59 Last Admin: 12/29/20 09:53 Dose: 50 mg Documented by: [id number] Admin: 12/28/20 20:33 Dose: 50 mg Documented by: [id number] Docusate Sodium (Docusate Sodium 100 Mg Cap) 100 mg PO QAM DANY Stop: 01/28/21 08:59 Last Admin: 12/29/20 08:27 Dose: 100 mg Documented by: [id number] Hydralazine HCl (Hydralazine Tab 50 Mg Tab) 50 mg PO TID [facility] Stop: 01/27/21 13:59 Last Admin: 12/29/20 15:25 Dose: 50 mg Documented by: [id number] Admin: 12/29/20 09:54 Dose: 50 mg Documented by: [id number] Admin: 12/28/20 20:33 Dose: 50 mg Documented by: [id number] Admin: 12/28/20 15:32 Dose: 50 mg Documented by: [id number] Insulin Aspart (Insulin Aspart 100 Units/Ml 3 Ml Pen) 0 units SC ACHS [facility] Stop: 01/27/21 16:29 Last Admin: 12/29/20 17:21 Dose: 2 units Documented by: [id number] Cosigned by: [id number] Admin: 12/29/20 12:14 Dose: 3 units Documented by: [id number] Cosigned by: [id number] Admin: 12/29/20 08:25 Dose: Not Given Documented by: [id number] Admin: 12/28/20 20:35 Dose: 2 units Documented by: [id number] Cosigned by: [id number] Admin: 12/28/20 17:07 Dose: 3 units Documented by: [id number] Cosigned by: [id number] Insulin Glargine (Insulin Glargine Solostar 100 Units/Ml 3 Ml Pen) 0 units SC HS [facility] Stop: 01/27/21 20:59 Last Admin: 12/28/20 20:34 Dose: 10 units Documented by: [id number] Cosigned by: [id number] Ioversol (Optiray 320 125ml) 120 ml IV ONCE ONE Stop: 12/28/20 10:59 Last Admin: 12/28/20 10:58 Dose: 120 ml Documented by: [id number] Lactobacillus Acidoph/Casei/Rhamnos (Advanced Probiotic 1250 Mg Capsule) 2 cap PO DAILY [facility] Stop: 01/28/21 08:59 Last Admin: 12/29/20 08:28 Dose: 2 cap Documented by: [id number] Loratadine (Loratadine 10 Mg Tab) 10 mg PO Q2D [facility] Stop: 01/28/21 08:59 Last Admin: 12/29/20 09:53 Dose: 10 mg Documented by: [id number] Pantoprazole Sodium (Pantoprazole 40 Mg Tab) 40 mg PO DAILY [facility] Stop: 01/28/21 08:59 Last Admin: 12/29/20 08:28 Dose: 40 mg Documented by: [id number] Patiromer (Patiromer Calcium Sorbitex 8.4 Gm Pack) 8.4 gm PO DAILY [facility] Stop: 12/29/20 11:01 Last Admin: 12/29/20 11:49 Dose: 8.4 gm Documented by: [id number] Torsemide (Torsemide 20 Mg Tab) 20 mg PO QAM [facility]ANY Stop: 01/28/21 08:59 Last Admin: 12/29/20 09:54 Dose: 20 mg Documented by: [id number] Medical Decision Making Differential Diagnosis Infection, dehydration, metabolic abnormality, hypo/hyperglycemia, electrolyte disturbance, anemia, hypoxia, cardiac sources, intracerebral event, toxicologic, neurologic, as well as other pathologies. Medical Records Attestation: I reviewed the patient's medical records. Home Medications Current Medication List: was personally reviewed by me Laboratory Data Attestation: I reviewed the patient's lab results. Result diagrams: 12/29/20 07:34 12/29/20 07:34 Lab Results 12/28/20 12/28/20 12/28/20 Range/Units 10:35 10:35 10:35 WBC 4.87 (4.8-10.8) K/uL RBC 3.44 L (4.2-5.4) M/uL Hgb 11.3 L (12.0-16.0) g/dL Hct 35.5 L (37-47) % MCV 103.2 H (80-100) fL MCH 32.8 (25-34) pg MCHC 31.8 L (32-36) g/dL RDW Std Deviation 58.8 H (36.4-46.3) fL RDW Coeff of Jacobo 15.5 H (11.5-14.5) % Plt Count 96 L (130-400) K/uL MPV 10.6 H (7.4-10.4) fL Immature Gran % (Auto) 0.6 % Neut % (Auto) 69.8 % Lymph % (Auto) 14.6 % [place] % (Auto) 11.3 % Eos % (Auto) 3.3 % Baso % (Auto) 0.4 % Neut # (Auto) 3.40 (1.4-6.5) K/uL Lymph # (Auto) 0.71 L (1.2-3.4) K/uL [place] # (Auto) 0.55 (0.11-0.59) K/uL Eos # (Auto) 0.16 (0-0.5) K/uL Baso # (Auto) 0.02 (0-0.2) K/uL Immature Gran # (Auto) 0.03 H (0.00-0.02) K/uL Macrocytosis Present Ovalocytes 1+ ESR (0-30) mm/hr PT 11.2 (9.0-12.0) Seconds INR 1.1 (0.9-1.1) APTT 25.9 (21.0-31.0) Seconds PTT Ratio 1.0 Sodium 137 (136-145) mmol/L Potassium 4.5 (3.5-5.1) mmol/L Chloride 102 (98-107) mmol/L Carbon Dioxide 28 (21-32) mmol/L Anion Gap 7.0 (3-11) BUN 17 (7-18) mg/dl Creatinine 2.99 H (0.6-1.2) mg/dl Est Cr Clr Drug Dosing 14.8 ml/min Est GFR ( Amer) 17.0 ml/min Est GFR (Non-Af Amer) 14.6 ml/min BUN/Creatinine Ratio 5.8 L (10-20) Glucose 113 H (70-99) mg/dl Calcium 9.9 (8.5-10.1) mg/dl Magnesium 2.4 (1.8-2.4) mg/dl Total Bilirubin 0.8 (0.2-1) mg/dl AST 13 L (15-37) U/L ALT 11 L (12-78) U/L Alkaline Phosphatase 105 (45-117) U/L Troponin I < 0.015 (0-0.045) ng/ml C-Reactive Protein (0-0.29) mg/dl Total Protein 8.3 H (6.4-8.2) gm/dl Albumin 3.9 (3.4-5.0) gm/dl Globulin 4.4 H (2.5-4.0) gm/dl Albumin/Globulin Ratio 0.9 (0.9-2) COVID-19 Eval Order SARS-CoV-2 (PCR) (Negative) 0612/28/20 12/28/20 Range/Units 10:35 10:35 11:38 WBC (4.8-10.8) K/uL RBC (4.2-5.4) M/uL Hgb (12.0-16.0) g/dL Hct (37-47) % MCV (80-100) fL MCH (25-34) pg MCHC (32-36) g/dL RDW Std Deviation (36.4-46.3) fL RDW Coeff of Jacobo (11.5-14.5) % Plt Count (130-400) K/uL MPV (7.4-10.4) fL Immature Gran % (Auto) % Neut % (Auto) % Lymph % (Auto) % [place] % (Auto) % Eos % (Auto) % Baso % (Auto) % Neut # (Auto) (1.4-6.5) K/uL Lymph # (Auto) (1.2-3.4) K/uL [place] # (Auto) (0.11-0.59) K/uL Eos # (Auto) (0-0.5) K/uL Baso # (Auto) (0-0.2) K/uL Immature Gran # (Auto) (0.00-0.02) K/uL Macrocytosis Ovalocytes ESR 37 H (0-30) mm/hr PT (9.0-12.0) Seconds INR (0.9-1.1) APTT (21.0-31.0) Seconds PTT Ratio Sodium (136-145) mmol/L Potassium (3.5-5.1) mmol/L Chloride (98-107) mmol/L Carbon Dioxide (21-32) mmol/L Anion Gap (3-11) BUN (7-18) mg/dl Creatinine (0.6-1.2) mg/dl Est Cr Clr Drug Dosing ml/min Est GFR ( Amer) ml/min Est GFR (Non-Af Amer) ml/min BUN/Creatinine Ratio (10-20) Glucose (70-99) mg/dl Calcium (8.5-10.1) mg/dl Magnesium (1.8-2.4) mg/dl Total Bilirubin (0.2-1) mg/dl AST (15-37) U/L ALT (12-78) U/L Alkaline Phosphatase (45-117) U/L Troponin I (0-0.045) ng/ml C-Reactive Protein 0.70 H (0-0.29) mg/dl Total Protein (6.4-8.2) gm/dl Albumin (3.4-5.0) gm/dl Globulin (2.5-4.0) gm/dl Albumin/Globulin Ratio (0.9-2) COVID-19 Eval Order Covid19 at [facility], [place] SARS-CoV-2 (PCR) (Negative) 12/28/20 Range/Units 11:38 WBC (4.8-10.8) K/uL RBC (4.2-5.4) M/uL Hgb (12.0-16.0) g/dL Hct (37-47) % MCV (80-100) fL MCH (25-34) pg MCHC (32-36) g/dL RDW Std Deviation (36.4-46.3) fL RDW Coeff of Jacobo (11.5-14.5) % Plt Count (130-400) K/uL MPV (7.4-10.4) fL Immature Gran % (Auto) % Neut % (Auto) % Lymph % (Auto) % [place] % (Auto) % Eos % (Auto) % Baso % (Auto) % Neut # (Auto) (1.4-6.5) K/uL Lymph # (Auto) (1.2-3.4) K/uL [place] # (Auto) (0.11-0.59) K/uL Eos # (Auto) (0-0.5) K/uL Baso # (Auto) (0-0.2) K/uL Immature Gran # (Auto) (0.00-0.02) K/uL Macrocytosis Ovalocytes ESR (0-30) mm/hr PT (9.0-12.0) Seconds INR (0.9-1.1) APTT (21.0-31.0) Seconds PTT Ratio Sodium (136-145) mmol/L Potassium (3.5-5.1) mmol/L Chloride (98-107) mmol/L Carbon Dioxide (21-32) mmol/L Anion Gap (3-11) BUN (7-18) mg/dl Creatinine (0.6-1.2) mg/dl Est Cr Clr Drug Dosing ml/min Est GFR ( Amer) ml/min Est GFR (Non-Af Amer) ml/min BUN/Creatinine Ratio (10-20) Glucose (70-99) mg/dl Calcium (8.5-10.1) mg/dl Magnesium (1.8-2.4) mg/dl Total Bilirubin (0.2-1) mg/dl AST (15-37) U/L ALT (12-78) U/L Alkaline Phosphatase (45-117) U/L Troponin I (0-0.045) ng/ml C-Reactive Protein (0-0.29) mg/dl Total Protein (6.4-8.2) gm/dl Albumin (3.4-5.0) gm/dl Globulin (2.5-4.0) gm/dl Albumin/Globulin Ratio (0.9-2) COVID-19 Eval Order SARS-CoV-2 (PCR) NEGATIVE (Negative) Imaging Data Radiologist's Impression: Head CT 12/28/20 10:34 CT SCAN OF THE BRAIN WITHOUT IV CONTRAST CLINICAL HISTORY: Strokelike symptoms. Left foot numbness. Left-sided visual changes. COMPARISON STUDY: CT of the brain dated 10/14/2017. TECHNIQUE: Unenhanced axial CT scan of the brain is performed from the vertex to the skull base. A dose lowering technique was utilized adhering to the principles of ALARA. FINDINGS: Brain parenchyma: There are age-related involutional changes noting moderate confluent subcortical and periventricular microangiopathic change. There is no hemorrhage, mass effect, or evidence of acute territorial ischemia by CT criteri a. Cutler-white matter differentiation is preserved. No extra-axial fluid collection is seen. Mineralization is noted in the basal ganglia. Ventricles, sulci, cisterns: Prominent secondary to involutional change. Intracranial vasculature: There is atherosclerotic calcification of the cavernous carotid and vertebral arteries. Calvarium: Unremarkable. Sinuses and mastoids: The visualized paranasal sinuses are clear. There is trace right mastoid effusion. The left mastoid air cells are well pneumatized. Orbits: The bony orbits are grossly intact. There are bilateral ocular lens implants. IMPRESSION: There is no hemorrhage, mass effect, or evidence of acute territorial ischemia by CT criteria. ACT 112: Negative or not required by law. Electronically signed by: Colten Jacinto M.D. 12/28/2020 11:08 AM Head CTA 12/28/20 10:34 CT ANGIOGRAM OF THE BRAIN; CT ANGIOGRAM OF THE NECK CLINICAL HISTORY: Strokelike symptoms. Left foot numbness. Left-sided visual changes. COMPARISON STUDY: Unenhanced CT of the brain performed concurrently on 12/28/2020. TECHNIQUE: Following the IV administration of 120 of Optiray 320, CT angiogram of the head and neck was performed from the aortic arch to the vertex. Images are reviewed in the axial, sagittal, and coronal planes. 3-D MIPS images are created and assessed. IV contrast was administered without complication. All measurements were calculated based on NASCET criteria. A dose lowering te chnique was utilized adhering to the principles of ALARA. CT DOSE: 1017.63 mGy.cm FINDINGS: Brain parenchyma: There is age-related involutional change noting moderate subcortical and periventricular microangiopathic disease. There is no hemorrhage, mass effect, or evidence of acute territorial ischemia by CT criteria. There is no evidence of enhancing mass lesion on the angiogram phase images. The ventricles, sulci, and cisterns are prominent secondary to involutional change. Cutler-white matter differentiation is preserved. No extra- axial fluid collection is seen. Mineralization is noted in the basal ganglia. Thoracic aorta: There is advanced atherosclerotic calcification of the thoracic aorta. Visualized portions of the thoracic aorta are normal in caliber. The aortic arch demonstrates standard 3-vessel anatomy. Right carotid arterial system: The right common carotid artery is widely patent. Advanced atherosclerotic plaque causes approximately 50-60% focal stenosis at the origin of the right internal carotid artery. The mid to distal portions of the right internal carotid artery are widely patent. The right external carotid artery is clear. Left carotid arterial system: The left common carotid artery is widely patent. Advanced atherosclerotic plaque is seen in the carotid bulb. This causes less than 50% luminal narrowing at the origin of the left internal carotid artery. The mid to distal left internal carotid artery is widely patent, as is the left external carotid artery. Vertebral arteries: The vertebral arteries are widely patent bilaterally noting a left-sided dominance. Subclavian arteries: Widely patent bilaterally. Intracranial vasculature: There is atherosclerotic calcification of the cavernous carotid and vertebral arteries The internal carotid arteries are patent at the skull base, as are the anterior and middle cerebral arteries bilaterally. The vertebrobasilar system and posterior cerebral arteries are widely patent. The left vertebral artery is dominant. The intracranial right vertebral artery is diminutive. There is no aneurysm, high-grade stenosis, or focal vessel cut off seen throughout the intracranial circulation. Jugular veins: Patent bilaterally. A right internal jugular central venous catheter is in place. Dural sinuses: Patent. Lung apices: Partially visualized upper lobe lung parenchyma appears clear. Pacemaker leads are noted at the left thoracic inlet. Soft tissues: The visualized pharyngeal soft tissues are normal in appearance noting angiographic phase technique. The oropharyngeal airway appears widely patent. The salivary and thyroid glands are normal in appearance. No cervical lymphadenopathy is seen. Skeletal structures: The skeletal structures are osteopenic. The calvarium appears intact. The cervical spine is maintained noting multilevel spondylosis. No lytic or blastic lesion is seen. Sinuses and mastoids: The paranasal sinuses are clear. There is trace right mastoid effusion. The left mastoid air cells are well pneumatized. IMPRESSION: 1. There is no evidence of hemorrhage, mass effect, or evidence of acute territorial ischemia noting angiographic phase technique. 2. Unremarkable CT angiogram of the brain. 3. Advanced atherosclerotic plaque causes 50-60% focal stenosis at the origin of the right internal carotid artery. 4. There is less than 50% focal stenosis at the origin of the left internal carotid artery. ACT 112: Negative or not required by law. Electronically signed by: Colten Jacinto M.D. 12/28/2020 11:28 AM Neck CTA 12/28/20 10:34 CT ANGIOGRAM OF THE BRAIN; CT ANGIOGRAM OF THE NECK CLINICAL HISTORY: Strokelike symptoms. Left foot numbness. Left-sided visual changes. COMPARISON STUDY: Unenhanced CT of the brain performed concurrently on 12/28/2020. TECHNIQUE: Following the IV administration of 120 of Optiray 320, CT angiogram of the head and neck was performed from the aortic arch to the vertex. Images are reviewed in the axial, sagittal, and coronal planes. 3-D MIPS images are created and assessed. IV contrast was administered without complication. All measurements were calculated based on NASCET criteria. A dose lowering technique was utilized adhering to the principles of ALARA. CT DOSE: 1017.63 mGy.cm FINDINGS: Brain parenchyma: There is age-related involutional change noting moderate subcortical and periventricular microangiopathic disease. There is no hemorrhage, mass effect, or evidence of acute territorial ischemia by CT criteria. There is no evidence of enhancing mass lesion on the angiogram phase images. The ventricles, sulci, and cisterns are prominent secondary to involutional change. Cutler-white matter differentiation is preserved. No extra- axial fluid collection is seen. Mineralization is noted in the basal ganglia. Thoracic aorta: There is advanced atherosclerotic calcification of the thoracic aorta. Visualized portions of the thoracic aorta are normal in caliber. The aortic arch demonstrates standard 3-vessel anatomy. Right carotid arterial system: The right common carotid artery is widely patent. Advanced atherosclerotic plaque causes approximately 50-60% focal stenosis at the origin of the right internal carotid artery. The mid to distal portions of the right internal carotid artery are widely patent. The right external carotid artery is clear. Left carotid arterial system: The left common carotid artery is widely patent. Advanced atherosclerotic plaque is seen in the carotid bulb. This causes less than 50% luminal narrowing at the origin of the left internal carotid artery. The mid to distal left internal carotid artery is widely patent, as is the left external carotid artery. Vertebral arteries: The vertebral arteries are widely patent bilaterally noting a left-sided dominance. Subclavian arteries: Widely patent bilaterally. Intracranial vasculature: There is atherosclerotic calcification of the cavernous carotid and vertebral arteries The internal carotid arteries are patent at the skull base, as are the anterior and middle cerebral arteries bilaterally. The vertebrobasilar system and posterior cerebral arteries are widely patent. The left vertebral artery is dominant. The intracranial right vertebral artery is diminutive. There is no aneurysm, high-grade stenosis, or focal vessel cut off seen throughout the intracranial circulation. Jugular veins: Patent bilaterally. A right internal jugular central venous catheter is in place. Dural sinuses: Patent. Lung apices: Partially visualized upper lobe lung parenchyma appears clear. Pacemaker leads are noted at the left thoracic inlet. Soft tissues: The visualized pharyngeal soft tissues are normal in appearance noting angiographic phase technique. The oropharyngeal airway appears widely patent. The salivary and thyroid glands are normal in appearance. No cervical lymphadenopathy is seen. Skeletal structures: The skeletal structures are osteopenic. The calvarium appears intact. The cervical spine is maintained noting multilevel spondylosis. No lytic or blastic lesion is seen. Sinuses and mastoids: The paranasal sinuses are clear. There is trace right mastoid effusion. The left mastoid air cells are well pneumatized. IMPRESSION: 1. There is no evidence of hemorrhage, mass effect, or evidence of acute territorial ischemia noting angiographic phase technique. 2. Unremarkable CT angiogram of the brain. 3. Advanced atherosclerotic plaque causes 50-60% focal stenosis at the origin of the right internal carotid artery. 4. There is less than 50% focal stenosis at the origin of the left internal carotid artery. ACT 112: Negative or not required by law. Electronically signed by: Colten Jacinto M.D. 12/28/2020 11:28 AM ECG Data Attestation: I personally reviewed and interpreted this ECG as follows: Indication: + weakness Rate (beats per minute): 63 Rhythm: + other (AV dual paced rhythm with frequent ventricular paced complexes) ECG Intervals/blocks: + Prolonged QT (571) Comparison ECG Date: from (05/14/20) Change: the following changes noted (Rate has decreased) Blood Pressure Blood Pressure Findings: Elevated blood pressure Blood Pressure Disposition: further management by hospitalist MDM Narrative This patient was evaluated and appeared to be in no significant distress. IV access was obtained and laboratory work was drawn. An order for cardiac monitoring was placed and the patient is noted to be in a paced rhythm at 65 bpm. Patient's laboratory work reveals anemia with thrombocytopenia. Potassium is stable at 4.5. EKG reveals a paced rhythm. CT imaging of the head with CT angiogram reveals no acute intracranial hemorrhage or ischemic change however there is focal stenosis of the bilateral ICA. Given the patient's unilateral symptoms with foot numbness and visual changes, chronic kidney disease and dialysis status, it was felt she should be evaluated by the hospitalist service for further management and potentially further stroke evaluation. Impression & Plan TIA (transient ischemic attack), End stage renal disease on dialysis Discharge Plan Visit Data Chief Complaint: TIA Symptoms Stated Complaint: VISION ISSUES ED Provider: Michelle Altman ED Midlevel Provider: Eliot Batista. Discharge Problem: TIA (transient ischemic attack), End stage renal disease on dialysis Patient Disposition: Admitted As Inpatient Discharge Instructions Interventions: ED Discharge Assessment Last Done: 12/28/20 13:24
--- NOTE | 2020-12-28 10:48 | Emergency Department Note ---
ED Visit Note This patient was seen in concert with Dr. Altman and we discussed and agreed upon the history, physical, assessment, and plan. See attending's note for details. Resident Activity Tracking Resident Involvement: Resident Care Provided Care Provided: Adult ED
[2020-12-28] MEDS ORDERED: OPTIRAY 320 125ml IV ONE (10:58)
[2020-12-28 11:01] LABS: Hematocrit (blood only) 35.5 % (37-47); Hemoglobin 11.3 g/dL (12.0-16.0); Mean Corpuscular Hemoglobin 32.8 pg (25-34); Mean Corpuscular Hgb Conc 31.8 g/dL (32-36); Mean Corpuscular Volume 103.2 fL (80-100); RDW Coefficient of Variation 15.5 % (11.5-14.5); RDW Standard Deviation 58.8 fL (36.4-46.3); Red Blood Count 3.44 M/uL (4.2-5.4); White Blood Count 4.87 K/uL (4.8-10.8)
--- NOTE | 2020-12-28 11:10 | CT Scan Report ---
CT SCAN OF THE BRAIN WITHOUT IV CONTRAST CLINICAL HISTORY: Strokelike symptoms. Left foot numbness. Left-sided visual changes. COMPARISON STUDY: CT of the brain dated 10/14/2017. TECHNIQUE: Unenhanced axial CT scan of the brain is performed from the vertex to the skull base. A do se lowering technique was utilized adhering to the principles of ALARA. FINDINGS: Brain parenchyma: There are age-related involutional changes noting moderate confluent subcortical a nd periventricular microangiopathic change. There is no hemorrhage, mass effect, or evidence of acute territorial ischemia by CT criteria. Cutler-white matter differentiation is preserved. No extra-axial fluid collection is seen. Mineralization is noted in the basal ganglia. Ventricles, sulci, cisterns: Prominent secondary to involutional change. Intracranial vasculature: There is atherosclerotic calcification of the cavernous carotid and vertebr al arteries. Calvarium: Unremarkable. Sinuses and mastoids: The visualized paranasal sinuses are clear. There is trace right mastoid effusi on. The left mastoid air cells are well pneumatized. Orbits: The bony orbits are grossly intact. There are bilateral ocular lens implants. IMPRESSION: There is no hemorrhage, mass effect, or evidence of acute territorial ischemia by CT cathryn iglesias. ACT 112: Negative or not required by law. Electronically signed by: Colten Jacinto M.D. 12/28/2020 11:08 AM
[2020-12-28 11:11] LABS: INR 1.1 (0.9-1.1); Partial Thromboplastin Time 25.9 Seconds (21.0-31.0); Prothrombin Time 11.2 Seconds (9.0-12.0)
[2020-12-28 11:19] LABS: Alanine Aminotransferase 11 U/L (12-78); Albumin Level 3.9 gm/dl (3.4-5.0); Aspartate Aminotransferase 13 U/L (15-37); BUN Creatinine Ratio 5.8 (10-20); Blood Urea Nitrogen 17 mg/dl (7-18); Calcium 9.9 mg/dl (8.5-10.1); Carbon Dioxide 28 mmol/L (21-32); Chloride 102 mmol/L (98-107); Creatinine Clr Calc Pharmacy 14.8 ml/min; Est GFR (Non-African American) 14.6 ml/min; Glucose 113 mg/dl (70-99); Magnesium 2.4 mg/dl (1.8-2.4); Potassium 4.5 mmol/L (3.5-5.1); Sodium 137 mmol/L (136-145)
[2020-12-28 11:20] LABS: Basophils # (auto) 0.02 K/uL (0-0.2); Basophils % (auto) 0.4 %; Eosinophils # (auto) 0.16 K/uL (0-0.5); Eosinophils % (auto) 3.3 %; Immature Granulocytes # (auto) 0.03 K/uL (0.00-0.02); Immature Granulocytes % (auto) 0.6 %; Lymphocytes # (auto) 0.71 K/uL (1.2-3.4); Lymphocytes % (auto) 14.6 %; Macrocytosis Present; Mean Platelet Volume 10.6 fL (7.4-10.4); Monocytes # (auto) 0.55 K/uL (0.11-0.59); Monocytes % (auto) 11.3 %; Neutrophils % (auto) 69.8 %; Ovalocytes 1+; Platelet Count 96 K/uL (130-400)
[2020-12-28 11:23] LABS: Albumin Globulin Ratio 0.9 (0.9-2); Alkaline Phosphatase 105 U/L (45-117); Bilirubin,Total 0.8 mg/dl (0.2-1); Globulin 4.4 gm/dl (2.5-4.0); Total Protein 8.3 gm/dl (6.4-8.2); Troponin I < 0.015 ng/ml (0-0.045)
--- NOTE | 2020-12-28 11:30 | CT Scan Report ---
CT ANGIOGRAM OF THE BRAIN; CT ANGIOGRAM OF THE NECK CLINICAL HISTORY: Strokelike symptoms. Left foot numbness. Left-sided visual changes. COMPARISON STUDY: Unenhanced CT of the brain performed concurrently on 12/28/2020. TECHNIQUE: Following the IV administration of 120 of Optiray 320, CT angiogram of the head and neck w as performed from the aortic arch to the vertex. Images are reviewed in the axial, sagittal, and razia nal planes. 3-D MIPS images are created and assessed. IV contrast was administered without complicati on. All measurements were calculated based on NASCET criteria. A dose lowering technique was utilize d adhering to the principles of ALARA. CT DOSE: 1017.63 mGy.cm FINDINGS: Brain parenchyma: There is age-related involutional change noting moderate subcortical and periventri cular microangiopathic disease. There is no hemorrhage, mass effect, or evidence of acute territorial ischemia by CT criteria. There is no evidence of enhancing mass lesion on the angiogram phase images . The ventricles, sulci, and cisterns are prominent secondary to involutional change. Cutler-white jani er differentiation is preserved. No extra-axial fluid collection is seen. Mineralization is noted in the basal ganglia. Thoracic aorta: There is advanced atherosclerotic calcification of the thoracic aorta. Visualized por tions of the thoracic aorta are normal in caliber. The aortic arch demonstrates standard 3-vessel deshawn sherrell. Right carotid arterial system: The right common carotid artery is widely patent. Advanced atheroscler otic plaque causes approximately 50-60% focal stenosis at the origin of the right internal carotid ar tevin. The mid to distal portions of the right internal carotid artery are widely patent. The right ex ternal carotid artery is clear. Left carotid arterial system: The left common carotid artery is widely patent. Advanced atherosclerot ic plaque is seen in the carotid bulb. This causes less than 50% luminal narrowing at the origin of t he left internal carotid artery. The mid to distal left internal carotid artery is widely patent, as is the left external carotid artery. Vertebral arteries: The vertebral arteries are widely patent bilaterally noting a left-sided dominanc e. Subclavian arteries: Widely patent bilaterally. Intracranial vasculature: There is atherosclerotic calcification of the cavernous carotid and vertebr al arteries The internal carotid arteries are patent at the skull base, as are the anterior and middl e cerebral arteries bilaterally. The vertebrobasilar system and posterior cerebral arteries are widel y patent. The left vertebral artery is dominant. The intracranial right vertebral artery is diminutiv e. There is no aneurysm, high-grade stenosis, or focal vessel cut off seen throughout the intracrania l circulation. Jugular veins: Patent bilaterally. A right internal jugular central venous catheter is in place. Dural sinuses: Patent. Lung apices: Partially visualized upper lobe lung parenchyma appears clear. Pacemaker leads are noted at the left thoracic inlet. Soft tissues: The visualized pharyngeal soft tissues are normal in appearance noting angiographic pha se technique. The oropharyngeal airway appears widely patent. The salivary and thyroid glands are nor mal in appearance. No cervical lymphadenopathy is seen. Skeletal structures: The skeletal structures are osteopenic. The calvarium appears intact. The cervic al spine is maintained noting multilevel spondylosis. No lytic or blastic lesion is seen. Sinuses and mastoids: The paranasal sinuses are clear. There is trace right mastoid effusion. The lef t mastoid air cells are well pneumatized. IMPRESSION: 1. There is no evidence of hemorrhage, mass effect, or evidence of acute territorial ischemia noting angiographic phase technique. 2. Unremarkable CT angiogram of the brain. 3. Advanced atherosclerotic plaque causes 50-60% focal stenosis at the origin of the right internal c arotid artery. 4. There is less than 50% focal stenosis at the origin of the left internal carotid artery. ACT 112: Negative or not required by law. Electronically signed by: Colten Jacinto M.D. 12/28/2020 11:28 AM
--- NOTE | 2020-12-28 13:41 | History & Physical Report ---
Date of Service December 28, 2020 Assessment & Plan (1) Transient visual disturbance, left: This is a 75-year-old female who has significant past medical history of ESRD on HD //Fri, idiopathic cardiomyopathy with history of reduced EF now normalized status post biventricular ICD implantation, history of V. tach status post AICD, PAF off anticoagulation secondary to GI bleeding issues, T2DM insulin-dependent, cirrhosis of liver with ascites, thrombocytopenia, anemia of chronic disease, h istory of endocarditis, secondary hyperparathyroidism, HTN, HLD, history of remote CVA in who presents to ED secondary left eye visual changes x45 minutes. Symptoms have completely resolved ddx: Amaurosis fugax, TIA, ocular migraine Admit to med telemetry Consult neurology Unable to obtain MRI secondary to defibrillator Repeat CT scan in a.m. Neurochecks, PT/OT/ST A1c, the panel in a.m. Obtain echocardiogram CT head and neck reveal advanced atherosclerotic plaque causing 50 to 60% focal stenosis at the origin of the right ICA -will need vascular follow-up as outpatient follows with [facility] for AV fistula (2) Diabetes mellitus, type II: Controlled, last A1c 6.6 on 11/17/2020 Lantus/NovoLog per protocol (3) Idiopathic cardiomyopathy: History of idiopathic cardiomyopathy with NYHA class III systolic CHF status post biventricular ICD implantation with previously reduced ejection fraction HTN, HLD Most recent echo 03/20/2020 EF 50 to 55%, septal motion dyskinetic likely to due to RV pacemaker activation, RV mildly dilated, RV systolic ultimately reduced, severe TR, mild pulmonary hypertension Daily weights, strict I's and O's Hemodialysis for volume management Continue ASA, statin, Coreg, hydralazine, torsemide Interrogate pacer (4) Paroxysmal atrial fibrillation: On amiodarone and Coreg Also on amiodarone secondary to history of V. tach, pacemaker/AICD in place Off anticoagulation secondary to thrombocytopenia and GI bleeding Interrogate pacer to eval for A. fib (5) End-stage renal disease (ESRD): Hemodialysis Friday//Friday Full treatment today, 2.5 L removed Consult nephrology for dialysis needs Continue PhosLo, fluid restriction, daily weights (6) Anemia in ESRD (end-stage renal disease): H&H stable at 11.3 and 35.5 Monitor (7) Cirrhosis: (8) Ascites: Patient with distended abdomen, evidence of ascites on exam will check limited ultrasound Follows [facility] - last seen 08/2020 last paracentesis March 2020 (9) Thrombocytopenia: plt ct stable monitor (10) DVT prophylaxis: SCD/teds for now secondary to thrombocytopenia and history of bleeding Reeval daily need for chemical prophylaxis Dispo: Med telemetry PCP:Theodora Loaiza Full code Patient was seen and examined in collaboration with Dr. Ricketts, please see addendum History of Present Illness Chief Complaint: Left eye visual changes x45 minutes. Primary Care Provider: Zeynep Loaiza MD This is a 75-year-old female who has significant past medical history of ESRD on HD T//Fri, idiopathic cardiomyopathy with history of reduced EF now normalized status post biventricular ICD implantation, history of V. tach status post AICD, PAF off anticoagulation secondary to GI bleeding issues, T2DM insulin-dependent, cirrhosis of liver with ascites, thrombocytopenia, anemia of chronic disease, history of endocarditis, secondary hyperparathyroidism, HTN, HL D, history of remote CVA in who presents to ED secondary left eye visual changes x45 minutes. She was completing her dialysis treatment this morning and was seeing Dr. Teran when she complained of left eye being blurry. Described as "eye underwater." She denies theodora loss of vision, eye pain or tearing. She feels the lady she was looking at looked, "mint green." She feels the blurrin ess lasted approximately 45 minutes. She has never experienced this in the past and does not routinely see an eye doctor. She did have a mild frontal headache when symptoms occurred. She also had left midfoot tingling associated with visual change. She denied any slurred speech, difficulty swallowing, facial droop. Symptoms were witnessed by Dr. Teran and she referred her to ED. She denies any recent illness, fever, chills, sweats, lightheadedness, dizziness, syncope, change in hearing, chest pain, shortness breath at rest, URI symptoms, cough, nausea, vomiting, abdominal pain. She does admit to abdominal bloating and feels her abdomen has been more distended for the last several months. She denies any melena or hematochezia. Her last BM was 2 days ago. She is mostly anuric. She is off anticoagulation due to history of GI bleeding. She currently lives with her cousin. Symptoms resolved patient arrived at ED. She remained hemodynamically stable and mildly hypertensive. Lab work notable for H&H 11.3 and 35.5, platelet 96, creatinine 2.99. Head and neck CTA revealed advanced atherosclerotic plaque with 50 to 60% focal stenosis at the origin of the right internal carotid artery and less than 50% focal stenosis at the origin of the left internal carotid artery. She does have an AICD in place that is not MRI compatible. Allergies Allergy/AdvReac Type Severity Reaction Status Date / Time adhesive Allergy Mild RXN TO Verified 12/28/20 12:19 ADHESIVE ON NITRO PATCH strawberry Allergy Unknown EDEMA OF Verified 12/28/20 12:19 FACE /LIPS /TONGUE amlodipine AdvReac Intermediate RETAIN Verified 12/28/20 12:19 FLUID DESIREE Inhibitors AdvReac Mild COUGH Verified 12/28/20 12:19 diphenhydramine AdvReac Mild VERY WEAK, Verified 12/28/20 12:19 CHF lisinopril AdvReac Mild COUGH Verified 12/28/20 12:19 nitroglycerin AdvReac Mild HEADACHE/NA Verified 12/28/20 12:19 USEA Sulfa (Sulfonamide AdvReac Mild "KNOCKS ME Verified 12/28/20 12:19 Antibiotics) OUT" Home Medications Medication Instructions Recorded Confirmed Type Marly Solostar U-100 Insulin 10 units SUBCUT PM 10/30/18 12/28/20 History amiodarone 200 mg PO QAM 10/30/18 12/28/20 History atorvastatin 40 mg PO HS 10/30/18 12/28/20 History carvedilol 50 mg PO BID 10/30/18 12/28/20 History torsemide 20 mg PO QAM 10/30/18 12/28/20 History hydralazine 50 mg PO TID 04/27/19 12/28/20 History lorazepam [Ativan] 0.5 mg PO DAILY PRN 04/27/19 12/28/20 History acetaminophen 1,000 mg PO Q6H PRN 09/03/19 12/28/20 History albuterol sulfate 2 puff INHALATION Q4 PRN 09/03/19 12/28/20 History docusate sodium 100 mg PO QAM 09/03/19 12/28/20 History lidocaine-prilocaine 1 applic TOPICAL UD 09/03/19 12/28/20 History polyethylene glycol 3350 [Miralax] 8.5 g PO DAILY PRN 09/03/19 12/28/20 History ondansetron HCl [Zofran] 4 mg PO Q8H PRN #20 tab 03/24/20 12/28/20 Rx Probiotic (B. coagulans) 0 cell PO DAILY 05/14/20 12/28/20 History calcium acetate(phosphat bind) 667 mg PO TIDM 05/14/20 12/28/20 History loratadine [Claritin] 10 mg PO Q OTHER DAY 05/14/20 12/28/20 History hydrocortisone [Proctosol HC] 1 applic EXT BID PRN #30 g 05/17/20 12/28/20 Rx aspirin [Aspir-81] 81 mg PO DAILY 12/28/20 12/28/20 History insulin aspart U-100 [Novolog 0 unit SUBCUT UD 12/28/20 12/28/20 History Flexpen U-100 Insulin] ipratropium-albuterol [Combivent 1 puff INHALATION Q4H PRN 12/28/20 12/28/20 History Respimat] omeprazole 20 mg PO DAILY 12/28/20 12/28/20 History Past Med/Surg History Medical History (Updated 12/28/20 @ 13:44 by Gala Carvajal PA-C) Acute GI bleeding Anemia of renal disease Anxiety Biventricular ICD (implantable cardioverter-defibrillator) in place meditronic 01/2012 @ [facility] Cirrhosis Degenerative cervical disc Depression Diabetes mellitus, type II Endocarditis Pacemaker wire vegetation ESRD (end stage renal disease) on dialysis [id number] [place] GERD (gastroesophageal reflux disease) H/O TIA (transient ischemic attack) and stroke in --effected left side/balance Hearing deficit History of congestive heart failure History of recent blood transfusion 2 units PRBCS in May 2020 HTN (hypertension) Hx of supraventricular tachycardia Idiopathic cardiomyopathy Left bundle branch block (11/07/11) [facility] (current) use of 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 currently not taking any--taken off since GI bleed in May Osteoarthritis Paroxysmal atrial fibrillation Pericardial effusion Proteinuria PVD (peripheral vascular disease) Secondary hyperparathyroidism Seizure hx of from ages 11-40s--unknown cause--was on dilantin, no meds now, no neurologist Slow transit constipation Streptococcus bovis infection Bacteremia with pacemaker lead vegetation Thrombocytopenia Vascular dialysis catheter in place Surgical History H/O dilation and curettage History of appendectomy History of cataract surgery bilt History of colonoscopy with polypectomy History of esophagogastroduodenoscopy (EGD) History of hysterectomy History of left breast biopsy benign History of left hip hemiarthroplasty History of right breast biopsy benign History of wisdom tooth extraction S/P pericardial surgery Pericardial window for pericardial effusion Family History Brother Diabetes Mother Diabetes Coronary heart disease Sister Diabetes Uncle Family history of esophageal cancer Other No family history of adverse response to anesthesia Social History Smoking Status: Never smoker 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); Hx Alcohol Use: No Hx Substance Use: No Preferred Language: Hebrew Communication Ability: Effective Lab Support Technician Required: No Beliefs That Will Affect Care: None marital status: / Current Living Situation: Family Current Living Situation Comment: cousin lives with patient How many Children do You have: 2 Other Information That Helps Us Care for You: No Feels Safe at Home: Yes Safety Concerns: Feels Safe At This Time Assistive Devices: Walker Review of Systems Review of Systems: All systems reviewed & are unremarkable except as noted in HPI & below Physical Exam Physical Exam: Constitutional: WD/WN, F, vitals as above, NAD, sitting up in bed, pleasant, conversing easily Head: Normocephalic, Atraumatic Eyes: PERRL, conjunctivae normal, anicteric sclerae, visual roberson in tact, no eye redness, PEERLA, no nystagmus ENMT: external ear and nose normal, oropharynx normal Neck: trachea midline, no thyromegaly normal visual inspection Respiratory: normal respiratory effort, lungs clear to auscultation, no wheeze, rales, rhonchi. Normal insp/exp effort, no accessory muscle use Cardiovascular: RRR, 2/6 CESAR noted precordium, no edema Vessels: no JVD or carotid bruit Chest: aicd/pacer site on LACW, RACW cath, normal inspection of chest Abdomen: normal bowel sounds, soft, +distended, no fluid shift, nontender, Musculoskeletal: no cyanosis or clubbing, extremities motor strength 5/5 Skin: no rashes, warm and dry normal turgor Neurologic: PERRL, EOMI, accommodation nl, no face palsy, no dysarthria CN's II-XI intact bilaterally and moves all extremities Psychiatric: A+Ox3, euthymic affect Lymphatic: no cervical or axillary lymphadenopathy : deferred Results & Data Results & Data ([facility]) Vital Signs (Past 12 Hours) Vital Signs Temp Pulse Resp BP Pulse Ox 12/28/20 13:20 62 24 12/28/20 13:10 63 14 12/28/20 13:00 60 12 139/102 H 12/28/20 12:50 60 17 12/28/20 12:40 60 18 96 12/28/20 12:30 60 16 150/92 H 96 12/28/20 12:20 60 17 97 12/28/20 12:10 60 19 97 12/28/20 12:00 60 19 155/59 H 96 12/28/20 11:50 60 20 100 12/28/20 11:40 60 22 97 12/28/20 11:30 60 18 96 12/28/20 11:20 60 19 97 12/28/20 11:10 60 19 99 12/28/20 11:08 61 18 148/56 H 100 12/28/20 10:50 60 18 12/28/20 10:40 61 16 100 12/28/20 10:30 60 18 99 12/28/20 10:20 60 18 96 12/28/20 10:10 60 14 98 12/28/20 10:00 60 15 97 12/28/20 09:54 63 16 97 12/28/20 09:52 36.8 C 65 18 163/68 H 98 12/28/20 09:48 65 23 163/68 H [address] 12/28/20 10:34 CT SCAN OF THE BRAIN WITHOUT IV CONTRAST CLINICAL HISTORY: Strokelike symptoms. Left foot numbness. Left-sided visual changes. COMPARISON STUDY: CT of the brain dated 10/14/2017. TECHNIQUE: Unenhanced axial CT scan of the brain is performed from the vertex to the skull base. A dose lowering technique was utilized adhering to the principles of ALARA. FINDINGS: Brain parenchyma: There are age-related involutional changes noting moderate confluent subcortical and periventricular microangiopathic change. There is no hemorrhage, mass effect, or evidence of acute territorial ischemia by CT criteria. Cutler-white matter differentiation is preserved. No extra-axial fluid collection is seen. Mineralization is noted in the basal ganglia. Ventricles, sulci, cisterns: Prominent secondary to involutional change. Intracranial vasculature: There is atherosclerotic calcification of the cavernous carotid and vertebral arteries. Calvarium: Unremarkable. Sinuses and mastoids: The visualized paranasal sinuses are clear. There is trace right mastoid effusion. The left mastoid air cells are well pneumatized. Orbits: The bony orbits are grossly intact. There are bilateral ocular lens implants. IMPRESSION: There is no hemorrhage, mass effect, or evidence of acute territorial ischemia by CT criteria. ACT 112: Negative or not required by law. Electronically signed by: Colten Jacinto M.D. 12/28/2020 11:08 AM Head CTA 12/28/20 10:34 CT ANGIOGRAM OF THE BRAIN; CT ANGIOGRAM OF THE NECK CLINICAL HISTORY: Strokelike symptoms. Left foot numbness. Left-sided visual changes. COMPARISON STUDY: Unenhanced CT of the brain performed concurrently on 12/28/2020. TECHNIQUE: Following the IV administration of 120 of Optiray 320, CT angiogram of the head and neck was performed from the aortic arch to the vertex. Images are reviewed in the axial, sagittal, and coronal planes. 3-D MIPS images are created and assessed. IV contrast was administered without complication. All measurements were calculated based on NASCET criteria. A dose lowering technique was utilized adhering to the principles of ALARA. CT DOSE: 1017.63 mGy.cm FINDINGS: Brain parenchyma: There is age-related involutional change noting moderate subcortical and periventricular microangiopathic disease. There is no hemorrhage, mass effect, or evidence of acute territorial ischemia by CT criteria. There is no evidence of enhancing mass lesion on the angiogram phase images. The ventricles, sulci, and cisterns are prominent secondary to involutional change. Cutler-white matter differentiation is preserved. No extra- axial fluid collection is seen. Mineralization is noted in the basal ganglia. Thoracic aorta: There is advanced atherosclerotic calcification of the thoracic aorta. Visualized portions of the thoracic aorta are normal in caliber. The aortic arch demonstrates standard 3-vessel anatomy. Right carotid arterial system: The right common carotid artery is widely patent. Advanced atherosclerotic plaque causes approximately 50-60% focal stenosis at the origin of the right internal carotid artery. The mid to distal portions of the right internal carotid artery are widely patent. The right external carotid artery is clear. Left carotid arterial system: The left common carotid artery is widely patent. Advanced atherosclerotic plaque is seen in the carotid bulb. This causes less than 50% luminal narrowing at the origin of the left internal carotid artery. The mid to distal left internal carotid artery is widely patent, as is the left external carotid artery. Vertebral arteries: The vertebral arteries are widely patent bilaterally noting a left-sided dominance. Subclavian arteries: Widely patent bilaterally. Intracranial vasculature: There is atherosclerotic calcification of the cavernous carotid and vertebral arteries The internal carotid arteries are patent at the skull base, as are the anterior and middle cerebral arteries bilaterally. The vertebrobasilar system and posterior cerebral arteries are widely patent. The left vertebral artery is dominant. The intracranial right vertebral artery is diminutive. There is no aneurysm, high-grade stenosis, or focal vessel cut off seen throughout the intracranial circulation. Jugular veins: Patent bilaterally. A right internal jugular central venous catheter is in place. Dural sinuses: Patent. Lung apices: Partially visualized upper lobe lung parenchyma appears clear. Pacemaker leads are noted at the left thoracic inlet. Soft tissues: The visualized pharyngeal soft tissues are normal in appearance noting angiographic phase technique. The oropharyngeal airway appears widely patent. The salivary and thyroid glands are normal in appearance. No cervical lymphadenopathy is seen. Skeletal structures: The skeletal structures are osteopenic. The calvarium appears intact. The cervical spine is maintained noting multilevel spondylosis. No lytic or blastic lesion is seen. Sinuses and mastoids: The paranasal sinuses are clear. There is trace right mastoid effusion. The left mastoid air cells are well pneumatized. IMPRESSION: 1. There is no evidence of hemorrhage, mass effect, or evidence of acute territ orial ischemia noting angiographic phase technique. 2. Unremarkable CT angiogram of the brain. 3. Advanced atherosclerotic plaque causes 50-60% focal stenosis at the origin of the right internal carotid artery. 4. There is less than 50% focal stenosis at the origin of the left internal carotid artery. ACT 112: Negative or not required by law. Electronically signed by: Colten Jacinto M.D. 12/28/2020 11:28 AM Neck CTA 12/28/20 10:34 CT ANGIOGRAM OF THE BRAIN; CT ANGIOGRAM OF THE NECK CLINICAL HISTORY: Strokelike symptoms. Left foot numbness. Left-sided visual changes. COMPARISON STUDY: Unenhanced CT of the brain performed concurrently on 12/28/2020. TECHNIQUE: Following the IV administration of 120 of Optiray 320, CT angiogram of the head and neck was performed from the aortic arch to the vertex. Images are reviewed in the axial, sagittal, and coronal planes. 3-D MIPS images are created and assessed. IV contrast was administered without complication. All measurements were calculated based on NASCET criteria. A dose lowering technique was utilized adhering to the principles of ALARA. CT DOSE: 1017.63 mGy.cm FINDINGS: Brain parenchyma: There is age-related involutional change noting moderate subcortical and periventricular microangiopathic disease. There is no hemorrhage, mass effect, or evidence of acute territorial ischemia by CT criteria. There is no evidence of enhancing mass lesion on the angiogram phase images. The ventricles, sulci, and cisterns are prominent secondary to involutional change. Cutler-white matter differentiation is preserved. No extra- axial fluid collection is seen. Mineralization is noted in the basal ganglia. Thoracic aorta: There is advanced atherosclerotic calcification of the thoracic aorta. Visualized portions of the thoracic aorta are normal in caliber. The aortic arch demonstrates standard 3-vessel anatomy. Right carotid arterial system: The right common carotid artery is widely patent. Advanced atherosclerotic plaque causes approximately 50-60% focal stenosis at the origin of the right internal carotid artery. The mid to distal portions of the right internal carotid artery are widely patent. The right external carotid artery is clear. Left carotid arterial system: The left common carotid artery is widely patent. Advanced atherosclerotic plaque is seen in the carotid bulb. This causes less than 50% luminal narrowing at the origin of the left internal carotid artery. The mid to distal left internal carotid artery is widely patent, as is the left external carotid artery. Vertebral arteries: The vertebral arteries are widely patent bilaterally noting a left-sided dominance. Subclavian arteries: Widely patent bilaterally. Intracranial vasculature: There is atherosclerotic calcification of the cavernous carotid and vertebral arteries The internal carotid arteries are patent at the skull base, as are the anterior and middle cerebral arteries bilaterally. The vertebrobasilar system and posterior cerebral arteries are widely patent. The left vertebral artery is dominant. The intracranial right vertebral artery is diminutive. There is no aneurysm, high-grade stenosis, or focal vessel cut off seen throughout the intracranial circulation. Jugular veins: Patent bilaterally. A right internal jugular central venous catheter is in place. Dural sinuses: Patent. Lung apices: Partially visualized upper lobe lung parenchyma appears clear. Pacemaker leads are noted at the left thoracic inlet. Soft tissues: The visualized pharyngeal soft tissues are normal in appearance noting angiographic phase technique. The oropharyngeal airway appears widely patent. The salivary and thyroid glands are normal in appearance. No cervical lymphadenopathy is seen. Skeletal structures: The skeletal structures are osteopenic. The calvarium appears intact. The cervical spine is maintained noting multilevel spondylosis. No lytic or blastic lesion is seen. Sinuses and mastoids: The paranasal sinuses are clear. There is trace right mastoid effusion. The left mastoid air cells are well pneumatized. IMPRESSION: 1. There is no evidence of hemorrhage, mass effect, or evidence of acute territorial ischemia noting angiographic phase technique. 2. Unremarkable CT angiogram of the brain. 3. Advanced atherosclerotic plaque causes 50-60% focal stenosis at the origin of the right internal carotid artery. 4. There is less than 50% focal stenosis at the origin of the left internal carotid artery. ACT 112: Negative or not required by law. Electronically signed by: Colten Jacinto M.D. 12/28/2020 11:28 AM Medications Administered Medication List Discontinued Medications Ioversol (Optiray 320 125ml) 120 ml IV ONCE ONE Stop: 12/28/20 10:59 Last Admin: 12/28/20 10:58 Dose: 120 ml Documented by: [id number] ECG Rate (beats per minute): 63 Findings: + paced rhythm and + prolonged QT COVID-19 Results Results COVID-19 Adm Lab Results: RBC 3.44 M/uL (4.2-5.4) L 12/28/20 WBC 4.87 K/uL (4.8-10.8) 12/28/20 Hgb 11.3 g/dL (12.0-16.0) L 12/28/20 Hct 35.5 % (37-47) L 12/28/20 Plt Count 96 K/uL (130-400) L 12/28/20 Neutrophils (%) (Auto) 69.8 % 12/28/20 Lymphocytes (%) (Auto) 14.6 % 12/28/20 Monocytes # (Auto) 0.55 K/uL (0.11-0.59) 12/28/20 Eosinophils # (Auto) 0.16 K/uL (0-0.5) 12/28/20 Immature Granulocyte % (Auto) 0.6 % 12/28/20 Neutrophils # (Auto) 3.40 K/uL (1.4-6.5) 12/28/20 Lymphocytes # (Auto) 0.71 K/uL (1.2-3.4) L 12/28/20 Monocytes # (Auto) 0.55 K/uL (0.11-0.59) 12/28/20 Eosinophils # (Auto) 0.16 K/uL (0-0.5) 12/28/20 Basophils # (Auto) 0.02 K/uL (0-0.2) 12/28/20 Immature Granulocyte # (Auto) 0.03 K/uL (0.00-0.02) H 12/28/20 Macrocytosis Present 12/28/20 Ovalocytes 1+ 12/28/20 Na 137 mmol/L (136-145) 12/28/20 K 4.5 mmol/L (3.5-5.1) 12/28/20 Cl 102 mmol/L (98-107) 12/28/20 CO2 28 mmol/L (21-32) 12/28/20 Anion Gap 7.0 (3-11) 12/28/20 BUN 17 mg/dl (7-18) 12/28/20 Creatinine 2.99 mg/dl (0.6-1.2) H 12/28/20 BUN/Creatinine Ratio 5.8 (10-20) L 12/28/20 Glucose Level 113 mg/dl (70-99) H 12/28/20 Ca 9.9 mg/dl (8.5-10.1) 12/28/20 Total Bilirubin 0.8 mg/dl (0.2-1) 12/28/20 AST/SGOT 13 U/L (15-37) L 12/28/20 ALT/SGPT 11 U/L (12-78) L 12/28/20 Alkaline Phosphatase 105 U/L (45-117) 12/28/20 Total Protein 8.3 gm/dl (6.4-8.2) H 12/28/20 Albumin 3.9 gm/dl (3.4-5.0) 12/28/20 Globulin 4.4 gm/dl (2.5-4.0) H 12/28/20 Albumin/Globulin Ratio 0.9 (0.9-2) 12/28/20 Troponin I < 0.015 ng/ml (0-0.045) 12/28/20 CRP Pending 12/28/20 PTT 25.9 Seconds (21.0-31.0) 12/28/20 INR 1.1 (0.9-1.1) 12/28/20 COVID-19 PCR NEGATIVE (Negative) 12/28/20 Code Status & VTE Plan Code Status Full Code VTE Prophylaxis Plan VTE Prophylaxis will be ordered: Yes Reason for no VTE drug order: Contraindicated Supervising Physician Co-Signing Physician Notes I have seen and examined the patient and have discussed the case with the provider above. I agree with the assessment and plan as stated with the following exceptions. The patient is a 75 yo F with multiple medical problems who presents with transient monocular vision loss while undergoing hemodialysis. Her dialysis catheter is on the same side as her eye that was affected above. Later this evening she had another transient episode of vision change that returned to normal within a few minutes. She describes a residual frontal headache and some periocular pain on the left eye. She reports taking Tylenol daily for recurring headaches and denies any changes in headaches recently. She has no jaw claudication or other stroke like symptoms aside from a pins and needle feeling in her left foot that was transiently present and associated with the visual symptoms. She reports that although she doesn't currently feel the pins and needles, her left foot feels off. Proprioception of the LLE is intact, CN2-12 intact, PERRL, strength intact, sensation intact throughout, heart and lung exam was normal. No periocular redness, no pain wtih extraocular movements. No carotid bruits. Extremities are warm and well perfused. Differential diagnosis includes but not limited to migraine (positive phenomena with white dots marching across field during period of left eye vision loss, and she has a long history of headaches), thromboembolic event from carotid disease, arteriovenous occlusion (eg:CRAO), GCA (less likely with a lower ESR), glaucoma, orbital nerve demyelination. Patient cannot tolerate MRI 2/2 PM. Some carotid disease present on opposite side. Consults placed to ophthalmology and neurology for assistance with workup. Continue stroke protocol as above. Cont ASA 81mg daily per home regimen. Trend labs in am, monitor clinically on monitor. 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
[2020-12-28] MEDS ORDERED: GLUCOSE 40% GEL 15 GM TUBE PO PRN (13:49)
[2020-12-28] MEDS ORDERED: GLUCOSE 10 TABS/TUBE PO PRN (13:49)
[2020-12-28] MEDS ORDERED: CARBOHYDRATES FOR HYPOGLYCEMIA PO PRN (13:49)
[2020-12-28] MEDS ORDERED: ONDANSETRON INJ 2 MG/ML 2 ML VIAL IV PRN (13:49)
[2020-12-28] MEDS ORDERED: DEXTROSE 50% 50 ML SYRINGE IV PRN (13:49)
[2020-12-28] MEDS ORDERED: GLUCAGON FOR INJ 1 MG VIAL SQ PRN (13:49)
[2020-12-28] MEDS ORDERED: PHARMACIST DISCHARGE MED REC CONSULT PRN (13:49)
[2020-12-28] MEDS ORDERED: POLYETHYLENE (MIRALAX) 17 GM PACK PO PRN ×2 (13:49→13:58)
[2020-12-28] MEDS ORDERED: ACETAMINOPHEN 325 MG TAB PO PRN (13:49)
[2020-12-28] MEDS ORDERED: IPRATROPIUM BROMIDE/ALBUTEROL respimat INH INH PRN (13:58)
[2020-12-28] MEDS ORDERED: LORazepam 0.5 MG TAB PO PRN (13:58)
[2020-12-28] MEDS ORDERED: ALBUTEROL HFA 8 GM INHALER INH PRN (13:58)
[2020-12-28] MEDS ORDERED: Ipratropium HFA Inhaler (Combivent Respimat P&T Subs) INH PRN (14:29)
[2020-12-28] MEDS ORDERED: Albuterol HFA 8 GM Inhaler (Combivent Respimat P&T Subs) INH PRN (14:29)
--- NOTE | 2020-12-28 15:14 | Electrocardiogram Report ---
Test Reason : Blood Pressure : / mmHG Vent. Rate : 063 BPM Atrial Rate : 063 BPM P-R Int : 000 ms QRS Dur : 166 ms QT Int : 558 ms P-R-T Axes : 000 -74 110 degrees QTc Int : 571 ms AV dual-paced rhythm with frequent ventricular-paced complexes Biventricular pacemaker detected Abnormal ECG When compared with ECG of 14-MAY-2020 04:00, Vent. rate has decreased BY 10 BPM Confirmed by Dariel Marrufo ([id number]) on 12/28/2020 3:14:30 PM Referred By: REFERRED SELF Confirmed By:Roderick Marrufo
--- NOTE | 2020-12-28 15:30 | Neurology Consultation ---
Date of Consultation December 28, 2020 History of Present Illness Reason for Consultation: stroke like sx Requesting Physician: Cheryl Ricketts DO Attending Physician: Cheryl Ricketts DO Allergies Allergy/AdvReac Type Severity Reaction Status Date / Time adhesive Allergy Mild RXN TO Verified 12/28/20 12:19 ADHESIVE ON NITRO PATCH strawberry Allergy Unknown EDEMA OF Verified 12/28/20 12:19 FACE /LIPS /TONGUE amlodipine AdvReac Intermediate RETAIN Verified 12/28/20 12:19 FLUID DESIREE Inhibitors AdvReac Mild COUGH Verified 12/28/20 12:19 diphenhydramine AdvReac Mild VERY WEAK, Verified 12/28/20 12:19 CHF lisinopril AdvReac Mild COUGH Verified 12/28/20 12:19 nitroglycerin AdvReac Mild HEADACHE/NA Verified 12/28/20 12:19 USEA Sulfa (Sulfonamide AdvReac Mild "KNOCKS ME Verified 12/28/20 12:19 Antibiotics) OUT" Home Medications Medication Instructions Recorded Confirmed Type Gumarostan Louar U-100 Insulin 10 units SUBCUT PM 10/30/18 12/28/20 History amiodarone 200 mg PO QAM 10/30/18 12/28/20 History atorvastatin 40 mg PO HS 10/30/18 12/28/20 History carvedilol 50 mg PO BID 10/30/18 12/28/20 History torsemide 20 mg PO QAM 10/30/18 12/28/20 History hydralazine 50 mg PO TID 04/27/19 12/28/20 History lorazepam [Ativan] 0.5 mg PO DAILY PRN 04/27/19 12/28/20 History acetaminophen 1,000 mg PO Q6H PRN 09/03/19 12/28/20 History albuterol sulfate 2 puff INHALATION Q4 PRN 09/03/19 12/28/20 History docusate sodium 100 mg PO QAM 09/03/19 12/28/20 History lidocaine-prilocaine 1 applic TOPICAL UD 09/03/19 12/28/20 History polyethylene glycol 3350 [Miralax] 8.5 g PO DAILY PRN 09/03/19 12/28/20 History ondansetron HCl [Zofran] 4 mg PO Q8H PRN #20 tab 03/24/20 12/28/20 Rx Probiotic (B. coagulans) 0 cell PO DAILY 05/14/20 12/28/20 History calcium acetate(phosphat bind) 667 mg PO TIDM 05/14/20 12/28/20 History loratadine [Claritin] 10 mg PO Q OTHER DAY 05/14/20 12/28/20 History hydrocortisone [Proctosol HC] 1 applic EXT BID PRN #30 g 05/17/20 12/28/20 Rx aspirin [Aspir-81] 81 mg PO DAILY 12/28/20 12/28/20 History insulin aspart U-100 [Novolog 0 unit SUBCUT UD 12/28/20 12/28/20 History Flexpen U-100 Insulin] ipratropium-albuterol [Combivent 1 puff INHALATION Q4H PRN 12/28/20 12/28/20 History Respimat] omeprazole 20 mg PO DAILY 12/28/20 12/28/20 History Patient History Medical History (Updated 12/28/20 @ 13:44 by Gala Carvajal PA-C) Acute GI bleeding Anemia of renal disease Anxiety Biventricular ICD (implantable cardioverter-defibrillator) in place meditronic 01/2012 @ [facility] Cirrhosis Degenerative cervical disc Depression Diabetes mellitus, type II Endocarditis Pacemaker wire vegetation ESRD (end stage renal disease) on dialysis [id number] in [facility] in [place] GERD (gastroesophageal reflux disease) H/O TIA (transient ischemic attack) and stroke in --effected left side/balance Hearing deficit History of congestive heart failure History of recent blood transfusion 2 units PRBCS in May 2020 HTN (hypertension) Hx of supraventricular tachycardia Idiopathic cardiomyopathy Left bundle branch block (11/07/11) correction (current) use of 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 currently not taking any--taken off since GI bleed in May Osteoarthritis Paroxysmal atrial fibrillation Pericardial effusion Proteinuria PVD (peripheral vascular disease) Secondary hyperparathyroidism Seizure hx of from ages 11-40s--unknown cause--was on dilantin, no meds now, no neurologist Slow transit constipation Streptococcus bovis infection Bacteremia with pacemaker lead vegetation Thrombocytopenia Vascular dialysis catheter in place Surgical History H/O dilation and curettage History of appendectomy History of cataract surgery bilt History of colonoscopy with polypectomy History of esophagogastroduodenoscopy (EGD) History of hysterectomy History of left breast biopsy benign History of left hip hemiarthroplasty History of right breast biopsy benign History of wisdom tooth extraction S/P pericardial surgery Pericardial window for pericardial effusion Family History Brother Diabetes Mother Diabetes Coronary heart disease Sister Diabetes Uncle Family history of esophageal cancer Other No family history of adverse response to anesthesia Social History Smoking Status: Never smoker 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); Hx Alcohol Use: No Hx Substance Use: No Preferred Language: Brazilian Communication Ability: Effective Windows Administrator Required: No Beliefs That Will Affect Care: None marital status: / Current Living Situation: Family Current Living Situation Comment: cousin lives with patient How many Children do You have: 2 Feels Safe at Home: No Is there a partner from a previous relationship who is making you feel unsafe now?: No Assistive Devices: Denture - Upper, Glasses and Hearing Aid - Bilateral Results & Data ([facility]) Vital Signs (Past 12 Hours) Vital Signs Temp Pulse Resp BP Pulse Ox 12/28/20 13:20 62 24 12/28/20 13:10 63 14 12/28/20 13:00 60 12 139/102 H 12/28/20 12:50 60 17 12/28/20 12:40 60 18 96 12/28/20 12:30 60 16 150/92 H 96 12/28/20 12:20 60 17 97 12/28/20 12:10 60 19 97 12/28/20 12:00 60 19 155/59 H 96 12/28/20 11:50 60 20 100 12/28/20 11:40 60 22 97 12/28/20 11:30 60 18 96 12/28/20 11:20 60 19 97 12/28/20 11:10 60 19 99 12/28/20 11:08 61 18 148/56 H 100 12/28/20 10:50 60 18 12/28/20 10:40 61 16 100 12/28/20 10:30 60 18 99 06/17/21 10:20 60 18 96 12/28/20 10:10 60 14 98 12/28/20 10:00 60 15 97 12/28/20 09:54 63 16 97 12/28/20 09:52 36.8 C 65 18 163/68 H 98 12/28/20 09:48 65 23 163/68 H 97
[2020-12-28] MEDS: hydrALAZINE TAB 50 MG TAB PO SCH ×2 (15:32→20:33)
[2020-12-28] MEDS: CALCIUM ACETATE 667 MG CAP/TAB PO SCH (17:06)
[2020-12-28] MEDS: INSULIN ASPART 100 UNITS/ML 3 ML PEN SC SCH ×2 (17:07→20:35)
--- NOTE | 2020-12-28 19:04 | Ultrasound Report ---
ABDOMINAL ULTRASOUND, RIGHT UPPER QUADRANT HISTORY: ascites. COMPARISON: September 04, 2019. FINDINGS: Visualized portion of the liver shows no evidence of focal lesions or intrahepatic biliary dilatation . Ascites is seen within all focal quadrants of the abdomen.. IMPRESSION: Ascites is present. ACT 112: Negative or not required by law. The above report was generated using voice recognition software. It may contain grammatical, syntax o r spelling errors. Electronically signed by: Mihaela Byers DO 12/28/2020 7:03 PM
[2020-12-28] MEDS: carvediloL 25 MG TAB PO SCH (20:33)
[2020-12-28] MEDS ORDERED: INSULIN GLARGINE SOLOSTAR 100 UNITS/ML 3 ML PEN SC SCH (21:00)
[2020-12-28] MEDS ORDERED: ATORVASTATIN 40 MG TAB PO SCH (21:00)
--- NOTE | 2020-12-28 21:08 | Consultation Report ---
DATE OF CONSULTATION: 12/28/2020 CHIEF COMPLAINT: Left foot paresthesias, left visual disturbance. HISTORY OF PRESENT ILLNESS: This 75-year-old woman with multiple medical comorbidities including end-stage renal disease on dialysis, cardiomyopathy with reduced EF, status post ICD, history of ventricular tachycardia, as well as paroxysmal atrial fibrillation, not on anticoagulation due to GI bleeding as well as insulin-dependent diabetes and cirrhosis, admitted with brief left eye change in vision and left foot paresthesias. These symptoms occurred after dialysis was completed this morning in [place], [place]. Symptoms have currently resolved. She denies any prior history of symptoms. She states the vision in her left eye appeared green and then proceeded to look blurry. Her right eye vision was normal. She had no pain. Shortly afterwards, she noted some tingling in her left foot. Symptoms persisted, although resolved upon arrival. She was sent to the Emergency Department due to concern for possible amaurosis fugax versus a transient ischemic attack. Neurology was consulted upon admission. ALLERGIES: ADHESIVE TAPE, STRAWBERRY, AMLODIPINE, DESIREE INHIBITORS, DIPHENHYDRAMINE, LISINOPRIL, NITROGLYCERIN, SULFA. HOME MEDICATIONS: Lantus, amiodarone, atorvastatin, carvedilol, furosemide, hydralazine, Ativan, acetaminophen, albuterol, Colace, polyethylene glycol, Zofran, probiotic, Claritin, hydrocortisone, aspirin, omeprazole. PAST MEDICAL HISTORY: Paroxysmal atrial fibrillation, history of GI bleed, anemia, anxiety, ICD, cirrhosis, degenerative cervical disk disease, depression, type 2 diabetes, endocarditis, end-stage renal disease, gastroesophageal reflux, history of transient ischemic attack, congestive heart failure, hypertension, supraventricular tachycardia, idiopathic cardiomyopathy, proteinuria, peripheral vascular disease, remote history of seizures, thrombocytopenia. PAST SURGICAL HISTORY: D and C, appendectomy, cataracts, colonoscopy, EGD, hysterectomy, left breast biopsy, left hip arthroplasty, breast biopsy, wisdom teeth extraction, pericardial surgery. FAMILY HISTORY: Both the brother and sister had diabetes, her mother had diabetes and coronary artery disease. SOCIAL HISTORY: She is a nonsmoker. She is . There is no known illicit drug use. REVIEW OF SYSTEMS: All other review of systems was unremarkable except as noted above in the HPI. PHYSICAL EXAMINATION: VITAL SIGNS: Blood pressure 166/70, pulse of 66, respiratory rate is 18, temperature is 36.5 degrees Celsius, oxygen saturations 97% on room air. GENERAL: Patient appears chronically ill. She appears stated age, no distress. HEENT: Her head is normocephalic and atraumatic. Normal eyelids. NECK: Supple. LUNGS: Normal respiratory effort. CARDIAC: Pulses are normal. ABDOMEN: Nontender. SKIN: No skin rash, several bruises noted on her arm or ecchymosis. NEUROLOGIC: Normal Mood. She is awake, alert, oriented to person, place, and time. Her speech is clear. She is following simple commands. No aphasia, no dysarthria. Her extraocular muscles are intact. She blinks to threat. Visual roberson are full to confrontation. Face is symmetric. Tongue is midline. Hearing is intact. Palate is symmetric. Gait examination deferred. Coordination: She has no tremor, no ataxia with [id number] testing. Sensation is intact to light touch, although she has some extinction in the lower extremities. Muscle tone is normal. Muscle exam shows some proximal weakness in the left shoulder, which may be due to guarding due to pain. Reflexes showed no ankle clonus and a negative Morro sign. DIAGNOSTIC TESTING AND LABORATORY VALUES: WBC 4.87, hemoglobin 11.3, platelet count 96. Sodium was 137, potassium 4.5, chloride 102, carbon dioxide 28, BUN is 17, creatinine 2.99. Magnesium is 2.4, AST is 13, ALT is 11. Head CT noncontrast. Age-related involutional changes, noting moderate confluent subcortical and periventricular microangiopathic changes. No hemorrhage, mass effect or evidence of acute territorial ischemia. Cutler white matter is preserved. Head and neck CTA showed no evidence of hemorrhage, mass effect or evidence of acute territorial ischemia. Unremarkable CT angiogram of the brain advanced atherosclerotic plaque causes 50-60% focal stenosis at the origin of the right internal carotid artery. There is less than 50% focal stenosis at the origin of the left internal carotid artery. IMPRESSION: A 75-year-old woman with multiple medical comorbidities including end-stage renal disease, paroxysmal atrial fibrillation, not on anticoagulation and insulin-dependent diabetes, admitted with a brief episode of left eye visual disturbance and left foot paresthesias. Overall, clinical symptoms in conjunction are hard to localize to one vascular territory. Left eye visual disturbance suggestive of a possible amaurosis fugax, although somewhat atypical. CT of the neck shows no high-grade stenosis of the left internal carotid artery. I would agree with continuing medical management including aspirin 81 mg daily and high-intensity statin, Lipitor 40 mg daily. I would not recommend dual antiplatelet given the patient's history of GI bleeding as well as her thrombocytopenia. Agree with repeat CT head noncontrast tomorrow morning. Otherwise, I would recommend a normalization of her blood pressures with systolic blood pressure less than 140, diastolic blood pressure less than 90. I would recommend checking a hemoglobin A1c, lipid panel, and TSH. I would also recommend obtaining a transthoracic echocardiogram. It has been quite some time since she has had a repeat. Otherwise, Neurology will continue to follow. Job ID: [id number] ISSA
--- NOTE | 2020-12-29 08:18 | CT Scan Report ---
CT head/brain wo con CLINICAL HISTORY: repeat to eval for tia/cva COMPARISON STUDY: December 28, 2020 TECHNIQUE: Axial CT of the brain is performed from the vertex to the skull base. IV contrast was not administered for this examination. A dose lowering technique was utilized adhering to the principles of ALARA. CT DOSE: 537.48 mGy.cm FINDINGS: No acute intracranial hemorrhage, no midline shift or space occupying lesions. Interval increase in attenuation within the dural sinuses as well as mild opacification of the distal carotid arteries and its branches likely due to incompletely excreted intravenous contrast that was used for recent CT angiography of the neck. Cutler-white matter differentiation is preserved. Calcifications within bilateral basal ganglia and lef t cerebellar lobe are again seen. There are patchy white matter hypodensities likely on a small vessel basis. There is no evidence of pathologic ventricular dilatation. There is no acute depressed skull fracture seen. Visualized paranasal sinuses and mastoid air cells a re patent and well-aerated. IMPRESSION: No acute intracranial hemorrhage, no midline shift or space occupying lesions. Opacification of arterial and venous system is likely due to incompletely excreted intravenous contra st which was useful recent CT angiography. ACT 112: Negative or not required by law. The above report was generated using voice recognition software. It may contain grammatical, syntax o r spelling errors. Electronically signed by: Mihaela Byers DO 12/29/2020 8:17 AM
[2020-12-29] MEDS: INSULIN ASPART 100 UNITS/ML 3 ML PEN SC SCH ×3 (08:25→17:21)
[2020-12-29] MEDS: CALCIUM ACETATE 667 MG CAP/TAB PO SCH ×3 (08:37→17:22)
[2020-12-29 08:41] LABS: Hematocrit (blood only) 31.2 % (37-47); Hemoglobin 9.8 g/dL (12.0-16.0); Mean Corpuscular Hemoglobin 32.5 pg (25-34); Mean Corpuscular Hgb Conc 31.4 g/dL (32-36); Mean Corpuscular Volume 103.3 fL (80-100); RDW Coefficient of Variation 15.7 % (11.5-14.5); RDW Standard Deviation 59.8 fL (36.4-46.3); Red Blood Count 3.02 M/uL (4.2-5.4); White Blood Count 5.18 K/uL (4.8-10.8)
[2020-12-29 08:58] LABS: Estimated Average Glucose 160 mg/dl; Hemoglobin A1C 7.2 % (4.5-5.6)
[2020-12-29] MEDS ORDERED: AMIODARONE 200 MG TAB PO SCH (09:00)
[2020-12-29] MEDS ORDERED: LORATADINE 10 MG TAB PO SCH (09:00)
[2020-12-29] MEDS ORDERED: DOCUSATE SODIUM 100 MG CAP PO SCH (09:00)
[2020-12-29] MEDS ORDERED: PANTOprazole 40 MG TAB PO SCH (09:00)
[2020-12-29] MEDS ORDERED: ADVANCED PROBIOTIC 1250 MG CAPSULE PO SCH (09:00)
[2020-12-29] MEDS ORDERED: TORSEMIDE 20 MG TAB PO SCH (09:00)
[2020-12-29] MEDS ORDERED: ASPIRIN 81 MG ECTAB PO SCH (09:00)
[2020-12-29 09:29] LABS: Basophils # (auto) 0.01 K/uL (0-0.2); Basophils % (auto) 0.2 %; Eosinophils # (auto) 0.16 K/uL (0-0.5); Eosinophils % (auto) 3.1 %; Immature Granulocytes # (auto) 0.02 K/uL (0.00-0.02); Immature Granulocytes % (auto) 0.4 %; Lymphocytes # (auto) 0.65 K/uL (1.2-3.4); Lymphocytes % (auto) 12.5 %; Mean Platelet Volume 10.7 fL (7.4-10.4); Monocytes # (auto) 0.66 K/uL (0.11-0.59); Monocytes % (auto) 12.7 %; Neutrophils # (auto) 3.68 K/uL (1.4-6.5); Neutrophils % (auto) 71.1 %; Platelet Count 89 K/uL (130-400); RBC Morphology Unremarkable
[2020-12-29 09:39] LABS: Calcium 9.2 mg/dl (8.5-10.1); Creatinine Clr Calc Pharmacy 9.3 ml/min; Est GFR (African American) 9.8 ml/min; Est GFR (Non-African American) 8.5 ml/min; Potassium 5.3 mmol/L (3.5-5.1)
[2020-12-29] MEDS: carvediloL 25 MG TAB PO SCH (09:53)
[2020-12-29] MEDS: hydrALAZINE TAB 50 MG TAB PO SCH ×2 (09:54→15:25)
[2020-12-29 10:27] LABS: Appearance Peritoneal Fluid CLEAR; Color Peritoneal Fluid YELLOW; RBC Peritoneal Fluid (A) < 3000 /uL; WBC Peritoneal Fluid (A) 343 /ul (0-300)
[2020-12-29 10:39] LABS: Albumin Peritoneal Fluid 2.5 g/dl; Total Protein Peritoneal Fluid 4.5 g/dl
--- NOTE | 2020-12-29 10:55 | Ultrasound Report ---
PARACENTESIS UNDER ULTRASOUND GUIDANCE CLINICAL HISTORY: Distention. Abdominal ascites. COMPARISON STUDY: Abdominal ultrasound dated 12/28/2020. PROCEDURE: The risks, benefits, and alternatives to the procedure were discussed with the patient who voiced understanding. Written informed consent was obtained. Following real-time ultrasound localiza tion of a suitable pocket of fluid in the left lower quadrant, the abdomen was prepped and draped in the usual sterile fashion. The skin and soft tissues were anesthetized with 1% lidocaine. The sheathe d paracentesis needle was inserted and approximately 5 liters of straw-colored ascitic fluid was ian nenita by vacuum suction. A sample sent for laboratory analysis. The procedure was well tolerated and wi thout immediate complication. The patient left the department in satisfactory condition. IMPRESSION: Successful ultrasound-guided paracentesis with removal of approximately 5 liters of ascit ic fluid. ACT 112: Negative or not required by law. Electronically signed by: Colten Jacinto M.D. 12/29/2020 10:54 AM
[2020-12-29] MEDS ORDERED: PATIROMER CALCIUM SORBITEX 8.4 GM PACK PO SCH (11:00)
[2020-12-29 11:12] LABS: Basophils, Fluid 0 %; Eosinophils, Fluid 1 %; Lymphocytes, Fluid 80 %; Mono,Macrophage,Mesothelial 12 %; Neutrophils, Fluid 7 %
--- NOTE | 2020-12-29 11:22 | Hospitalist Progress Note ---
Date of Service December 29, 2020 Assessment & Plan (1) Transient visual disturbance, left: Transient visual loss yesterday during hemodialysis. She did have 1 very short episode last night that was less than 5 minutes and has had a return of her vision to normal. Positive phenomena with was noted. She is also had a sensation of [id number] in her left foot that has persisted overnight which would be inconsistent with amaurosis fugax secondary to GCA. Also ESR is low. No prednisone or push for temporal artery biopsy at this time. Additional considerations include but not limited to complicated migraine, TIA, other vascular phenomena. Appreciate neurology recommendations. Of note she did have a repeat CT scan this morning of her head revealing no acute intracranial hemorrhage midline shift or space-occupying lesions. Per ophthalmology discussion, she will follow up with their clinic for formal slit-lamp examination on Friday of next week. (2) Ascites: Known history of cirrhosis with paracentesis in the past. Per patient she states that she has had a few months of persistent abdominal pain with swelling. Last paracentesis was performed last fall. Scheduled for diagnostic/therapeutic paracentesis this morning with radiology. Lab work pending. (3) End-stage renal disease (ESRD): Hemodialysis Friday//Friday Full treatment [employer], 2.5 L removed Consult nephrology for dialysis needs Continue PhosLo, fluid restriction, daily weights ESRD may limit her ability to use the typical diuretic regimen prescribed for ascites management. Will discuss with nephrology. (4) Diabetes mellitus, type II: Controlled per last A1c which was 6.6 in November 2020. Continue Lantus and NovoLog per inpatient protocol. Inpatient glucose at goal. (5) Idiopathic cardiomyopathy: She appears compensated, History of idiopathic cardiomyopathy with NYHA class III systolic CHF status post biventricular ICD implantation with previously reduced ejection fraction Most recent echo 03/20/2020 EF 50 to 55%, septal motion dyskinetic likely to due to RV pacemaker activation, RV mildly dilated, RV systolic ultimately reduced, severe TR, mild pulmonary hypertension Daily weights, strict I's and O's Hemodialysis for volume management Continue ASA, statin, Coreg, hydralazine, torsemide (6) Paroxysmal atrial fibrillation: On amiodarone and Coreg Also on amiodarone secondary to history of V. tach, pacemaker/AICD in place Off anticoagulation secondary to thrombocytopenia and GI bleeding Interrogate pacer to eval for A. fib (7) Anemia in ESRD (end-stage renal disease): Hemoglobin and hematocrit is stable, continue to monitor periodically. 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 There is no evidence of overt bleeding. (9) DVT prophylaxis: Heparin Full code Disposition-home today pending neurologic recommendations. DO María Elena Rocha Hospitalist Admission and Anticipated Discharge Date Admission Date: December 28, 2020 Subjective 75-year-old female presented from dialysis yesterday with transient monocular vision loss and numbness and tingling in her left foot. She reports numbness and tingling in both feet overnight that was transient but no further issues with visual loss outside of an 5-minute episode while watching television last evening. I did speak with Dr. Guerra, ophthalmology, and we reviewed her current work-up. As her vision is back to baseline, he is comfortable with seeing her as outpatient. Funduscopic exam was performed this morning but was difficult secondary to pupillary constriction. Review of Systems Review of Systems: All systems reviewed & are unremarkable except as noted in Subjective Physical Exam Physical Exam: CONSTITUTIONAL: WNWD, vitals as above, generally well- appearing EYES: normal conjunctivae, no scleral icterus, no fundoscopic abnormality ENT: external ear and nose normal, oropharynx clear,MMM RESPIRATORY: clear to auscultation bilaterally, no crackles, rales or wheezes, normal respiratory effort CARDIOVASCULAR: regular rate and rhythm, S1 and 2 heard without murmurs, gallops or rubs, no peripheral edema, extremities are WWP. GASTROINTESTINAL: soft, nontender, slightly distended, +fluid wave MUSCULOSKELETAL: strength 5/5 throughout, head is normocephalic and atraumatic SKIN: warm and dry, HD catheter in LUE, palpable thrill. NEUROLOGIC: CN 2-12 grossly intact, vision reportedly intact, no sensory deficit, normal cognition, normal speech, no tremor, no gross focal deficits. PSYCHIATRIC: alert cooperative and oriented to person, place and time. Results & Data Results & Data ([facility]) Vital Signs (Past 12 Hours) Vital Signs Temp Pulse Pulse Resp BP BP Pulse Ox 12/29/20 11:00 36.5 C 62 16 133/72 96 12/29/20 10:03 60 12/29/20 09:57 37 C 64 18 164/66 H 95 12/29/20 08:13 36.5 C 64 16 147/68 H 95 12/29/20 03:50 37.0 C 60 18 132/64 97 12/28/20 23:25 60 Laboratory Results Short CBC 12/28/20 12/29/20 Range/Units 10:35 07:34 WBC 5.18 (4.8-10.8) K/uL Hgb 9.8 L (12.0-16.0) g/dL Hct 31.2 L (37-47) % Plt Count 96 L 89 L (130-400) K/uL BMP 12/28/20 12/29/20 10:35 07:34 Sodium 137 136 Potassium 4.5 5.3 H D Chloride 102 100 Carbon Dioxide 28 30 BUN 17 33 H D Creatinine 2.99 H 4.70 H* D Glucose 113 H 100 H Calcium 9.9 9.2 Cardiac Enzymes 12/28/20 Range/Units 10:35 Troponin I < 0.015 (0-0.045) ng/ml Liver Function 12/28/20 Range/Units 10:35 Total Bilirubin 0.8 (0.2-1) mg/dl AST 13 L (15-37) U/L ALT 11 L (12-78) U/L Alkaline Phosphatase 105 (45-117) U/L Albumin 3.9 (3.4-5.0) gm/dl Medications Administered Current Inpatient Medications Acetaminophen (Acetaminophen 325 Mg Tab) 650 mg PO Q4H PRN PRN Reason: Pain or Fever Stop: 01/27/21 13:48 Albuterol (Albuterol Hfa 8 Gm Inhaler (Combivent Respimat P&T Subs)) 1 puffs INH Q4H PRN PRN Reason: SOB/WHEEZING Stop: 01/27/21 14:28 Amiodarone HCl (Amiodarone 200 Mg Tab) 200 mg PO QAM [facility] Stop: 01/28/21 08:59 Last Admin: 12/29/20 08:28 Dose: 200 mg Documented by: Aspirin (Aspirin 81 Mg Ectab) 81 mg PO DAILY DANY Stop: 01/28/21 08:59 Last Admin: 12/29/20 08:28 Dose: 81 mg Documented by: Atorvastatin Calcium (Atorvastatin 40 Mg Tab) 40 mg PO HS [facility] Stop: 01/27/21 20:59 Last Admin: 12/28/20 20:33 Dose: 40 mg Documented by: Calcium Acetate (Calcium Acetate 667 Mg Cap/Tab) 667 mg PO TIDM [facility] Stop: 01/27/21 16:59 Last Admin: 12/29/20 08:37 Dose: 667 mg Documented by: Carvedilol (Carvedilol 25 Mg Tab) 50 mg PO BID DANY Stop: 01/27/21 20:59 Last Admin: 12/29/20 09:53 Dose: 50 mg Documented by: Dextrose (Dextrose 50% 50 Ml Syringe) 25 - 50 ml IV UD PRN; Protocol PRN Reason: Hypoglycemia Protocol Stop: 01/27/21 13:48 Docusate Sodium (Docusate Sodium 100 Mg Cap) 100 mg PO QAM [facility] Stop: 01/28/21 08:59 Last Admin: 12/29/20 08:27 Dose: 100 mg Documented by: Glucagon (Glucagon For Inj 1 Mg Vial) 1 mg SQ UD PRN; Protocol PRN Reason: Hypoglycemia Protocol Stop: 01/27/21 13:48 Glucose (Glucose 10 Tabs/Tube) 4 - 8 tabs PO UD PRN; Protocol PRN Reason: Hypoglycemia Protocol Stop: 01/27/21 13:48 Glucose (Glucose 40% Gel 15 Gm Tube) 15 - 30 gm PO UD PRN; Protocol PRN Reason: Hypoglycemia Protocol Stop: 01/27/21 13:48 Hydralazine HCl (Hydralazine Tab 50 Mg Tab) 50 mg PO TID [facility] Stop: 01/27/21 13:59 Last Admin: 12/29/20 09:54 Dose: 50 mg Documented by: Insulin Aspart (Insulin Aspart 100 Units/Ml 3 Ml Pen) 0 units SC ACHS [facility] Stop: 01/27/21 16:29 Last Admin: 12/29/20 08:25 Dose: Not Given Documented by: Insulin Glargine (Insulin Glargine Solostar 100 Units/Ml 3 Ml Pen) 0 units SC HS [facility] Stop: 01/27/21 20:59 Last Admin: 12/28/20 20:34 Dose: 10 units Documented by: Ipratropium [place] (Ipratropium Hfa Inhaler (Combivent Respimat P&T Subs)) 1 puffs INH Q4H PRN PRN Reason: SOB/WHEEZING Stop: 01/27/21 14:28 Lactobacillus Acidoph/Casei/Rhamnos (Advanced Probiotic 1250 Mg Capsule) 2 cap PO DAILY DANY Stop: 01/28/21 08:59 Last Admin: 12/29/20 08:28 Dose: 2 cap Documented by: Loratadine (Loratadine 10 Mg Tab) 10 mg PO Q2D DANY Stop: 01/28/21 08:59 Last Admin: 12/29/20 09:53 Dose: 10 mg Documented by: Lorazepam (Lorazepam 0.5 Mg Tab) 0.5 mg PO DAILY PRN PRN Reason: Anxiety Stop: 01/27/21 13:57 Miscellaneous (Carbohydrates For Hypoglycemia ) 15 - 30 gm PO UD PRN PRN Reason: Hypoglycemia Protocol Stop: 01/27/21 13:48 Miscellaneous Information (Pharmacist Discharge Med Rec Consult) 1 ea N/A UD PRN PRN Reason: Consult Stop: 01/27/21 13:48 Ondansetron HCl (Ondansetron Inj 2 Mg/Ml 2 Ml Vial) 4 mg IV Q6H PRN PRN Reason: Nausea Stop: 01/27/21 13:48 Pantoprazole Sodium (Pantoprazole 40 Mg Tab) 40 mg PO DAILY DANY Stop: 01/28/21 08:59 Last Admin: 12/29/20 08:28 Dose: 40 mg Documented by: Patiromer (Patiromer Calcium Sorbitex 8.4 Gm Pack) 8.4 gm PO DAILY [facility] Stop: 01/28/21 10:59 Polyethylene Glycol (Polyethylene (Miralax) 17 Gm Pack) 8.5 gm PO DAILY PRN PRN Reason: Constipation Stop: 01/27/21 13:57 Torsemide (Torsemide 20 Mg Tab) 20 mg PO QAM [facility] Stop: 01/28/21 08:59 Last Admin: 12/29/20 09:54 Dose: 20 mg Documented by: (1) Diabetes mellitus, type II Diabetes mellitus shelter insulin use: 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
--- NOTE | 2020-12-29 11:33 | Consultation Report ---
DATE OF ADMISSION: 12/28/2020. REASON FOR CONSULT: Dialysis patient admitted with stroke-like symptoms. HISTORY OF PRESENT ILLNESS: The patient is a 75-year-old female on chronic hemodialysis Friday, , Friday. Yesterday while getting dialysis towards the very end, she started having some stroke-like symptoms related with some blurry vision and abnormal facial appearance. She was sent to the Emergency Department to rule out stroke. She has already had appropriate imaging as well as Neurology evaluation. Patient's symptoms seem to have subsided already. Her vital signs are reasonable. She has not reported any major problem with her dialysis lately. ALLERGIES: List was reviewed in detail and is as per the reconciliation list. HOME MEDICATION: List was also reviewed as per reconciliation list. 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 FAMILY HISTORY: Negative for renal disease or dialysis. SOCIAL HISTORY: The patient never smoked. No alcohol. She is a . She is currently living with her family. She uses walker at home for ambulation. REVIEW OF SYSTEMS: As detailed in HPI and listed, otherwise 12 systems reviewed and negative prior to the acute stroke-like symptoms during dialysis, she was otherwise at stable health and denied having any nausea, vomiting, chest pain, shortness of breath, orthopnea, PND, lower extremity edema, headache, focal weakness or numbness. PHYSICAL EXAMINATION: GENERAL: Elderly white female who does not appear to be in any respiratory or otherwise distress. She is awake, alert, oriented and was able to give me a detailed account of her medical problem. VITAL SIGNS: Blood pressure 164/66, pulse rate 60, temperature 37 degrees Celsius, 95% on room air. HEENT: Mucous membranes moist. NECK: Supple. No jugular venous distention. CHEST: Bilateral clear to auscultation. CARDIOVASCULAR: S1, S2 regular. ABDOMEN: Soft, nontender. EXTREMITIES: Shows trace edema. SKIN: Shows signs of chronic venous stasis in her leg. LABORATORY DATA: Sodium 136, potassium 5.3, BUN 33, creatinine 4.7, hemoglobin 9.8, WBC count 5.18, platelet count 89,000. Abdominal ultrasound right upper quadrant showed ascites present. ASSESSMENT AND PLAN: A 75-year-old female with endstage renal disease and extensive cardiopulmonary as well as multiple medical problems, admitted with stroke-like symptoms. I have been consulted for dialysis management. 1. Endstage renal disease. She had full dialysis yesterday without any major problem up until the end when she had the stroke-like symptoms. Her next dialysis will be tomorrow either as an inpatient if she is still in the hospital or as an outpatient if she gets discharged. Potassium is very slightly high. I would give a dose of patiromer just to avoid having potassium of more than 6 tomorrow morning. She does not appear to be in any fluid overload. Other electrolytes are reasonable. 2. Stroke-like symptoms, already being addressed by primary team with appropriate imaging as well as Neurology consult. No major change in the management as per Neurology note. Job ID: [id number] [facility]
--- NOTE | 2020-12-29 17:02 | Progress Notes ---
DATE OF SERVICE: 12/29/2020 I am seeing Mrs. Villar in followup of an episode of impaired vision in the left eye that occurred yesterday during dialysis and then later in the day. CTA of the head and neck shows a 50%-60% steno sis at the origin of the right internal carotid and less than 50% stenosis at the origin of the left internal carotid. Her echo did not show any clot. The patient has a history of known atrial fibrill ation, but my understanding is she is not on other 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 due to bleeding issues and thromboc ytopenia. Her sed rate was 37. Last evening, apparently she had some blurred vision as well in the left eye, there may have been some squiggles in that eye as well. There has not been eye pain. Inte rmittently during dialysis, she has some mild frontal headaches. She does not have any history of cl assic migraine. With the initial episode during dialysis, she noted tingling in her left foot; howev er, she had tingling in both feet the day before. I presume she has diabetic neuropathy. PHYSICAL EXAMINATION: While there maybe some frontal tenderness, it is diffuse. There is good tempo ral artery pulsations and the temporal arteries are not tender. Her pupils are equal. I had difficu lty visualizing the optic nerves. Le were full. Motility normal. Normal facial symmetry. Symm etric strength in the upper and lowers. Absent ankle jerks, downgoing toes. Lower third of the calf level to temperature. Present vibration in both toes, although a little less in the left great toe t ware right. IMPRESSION AND PLAN: 1. Impaired vision in the left eye of unclear etiology. She describes this as affecting all of visi on, so it should not be related to the moderate right internal carotid stenosis. I do not see any co nvincing evidence of temporal arteritis. While there could have been transient ischemia, it is diffi cult to prove and Dr. Turcios pointed out that she is on antiplatelet therapy with multiple contraind ications for anticoagulation or further antiplatelet therapy. I would recommend that she see ophthal mology to make sure there is not a retinal/macular reason for her symptoms. Agree with ongoing risk factor modification. 2. The patient appears to have a diabetic neuropathy. I have no objection for the patient being dis charged from a neurologic perspective. 3. The patient should have a followup carotid ultrasound in 6 months and if stable, yearly thereafte r with referral to vascular surgery if the degree of stenosis is greater than 70%. We will sign off at present. Job ID: [id number]
--- NOTE | 2020-12-29 19:20 | Discharge Summary ---
Date of Service December 29, 2020 Admission HPI Per Admitting Provider This is a 75-year-old female who has significant past medical history of ESRD on HD T//Fri, idiopathic cardiomyopathy with history of reduced EF now normalized status post biventricular ICD implantation, history of V. tach status post AICD, PAF off anticoagulation secondary to GI bleeding issues, T2DM insulin-dependent, cirrhosis of liver with ascites, thrombocytopenia, anemia of chronic disease, history of endocarditis, secondary hyperparathyroidism, HTN, HLD, history of remote CVA in who presents to ED secondary left eye visual changes x45 minutes. She was completing her dialysis treatment this morning and was seeing Dr. Teran when she complained of left eye being blurry. Described as "eye underwater." She denies theodora loss of vision, eye pain or tearing. She feels the lady she was looking at looked, "mint green." She feels the blurriness lasted approximately 45 minutes. She has never experienced this in the past and does not routinely see an eye doctor. She did have a mild frontal headache when symptoms occurred. She also had left midfoot tingling associated with visual change. She denied any slurred speech, difficulty swallowing, facial droop. Symptoms were witnessed by Dr. Teran and she referred her to ED. She denies any recent illness, fever, chills, sweats, lightheadedness, dizziness, syncope, change in hearing, chest pain, shortness breath at rest, URI symptoms, cough, nausea, vomiting, abdominal pain. She does admit to abdominal bloating and feels her abdomen has been more distended for the last several months. She denies any melena or hematochezia. Her last BM was 2 days ago. She is mostly anuric. She is off anticoagulation due to history of GI bleeding. She currently lives with her cousin. Symptoms resolved patient arrived at ED. She remained hemodynamically stable and mildly hypertensive. Lab work notable for H&H 11.3 and 35.5, platelet 96, creatinine 2.99. Head and neck CTA revealed advanced atherosclerotic plaque with 50 to 60% focal stenosis at the origin of the right internal carotid artery and less than 50% focal stenosis at the origin of the left internal carotid artery. She does have an AICD in place that is not MRI compatible. Admission Exam Per Admitting Provider Constitutional: WD/WN, F, vitals as above, NAD, sitting up in bed, pleasant, conversing easily Head: Normocephalic, Atraumatic Eyes: PERRL, conjunctivae normal, anicteric sclerae, visual roberson in tact, no eye redness, PEERLA, no nystagmus ENMT: external ear and nose normal, oropharynx normal Neck: trachea midline, no thyromegaly normal visual inspection Respiratory: normal respiratory effort, lungs clear to auscultation, no wheeze, rales, rhonchi. Normal insp/exp effort, no accessory muscle use Cardiovascular: RRR, 2/6 CESAR noted precordium, no edema Vessels: no JVD or carotid bruit Chest: aicd/pacer site on LACW, RACW cath, normal inspection of chest Abdomen: normal bowel sounds, soft, +distended, no fluid shift, nontender, Musculoskeletal: no cyanosis or clubbing, extremities motor strength 5/5 Skin: no rashes, warm and dry normal turgor Neurologic: PERRL, EOMI, accommodation nl, no face palsy, no dysarthria CN's II-XI intact bilaterally and moves all extremities Psychiatric: A+Ox3, euthymic affect Lymphatic: no cervical or axillary lymphadenopathy : deferred Principal Diagnosis Transient monocular vision loss of the left eye-resolved, unclear etiology Peripheral arterial disease ESRD, on hemodialysis Discharge Exam CONSTITUTIONAL: WNWD, vitals as above, generally well-appearing EYES: normal conjunctivae, no scleral icterus, no fundoscopic abnormality ENT: external ear and nose normal, oropharynx clear,MMM RESPIRATORY: clear to auscultation bilaterally, no crackles, rales or wheezes, normal respiratory effort CARDIOVASCULAR: regular rate and rhythm, S1 and 2 heard without murmurs, gallops or rubs, no peripheral edema, extremities are WWP. GASTROINTESTINAL: soft, nontender, slightly distended, +fluid wave MUSCULOSKELETAL: strength 5/5 throughout, head is normocephalic and atraumatic SKIN: warm and dry, HD catheter in LUE, palpable thrill. NEUROLOGIC: CN 2-12 grossly intact, vision reportedly intact, no sensory deficit, normal cognition, normal speech, no tremor, no gross focal deficits. PSYCHIATRIC: alert cooperative and oriented to person, place and time. Discharge Data Allergies Allergy/AdvReac Type Severity Reaction Status Date / Time adhesive Allergy Mild RXN TO Verified 12/28/20 12:19 ADHESIVE ON NITRO PATCH strawberry Allergy Unknown EDEMA OF Verified 12/28/20 12:19 FACE /LIPS /TONGUE amlodipine AdvReac Intermediate RETAIN Verified 12/28/20 12:19 FLUID DESIREE Inhibitors AdvReac Mild COUGH Verified 12/28/20 12:19 diphenhydramine AdvReac Mild VERY WEAK, Verified 12/28/20 12:19 CHF lisinopril AdvReac Mild COUGH Verified 12/28/20 12:19 nitroglycerin AdvReac Mild HEADACHE/NA Verified 12/28/20 12:19 USEA Sulfa (Sulfonamide AdvReac Mild "KNOCKS ME Verified 12/28/20 12:19 Antibiotics) OUT" Consultations 12/28/20 12:42 Consult Neurology Routine 12/28/20 13:49 Consult Nephrology Routine 12/28/20 21:01 Consult Ophthalmology Routine Ordered Studies Laboratory Results WBC 5.18 K/uL (4.8-10.8) 12/29/20 07:34 RBC 3.02 M/uL (4.2-5.4) L 12/29/20 07:34 Hgb 9.8 g/dL (12.0-16.0) L 12/29/20 07:34 Hct 31.2 % (37-47) L 12/29/20 07:34 MCV 103.3 fL (80-100) H 12/29/20 07:34 MCH 32.5 pg (25-34) 12/29/20 07:34 MCHC 31.4 g/dL (32-36) L 12/29/20 07:34 RDW Std Deviation 59.8 fL (36.4-46.3) H 12/29/20 07:34 RDW Coeff of Jacobo 15.7 % (11.5-14.5) H 12/29/20 07:34 Plt Count 89 K/uL (130-400) L 12/29/20 07:34 MPV 10.7 fL (7.4-10.4) H 12/29/20 07:34 Immature Gran % (Auto) 0.4 % 12/29/20 07:34 Neut % (Auto) 71.1 % 12/29/20 07:34 Lymph % (Auto) 12.5 % 12/29/20 07:34 Dolores % (Auto) 12.7 % 12/29/20 07:34 Eos % (Auto) 3.1 % 12/29/20 07:34 Baso % (Auto) 0.2 % 12/29/20 07:34 Neut # (Auto) 3.68 K/uL (1.4-6.5) 12/29/20 07:34 Lymph # (Auto) 0.65 K/uL (1.2-3.4) L 12/29/20 07:34 Dolores # (Auto) 0.66 K/uL (0.11-0.59) H 12/29/20 07:34 Eos # (Auto) 0.16 K/uL (0-0.5) 12/29/20 07:34 Baso # (Auto) 0.01 K/uL (0-0.2) 12/29/20 07:34 Immature Gran # (Auto) 0.02 K/uL (0.00-0.02) 12/29/20 07:34 RBC Morphology Unremarkable 12/29/20 07:34 Macrocytosis Present 12/28/20 10:35 Ovalocytes 1+ 12/28/20 10:35 ESR 37 mm/hr (0-30) H 12/28/20 10:35 PT 11.2 Seconds (9.0-12.0) 12/28/20 10:35 INR 1.1 (0.9-1.1) 12/28/20 10:35 APTT 25.9 Seconds (21.0-31.0) 12/28/20 10:35 PTT Ratio 1.0 12/28/20 10:35 Sodium 136 mmol/L (136-145) 12/29/20 07:34 Potassium 5.3 mmol/L (3.5-5.1) H D 12/29/20 07:34 Chloride 100 mmol/L (98-107) 12/29/20 07:34 Carbon Dioxide 30 mmol/L (21-32) 12/29/20 07:34 Anion Gap 5.0 (3-11) 12/29/20 07:34 BUN 33 mg/dl (7-18) H D 12/29/20 07:34 Creatinine 4.70 mg/dl (0.6-1.2) H* D 12/29/20 07:34 Est Cr Clr Drug Dosing 9.3 ml/min 12/29/20 07:34 Est GFR ( Amer) 9.8 ml/min 12/29/20 07:34 Est GFR (Non-Af Amer) 8.5 ml/min 12/29/20 07:34 BUN/Creatinine Ratio 7.0 (10-20) L 12/29/20 07:34 Glucose 100 mg/dl (70-99) H 12/29/20 07:34 POC Glucose 158 mg/dl (70-99) H 12/29/20 16:49 Estimat Average Glucose 160 mg/dl 12/29/20 07:34 Hemoglobin A1c 7.2 % (4.5-5.6) H 12/29/20 07:34 Calcium 9.2 mg/dl (8.5-10.1) 12/29/20 07:34 Magnesium 2.4 mg/dl (1.8-2.4) 12/28/20 10:35 Total Bilirubin 0.8 mg/dl (0.2-1) 12/28/20 10:35 AST 13 U/L (15-37) L 12/28/20 10:35 ALT 11 U/L (12-78) L 12/28/20 10:35 Alkaline Phosphatase 105 U/L (45-117) 12/28/20 10:35 Troponin I < 0.015 ng/ml (0-0.045) 12/28/20 10:35 C-Reactive Protein 0.70 mg/dl (0-0.29) H 12/28/20 10:35 Total Protein 8.3 gm/dl (6.4-8.2) H 12/28/20 10:35 Albumin 3.9 gm/dl (3.4-5.0) 12/28/20 10:35 Globulin 4.4 gm/dl (2.5-4.0) H 12/28/20 10:35 Albumin/Globulin Ratio 0.9 (0.9-2) 12/28/20 10:35 Triglycerides 136 mg/dl (0-150) 12/29/20 07:34 Cholesterol 94 mg/dl (0-200) 12/29/20 07:34 LDL Cholesterol, Calc 39 mg/dl 12/29/20 07:34 VLDL Cholesterol, Calc 27 mg/dl 12/29/20 07:34 HDL Cholesterol 28 mg/dl 12/29/20 07:34 Cholesterol/HDL Ratio 3 12/29/20 07:34 Fluid Neutrophils % 7 % 12/29/20 Unknown Fluid Lymphocytes % 80 % 12/29/20 Unknown Fluid Eosinophils % 1 % 12/29/20 Unknown Fluid Basophils % 0 % 12/29/20 Unknown Fluid Meso/Macro/Dolores % 12 % 12/29/20 Unknown Fluid Comment 12/29/20 Unknown Peritoneal Color YELLOW 12/29/20 Unknown Peritoneal Appearance CLEAR 12/29/20 Unknown Peritoneal WBC 343 /ul (0-300) H 12/29/20 Unknown Peritoneal RBC < 3000 /uL 12/29/20 Unknown Peritoneal Tot Protein 4.5 g/dl 12/29/20 Unknown Peritoneal Albumin 2.5 g/dl 12/29/20 Unknown Peritoneal Albumin Cancelled 12/29/20 Unknown Nasal Screen MRSA (PCR) Negative (Negative) 12/28/20 17:55 COVID-19 Eval Order Covid19 at [facility] 12/28/20 11:38 SARS-CoV-2 (PCR) NEGATIVE (Negative) 12/28/20 11:38 Hepatitis C Ab Screen Neg (Neg) 12/29/20 07:34 Impressions Head CTA 12/28/20 10:34 CT ANGIOGRAM OF THE BRAIN; CT ANGIOGRAM OF THE NECK CLINICAL HISTORY: Strokelike symptoms. Left foot numbness. Left-sided visual changes. COMPARISON STUDY: Unenhanced CT of the brain performed concurrently on 12/28/2020. TECHNIQUE: Following the IV administration of 120 of Optiray 320, CT angiogram of the head and neck was performed from the aortic arch to the vertex. Images are reviewed in the axial, sagittal, and coronal planes. 3-D MIPS images are created and assessed. IV contrast was administered without complication. All measurements were calculated based on NASCET criteria. A dose lowering technique was utilized adhering to the principles of ALARA. CT DOSE: 1017.63 mGy.cm FINDINGS: Brain parenchyma: There is age-related involutional change noting moderate subcortical and periventricular microangiopathic disease. There is no hemorrhage, mass effect, or evidence of acute territorial ischemia by CT criteria. There is no evidence of enhancing mass lesion on the angiogram phase images. The ventricles, sulci, and cisterns are prominent secondary to involutional change. Cutler-white matter differentiation is preserved. No extra- axial fluid collection is seen. Mineralization is noted in the basal ganglia. Thoracic aorta: There is advanced atherosclerotic calcification of the thoracic aorta. Visualized portions of the thoracic aorta are normal in caliber. The aortic arch demonstrates standard 3-vessel anatomy. Right carotid arterial system: The right common carotid artery is widely patent. Advanced atherosclerotic plaque causes approximately 50-60% focal stenosis at the origin of the right internal carotid artery. The mid to distal portions of the right internal carotid artery are widely patent. The right external carotid artery is clear. Left carotid arterial system: The left common carotid artery is widely patent. Advanced atherosclerotic plaque is seen in the carotid bulb. This causes less than 50% luminal narrowing at the origin of the left internal carotid artery. The mid to distal left internal carotid artery is widely patent, as is the left external carotid artery. Vertebral arteries: The vertebral arteries are widely patent bilaterally noting a left-sided dominance. Subclavian arteries: Widely patent bilaterally. Intracranial vasculature: There is atherosclerotic calcification of the cavernous carotid and vertebral arteries The internal carotid arteries are patent at the skull base, as are the anterior and middle cerebral arteries bilaterally. The vertebrobasilar system and posterior cerebral arteries are wide ly patent. The left vertebral artery is dominant. The intracranial right vertebral artery is diminutive. There is no aneurysm, high-grade stenosis, or focal vessel cut off seen throughout the intracranial circulation. Jugular veins: Patent bilaterally. A right internal jugular central venous catheter is in place. Dural sinuses: Patent. Lung apices: Partially visualized upper lobe lung parenchyma appears clear. Pacemaker leads are noted at the left thoracic inlet. Soft tissues: The visualized pharyngeal soft tissues are normal in appearance noting angiographic phase technique. The oropharyngeal airway appears widely patent. The salivary and thyroid glands are normal in appearance. No cervical lymphadenopathy is seen. Skeletal structures: The skeletal structures are osteopenic. The calvarium appears intact. The cervical spine is maintained noting multilevel spondylosis. No lytic or blastic lesion is seen. Sinuses and mastoids: The paranasal sinuses are clear. There is trace right mastoid effusion. The left mastoid air cells are well pneumatized. IMPRESSION: 1. There is no evidence of hemorrhage, mass effect, or evidence of acute territorial ischemia noting angiographic phase technique. 2. Unremarkable CT angiogram of the brain. 3. Advanced atherosclerotic plaque causes 50-60% focal stenosis at the origin of the right internal carotid artery. 4. There is less than 50% focal stenosis at the origin of the left internal carotid artery. ACT 112: Negative or not required by law. Electronically signed by: Colten Jacinto M.D. 12/28/2020 11:28 AM Neck CTA 12/28/20 10:34 CT ANGIOGRAM OF THE BRAIN; CT ANGIOGRAM OF THE NECK CLINICAL HISTORY: Strokelike symptoms. Left foot numbness. Left-sided visual changes. COMPARISON STUDY: Unenhanced CT of the brain performed concurrently on 12/28/2020. TECHNIQUE: Following the IV administration of 120 of Optiray 320, CT angiogram of the head and neck was performed from the aortic arch to the vertex. Images are reviewed in the axial, sagittal, and coronal planes. 3-D MIPS images are created and assessed. IV contrast was administered without complication. All measurements were calculated based on NASCET criteria. A dose lowering technique was utilized adhering to the principles of ALARA. CT DOSE: 1017.63 mGy.cm FINDINGS: Brain parenchyma: There is age-related involutional change noting moderate subcortical and periventricular microangiopathic disease. There is no hemorrhage, mass effect, or evidence of acute territorial ischemia by CT criteria. There is no evidence of enhancing mass lesion on the angiogram phase images. The ventricles, sulci, and cisterns are prominent secondary to involutional change. Cutler-white matter differentiation is preserved. No extra- axial fluid collection is seen. Mineralization is noted in the basal ganglia. Thoracic aorta: There is advanced atherosclerotic calcification of the thoracic aorta. Visualized portions of the thoracic aorta are normal in caliber. The aortic arch demonstrates standard 3-vessel anatomy. Right carotid arterial system: The right common carotid artery is widely patent. Advanced atherosclerotic plaque causes approximately 50-60% focal stenosis at the origin of the right internal carotid artery. The mid to distal portions of the right internal carotid artery are widely patent. The right external carotid artery is clear. Left carotid arterial system: The left common carotid artery is widely patent. Advanced atherosclerotic plaque is seen in the carotid bulb. This causes less than 50% luminal narrowing at the origin of the left internal carotid artery. The mid to distal left internal carotid artery is widely patent, as is the left external carotid artery. Vertebral arteries: The vertebral arteries are widely patent bilaterally noting a left-sided dominance. Subclavian arteries: Widely patent bilaterally. Intracranial vasculature: There is atherosclerotic calcification of the cavernous carotid and vertebral arteries The internal carotid arteries are patent at the skull base, as are the anterior and middle cerebral arteries bilaterally. The vertebrobasilar system and posterior cerebral arteries are widely patent. The left vertebral artery is dominant. The intracranial right vertebral artery is diminutive. There is no aneurysm, high-grade stenosis, or focal vessel cut off seen throughout the intracranial circulation. Jugular veins: Patent bilaterally. A right internal jugular central venous catheter is in place. Dural sinuses: Patent. Lung apices: Partially visualized upper lobe lung parenchyma appears clear. Pacemaker leads are noted at the left thoracic inlet. Soft tissues: The visualized pharyngeal soft tissues are normal in appearance noting angiographic phase technique. The oropharyngeal airway appears widely patent. The salivary and thyroid glands are normal in appearance. No cervical lymphadenopathy is seen. Skeletal structures: The skeletal structures are osteopenic. The calvarium appears intact. The cervical spine is maintained noting multilevel spondylosis. No lytic or blastic lesion is seen. Sinuses and mastoids: The paranasal sinuses are clear. There is trace right mastoid effusion. The left mastoid air cells are well pneumatized. IMPRESSION: 1. There is no evidence of hemorrhage, mass effect, or evidence of acute territorial ischemia noting angiographic phase technique. 2. Unremarkable CT angiogram of the brain. 3. Advanced atherosclerotic plaque causes 50-60% focal stenosis at the origin of the right internal carotid artery. 4. There is less than 50% focal stenosis at the origin of the left internal carotid artery. ACT 112: Negative or not required by law. Electronically signed by: Colten Jacinto M.D. 12/28/2020 11:28 AM Abdomen Ultrasound 12/28/20 14:00 ABDOMINAL ULTRASOUND, RIGHT UPPER QUADRANT HISTORY: ascites. COMPARISON: September 04, 2019. FINDINGS: Visualized portion of the liver shows no evidence of focal lesions or intrahepatic biliary dilatation. Ascites is seen within all focal quadrants of the abdomen.. IMPRESSION: Ascites is present. ACT 112: Negative or not required by law. The above report was generated using voice recognition software. It may contain grammatical, syntax or spelling errors. Electronically signed by: Mihaela Byers DO 12/28/2020 7:[address] 12/29/20 08:00 CT head/brain wo con CLINICAL HISTORY: repeat to eval for tia/cva COMPARISON STUDY: December 28, 2020 TECHNIQUE: Axial CT of the brain is performed from the vertex to the skull base. IV contrast was not administered for this examination. A dose lowering technique was utilized adhering to the principles of ALARA. CT DOSE: 537.48 mGy.cm FINDINGS: No acute intracranial hemorrhage, no midline shift or space occupying lesions. Interval increase in attenuation within the dural sinuses as well as mild opacification of the distal carotid arteries and its branches likely due to incompletely excreted intravenous contrast that was used for recent CT angiography of the neck. Cutler-white matter differentiation is preserved. Calcifications within bilateral basal ganglia and left cerebellar lobe are again seen. There are patchy white matter hypodensities likely on a small vessel basis. There is no evidence of pathologic ventricular dilatation. There is no acute depressed skull fracture seen. Visualized paranasal sinuses and mastoid air cells are patent and well-aerated. IMPRESSION: No acute intracranial hemorrhage, no midline shift or space occupying lesions. Opacification of arterial and venous system is likely due to incompletely excreted intravenous contrast which was useful recent CT angiography. ACT 112: Negative or not required by law. The above report was generated using voice recognition software. It may contain grammatical, syntax or spelling errors. Electronically signed by: Mihaela Byers DO 12/29/2020 8:17 AM Paracentesis Ultrasound 12/29/20 09:00 PARACENTESIS UNDER ULTRASOUND GUIDANCE CLINICAL HISTORY: Distention. Abdominal ascites. COMPARISON STUDY: Abdominal ultrasound dated 12/28/2020. PROCEDURE: The risks, benefits, and alternatives to the procedure were discussed with the patient who voiced understanding. Written informed consent was obtained. Following real-time ultrasound localization of a suitable pocket of fluid in the left lower quadrant, the abdomen was prepped and draped in the usual sterile fashion. The skin and soft tissues were anesthetized with 1% lidocaine. The sheathed paracentesis needle was inserted and approximately 5 liters of straw-colored ascitic fluid was removed by vacuum suction. A sample sent for laboratory analysis. The procedure was well tolerated and without immediate complication. The patient left the department in satisfactory condition. IMPRESSION: Successful ultrasound-guided paracentesis with removal of approximately 5 liters of ascitic fluid. ACT 112: Negative or not required by law. Electronically signed by: Colten Jacinto M.D. 12/29/2020 10:54 AM Hospital Course (1) Transient visual disturbance, left: Transient visual loss during hemodialysis just prior to admission. She did have 1 very short episode that was the same while admitted that was less than 5 minutes. Vision returned to normal. Positive phenomena with was noted. She is also had a sensation of [id number] in her left foot that has persisted. No prednisone or push for temporal artery biopsy at this time. She did have a repeat CT scan this morning of her head revealing no acute intracranial hemorrhage midline shift or space-occupying lesions (MRI contraindicated in setting of cardiac device). ESR was low. Neurology was consulted and felt this was impaired vision in the left eye of unclear etiology. Although right internal carotid stenosis was found on imaging work-up, she described the phenomenon as affecting all of her vision which should not be related to the stenosis. There was no convincing evidence of temporal arteritis. Although there could have been transient ischemia it was difficult to prove and she is already on antiplatelet therapy with multiple contraindications for anticoagulation or further antiplatelet therapy. Ophthalmology follow-up was recommended along with continuing risk factor modification. Foot symptoms may be consistent with diabetic neuropathy. This is a diagnosis she is known to carry. A follow-up carotid ultrasound in 6 months was recommended for reevaluation. Per ophthalmology discussion, she will follow up with their clinic for formal slit-lamp examination on Friday of next week. (2) Ascites: Known history of cirrhosis with paracentesis in the past. Per patient she states that she has had a few months of persistent abdominal pain with swelling. Last paracentesis was performed last fall. She underwent an ultrasound-guided paracentesis with removal of 5L of ascitic fluid. As nephrology was already following her because of her need for ongoing dialysis, they also mentioned no indication for diuretics at this point to prevent further development of ascites moving forward. No evidence of infection was seen and this was verified with the GI physician rn rehabilitation at the time. (3) End-stage renal disease (ESRD): Hemodialysis Friday//Friday Full treatment [facility] [facility], 2.5 L removed Consult nephrology for dialysis needs Continue PhosLo, fluid restriction, daily weights (4) Diabetes mellitus, type II: Controlled per last A1c which was 6.6 in November 2020. Continue Lantus and NovoLog per inpatient protocol. Inpatient glucose at goal. Diabetic neuropathy per history. (5) Idiopathic cardiomyopathy: She appears compensated, History of idiopathic cardiomyopathy with NYHA class III systolic CHF status post biventricular ICD implantation with previously reduced ejection fraction Most recent echo 03/20/2020 EF 50 to 55%, septal motion dyskinetic likely to due to RV pacemaker activation, RV mildly dilated, RV systolic ultimately reduced, severe TR, mild pulmonary hypertension Daily weights, strict I's and O's Hemodialysis for volume management Continue ASA, statin, Coreg, hydralazine, torsemide (6) Paroxysmal atrial fibrillation: On amiodarone and Coreg Also on amiodarone secondary to history of V. tach, pacemaker/AICD in place Off anticoagulation secondary to thrombocytopenia and GI bleeding Interrogate pacer to eval for A. fib (7) Anemia in ESRD (end-stage renal disease): Hemoglobin and hematocrit is stable, continue to monitor periodically. 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 There is no evidence of overt bleeding. (9) DVT prophylaxis: Heparin Full code Disposition-returned to home for ongoing self-care. Cheryl Ricketts DO [facility] Hospitalist Total Time Total Time Spent Total Time Spent (In Minutes): 60 Total Time Includes: Examination of the Patient, Discharge Planning, Medication Reconciliation and Communication With Other Providers Discharge Plan Discharge Items Patient Disposition: Home - Self-Care Reason For Visit: STROKE LIKE SX TIA RULE OUT Discharge Diagnosis: Transient monocular vision loss of the left eye-resolved, unclear etiology Peripheral arterial disease ESRD, on hemodialysis Activity: Resume your previous activity Non-emergency contact: Primary Care Provider Call non-emergency contact if: you have any medication questions, your symptoms worsen, your pain is not controlled, your pain is worsening, your pain is unusual for you, your pain is concerning for you and you have a fever Follow-up/Referrals: Petr Guerra DO [Physician] - 01/01/21 2:15 pm ([facility] [address], [place] [address] Please arrive a half hour early to complete new patient paperwork OR go to [email or web address] and fill out online prior to arrival.) Zeynep Johnson MD [Primary Care Provider] - (Date & Time 01/04/2021 1:40 PM Provider Zeynep Loaiza MD Department Family Medicine [facility] ) Diet: Carb Consistent or DM2 and Dialysis Renal Fluids: 1500ml (6 cups) Addtl Attending Provider Instructions: Ms. Villar, You were admitted to the hospital for transient monocular vision loss in the left eye. The work-up for this will continue as an outpatient as you are scheduled to see an researcher on Friday. He will perform a more in-depth exam of your visual capabilities. It does not appear that you suffered a stroke, but it is unclear what caused your transient change in vision. Please see the researcher listed above, Dr. Guerra, on Friday for further investigation into this cause. Please continue with dialysis tomorrow for your regular scheduled session. There have been no changes to your medications. Imaging studies revealed some plaque in your right internal carotid artery (one of your neck vessels). A repeat carotid ultrasound should be performed in 6 months time. This can be ordered by her primary care physician. While you were admitted you underwent a paracentesis (fluid drawn from abdomen) and 5L was removed. There was no evidence of infection here. Per your fuel tank sealer and tester, it is not prudent to start you on any diuretics (water pills) to keep this fluid from reaccumulating. However, this may happen with time, given your known liver disease. Please seek medical attention if your abdomen becomes painful or swollen or for any concerns. It is recommended that you follow-up with your primary care physician at the [place] time above to ensure you are still doing well after discharge home from the hospital. It was a pleasure taking care of you! Please call if you have any questions or problems. You can reach a [facility] hospitalist on duty at [facility] 24 hours a day by calling [phone]. Take care of yourself. Cheryl Ricketts, DO [facility] Hospitalist Pending Studies at Discharge: Yes Studies:: final peritoneal fluid culture pending at time of discharge. Stand-Alone Forms: [facility] Medications and DC Order Prescriptions: Continued atorvastatin 40 mg tablet 40 mg PO HS RF: 0 carvedilol 25 mg tablet 50 mg PO BID RF: 0 torsemide 20 mg tablet 20 mg PO QAM RF: 0 amiodarone 200 mg tablet 200 mg PO QAM RF: 0 Lantus Solostar U-100 Insulin 100 unit/mL (3 mL) insulin pen 10 units subcut PM RF: 0 hydralazine 50 mg tablet 50 mg PO TID RF: 0 lorazepam [Ativan] 0.5 mg tablet 0.5 mg PO DAILY PRN (Reason: Anxiety) RF: 0 polyethylene glycol 3350 [Miralax] 17 gram Powder In Packet 8.5 g PO DAILY PRN (Reason: Constipation) RF: 0 acetaminophen 500 mg Tablet 1,000 mg PO Q6H PRN (Reason: Pain) RF: 0 lidocaine-prilocaine 2.5-2.5 % Cream 1 applic topical UD RF: 0 albuterol sulfate 90 mcg/actuation HFA aerosol inhaler 2 puff INHALATION Q4 PRN (Reason: Shortness Of Breath Or Wheezing) RF: 0 docusate sodium 100 mg Tablet 100 mg PO QAM RF: 0 ondansetron HCl [Zofran] 4 mg tablet 4 mg PO Q8H PRN (Reason: nausea and vomiting) Qty: 20 RF: 0 Probiotic (B. coagulans) 10 billion cell capsule,delayed release(DR/EC) 0 cell PO DAILY RF: 0 loratadine [Claritin] 10 mg tablet 10 mg PO Q OTHER DAY RF: 0 calcium acetate(phosphat bind) 667 mg capsule 667 mg PO TIDM RF: 0 hydrocortisone [Proctosol HC] 2.5 % Cream With Perineal Applicator 1 applic EXT BID PRN (Reason: hemorrhoids) Qty: 30 RF: 0 aspirin 81 mg Tablet,Delayed Release (Dr/Ec) 81 mg PO DAILY RF: 0 omeprazole 20 mg capsule,delayed release(DR/EC) 20 mg PO DAILY RF: 0 insulin aspart U-100 [Novolog Flexpen U-100 Insulin] 100 unit/mL (3 mL) insulin pen 0 unit SUBCUT UD RF: 0 Combivent Respimat 20-100 mcg/actuation Mist 1 puff INHALATION Q4H PRN (Reason: Shortness Of Breath Or Wheezing) RF: 0 Discharge Orders: Discharge Order (Routine); Ordered 12/29/20 Ordered By: Cheryl Rodriges/Other Patient Handouts: Managing Type 2 Diabetes, A1C Admission Data Admit Date/Time: 12/28/20 12:42 Attending Provider: Cheryl Ricketts Admit Provider: Cheryl Ricketts Primary Care Provider: Zeynep Johnson Other Providers: Gil Turcios ; Burak Zaragoza Other Interventions: Discharge Summary Assessment (RN) Last Done: 12/29/20 20:04
[2020-12-29] MEDS ORDERED: STROKE PATIENT DISCHARGE STA (19:45)
[2020-12-30] MEDS ORDERED: EPOETIN ALFA 10,000 UNITS/ML VIAL IV SCH (07:00)
[2020-12-30] MEDS ORDERED: SODIUM CHLORIDE 0.9% 1000ML 1,000 ML IV PRN (07:00)
[2020-12-30] MEDS ORDERED: HEPARIN SOD (PORCINE) 1000 UNIT/ML IV ONE (07:00)
[2020-12-30] MEDS ORDERED: HEPARIN SOD (PORCINE) 1000 UNIT/ML IV SCH (07:00)
== END 2020-12-29 20:20 | disposition home or self-care (01) ==
LOC: ED 09:40 → 2W 09:40
DX: Z20.822 Contact with and (suspected) exposure to COVID-19; E78.5 Hyperlipidemia, unspecified; I48.0 Paroxysmal atrial fibrillation; I65.23 Occlusion and stenosis of bilateral carotid arteries; Z95.810 Presence of automatic (implantable) cardiac defibrillator; Z99.2 Dependence on renal dialysis; R18.8 Other ascites; Z79.82 Long term (current) use of aspirin; N25.81 Secondary hyperparathyroidism of renal origin; D69.6 Thrombocytopenia, unspecified; H53.122 Transient visual loss, left eye; Z79.4 Long term (current) use of insulin; K74.60 Unspecified cirrhosis of liver; E11.22 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 diabetic chronic kidney disease; I42.9 Cardiomyopathy, unspecified; Z91.048 Other nonmedicinal substance allergy status; H91.90 Unspecified hearing loss, unspecified ear; N18.6 End stage renal disease; I12.0 Hypertensive chronic kidney disease with stage 5 chronic kidney disease or end stage renal disease; E11.51 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 diabetic peripheral angiopathy without gangrene; Z86.73 Personal history of transient ischemic attack (TIA), and cerebral infarction without residual deficits; Z79.899 Other long term (current) drug therapy

== ENCOUNTER 2022-06-27 11:08 | Inpatient (IN) ==
[~2022-06-27 11:08] MED LIST changes: -ACET-1256 PO; -ASPI81TA28 PO; -CALC1TAB23 PO; -CARV25TA2 PO; -CHOL2000 PO; -CRD200 PO; -CYAN100020 PO; -DMD20 PO; -ESCI1TAB18 PO; +ETOMIDATE 2 MG/ML 20 ML VIAL IV ONE; -INSDGIPEN SQ; -IPRASOL4 INH; -LORA-741 PO; -LPT40 PO; -MULT-603 PO; -NUTR-1197 PO; -NVLGI/PEN SC; -PYRI100T4 PO; -RANI150T2 PO; +ROCURONIUM BROMIDE 10 MG/ML 5 ML VIAL IV ONE; -SACC250C PO; -WARF-283 PO; -ZINC40OI13 TOP; +fentaNYL citrate 100 MCG/2 ML VIAL IV ONE
[2022-06-27 11:22] VITALS: TEMP 98.2
--- NOTE | 2022-06-27 11:55 | Emergency Department Note ---
History of Present Illness General Chief complaint: Illness Stated complaint: FALL, ILLNESS, TROUBLE SWALLOWING Time Seen by Provider: 06/27/22 11:38 History of Present Illness Provider complaint: Fall Onset (ago): hour(s) 1 Location: head, upper extremity and right Severity: moderate Pain Consistency: + constant Maximum Pain Intensity: 5 Quality: + stabbing, + aching, + sharp and + dull Relieved By: + movement Exacerbated By: + immobilization Associated symptoms: + headaches, + loss of appetite, + malaise and + shortness of breath; no fever/chills or no nausea/vomiting 76-year-old female end-stage renal disease on hemodialysis Friday presents emergency department for fall. Patient states she woke up this morning felt very weak and fell 1 hour ago. She states she hit the right side of her head. She reports a headache. She reports no nausea or vomiting. She is also reporting pain in her right upper extremity in the shoulder and in the proximal humerus. Patient states that she has not gone to dialysis since Friday missing her dose of dialysis on Friday as well as today. Patient states she did not go to dialysis for her last 2 sessions because she has had diarrhea since Friday. No melena hematochezia. Home Medications Medication Instructions Recorded Confirmed Type amiodarone 200 mg tablet 200 mg PO QAM 10/30/18 06/27/22 History atorvastatin 40 mg tablet 40 mg PO HS 10/30/18 06/27/22 History carvedilol 25 mg tablet 25 mg PO BID 10/30/18 06/27/22 History insulin glargine 100 unit/mL (3 5 units subcut PM 10/30/18 06/27/22 History mL) subcutaneous pen (Lantus Solostar U-100 Insulin) torsemide 20 mg tablet 20 mg PO QAM 10/30/18 06/27/22 History hydralazine 50 mg tablet 50 mg PO BID 04/27/19 06/27/22 History lorazepam 0.5 mg tablet (Ativan) 0.5 mg PO DAILY PRN Anxiety 04/27/19 06/27/22 History acetaminophen 500 mg tablet 1,000 mg PO Q6H PRN Pain 09/03/19 06/27/22 History albuterol sulfate 90 mcg/actuation 2 puff inhalation Q4 PRN Shortness 09/03/19 06/27/22 History aerosol inhaler Of Breath Or Wheezing docusate sodium 100 mg tablet 100 mg PO BID 09/03/19 06/27/22 History lidocaine-prilocaine 2.5 %-2.5 % 1 applic topical UD 09/03/19 06/27/22 History topical cream polyethylene glycol 3350 17 gram 8.5 g PO DAILY PRN Constipation 09/03/19 06/27/22 History oral powder packet (Miralax) Bacillus coagulans 10 billion cell 0 cell PO DAILY 05/14/20 06/27/22 History capsule,delayed release (Probiotic (B. coagulans)) calcium acetate(phosphat bind) 667 667 mg PO TIDM 05/14/20 06/27/22 History mg capsule loratadine 10 mg tablet (Claritin) 10 mg PO Q OTHER DAY 05/14/20 06/27/22 History hydrocortisone 2.5 % topical cream 1 applic EXT BID PRN hemorrhoids 05/17/20 06/27/22 Rx with perineal applicator #30 grams (Proctosol HC) aspirin 81 mg tablet,delayed 81 mg PO DAILY 12/28/20 06/27/22 History release insulin aspart U-100 100 unit/mL 3 - 6 unit subcut UD 12/28/20 06/27/22 History (3 mL) subcutaneous pen (Novolog Flexpen U-100 Insulin aspart) ipratropium 20 mcg-albuterol 100 1 puff inhalation Q4H PRN 12/28/20 06/27/22 History mcg/actuation mist for inhalation Shortness Of Breath Or Wheezing (Combivent Respimat) omeprazole 20 mg capsule,delayed 20 mg PO DAILY 12/28/20 06/27/22 History release cranberry 500 mg capsule 500 mg PO DAILY 05/27/22 06/27/22 History sertraline 50 mg tablet 50 mg PO DAILY 05/27/22 06/27/22 History ondansetron HCl 4 mg tablet 4 mg PO Q8H PRN NAUSEA/VOMITING 06/27/22 06/27/22 History Allergies Allergy/AdvReac Type Severity Reaction Status Date / Time strawberry Allergy Severe EDEMA OF Verified 06/27/22 15:31 FACE /LIPS /TONGUE adhesive Allergy Mild RXN TO Verified 06/27/22 15:31 ADHESIVE ON NITRO PATCH DESIREE Inhibitors AdvReac Intermediate COUGH Verified 06/27/22 15:31 amlodipine AdvReac Intermediate RETAIN Verified 06/27/22 15:31 FLUID diphenhydramine AdvReac Intermediate VERY WEAK, Verified 06/27/22 15:31 CHF lisinopril AdvReac Intermediate COUGH Verified 06/27/22 15:31 nitroglycerin AdvReac Intermediate HEADACHE/NA Verified 06/27/22 15:31 USEA Sulfa (Sulfonamide AdvReac Intermediate "KNOCKS ME Verified 06/27/22 15:31 Antibiotics) OUT" Past Med/Surg History Medical History Acute GI bleeding Anemia of renal disease Anxiety Biventricular ICD (implantable cardioverter-defibrillator) [facility] place [facility] 01/2012 @ [facility] Cirrhosis Degenerative cervical disc Depression Diabetes mellitus, type II End-stage renal disease (ESRD) Endocarditis Pacemaker wire vegetation ESRD (end stage renal disease) on dialysis [id number] in [place] GERD (gastroesophageal reflux disease) H/O TIA (transient ischemic attack) and stroke in --effected left side/balance Hearing deficit History of congestive heart failure History of recent blood transfusion 2 units PRBCS in May 2020 HTN (hypertension) Hx of supraventricular tachycardia Idiopathic cardiomyopathy Left bundle branch block (11/07/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 currently not taking any--taken off since GI bleed in May Osteoarthritis Paroxysmal atrial fibrillation Pericardial effusion Proteinuria PVD (peripheral vascular disease) Secondary hyperparathyroidism Seizure hx of from ages 11-40s--unknown cause--was on dilantin, no meds now, no neurologist Slow transit constipation Streptococcus bovis infection Bacteremia with pacemaker lead vegetation Thrombocytopenia Vascular dialysis catheter in place Surgical History H/O dilation and curettage History of appendectomy History of cataract surgery bilt History of colonoscopy with polypectomy History of esophagogastroduodenoscopy (EGD) History of hysterectomy History of left breast biopsy benign History of left hip hemiarthroplasty History of right breast biopsy benign History of wisdom tooth extraction S/P pericardial surgery Pericardial window for pericardial effusion Family History Brother Diabetes Mother Diabetes Coronary heart disease Sister Diabetes Uncle Family history of esophageal cancer Other No family history of adverse response to anesthesia Social History Smoking Status: Never smoker 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); Hx Alcohol Use: No Hx Substance Use: No Preferred Language: Romanian Communication Ability: Unable Communication Ability Comment: pt to be comfort care University Relations Director Required: No Beliefs That Will Affect Care: None marital status: / Current Living Situation: Alone How many Children do You have: 2 Assistive Devices: Walker Review of Systems A total of 10 systems reviewed and were otherwise negative Physical Exam Vital Signs Vital Signs - 24 hr 06/27/22 11:14 06/27/22 11:24 06/27/22 12:01 Temperature 36.8 C Temperature Source Oral Pulse Rate 66 60 Pulse Rate [Apical] 61 Pulse Rate from SpO2 Sensor Pulse Rhythm Regular Regular Pulse Rhythm [Apical] Regular Pulse Strength Normal Respiratory Rate 20 22 20 Respiratory Effort / Characteristics Non-Labored Spontaneous Respiratory Depth Normal Normal Respiratory Pattern Regular Blood Pressure 150/72 H Blood Pressure [Right Arm] 130/65 Blood Pressure Mean 98 Blood Pressure Mean [Right Arm] 86 Blood Pressure Position Sitting Pulse Oximetry 98 99 96 Oxygen Delivery Method Room Air Room Air Room Air Fraction of Inspired Oxygen Sepsis Recent Fever Within 48 Hours Yes Sepsis New/Unexplained Change in Mental Status No Sepsis Action Taken by Nursing No Action Required Arterial BP Systolic Arterial BP Diastolic Arterial BP Mean Arterial Pulse Rate End-Tidal CO2 06/27/22 11:14 06/27/22 11:20 06/27/22 11:23 Temperature Temperature Source Pulse Rate 76 67 Pulse Rate [Apical] Pulse Rate from SpO2 Sensor 76 67 Pulse Rhythm Pulse Rhythm [Apical] Pulse Strength Respiratory Rate 17 20 Respiratory Effort / Characteristics Respiratory Depth Respiratory Pattern Blood Pressure 132/81 Blood Pressure [Right Arm] Blood Pressure Mean 98 Blood Pressure Mean [Right Arm] Blood Pressure Position Pulse Oximetry 100 98 Oxygen Delivery Method Fraction of Inspired Oxygen Sepsis Recent Fever Within 48 Hours Sepsis New/Unexplained Change in Mental Status Sepsis Action Taken by Nursing Arterial BP Systolic Arterial BP Diastolic Arterial BP Mean Arterial Pulse Rate End-Tidal CO2 06/27/22 11:23 06/27/22 11:30 06/27/22 11:30 Temperature Temperature Source Pulse Rate 64 62 Pulse Rate [Apical] Pulse Rate from SpO2 Sensor 65 61 Pulse Rhythm Pulse Rhythm [Apical] Pulse Strength Respiratory Rate 16 22 Respiratory Effort / Characteristics Respiratory Depth Respiratory Pattern Blood Pressure 130/65 Blood Pressure [Right Arm] Blood Pressure Mean 86 Blood Pressure Mean [Right Arm] Blood Pressure Position Pulse Oximetry 100 97 Oxygen Delivery Method Fraction of Inspired Oxygen Sepsis Recent Fever Within 48 Hours Sepsis New/Unexplained Change in Mental Status Sepsis Action Taken by Nursing Arterial BP Systolic Arterial BP Diastolic Arterial BP Mean Arterial Pulse Rate End-Tidal CO2 06/27/22 11:40 06/27/22 11:45 06/27/22 11:45 Temperature Temperature Source Pulse Rate 60 60 Pulse Rate [Apical] Pulse Rate from SpO2 Sensor Pulse Rhythm Pulse Rhythm [Apical] Pulse Strength Respiratory Rate 22 17 Respiratory Effort / Characteristics Respiratory Depth Respiratory Pattern Blood Pressure 134/61 Blood Pressure [Right Arm] Blood Pressure Mean 85 Blood Pressure Mean [Right Arm] Blood Pressure Position Pulse Oximetry Oxygen Delivery Method Fraction of Inspired Oxygen Sepsis Recent Fever Within 48 Hours Sepsis New/Unexplained Change in Mental Status Sepsis Action Taken by Nursing Arterial BP Systolic Arterial BP Diastolic Arterial BP Mean Arterial Pulse Rate End-Tidal CO2 06/27/22 11:50 06/27/22 12:00 06/27/22 12:00 Temperature Temperature Source Pulse Rate 60 65 Pulse Rate [Apical] Pulse Rate from SpO2 Sensor Pulse Rhythm Pulse Rhythm [Apical] Pulse Strength Respiratory Rate 18 20 Respiratory Effort / Characteristics Respiratory Depth Respiratory Pattern Blood Pressure 121/68 Blood Pressure [Right Arm] Blood Pressure Mean 85 Blood Pressure Mean [Right Arm] Blood Pressure Position Pulse Oximetry Oxygen Delivery Method Fraction of Inspired Oxygen Sepsis Recent Fever Within 48 Hours Sepsis New/Unexplained Change in Mental Status Sepsis Action Taken by Nursing Arterial BP Systolic Arterial BP Diastolic Arterial BP Mean Arterial Pulse Rate End-Tidal CO2 06/27/22 12:10 06/27/22 12:24 06/27/22 12:30 Temperature Temperature Source Pulse Rate 60 Pulse Rate [Apical] Pulse Rate from SpO2 Sensor Pulse Rhythm Pulse Rhythm [Apical] Pulse Strength Respiratory Rate 16 Respiratory Effort / Characteristics Respiratory Depth Respiratory Pattern Blood Pressure 138/62 Blood Pressure [Right Arm] Blood Pressure Mean 87 Blood Pressure Mean [Right Arm] Blood Pressure Position Pulse Oximetry 99 Oxygen Delivery Method Fraction of Inspired Oxygen Sepsis Recent Fever Within 48 Hours Sepsis New/Unexplained Change in Mental Status Sepsis Action Taken by Nursing Arterial BP Systolic Arterial BP Diastolic Arterial BP Mean Arterial Pulse Rate End-Tidal CO2 06/27/22 12:30 06/27/22 12:40 06/27/22 12:45 Temperature Temperature Source Pulse Rate 60 60 60 Pulse Rate [Apical] Pulse Rate from SpO2 Sensor 60 60 60 Pulse Rhythm Pulse Rhythm [Apical] Pulse Strength Respiratory Rate 17 22 22 Respiratory Effort / Characteristics Respiratory Depth Respiratory Pattern Blood Pressure Blood Pressure [Right Arm] Blood Pressure Mean Blood Pressure Mean [Right Arm] Blood Pressure Position Pulse Oximetry 98 99 97 Oxygen Delivery Method Fraction of Inspired Oxygen Sepsis Recent Fever Within 48 Hours Sepsis New/Unexplained Change in Mental Status Sepsis Action Taken by Nursing Arterial BP Systolic Arterial BP Diastolic Arterial BP Mean Arterial Pulse Rate End-Tidal CO2 06/27/22 12:45 06/27/22 12:48 06/27/22 12:48 Temperature Temperature Source Pulse Rate 60 Pulse Rate [Apical] Pulse Rate from SpO2 Sensor Pulse Rhythm Pulse Rhythm [Apical] Pulse Strength Respiratory Rate 23 Respiratory Effort / Characteristics Respiratory Depth Respiratory Pattern Blood Pressure 120/65 146/56 H Blood Pressure [Right Arm] Blood Pressure Mean 83 86 Blood Pressure Mean [Right Arm] Blood Pressure Position Pulse Oximetry 94 Oxygen Delivery Method Fraction of Inspired Oxygen Sepsis Recent Fever Within 48 Hours Sepsis New/Unexplained Change in Mental Status Sepsis Action Taken by Nursing Arterial BP Systolic Arterial BP Diastolic Arterial BP Mean Arterial Pulse Rate End-Tidal CO2 06/27/22 12:50 06/27/22 13:00 06/27/22 13:00 Temperature Temperature Source Pulse Rate 60 60 Pulse Rate [Apical] Pulse Rate from SpO2 Sensor 60 Pulse Rhythm Pulse Rhythm [Apical] Pulse Strength Respiratory Rate 17 18 Respiratory Effort / Characteristics Respiratory Depth Respiratory Pattern Blood Pressure 141/62 H Blood Pressure [Right Arm] Blood Pressure Mean 88 Blood Pressure Mean [Right Arm] Blood Pressure Position Pulse Oximetry 91 100 Oxygen Delivery Method Fraction of Inspired Oxygen Sepsis Recent Fever Within 48 Hours Sepsis New/Unexplained Change in Mental Status Sepsis Action Taken by Nursing Arterial BP Systolic Arterial BP Diastolic Arterial BP Mean Arterial Pulse Rate End-Tidal CO2 06/27/22 13:10 06/27/22 13:15 06/27/22 13:15 Temperature Temperature Source Pulse Rate 60 60 Pulse Rate [Apical] Pulse Rate from SpO2 Sensor 60 60 Pulse Rhythm Pulse Rhythm [Apical] Pulse Strength Respiratory Rate 21 20 Respiratory Effort / Characteristics Respiratory Depth Respiratory Pattern Blood Pressure 137/56 L Blood Pressure [Right Arm] Blood Pressure Mean 83 Blood Pressure Mean [Right Arm] Blood Pressure Position Pulse Oximetry 100 98 Oxygen Delivery Method Fraction of Inspired Oxygen Sepsis Recent Fever Within 48 Hours Sepsis New/Unexplained Change in Mental Status Sepsis Action Taken by Nursing Arterial BP Systolic Arterial BP Diastolic Arterial BP Mean Arterial Pulse Rate End-Tidal CO2 06/27/22 13:20 06/27/22 13:30 06/27/22 13:32 Temperature Temperature Source Pulse Rate 60 60 60 Pulse Rate [Apical] Pulse Rate from SpO2 Sensor 60 60 60 Pulse Rhythm Pulse Rhythm [Apical] Pulse Strength Respiratory Rate 17 20 18 Respiratory Effort / Characteristics Respiratory Depth Respiratory Pattern Blood Pressure Blood Pressure [Right Arm] Blood Pressure Mean Blood Pressure Mean [Right Arm] Blood Pressure Position Pulse Oximetry 98 100 99 Oxygen Delivery Method Fraction of Inspired Oxygen Sepsis Recent Fever Within 48 Hours Sepsis New/Unexplained Change in Mental Status Sepsis Action Taken by Nursing Arterial BP Systolic Arterial BP Diastolic Arterial BP Mean Arterial Pulse Rate End-Tidal CO2 06/27/22 13:32 06/27/22 13:40 06/27/22 13:46 Temperature Temperature Source Pulse Rate 60 Pulse Rate [Apical] Pulse Rate from SpO2 Sensor 60 Pulse Rhythm Pulse Rhythm [Apical] Pulse Strength Respiratory Rate 22 Respiratory Effort / Characteristics Respiratory Depth Respiratory Pattern Blood Pressure 146/59 H 128/60 Blood Pressure [Right Arm] Blood Pressure Mean 88 82 Blood Pressure Mean [Right Arm] Blood Pressure Position Pulse Oximetry 98 Oxygen Delivery Method Fraction of Inspired Oxygen Sepsis Recent Fever Within 48 Hours Sepsis New/Unexplained Change in Mental Status Sepsis Action Taken by Nursing Arterial BP Systolic Arterial BP Diastolic Arterial BP Mean Arterial Pulse Rate End-Tidal CO2 06/27/22 13:46 06/27/22 13:50 06/27/22 14:00 Temperature Temperature Source Pulse Rate 60 60 60 Pulse Rate [Apical] Pulse Rate from SpO2 Sensor 61 60 60 Pulse Rhythm Pulse Rhythm [Apical] Pulse Strength Respiratory Rate 18 15 20 Respiratory Effort / Characteristics Respiratory Depth Respiratory Pattern Blood Pressure Blood Pressure [Right Arm] Blood Pressure Mean Blood Pressure Mean [Right Arm] Blood Pressure Position Pulse Oximetry 98 100 100 Oxygen Delivery Method Fraction of Inspired Oxygen Sepsis Recent Fever Within 48 Hours Sepsis New/Unexplained Change in Mental Status Sepsis Action Taken by Nursing Arterial BP Systolic Arterial BP Diastolic Arterial BP Mean Arterial Pulse Rate End-Tidal CO2 06/27/22 14:01 06/27/22 14:01 06/27/22 14:10 Temperature Temperature Source Pulse Rate 60 60 Pulse Rate [Apical] Pulse Rate from SpO2 Sensor 60 60 Pulse Rhythm Pulse Rhythm [Apical] Pulse Strength Respiratory Rate 24 19 Respiratory Effort / Characteristics Respiratory Depth Respiratory Pattern Blood Pressure 135/58 L Blood Pressure [Right Arm] Blood Pressure Mean 83 Blood Pressure Mean [Right Arm] Blood Pressure Position Pulse Oximetry 100 97 Oxygen Delivery Method Fraction of Inspired Oxygen Sepsis Recent Fever Within 48 Hours Sepsis New/Unexplained Change in Mental Status Sepsis Action Taken by Nursing Arterial BP Systolic Arterial BP Diastolic Arterial BP Mean Arterial Pulse Rate End-Tidal CO2 06/27/22 14:15 06/27/22 14:15 06/27/22 14:20 Temperature Temperature Source Pulse Rate 60 60 Pulse Rate [Apical] Pulse Rate from SpO2 Sensor 60 60 Pulse Rhythm Pulse Rhythm [Apical] Pulse Strength Respiratory Rate 24 22 Respiratory Effort / Characteristics Respiratory Depth Respiratory Pattern Blood Pressure 123/83 Blood Pressure [Right Arm] Blood Pressure Mean 96 Blood Pressure Mean [Right Arm] Blood Pressure Position Pulse Oximetry 94 100 Oxygen Delivery Method Fraction of Inspired Oxygen Sepsis Recent Fever Within 48 Hours Sepsis New/Unexplained Change in Mental Status Sepsis Action Taken by Nursing Arterial BP Systolic Arterial BP Diastolic Arterial BP Mean Arterial Pulse Rate End-Tidal CO2 06/27/22 14:30 06/27/22 14:30 06/27/22 15:00 Temperature Temperature Source Pulse Rate 60 Pulse Rate [Apical] 60 Pulse Rate from SpO2 Sensor 60 Pulse Rhythm Pulse Rhythm [Apical] Pulse Strength Respiratory Rate 22 21 Respiratory Effort / Characteristics Respiratory Depth Shallow Respiratory Pattern Blood Pressure 136/63 Blood Pressure [Right Arm] Blood Pressure Mean 87 Blood Pressure Mean [Right Arm] Blood Pressure Position Pulse Oximetry 100 96 Oxygen Delivery Method Room Air Fraction of Inspired Oxygen Sepsis Recent Fever Within 48 Hours Sepsis New/Unexplained Change in Mental Status Sepsis Action Taken by Nursing Arterial BP Systolic Arterial BP Diastolic Arterial BP Mean Arterial Pulse Rate End-Tidal CO2 06/27/22 14:40 06/27/22 14:45 06/27/22 14:45 Temperature Temperature Source Pulse Rate 60 60 Pulse Rate [Apical] Pulse Rate from SpO2 Sensor 60 60 Pulse Rhythm Pulse Rhythm [Apical] Pulse Strength Respiratory Rate 20 20 Respiratory Effort / Characteristics Respiratory Depth Respiratory Pattern Blood Pressure 132/80 Blood Pressure [Right Arm] Blood Pressure Mean 97 Blood Pressure Mean [Right Arm] Blood Pressure Position Pulse Oximetry 99 99 Oxygen Delivery Method Fraction of Inspired Oxygen Sepsis Recent Fever Within 48 Hours Sepsis New/Unexplained Change in Mental Status Sepsis Action Taken by Nursing Arterial BP Systolic Arterial BP Diastolic Arterial BP Mean Arterial Pulse Rate End-Tidal CO2 06/27/22 14:50 06/27/22 15:00 06/27/22 15:02 Temperature Temperature Source Pulse Rate 60 60 Pulse Rate [Apical] Pulse Rate from SpO2 Sensor 60 60 Pulse Rhythm Pulse Rhythm [Apical] Pulse Strength Respiratory Rate 24 20 Respiratory Effort / Characteristics Respiratory Depth Respiratory Pattern Blood Pressure Blood Pressure [Right Arm] Blood Pressure Mean 103 Blood Pressure Mean [Right Arm] Blood Pressure Position Pulse Oximetry 100 93 Oxygen Delivery Method Fraction of Inspired Oxygen Sepsis Recent Fever Within 48 Hours Sepsis New/Unexplained Change in Mental Status Sepsis Action Taken by Nursing Arterial BP Systolic Arterial BP Diastolic Arterial BP Mean Arterial Pulse Rate End-Tidal CO2 06/27/22 15:02 06/27/22 15:09 06/27/22 15:09 Temperature Temperature Source Pulse Rate 60 61 Pulse Rate [Apical] Pulse Rate from SpO2 Sensor 60 62 Pulse Rhythm Pulse Rhythm [Apical] Pulse Strength Respiratory Rate 22 20 Respiratory Effort / Characteristics Respiratory Depth Respiratory Pattern Blood Pressure 182/80 H Blood Pressure [Right Arm] Blood Pressure Mean 114 Blood Pressure Mean [Right Arm] Blood Pressure Position Pulse Oximetry 98 91 Oxygen Delivery Method Fraction of Inspired Oxygen Sepsis Recent Fever Within 48 Hours Sepsis New/Unexplained Change in Mental Status Sepsis Action Taken by Nursing Arterial BP Systolic Arterial BP Diastolic Arterial BP Mean Arterial Pulse Rate End-Tidal CO2 06/27/22 15:10 06/27/22 15:15 06/27/22 15:15 Temperature Temperature Source Pulse Rate Pulse Rate [Apical] Pulse Rate from SpO2 Sensor 66 Pulse Rhythm Pulse Rhythm [Apical] Pulse Strength Respiratory Rate 21 21 Respiratory Effort / Characteristics Respiratory Depth Respiratory Pattern Blood Pressure 190/74 H Blood Pressure [Right Arm] Blood Pressure Mean 112 Blood Pressure Mean [Right Arm] Blood Pressure Position Pulse Oximetry 99 Oxygen Delivery Method Fraction of Inspired Oxygen Sepsis Recent Fever Within 48 Hours Sepsis New/Unexplained Change in Mental Status Sepsis Action Taken by Nursing Arterial BP Systolic Arterial BP Diastolic Arterial BP Mean Arterial Pulse Rate End-Tidal CO2 06/27/22 15:20 06/27/22 15:39 06/27/22 15:40 Temperature Temperature Source Pulse Rate 61 61 61 Pulse Rate [Apical] Pulse Rate from SpO2 Sensor 60 62 60 Pulse Rhythm Pulse Rhythm [Apical] Pulse Strength Respiratory Rate 22 Respiratory Effort / Characteristics Respiratory Depth Respiratory Pattern Blood Pressure Blood Pressure [Right Arm] Blood Pressure Mean Blood Pressure Mean [Right Arm] Blood Pressure Position Pulse Oximetry 98 99 96 Oxygen Delivery Method Fraction of Inspired Oxygen Sepsis Recent Fever Within 48 Hours Sepsis New/Unexplained Change in Mental Status Sepsis Action Taken by Nursing Arterial BP Systolic Arterial BP Diastolic Arterial BP Mean Arterial Pulse Rate End-Tidal CO2 06/27/22 15:42 06/27/22 15:42 06/27/22 15:43 Temperature Temperature Source Pulse Rate 60 Pulse Rate [Apical] Pulse Rate from SpO2 Sensor 60 Pulse Rhythm Pulse Rhythm [Apical] Pulse Strength Respiratory Rate 24 Respiratory Effort / Characteristics Respiratory Depth Respiratory Pattern Blood Pressure 97/71 L 150/71 H Blood Pressure [Right Arm] Blood Pressure Mean 79 97 Blood Pressure Mean [Right Arm] Blood Pressure Position Pulse Oximetry 95 Oxygen Delivery Method Fraction of Inspired Oxygen Sepsis Recent Fever Within 48 Hours Sepsis New/Unexplained Change in Mental Status Sepsis Action Taken by Nursing Arterial BP Systolic Arterial BP Diastolic Arterial BP Mean Arterial Pulse Rate End-Tidal CO2 06/27/22 15:43 06/27/22 15:45 06/27/22 15:45 Temperature Temperature Source Pulse Rate 60 60 Pulse Rate [Apical] Pulse Rate from SpO2 Sensor 59 L 61 Pulse Rhythm Pulse Rhythm [Apical] Pulse Strength Respiratory Rate 23 Respiratory Effort / Characteristics Respiratory Depth Respiratory Pattern Blood Pressure 148/62 H Blood Pressure [Right Arm] Blood Pressure Mean 90 Blood Pressure Mean [Right Arm] Blood Pressure Position Pulse Oximetry 97 94 Oxygen Delivery Method Fraction of Inspired Oxygen Sepsis Recent Fever Within 48 Hours Sepsis New/Unexplained Change in Mental Status Sepsis Action Taken by Nursing Arterial BP Systolic Arterial BP Diastolic Arterial BP Mean Arterial Pulse Rate End-Tidal CO2 06/27/22 15:50 06/27/22 15:51 06/27/22 15:51 Temperature Temperature Source Pulse Rate 60 60 Pulse Rate [Apical] Pulse Rate from SpO2 Sensor 59 L 60 Pulse Rhythm Pulse Rhythm [Apical] Pulse Strength Respiratory Rate 24 23 Respiratory Effort / Characteristics Respiratory Depth Respiratory Pattern Blood Pressure 148/92 H Blood Pressure [Right Arm] Blood Pressure Mean 110 Blood Pressure Mean [Right Arm] Blood Pressure Position Pulse Oximetry 100 92 Oxygen Delivery Method Fraction of Inspired Oxygen Sepsis Recent Fever Within 48 Hours Sepsis New/Unexplained Change in Mental Status Sepsis Action Taken by Nursing Arterial BP Systolic Arterial BP Diastolic Arterial BP Mean Arterial Pulse Rate End-Tidal CO2 06/27/22 15:55 06/27/22 15:55 06/27/22 16:00 Temperature Temperature Source Pulse Rate 60 Pulse Rate [Apical] Pulse Rate from SpO2 Sensor 60 Pulse Rhythm Pulse Rhythm [Apical] Pulse Strength Respiratory Rate 20 Respiratory Effort / Characteristics Respiratory Depth Respiratory Pattern Blood Pressure 168/70 H 171/73 H Blood Pressure [Right Arm] Blood Pressure Mean 102 105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
[2022-06-27 11:59] LABS: Hematocrit (blood only) 36.1 % (34.1-44.9); Hemoglobin 11.8 g/dl (12.0-16.0); Mean Corpuscular Hemoglobin 31.5 pg (25.0-34.0); Mean Corpuscular Hgb Conc 32.7 g/dL (32.0-36.0); Mean Corpuscular Volume 96.3 fL (80.0-100.0); Mean Platelet Volume 11.3 fL (9.4-12.3); Platelet Count 64 K/uL (130-400); RDW Coefficient of Variation 15.3 % (11.5-14.5); RDW Standard Deviation 54.2 fL (36.4-46.3); Red Blood Count 3.75 M/uL (3.93-5.22); White Blood Count 5.42 K/ul (4.8-10.8)
[2022-06-27 12:07] LABS: INR 1.1 (0.9-1.1); Partial Thromboplastin Ratio 1.3; Prothrombin Time 11.3 Seconds (9.0-12.0)
[2022-06-27 12:13] LABS: Basophils # (auto) 0.01 K/uL (0-0.2); Basophils % (auto) 0.2 %; Eosinophils # (auto) 0.13 K/uL (0-0.50); Eosinophils % (auto) 2.4 %; Immature Granulocytes # (auto) 0.04 K/uL (0.00-0.02); Immature Granulocytes % (auto) 0.7 %; Lymphocytes # (auto) 0.51 K/uL (1.2-3.4); Lymphocytes % (auto) 9.4 %; Monocytes # (auto) 0.43 K/uL (0.24-0.82); Monocytes % (auto) 7.9 %; Neutrophils % (auto) 79.4 %
[2022-06-27 12:20] LABS: Influenza A virus by PCR Negative (Neg); Influenza B virus by PCR Negative (Neg); RSV by PCR Negative (Neg)
--- NOTE | 2022-06-27 12:21 | XRay Report ---
SINGLE VIEW CHEST CLINICAL HISTORY: Fall. FINDINGS: An AP, portable, upright chest radiograph is compared to study dated 03/20/2020 and correlate d with chest CT dated 09/07/2019. The examination is degraded by portable technique and apical lordoti c positioning. A 3-lead cardiac AICD is unchanged in position and partially obscures the left apex. A stent projects over the left axillary region. The heart is enlarged and noting atherosclerotic calci fication of the thoracic aorta. The pulmonary vasculature is noncongested. Chronic interstitial thick ening is similar to previous. Scarring/atelectasis is noted at the lung bases. No airspace consolidat ion or large pleural effusion is identified. No pneumothorax is seen. The skeletal structures are ost eopenic. The bony thorax is grossly intact. A tiny metallic foreign body is again seen in the soft ti ssues of the right shoulder. IMPRESSION: 1. Cardiomegaly and AICD without radiographic evidence of congestive failure. 2. No airspace consolidation or large pleural effusion is identified. ACT 112: Negative or not required by law. Electronically signed by: Colten Jacinto M.D. 06/27/2022 12:20 PM
[2022-06-27 12:22] LABS: Albumin Level 3.7 gm/dl (3.4-5.0); BUN Creatinine Ratio 7.3 (10-20); Bilirubin Direct 0.1 mg/dl (0-0.2); Bilirubin,Total 0.6 mg/dl (0.2-1.0); Calcium 8.4 mg/dl (8.5-10.1); Creatinine Clr Calc Pharmacy 5.4 ml/min; Est GFR (African American) 5.7 ml/min; Potassium 4.6 mmol/L (3.5-5.1); Total Protein 6.6 gm/dl (6.0-8.3)
[2022-06-27 12:23] LABS: SARS CoV2 RNA(COVID-19) Ceph POSITIVE (Negative)
--- NOTE | 2022-06-27 12:24 | XRay Report ---
XR humerus RT 2V, XR shoulder RT min 2V routine CLINICAL HISTORY: fall. Right shoulder and arm pain. COMPARISON STUDY: Right shoulder 01/16/2022.. FINDINGS: No fracture or dislocation within the right shoulder or right humerus. There is soft tissue swelling within the right shoulder with a possible moderate effusion within the glenohumeral joint. Moderate degenerative changes at the navicular and glenohumeral joint are also noted. The right clavi sukhdev appears intact. A punctate metallic density overlying the proximal shaft of the humerus. This rem ains unchanged. Narrowing of the subacromial space consistent with chronic rotator cuff injury which is also unchanged. No significant elbow effusion. The bones are osteopenic. IMPRESSION: 1. No acute fracture or dislocation within the right shoulder or right humerus. 2. Soft tissue swelling within the right shoulder with a moderate joint effusion. ACT 112: Negative or not required by law. Electronically signed by: Cristian Renteria M.D. 06/27/2022 12:22 PM
--- NOTE | 2022-06-27 12:32 | CT Scan Report ---
CT SCAN OF THE CERVICAL SPINE CLINICAL HISTORY: Fall. COMPARISON STUDY: CT of the cervical spine dated 01/16/2022. TECHNIQUE: CT scan of the cervical spine is performed from the skull base to the upper thoracic spine . Images are reviewed in the axial, sagittal, and coronal planes. IV contrast was not administered fo r this examination. A dose lowering technique was utilized adhering to the principles of ALARA. CT DOSE: 950.54 mGy.cm FINDINGS: Skeletal structures: The skeletal structures are osteopenic. There is no evidence of fracture or subl uxation involving the cervical spine. Vertebral body height is maintained. There is minimal anteroli sthesis at C4-C5 and C5-C6. Alignment is otherwise preserved. There is straightening of the cervical lordosis. Anterior osteophytes are seen throughout. The odontoid process and lateral masses are intac t. The atlantoaxial articulation is preserved noting productive degenerative change. The spinous proc esses appear intact. There is moderate to advanced multilevel cervical spondylosis. Uncovertebral and facet arthropathy contribute to neural foraminal narrowing at most levels. Intervertebral discs: There is advanced disc space narrowing at C6-C7. Mild to moderate disc space na rrowing is seen at the remaining cervical levels. Central canal: Widely patent. Soft tissues: The prevertebral and paraspinous soft tissues are within normal limits. There is athero sclerotic calcification of the carotid bulbs. Pacemaker leads are noted at the left thoracic inlet. Calvarium: The visualized calvarium at the skull base appears intact. Brain parenchyma: Partially visualized brain parenchyma at the skull base is within normal limits. Sinuses and mastoids: The visualized paranasal sinuses are clear. There is a right mastoid effusion. The left mastoid air cells are well pneumatized. Lung apices: Clear as visualized. IMPRESSION: 1. There is no evidence of fracture or subluxation involving the cervical spine. 2. Osteopenia and spondylitic change as above. ACT 112: Negative or not required by law. Electronically signed by: Colten Jacinto M.D. 06/27/2022 12:30 PM
--- NOTE | 2022-06-27 12:40 | CT Scan Report ---
CT SCAN OF THE BRAIN WITHOUT IV CONTRAST CLINICAL HISTORY: Fall. COMPARISON STUDY: CT of the brain dated 01/16/2022. TECHNIQUE: Unenhanced axial CT scan of the brain is performed from the vertex to the skull base. A do se lowering technique was utilized adhering to the principles of ALARA. FINDINGS: Brain parenchyma: There is an acute subdural hemorrhage identified along the right convexity. This me asures up to 13 mm in diameter and effaces the subjacent cortical sulci. There is also subdural hemor rhage along the right posterior falx and the right tentorium cerebelli. This measures up to 5 mm in t hickness. No additional foci There is age-related involutional change noting moderate subcortical and periventricular microangiopathic disease. There is no parenchymal hematoma, midline shift, or eviden ce of acute territorial ischemia by CT criteria. Cutler-white matter differentiation is preserved. Mine ralization is noted in the basal ganglia. Ventricles, sulci, cisterns: Prominent secondary to involutional change. Intracranial vasculature: There is atherosclerotic calcification of the cavernous carotid and vertebr al artery. Calvarium: The skeletal structures are osteopenic. No depressed calvarial fracture is seen. Soft tissues: There is a right parietal scalp contusion. Sinuses and mastoids: The paranasal sinuses are clear. There is a right mastoid effusion. The left ma stoid air cells are well pneumatized. Orbits: The bony orbits are grossly intact. There are bilateral ocular lens implants. IMPRESSION: 1. Acute subdural hemorrhages along the right convexity, the posterior falx, and the right tentorium cerebelli as above. 2. This causes mild mass effect on the subjacent cortical sulci. 3. There is no midline shift or evidence of acute territorial ischemia by CT criteria. ACT 112: Negative or not required by law. Electronically signed by: Colten Jacinto M.D. 06/27/2022 12:37 PM
--- NOTE | 2022-06-27 15:22 | Electrocardiogram Report ---
Test Reason : Blood Pressure : / mmHG Vent. Rate : 067 BPM Atrial Rate : 034 BPM P-R Int : 178 ms QRS Dur : 168 ms QT Int : 530 ms P-R-T Axes : 000 259 081 degrees QTc Int : 560 ms AV dual-paced rhythm Abnormal ECG When compared with ECG of 28-DEC-2020 10:09, Vent. rate has increased BY 4 BPM Confirmed by Tristan Carr ([id number]) on 06/27/2022 3:22:11 PM Referred By: REFERRED SELF Confirmed By:Tristan Carr
--- NOTE | 2022-06-27 15:41 | CT Scan Report ---
CT OF THE HEAD WITHOUT CONTRAST CLINICAL HISTORY: Altered mental status. COMPARISON STUDY: Head CT June 27, 2022 at 12:[address] DOSE: 537.48 mGy.cm TECHNIQUE: Helical axial images of the head were obtained without IV contrast. Automated exposure con trol was utilized for the study. A dose lowering technique was utilized adhering to the principles o f ALARA. FINDINGS: Acute right-sided extra axial hematoma has significantly increased in size and density [facility] e head CT performed earlier today. The hematoma now measures up to 1.5 cm in maximal thickness. An ep idural component superimposed upon a subdural hematoma cannot be excluded given the lenticular config uration of the hematoma. Mass effect has significantly increased. There is 1.1 cm of leftward midline shift and compression of the right lateral ventricle. There is also developing subfalcine shift and possible herniation. There is no evidence for uncal herniation at this time. Subdural hemorrhage reji g the right tentorium is noted. There is also suspected trace hemorrhage along the left groin. There may be trace hemorrhage within the third ventricle. Bilateral basal ganglia calcification is noted. T here are calcifications within the bilateral cerebellar hemispheres which are chronic. A right pariet al scalp contusion is present. There is no acute calvarial fracture. Right mastoid air cells are part ially opacified. This is unchanged from earlier head CT of January 16, 2022. IMPRESSION: Significant increase in size and density of the acute extraaxial hematoma overlying the right convexity. The majority of the hemorrhage is subdural however a superimposed epidural hematoma cannot be excluded. Significant increase in mass effect with sulcal effacement, leftward midline shif t, compression of the right lateral ventricle and subfalcine shift with possible early herniation. Fi ndsandra discussed with Dr. Natarajan at time of dictation. ACT 112: Negative or not required by law. Electronically signed by: Orlando Patterson M.D. 06/27/2022 3:39 PM
[2022-06-27] MEDS ORDERED: RAPID SEQUENCE INDUCTION BAG ONE (15:49)
[2022-06-27] MEDS ORDERED: MANNITOL 25% 12.5 GM/50 ML VIAL IV ONE ×2 (16:00→16:17)
[2022-06-27] MEDS ORDERED: LIDOCAINE 1%/EPINEPHRINE 1:100,000 50 ML VIAL ONE (16:02)
[2022-06-27] MEDS ORDERED: 1.2 MICRON FILTER 1 EACH IV ONE (16:09)
[2022-06-27] MEDS ORDERED: MANNITOL IV STA (16:09)
--- NOTE | 2022-06-27 16:10 | Communication Note ---
Date of Service: June 27, 2022 I was delegated by my attending physician to contact POA to discuss care of patient moving forward. Please see note for chain of events. 1602: Attempted to contact POA, Anca Ventura ([phone]). No answer. 1604: Attempted to contact son, Sergei Lopez ([phone]). No answer. No voicemail setup. 1606: Attempted to contact, Starr Markham ([phone]). No answer. Voicemail left for return call. 161: Return call from Starr Markham. She suggests attempting to call POA - Anca Ventura regarding decision making. 161: Reached out to Anca Ventura, (cell phone). I confirmed the patient with Anca. She confirms that she is the POA for the patient and makes all medical decisions for the patient. She does report that the patient does have a son, Sergei Lopez, and he is involved with the patient, but is not the POA as he lives in [place]. She aware that the patient is in the Emergency Department. She was updated that the patient had been intubated due to decline in mental status and inability to protect airway. Did discuss that this change in mental status appears to be a direct result of worsening intracranial bleeding and increasing pressure in the brain. She states that she has already looked into condition online and expresses her understanding that the patient would need a surgery to relieve the pressure. I did explain to her that at this point, due to a combination of poor weather and lack of transportation, that we are currently unable to transfer her loved one to a tertiary care facility with neurosurgery capabilities. I explained that at this point the options would be to do nothing, which would most likely result in catastrophic neurological outcome and , versus attempt to perform bedside burhole procedure in an attempt to relive the pressure. She reports that she had been performing some research on the condition and had seen that a hole in the skull would be necessary. I explained in great detail that we do not have any providers at this institution who are formally trained in neurosurgery and that any attempt to perform burhole would be by a provider without this training. I emphasized the risk in this procedure and the chances of brain injury, infection, procedural complications up to and including or catastrophic disability. Despite her understanding of our lack of trained neurosurgery capabilities, the riskiness of the procedure, and the possibility of injury or , she gives her verbal consent to proceed with bedside cranial burhole procedure. When discussing the procedure, she also reported that the patient has a living will in which she would want to pass if her heart were to stop. I clarified the code status with the POA. She informs me that she is comfortable with the current intubation with ventilation. She is comfortable with an attempt to relieve the pressure from around the brain. She does note that if the patient's heart were to stop beating or she were to otherwise require aggressive heroic measures for resuscitation, the patient would not want them. I confirmed again that the patient's status should reflect no chest compressions, no defibrillation, no ACLS medications. Anca was also comfortable with the placement of central and arterial lines as needed for the current state of active extremis. I have personally spent 35 minutes of critical care time in the direct management of this patient. This is a life/limb threatening event. This includes time spent evaluating patient, direct bedside care, chart review, placing orders, interpretation of diagnostic studies, discussion with consultants, patient, and family members, as well as other required patient management activities. This time is exclusive of all separately billable procedures, and teaching time and separate from and in addition to any other critical care service time. Coding Level of Care Code Critical Care leatha mcknight'quyen 30 min Time Spent (min) 35
[2022-06-27 16:13] VITALS: PULSE 60
[2022-06-27] MEDS ORDERED: STAT IV STA ×2 (16:15→16:33)
[2022-06-27] MEDS ORDERED: SODIUM CHLORIDE 3 % 300 ML IV ONE (16:15)
[2022-06-27] MEDS ORDERED: DESMOPRESSIN ACETATE 18 MCG in SODIUM CHLORIDE 0.9% 50 ML IV STA (16:15)
--- NOTE | 2022-06-27 16:21 | XRay Report ---
SINGLE VIEW CHEST CLINICAL HISTORY: Endotracheal tube placement. FINDINGS: An AP, portable, upright chest radiograph is compared to study performed earlier the same d ay 06/27/2022 and correlated with chest CT dated 09/07/2019. The examination is degraded by portable t echnique and patient rotation. An endotracheal tube has been placed. The tip projects over the right mainstem bronchus. A 3-lead cardiac AICD is unchanged in position and partially obscures the left the chest. A stent projects over the left axillary region. The heart is enlarged and noting atherosclero tic calcification of the thoracic aorta. The pulmonary vasculature is noncongested. Chronic interstit ial thickening is similar to previous. There is increasing bibasilar atelectasis. No airspace consoli dation or large pleural effusion is identified. No pneumothorax is seen. The skeletal structures are osteopenic. The bony thorax is grossly intact. A tiny metallic foreign body is again seen in the soft tissues of the right shoulder. IMPRESSION: 1. An endotracheal tube has been placed. The tip projects over the right mainstem bronchus and reposi tioning is indicated. 2. Cardiomegaly and AICD without radiographic evidence of congestive failure. 3. Increasing bibasilar atelectasis. ACT 112: Negative or not required by law. Electronically signed by: Colten Jacinto M.D. 06/27/2022 4:20 PM
[2022-06-27] MEDS ORDERED: ceFAZolin 2,000 MG/15 ML IV PUSH IV ONE (16:33)
[2022-06-27] MEDS ORDERED: SODIUM CHLORIDE 3 % 100 ML IV ONE (16:33)
--- NOTE | 2022-06-27 17:32 | History & Physical Report ---
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 head were obtained without IV contrast. Automated exposure control was utilized for the study. A dose lowering technique was utilized adhering to the principles of ALARA. FINDINGS: Acute right-sided extra axial hematoma has significantly increased in size and density since head CT performed earlier today. The hematoma now measures up to 1.5 cm in maximal thickness. An epidural component superimposed upon a subdural hematoma cannot be excluded given the lenticular configuration of the hematoma. Mass effect has significantly increased. There is 1.1 cm of leftward midline shift and compression of the right lateral ventricle. There is also developing subfalcine shift and possible herniation. There is no evidence for uncal herniation at this time. Subdural hemorrhage along the right tentorium is noted. There is also suspected trace hemorrhage along the left groin. There may be trace hemorrhage within the third ventricle. Bilateral basal ganglia calcification is noted. There are calcifications within the bilateral cerebellar hemispheres which are chronic. A right parietal scalp contusion is present. There is no acute calvarial fracture. Right mastoid air cells are partially opacified. This is unchanged from earlier head CT of January 16, 2022. IMPRESSION: Significant increase in size and density of the acute extraaxial hematoma overlying the right convexity. The majority of the hemorrhage is subdural however a superimposed epidural hematoma cannot be excluded. Signifi cant increase in mass effect with sulcal effacement, leftward midline shift, compression of the right lateral ventricle and subfalcine shift with possible early herniation. Findings discussed with Dr. Natarajan at time of dictation. ACT 112: Negative or not required by law. Electronically signed by: Orlando Patterson M.D. 06/27/2022 3:39 PM Chest X-Ray 06/27/22 16:03 SINGLE VIEW CHEST CLINICAL HISTORY: Endotracheal tube placement. FINDINGS: An AP, portable, upright chest radiograph is compared to study performed earlier the same day 06/27/2022 and correlated with chest CT dated 09/07/2019. The examination is degraded by portable technique and patient rotation. An endotracheal tube has been placed. The tip projects over the right mainstem bronchus. A 3-lead cardiac AICD is unchanged in position and partially obscures the left the chest. A stent projects over the left axillary region. The heart is enlarged and noting atherosclerotic calcification of the thoracic aorta. The pulmonary vasculature is noncongested. Chronic interstitial thickening is similar to previous. There is increasing bibasilar atelectasis. No airspace consolidation or large pleural effusion is identified. No pneumothorax is seen. The skeletal structures are osteopenic. The bony thorax is grossly intact. A tiny metallic foreign body is again seen in the soft tissues of the right shoulder. IMPRESSION: 1. An endotracheal tube has been placed. The tip projects over the right mainstem bronchus and repositioning is indicated. 2. Cardiomegaly and AICD without radiographic evidence of congestive failure. 3. Increasing bibasilar atelectasis. ACT 112: Negative or not required by law. Electronically signed by: Colten Jacinto M.D. 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
[2022-06-27] MEDS ORDERED: SODIUM CHLORIDE 0.9% 1000ML 1,000 ML IV ONE (17:35)
--- NOTE | 2022-06-27 17:49 | CT Scan Report ---
CT OF THE HEAD WITHOUT CONTRAST CLINICAL HISTORY: Post lashae hole. COMPARISON STUDY: Head CT June 27, 2022 at 3:[address] DOSE: 537.48 mGy.cm TECHNIQUE: Helical axial images of the head were obtained without IV contrast. Automated exposure con trol was utilized for the study. A dose lowering technique was utilized adhering to the principles o f ALARA. FINDINGS: Endotracheal and nasogastric tubes are partially imaged. Interval placement of a right-side d lashae hole is noted, overlying the largest component of the acute extra-axial hematoma overlying the right convexity. There is gas within this hematoma. This hematoma has increased in size since prior head CT, measuring 1.8 cm in maximal thickness. This has a lenticular configuration and may reflect a n epidural hematoma. Additional subdural hemorrhage overlying the right cerebral hemisphere has also increased since prior exam. This contains a fluid fluid level. Mass effect is increased is 1.3 cm of leftward midline shift, compression of the right lateral ventricle and subfalcine herniation. There i s no evidence for uncal herniation at this time. White matter hypodensities are again noted. There is bilateral basal ganglia and cerebellar hemispheric calcifications. Trace free fluid within the right mastoid air cells is unchanged. There is no acute calvarial fracture. IMPRESSION: Interval placement of a right lashae hole with gas now noted in hematoma. Increase in size of the acute extra-axial hematoma overlying the right cerebral hemisphere. The largest component of the hematoma may reflect an epidural hematoma given the configuration. Additional extra-axial hemorrh age is l subdural. Increase in mass effect with significant leftward midline shift, compression of th e right lateral ventricle and subfalcine herniation. ACT 112: Negative or not required by law. Electronically signed by: Orlando Patterson M.D. 06/27/2022 5:46 PM
--- NOTE | 2022-06-27 18:31 | Procedure Note ---
Procedure Note Date of Service June 27, 2022 Note Procedure date: Noted above Procedure: Right femoral artery cannulation Pre-procedure Diagnosis: Need for invasive monitoring Post-procedure Diagnosis: same as above Prior to Procedure: Informed Consent: Emergent consent implied Attending Staff: Lara Lawson DO Skin Prep: Chlorhexidine Anesthesia: 3 mL 1% lidocaine without epinephrine The identity of the patient was confirmed and a bedside time out was performed. Description of Procedure: After sterile prep and sterile drape utilizing standard sterile technique the superficial skin of the right femoral artery was anesthetized. The target artery was identified by palpation and entered with a 20-gauge arrow Angiocath. Pulsatile bright red blood return was noted. Via modified Seldinger technique the self-contained guidewire was advanced and the Angiocath advanced over the guidewire. The guidewire was removed and brisk arterial blood return was noted. The pressure monitor was connected, and the arterial line was secured via silk suture. A sterile dressing was then applied. Complications: None Estimated blood loss: Trace Patient tolerated the procedure well. Coding CPT Codes Tubes, Drains, and Vasc Access - Tubes, Drains, and Vasc Access: [id number] Place Catheter In Artery ([id number]) [facility] [place] Procedure Codes (Charges) Tubes, Drains, and Vasc Access Procedure 1: Tubes, Drains, and Vasc Access: [id number] Place Catheter In Artery
--- NOTE | 2022-06-27 18:33 | Procedure Note ---
Procedure Note Date of Service June 27, 2022 Note Procedure date: Noted above Procedure: Central venous access Pre-procedure indication: Need for vasoactive medication administration Post-procedure Diagnosis: same as above Prior to Procedure: Informed Consent: Emergent consent implied Attending Staff: Lraa Lawson DO Resident/APC: Lachelle Langston Skin Prep: Chlorhexidine Anesthesia: 4 mL 1% lidocaine without epinephrine The identity of the patient was confirmed and a bedside time out was performed. Description of Procedure: After sterile prep and sterile drape utilizing standard sterile technique the superficial skin of the right femoral area was anesthetized. The target vessel was identified and entered with an 18-gauge needle. Dark venous blood return was noted. A guidewire was inserted through the needle and into the vessel. The needle was withdrawn and a skin lee was made. A tissue dilator was advanced via Seldinger technique and removed. A triple lumen catheter was inserted via Seldinger technique and the guidewire removed. All ports ashley and flushed easily. A Biopatch was placed, and the catheter was secured via commercial securement device. A sterile dressing was then applied. Complications: None Estimated blood loss: Trace Patient tolerated the procedure well. Coding CPT Codes Tubes, Drains, and Vasc Access - Tubes, Drains, and Vasc Access: [id number] Insertion Of Non-tunneled Catheter Age 5 Yrs> ([id number]) [facility] [place] Procedure Codes (Charges) Tubes, Drains, and Vasc Access Procedure 1: Tubes, Drains, and Vasc Access: [id number] Insertion Of Non-tunneled Catheter Age 5 Yrs>
--- NOTE | 2022-06-27 18:38 | Procedure Note ---
Procedure Note Date of Service June 27, 2022 Note Procedure date: Noted above Procedure: Cranial bur hole Pre-procedure indication: Subdural hematoma, herniation syndrome Post-procedure Diagnosis: same as above Prior to Procedure: Informed Consent: The risks, benefits, indications, potential complications, and alternatives were explained to the patient's field support representative by my physician library serials assistant emergently, additionally emergent consent was also implied. Attending Staff: Lara Lawson DO Resident/APC: Lachelle Langston Skin Prep: Chlorhexidine Anesthesia: 5 mL 1% lidocaine with epinephrine The identity of the patient was confirmed and a bedside time out was performed. Description of Procedure: The right side of the patient's scalp was shaved with hair clippers. The scalp was prepped with chlorhexidine and draped in a sterile fashion. The incision area was marked with a marking pen and anesthetized. Utilizing a 10 blade a 3 cm transverse incision was made over the right temporoparietal area. The soft tissues were spread and the periosteum was lifted via blunt dissection. Utilizing approximately 5 mm cranial drill a bur hole was made in the center of the exposed skull. Extreme care was taken until a release of pressure was felt. Upon removal of the drill bit dark blood spurted from the bur hole. Blood was allowed to drain and suction. A second bur hole was made approximately 3 mm lateral to the initial bur hole. Again, extreme care was taken with the drill until there was a release of pressure. The bone in between the 2 bur holes was rongeured out, this did allow for more blood to egress from the intracranial cavity. The hole was observed for several minutes allowing for continued drainage, when it appeared that there was venous oozing a 2 x 2 gauze was placed over the bur hole covered with 4 x 4 gauze which was covered by an ABD and then bandage was placed. A repeat CT scan was ordered and has been reviewed. Complications: None apparent Estimated blood loss: 10 mL Coding [facility] [place] Procedure Codes (Charges) Indication for Procedure Indication for procedure: CPT: 89461
--- NOTE | 2022-06-27 18:49 | Critical Care Consultation ---
Date of Consultation June 27, 2022 Assessment & Plan (1) End stage renal disease on dialysis: (2) Traumatic subdural hematoma: (3) Brain herniation: Plan Reason Critically Ill: 76-year-old female with herniation syndrome PLAN: Neuro: Herniation syndrome Subdural hematoma Possible epidural hematoma -Patient previously high functioning given acute herniation secondary to active hemorrhage decision was made to proceed with bur hole placement -Per ED physician there was a four-way conversation between trauma, ED, neurosurgery, patient's POA who at this time have elected to make the patient comfort measures. Resp: Respiratory insufficiency secondary to herniation syndrome -Intubation mechanical ventilation -Initially hyperventilated for 20 minutes to decrease ICP CV: Hypertension -Anticipate Channahon's response Fluids/Renal: End-stage renal disease: Friday -Missed dialysis Friday ID: COVID-19 positive -COVID isolation GI/Nutrition: N.p.o. Heme: Coagulopathy secondary to azotemia from renal disease -0.3 mcg/kg IV x1 to possibly counteract patient's azotemia DVT prophylaxis: Contraindicated secondary to active hemorrhage Vascular access: Right femoral CVL, right arterial line Code Status: Comfort measures: Expectant management Disposition: ICU Supervising Physician Co-Signing Physician Notes I have personally spent 95 minutes of critical care time in the direct management of this patient. This is a life/limb threatening event. This includes time spent evaluating patient, direct bedside care, chart review, placing orders, interpretation of diagnostic studies, discussion with consultants, patient, and/or family members regarding treatment decisions, as w ell as other required patient management activities. This time is exclusive of all separately billable procedures, and teaching time and separate from and in addition to any other critical care service time. History of Present Illness Reason for Consultation: Acute traumatic subdural hematoma, herniation syndrome Requesting Physician: Jeramie Natarajan Attending Physician: Cheryl Ricketts History of Present Illness History is obtained from prior records and emergency medicine physician. History is unobtainable from the patient. Patient is a 76-year-old female with end-stage renal disease on hemodialysis Friday who suffered a fall this morning. She is not on blood thinners and takes a baby aspirin daily. She missed her Friday dialysis and did not make dialysis today secondary to the fall. She was seen in the emergency department and was diagnosed with a traumatic subdural hematoma. The emergency department consulted with [facility]. She was excepted as a trauma patient; however, there is a significant snowstorm [place] interstate [place]. There were no EMS transfers available. I discussed with the ED provider regarding possible admission while awaiting transfer to [facility]. Patient was reported to have a GCS of 15, stable vital signs and labs, the decision was made not to admit the patient and remain in the emergency department until transportation became available and or weather improved. I discussed the case with Dr. Rasmussen and briefly with administration to see if we could facilitate any form of transfer. I was later contacted by Dr. Natarajan that the patient became more confused, they were obtaining a stat CT scan and possibly intubating the patient. Immediately immobilized my staff to obtain bur hole craniotomy equipment as I was anticipating a life-threatening extension of bleeding herniation syndrome with out a reasonable expectation for transfer to a facility with definitive care and need for a emergently placed burrhole. Patient had been intubated upon my presentation, for my exam the patient was a GCS of Glascow Coma Scale: Eyes: 1, Verbal 1T, Motor 1P, Total 3 TP however the pupils were round and reactive to light, they were not unequal. I discussed with Dr. Natarajan, the patient while having multiple medical issues she was high functioning and reported to be living independently. Attempts were made to contact surrogate decision makers while I prepared the patient given the life-threatening herniation syndrome. She was hyperventilated as well as administered mannitol and hypertonic saline and DDAVP were ordered. Eventually the patient's power of cloth bleaching range back tender was able to be contacted, she confirmed the patient would be comfortable proceeding with the potentially life saving intervention given the life-threatening and debilitating nature of the underlying pathology. Given that she was also high functioning and there is no reasonable expectation of expeditious transfer the decision was made to proceed with an emergent bur hole and evacuation of subdural hematoma. Allergies Allergy/AdvReac Type Severity Reaction Status Date / Time strawberry Allergy Severe EDEMA OF Verified 06/27/22 15:31 FACE /LIPS /TONGUE adhesive Allergy Mild RXN TO Verified 06/27/22 15:31 ADHESIVE ON NITRO PATCH DESIREE Inhibitors AdvReac Intermediate COUGH Verified 06/27/22 15:31 amlodipine AdvReac Intermediate RETAIN Verified 06/27/22 15:31 FLUID diphenhydramine AdvReac Intermediate VERY WEAK, Verified 06/27/22 15:31 CHF lisinopril AdvReac Intermediate COUGH Verified 06/27/22 15:31 nitroglycerin AdvReac Intermediate HEADACHE/NA Verified 06/27/22 15:31 USEA Sulfa (Sulfonamide AdvReac Intermediate "KNOCKS ME Verified 06/27/22 15:31 Antibiotics) OUT" Home Medications Medication Instructions Recorded Confirmed Type amiodarone 200 mg tablet 200 mg PO QAM 10/30/18 06/27/22 History atorvastatin 40 mg tablet 40 mg PO HS 10/30/18 06/27/22 History carvedilol 25 mg tablet 25 mg PO BID 10/30/18 06/27/22 History insulin glargine 100 unit/mL (3 5 units subcut PM 10/30/18 06/27/22 History mL) subcutaneous pen (Lantus Solostar U-100 Insulin) torsemide 20 mg tablet 20 mg PO QAM 10/30/18 06/27/22 History hydralazine 50 mg tablet 50 mg PO BID 04/27/19 06/27/22 History lorazepam 0.5 mg tablet (Ativan) 0.5 mg PO DAILY PRN Anxiety 04/27/19 06/27/22 History acetaminophen 500 mg tablet 1,000 mg PO Q6H PRN Pain 09/03/19 06/27/22 History albuterol sulfate 90 mcg/actuation 2 puff inhalation Q4 PRN Shortness 09/03/19 06/27/22 History aerosol inhaler Of Breath Or Wheezing docusate sodium 100 mg tablet 100 mg PO BID 09/03/19 06/27/22 History lidocaine-prilocaine 2.5 %-2.5 % 1 applic topical UD 09/03/19 06/27/22 History topical cream polyethylene glycol 3350 17 gram 8.5 g PO DAILY PRN Constipation 09/03/19 06/27/22 History oral powder packet (Miralax) Bacillus coagulans 10 billion cell 0 cell PO DAILY 05/14/20 06/27/22 History capsule,delayed release (Probiotic (B. coagulans)) calcium acetate(phosphat bind) 667 667 mg PO TIDM 05/14/20 06/27/22 History mg capsule loratadine 10 mg tablet (Claritin) 10 mg PO Q OTHER DAY 05/14/20 06/27/22 History hydrocortisone 2.5 % topical cream 1 applic EXT BID PRN hemorrhoids 05/17/20 06/27/22 Rx with perineal applicator #30 grams (Proctosol HC) aspirin 81 mg tablet,delayed 81 mg PO DAILY 12/28/20 06/27/22 History release insulin aspart U-100 100 unit/mL 3 - 6 unit subcut UD 12/28/20 06/27/22 History (3 mL) subcutaneous pen (Novolog Flexpen U-100 Insulin aspart) ipratropium 20 mcg-albuterol 100 1 puff inhalation Q4H PRN 12/28/20 06/27/22 History mcg/actuation mist for inhalation Shortness Of Breath Or Wheezing (Combivent Respimat) omeprazole 20 mg capsule,delayed 20 mg PO DAILY 12/28/20 06/27/22 History release cranberry 500 mg capsule 500 mg PO DAILY 05/27/22 06/27/22 History sertraline 50 mg tablet 50 mg PO DAILY 05/27/22 06/27/22 History ondansetron HCl 4 mg tablet 4 mg PO Q8H PRN NAUSEA/VOMITING 06/27/22 06/27/22 History Patient History Medical History Acute GI bleeding Anemia of renal disease Anxiety Biventricular ICD (implantable cardioverter-defibrillator) in place meditronic 01/2012 @ [facility] Cirrhosis Degenerative cervical disc Depression Diabetes mellitus, type II End-stage renal disease (ESRD) Endocarditis Pacemaker wire vegetation ESRD (end stage renal disease) on dialysis [id number] [place] GERD (gastroesophageal reflux disease) H/O TIA (transient ischemic attack) and stroke in --effected left side/balance Hearing deficit History of congestive heart failure History of recent blood transfusion 2 units PRBCS in May 2020 HTN (hypertension) Hx of supraventricular tachycardia Idiopathic cardiomyopathy Left bundle branch block (11/07/11) custodial (current) use of 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 currently not taking any--taken off since GI bleed in May Osteoarthritis Paroxysmal atrial fibrillation Pericardial effusion Proteinuria PVD (peripheral vascular disease) Secondary hyperparathyroidism Seizure hx of from ages 11-40s--unknown cause--was on dilantin, no meds now, no neurologist Slow transit constipation Streptococcus bovis infection Bacteremia with pacemaker lead vegetation Thrombocytopenia Vascular dialysis catheter in place Surgical History H/O dilation and curettage History of appendectomy History of cataract surgery bilt History of colonoscopy with polypectomy History of esophagogastroduodenoscopy (EGD) History of hysterectomy History of left breast biopsy benign History of left hip hemiarthroplasty History of right breast biopsy benign History of wisdom tooth extraction S/P pericardial surgery Pericardial window for pericardial effusion Family History Brother Diabetes Mother Diabetes Coronary heart disease Sister Diabetes Uncle Family history of esophageal cancer Other No family history of adverse response to anesthesia Social History Smoking Status: Never smoker 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); Hx Alcohol Use: No Hx Substance Use: No Preferred Language: Czech Communication Ability: Unable Division Head Required: No Beliefs That Will Affect Care: None marital status: / Current Living Situation: Alone How many Children do You have: 2 Assistive Devices: Walker Review of Systems Review of Systems: Unobtainable due to endotracheal tube Physical Exam Physical Exam: General: GCS 3 TP, patient had just been intubated Skin: Warm, dry, Head: Atraumatic Eyes: Pupils 4 mm and reactive to light Ears, nose, mouth and throat: airway obscured by endotracheal tube Cardiovascular: Normal peripheral perfusion Respiratory: Ventilator settings reviewed Gastrointestinal: Non distended Musculoskeletal: No deformity Results & Data Results & Data ([facility]) Vital Signs (Past 12 Hours) Vital Signs Temp Pulse Pulse Resp BP BP Pulse Ox 06/27/22 18:38 60 19 99 06/27/22 18:38 142/52 H 06/27/22 18:36 60 18 99 06/27/22 18:35 60 16 99 06/27/22 18:35 151/55 H 06/27/22 18:34 60 18 99 06/27/22 18:33 60 15 98 06/27/22 18:33 157/58 H 06/27/22 18:32 60 15 99 06/27/22 18:30 60 17 97 06/27/22 18:30 181/65 H 06/27/22 18:28 60 18 98 06/27/22 18:28 151/59 H 06/27/22 18:26 60 16 99 06/27/22 18:25 60 15 99 06/27/22 18:25 139/53 L 06/27/22 18:28 60 14 98 06/27/22 18:24 60 15 99 06/27/22 18:23 138/52 L 06/27/22 18:23 60 16 98 06/27/22 18:22 60 15 98 06/27/22 18:20 60 15 98 06/27/22 18:20 136/52 L 06/27/22 18:18 60 16 98 06/27/22 18:18 135/51 L 06/27/22 18:16 60 16 98 06/27/22 18:15 134/52 L 06/27/22 18:15 60 15 98 06/27/22 18:14 60 15 98 06/27/22 18:13 60 15 97 06/27/22 18:13 132/51 L 06/27/22 18:12 60 15 98 06/27/22 18:10 60 15 97 06/27/22 18:10 131/50 L 06/27/22 18:08 60 15 97 06/27/22 18:08 131/50 L 06/27/22 18:06 60 14 96 06/27/22 18:05 60 14 96 06/27/22 18:05 132/51 L 06/27/22 18:04 60 16 96 06/27/22 18:03 60 15 96 06/27/22 18:03 130/50 L 06/27/22 18:02 60 14 95 06/27/22 18:00 60 14 91 06/27/22 17:58 60 15 92 06/27/22 17:58 128/48 L 06/27/22 17:56 60 14 92 06/27/22 17:55 60 14 92 06/27/22 17:55 126/50 L 06/27/22 17:54 60 14 93 06/27/22 17:53 60 15 93 06/27/22 17:53 126/49 L 06/27/22 17:52 60 14 93 06/27/22 17:50 60 14 93 06/27/22 17:48 60 15 93 06/27/22 17:28 60 15 98 06/27/22 17:28 129/49 L 06/27/22 17:26 60 14 98 06/27/22 17:25 60 14 97 06/27/22 17:25 131/50 L 06/27/22 17:24 60 14 97 06/27/22 17:23 131/49 L 06/27/22 17:23 60 14 97 06/27/22 17:22 60 14 97 06/27/22 17:20 60 14 96 06/27/22 17:18 60 14 96 06/27/22 17:18 134/50 L 06/27/22 17:16 60 15 96 06/27/22 17:15 60 14 96 06/27/22 17:15 135/51 L 06/27/22 17:14 60 14 96 06/27/22 17:13 60 14 96 06/27/22 17:13 130/53 L 06/27/22 17:12 60 14 96 06/27/22 17:10 60 14 96 06/27/22 17:08 61 14 96 06/27/22 17:08 134/50 L 06/27/22 17:06 62 14 96 06/27/22 17:05 134/50 L 06/27/22 17:05 60 14 96 06/27/22 17:04 60 14 96 06/27/22 17:03 131/52 L 06/27/22 17:03 60 15 96 06/27/22 17:02 60 14 96 06/27/22 17:00 60 14 97 06/27/22 17:00 131/53 L 06/27/22 16:58 60 14 98 06/27/22 16:58 124/51 L 06/27/22 16:56 60 14 98 06/27/22 16:55 60 14 98 06/27/22 16:55 116/48 L 06/27/22 16:54 60 14 98 06/27/22 16:53 60 14 98 06/27/22 16:53 114/49 L 06/27/22 16:52 60 14 98 06/27/22 16:50 60 14 98 06/27/22 16:50 113/47 L 06/27/22 16:49 60 14 98 06/27/22 16:49 113/48 L 06/27/22 16:45 60 14 97 12/15/22 16:45 113/48 L 06/27/22 16:43 60 14 98 06/27/22 16:43 116/51 L 06/27/22 16:40 60 14 98 06/27/22 16:35 60 14 96 06/27/22 16:35 144/60 H 06/27/22 16:30 134/58 L 06/27/22 16:30 60 15 96 06/27/22 16:25 60 14 98 06/27/22 16:25 182/66 H 06/27/22 16:20 14 97 06/27/22 16:20 160/68 H 06/27/22 16:15 20 99 06/27/22 16:15 180/73 H 06/27/22 16:10 20 100 06/27/22 16:10 174/72 H 06/27/22 16:05 61 20 100 06/27/22 16:05 161/70 H 06/27/22 16:06 60 20 100 06/27/22 16:00 61 20 100 06/27/22 16:00 171/73 H 06/27/22 15:55 60 20 100 06/27/22 15:55 168/70 H 06/27/22 15:51 148/92 H 06/27/22 15:51 60 23 92 06/27/22 15:50 60 24 100 06/27/22 15:45 60 23 94 06/27/22 15:45 148/62 H 06/27/22 15:43 60 97 06/27/22 15:43 150/71 H 06/27/22 15:42 97/71 L 06/27/22 15:42 60 24 95 06/27/22 15:40 61 96 06/27/22 15:39 61 99 06/27/22 15:20 61 22 98 06/27/22 15:15 190/74 H 06/27/22 15:15 21 99 06/27/22 15:10 21 06/27/22 15:09 182/80 H 06/27/22 15:09 61 20 91 06/27/22 15:02 60 22 98 06/27/22 15:00 60 20 93 06/27/22 14:50 60 24 100 06/27/22 14:45 60 20 99 06/27/22 14:45 132/80 06/27/22 14:40 60 20 99 06/27/22 15:00 60 21 96 06/27/22 14:30 60 22 100 06/27/22 14:30 136/63 06/27/22 14:20 60 22 100 06/27/22 14:15 123/83 06/27/22 14:15 60 24 94 06/27/22 14:10 60 19 97 06/27/22 14:01 135/58 L 06/27/22 14:01 60 24 100 06/27/22 14:00 60 20 100 06/27/22 13:50 60 15 100 06/27/22 13:46 60 18 98 06/27/22 13:46 128/60 06/27/22 13:40 60 22 98 06/27/22 13:32 146/59 H 06/27/22 13:32 60 18 99 06/27/22 13:30 60 20 100 06/27/22 13:20 60 17 98 06/27/22 13:15 137/56 L 06/27/22 13:15 60 20 98 06/27/22 13:10 60 21 100 06/27/22 13:00 60 18 100 06/27/22 13:00 141/62 H 06/27/22 12:50 60 17 91 06/27/22 12:48 60 23 94 06/27/22 12:48 146/56 H 06/27/22 12:45 120/65 06/27/22 12:45 60 22 97 06/27/22 12:40 60 22 99 06/27/22 12:30 60 17 98 06/27/22 12:30 138/62 06/27/22 12:24 99 06/27/22 12:10 60 16 06/27/22 12:00 65 20 06/27/22 12:00 121/68 06/27/22 11:50 60 18 06/27/22 11:45 134/61 06/27/22 11:45 60 17 06/27/22 11:40 60 22 06/27/22 11:30 62 22 97 06/27/22 11:30 130/65 06/27/22 11:23 64 16 100 06/27/22 11:23 132/81 06/27/22 11:20 67 20 98 06/27/22 11:14 76 17 100 06/27/22 12:01 60 20 96 06/27/22 11:24 61 22 130/65 99 06/27/22 11:14 36.8 C 66 20 150/72 H 98 O2 Del Method FiO2 06/27/22 18:38 06/27/22 18:38 06/27/22 18:36 06/27/22 18:35 06/27/22 18:35 06/27/22 18:34 06/27/22 18:33 06/27/22 18:33 06/27/22 18:32 06/27/22 18:30 06/27/22 18:30 06/27/22 18:28 06/27/22 18:28 06/27/22 18:26 06/27/22 18:25 06/27/22 18:25 06/27/22 18:28 30 06/27/22 18:24 06/27/22 18:23 06/27/22 18:23 06/27/22 18:22 06/27/22 18:20 06/27/22 18:20 06/27/22 18:18 06/27/22 18:18 06/27/22 18:16 06/27/22 18:15 06/27/22 18:15 06/27/22 18:14 06/27/22 18:13 06/27/22 18:13 06/27/22 18:12 06/27/22 18:10 06/27/22 18:10 06/27/22 18:08 06/27/22 18:08 06/27/22 18:06 06/27/22 18:05 06/27/22 18:05 06/27/22 18:04 06/27/22 18:03 06/27/22 18:03 06/27/22 18:02 06/27/22 18:00 06/27/22 17:58 06/27/22 17:58 06/27/22 17:56 06/27/22 17:55 06/27/22 17:55 06/27/22 17:54 06/27/22 17:53 06/27/22 17:53 06/27/22 17:52 06/27/22 17:50 06/27/22 17:48 06/27/22 17:28 06/27/22 17:28 06/27/22 17:26 06/27/22 17:25 06/27/22 17:25 06/27/22 17:24 06/27/22 17:23 06/27/22 17:23 06/27/22 17:22 06/27/22 17:20 06/27/22 17:18 06/27/22 17:18 06/27/22 17:16 06/27/22 17:15 06/27/22 17:15 06/27/22 17:14 06/27/22 17:13 06/27/22 17:13 06/27/22 17:12 06/27/22 17:10 06/27/22 17:08 06/27/22 17:08 06/27/22 17:06 06/27/22 17:05 06/27/22 17:05 06/27/22 17:04 06/27/22 17:03 06/27/22 17:03 06/27/22 17:02 06/27/22 17:00 06/27/22 17:00 06/27/22 16:58 06/27/22 16:58 06/27/22 16:56 06/27/22 16:55 06/27/22 16:55 06/27/22 16:54 06/27/22 16:53 06/27/22 16:53 06/27/22 16:52 06/27/22 16:50 06/27/22 16:50 06/27/22 16:49 06/27/22 16:49 06/27/22 16:45 06/27/22 16:45 06/27/22 16:43 06/27/22 16:43 06/27/22 16:40 06/27/22 16:35 06/27/22 16:35 06/27/22 16:30 06/27/22 16:30 06/27/22 16:25 06/27/22 16:25 06/27/22 16:20 06/27/22 16:20 06/27/22 16:15 06/27/22 16:15 06/27/22 16:10 06/27/22 16:10 06/27/22 16:05 06/27/22 16:05 06/27/22 16:06 30 06/27/22 16:00 06/27/22 16:00 06/27/22 15:55 06/27/22 15:55 06/27/22 15:51 06/27/22 15:51 06/27/22 15:50 06/27/22 15:45 06/27/22 15:45 06/27/22 15:43 06/27/22 15:43 06/27/22 15:42 06/27/22 15:42 06/27/22 15:40 06/27/22 15:39 06/27/22 15:20 06/27/22 15:15 06/27/22 15:15 06/27/22 15:10 06/27/22 15:09 06/27/22 15:09 06/27/22 15:02 06/27/22 15:00 06/27/22 14:50 06/27/22 14:45 06/27/22 14:45 06/27/22 14:40 06/27/22 15:00 Room Air 06/27/22 14:30 06/27/22 14:30 06/27/22 14:20 06/27/22 14:15 06/27/22 14:15 06/27/22 14:10 06/27/22 14:01 06/27/22 14:01 06/27/22 14:00 06/27/22 13:50 06/27/22 13:46 06/27/22 13:46 06/27/22 13:40 06/27/22 13:32 06/27/22 13:32 06/27/22 13:30 06/27/22 13:20 06/27/22 13:15 06/27/22 13:15 06/27/22 13:10 06/27/22 13:00 06/27/22 13:00 06/27/22 12:50 06/27/22 12:48 06/27/22 12:48 06/27/22 12:45 06/27/22 12:45 06/27/22 12:40 06/27/22 12:30 06/27/22 12:30 06/27/22 12:24 06/27/22 12:10 06/27/22 12:00 06/27/22 12:00 06/27/22 11:50 06/27/22 11:45 06/27/22 11:45 06/27/22 11:40 06/27/22 11:30 06/27/22 11:30 06/27/22 11:23 06/27/22 11:23 06/27/22 11:20 06/27/22 11:14 06/27/22 12:01 Room Air 06/27/22 11:24 Room Air 06/27/22 11:14 Room Air Critical Care Results & Data Vital Signs (Past 12 Hours) Vital Signs Temp Pulse Pulse Resp BP BP Pulse Ox 06/27/22 18:38 60 19 99 06/27/22 18:38 142/52 H 06/27/22 18:36 60 18 99 06/27/22 18:35 60 16 99 06/27/22 18:35 151/55 H 06/27/22 18:34 60 18 99 06/27/22 18:33 60 15 98 06/27/22 18:33 157/58 H 06/27/22 18:32 60 15 99 06/27/22 18:30 60 17 97 06/27/22 18:30 181/65 H 06/27/22 18:28 60 18 98 06/27/22 18:28 151/59 H 06/27/22 18:26 60 16 99 06/27/22 18:25 60 15 99 06/27/22 18:25 139/53 L 06/27/22 18:28 60 14 98 06/27/22 18:24 60 15 99 06/27/22 18:23 138/52 L 06/27/22 18:23 60 16 98 06/27/22 18:22 60 15 98 06/27/22 18:20 60 15 98 06/27/22 18:20 136/52 L 06/27/22 18:18 60 16 98 06/27/22 18:18 135/51 L 06/27/22 18:16 60 16 98 06/27/22 18:15 134/52 L 06/27/22 18:15 60 15 98 06/27/22 18:14 60 15 98 06/27/22 18:13 60 15 97 06/27/22 18:13 132/51 L 06/27/22 18:12 60 15 98 06/27/22 18:10 60 15 97 06/27/22 18:10 131/50 L 06/27/22 18:08 60 15 97 06/27/22 18:08 131/50 L 06/27/22 18:06 60 14 96 06/27/22 18:05 60 14 96 06/27/22 18:05 132/51 L 06/27/22 18:04 60 16 96 06/27/22 18:03 60 15 96 06/27/22 18:03 130/50 L 06/27/22 18:02 60 14 95 06/27/22 18:00 60 14 91 06/27/22 17:58 60 15 92 06/27/22 17:58 128/48 L 06/27/22 17:56 60 14 92 06/27/22 17:55 60 14 92 06/27/22 17:55 126/50 L 06/27/22 17:54 60 14 93 06/27/22 17:53 60 15 93 06/27/22 17:53 126/49 L 06/27/22 17:52 60 14 93 06/27/22 17:50 60 14 93 06/27/22 17:48 60 15 93 06/27/22 17:28 60 15 98 06/27/22 17:28 129/49 L 06/27/22 17:26 60 14 98 06/27/22 17:25 60 14 97 06/27/22 17:25 131/50 L 06/27/22 17:24 60 14 97 06/27/22 17:23 131/49 L 06/27/22 17:23 60 14 97 06/27/22 17:22 60 14 97 06/27/22 17:20 60 14 96 06/27/22 17:18 60 14 96 06/27/22 17:18 134/50 L 06/27/22 17:16 60 15 96 06/27/22 17:15 60 14 96 06/27/22 17:15 135/51 L 06/27/22 17:14 60 14 96 06/27/22 17:13 60 14 96 06/27/22 17:13 130/53 L 06/27/22 17:12 60 14 96 06/27/22 17:10 60 14 96 06/27/22 17:08 61 14 96 12/15/22 17:08 134/50 L 06/27/22 17:06 62 14 96 06/27/22 17:05 134/50 L 06/27/22 17:05 60 14 96 06/27/22 17:04 60 14 96 06/27/22 17:03 131/52 L 06/27/22 17:03 60 15 96 06/27/22 17:02 60 14 96 06/27/22 17:00 60 14 97 06/27/22 17:00 131/53 L 06/27/22 16:58 60 14 98 06/27/22 16:58 124/51 L 06/27/22 16:56 60 14 98 06/27/22 16:55 60 14 98 06/27/22 16:55 116/48 L 06/27/22 16:54 60 14 98 06/27/22 16:53 60 14 98 06/27/22 16:53 114/49 L 06/27/22 16:52 60 14 98 06/27/22 16:50 60 14 98 06/27/22 16:50 113/47 L 06/27/22 16:49 60 14 98 06/27/22 16:49 113/48 L 06/27/22 16:45 60 14 97 06/27/22 16:45 113/48 L 06/27/22 16:43 60 14 98 06/27/22 16:43 116/51 L 06/27/22 16:40 60 14 98 06/27/22 16:35 60 14 96 06/27/22 16:35 144/60 H 06/27/22 16:30 134/58 L 06/27/22 16:30 60 15 96 06/27/22 16:25 60 14 98 06/27/22 16:25 182/66 H 06/27/22 16:20 14 97 06/27/22 16:20 160/68 H 06/27/22 16:15 20 99 06/27/22 16:15 180/73 H 06/27/22 16:10 20 100 06/27/22 16:10 174/72 H 06/27/22 16:05 61 20 100 06/27/22 16:05 161/70 H 06/27/22 16:06 60 20 100 06/27/22 16:00 61 20 100 12/15/22 16:00 171/73 H 06/27/22 15:55 60 20 100 06/27/22 15:55 168/70 H 06/27/22 15:51 148/92 H 06/27/22 15:51 60 23 92 06/27/22 15:50 60 24 100 06/27/22 15:45 60 23 94 06/27/22 15:45 148/62 H 06/27/22 15:43 60 97 06/27/22 15:43 150/71 H 06/27/22 15:42 97/71 L 06/27/22 15:42 60 24 95 06/27/22 15:40 61 96 06/27/22 15:39 61 99 06/27/22 15:20 61 22 98 06/27/22 15:15 190/74 H 06/27/22 15:15 21 99 06/27/22 15:10 21 06/27/22 15:09 182/80 H 06/27/22 15:09 61 20 91 06/27/22 15:02 60 22 98 06/27/22 15:00 60 20 93 06/27/22 14:50 60 24 100 06/27/22 14:45 60 20 99 06/27/22 14:45 132/80 06/27/22 14:40 60 20 99 06/27/22 15:00 60 21 96 06/27/22 14:30 60 22 100 06/27/22 14:30 136/63 06/27/22 14:20 60 22 100 06/27/22 14:15 123/83 06/27/22 14:15 60 24 94 06/27/22 14:10 60 19 97 06/27/22 14:01 135/58 L 06/27/22 14:01 60 24 100 06/27/22 14:00 60 20 100 06/27/22 13:50 60 15 100 06/27/22 13:46 60 18 98 06/27/22 13:46 128/60 06/27/22 13:40 60 22 98 06/27/22 13:32 146/59 H 06/27/22 13:32 60 18 99 06/27/22 13:30 60 20 100 06/27/22 13:20 60 17 98 12/15/22 13:15 137/56 L 06/27/22 13:15 60 20 98 06/27/22 13:10 60 21 100 06/27/22 13:00 60 18 100 06/27/22 13:00 141/62 H 06/27/22 12:50 60 17 91 06/27/22 12:48 60 23 94 06/27/22 12:48 146/56 H 06/27/22 12:45 120/65 06/27/22 12:45 60 22 97 06/27/22 12:40 60 22 99 06/27/22 12:30 60 17 98 06/27/22 12:30 138/62 06/27/22 12:24 99 06/27/22 12:10 60 16 06/27/22 12:00 65 20 06/27/22 12:00 121/68 06/27/22 11:50 60 18 06/27/22 11:45 134/61 06/27/22 11:45 60 17 06/27/22 11:40 60 22 06/27/22 11:30 62 22 97 06/27/22 11:30 130/65 06/27/22 11:23 64 16 100 06/27/22 11:23 132/81 06/27/22 11:20 67 20 98 06/27/22 11:14 76 17 100 06/27/22 12:01 60 20 96 06/27/22 11:24 61 22 130/65 99 06/27/22 11:14 36.8 C 66 20 150/72 H 98 O2 Del Method FiO2 06/27/22 18:38 06/27/22 18:38 06/27/22 18:36 06/27/22 18:35 06/27/22 18:35 06/27/22 18:34 06/27/22 18:33 06/27/22 18:33 06/27/22 18:32 06/27/22 18:30 06/27/22 18:30 06/27/22 18:28 06/27/22 18:28 06/27/22 18:26 06/27/22 18:25 06/27/22 18:25 06/27/22 18:28 30 06/27/22 18:24 06/27/22 18:23 06/27/22 18:23 06/27/22 18:22 06/27/22 18:20 06/27/22 18:20 06/27/22 18:18 06/27/22 18:18 06/27/22 18:16 06/27/22 18:15 06/27/22 18:15 06/27/22 18:14 06/27/22 18:13 06/27/22 18:13 06/27/22 18:12 06/27/22 18:10 06/27/22 18:10 06/27/22 18:08 06/27/22 18:08 06/27/22 18:06 06/27/22 18:05 06/27/22 18:05 06/27/22 18:04 06/27/22 18:03 06/27/22 18:03 06/27/22 18:02 06/27/22 18:00 06/27/22 17:58 06/27/22 17:58 06/27/22 17:56 06/27/22 17:55 06/27/22 17:55 06/27/22 17:54 06/27/22 17:53 06/27/22 17:53 06/27/22 17:52 06/27/22 17:50 06/27/22 17:48 06/27/22 17:28 06/27/22 17:28 06/27/22 17:26 06/27/22 17:25 06/27/22 17:25 06/27/22 17:24 06/27/22 17:23 06/27/22 17:23 06/27/22 17:22 06/27/22 17:20 06/27/22 17:18 06/27/22 17:18 06/27/22 17:16 06/27/22 17:15 06/27/22 17:15 06/27/22 17:14 06/27/22 17:13 06/27/22 17:13 06/27/22 17:12 06/27/22 17:10 06/27/22 17:08 06/27/22 17:08 06/27/22 17:06 06/27/22 17:05 06/27/22 17:05 06/27/22 17:04 06/27/22 17:03 06/27/22 17:03 06/27/22 17:02 06/27/22 17:00 06/27/22 17:00 06/27/22 16:58 06/27/22 16:58 06/27/22 16:56 06/27/22 16:55 06/27/22 16:55 06/27/22 16:54 06/27/22 16:53 06/27/22 16:53 06/27/22 16:52 06/27/22 16:50 06/27/22 16:50 06/27/22 16:49 06/27/22 16:49 06/27/22 16:45 06/27/22 16:45 06/27/22 16:43 06/27/22 16:43 06/27/22 16:40 06/27/22 16:35 06/27/22 16:35 06/27/22 16:30 06/27/22 16:30 06/27/22 16:25 06/27/22 16:25 06/27/22 16:20 06/27/22 16:20 06/27/22 16:15 06/27/22 16:15 06/27/22 16:10 06/27/22 16:10 06/27/22 16:05 06/27/22 16:05 06/27/22 16:06 06/27/22 16:00 06/27/22 16:00 06/27/22 15:55 06/27/22 15:55 06/27/22 15:51 06/27/22 15:51 06/27/22 15:50 06/27/22 15:45 06/27/22 15:45 06/27/22 15:43 06/27/22 15:43 06/27/22 15:42 06/27/22 15:42 06/27/22 15:40 06/27/22 15:39 06/27/22 15:20 06/27/22 15:15 06/27/22 15:15 06/27/22 15:10 06/27/22 15:09 06/27/22 15:09 06/27/22 15:02 06/27/22 15:00 06/27/22 14:50 06/27/22 14:45 06/27/22 14:45 06/27/22 14:40 06/27/22 15:00 Room Air 06/27/22 14:30 06/27/22 14:30 06/27/22 14:20 06/27/22 14:15 06/27/22 14:15 06/27/22 14:10 06/27/22 14:01 06/27/22 14:01 06/27/22 14:00 06/27/22 13:50 06/27/22 13:46 06/27/22 13:46 06/27/22 13:40 06/27/22 13:32 06/27/22 13:32 06/27/22 13:30 06/27/22 13:20 06/27/22 13:15 06/27/22 13:15 06/27/22 13:10 06/27/22 13:00 06/27/22 13:00 06/27/22 12:50 06/27/22 12:48 06/27/22 12:48 06/27/22 12:45 06/27/22 12:45 06/27/22 12:40 06/27/22 12:30 06/27/22 12:30 06/27/22 12:24 06/27/22 12:10 06/27/22 12:00 06/27/22 12:00 06/27/22 11:50 06/27/22 11:45 06/27/22 11:45 06/27/22 11:40 06/27/22 11:30 06/27/22 11:30 06/27/22 11:23 06/27/22 11:23 06/27/22 11:20 06/27/22 11:14 06/27/22 12:01 Room Air 06/27/22 11:24 Room Air 06/27/22 11:14 Room Air Lab & Micro Results (Past 24 Hours) No Data to Display No Data to Display No Data to Display Diagnostic Findings (Past 24 Hours) Cervical Spine CT 06/27/22 11:48 CT SCAN OF THE CERVICAL SPINE CLINICAL HISTORY: Fall. COMPARISON STUDY: CT of the cervical spine dated 01/16/2022. TECHNIQUE: CT scan of the cervical spine is performed from the skull base to the upper thoracic spine. Images are reviewed in the axial, sagittal, and coronal planes. IV contrast was not administered for this examination. A dose lowering technique was utilized adhering to the principles of ALARA. CT DOSE: 950.54 mGy.cm FINDINGS: Skeletal structures: The skeletal structures are osteopenic. There is no evidence of fracture or subluxation involving the cervical spine. Vertebral body height is maintained. There is minimal anterolisthesis at C4-C5 and C5-C6. Alignment is otherwise preserved. There is straightening of the cervical lordosis. Anterior osteophytes are seen throughout. The odontoid process and lateral masses are intact. The atlantoaxial articulation is preserved noting productive degenerative change. The spinous processes appear intact. There is moderate to advanced multilevel cervical spondylosis. Uncovertebral and facet arthropathy contribute to neural foraminal narrowing at most levels. Intervertebral discs: There is advanced disc space narrowing at C6-C7. Mild to moderate disc space narrowing is seen at the remaining cervical levels. Central canal: Widely patent. Soft tissues: The prevertebral and paraspinous soft tissues are within normal limits. There is atherosclerotic calcification of the carotid bulbs. Pacemaker leads are noted at the left thoracic inlet. Calvarium: The visualized calvarium at the skull base appears intact. Brain parenchyma: Partially visualized brain parenchyma at the skull base is within normal limits. Sinuses and mastoids: The visualized paranasal sinuses are clear. There is a r ight mastoid effusion. The left mastoid air cells are well pneumatized. Lung apices: Clear as visualized. IMPRESSION: 1. There is no evidence of fracture or subluxation involving the cervical spine. 2. Osteopenia and spondylitic change as above. ACT 112: Negative or not required by law. Electronically signed by: Colten Jacinto M.D. 06/27/2022 12:30 PM Chest X-Ray 06/27/22 11:48 SINGLE VIEW CHEST CLINICAL HISTORY: Fall. FINDINGS: An AP, portable, upright chest radiograph is compared to study dated 03/20/2020 and correlated with chest CT dated 09/07/2019. The examination is degraded by portable technique and apical lordotic positioning. A 3-lead cardiac AICD is unchanged in position and partially obscures the left apex. A stent projects over the left axillary region. The heart is enlarged and noting atherosclerotic calcification of the thoracic aorta. The pulmonary vasculature is noncongested. Chronic interstitial thickening is similar to previous. Scarring/atelectasis is noted at the lung bases. No airspace consolidation or large pleural effusion is identified. No pneumothorax is seen. The skeletal structures are osteopenic. The bony thorax is grossly intact. A tiny metallic foreign body is again seen in the soft tissues of the right shoulder. IMPRESSION: 1. Cardiomegaly and AICD without radiographic evidence of congestive failure. 2. No airspace consolidation or large pleural effusion is identified. ACT 112: Negative or not required by law. Electronically signed by: Colten Jacinto M.D. 06/27/2022 12:[address] 06/27/22 11:48 CT SCAN OF THE BRAIN WITHOUT IV CONTRAST CLINICAL HISTORY: Fall. COMPARISON STUDY: CT of the brain dated 01/16/2022. TECHNIQUE: Unenhanced axial CT scan of the brain is performed from the vertex to the skull base. A dose lowering technique was utilized adhering to the principles of ALARA. FINDINGS: Brain parenchyma: There is an acute subdural hemorrhage identified along the right convexity. This measures up to 13 mm in diameter and effaces the subjacent cortical sulci. There is also subdural hemorrhage along the right posterior falx and the right tentorium cerebelli. This measures up to 5 mm in thickness. No additional foci There is age-related involutional change noting moderate subcortical and periventricular microangiopathic disease. There is no parenchymal hematoma, midline shift, or evidence of acute territorial ischemia by CT criteria. Cutler-white matter differentiation is preserved. Mineralization is noted in the basal ganglia. Ventricles, sulci, cisterns: Prominent secondary to involutional change. Intracranial vasculature: There is atherosclerotic calcification of the cavernous carotid and vertebral artery. Calvarium: The skeletal structures are osteopenic. No depressed calvarial fracture is seen. Soft tissues: There is a right parietal scalp contusion. Sinuses and mastoids: The paranasal sinuses are clear. There is a right mastoid effusion. The left mastoid air cells are well pneumatized. Orbits: The bony orbits are grossly intact. There are bilateral ocular lens implants. IMPRESSION: 1. Acute subdural hemorrhages along the right convexity, the posterior falx, and the right tentorium cerebelli as above. 2. This causes mild mass effect on the subjacent cortical sulci. 3. There is no midline shift or evidence of acute territorial ischemia by CT criteria. ACT 112: Negative or not required by law. Electronically signed by: Colten Jacinto M.D. 06/27/2022 12:37 PM Humerus X-Ray 06/27/22 11:48 XR humerus RT 2V, XR shoulder RT min 2V routine CLINICAL HISTORY: fall. Right shoulder and arm pain. COMPARISON STUDY: Right shoulder 01/16/2022.. FINDINGS: No fracture or dislocation within the right shoulder or right humerus. There is soft tissue swelling within the right shoulder with a possible moderate effusion within the glenohumeral joint. Moderate degenerative changes at the navicular and glenohumeral joint are also noted. The right clavicle appears intact. A punctate metallic density overlying the proximal shaft of the humerus. This remains unchanged. Narrowing of the subacromial space consistent with chronic rotator cuff injury which is also unchanged. No significant elbow effusion. The bones are osteopenic. IMPRESSION: 1. No acute fracture or dislocation within the right shoulder or right humerus. 2. Soft tissue swelling within the right shoulder with a moderate joint effusion. ACT 112: Negative or not required by law. Electronically signed by: Cristian Renteria M.D. 06/27/2022 12:22 PM Shoulder X-Ray 06/27/22 11:48 XR humerus RT 2V, XR shoulder RT min 2V routine CLINICAL HISTORY: fall. Right shoulder and arm pain. COMPARISON STUDY: Right shoulder 01/16/2022.. FINDINGS: No fracture or dislocation within the right shoulder or right humerus. There is soft tissue swelling within the right shoulder with a possible moderate effusion within the glenohumeral joint. Moderate degenerative changes at the navicular and glenohumeral joint are also noted. The right clavicle appears intact. A punctate metallic density overlying the proximal shaft of the humerus. This remains unchanged. Narrowing of the subacromial space consistent with chronic rotator cuff injury which is also unchanged. No significant elbow effusion. The bones are osteopenic. IMPRESSION: 1. No acute fracture or dislocation within the right shoulder or right humerus. 2. Soft tissue swelling within the right shoulder with a moderate joint effusion. ACT 112: Negative or not required by law. Electronically signed by: Cristian Renteria M.D. 06/27/2022 12:[address] 06/27/22 15:18 CT OF THE HEAD WITHOUT CONTRAST CLINICAL HISTORY: Altered mental status. COMPARISON STUDY: Head CT June 27, 2022 at 12:[address] DOSE: 537.48 mGy.cm TECHNIQUE: Helical axial images of the head were obtained without IV contrast. Automated exposure control was utilized for the study. A dose lowering technique was utilized adhering to the principles of ALARA. FINDINGS: Acute right-sided extra axial hematoma has significantly increased in size and density since head CT performed earlier today. The hematoma now measures up to 1.5 cm in maximal thickness. An epidural component superimposed upon a subdural hematoma cannot be excluded given the lenticular configuration of the hematoma. Mass effect has significantly increased. There is 1.1 cm of leftward midline shift and compression of the right lateral ventricle. There is also developing subfalcine shift and possible herniation. There is no evidence for uncal herniation at this time. Subdural hemorrhage along the right tentorium is noted. There is also suspected trace hemorrhage along the left groin. There may be trace hemorrhage within the third ventricle. Bilateral basal ganglia calcification is noted. There are calcifications within the bilateral cerebellar hemispheres which are chronic. A right parietal scalp contusion is present. There is no acute calvarial fracture. Right mastoid air cells are partially opacified. This is unchanged from earlier head CT of January 16, 2022. IMPRESSION: Significant increase in size and density of the acute extraaxial hematoma overlying the right convexity. The majority of the hemorrhage is subdural however a superimposed epidural hematoma cannot be excluded. Significant increase in mass effect with sulcal effacement, leftward midline shift, compression of the right lateral ventricle and subfalcine shift with possible early herniation. Findings discussed with Dr. Natarajan at time of dictation. ACT 112: Negative or not required by law. Electronically signed by: Orlando Patterson M.D. 06/27/2022 3:39 PM Chest X-Ray 06/27/22 16:03 SINGLE VIEW CHEST CLINICAL HISTORY: Endotracheal tube placement. FINDINGS: An AP, portable, upright chest radiograph is compared to study performed earlier the same day 06/27/2022 and correlated with chest CT dated 09/07/2019. The examination is degraded by portable technique and patient rotation. An endotracheal tube has been placed. The tip projects over the right mainstem bronchus. A 3-lead cardiac AICD is unchanged in position and partially obscures the left the chest. A stent projects over the left axillary region. The heart is enlarged and noting atherosclerotic calcification of the thoracic aorta. The pulmonary vasculature is noncongested. Chronic interstitial thickening is similar to previous. There is increasing bibasilar atelectasis. No airspace consolidation or large pleural effusion is identified. No pneumothorax is seen. The skeletal structures are osteopenic. The bony thorax is grossly intact. A tiny metallic foreign body is again seen in the soft tissues of the right shoulder. IMPRESSION: 1. An endotracheal tube has been placed. The tip projects over the right mainstem bronchus and repositioning is indicated. 2. Cardiomegaly and AICD without radiographic evidence of congestive failure. 3. Increasing bibasilar atelectasis. ACT 112: Negative or not required by law. Electronically signed by: Colten Jacinto M.D. 06/27/2022 4:[address] 06/27/22 17:14 CT OF THE HEAD WITHOUT CONTRAST CLINICAL HISTORY: Post lashae hole. COMPARISON STUDY: Head CT June 27, 2022 at 3:[address] DOSE: 537.48 mGy.cm TECHNIQUE: Helical axial images of the head were obtained without IV contrast. Automated exposure control was utilized for the study. A dose lowering technique was utilized adhering to the principles of ALARA. FINDINGS: Endotracheal and nasogastric tubes are partially imaged. Interval placement of a right-sided lashae hole is noted, overlying the largest component of the acute extra-axial hematoma overlying the right convexity. There is gas within this hematoma. This hematoma has increased in size since prior head CT, measuring 1.8 cm in maximal thickness. This has a lenticular configuration and may reflect an epidural hematoma. Additional subdural hemorrhage overlying the right cerebral hemisphere has also increased since prior exam. This contains a fluid fluid level. Mass effect is increased is 1.3 cm of leftward midline shift, compression of the right lateral ventricle and subfalcine herniation. There is no evidence for uncal herniation at this time. White matter hypodensities are again noted. There is bilateral basal ganglia and cerebellar hemispheric calcifications. Trace free fluid within the right mastoid air cells is unchanged. There is no acute calvarial fracture. IMPRESSION: Interval placement of a right lashae hole with gas now noted in hematoma. Increase in size of the acute extra-axial hematoma overlying the right cerebral hemisphere. The largest component of the hematoma may reflect an epidural hematoma given the configuration. Additional extra-axial hemorrhage is l subdural. Increase in mass effect with significant leftward midline shift, compression of the right lateral ventricle and subfalcine herniation. ACT 112: Negative or not required by law. Electronically signed by: Orlando Patterson M.D. 06/27/2022 5:46 PM I & O Totals 24 Hours 06/26/22 06/27/22 06/28/22 06:59 06:59 06:59 Intake Total 354.5 / 354.5 Balance 354.5 / 354.5 Cumulative 06/27/22 10:53 thru 06/27/22 17:24 Intake Total 354.5 Balance 354.5 RT Ventilator Mngmt (Last Documented) Ventilator Ordered Settings Ventilator Support Mode Assist Control 06/27/22 18:28 Respiratory Rate 19 06/27/22 18:38 Ventilator Tidal Volume 350 06/27/22 18:28 Setting Minute Ventilation 5.0 06/27/22 18:28 Positive End Expiratory 5 06/27/22 18:28 Pressure Fraction of Inspired Oxygen 30 06/27/22 18:28 Ventilator - PT Measurements Respiratory Rate 19 Exhaled Tidal Volume 355 Minute Ventilation 5.0 Peak Inspiratory Airway 17 Pressure Respiratory Cycle Inspiratory: 1:4.4 Expiratory Ratio End-Tidal CO2 40 Dynamic Lung Compliance 29.58 Normal Static Lung Compliance 47.00 Coding Level of Care Code Critical Care ea addt'l 30 min Diagnoses End stage renal disease on dialysis N18.6; Z99.2 Traumatic subdural hematoma S06.5XAA Brain herniation G93.5
[2022-06-27] MEDS: SODIUM CHLORIDE 0.9% 1000ML 1,000 ML IV SCH (19:25)
[2022-06-27] MEDS ORDERED: MoRPHine SULFATE 2 MG/ML CARP IV PRN (20:45)
[2022-06-27] MEDS ORDERED: ONDANSETRON 4 MG OD TAB SL PRN (20:45)
[2022-06-27] MEDS ORDERED: GLYCOPYRROLATE 0.2 MG/ML VIAL IV PRN (20:45)
[2022-06-27] MEDS ORDERED: ONDANSETRON INJ 2 MG/ML 2 ML VIAL IV PRN (20:45)
[2022-06-27] MEDS ORDERED: LORazepam 0.5 MG in SYRINGE 0 ML IV PRN (20:45)
--- NOTE | 2022-06-27 20:51 | Communication Note ---
Date of Service: June 27, 2022 Patient has now arrived to the ICU on the ventilator and plan for patient to transition to comfort measures with palliative withdrawal. I did speak with the patient's POA Anac in regards to timing of withdrawal to see if any family would like to be at the bedside. She states that there is no family in the area and is okay with proceeding with palliative withdrawal. She stated that she will keep her phone on tonight so that we may contact her in the event of her passing. She does not have the contact for the son Sergei and states that he l maría in [place]. The number on file did not work for Sergei. Comfort measures orders have now been placed and we are proceeding with palliative withdrawal at this time. Coding Level of Care Code None
[2022-06-27] MEDS ORDERED: ICU Protocol for HYPERglycemia SCH (21:00)
[2022-06-27 21:44] VITALS: BP 79/45; O2SAT 93
[2022-06-28] MEDS: SODIUM CHLORIDE 0.9% 1000ML 1,000 ML IV SCH (03:12)
--- NOTE | 2022-06-28 04:21 | Death Pronouncement Note ---
Date of Service June 28, 2022 Pronouncement Note Admission Date June 27, 2022 Additional Data Attending physician: Cheryl Ricketts DO
--- NOTE | 2022-06-28 04:21 | Discharge Summary ---
Date of Service June 28, 2022 Admission HPI Per Admitting Provider This is a 75-year-old female who has significant past medical history of ESRD on HD T//Fri, idiopathic cardiomyopathy with history of reduced EF now normalized status post biventricular ICD implantation, history of V. tach status post AICD, PAF off anticoagulation secondary to GI bleeding issues, T2DM insulin-dependent, cirrhosis of liver with ascites, thrombocytopenia, anemia of chronic disease, history of endocarditis, secondary hyperparathyroidism, HTN, HLD, history of remote CVA in 1980s who presents to ED after fall. Per report given earlier to ED provider, patient woke up feeling weak this morning and fell mid-morning, striking right side of head. Presented with a headache and pain in RUE. No initial confusion, nausea or vomiting. CT head revealed acute subdural hemorrhages causing a mild mass-effect along the subjacent cortical sulci but no midline shift. Patient not on any blood thinners except for aspirin. Was accepted at [facility] as a trauma transfer but unfortunately due to [place] conditions with [place]storm, [place] and there are no EMS transfers at this time. Per discussion between ED and ICU, patient was to be held in ED until transport to [place] became available. This afternoon, patient reportedly became more confused and repeat CT head showed significant increase in size and density of the acute extraaxial hematoma overlying the right convexity with sign ificant increase in mass effect with sulcal effacement, leftward midline shift, compression of the right lateral ventricle and subfalcine shift with possible early herniation. Principal Diagnosis Traumatic intracranial hemorrhage Discharge Data Allergies Allergy/AdvReac Type Severity Reaction Status Date / Time strawberry Allergy Severe EDEMA OF Verified 06/27/22 15:31 FACE /LIPS /TONGUE adhesive Allergy Mild RXN TO Verified 06/27/22 15:31 ADHESIVE ON NITRO PATCH DESIREE Inhibitors AdvReac Intermediate COUGH Verified 06/27/22 15:31 amlodipine AdvReac Intermediate RETAIN Verified 06/27/22 15:31 FLUID diphenhydramine AdvReac Intermediate VERY WEAK, Verified 06/27/22 15:31 CHF lisinopril AdvReac Intermediate COUGH Verified 06/27/22 15:31 nitroglycerin AdvReac Intermediate HEADACHE/NA Verified 06/27/22 15:31 USEA Sulfa (Sulfonamide AdvReac Intermediate "KNOCKS ME Verified 06/27/22 15:31 Antibiotics) OUT" Consultations 06/27/22 17:14 ED Decision to Admit Stat 06/27/22 19:17 Consult Burn Nurse Routine 06/27/22 20:46 Consult Palliative Care Routine Ordered Studies 06/27/22 11:48 CT cervical spine wo con Stat CT head/brain wo con Stat 06/27/22 15:18 CT head/brain wo con Stat 06/27/22 17:14 CT head/brain wo con Stat Hospital Course (1) Traumatic epidural hematoma: (2) Brain herniation: (3) Traumatic subdural hematoma: (4) ESRD on dialysis: (5) Anemia of renal disease: (6) Biventricular ICD (implantable cardioverter-defibrillator) in place: (7) Cirrhosis: (8) Diabetes mellitus, type II: (9) Idiopathic cardiomyopathy: (10) Paroxysmal atrial fibrillation: Plan Overall this is a 76 yo female who presented to the ER after a traumatic subdural hematoma after a fall forward from standing height. There has been reportedly multiple falls in the past year. On arrival she had a GCS of 15 with able to provide a history. Head was normocephalic atraumatic and there was pain on palpation of the proximal humerus reproducing one of her chief complaints of right-sided pain status post fall from weakness. Her vital signs were stable, white blood cell count was 5, hemoglobin was 11.8 with a platelet count of 64. Noted cirrhosis and history. Coagulation studies were within normal limits. Potassium was 4.6. The patient was COVID-positive. CT imaging revealed acute subdural hemorrhaging along the right convexity posterior falx and right tentorium cerebelli which caused a mild mass-effect but no midline shift. She was on baby aspirin. The ER physician discussed the case with Dr. Fuller who was a trauma physician at [facility]. Unfortunately because of the weather the interstate was [place] and there was no EMS transfers at this time. The case was discussed with the [employer] area supervisor on-call, Dr. Lawson, who was unable to accept the patient into the ICU pending transfer. Around 3 PM the patient appeared more confused and GCS dropped to 10. Blood sugar was checked and within normal limits and the patient was sent for repeat CT scan. Unfortunately there was an increased size of the bleed and there was now evidence of an epidural bleed on top of the previously seen subdural bleed along with mass-effect causing a leftward shift and possibly early subfalcine herniation. Head of bed was elevated and she was prepared for intubation. The retail [employer] area supervisor assessed the patient at the bedside and the patient was intubated. Mannitol, desmopressin and hypertonic saline were ordered and neurosurgery at [facility] was contacted, ER physician spoke with Dr. Lopez. While this conversation was taking place, the retail [employer] area supervisor attempted to place a bur hole. During the conversation, the clinical condition was explained along with the CT imaging to neurosurgery The images were unable to be sent secondary to logistics. A conference call then took place with the ER physician, the POA, Dr. Lopez from neurosurgery at [facility] and Dr. Tuttle (trauma surgery at [facility]). After a detailed explanation, the POA decided the patient should have no further heroic measures performed and wanted to make the patient comfort care. She will be transitioned to the ICU pending final decisions from the family. (Preceding documentation as per admitting provider.) Patient admitted to the ICU for further management. ICU provider was able to contact patient's POA ( Anca Nazario) who agreed to palliative withdrawal of care. Patient transitioned to comfort measures. 06/28/22 Patient pronounced by ICU staff at 406 AM. Total time to prepare this discharge summary was less than 10 minutes. Total Time Total Time Spent Total Time Spent (In Minutes): 10 minutes Discharge Plan Discharge Items Patient Disposition: Other Date/Time: 06/28/22 04:06
--- NOTE | 2022-07-05 07:45 | Coding Query ---
CODING QUERY To promote full compliance with coding requirements relating to patient care, provider participation is requested in all cases of computer language coder uncertainty. Please assist us with the question(s) below: Coding Question(s): Please document the cause of . Thank you . Eleazar Bojorquez [facility] Physician's Response(s): Principal Diagnosis: "that condition established after study, to be chiefly responsible for occasioning the admission of the patient to the hospital for care." Co-Existing Principal Diagnosis: "when two or more diagnoses equally meet the criteria for principal diagnosis as determined by the circumstances of admission, diagnostic work up, and/or therapy provided, and the Alphabetic Index, Tabular List, or another coding guideline does not provide sequencing direction, any one of the diagnoses may be sequenced first." "When the physician has documented what appears to be a current diagnosis in the body of the record, but has not included the diagnosis in the final diagnostic statement, the physician should be asked whether the diagnosis should be added." (Source [facility] 2 QTR90. p3-4) ISSA
== END 2022-06-28 05:03 | disposition expired | DRG 25 ==
LOC: ED 11:08 → 1E 17:31